=== PATIENT | male | born 1940 | race Caucasian/White ===

== ENCOUNTER → 2018-01-18 | Outpatient (CLI) | payer MEDICARE ==
--- NOTE | 2018-01-18 15:36 | US ---
EXAMINATION TYPE: US thyroid st tissue head/neck DATE OF EXAM: 01/18/2018 COMPARISON: NONE CLINICAL HISTORY: R59.0 ENLARGED LYMPH NODES. Patient stated physician noted right upper neck nodes: order was for enlarged lymph nodes, but thyroid US also completed due to incidental thyroid nodules s een during neck survey for lymph nodes GLAND SIZE: Right Lobe: 4.2 x 1.4 x 1.4 cm Overall Parenchyma: homogenous Left Lobe: 55x 2.8 x 1.7 cm Overall Parenchyma: heterogeneous Isthmus Thickness: 1.1 cm NODULES RIGHT: # of nodules measured on right: 2 1. 0.8 X 0.7 x 0.6 cm hypoechoic mixed nodule at the lower pole with well-defined margins. This no dule is wider than tall and shows no intranodular vascularity. 2. 0.8 X 1.1 x 0.6 cm isoechoic solid nodule at the lower pole with well-defined margins. This nodu le is wider than tall and shows no intranodular vascularity. LEFT: # of nodules measured on left: 3 1. 0.8 X 0.5 x 0.4 cm hyperechoic solid nodule at the upper pole with irregular margins; with prima rily calcified nodule. This nodule is wider than tall and shows no intranodular vascularity. 2. 1.3 X 1.3 x 1.1 cm hypoechoic mixed nodule at the lower pole with well-defined margins. This nod ule is wider than tall and shows intranodular vascularity. 3. 2.5 X 2.4 x 1.5 cm hyperechoic mixed nodule at the lower pole with poorly defined margins. This nodule is wider than tall and shows intranodular vascularity. ISTHMUS: # of nodules measured in the isthmus: 1 1. 0.98cm X 0.84 x 0.84 cm hypoechoic mixed nodule at the lower right pole with irregular margins. This nodule is wide as is tall and shows no intranodular vascularity. Bilateral neck scanned: couple of lymph nodes seen inferior to submandibular gland with right upper n misha larger node = 0.8 x 0.7 x 0.8cm and left upper neck node seen = 1.7 x 0.7 x 0.3cm. IMPRESSION: 1. Bilateral thyroid nodules. A larger nodules within the inferior left thyroid lobe near the supracl avicular region.
== END | disposition home or self-care (01) ==
LOC: RADUSWWP 14:25
PROVIDERS: ATTEND Family Medicine
DX: E04.2 Nontoxic multinodular goiter (principal)
CPT/HCPCS: 76536

== ENCOUNTER → 2018-02-08 | Outpatient (CLI) | payer MEDICARE ==
[2018-02-08 09:23] VITALS: BP 122/63; PULSE 58; RESP 12; TEMP 98; BMI 23.0
--- NOTE | 2018-02-08 10:07 | P.GSHP ---
History of Present Illness H&P Date: 02/08/18 Chief Complaint: swelling in bilateral breast The patient is a 77-year-old white male who presents with a complaint of bilateral breast swelling. He states that the breast are painful with palpation. The patient states that he was treated with hormone shots for prostate cancer approximately 2 years ago and this corresponds to the time when he noted increased size of the breast. The patient had bilateral mammograms performed on 9717. The findings were consistent with symmetric retroareolar flame shaped densities compatible with gynecomastia. He had no groups of suspicious calcifications and no focal suspicious masses or architectural distortion noted. The patient has no history of any trauma to the breast. He has no history of any infection in the breast. He has no history of any nipple discharge or skin changes. The patient was treated with radiation and hormone therapy. He did not have any surgery for the prostate cancer. The hormone therapy was leuprolide acetate injections every 6 months, he had three treatments. His last treatment was a year ago. The patient states that the firmness in his breast is eating worse despite the fact he has not had any of the hormone treatments for over a year. His last PSA was 0.09. Family History: no family history of cancer Surgical History: 1. back surgery for herniated disc 2. pacemaker Medical history: 1. Multiple sclerosis 2. Atrial fibrillation 3. Prostate cancer treated medically 4. History of myocardial infarction Social History: smoke: stopped 1991, smoked 1PPD/30 years alcohol: beer, 2-3/week drug: none - Constitutional Comment: BMI: 23.1 Constitutional: Denies chills, Denies fever - EENT Eyes: denies blurred vision, denies pain Ears: deny: decreased hearing Ears, nose, mouth and throat: Denies headache, Denies sore throat - Breasts Breasts: bilateral: as per HPI - Cardiovascular Comment: [place], pacemaker, atrial fib Cardiovascular: Reports high blood pressure, Reports irregular heart beat - Respiratory Respiratory: Denies cough, Denies 7 - Gastrointestinal Comment: last colonoscopy 3 years ago Gastrointestinal: Reports constipation, Denies abdominal pain, Denies diarrhea, Denies nausea, Denies vomiting - Genitourinary (Male) Comment: prostate cancer Genitourinary: Denies dysuria, Denies hematuria - Musculoskeletal Comment: back surgery Multiple Sclerosis - Integumentary Integumentary: Denies pruritus, Denies rash - Neurological Comment: multiple sclerosis - Psychiatric Psychiatric: Denies anxiety, Denies depression - Endocrine Endocrine: Denies fatigue, Denies weight change - Hematologic/Lymphatic Comment: warfarren - Allergic/Immunologic Comment: none Past Medical History Past Medical History: Atrial Fibrillation, Hyperlipidemia Additional Past Medical History / Comment(s): MS History of Any Multi-Drug Resistant Organisms: None Reported Past Surgical History: Heart Catheterization, Pacemaker Additional Past Surgical History / Comment(s): PACEMAKER Past Anesthesia/Blood Transfusion Reactions: No Reported Reaction Type of Cardiac Device: Permanent Pacemaker Device Placement Date:: 05/02/11 Past Psychological History: No Psychological Hx Reported Smoking Status: Former smoker Past Alcohol Use History: Occasional Past Drug Use History: None Reported Medications and Allergies Home Medications Medication Instructions Recorded Confirmed Type Aspirin 81 mg PO DAILY 09/02/13 02/08/18 History Baclofen [Lioresal] 10 mg PO TID 09/02/13 02/08/18 History Digoxin [Lanoxin] 125 mcg PO DAILY 09/02/13 02/08/18 History Isosorbide Mononitrate [Imdur] 60 mg PO DAILY 09/02/13 02/08/18 History Metoprolol Succinate [Toprol XL] 50 mg PO BID 09/02/13 02/08/18 History Ramipril [Altace] 10 mg PO DAILY 09/02/13 02/08/18 History Simvastatin [Zocor] 40 mg PO AC-SUPPER 09/02/13 02/08/18 History Warfarin [Coumadin] 2.5 mg PO DAILY 09/02/13 02/08/18 History Gabapentin [Neurontin] 600 mg PO HS 04/14/14 02/08/18 History Allergies Allergy/AdvReac Type Severity Reaction Status Date / Time No Known Allergies Allergy Verified 09/02/13 10:51 Surgical - Exam Vital Signs Temp Pulse Resp BP 98 F 58 L 12 122/63 02/08/18 09:18 02/08/18 09:18 02/08/18 09:18 02/08/18 09:18 BMI 23.1 - General thin moderate distress - Eyes normal ocular movement - ENT normal pinna - Neck no masses, trachea midline - Respiratory normal respiratory effort, clear to auscultation - Cardiovascular Rhythm: regular Heart Sounds: normal: S1, S2 - Abdomen Abdomen: soft Hernia: inguinal - Genitourinary no testicular masses testicles present, testicles non-tender - Integumentary no rash, no abnormal pigmentation - Neurologic week lower extremities - Musculoskeletal gait affected uses a cane - Psychiatric oriented to time, oriented to person, oriented to place, speech is normal, memory intact Breast examination: Right breast: Multi-positional exam firmness under the nipple area over area believed to be related to gynecomastia; the area of fullness is 3 x 3 cm Right axilla: No adenopathy of concern Left breast: Firmness under the nipple areolar area believed to be related to gynecomastia no other dominant masses or nodules of concern in either breast, area of fullness is 6 x 6 cm Left axilla: No adenopathy of concern Results Radiographic reports reviewed Assessment and Plan Assessment: Impression: 1. Bilateral gynecomastia 2. History of prostate cancer patient with Lupron 3. Normal testicular exam 4. Atrial fibrillation 5. Multiple sclerosis 6. History of back surgery for ruptured disc Plan: 1. Close surveillance of gynecomastia will follow up in 3 month's time to determine if this is increasing in size 2. Medical management of medical conditions At had a discussion with the patient and his regarding surgical intervention versus watchful waiting. At this time I have reassured them that I did not believe that this is a malignancy. I think it is very reasonable to follow this conservatively and see its natural course. CC: Dr. Jeison Reyes
== END | disposition home or self-care (01) ==
LOC: WWCWWP 09:12
PROVIDERS: ATTEND Surgery
DX: Z53.9 Procedure and treatment not carried out, unspecified reason (principal)

== ENCOUNTER 2018-03-29 09:24 | Day surgery (SDC) | payer MEDICARE ==
[~2018-03-29 09:24] MED LIST: ALPRAZolam 0.25 MG TAB PO ONE
[2018-03-29 10:07] LABS: INR 1.2 (<1.2); Prothrombin Time 12.2 sec (9.0-12.0)
[2018-03-29 10:09] VITALS: RESP 16; TEMP 97.8
--- NOTE | 2018-03-29 11:46 | US ---
ULTRASOUND GUIDED FNA THYROID BIOPSY: CLINICAL HISTORY: Request for 2 left-sided thyroid nodules for FNA FINDINGS: The procedure was explained to the patient. The risks, complications, benefits and alternatives were discussed and any questions were answered. Informed consent was obtained. Patient was placed supin e on the ultrasound table and prepped and draped in the usual sterile fashion. Utilizing a 25 gauge needle, five passes were made into the 2 requested left thyroid nodules. Patient was stable throughout the procedure. Pathology is pending. All elements of maximal barrier technique were utilized. IMPRESSION: 1. Successful ultrasound guided FNA thyroid biopsy.
[2018-03-29 13:47] VITALS: BP 142/70; PULSE 58
== END 2018-03-29 11:00 | disposition home or self-care (01) ==
LOC: RADPROMAIN 09:24
PROVIDERS: ATTEND Surgery Plastic and Reconstructive Surgery
DX: E04.1 Nontoxic single thyroid nodule (principal)
CPT/HCPCS: 10022; 36415; 76942; 85610; 88173; 88305

== ENCOUNTER → 2018-08-08 | Outpatient (CLI) | payer MEDICARE ==
[2018-08-08 10:15] VITALS: BP 114/71; PULSE 81; RESP 18; TEMP 97.2; BMI 23.0
--- NOTE | 2018-08-08 10:44 | P.PN ---
Subjective Progress Note Date: 08/08/18 Principal diagnosis: bilateral gynecomastia There is a 78-year-old white male who presented initially with a complaint of bilateral breast swelling. His breasts were noted to be painful with palpation. Patient states his breast have become more swollen since his visit in January. They are painful greatest with palpation. The patient had been treated with hormone shots for prostate cancer approximately 2-1/2 years ago and this corresponded to the time when he noted increase in size of his breast. The patient had bilateral mammograms performed in December 2017. The findings were consistent with gynecomastia. The patient has no history of any trauma to his breast. He has no history of any infections breast. No history of any nipple discharge or skin changes. The patient was treated for his prostate cancer with radiation and hormone therapy. He did not have any surgery for the prostate cancer, he was treated with leuprolide acetate injections every 6 months and he had 3 of these treatments. His last treatment was approximately year and a half ago. He is uncertain as to whether the pain is any worse although the breast are larger. The left is now larger than the right side. The patient's medications include Neurontin baclofen Isorbid cerivastatin Altase metipranolol digoxin Coumadin aspirin and Ocrevus, for primary progressive MS. Family History: none of cancer Surgical history: 1. Back surgery for herniated disc 2. Pacemaker Medical history: 1. Primary progressive multiple sclerosis 2. Atrial fibrillation 3. Prostate cancer treated medically 4. History of myocardial infarction Social history: Smoke: Stopped in 1991 had smoked 1 pack per day for 30 years Alcohol:. 2-3 per week Drugs: Negative Review of systems HEENT: Negative Lungs: Negative Cardiac: Atrial fibrillation, history of myocardial infarction GI: Intermittent constipation last colonoscopy approximately 4 years ago : Negative Musculoskeletal: Primary progressive multiple sclerosis arthritis Psychiatric: negative neurologic: weak right side hematologic: Coumadin for atrial fibrillation Allergies: none Objective - Vital Signs Vital signs: Vital Signs Temp 97.2 F L 08/08/18 10:09 Pulse 81 08/08/18 10:09 Resp 18 08/08/18 10:09 BP 114/71 08/08/18 10:09 Pulse Ox 94 L 08/08/18 10:09 Intake & Output 08/07/18 08/08/18 08/08/18 18:59 06:59 18:59 Weight 77.111 kg - Exam BMI 23.1 - Constitutional General appearance: Present: average body habitus - EENT Eyes: Present: EOMI ENT: Present: hearing grossly normal - Neck Neck: Present: normal ROM - Respiratory Respiratory: bilateral: CTA - Cardiovascular Rhythm: regular Heart sounds: normal: S1, S2 - Gastrointestinal General gastrointestinal: Present: soft - Musculoskeletal Musculoskeletal: Present: right sided weakness - Psychiatric Psychiatric: Present: A&O x's 3, appropriate affect, intact judgment & insight - Additional findings Additional findings: Breast examination: Right breast: Multiple positional exam fibrocystic changes, mild fullness under the nipple areolar complex consistent with gynecomastia Right axilla: No adenopathy of concern Left breast: Slightly larger than right breast, multi-positional exam fibrocystic changes, mild fullness under the nipple area complex consistent with gynecomastia like changes beneath the nipple areolar complex Left axilla: No adenopathy of concern Assessment and Plan Assessment: Impression: 1. Bilateral gynecomastia left side slightly larger than the right side 2. Progressive primary multiple sclerosis 3. Right-sided weakness 4. History of prostate cancer treated with anti-hormone therapy and radiation 5. Atrial fibrillation 6. Back surgery for ruptured disc Plan: 1. Close surveillance of gynecomastia follow up in 6 month's time to watch this area 2. Medical management of medical conditions We have discussed repeating an ultrasound and this will be done at his next visit at this time the patient and his understand the options surgical intervention but wanted to wait. If the area increases in size such that they're concerned they will see me before otherwise I'll see him in 6 months time at this time there is no indication that there is any malignancy. Testicular exam was performed at his last appointment, at this appointment he states that his testicles have not changed in size and there are no lumps or nodules. Cc: Dr. Jeison Reyes
== END ==
LOC: WWCWWP 09:26
PROVIDERS: ATTEND Surgery
DX: Z53.9 Procedure and treatment not carried out, unspecified reason (principal)

== ENCOUNTER → 2018-08-14 | Outpatient (CLI) | payer MEDICARE ==
[~2018-08-14] MED LIST changes: -ALPRAZolam 0.25 MG TAB PO ONE; +SODIUM CHLORIDE 0.9% 500 ML 500 ML in EMPTY BAG 1 BAG IV PRN; +methylPREDNISolone SOD SUCC 1,000 MG in SODIUM CHLORIDE 0.9% 250 ML IVPB ONE
[2018-08-14 14:00] VITALS: BP 128/69; PULSE 75; RESP 16; TEMP 97.6
== END ==
LOC: PROCWHC3 13:17
PROVIDERS: ATTEND Psychiatry & Neurology Neurology
DX: G35 Multiple sclerosis (principal)
CPT/HCPCS: 96365; J2930

== ENCOUNTER 2018-10-31 10:29 | Emergency (ER) | payer MEDICARE ==
[2018-10-31 10:54] VITALS: BP 153/79; PULSE 65; RESP 18; TEMP 98
--- NOTE | 2018-10-31 11:13 | ED ---
Head Injury HPI - General Chief complaint: Head Injury Stated complaint: Fall-Head Lac Time Seen by Provider: 10/31/18 10:56 Source: patient, family Mode of arrival: wheelchair Limitations: no limitations - History of Present Illness Initial comments: Patient is a 78-year-old male who presents emergency Department with complaints of a fall 2 hours ago. Patient has past medical history of MS and is on Coumadin for A. fib. Patient states he was doing his daily stretches when he lost his balance and fell backwards hitting the back of his head on an end table. Patient denies LOC, headache, nausea, vomiting, changes in his vision. was also home at that time and states he did not lose consciousness. Patient denies being dizzy at this time. Patient's wound on his head is bleeding very minimally. No other complaints at this time. - Related Data Home Medications Medication Instructions Recorded Confirmed Aspirin 81 mg PO DAILY 09/02/13 09/13/18 Baclofen [Lioresal] 10 mg PO TID 09/02/13 09/13/18 Digoxin [Lanoxin] 125 mcg PO DAILY 09/02/13 09/13/18 Isosorbide Mononitrate [Imdur] 60 mg PO DAILY 09/02/13 09/13/18 Ramipril [Altace] 10 mg PO DAILY 09/02/13 09/13/18 Simvastatin [Zocor] 40 mg PO AC-SUPPER 09/02/13 09/13/18 Warfarin [Coumadin] 2.5 mg PO TH 09/02/13 09/13/18 Gabapentin [Neurontin] 600 mg PO HS 04/14/14 09/13/18 Metoprolol Tartrate [Lopressor] 50 mg PO BID 03/06/18 09/13/18 Warfarin [Coumadin] 1.25 mg PO SUTUWETHSA 03/06/18 09/13/18 Allergies/Adverse reactions: Allergies Allergy/AdvReac Type Severity Reaction Status Date / Time No Known Allergies Allergy Verified 10/31/18 10:48 Review of Systems ROS Statement: Those systems with pertinent positive or pertinent negative responses have been documented in the HPI. ROS Other: All systems not noted in ROS Statement are negative. Past Medical History Past Medical History: Atrial Fibrillation, Hypertension, Myocardial Infarction ([place]), Prostate Disorder, Thyroid Disorder Additional Past Medical History / Comment(s): MS, hx. prostate cancer 2014-had radiation Last Myocardial Infarction Date:: unk History of Any Multi-Drug Resistant Organisms: None Reported Past Surgical History: Back Surgery, Heart Catheterization, Pacemaker Additional Past Surgical History / Comment(s): PACEMAKER Past Anesthesia/Blood Transfusion Reactions: No Reported Reaction Type of Cardiac Device: Permanent Pacemaker Device Placement Date:: 05/02/11 Past Psychological History: No Psychological Hx Reported Smoking Status: Former smoker Past Alcohol Use History: Occasional Past Drug Use History: None Reported - Past Family History Mother Family Medical History: No Reported History General Exam - General Exam Comments Initial Comments: GENERAL: Well-appearing, well-nourished and in no acute distress. HEAD: Atraumatic, normocephalic. Patient has laceration on the right posterior lateral aspect about 4.5 cm in length. Very minimal bleeding at this time. EYES: Pupils equal round and reactive to light, extraocular movements intact, sclera anicteric, conjunctiva are normal. ENT: TMs normal, nares patent, oropharynx clear without exudates. Moist mucous membranes. NECK: Normal range of motion, supple without lymphadenopathy or JVD. LUNGS: Breath sounds clear to auscultation bilaterally and equal. No wheezes rales or rhonchi. HEART: Regular rate and rhythm without murmurs, rubs or gallops. ABDOMEN: Soft, nontender, normoactive bowel sounds. No guarding, no rebound. No masses appreciated. : Deferred EXTREMITIES: Normal range of motion, no pitting or edema. No clubbing or cyanosis. NEUROLOGICAL: Cranial nerves II through XII grossly intact. Normal speech. PSYCH: Normal mood, normal affect. SKIN: Warm, Dry, normal turgor, no rashes Limitations: no limitations Course Vital Signs 10/31/18 10/31/18 10:48 14:04 Temperature 98.0 F 98.0 F Pulse Rate 65 65 Respiratory 18 18 Rate Blood Pressure 153/79 153/79 O2 Sat by Pulse 98 98 Oximetry Procedures - Laceration Laceration #1 Consent Obtained: verbal consent Indication: laceration Site: scalp (Right posterior lateral scalp) Size (cm): 4 (4.5cm) Description: linear Depth: simple, single layer Anesthetic Used: lidocaine 1% Anesthesia Technique: local infiltration Amount (mls): 1 Pre-repair: irrigated extensively Type of Sutures: nylon Size of Sutures: 4-0 Number of Sutures: 2 Technique: simple, interrupted Complications: bleeding (After ekaterina were applied there was bleeding coming from a small capillary near the wound. 2 sutures were placed to stop the bleeding. bleeding is controlled at time of d/c) Patient Tolerated Procedure: well Additional Comments: 2 ekaterina were used to close the deep part of the wound. Medical Decision Making - Medical Decision Making Patient is a 78-year-old male with complaints of a fall and laceration on the back of his head. Patient has past medical history of MS and is on Coumadin for A. fib. Patient lost his balance today doing his morning stretches and fell backwards hitting his right posterior aspect of his head on a corner of a and table. On exam patient has a 4.5 cm laceration to the posterior lateral aspect of the scalp. CT of the brain shows no acute intracranial process. 2 ekaterina were used to close the deep part of the laceration. Patient did have a small capillary that was bleeding and not controlled with pressure or a silver nitrate stick. 2 sutures were used to close around the capillary. Bleeding was controlled time of discharge. Patient will have ekaterina and sutures removed in 7-10 days. Return parameters were discussed with the patient and his and they verbalize understanding. Patient will be discharged home. Case is discussed with Dr. Michelle. Disposition Clinical Impression: Contusion of scalp, Fall, Laceration of scalp Disposition: HOME SELF-CARE Condition: Stable Instructions (If sedation given, give patient instructions): Staple Care (ED), Fall Prevention (ED) Additional Instructions: Please return to the Emergency Department if symptoms worsen or any other concerns. Ekaterina need to be removed in 7-10 days. Is patient prescribed a controlled substance at d/c from ED?: No Referrals: Jeison Reyes MD [Primary Care Provider] - 1-2 days
--- NOTE | 2018-10-31 11:41 | CT ---
EXAMINATION TYPE: CT brain wo con DATE OF EXAM: 10/31/2018 COMPARISON:04/14/2014 INDICATION: Fall on Coumadin DLP: 1146.4 mGycm, Automated exposure control for dose reduction was used. CONTRAST: None CT of the brain is performed utilizing 3 mm thick sections through the posterior fossa and 3 mm thick sections through the remaining calvarium. Study is performed within 24 hours of arrival to the hosp [facility]. No abnormal hyperdensity is present to suggest an acute intracranial hemorrhage. There may be a soft tissue injury over the right parietal vertex. Bandaging appears to be present. No mass lesion is evident. No acute infarcts are evident. Ventricles and sulci are only prominent for the patient age. There is an air-fluid level within the left maxillary sinus. Mucosal thickening or air-fluid levels w ithin the right maxillary sinus. Correlate for acute maxillary sinusitis. IMPRESSIONS: 1. No acute intracranial process. 2. Clinical correlation recommended for acute bilateral maxillary sinusitis.
[2018-10-31] MEDS ORDERED: SILVER NITRATE APPLICATOR 1 EACH STICK..EA. TOPICAL STA (12:43)
[2018-10-31] MEDS ORDERED: LIDOCAINE 1% INJ 10MG/ML (20 ML MDV) SQ ONE (13:17)
== END 2018-10-31 14:05 | disposition home or self-care (01) ==
LOC: EC 10:29
DX: S01.01XA Laceration without foreign body of scalp, initial encounter (principal); I48.91 Unspecified atrial fibrillation; I10 Essential (primary) hypertension; I25.2 Old myocardial infarction; Z85.46 Personal history of malignant neoplasm of prostate; Z95.818 Presence of other cardiac implants and grafts; Z95.0 Presence of cardiac pacemaker; Z87.891 Personal history of nicotine dependence; Z79.82 Long term (current) use of aspirin; Z79.01 Long term (current) use of anticoagulants; Z79.899 Other long term (current) drug therapy; W19.XXXA Unspecified fall, initial encounter; Y93.B9 Activity, other involving muscle strengthening exercises; Y92.009 Unspecified place in unspecified non-institutional (private) residence as the place of occurrence of the external cause
CPT/HCPCS: 70450; 99283; 12002; J2001

== ENCOUNTER 2018-11-29 11:05 | Day surgery (SDC) | payer MEDICARE ==
[2018-11-26 10:36] VITALS: BMI 23.0
[~2018-11-29 11:05] MED LIST changes: +DEXAMETHASONE SOD PHOSPHATE 10 MG/ML 1 ML VIAL IV ONE; +HEPARIN SODIUM,PORCINE 5,000 UNIT/ML 1 ML VIAL SQ ONE; +HYDROmorphone 0.5 MG/0.5 ML SYRINGE IVP PRN; +LACTATED RINGERS 1,000 ML IV SCH; +MIDAZOLAM 2 MG/2 ML VIAL IV PRN; +ONDANSETRON 4 MG/2 ML VIAL IVP ONE; -SODIUM CHLORIDE 0.9% 500 ML 500 ML in EMPTY BAG 1 BAG IV PRN; -methylPREDNISolone SOD SUCC 1,000 MG in SODIUM CHLORIDE 0.9% 250 ML IVPB ONE
--- NOTE | 2018-11-29 11:14 | P.GSHP ---
History of Present Illness H&P Date: 11/29/18 CHIEF COMPLAINT: Inguinal hernia, right. HISTORY OF PRESENT ILLNESS: The patient is a 78-year-old male who presents with a history of swelling and pain along the right groin. He has noted increased swelling including pain of the area. Now he presents for repair of his inguinal hernia. PAST MEDICAL HISTORY: Please see list. PAST SURGICAL HISTORY: Please see list. MEDICATIONS: Please see list. ALLERGIES: Please see list. SOCIAL HISTORY: No illicit drug use FAMILY HISTORY: No reports of Crohn disease or ulcerative colitis. REVIEW OF ORGAN SYSTEMS: CONSTITUTIONAL: No reports of fevers or chills. No reports of weight loss despite prior attempts. GI: Denies any blood in stools or constipation. PHYSICAL EXAM: VITAL SIGNS: Stable GENERAL: Well-developed pleasant in no acute distress. HEENT: No scleral icterus. Extraocular movements grossly intact. Moist buccal mucosa. NECK: Supple without lymphadenopathy. CHEST: Unlabored respirations. Equal bilateral excursions. CARDIOVASCULAR: Regular rate and rhythm. Distal 2+ pulses. ABDOMEN: Soft, nondistended. No peritoneal signs. Moderate tenderness right lower quadrant MUSCULOSKELETAL: No clubbing, cyanosis, or edema. ASSESSMENT: 1. Inguinal hernia, right initial and symptomatic. PLAN: 1. Recommend proceeding robotic inguinal repair with mesh with possible bilateral approach. 2. Benefits and risks of surgical intervention was discussed including possibility of open technique. 3. DVT prophylaxis. 4. Antibiotic prophylaxis. Past Medical History Past Medical History: Atrial Fibrillation, Cancer, Hyperlipidemia, Hypertension, Myocardial Infarction ([place]), Osteoarthritis ([place]), Prostate Disorder, Thyroid Disorder Additional Past Medical History / Comment(s): MS, hx. prostate cancer 2014-had radiation Last Myocardial Infarction Date:: unk DATE History of Any Multi-Drug Resistant Organisms: None Reported Past Surgical History: Back Surgery, Heart Catheterization, Pacemaker Additional Past Surgical History / Comment(s): PACEMAKER, Past Anesthesia/Blood Transfusion Reactions: No Reported Reaction Type of Cardiac Device: Permanent Pacemaker Device Placement Date:: 05/02/11 Smoking Status: Former smoker - Past Family History Mother Family Medical History: No Reported History Medications and Allergies Home Medications Medication Instructions Recorded Confirmed Type Aspirin 81 mg PO DAILY 09/02/13 11/26/18 History Baclofen [Lioresal] 10 mg PO TID 09/02/13 11/26/18 History Digoxin [Lanoxin] 125 mcg PO HS 09/02/13 11/26/18 History Isosorbide Mononitrate [Imdur] 60 mg PO DAILY 09/02/13 11/26/18 History Ramipril [Altace] 10 mg PO HS 09/02/13 11/26/18 History Simvastatin [Zocor] 40 mg PO AC-SUPPER 09/02/13 11/26/18 History Warfarin [Coumadin] 2.5 mg PO MOWEFRSA 09/02/13 11/26/18 History Gabapentin [Neurontin] 600 mg PO HS 04/14/14 11/26/18 History Metoprolol Tartrate [Lopressor] 50 mg PO BID 03/06/18 11/26/18 History Warfarin [Coumadin] 1.25 mg PO SUTUTH 03/06/18 11/26/18 History Gabapentin [Neurontin] 300 mg PO 0700,1500 11/26/18 11/26/18 History Allergies Allergy/AdvReac Type Severity Reaction Status Date / Time No Known Allergies Allergy Verified 11/26/18 09:57
[2018-11-29] MEDS ORDERED: LIDOCAINE 1% 20 ML VIAL (10MG/ML) FOR IV START INTRADERMA ONE (12:13)
[2018-11-29 12:25] LABS: Basophils % (A) 1 %; Eosinophils # (A) 0.4 k/uL (0-0.7); Eosinophils % (A) 6 %; HCT 44.5 % (39.0-53.0); HGB 14.6 gm/dL (13.0-17.5); Lymphocytes # (A) 0.8 k/uL (1.0-4.8); Lymphocytes % (A) 13 %; MCH 30.5 pg (25.0-35.0); MCHC 32.8 g/dL (31.0-37.0); MCV 92.9 fL (80.0-100.0); Mean Platelet Volume 7.3; Monocytes # (A) 0.7 k/uL (0-1.0); Monocytes % (A) 11 %; Neutrophils # (A) 4.2 k/uL (1.3-7.7); Neutrophils % (A) 68 %; Platelet Count 148 k/uL (150-450); RBC 4.79 m/uL (4.30-5.90); RDW 13.2 % (11.5-15.5); WBC 6.2 k/uL (3.8-10.6)
[2018-11-29 12:35] LABS: INR 1.3 (<1.2); Prothrombin Time 13.2 sec (9.0-12.0)
[2018-11-29 12:37] LABS: Albumin 4.3 g/dL (3.5-5.0); Calcium 9.4 mg/dL (8.4-10.2); Potassium 4.6 mmol/L (3.5-5.1); Total Protein 6.7 g/dL (6.3-8.2)
[2018-11-29] MEDS ORDERED: MIDAZOLAM PF (FBP) 2 MG/2 ML VIAL IV ONE (12:38)
--- NOTE | 2018-11-29 13:17 | P.ANPRN ---
Procedure Note - Anesthesia - Nerve Block Performed Bilateral Transversus Abdominis Single Time Out Performed: Yes Date of Procedure: 11/29/18 Procedure Start Time: 12:37 Procedure Stop Time: 12:48 Location of Patient Procedure: PreOp Indication: Acute Post-Operative Pain, Requested by physician Sedation Type: Sedate with meaningful contact maintained Preparation: Sterile Prep, Sterile Dressing Position: Supine Catheter: None Needle Types: Pajunk Needle Gauge: 20 Technique: Ultrasound Injectate: Other (see comment) (ropivacaine 0.25% 25 ml per side) Blood Aspirated: No Pain Paresthesia on Injection Noted: No Resistance on Injection: Normal Events: Uneventful and Well Tolerated
[2018-11-29] MEDS ORDERED: NEOSTIGMINE 1 MG/ML 10 ML VIAL ONE ×2 (13:18)
[2018-11-29] MEDS ORDERED: PROPOFOL 10 MG/ML 20 ML VIAL IV ONE ×2 (13:18)
[2018-11-29] MEDS ORDERED: GLYCOPYRROLATE 0.2 MG/ML 2 ML VIAL ONE ×2 (13:18)
[2018-11-29] MEDS ORDERED: PHENYLEPHRINE-0.9% NACL SYG 1 MG/10 ML SYRINGE ONE ×2 (13:18)
[2018-11-29] MEDS ORDERED: fentaNYL (PF) 50 MCG/ML 2 ML AMP ONE ×2 (13:18)
[2018-11-29] MEDS ORDERED: ROPIVACAINE 5 MG/ML 30 ML VIAL ONE (13:18)
[2018-11-29] MEDS ORDERED: LIDOCAINE 1% INJ 10MG/ML (20 ML MDV) ONE ×2 (13:18)
[2018-11-29] MEDS ORDERED: ROCURONIUM BROMIDE 10 MG/ML 10 ML VIAL IV ONE ×2 (13:18)
[2018-11-29] MEDS ORDERED: BUPIVACAIN-EPI 0.25%-1:200,000 30 ML VIAL SQ ONE (14:11)
--- NOTE | 2018-11-29 14:52 | P.OP ---
Date of Procedure: 11/29/18 Description of Procedure: SURGEON: SUNI MCKNIGHT MD PREOPERATIVE DIAGNOSES: 1. Right inguinal hernia. 2. Congestive heart failure 3. Ischemic cardiomyopathy 4. Atrial fibrillation 5. Hypertensive cardiomyopathy 6. Chronic atrial fibrillation 7. Hyperlipidemia 8. History of pacemaker placement 9. Prostatic disorder 10. History of obstructive uropathy 11. Multiple sclerosis POSTOPERATIVE DIAGNOSES: 1. Right inguinal hernia. 2. Congestive heart failure 3. Ischemic cardiomyopathy 4. Atrial fibrillation 5. Hypertensive cardiomyopathy 6. Chronic atrial fibrillation 7. Hyperlipidemia 8. History of pacemaker placement 9. Prostatic disorder 10. History of obstructive uropathy 11. Multiple sclerosis OPERATION: 1. Robotic-assisted da Marli Xi laparoscopic right inguinal hernia repair with mesh, 11.[address] ANESTHESIA: General with local anesthetic ESTIMATED BLOOD LOSS: 5 mL. SPECIMENS REMOVED: None COMPLICATIONS: None. OPERATIVE FINDINGS: 1. Weak posterior floor of the right groin involving the obturator, direct, indirect canal 2. Left groin unremarkable INDICATIONS: The patient is a 78-year-old gentleman who presents with history of right groin pain. Now presents for definitive surgical intervention. Laparoscopic versus open and robotic approaches were discussed. Benefits and risks including bleeding, infection, injury to the vas deferens as well as sterility and chronic groin pain were reviewed. Placement of mesh was also described. Informed consent was obtained. DESCRIPTION: In the preoperative area, the patient was marked with indelible marker along the inguinal hernia. The patient was brought to the operating room and initially laid in supine position. The abdomen had been prepped and draped in standard sterile fashion. Ioban draping was also placed. Prior to incision, a timeout protocol was confirmed with surgical team regarding patient's name including procedures to be performed and location along the right groin. Initial positioning for the robotic assisted ports were selected whereby 20 cm superior to the target anatomy, 0 degree 5 mm laparoscopic trocar entry was performed at the left upper quadrant. The abdomen was insufflated to 15 mmHg which he had tolerated well. Diagnostic laparoscopy demonstrated a indirect inguinal hernia along the right groin. Next, along the epigastrium, 8 mm robot trocar was placed. An 8-mm robotic trocar was placed under direct visualization at the right upper quadrant. An 8 mm port was placed at the left upper quadrant. All trocars were positioned between 8 to 10-cm apart from each other. The 8x8 [employer] Man[employer] XI robot was primed, draped, prepared for docking along the left side of the patient. I then went to the [employer] Xi console. The physician office assistant was at bedside for exchange of the robot arms and equipment. No hernia was identified along the left groin. A very weak floor along the right groin was confirmed with a direct, indirect and obturator hernia type mild defects. As he was very thin with primarily a weak floor, mesh reinforcement was placed. As an onlay, an 11.[address] mesh by [employer] was initially cut in half and entered into the abdominal cavity via the 8 mm trocar. The mesh was tacked to the pelvis using 2-0 VLOC 9-inch length sutures. The robot was undocked from the patient's bedside. I then rescrubbed into the case. Insufflation was released from the abdominal cavity and all instruments were r emoved from the abdominal cavity. The rest of incisions were reapproximated using 4-0 Monocryl in a running subcuticular fashion. Local anesthetic was placed along the incision including for a right groin block. Incisions were cleansed using dilute hydrogen peroxide. Liquid glue was applied to the skin. At the end of the procedure, the needle, sponge and instrument counts had been verified correct by the surgical resident. The patient had tolerated the procedure well and was taken to the postanesthesia care unit in stable condition. Plan - Discharge Summary Discharge Rx Participant: No New Discharge Prescriptions: No Action Ramipril [Altace] 10 mg PO HS Isosorbide Mononitrate [Imdur] 60 mg PO DAILY Baclofen [Lioresal] 10 mg PO TID Warfarin [Coumadin] 2.5 mg PO MOWEFRSA Aspirin 81 mg PO DAILY Digoxin [Lanoxin] 125 mcg PO HS Simvastatin [Zocor] 40 mg PO AC-SUPPER Gabapentin [Neurontin] 600 mg PO HS Warfarin [Coumadin] 1.25 mg PO SUTUTH Metoprolol Tartrate [Lopressor] 50 mg PO BID Gabapentin [Neurontin] 300 mg PO 0700,1500 Discharge Medication List Aspirin 81 mg PO DAILY 09/02/13 [History] Baclofen [Lioresal] 10 mg PO TID 09/02/13 [History] Digoxin [Lanoxin] 125 mcg PO HS 09/02/13 [History] Isosorbide Mononitrate [Imdur] 60 mg PO DAILY 09/02/13 [History] Ramipril [Altace] 10 mg PO HS 09/02/13 [History] Simvastatin [Zocor] 40 mg PO AC-SUPPER 09/02/13 [History] Warfarin [Coumadin] 2.5 mg PO MOWEFRSA 09/02/13 [History] Gabapentin [Neurontin] 600 mg PO HS 04/14/14 [History] Metoprolol Tartrate [Lopressor] 50 mg PO BID 03/06/18 [History] Warfarin [Coumadin] 1.25 mg PO SUTUTH 03/06/18 [History] Gabapentin [Neurontin] 300 mg PO 0700,1500 11/26/18 [History] Follow up Appointment(s)/Referral(s): Suni Mcknight MD [STAFF PHYSICIAN] - 12/03/18 Patient Instructions/Handouts: Inguinal Hernia (DC), Inguinal Hernia Repair (DC) Activity/Diet/Wound Care/Special Instructions: No lifting over 10 pounds in 10 days, December 09. May shower. No bath tub soaks until December 09. Please take Tylenol or ibuprofen or Aleve for pain. START COUMADIN Nov Discharge Disposition: HOME SELF-CARE
[2018-11-29] MEDS ORDERED: TAMSULOSIN 0.4 MG CAP.ER.24H PO STA (14:53)
[2018-11-29 14:57] VITALS: TEMP 96.9
[2018-11-29] MEDS ORDERED: hydrALAZINE HCL 20 MG/ML 1 ML VIAL IVP ONE (15:25)
[2018-11-29 16:00] VITALS: RESP 18
[2018-11-29] MEDS ORDERED: IBUPROFEN 200 MG TAB PO ONE (16:41)
[2018-11-29 16:57] VITALS: BP 133/69; PULSE 65
== END 2018-11-29 17:42 | disposition home or self-care (01) ==
LOC: OR 11:05
PROVIDERS: ATTEND Surgery Plastic and Reconstructive Surgery
DX: K40.90 Unilateral inguinal hernia, without obstruction or gangrene, not specified as recurrent (principal); E07.9 Disorder of thyroid, unspecified; E78.5 Hyperlipidemia, unspecified; G35 Multiple sclerosis; I11.0 Hypertensive heart disease with heart failure; I25.2 Old myocardial infarction; I25.5 Ischemic cardiomyopathy; I48.2 Chronic atrial fibrillation; I50.9 Heart failure, unspecified; M19.90 Unspecified osteoarthritis, unspecified site; N13.9 Obstructive and reflux uropathy, unspecified; Z79.01 Long term (current) use of anticoagulants; Z79.82 Long term (current) use of aspirin; Z85.46 Personal history of malignant neoplasm of prostate; Z92.3 Personal history of irradiation; Z87.891 Personal history of nicotine dependence; Z95.0 Presence of cardiac pacemaker; Z79.899 Other long term (current) drug therapy
CPT/HCPCS: 64486; 80053; 85025; 85610; 49650; C1781; J0360; J1644; J1100; J2710; J0690; J2405; J2001; J3010; J2795; J2370; J2704; J2250

== ENCOUNTER 2019-01-14 06:04 | Day surgery (SDC) | payer MEDICARE ==
[2019-01-09 16:01] VITALS: BMI 23.0
[2019-01-14] MEDS ORDERED: ceFAZolin 1,000 MG in SODIUM CHLORIDE 0.9% IRRIGATIO 250 ML IRRIGATION ONE (06:13)
[2019-01-14] MEDS: SODIUM CHLORIDE 0.9% 1,000 ML IV SCH ×3 (06:47→23:37)
[2019-01-14 06:50] LABS: INR 1.9 (<1.2); Prothrombin Time 18.8 sec (9.0-12.0)
[2019-01-14] MEDS ORDERED: PROPOFOL 10 MG/ML 20 ML VIAL IV ONE (07:15)
[2019-01-14] MEDS ORDERED: MIDAZOLAM 2 MG/2 ML VIAL ONE (07:15)
[2019-01-14] MEDS ORDERED: fentaNYL (PF) 50 MCG/ML 2 ML AMP ONE (07:15)
[2019-01-14] MEDS ORDERED: LIDOCAINE 1% INJ 10MG/ML (20 ML MDV) ONE (07:40)
[2019-01-14] MEDS ORDERED: LIDOCAINE 1% INJ 10MG/ML (20 ML MDV) SQ ONE (08:10)
[2019-01-14] MEDS ORDERED: ACETAMINOPHEN TAB 325 MG TAB PO PRN (08:49)
[2019-01-14] MEDS ORDERED: HYDROcodone/APAP 5-325MG 1 EACH TAB PO PRN (08:49)
--- NOTE | 2019-01-14 10:18 | PCN ---
PROCEDURE NOTE Semaj Peralta is a 78-year-old male patient who has a dual-chamber pacemaker implanted for underlying severe bradycardia. His device is at [facility] and he was brought in for a pacemaker generator change. Patient was brought to the EP lab in a fasting state. Written informed consent was obtained prior to procedure. The left shoulder area was prepped and draped as per protocol. 1% lidocaine was used for local anesthesia. A 4 cm incision was made directly over the generator and carried down to the level of the generator. The generator was explanted, partial capsulectomy was performed. The new generator was implanted, leads were interrogated. Wound was closed in 3 layers and dressed per protocol. The new generator implanted was a [employer] model number W3DR01 serial #[id number]. The right atrial lead was a model #5086 MR145, 45 cm in length and serial number [id number], pacing impedance 456 ohms. The RV lead was a model #5086 MRI, 58 cm length and serial #[id number], pacing impedance 399 ohms, R-waves 3 mV, pacing threshold 1 V at 0.4 milliseconds. The patient tolerated the procedure well without any acute complications. PLAN: Resume all home medications and IV antibiotics perioperatively. MMODL / IJN: [id number] /
[2019-01-14] MEDS ORDERED: ACETAMINOPHEN IV (For NPO) 1,000 MG in EMPTY BAG 1 BAG IVPB ONE (13:00)
[2019-01-14 15:58] VITALS: RESP 18
[2019-01-14] MEDS: GABAPENTIN 300 MG CAP PO SCH ×2 (16:24→21:02)
[2019-01-14] MEDS: BACLOFEN 10 MG TAB PO SCH ×2 (16:24→21:03)
[2019-01-14] MEDS: ATORVASTATIN 20 MG TAB PO SCH (17:28)
[2019-01-14] MEDS ORDERED: DIGOXIN 125 MCG TAB PO SCH (21:00)
[2019-01-14] MEDS ORDERED: GABAPENTIN 300 MG CAP PO SCH (21:00)
[2019-01-14] MEDS ORDERED: LISINOPRIL 20 MG TAB PO SCH (21:00)
[2019-01-14] MEDS: METOPROLOL TARTRATE 50 MG TAB PO SCH (21:02)
[2019-01-15] MEDS: SODIUM CHLORIDE 0.9% 1,000 ML IV SCH (03:18)
[2019-01-15 05:42] VITALS: PULSE 64
[2019-01-15] MEDS: GABAPENTIN 300 MG CAP PO SCH ×2 (06:42→09:53)
--- NOTE | 2019-01-15 08:20 | P.DS ---
Providers Attending physician: Jean Interiano Primary care physician: Jeison Reyes [facility] Course: 0365 Plan - Discharge Summary Discharge Rx Participant: No New Discharge Prescriptions: Continue Ramipril [Altace] 10 mg PO HS Isosorbide Mononitrate [Imdur] 60 mg PO DAILY Baclofen [Lioresal] 10 mg PO TID Warfarin [Coumadin] 2.5 mg PO SUWEFRSA Aspirin 81 mg PO DAILY Digoxin [Lanoxin] 125 mcg PO HS Simvastatin [Zocor] 40 mg PO AC-SUPPER Gabapentin [Neurontin] 600 mg PO HS Warfarin [Coumadin] 1.25 mg PO MOTUTH Metoprolol Tartrate [Lopressor] 50 mg PO BID Gabapentin [Neurontin] 300 mg PO 0700,1500 Discharge Medication List Aspirin 81 mg PO DAILY 09/02/13 [History] Baclofen [Lioresal] 10 mg PO TID 09/02/13 [History] Digoxin [Lanoxin] 125 mcg PO HS 09/02/13 [History] Isosorbide Mononitrate [Imdur] 60 mg PO DAILY 09/02/13 [History] Ramipril [Altace] 10 mg PO HS 09/02/13 [History] Simvastatin [Zocor] 40 mg PO AC-SUPPER 09/02/13 [History] Warfarin [Coumadin] 2.5 mg PO SUWEFRSA 09/02/13 [History] Gabapentin [Neurontin] 600 mg PO HS 04/14/14 [History] Metoprolol Tartrate [Lopressor] 50 mg PO BID 03/06/18 [History] Warfarin [Coumadin] 1.25 mg PO MOTUTH 03/06/18 [History] Gabapentin [Neurontin] 300 mg PO 0700,1500 11/26/18 [History] Follow up Appointment(s)/Referral(s): [facility] [Provider Group] - 01/23/19 9:30 am (Device Check only -Follow up with Dr. Nation to be discussed at this time) Eduar Nation MD [STAFF PHYSICIAN] - 1 Week (Appointment time to be given at device check appointment) Activity/Diet/Wound Care/Special Instructions: PATIENT EDUCATION MATERIAL Instructions following a heart rhythm device generator implant. 1. Keep dressing DRY for ONE week. You may cover the area with Saran or Cling Wrap, prior to a shower. 2. The dressing will be removed after one week in the Device Clinic @ [facility]. Absorbable sutures were used to close the wound. 3. Avoid raising the [left] arm above the shoulder level. [1 week restriction] 4. Avoid arm movements, like backscratching, rubbing the head, or pulling on a cord. (1 weeks restriction) 5. Gentle range of motion movements of the shoulder, closest to the incision should be performed to avoid a frozen shoulder. (Pendulum exercises of the shoulder) 6. The opposite arm may be used freely. 7. Avoid driving for 7 days. 8. Avoid activities such as golfing, swimming, weed whacking, lifting more than 10 pounds weight, bowling, gymnastics and weight training/lifting. (2 weeks restriction) 9. Activities such as wood chopping with an axe, pull-ups in the gymnasium, power lifting, arc-welding, being close to home induction cooktops will always be a problem. In case of any problems, please call [facility], [place], @ [phone], Attention: Device Clinic Restart Coumadin at home Follow up in the device clinic in 5 days No changes in medications Discharge Disposition: HOME SELF-CARE
--- NOTE | 2019-01-15 08:21 | P.DS ---
Providers Attending physician: Jean Interiano Primary care physician: Jeison Reyes [facility] Course: Patient is doing well post pacemaker generator change yesterday. He is sitting comfortably in bed. He has been ambulating with a walker in his room to the bathroom No chest discomfort no dizziness lightheadedness no palpitations. No discomfort over the pacemaker site. Minimal bruising no hematoma On examination afebrile 97.8F pulse rate in the 60s blood pressure 126/72 mmHg Breath sounds are clear no rhonchi no crackles Heart sounds S1 and S2 are normal no murmurs or gallops. Abdomen is soft nontender Extremities warm no edema Impression Underlying severe bradycardia History of atrial fibrillation, paroxysmal Status post dual-chamber pacemaker Pacemaker at [facility], status post pacemaker generator change yesterday Plan Discharge home after completion of IV antibiotics and follow-up in the device clinic in 5 days and follow-up with Dr. Nation as previously scheduled Plan - Discharge Summary Discharge Rx Participant: No New Discharge Prescriptions: Continue Ramipril [Altace] 10 mg PO HS Isosorbide Mononitrate [Imdur] 60 mg PO DAILY Baclofen [Lioresal] 10 mg PO TID Warfarin [Coumadin] 2.5 mg PO SUWEFRSA Aspirin 81 mg PO DAILY Digoxin [Lanoxin] 125 mcg PO HS Simvastatin [Zocor] 40 mg PO AC-SUPPER Gabapentin [Neurontin] 600 mg PO HS Warfarin [Coumadin] 1.25 mg PO MOTUTH Metoprolol Tartrate [Lopressor] 50 mg PO BID Gabapentin [Neurontin] 300 mg PO 0700,1500 Discharge Medication List Aspirin 81 mg PO DAILY 09/02/13 [History] Baclofen [Lioresal] 10 mg PO TID 09/02/13 [History] Digoxin [Lanoxin] 125 mcg PO HS 09/02/13 [History] Isosorbide Mononitrate [Imdur] 60 mg PO DAILY 09/02/13 [History] Ramipril [Altace] 10 mg PO HS 09/02/13 [History] Simvastatin [Zocor] 40 mg PO AC-SUPPER 09/02/13 [History] Warfarin [Coumadin] 2.5 mg PO SUWEFRSA 09/02/13 [History] Gabapentin [Neurontin] 600 mg PO HS 04/14/14 [History] Metoprolol Tartrate [Lopressor] 50 mg PO BID 03/06/18 [History] Warfarin [Coumadin] 1.25 mg PO MOTUTH 03/06/18 [History] Gabapentin [Neurontin] 300 mg PO 0700,1500 11/26/18 [History] Follow up Appointment(s)/Referral(s): [facility] [Provider Group] - 01/23/19 9:30 am (Device Check only -Follow up with Dr. Nation to be discussed at this time) Eduar Nation MD [STAFF PHYSICIAN] - 1 Week (Appointment time to be given at device check appointment) Activity/Diet/Wound Care/Special Instructions: PATIENT EDUCATION MATERIAL Instructions following a heart rhythm device generator implant. 1. Keep dressing DRY for ONE week. You may cover the area with Saran or Cling Wrap, prior to a shower. 2. The dressing will be removed after one week in the Device Clinic @ [facility]. Absorbable sutures were used to close the wound. 3. Avoid raising the [left] arm above the shoulder level. [1 week restriction] 4. Avoid arm movements, like backscratching, rubbing the head, or pulling on a cord. (1 weeks restriction) 5. Gentle range of motion movements of the shoulder, closest to the incision should be performed to avoid a frozen shoulder. (Pendulum exercises of the shoulder) 6. The opposite arm may be used freely. 7. Avoid driving for 7 days. 8. Avoid activities such as golfing, swimming, weed whacking, lifting more than 10 pounds weight, bowling, gymnastics and weight training/lifting. (2 weeks restriction) 9. Activities such as wood chopping with an axe, pull-ups in the gymnasium, power lifting, arc-welding, being close to home induction cooktops will always be a problem. In case of any problems, please call [facility], [place], @ [phone], Attention: Device Clinic Restart Coumadin at home Follow up in the device clinic in 5 days No changes in medications Discharge Disposition: HOME SELF-CARE
[2019-01-15] MEDS: METOPROLOL TARTRATE 50 MG TAB PO SCH (08:30)
[2019-01-15] MEDS: BACLOFEN 10 MG TAB PO SCH ×2 (08:30→09:53)
[2019-01-15 08:32] VITALS: BP 129/72; TEMP 97.3
[2019-01-15] MEDS ORDERED: ISOSORBIDE MONONITRATE ER 60 MG TAB.ER.24H PO SCH (09:00)
[2019-01-15] MEDS ORDERED: ASPIRIN 81 MG PO SCH (09:00)
[2019-01-15] MEDS: ATORVASTATIN 20 MG TAB PO SCH (09:53)
== END 2019-01-15 10:38 | disposition home or self-care (01) ==
LOC: CATHEP 06:04 → 3SCARD 08:40 → CATHEP 01-15 10:38
PROVIDERS: ATTEND Internal Medicine Clinical Cardiac Electrophysiology
DX: Z45.018 Encounter for adjustment and management of other part of cardiac pacemaker (principal); G35 Multiple sclerosis; E78.5 Hyperlipidemia, unspecified; I48.2 Chronic atrial fibrillation; I25.10 Atherosclerotic heart disease of native coronary artery without angina pectoris; I25.5 Ischemic cardiomyopathy; I25.2 Old myocardial infarction; I49.5 Sick sinus syndrome; E78.00 Pure hypercholesterolemia, unspecified; I11.0 Hypertensive heart disease with heart failure; I50.9 Heart failure, unspecified; E07.9 Disorder of thyroid, unspecified; I45.10 Unspecified right bundle-branch block; Z87.891 Personal history of nicotine dependence; Z85.46 Personal history of malignant neoplasm of prostate; Z86.79 Personal history of other diseases of the circulatory system; Z79.01 Long term (current) use of anticoagulants; Z79.899 Other long term (current) drug therapy; Z79.82 Long term (current) use of aspirin
CPT/HCPCS: 33228; 85610; C1785; J2250; J0690 ×2; J2001; J3010; J0131; J2704

== ENCOUNTER → 2019-02-10 | Outpatient (CLI) | payer MEDICARE ==
--- NOTE | 2019-02-10 11:39 | USB ---
Reason for exam: clinical finding. Indicated problem(s): lump or thickening in both breasts. Physical Findings: Nurse did not find any significant physical abnormalities on exam. US Breast BILAT Right complete breast ultrasound includes all four quadrants, the retroareolar region and axilla. Finding demonstrates no cystic or solid lesion seen. Left complete breast ultrasound includes all four quadrants, the retroareolar region and axilla. Finding demonstrates no cystic or solid lesion seen. No axillary adenopathy. There is some subareolar heterogeneity. Mammogram can assess for gynecomastia. These results were verbally communicated with the patient and result sheet given to the patient on 02/10/19. ASSESSMENT: Incomplete: need additional imaging evaluation, BI-RAD 0 RECOMMENDATION: Special view mammogram of both breasts. (patient refused mammography)
== END | disposition home or self-care (01) ==
LOC: RADUSWWP 10:22
PROVIDERS: ATTEND Surgery
DX: N63.10 Unspecified lump in the right breast, unspecified quadrant (principal); N63.20 Unspecified lump in the left breast, unspecified quadrant

== ENCOUNTER → 2019-02-11 | Outpatient (CLI) | payer MEDICARE ==
--- NOTE | 2019-02-12 04:38 | CT ---
EXAMINATION TYPE: CT pelvis wo con DATE OF EXAM: 02/11/2019 COMPARISON: 04/09/2015 HISTORY: 78-year-old male Diverticulitis TECHNIQUE: Contiguous axial scanning of the pelvis without IV contrast. Oral contrast was administere d. Coronal and sagittal reconstructions performed. CT DLP: 366 mGycm Automated exposure control for dose reduction was used. FINDINGS: Marked distention of the urinary bladder up to 14.2 cm. Correlation can be made to ensure that this r epresents voluntary retention. The prostate gland itself measures 3.9 cm wide. Moderate atherosclerotic calcifications infrarenal abdominal aorta and iliac arteries. 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 Possible enlarging, partially visualized lateral mid pole left renal lesion measuring at least 2.2 cm . Enlarging cyst is suspected. Ultrasound could attempt further characterization. Bilateral extra kanwal al pelves. Within the visualized lower abdomen and pelvis, no dilated small bowel or free fluid. Moderate scatte red stool. Sigmoid diverticulosis. No pericolonic inflammatory change seen within the visualized lowe r abdomen or pelvis. A few stable borderline sized left-sided mesenteric lymph nodes measuring up to 9 mm, axial image 11, and 1 cm, axial image 18. Bones: Mild degenerative changes of the hips. Degenerative disc disease and facet arthropathy lower l umbar spine. IMPRESSION: 1. ONLY THE LOWER ABDOMEN AND PELVIS IS IMAGED. THERE IS MODERATE STOOL WITHIN THE VISUALIZED COLON A ND SIGMOID DIVERTICULOSIS. NO ACUTE DIVERTICULITIS IS IDENTIFIED. 2. SCATTERED BORDERLINE TO MILDLY ENLARGED LEFT-SIDED MESENTERIC LYMPH NODES MEASURING UP TO 1 CM REM AIN UNCHANGED FROM 2015 SUGGESTING A BENIGN ETIOLOGY. 3. SUGGESTION OF AN ENLARGING LESION WITHIN THE MIDPOLE OF THE LEFT KIDNEY MEASURING AT LEAST 2.2 CM . AN ENLARGING CYST IS SUSPECTED AND CAN BE CONFIRMED WITH RENAL ULTRASOUND. 4. STABLE 2.3 CM AAA. 5. MARKED URINARY BLADDER DISTENTION. PLEASE CORRELATE TO ENSURE THAT THIS REPRESENTS VOLUNTARY RETEN TION.
== END | disposition home or self-care (01) ==
LOC: RADCTMAIN 12:47
PROVIDERS: ATTEND Surgery Plastic and Reconstructive Surgery
DX: K57.30 Diverticulosis of large intestine without perforation or abscess without bleeding (principal); I71.4 Abdominal aortic aneurysm, without rupture; N32.89 Other specified disorders of bladder
CPT/HCPCS: 72192; Q9967

== ENCOUNTER → 2019-03-07 | Outpatient (CLI) | payer MEDICARE ==
--- NOTE | 2019-03-07 15:03 | CT ---
EXAMINATION TYPE: CT abdomen w con DATE OF EXAM: 03/07/2019 COMPARISON: 04/09/2015 HISTORY: Abdominal pain x6 weeks, Left renal mass CT DLP: 443.0 mGycm Automated exposure control for dose reduction was used. TECHNIQUE: Helical acquisition of images was performed from the lung bases through the top of iliac crest to include entire abdomen. CONTRAST: Performed with Oral Contrast and with IV Contrast, patient injected with 100 ML mL of Isovue 300. FINDINGS: LUNG BASES: Heart is markedly enlarged and there are cardiac leads. Lung bases are clear. Coronary ar chidi calcification noted. LIVER/GB: No significant abnormality is appreciated. PANCREAS: No significant abnormality is seen. SPLEEN: Splenic granuloma noted. ADRENALS: No significant abnormality is seen. KIDNEYS: No nephrolithiasis. No hydronephrosis is present. There is a cortical renal cysts on the superior pole left kidney measuring 1.7 cm. Left kidney appear s small with thin cortex in relation to the right with some cortical loss. There is interval increase in size of a mid pole lateral renal cyst measuring 1.2 cm and 3 Hounsfield units. Lobulation along the lateral margin the right kidney is again noted but appears stable. Right-sided p arapelvic renal cyst has increased in size and measures 14 Hounsfield units compatible with cyst and 2 cm. BOWEL: Loops of bowel within the abdomen and pelvis are normal. There are loops of bowel which are i ncompletely distended or lack oral contrast limiting their evaluation. LYMPH NODES: No significant abnormality is seen. OSSEOUS STRUCTURES: Hypertrophic and degenerative change of the spine.. OTHER: There is a cystic mass in the left upper quadrant adjacent to the stomach. 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 Measures approximately 10 Hounsfie ld units and 3.9 cm. Retrospectively also noted on the CT scan of 2012 CT chest.There is mild aneurys mal dilation of the infrarenal abdominal aorta measuring 3.2 cm with extension into the left iliac ar chidi measuring 1.4 cm. 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 Small residual accessory left renal artery not excluded. IMPRESSION: 1. There is bilateral renal masses which measure low 15 Hounsfield units compatible with cysts. No mathew spicious appearing mass. Correlate for medical renal disease involving an atrophic left kidney with r enal cortical loss. 2. Retrospectively there is a stable cystic mass in the left upper quadrant adjacent to the gastric f undus. This is noted dating back to 2011 and also measures below 15 Hounsfield units. 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 3. There is mild aneurysmal dilation of the infrarenal abdominal aorta measuring 3.2 cm with extensio n into the left iliac artery measuring 1.4 cm. 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 Small residual accessory left renal arter y not excluded.
== END ==
LOC: RADCTMAIN 13:01
PROVIDERS: ATTEND Urology
DX: N28.89 Other specified disorders of kidney and ureter (principal); I71.4 Abdominal aortic aneurysm, without rupture; R19.02 Left upper quadrant abdominal swelling, mass and lump
CPT/HCPCS: 82565; 84520; 74160; 36415; Q9967

== ENCOUNTER → 2019-09-02 | Outpatient (CLI) | payer MEDICARE | END | disposition home or self-care (01) | LOC: LABWHC1 11:56 | PROVIDERS: ATTEND Surgery Plastic and Reconstructive Surgery | DX: Z11.59 Encounter for screening for other viral diseases (principal) | CPT/HCPCS: 87635 ==

== ENCOUNTER 2019-09-04 07:28 | Day surgery (SDC) | payer MEDICARE ==
[2019-09-03 11:00] VITALS: BMI 23.7
--- NOTE | 2019-09-03 21:18 | P.GSHP ---
History of Present Illness H&P Date: 09/04/19 CHIEF COMPLAINT: History of intra-abdominal adhesions HISTORY OF PRESENT ILLNESS: The patient is a 79-year-old male who presents with history of intra-abdominal adhesions from multiple prior surgeries including increasing abdominal pain. She now presents for diagnostic laparoscopy including lysis of adhesions. PAST MEDICAL HISTORY: Please see list. PAST SURGICAL HISTORY: Please see list. MEDICATIONS: Please see list. ALLERGIES: Please see list. SOCIAL HISTORY: No illicit drug use FAMILY HISTORY: No reports of Crohn disease or ulcerative colitis. REVIEW OF ORGAN SYSTEMS: CONSTITUTIONAL: No reports of fevers or chills. PHYSICAL EXAM: VITAL SIGNS: Stable GENERAL: Well-developed pleasant and in no acute distress. HEENT: No scleral icterus. Extraocular movements grossly intact. Moist buccal mucosa. NECK: Supple without lymphadenopathy. CHEST: Unlabored respirations. Equal bilateral excursions. CARDIOVASCULAR: Regular rate and rhythm. Distal 2+ pulses. ABDOMEN: Soft, right lower quadrant tenderness. No peritonitis. MUSCULOSKELETAL: No clubbing, cyanosis, or edema. ASSESSMENT: 1. Right lower quadrant abdominal pain. 2. History of previous abdominal surgery. PLAN: 1. He does have a mesh along the right groin, which may actually exacerbate his symptoms, including peritoneal adhesions. I have recommended robotic lysis of adhesions as he reports his pain has been long standing for the past 4-6 months. 2. The patient is at elevated risk secondary to history of musculoskeletal degenerative disorder as well as cardiac disease, and genitourinary disease. 3. DVT prophylaxis. 4. Antibiotic prophylaxis. Past Medical History Past Medical History: Atrial Fibrillation, Coronary Artery Disease (CAD), Cancer, CVA/TIA, Hypertension, Myocardial Infarction ([place]), Osteoarthritis (OA), Prostate Disorder, Thyroid Disorder Additional Past Medical History / Comment(s): MS - states weakness right side, Hx of TIA, prostate cancer 2015 with radiation tx., Pacemaker, back pain. Last Myocardial Infarction Date:: unk DATE History of Any Multi-Drug Resistant Organisms: None Reported Past Surgical History: Back Surgery, Heart Catheterization, Hernia Repair, Pacemaker Additional Past Surgical History / Comment(s): PACEMAKER, Generator change- 01/14/2019 Past Anesthesia/Blood Transfusion Reactions: No Reported Reaction Type of Cardiac Device: Permanent Pacemaker Device Placement Date:: 05/02/11 Past Psychological History: No Psychological Hx Reported Smoking Status: Former smoker Past Alcohol Use History: Occasional Additional Past Alcohol Use History / Comment(s): STARTED SMOKING AT AGE 20 quit smoking 1992, smoked 1ppd Past Drug Use History: None Reported - Past Family History Mother Family Medical History: No Reported History Sister(s) Family Medical History: Cancer Additional Family Medical History / Comment(s): skin cancer Medications and Allergies Home Medications Medication Instructions Recorded Confirmed Type Aspirin 81 mg PO DAILY 09/02/13 09/03/19 History Baclofen [Lioresal] 10 mg PO TID 09/02/13 09/03/19 History Digoxin [Lanoxin] 125 mcg PO HS 09/02/13 09/03/19 History Isosorbide Mononitrate [Imdur] 60 mg PO HS 09/02/13 09/03/19 History Ramipril [Altace] 10 mg PO DAILY@1800 09/02/13 09/03/19 History Simvastatin [Zocor] 40 mg PO HS 09/02/13 09/03/19 History Warfarin [Coumadin] 2.5 mg PO SUTH 09/02/13 09/03/19 History Gabapentin [Neurontin] 1,200 mg PO HS 04/14/14 09/03/19 History Metoprolol Tartrate [Lopressor] 50 mg PO BID 03/06/18 09/03/19 History Warfarin [Coumadin] 1.25 mg PO MOTUWEFRSA 03/06/18 09/03/19 History Gabapentin [Neurontin] 300 mg PO 0700,1200 11/26/18 09/03/19 History Magnesium 250 mg PO BID 09/03/19 09/03/19 History Tamsulosin [Flomax] 0.4 mg PO HS 09/03/19 09/03/19 History Allergies Allergy/AdvReac Type Severity Reaction Status Date / Time No Known Allergies Allergy Verified 09/03/19 10:16
[2019-09-04] MEDS ORDERED: LACTATED RINGERS 1,000 ML IV SCH (08:04)
[2019-09-04] MEDS ORDERED: HYDROmorphone 0.5 MG/0.5 ML SYRINGE IVP PRN (08:04)
[2019-09-04] MEDS ORDERED: ACETAMINOPHEN TAB 500 MG TAB PO STA (08:04)
[2019-09-04] MEDS ORDERED: HEPARIN SODIUM,PORCINE 5,000 UNIT/ML 1 ML VIAL SQ STA (08:04)
[2019-09-04] MEDS ORDERED: LIDOCAINE 1% (10MG/ML) FOR IV START INTRADERMA PRN (08:04)
[2019-09-04] MEDS ORDERED: fentaNYL (PF) 50 MCG/ML 2 ML AMP IV PRN (08:04)
[2019-09-04] MEDS ORDERED: TAMSULOSIN 0.4 MG CAP.ER.24H PO STA (08:04)
[2019-09-04 08:30] LABS: Basophils % (A) 0 %; Eosinophils # (A) 0.3 k/uL (0-0.7); Eosinophils % (A) 6 %; HCT 42.3 % (39.0-53.0); HGB 13.5 gm/dL (13.0-17.5); Lymphocytes # (A) 0.6 k/uL (1.0-4.8); Lymphocytes % (A) 13 %; MCHC 31.9 g/dL (31.0-37.0); MCV 93.8 fL (80.0-100.0); Mean Platelet Volume 8.1; Monocytes # (A) 0.5 k/uL (0-1.0); Monocytes % (A) 10 %; Neutrophils # (A) 3.1 k/uL (1.3-7.7); Neutrophils % (A) 68 %; Platelet Count 122 k/uL (150-450); RBC 4.51 m/uL (4.30-5.90); RDW 13.2 % (11.5-15.5); WBC 4.6 k/uL (3.8-10.6)
[2019-09-04] MEDS ORDERED: DEXAMETHASONE SOD PHOS (MDV) 100 MG/10 ML VIAL IVP ONE (08:31)
[2019-09-04] MEDS ORDERED: ONDANSETRON 4 MG/2 ML VIAL IVP ONE (08:31)
[2019-09-04 08:41] LABS: African American GFR (CKD) >90 (>60 ml/min/1.73 sqM); Anion Gap 6 mmol/L; Blood Urea Nitrogen 20 mg/dL (9-20); Calcium 8.9 mg/dL (8.4-10.2); Carbon Dioxide 28 mmol/L (22-30); Chloride 107 mmol/L (98-107); Glucose 103 mg/dL (74-99); Non-African American GFR(CKD) 81 (>60 ml/min/1.73 sqM); Potassium 4.3 mmol/L (3.5-5.1); Sodium 141 mmol/L (137-145)
[2019-09-04 08:59] LABS: INR 1.3 (<1.2); Prothrombin Time 12.8 sec (9.0-12.0)
[2019-09-04 09:28] LABS: Digoxin 0.7 ng/mL
[2019-09-04] MEDS ORDERED: BUPIVACAIN-EPI 0.25%-1:200,000 30 ML VIAL SQ ONE ×2 (09:42→10:58)
[2019-09-04] MEDS ORDERED: LIDOCAINE 1% INJ 10MG/ML (20 ML MDV) ONE (10:29)
[2019-09-04] MEDS ORDERED: PROPOFOL 10 MG/ML 20 ML VIAL IV ONE (10:29)
[2019-09-04] MEDS ORDERED: ROCURONIUM BROMIDE 10 MG/ML 5 ML VIAL IV ONE (10:29)
[2019-09-04] MEDS ORDERED: MIDAZOLAM 2 MG/2 ML VIAL ONE (10:29)
[2019-09-04] MEDS ORDERED: GLYCOPYRROLATE 0.2 MG/ML 2 ML VIAL ONE (10:29)
[2019-09-04] MEDS ORDERED: NEOSTIGMINE 1 MG/ML 10 ML VIAL ONE (10:29)
[2019-09-04] MEDS ORDERED: fentaNYL (PF) 50 MCG/ML 2 ML AMP ONE (10:29)
[2019-09-04] MEDS ORDERED: SUCCINYLCHOLINE CHLORIDE 100 MG/5 ML SYR IV ONE (10:29)
[2019-09-04] MEDS ORDERED: LACTATED RINGERS 1,000 ML IV ONE (11:15)
--- NOTE | 2019-09-04 11:26 | P.OP ---
Date of Procedure: 09/04/19 Description of Procedure: SURGEON: SUNI MCKNIGHT MD PREOPERATIVE DIAGNOSES: 1. Right lower quadrant abdominal pain 2. Previous history of right inguinal hernia 3. Multiple sclerosis 4. Obstructive uropathy 5. Ischemic cardiomyopathy 6. Atrial fibrillation 7. Chronic Coumadin use 8. Pacemaker in situ 9. History of myocardial infarction 10. History of transient ischemic attack 11. Chronic back pain 12. History of radiation prostate 13. History of prostate cancer POSTOPERATIVE DIAGNOSES: 1. Right lower quadrant abdominal pain 2. Previous history of right inguinal hernia 3. Multiple sclerosis 4. Obstructive uropathy 5. Ischemic cardiomyopathy 6. Atrial fibrillation 7. Chronic Coumadin use 8. Pacemaker in situ 9. History of myocardial infarction 10. History of transient ischemic attack 11. Chronic back pain 12. History of radiation prostate 13. History of prostate cancer 14. Chronic bladder distention OPERATION: 1. Diagnostic laparoscopy ESTIMATED BLOOD LOSS: 1 mL. SPECIMENS REMOVED: None. COMPLICATIONS: None. OPERATIVE FINDINGS: 1. No recurrent inguinal hernia identified 2. No peritoneal adhesions identified 3. Chronically distended bladder INDICATIONS: The patient is a 79-year-old male who presents with progressive abdominal pain lower abdomen particularly of the right abdomen. Multiple diagnostic studies were performed including a CT of the abdomen pelvis. He has previous history of right inguinal hernia repair with mesh placement. For concern of adhesions, diagnostic laparoscopy, lysis of adhesions was described. Surgical intervention with diagnostic laparoscopy, lysis of adhesions were described. Informed consent was obtained. Robotic assisted laparoscopic approach was described. Benefits and risks of the procedure including but not limited to bleeding, infection, injury to the biliary tree was described. Informed consent was obtained. DESCRIPTION OF PROCEDURE: Patient was brought to the operating room, placed in supine position. After general induction, the abdomen had been prepped and draped in standard sterile fashion. The robotic da Marli XI system was primed. After a timeout protocol was performed, the patient had been prepped and draped in standard sterile fashion. A 5 mm 0 degrees laparoscopic trocar entry was performed along the left upper quadrant. The abdomen was insufflated 15 mmHg pressure which he tolerated well. Careful inspection along the right lower abdomen confirmed an intact mesh placement including no recurrent right inguinal hernia. No evidence of peritoneal adhesions were identified. Small bowel was unremarkable without pathology. Chronically distended bladder was identified. The rest of the abdominal wall was unremarkable. Endoscopic images were obtained. No additional surgical pathology was identified. The procedure was discontinued. All pneumoperitoneum and instruments were evacuated from the abdominal cavity. The incisions were reapproximated using 4-0 Monocryl in an interrupted subcuticular fashion. Please note along the trocar sites, local anesthetic was placed as a field block prior to insertion of all instruments. Exofin was applied to the skin. At the end of the procedure needle, sponge, and instrument count had been verified correct by the surgical garment inspector. The patient was transferred to postanesthesia care unit in stable condition. Plan - Discharge Summary Discharge Rx Participant: Yes New Discharge Prescriptions: New Acetaminophen Tab [Tylenol Tab] 500 mg PO Q6H PRN #30 tablet PRN Reason: Pain Continue Ramipril [Altace] 10 mg PO DAILY@1800 Isosorbide Mononitrate [Imdur] 60 mg PO HS Baclofen [Lioresal] 10 mg PO TID Warfarin [Coumadin] 2.5 mg PO SUTH Aspirin 81 mg PO DAILY Digoxin [Lanoxin] 125 mcg PO HS Simvastatin [Zocor] 40 mg PO HS Gabapentin [Neurontin] 1,200 mg PO HS Warfarin [Coumadin] 1.25 mg PO MOTUWEFRSA Metoprolol Tartrate [Lopressor] 50 mg PO BID Gabapentin [Neurontin] 300 mg PO 0700,1200 Tamsulosin [Flomax] 0.4 mg PO HS Magnesium 250 mg PO BID Discharge Medication List Aspirin 81 mg PO DAILY 09/02/13 [History] Baclofen [Lioresal] 10 mg PO TID 09/02/13 [History] Digoxin [Lanoxin] 125 mcg PO HS 09/02/13 [History] Isosorbide Mononitrate [Imdur] 60 mg PO HS 09/02/13 [History] Ramipril [Altace] 10 mg PO DAILY@1800 09/02/13 [History] Simvastatin [Zocor] 40 mg PO HS 09/02/13 [History] Warfarin [Coumadin] 2.5 mg PO SUTH 09/02/13 [History] Gabapentin [Neurontin] 1,200 mg PO HS 04/14/14 [History] Metoprolol Tartrate [Lopressor] 50 mg PO BID 03/06/18 [History] Warfarin [Coumadin] 1.25 mg PO MOTUWEFRSA 03/06/18 [History] Gabapentin [Neurontin] 300 mg PO 0700,1200 11/26/18 [History] Magnesium 250 mg PO BID 09/03/19 [History] Tamsulosin [Flomax] 0.4 mg PO HS 09/03/19 [History] Acetaminophen Tab [Tylenol Tab] 500 mg PO Q6H PRN #30 tablet 09/04/19 [Rx] Follow up Appointment(s)/Referral(s): Suni Mcknight MD [STAFF PHYSICIAN] - 09/09/19 Patient Instructions/Handouts: Exploratory Laparoscopy (DC) Activity/Diet/Wound Care/Special Instructions: Diet as tolerated. START COUMADIN TOMORROW, 09/05/19 Discharge Disposition: HOME SELF-CARE
[2019-09-04 11:39] VITALS: TEMP 97
[2019-09-04 12:02] VITALS: RESP 16
[2019-09-04 12:39] VITALS: BP 108/65; PULSE 60
--- NOTE | 2019-09-04 13:41 | P.PN ---
Progress Note - Text Progress Note Date: 09/04/19 Patient has pre-existing history of obstructive uropathy. Intraoperative findings and clinical symptoms most likely consistent with neurogenic bladder secondary to multiple sclerosis since his abdominal pain. Post void residual of over 500 mL identified. Straight cath advised prior to discharge. Family notified that he will likely need follow-up with neurologist including urologist for neurogenic bladder and may need self catheterizations.
== END 2019-09-04 14:30 | disposition home or self-care (01) ==
LOC: OR 07:28
PROVIDERS: ATTEND Surgery Plastic and Reconstructive Surgery
DX: R10.31 Right lower quadrant pain (principal); N32.89 Other specified disorders of bladder; I25.10 Atherosclerotic heart disease of native coronary artery without angina pectoris; I25.2 Old myocardial infarction; I48.91 Unspecified atrial fibrillation; I25.5 Ischemic cardiomyopathy; G89.29 Other chronic pain; G35 Multiple sclerosis; N13.9 Obstructive and reflux uropathy, unspecified; M19.90 Unspecified osteoarthritis, unspecified site; E07.9 Disorder of thyroid, unspecified; Z85.46 Personal history of malignant neoplasm of prostate; Z92.3 Personal history of irradiation; Z86.73 Personal history of transient ischemic attack (TIA), and cerebral infarction without residual deficits; Z95.0 Presence of cardiac pacemaker; Z79.01 Long term (current) use of anticoagulants; Z79.82 Long term (current) use of aspirin; Z79.899 Other long term (current) drug therapy
CPT/HCPCS: 93005; 80048; 80162; 85025; 85610; 49320; J2250; J1644; J2710; J0690; J2405; J2001; J3010; J1100; J0330; J2704

== ENCOUNTER 2020-04-06 12:35 | Inpatient (IN) | payer MEDICARE ==
[2020-04-06] MEDS ORDERED: SODIUM CHLORIDE 0.9% 500 ML 500 ML IV STA (13:04)
[2020-04-06] MEDS ORDERED: SODIUM CHLORIDE 0.9% 1,000 ML IV STA (13:04)
--- NOTE | 2020-04-06 13:16 | ED ---
General Adult HPI - General Chief complaint: Weakness Stated complaint: weakness Time Seen by Provider: 04/06/20 12:49 Source: patient Mode of arrival: ambulatory Limitations: no limitations - History of Present Illness Initial comments: This 79-year-old male presents complaining of generalized weakness. He states that the onset occurred approximately 8 days ago. He has chronic right-sided weakness due to his multiple sclerosis but this is throughout his entire body. He states that it took him 45 minutes to get off the toilet yesterday. It is be en progressively worsening. He denies any shortness of breath but does present with a pulse oximeter reading of 92%. He denies any chest pain. He states that he will break out in sweats at times and have chills but denies any actual fevers. There is no loss of taste or loss of smell. He complains of some abdominal bloating but he has had this intermittently for quite some time and is said to previous computed tomography scan workups in the last year. He denies any nausea, vomiting, diarrhea, or constipation. In addition, he states that he fell approximately one week ago and had his left superior head. He is currently on Coumadin. He did not lose any consciousness. He denies any other injuries, neck pain, or back pain. He denies being exposed to anyone with the covid infection. No other complaints or modifying factors. - Related Data Home Medications Medication Instructions Recorded Confirmed Aspirin 81 mg PO DAILY@0700 09/02/13 04/06/20 Baclofen [Lioresal] 10 mg PO TID@0700,1500,229909/02/13 04/06/20 Digoxin [Lanoxin] 125 mcg PO HS@229909/02/13 04/06/20 Isosorbide Mononitrate [Imdur] 60 mg PO HS@229909/02/13 04/06/20 Ramipril [Altace] 10 mg PO DAILY@182909/02/13 04/06/20 Simvastatin [Zocor] 40 mg PO HS@182909/02/13 04/06/20 Warfarin [Coumadin] 2.5 mg PO SUTH@182909/02/13 04/06/20 Metoprolol Tartrate [Lopressor] 75 mg PO BID@0700,0 03/06/18 04/06/20 Warfarin [Coumadin] 1.25 mg PO MOTUWEFRSA@1830 03/06/18 04/06/20 Gabapentin [Neurontin] 300 mg PO QID 11/26/18 04/06/20 Tamsulosin [Flomax] 0.4 mg PO BID@0700,1830 09/03/19 04/06/20 Previous Rx's Medication Instructions Recorded Acetaminophen Tab [Tylenol Tab] 500 mg PO Q6H PRN #30 tablet 09/04/19 Allergies Allergy/AdvReac Type Severity Reaction Status Date / Time No Known Allergies Allergy Verified 04/06/20 12:45 Review of Systems ROS Statement: Those systems with pertinent positive or pertinent negative responses have been documented in the HPI. ROS Other: All systems not noted in ROS Statement are negative. Past Medical History Past Medical History: Cancer, Myocardial Infarction ([place]), Osteoarthritis ([place]), Prostate Disorder, Thyroid Disorder Additional Past Medical History / Comment(s): MS, hx. prostate cancer 2014-had radiation. Generator change-01/14/2019 Last Myocardial Infarction Date:: unk DATE History of Any Multi-Drug Resistant Organisms: None Reported Past Surgical History: Back Surgery, Heart Catheterization, Hernia Repair, Pacemaker Additional Past Surgical History / Comment(s): PACEMAKER, Generator change-01/14/2019 Past Anesthesia/Blood Transfusion Reactions: No Reported Reaction Type of Cardiac Device: Permanent Pacemaker Device Placement Date:: 05/02/11 Past Psychological History: No Psychological Hx Reported Smoking Status: Never smoker Past Alcohol Use History: Occasional Past Drug Use History: None Reported - Past Family History Mother Family Medical History: No Reported History Sister(s) Family Medical History: Cancer General Exam - General Exam Comments Initial Comments: Constitutional: Alert and oriented, no apparent distress Vitals: Reviewed, please see nursing notes HEENT: No gross trauma identified, trachea midline, no respiratory distress Neck: No tenderness, good range of motion Heart: Regular rate and rhythm without murmur Lungs: Clear to auscultation bilaterally, no wheezing rhonchi or rales Abdomen: No tenderness or peritoneal signs noted, there is some slight distention of the abdomen. Back: No tenderness Neurologic: There is very slight weakness noted to the right upper and right lower extremity which apparently is chronic in nature. Integumentary: No rash or change in pigmentation Psychiatric: Alert and oriented, appropriate mood and affect Limitations: no limitations Course Vital Signs 04/06/20 04/06/20 04/06/20 12:39 14:07 14:53 Temperature 98.6 F Pulse Rate 75 64 71 Respiratory 20 18 16 Rate Blood Pressure 82/53 102/59 112/67 O2 Sat by Pulse 93 L 97 98 Oximetry Medical Decision Making - Medical Decision Making The patient was seen and examined. All diagnostics were reviewed. An EKG was done which shows atrial fibrillation at a rate of 78. Occasional PVC is noted. Pacer waves are identified at times. There is T-wave inversion in the inferior and lateral leads. There is no ST elevation. The QRS duration is 108, QTc interval is 433. An IV is started patient is hydrated. The patient was complaining of some abdominal distention so a acute abdominal series was done and this does not show any acute significant findings. The chest x-ray shows evidence of a possible left lower lobe infiltrate. The patient had a computed tomography scan of the brain due to his fall 1 week ago and being on Coumadin and this does not show any acute process. The laboratory does show slight elevation of the lactic acid as well as elevation of the troponin and BNP. The possibility of a non-ST elevation DE is possible. It is felt as though he benefit from admission to the hospital. He will be covered with some antibiotics to the x-ray findings. The patient denies any chest pain on repeat questioning. He normally sees Dr. Nation from cardiology. Case will be discussed with Dr. Reyes in the near future. - Lab Data Result diagrams: 04/06/20 13:12 04/06/20 13:12 Lab Results 04/06/20 04/06/20 04/06/20 Range/Units 13:12 13:12 13:12 WBC 10.2 (3.8-10.6) k/uL RBC 4.43 (4.30-5.90) m/uL Hgb 13.6 (13.0-17.5) gm/dL Hct 40.8 (39.0-53.0) % MCV 92.2 (80.0-100.0) fL MCH 30.7 (25.0-35.0) pg MCHC 33.3 (31.0-37.0) g/dL RDW 12.5 (11.5-15.5) % Plt Count 143 L (150-450) k/uL MPV 7.8 Neutrophils % 80 % Lymphocytes % 8 % Monocytes % 10 % Eosinophils % 1 % Basophils % 0 % Neutrophils # 8.2 H (1.3-7.7) k/uL Lymphocytes # 0.8 L (1.0-4.8) k/uL Monocytes # 1.0 (0-1.0) k/uL Eosinophils # 0.1 (0-0.7) k/uL Basophils # 0.0 (0-0.2) k/uL PT 20.4 H (9.0-12.0) sec INR 2.1 H (<1.2) APTT 31.5 H (22.0-30.0) sec Sodium 139 (137-145) mmol/L Potassium 4.4 (3.5-5.1) mmol/L Chloride 105 (98-107) mmol/L Carbon Dioxide 27 (22-30) mmol/L Anion Gap 7 mmol/L BUN 28 H (9-20) mg/dL Creatinine 1.42 H (0.66-1.25) mg/dL Est GFR (CKD-EPI)AfAm 55 (>60 ml/min/1.73 sqM) Est GFR (CKD-EPI)NonAf 48 (>60 ml/min/1.73 sqM) Glucose 149 H (74-99) mg/dL Lactic Ac Sepsis Rflx Plasma Lactic Acid Justino (0.7-2.0) mmol/L Calcium 8.7 (8.4-10.2) mg/dL Phosphorus 3.1 (2.5-4.5) mg/dL Magnesium 2.1 (1.6-2.3) mg/dL Total Bilirubin 1.2 (0.2-1.3) mg/dL AST 22 (17-59) U/L ALT 15 (4-49) U/L Alkaline Phosphatase 49 (38-126) U/L Troponin I (0.000-0.034) ng/mL NT-Pro-B Natriuret Pep pg/mL Total Protein 6.2 L (6.3-8.2) g/dL Albumin 3.7 (3.5-5.0) g/dL TSH 1.410 (0.465-4.680) mIU/L Coronavirus (PCR) (Not Detectd) 04/06/20 04/06/20 04/06/20 Range/Units 13:12 13:12 13:12 WBC (3.8-10.6) k/uL RBC (4.30-5.90) m/uL Hgb (13.0-17.5) gm/dL Hct (39.0-53.0) % MCV (80.0-100.0) fL MCH (25.0-35.0) pg MCHC (31.0-37.0) g/dL RDW (11.5-15.5) % Plt Count (150-450) k/uL MPV Neutrophils % % Lymphocytes % % Monocytes % % Eosinophils % % Basophils % % Neutrophils # (1.3-7.7) k/uL Lymphocytes # (1.0-4.8) k/uL Monocytes # (0-1.0) k/uL Eosinophils # (0-0.7) k/uL Basophils # (0-0.2) k/uL PT (9.0-12.0) sec INR (<1.2) APTT (22.0-30.0) sec Sodium (137-145) mmol/L Potassium (3.5-5.1) mmol/L Chloride (98-107) mmol/L Carbon Dioxide (22-30) mmol/L Anion Gap mmol/L BUN (9-20) mg/dL Creatinine (0.66-1.25) mg/dL Est GFR (CKD-EPI)AfAm (>60 ml/min/1.73 sqM) Est GFR (CKD-EPI)NonAf (>60 ml/min/1.73 sqM) Glucose (74-99) mg/dL Lactic Ac Sepsis Rflx Plasma Lactic Acid Justino 2.2 H* (0.7-2.0) mmol/L Calcium (8.4-10.2) mg/dL Phosphorus (2.5-4.5) mg/dL Magnesium (1.6-2.3) mg/dL Total Bilirubin (0.2-1.3) mg/dL AST (17-59) U/L ALT (4-49) U/L Alkaline Phosphatase (38-126) U/L Troponin I 0.061 H* (0.000-0.034) ng/mL NT-Pro-B Natriuret Pep 6230 pg/mL Total Protein (6.3-8.2) g/dL Albumin (3.5-5.0) g/dL TSH (0.465-4.680) mIU/L Coronavirus (PCR) (Not Detectd) 04/06/20 04/06/20 Range/Units 13:12 14:17 WBC (3.8-10.6) k/uL RBC (4.30-5.90) m/uL Hgb (13.0-17.5) gm/dL Hct (39.0-53.0) % MCV (80.0-100.0) fL MCH (25.0-35.0) pg MCHC (31.0-37.0) g/dL RDW (11.5-15.5) % Plt Count (150-450) k/uL MPV Neutrophils % % Lymphocytes % % Monocytes % % Eosinophils % % Basophils % % Neutrophils # (1.3-7.7) k/uL Lymphocytes # (1.0-4.8) k/uL Monocytes # (0-1.0) k/uL Eosinophils # (0-0.7) k/uL Basophils # (0-0.2) k/uL PT (9.0-12.0) sec INR (<1.2) APTT (22.0-30.0) sec Sodium (137-145) mmol/L Potassium (3.5-5.1) mmol/L Chloride (98-107) mmol/L Carbon Dioxide (22-30) mmol/L Anion Gap mmol/L BUN (9-20) mg/dL Creatinine (0.66-1.25) mg/dL Est GFR (CKD-EPI)AfAm (>60 ml/min/1.73 sqM) Est GFR (CKD-EPI)NonAf (>60 ml/min/1.73 sqM) Glucose (74-99) mg/dL Lactic Ac Sepsis Rflx Y Plasma Lactic Acid Justino (0.7-2.0) mmol/L Calcium (8.4-10.2) mg/dL Phosphorus (2.5-4.5) mg/dL Magnesium (1.6-2.3) mg/dL Total Bilirubin (0.2-1.3) mg/dL AST (17-59) U/L ALT (4-49) U/L Alkaline Phosphatase (38-126) U/L Troponin I (0.000-0.034) ng/mL NT-Pro-B Natriuret Pep pg/mL Total Protein (6.3-8.2) g/dL Albumin (3.5-5.0) g/dL TSH (0.465-4.680) mIU/L Coronavirus (PCR) Not Detected (Not Detectd) Disposition Clinical Impression: Multiple sclerosis, Weakness, Head injury, Hypoxia, Acute kidney injury, Non-ST elevation myocardial infarction (NSTEMI), Cardiomegaly, Pneumonia Disposition: ADMITTED IP TO THIS HOSP Condition: Good Referrals: Jeison Reyes MD [Primary Care Provider] - 1-2 days Time of Disposition: 16:28 Decision Date: 04/06/20 Decision Time: 16:29
[2020-04-06 13:49] LABS: Basophils % (A) 0 %; Eosinophils # (A) 0.1 k/uL (0-0.7); Eosinophils % (A) 1 %; HCT 40.8 % (39.0-53.0); HGB 13.6 gm/dL (13.0-17.5); Lymphocytes # (A) 0.8 k/uL (1.0-4.8); Lymphocytes % (A) 8 %; MCH 30.7 pg (25.0-35.0); MCHC 33.3 g/dL (31.0-37.0); MCV 92.2 fL (80.0-100.0); Mean Platelet Volume 7.8; Monocytes % (A) 10 %; Neutrophils # (A) 8.2 k/uL (1.3-7.7); Neutrophils % (A) 80 %; Platelet Count 143 k/uL (150-450); RBC 4.43 m/uL (4.30-5.90); RDW 12.5 % (11.5-15.5); WBC 10.2 k/uL (3.8-10.6)
[2020-04-06 13:57] LABS: INR 2.1 (<1.2); Partial Thromboplastin Time 31.5 sec (22.0-30.0); Prothrombin Time 20.4 sec (9.0-12.0)
--- NOTE | 2020-04-06 14:05 | XR ---
EXAMINATION TYPE: XR abdomen 2V DATE OF EXAM: 04/06/2020 COMPARISON: NONE HISTORY: Weakness TECHNIQUE: One view abdominal series FINDINGS: Scoliosis with hypertrophic and degenerative changes spine. Basilar consolidation. Vascular calcifica tions are noted. Arthropathy of the hips. IMPRESSION: 1. Nonspecific abdomen 2. Left basilar atelectasis or infiltrate.
--- NOTE | 2020-04-06 14:06 | XR ---
EXAMINATION TYPE: XR chest 2V DATE OF EXAM: 04/06/2020 COMPARISON: NONE TECHNIQUE: PA and lateral views submitted. HISTORY: Weakness FINDINGS: The lungs are clear and there is no pneumothorax, pleural effusion, or focal pneumonia. Hyperinflat ion. Cardiac device noted. Heart is enlarged. Hypertrophic and degenerative change of the spine. No o vert failure. IMPRESSION: 1. Cardiomegaly correlate for COPD..
[2020-04-06 14:08] LABS: Albumin 3.7 g/dL (3.5-5.0); Calcium 8.7 mg/dL (8.4-10.2); Magnesium 2.1 mg/dL (1.6-2.3); Phosphorus 3.1 mg/dL (2.5-4.5); Potassium 4.4 mmol/L (3.5-5.1); Total Bilirubin 1.2 mg/dL (0.2-1.3); Total Protein 6.2 g/dL (6.3-8.2)
--- NOTE | 2020-04-06 16:01 | CT ---
EXAMINATION TYPE: CT brain wo con DATE OF EXAM: 04/06/2020 HISTORY: weakness, MS CT DLP: 1060.4 mGycm. Automated Exposure Control for Dose Reduction was Utilized. TECHNIQUE: CT scan of the head is performed without contrast. COMPARISON: CT brain October 31, 2018. FINDINGS: There is no acute intracranial hemorrhage or midline shift identified. There is diffuse v entricular and sulcal prominence consistent with diffuse age-related cerebral atrophy. There is low- attenuation in the periventricular white matter consistent with chronic small vessel ischemic change. Vascular calcification distal internal carotid arteries bilaterally is redemonstrated. Moderate muco laura thickening visualized portion of the small caliber right maxillary sinus otherwise the globes are intact and the visualized sinuses are clear. IMPRESSION: No acute intracranial hemorrhage or midline shift. There is moderate diffuse age-relate d cerebral atrophy and mild chronic small vessel ischemic change redemonstrated. No significant becerra ge from most recent CT.
[2020-04-06] MEDS ORDERED: FUROSEMIDE 10 MG/ML 4 ML VIAL IV STA (16:30)
[2020-04-06] MEDS ORDERED: AZITHROMYCIN 500 MG in SODIUM CHLORIDE 0.9% 250 ML IVPB STA (16:30)
[2020-04-06] MEDS ORDERED: ACETAMINOPHEN TAB 500 MG TAB PO PRN (17:12)
[2020-04-06] MEDS ORDERED: ATORVASTATIN 20 MG TAB PO SCH (18:30)
[2020-04-06] MEDS ORDERED: GABAPENTIN 300 MG CAP PO SCH (18:30)
[2020-04-06] MEDS: NITROGLYCERIN OINT 1 INCH/GM PACKET TOPICAL SCH (18:31)
[2020-04-06] MEDS: lisinopriL 20 MG TAB PO SCH (18:35)
[2020-04-06] MEDS: TAMSULOSIN 0.4 MG CAP.ER.24H PO SCH (18:36)
[2020-04-06] MEDS: METOPROLOL TARTRATE 50 MG TAB PO SCH (18:37)
[2020-04-06] MEDS: WARFARIN 1.25 MG TAB PO SCH (18:44)
[2020-04-06 18:59] LABS: Appearance,Urine Cloudy (Clear); Bacteria,Urine Few /hpf; Bilirubin,Urine Negative (Negative); Blood,Urine Moderate (Negative); Color,Urine Light Yellow; Glucose,Urine (UA) Negative (Negative); Ketones,Urine Negative (Negative); Leukocyte Esterase,Urine Large (Negative); Mucus,Urine Rare /hpf; Nitrite,Urine Negative (Negative); PH, Urine 5.5 (5.0-8.0); Protein,Urine 1+ (Negative); RBC,Urine 116 /hpf (0-5); Specific Gravity,Urine 1.009 (1.001-1.035); Squamous Epithelial Cell,Urine 1 /hpf (0-4); Urobilinogen,Urine <2.0 mg/dL (<2.0); WBC,Urine >182 /hpf (0-5)
[2020-04-06] MEDS: GABAPENTIN 300 MG CAP PO SCH (21:26)
[2020-04-06] MEDS: DIGOXIN 125 MCG TAB PO SCH (21:26)
[2020-04-06] MEDS: BACLOFEN 10 MG TAB PO SCH (21:26)
[2020-04-06] MEDS: FUROSEMIDE 10 MG/ML 2 ML VIAL IV SCH (21:26)
[2020-04-07] MEDS: NITROGLYCERIN OINT 1 INCH/GM PACKET TOPICAL SCH ×2 (02:37→06:12)
[2020-04-07] MEDS: BACLOFEN 10 MG TAB PO SCH ×3 (06:13→22:24)
[2020-04-07] MEDS: TAMSULOSIN 0.4 MG CAP.ER.24H PO SCH ×2 (06:13→17:27)
[2020-04-07] MEDS: METOPROLOL TARTRATE 50 MG TAB PO SCH ×2 (06:13→17:26)
[2020-04-07] MEDS: GABAPENTIN 300 MG CAP PO SCH ×3 (06:13→22:24)
[2020-04-07 08:16] LABS: Basophils % (A) 0 %; Eosinophils # (A) 0.2 k/uL (0-0.7); Eosinophils % (A) 2 %; HCT 41.5 % (39.0-53.0); HGB 13.4 gm/dL (13.0-17.5); Lymphocytes # (A) 0.6 k/uL (1.0-4.8); Lymphocytes % (A) 7 %; MCH 29.3 pg (25.0-35.0); MCHC 32.3 g/dL (31.0-37.0); MCV 90.8 fL (80.0-100.0); Mean Platelet Volume 7.9; Monocytes # (A) 0.9 k/uL (0-1.0); Monocytes % (A) 10 %; Neutrophils # (A) 7.1 k/uL (1.3-7.7); Neutrophils % (A) 79 %; Platelet Count 158 k/uL (150-450); RBC 4.57 m/uL (4.30-5.90); RDW 12.7 % (11.5-15.5); WBC 8.9 k/uL (3.8-10.6)
[2020-04-07 08:28] LABS: INR 2.1 (<1.2)
[2020-04-07 08:29] LABS: Albumin 3.7 g/dL (3.5-5.0); Calcium 8.6 mg/dL (8.4-10.2); Total Bilirubin 1.1 mg/dL (0.2-1.3); Total Protein 6.3 g/dL (6.3-8.2)
[2020-04-07] MEDS: FUROSEMIDE 10 MG/ML 2 ML VIAL IV SCH (08:54)
[2020-04-07] MEDS: ASPIRIN 81 MG PO SCH (08:56)
[2020-04-07] MEDS ORDERED: ASPIRIN 325 MG TAB PO SCH (09:00)
--- NOTE | 2020-04-07 09:44 | P.HPIM ---
History of Present Illness H&P Date: 04/07/20 Chief Complaint: Generalized weakness 79-year-old male admitted to the selective care unit for complaint of generalized weakness. He states that the onset occurred approximately 7 days ago. He has chronic right-sided weakness due to his multiple sclerosis but this is throughout his entire body. Over the last week patient states progressive weakness, patient states normally uses cane for ambulation with progression of weakness using walker. He states over the last week had episodes of chills and sweatiness. Patient denies chest discomfort, shortness of breath nausea, vomiting, diarrhea, or constipation. he states that he fell approximately one week ago, describes the event as unbalance before falling. Review of Systems Constitutional: Reports fatigue Ears, nose, mouth and throat: Reports vertigo Cardiovascular: Reports syncope Musculoskeletal: Reports gait dysfunction, Reports limitation of motion Neurological: Reports balance difficulties, Reports motor disturbance, Reports weakness Past Medical History Past Medical History: Atrial Fibrillation, Cancer, CVA/TIA, Hyperlipidemia, Hypertension, Osteoarthritis (OA), Prostate Disorder, Thyroid Disorder Additional Past Medical History / Comment(s): MS, hx. prostate cancer 2014-had radiation. Generator change-01/14/2019 PACEMAKER ONLY, NO DEFIBRILLATOR Last Myocardial Infarction Date:: unk DATE History of Any Multi-Drug Resistant Organisms: None Reported Past Surgical History: Back Surgery, Heart Catheterization, Hernia Repair, Pacemaker Additional Past Surgical History / Comment(s): PACEMAKER, Generator change- 01/14/2019 Past Anesthesia/Blood Transfusion Reactions: No Reported Reaction Type of Cardiac Device: Permanent Pacemaker Device Placement Date:: 05/02/11 Past Psychological History: No Psychological Hx Reported Smoking Status: Never smoker Past Alcohol Use History: Occasional Additional Past Alcohol Use History / Comment(s): STARTED SMOKING AT AGE 20 quit smoking 1992, smoked 1ppd Past Drug Use History: None Reported - Past Family History Mother Family Medical History: No Reported History Sister(s) Family Medical History: Cancer Medications and Allergies Home Medications and Allergies Comment(s): Medications and ALLERGIES reviewed Home Medications Medication Instructions Recorded Confirmed Type Aspirin 81 mg PO DAILY@0700 09/02/13 04/06/20 History Baclofen [Lioresal] 10 mg PO TID@0700,1500,2300 09/02/13 04/06/20 History Digoxin [Lanoxin] 125 mcg PO HS@2300 09/02/13 04/06/20 History Isosorbide Mononitrate [Imdur] 60 mg PO HS@2300 09/02/13 04/06/20 History Ramipril [Altace] 10 mg PO DAILY@182909/02/13 04/06/20 History Simvastatin [Zocor] 40 mg PO HS@18309/02/13 04/06/20 History Warfarin [Coumadin] 2.5 mg PO SUTH@182909/02/13 04/06/20 History Metoprolol Tartrate [Lopressor] 75 mg PO BID@0700,1830 03/06/18 04/06/20 History Warfarin [Coumadin] 1.25 mg PO MOTUWEFRSA@182903/06/18 04/06/20 History Gabapentin [Neurontin] 300 mg PO QID 11/26/18 04/06/20 History Tamsulosin [Flomax] 0.4 mg PO BID@0700,182909/03/19 04/06/20 History Acetaminophen Tab [Tylenol Tab] 500 mg PO Q6H PRN #30 tablet 09/04/19 04/06/20 Rx Allergies Allergy/AdvReac Type Severity Reaction Status Date / Time No Known Allergies Allergy Verified 04/06/20 12:45 Physical Exam Vitals: Vital Signs Temp Pulse Pulse Resp BP BP Pulse Ox 04/07/20 08:00 75 18 128/74 95 04/07/20 03:31 98.9 F 81 17 143/77 99 04/07/20 02:00 81 17 04/06/20 23:23 97.9 F 70 19 135/74 97 04/06/20 19:41 98.3 F 72 18 116/65 95 04/06/20 18:02 97.9 F 84 18 139/74 98 04/06/20 17:14 98.3 F 04/06/20 17:02 82 18 123/78 96 04/06/20 16:00 71 20 128/70 98 04/06/20 14:53 71 16 112/67 98 04/06/20 14:07 64 18 102/59 97 04/06/20 12:39 98.6 F 75 20 82/53 93 L Intake and Output 04/06/20 04/07/20 04/07/20 22:59 06:59 14:59 Intake Total 975 375 Output Total 600 1600 Balance 375 -1225 Intake: Intake, IV Titration 850 375 Amount Azithromycin 500 mg In 250 Sodium Chloride 0.9% 250 ml @ 250 mls/hr IVPB ONCE STA Rx#:[id number] Sodium Chloride 0.9% 1, 375 000 ml @ 75 mls/hr IV . [id number] STA Rx#:[id number] Sodium Chloride 0.9% 500 500 ml 500 ml @ 999 mls/hr IV .Q31M STA Rx#:[id number] cefTRIAXone 1 gm In 100 Sodium Chloride 0.9% 50 ml @ 100 mls/hr IVPB ONCE STA Rx#:[id number] Oral 125 Output: Urine 600 1600 Other: Voiding Method Bedside Commode Bedside Commode # Voids 2 Weight 77.111 kg 78.4 kg - Constitutional General appearance: mild distress - EENT Eyes: EOMI, PERRLA Ears: bilateral: normal - Neck Carotids: bilateral: upstroke normal Thyroid: bilateral: normal size - Respiratory Respiratory: bilateral: CTA (Anterior lung talamantes), diminished (History lung talamantes) - Cardiovascular Atrial fibrillation Heart rate: 74 Rhythm: irregularly irregular Heart sounds: normal: S1, S2 radial pulse Peripheral Pulses: bilateral: Normal dorsalis pedis Peripheral Pulses: bilateral: Normal - Gastrointestinal General gastrointestinal: normal bowel sounds - Integumentary Integumentary: decreased turgor, pale - Neurologic Neurologic: CNII-XII intact - Musculoskeletal Musculoskeletal: right sided weakness - Psychiatric Psychiatric: A&O x's 3, appropriate affect, intact judgment & insight Results CBC & Chem 7: 04/07/20 06:56 04/07/20 06:56 Labs: Abnormal Lab Results - Last 24 Hours (Table) 04/06/20 04/06/20 04/06/20 Range/Units 13:04 13:12 13:12 Plt Count 143 L (150-450) k/uL Neutrophils # 8.2 H (1.3-7.7) k/uL Lymphocytes # 0.8 L (1.0-4.8) k/uL PT 20.4 H (9.0-12.0) sec INR 2.1 H (<1.2) APTT 31.5 H (22.0-30.0) sec Carbon Dioxide (22-30) mmol/L BUN (9-20) mg/dL Creatinine (0.66-1.25) mg/dL Glucose (74-99) mg/dL Plasma Lactic Acid Justino (0.7-2.0) mmol/L Troponin I (0.000-0.034) ng/mL Total Protein (6.3-8.2) g/dL HDL Cholesterol (40-60) mg/dL Urine Protein 1+ H (Negative) Urine Blood Moderate H (Negative) Ur Leukocyte Esterase Large H (Negative) Urine RBC 116 H (0-5) /hpf Urine WBC >182 H (0-5) /hpf Urine Bacteria Few H (None) /hpf Urine Mucus Rare H (None) /hpf 04/06/20 04/06/20 04/06/20 Range/Units 13:12 13:12 13:12 Plt Count (150-450) k/uL Neutrophils # (1.3-7.7) k/uL Lymphocytes # (1.0-4.8) k/uL PT (9.0-12.0) sec INR (<1.2) APTT (22.0-30.0) sec Carbon Dioxide (22-30) mmol/L BUN 28 H (9-20) mg/dL Creatinine 1.42 H (0.66-1.25) mg/dL Glucose 149 H (74-99) mg/dL Plasma Lactic Acid Justino 2.2 H* (0.7-2.0) mmol/L Troponin I 0.061 H* (0.000-0.034) ng/mL Total Protein 6.2 L (6.3-8.2) g/dL HDL Cholesterol (40-60) mg/dL Urine Protein (Negative) Urine Blood (Negative) Ur Leukocyte Esterase (Negative) Urine RBC (0-5) /hpf Urine WBC (0-5) /hpf Urine Bacteria (None) /hpf Urine Mucus (None) /hpf 04/06/20 04/06/20 04/07/20 Range/Units 16:41 19:39 06:56 Plt Count (150-450) k/uL Neutrophils # (1.3-7.7) k/uL Lymphocytes # 0.6 L (1.0-4.8) k/uL PT (9.0-12.0) sec INR (<1.2) APTT (22.0-30.0) sec Carbon Dioxide (22-30) mmol/L BUN (9-20) mg/dL Creatinine (0.66-1.25) mg/dL Glucose (74-99) mg/dL Plasma Lactic Acid Justino (0.7-2.0) mmol/L Troponin I 0.043 H* 0.043 H* (0.000-0.034) ng/mL Total Protein (6.3-8.2) g/dL HDL Cholesterol (40-60) mg/dL Urine Protein (Negative) Urine Blood (Negative) Ur Leukocyte Esterase (Negative) Urine RBC (0-5) /hpf Urine WBC (0-5) /hpf Urine Bacteria (None) /hpf Urine Mucus (None) /hpf 04/07/20 04/07/20 Range/Units 06:56 06:56 Plt Count (150-450) k/uL Neutrophils # (1.3-7.7) k/uL Lymphocytes # (1.0-4.8) k/uL PT 20.0 H (9.0-12.0) sec INR 2.1 H (<1.2) APTT (22.0-30.0) sec Carbon Dioxide 34 H (22-30) mmol/L BUN 28 H (9-20) mg/dL Creatinine 1.41 H (0.66-1.25) mg/dL Glucose 109 H (74-99) mg/dL Plasma Lactic Acid Justino (0.7-2.0) mmol/L Troponin I (0.000-0.034) ng/mL Total Protein (6.3-8.2) g/dL HDL Cholesterol 31 L (40-60) mg/dL Urine Protein (Negative) Urine Blood (Negative) Ur Leukocyte Esterase (Negative) Urine RBC (0-5) /hpf Urine WBC (0-5) /hpf Urine Bacteria (None) /hpf Urine Mucus (None) /hpf Microbiology - Last 24 Hours (Table) 04/06/20 13:04 Urine Culture - Preliminary Urine,Clean Catch Chest x-ray: report reviewed Abdominal x-ray: report reviewed CT Scan - head: report reviewed Thrombosis Risk Factor Assmnt - Choose All That Apply Any of the Below Risk Factors Present?: Yes Each Risk Factor Represents 3 Points: Age 75 years or older Thrombosis Risk Factor Assessment Total Risk Factor Score: 3 Thrombosis Risk Factor Assessment Level: Moderate Risk Assessment and Plan Assessment: Non-STEMI Pneumonia Acute kidney injury Mild hypoxia Weakness Multiple sclerosis History of myocardial infarction Osteoarthritis Hypothyroidism Hyperlipidemia Atrial fibrillation Plan: Non-STEMIconsultation with cardiology for recommendations and treatment plan Near syncopal episode-consultation with cardiology for recommendations and treatment plan Pneumoniacontinue Zithromax and Rocephin Acute kidney injury consultation with nephrology Generalized weaknessconsultation with PT OT Multiple sclerosis Time with Patient: Greater than 30
--- NOTE | 2020-04-07 10:00 | ECHOF ---
Referral Reason:weakness, hypoxia MEASUREMENTS -------- HEIGHT: 182.9 cm WEIGHT: 78.0 kg BP: RVIDd: 3.7 cm (< 3.3) IVSd: 1.3 cm (0.6 - 1.1) LVIDd: 4.7 cm (3.9 - 5.3) LVPWd: 1.4 cm (0.6 - 1.1) IVSs: 1.8 cm LVIDs: 4.2 cm LVPWs: 1.3 cm LAESV Index (A-L): 63.61 ml/m Ao Diam: 3.7 cm (2.0 - 3.7) AV Cusp: 1.3 cm (1.5 - 2.6) LA Diam: 5.3 cm (2.7 - 3.8) MV EXCURSION: 17.961 mm (> 18.000) MV EF SLOPE: 39 mm/s (70 - 150) EPSS: 0.3 cm AV maxP.42 mmHg AV meanP.69 mmHg RAP: 5.00 mmHg RVSP: 39.29 mmHg FINDINGS -------- Paced rhythm. This was a technically good study. The left ventricular size is normal. There is mild concentric left ventricular hypertrophy. Overa ll left ventricular systolic function is moderately impaired with, an EF between 35 - 40 %. Basal i nferior LV wall motion is hypokinetic. Basal septal hypokinesis The right ventricle is normal in size. LA is severely dilated >40 ml/m2 The right atrial size is normal. There is mild aortic stenosis present. Mild mitral annular calcification present. Mild mitral regurgitation is present. Mild tricuspid regurgitation present. There is mild pulmonary hypertension. Trace/mild (physiologic) pulmonic regurgitation. The aortic root size is normal. There is no pericardial effusion. CONCLUSIONS -------- 1. The left ventricular size is normal. 2. Overall left ventricular systolic function is moderately impaired with, an EF between 35 - 40 %. 3. Basal inferior LV wall motion is hypokinetic. 4. Basal septal hypokinesis 5. The right ventricle is normal in size. 6. LA is severely dilated >40 ml/m2 7. The right atrial size is normal. 8. There is mild aortic stenosis present. 9. Mild mitral annular calcification present. 10. Mild mitral regurgitation is present. 11. Mild tricuspid regurgitation present. 12. There is mild pulmonary hypertension. 13. Trace/mild (physiologic) pulmonic regurgitation. 14. The aortic root size is normal. 15. There is no pericardial effusion. PLASMA SPECIALIST: Hannah Donovan RDCS
[2020-04-07 10:33] LABS: Digoxin 0.6 ng/mL
--- NOTE | 2020-04-07 15:03 | P.CRDCN ---
History of Present Illness Consult date: 04/07/20 History of present illness: CHIEF COMPLAINT: Abnormal troponins HISTORY OF PRESENT ILLNESS: This is a 79-year old male with a past medical history significant for multiple sclerosis, chronic atrial fibrillation, permanent pacemaker insertion, hypertension, hyperlipidemia, and coronary artery disease. Patient follows in the office with Dr. Nation. We have been asked to see the patient in consultation for abnormal troponins. Patient presented to the hospital with a chief complaint of weakness for the past week. He also reports falling last week. The patient was placed on antibiotics for possible pneumonia urinary tract infection. The patient denies any chest pain. He denies shortness of breath. Patient underwent a Lexiscan in August 2019 which was negative for reversible ischemia. Patient had a cardiac catheterization in 2013 which revealed a known RCA occlusion and medical management was recommended. DIAGNOSTICS: EKG reveals atrial fibrillation with controlled ventricular rate. Patient has inferior and lateral T-wave inversions which are similar in appearance to his EKG in 2013. Chest xray cardiomegaly. COPD. Laboratory data: WBC 8.9. Hemoglobin 13.4. Platelet count 158. INR 2.1. Sodium 140. Potassium 4.0. B UN 28. Creatinine 1.41. Lactic acid 2.2. Repeat 1.5. Troponin 0.061. 0.043. 0.043. Current home cardiac medications include Zocor 40 mg daily, digoxin 125mcg da rayne, Coumadin, metoprolol 75 mg twice a day, Imdur 60 mg daily, and aspirin 81 mg daily REVIEW OF SYSTEMS: At the time of my exam: CONSTITUTIONAL: Denies fever or chills. HEENT: Denies blurred vision, vision changes, or eye pain. Denies hemoptysis CARDIOVASCULAR: Denies chest pain, orthopnea, PND or palpitations RESPIRATORY: No shortness of breath. GASTROINTESTINAL: Denies abdominal pain. Denies nausea or vomiting. HEMATOLOGIC: Denies bleeding disorders. GENITOURINARY: Denies any blood in urine. SKIN: Denies pruitis. Denies rash. PHYSICAL EXAM: VITAL SIGNS: Reviewed. GENERAL: Well-developed in no acute distress. HEENT: Head is normocephalic. Pupils are equal, round. Sclerae anicteric. Mucous membranes of the mouth are moist. Neck supple. No JVD or thyromegaly. LUNGS: Respirations even and unlabored. Lungs essentially clear to auscultation bilaterally. HEART: Irregular rate and rhythm. S1 and S2 heard. ABDOMEN: Soft. Nondistended. Nontender. EXTREMITIES: Normal range of motion. No clubbing or cyanosis. Peripheral pulses intact. No lower extremity edema NEUROLOGIC: Awake and alert. Oriented x 3. ASSESSMENT: Weakness x 8 days Possible pneumonia Abnormal UA, possible urinary tract infection Elevated lactic acid Chronic persistent atrial fibrillation History of permanent pacemaker insertion Coronary artery disease with known RCA occlusion Abnormal troponins, suspect secondary to infectious process Multiple sclerosis Hypertension Hyperlipidemia PLAN: Resume home cardiac medications Continue Coumadin for anticoagulation Increase metoprolol to 100 mg twice a day Increase Lipitor to 40 mg daily Obtain 2-D echo to assess cardiac structure and function Further recommendations pending patient's course Nurse practitioner note has been reviewed by physician. Signing provider agrees with the documented findings, assessment, and plan of care. Past Medical History Past Medical History: Atrial Fibrillation, Cancer, CVA/TIA, Hyperlipidemia, Hypertension, Osteoarthritis (OA), Prostate Disorder, Thyroid Disorder Additional Past Medical History / Comment(s): MS, hx. prostate cancer 2015-had r adiation. Generator change-01/14/2019 PACEMAKER ONLY, NO DEFIBRILLATOR Last Myocardial Infarction Date:: unk DATE History of Any Multi-Drug Resistant Organisms: None Reported Past Surgical History: Back Surgery, Heart Catheterization, Hernia Repair, Pacemaker Additional Past Surgical History / Comment(s): PACEMAKER, Generator change- 01/14/2019 Past Anesthesia/Blood Transfusion Reactions: No Reported Reaction Type of Cardiac Device: Permanent Pacemaker Device Placement Date:: 05/02/11 Past Psychological History: No Psychological Hx Reported Smoking Status: Never smoker Past Alcohol Use History: Occasional Additional Past Alcohol Use History / Comment(s): STARTED SMOKING AT AGE 20 quit smoking 1992, smoked 1ppd Past Drug Use History: None Reported - Past Family History Mother Family Medical History: No Reported History Sister(s) Family Medical History: Cancer Medications and Allergies Home Medications Medication Instructions Recorded Confirmed Type Aspirin 81 mg PO DAILY@0700 09/02/13 04/06/20 History Baclofen [Lioresal] 10 mg PO TID@0700,1500,2300 09/02/13 04/06/20 History Digoxin [Lanoxin] 125 mcg PO HS@2300 09/02/13 04/06/20 History Isosorbide Mononitrate [Imdur] 60 mg PO HS@23009/02/13 04/06/20 History Ramipril [Altace] 10 mg PO DAILY@182909/02/13 04/06/20 History Simvastatin [Zocor] 40 mg PO HS@182909/02/13 04/06/20 History Warfarin [Coumadin] 2.5 mg PO SUTH@182909/02/13 04/06/20 History Metoprolol Tartrate [Lopressor] 75 mg PO BID@0700,182903/06/18 04/06/20 History Warfarin [Coumadin] 1.25 mg PO MOTUWEFRSA@182903/06/18 04/06/20 History Gabapentin [Neurontin] 300 mg PO QID 11/26/18 04/06/20 History Tamsulosin [Flomax] 0.4 mg PO BID@0700,182909/03/19 04/06/20 History Acetaminophen Tab [Tylenol Tab] 500 mg PO Q6H PRN #30 tablet 09/04/19 04/06/20 Rx Allergies Allergy/AdvReac Type Severity Reaction Status Date / Time No Known Allergies Allergy Verified 04/06/20 12:45 Physical Exam Vitals: Vital Signs Temp Pulse Pulse Resp BP BP Pulse Ox 04/07/20 11:58 96.4 F L 66 18 96/53 94 L 04/07/20 08:00 75 18 128/74 95 04/07/20 03:31 98.9 F 81 17 143/77 99 04/07/20 02:00 81 17 04/06/20 23:23 97.9 F 70 19 135/74 97 04/06/20 19:41 98.3 F 72 18 116/65 95 04/06/20 18:02 97.9 F 84 18 139/74 98 04/06/20 17:14 98.3 F 04/06/20 17:02 82 18 123/78 96 04/06/20 16:00 71 20 128/70 98 04/06/20 14:53 71 16 112/67 98 04/06/20 14:07 64 18 102/59 97 Intake and Output 04/06/20 04/07/20 04/07/20 22:59 06:59 14:59 Intake Total 975 375 598 Output Total 600 1600 900 Balance 375 -1225 -302 Intake: Intake, IV Titration 850 375 Amount Azithromycin 500 mg In 250 Sodium Chloride 0.9% 250 ml @ 250 mls/hr IVPB ONCE STA Rx#:[id number] Sodium Chloride 0.9% 1, 375 000 ml @ 75 mls/hr IV . [id number] STA Rx#:[id number] Sodium Chloride 0.9% 500 500 ml 500 ml @ 999 mls/hr IV .Q31M STA Rx#:[id number] cefTRIAXone 1 gm In 100 Sodium Chloride 0.9% 50 ml @ 100 mls/hr IVPB ONCE STA Rx#:[id number] Oral 125 598 Output: Urine 600 1600 900 Other: Voiding Method Bedside Commode Bedside Commode Bedside Commode # Voids 2 Weight 77.111 kg 78.4 kg Results 04/07/20 06:56 04/07/20 06:56 Cardiac Enzymes 04/06/20 04/06/20 04/06/20 Range/Units 13:12 13:12 16:41 AST 22 (17-59) U/L Troponin I 0.061 H* 0.043 H* (0.000-0.034) ng/mL 04/06/20 04/07/20 Range/Units 19:39 06:56 AST 24 (17-59) U/L Troponin I 0.043 H* (0.000-0.034) ng/mL Coagulation 04/06/20 04/07/20 Range/Units 13:12 06:56 PT 20.4 H 20.0 H (9.0-12.0) sec APTT 31.5 H (22.0-30.0) sec Lipids 04/07/20 Range/Units 06:56 Triglycerides 65 (<150) mg/dL Cholesterol 114 (<200) mg/dL HDL Cholesterol 31 L (40-60) mg/dL CBC 04/06/20 04/07/20 Range/Units 13:12 06:56 WBC 10.2 8.9 (3.8-10.6) k/uL RBC 4.43 4.57 (4.30-5.90) m/uL Hgb 13.6 13.4 (13.0-17.5) gm/dL Hct 40.8 41.5 (39.0-53.0) % Plt Count 143 L 158 (150-450) k/uL Comprehensive Metabolic Panel 04/06/20 04/07/20 Range/Units 13:12 06:56 Sodium 139 140 (137-145) mmol/L Potassium 4.4 4.0 (3.5-5.1) mmol/L Chloride 105 100 (98-107) mmol/L Carbon Dioxide 27 34 H (22-30) mmol/L BUN 28 H 28 H (9-20) mg/dL Creatinine 1.42 H 1.41 H (0.66-1.25) mg/dL Glucose 149 H 109 H (74-99) mg/dL Calcium 8.7 8.6 (8.4-10.2) mg/dL AST 22 24 (17-59) U/L ALT 15 15 (4-49) U/L Alkaline Phosphatase 49 50 (38-126) U/L Total Protein 6.2 L 6.3 (6.3-8.2) g/dL Albumin 3.7 3.7 (3.5-5.0) g/dL Current Medications Generic Name Dose Route Start Last Admin Trade Name Freq PRN Reason Stop Dose Admin Acetaminophen 500 mg 04/06/20 17:12 Acetaminophen Tab 500 Mg Tab PO Q6H PRN Pain Aspirin 81 mg 04/07/20 09:00 04/07/20 08:56 Aspirin 81 Mg PO 81 mg DAILY [facility] Administration Atorvastatin Calcium 40 mg 04/07/20 18:30 Atorvastatin 40 Mg Tab PO HS@1830 [facility] Baclofen 10 mg 04/06/20 23:00 04/07/20 06:13 Baclofen 10 Mg Tab PO 10 mg TID@0700,1500,2300 [facility] Administration Digoxin 125 mcg 04/06/20 23:00 04/06/20 21:26 Digoxin 125 Mcg Tab PO 125 mcg HS@2300 [facility] Administration Gabapentin 300 mg 04/07/20 07:00 04/07/20 06:13 Gabapentin 300 Mg Cap PO 300 mg 0700,1500 [facility] Administration Gabapentin 600 mg 04/06/20 23:00 04/06/20 21:26 Gabapentin 300 Mg Cap PO 600 mg DAILY@2300 [facility] Administration Ceftriaxone Sodium 1 gm/ 50 mls @ 100 mls/hr 04/07/20 09:00 04/07/20 09:56 Sodium Chloride IVPB 100 mls/hr DAILY [facility] Administration Azithromycin 500 mg/ Sodium 250 mls @ 250 mls/hr 04/07/20 16:00 Chloride IVPB DAILY@1600 [facility] Lisinopril 40 mg 04/06/20 18:30 04/06/20 18:35 Lisinopril 20 Mg Tab PO Not Given DAILY@1830 [facility] Metoprolol Tartrate 100 mg 04/07/20 18:30 Metoprolol Tartrate 50 Mg Tab PO BID@0700,1830 [facility] Miscellaneous Information 0 each 04/06/20 18:03 Warfarin Per Pharmacy MISCELLANE DIRECTED PRN PER PHARMACY PROTOCOL Tamsulosin HCl 0.4 mg 04/06/20 18:30 04/07/20 06:13 Tamsulosin 0.4 Mg Cap.Er.24h PO 0.4 mg BID@0700,1830 [facility] Administration Warfarin Sodium 1.25 mg 04/06/20 18:30 04/06/20 18:44 Warfarin 1.25 Mg Tab PO 1.25 mg MOTUWEFRSA@1830 [facility] Administration Protocol Warfarin Sodium 2.5 mg 04/08/20 18:30 Warfarin 2.5 Mg Tab PO SUTH@1830 [facility] Protocol Intake and Output 04/06/20 04/07/20 04/07/20 22:59 06:59 14:59 Intake Total 975 375 598 Output Total 600 1600 900 Balance 132 -1233 -081 Intake: Intake, IV Titration 850 375 Amount Azithromycin 500 mg In 250 Sodium Chloride 0.9% 250 ml @ 250 mls/hr IVPB ONCE STA Rx#:[id number] Sodium Chloride 0.9% 1, 375 000 ml @ 75 mls/hr IV . [id number] STA Rx#:[id number] Sodium Chloride 0.9% 500 500 ml 500 ml @ 999 mls/hr IV .Q31M STA Rx#:[id number] cefTRIAXone 1 gm In 100 Sodium Chloride 0.9% 50 ml @ 100 mls/hr IVPB ONCE STA Rx#:[id number] Oral 125 598 Output: Urine 600 1600 900 Other: Voiding Method Bedside Commode Bedside Commode Bedside Commode # Voids 2 Weight 77.111 kg 78.4 kg 04/07/20 06:56 04/07/20 06:56
[2020-04-07] MEDS ORDERED: AZITHROMYCIN 500 MG in SODIUM CHLORIDE 0.9% 250 ML IVPB SCH (16:00)
[2020-04-07] MEDS: WARFARIN 1.25 MG TAB PO SCH (17:25)
[2020-04-07] MEDS: lisinopriL 20 MG TAB PO SCH (17:26)
[2020-04-07] MEDS ORDERED: ATORVASTATIN 40 MG TAB PO SCH (18:30)
[2020-04-07] MEDS: DIGOXIN 125 MCG TAB PO SCH (22:24)
[2020-04-07] MEDS ORDERED: ISOSORBIDE MONONITRATE ER 60 MG TAB.ER.24H PO SCH (23:00)
[2020-04-08 05:52] LABS: Basophils % (A) 0 %; Eosinophils # (A) 0.2 k/uL (0-0.7); Eosinophils % (A) 2 %; HCT 42.3 % (39.0-53.0); HGB 13.8 gm/dL (13.0-17.5); Lymphocytes % (A) 11 %; MCH 30.4 pg (25.0-35.0); MCHC 32.7 g/dL (31.0-37.0); Mean Platelet Volume 7.2; Monocytes % (A) 11 %; Neutrophils # (A) 6.5 k/uL (1.3-7.7); Neutrophils % (A) 74 %; Platelet Count 177 k/uL (150-450); RBC 4.55 m/uL (4.30-5.90); RDW 12.4 % (11.5-15.5); WBC 8.8 k/uL (3.8-10.6)
[2020-04-08 06:01] LABS: Albumin 3.8 g/dL (3.5-5.0); Calcium 8.9 mg/dL (8.4-10.2); Magnesium 2.1 mg/dL (1.6-2.3); Potassium 4.6 mmol/L (3.5-5.1); Total Protein 6.5 g/dL (6.3-8.2)
[2020-04-08 06:02] LABS: INR 2.3 (<1.2); Prothrombin Time 22.5 sec (9.0-12.0)
[2020-04-08] MEDS: METOPROLOL TARTRATE 50 MG TAB PO SCH (06:38)
[2020-04-08] MEDS: BACLOFEN 10 MG TAB PO SCH ×2 (06:39→16:19)
[2020-04-08] MEDS: GABAPENTIN 300 MG CAP PO SCH (06:39)
[2020-04-08] MEDS: TAMSULOSIN 0.4 MG CAP.ER.24H PO SCH (06:39)
[2020-04-08] MEDS: ASPIRIN 81 MG PO SCH (08:43)
[2020-04-08 08:50] VITALS: RESP 16
--- NOTE | 2020-04-08 09:19 | P.PN ---
Subjective Progress Note Date: 04/08/20 Principal diagnosis: Non-STEMI Pneumonia Acute kidney injury Mild hypoxia Weakness Multiple sclerosis History of myocardial infarction Osteoarthritis Hypothyroidism Hyperlipidemia Atrial fibrillation 79-year-old male evaluated this a.m., patient resting comfortably in bed patient denies chest pain, shortness of breath, fever, and chills. Patient continued complaint of worsening right-sided weakness. Patient evaluated by cardiology with serial troponins and echocardiogram. Consultation with neurologyfor multiple sclerosispossible exacerbation Objective - Vital Signs Vital signs: Vital Signs Temp 97.6 F 04/08/20 08:50 Pulse 68 04/08/20 08:50 Resp 16 04/08/20 08:50 BP 91/54 04/08/20 08:50 Pulse Ox 95 04/08/20 08:50 Intake & Output 04/07/20 04/08/20 04/08/20 18:59 06:59 18:59 Intake Total 843 222 Output Total 2250 400 Balance -1407 -400 222 Weight 78.3 kg Intake: Oral 843 222 Output: Urine 2250 400 Other: Voiding Method Bedside Commode Bedside Commode - Constitutional General appearance: Present: mild distress - EENT Eyes: Present: EOMI, PERRLA Ears: bilateral: normal - Neck Neck: Present: normal ROM Carotids: bilateral: upstroke normal Thyroid: bilateral: normal size - Respiratory Respiratory: bilateral: diminished (Posterior basis) - Cardiovascular Details: Atrial fibrillation Heart rate: 68 Rhythm: irregularly irregular Heart sounds: normal: S1, S2 - Peripheral pulses radial pulse Peripheral Pulses: bilateral: Normal dorsalis pedis Peripheral Pulses: bilateral: Normal - Gastrointestinal General gastrointestinal: Present: normal bowel sounds - Integumentary Integumentary: Present: normal - Neurologic Neurologic: Present: CNII-XII intact - Musculoskeletal Musculoskeletal: Present: right sided weakness - Psychiatric Psychiatric: Present: A&O x's 3, appropriate affect, intact judgment & insight - Allied health notes Allied health notes reviewed: nursing - Labs CBC & Chem 7: 04/08/20 05:30 04/08/20 05:30 Labs: Abnormal Lab Results - Last 24 Hours (Table) 04/08/20 04/08/20 Range/Units 05:30 05:30 PT 22.5 H (9.0-12.0) sec INR 2.3 H (<1.2) Carbon Dioxide 35 H (22-30) mmol/L BUN 34 H (9-20) mg/dL Creatinine 1.47 H (0.66-1.25) mg/dL Glucose 117 H (74-99) mg/dL Microbiology - Last 24 Hours (Table) 04/06/20 13:12 Blood Culture - Preliminary Blood No Growth after 24 hours - Imaging and Cardiology Chest x-ray: report reviewed Echocardiogram reviewed Assessment and Plan Assessment: Non-STEMI Pneumonia Acute kidney injury Mild hypoxia Weakness Multiple sclerosis History of myocardial infarction Osteoarthritis Hypothyroidism Hyperlipidemia Atrial fibrillation Plan: Non-STEMIconsultation with cardiology for recommendations and treatment plan Near syncopal episode-consultation with cardiology for recommendations and treatment plan Pneumoniacontinue Zithromax and Rocephin Acute kidney injury consultation with nephrology Generalized weaknessconsultation with PT OT Multiple sclerosis-consultation with neurology for possible exacerbation of MS Time with Patient: Greater than 30
--- NOTE | 2020-04-08 09:33 | XR ---
EXAMINATION TYPE: XR chest 2V DATE OF EXAM: 04/08/2020 COMPARISON: 04/06/2020 TECHNIQUE: PA and lateral views submitted. HISTORY: Cough FINDINGS: The lungs are clear and there is no pneumothorax, pleural effusion, or focal pneumonia. Heart is en larged and there is hyperinflation compatible COPD. Atherosclerotic change aorta. Cardiac device note d. Hypertrophic change of the spine. IMPRESSION: 1. No acute process. 2 cardiomegaly and findings compatible with COPD
[2020-04-08] MEDS ORDERED: CLOPIDOGREL 75 MG TAB PO SCH (12:15)
--- NOTE | 2020-04-08 12:51 | P.CNNES ---
History of Present Illness Consult date: 04/08/20 Requesting physician: Primitivo Leroy Reason for Consult: MS exacerbation History of Present Illness: Patient is a 79-year-old male came to the hospital on 04/06/2020 at 12:30 PM for generalized weakness. The symptoms started last Sunday on 03/30/2020. He has chronic right-sided weakness due to his multiple sclerosis but this weakness was more generalized. Denies any new focal symptoms. He states it took him 45 m inutes to get off the toilet the day before admission. He was also having difficulty getting off the recliner. He had no energy. Denies any focal symptoms. Patient states that all the symptoms came very sad and on 03/30/2020. CT head showed no acute internal hemorrhage or midline shift. There is moderate diffuse age-related cerebral atrophy and mild chronic small vessel ischemic change redemonstrated. No changes from most recent CT. Chest x-ray showed cardiomegaly, correlate for COPD. 2-D echo showed normal left-ventricular size, left-ventricular systolic function is moderately impaired with EF is 35-40%. Basal inferior left-ventricular wall motion is hypokinetic. Basal septal hyp okinesis. Left atrium is severely dilated. The right atrial size is normal. Mild aortic stenosis. EKG shows atrial fibrillation with occasional been triggered paced complexes, left axis deviation, incomplete right bundle branch block. Patient's blood tests shows normal CBC, PTT is 20.0, INR 2.1, electrolytes are normal, BUN 28, creatinine 1.41, which is gone up to 34/1.47. Troponin is borderline elevated 0.43, total cholesterol 114, LDL 70, HDL 31 and triglycerides 65. Corea virus testing negative. TSH normal 1.41. Previous blood tests shows negative Sjogren's antibodies, Andrews antibody, CORAL in 2013. Urine cultures are negative. UA did show Patient is currently on warfarin, aspirin 81 mg and simvastatin 40 mg. Patient also on baclofen 10 mg 3 times a day. Patient has history of multiple sclerosis diagnosed 20 years ago. He follows up with Dr. Peters. Patient states that he has previously tried Avonex, Copaxone, most recently he has tried Ocrevus, and has received 2 infusions so far, the last one was in June 2018. He believes infusions made him further worse before he stopped taking it. At present he is not on any disease modifying agent, only baclofen and Neurontin. Denies any family history of MS. Patient at present lives with his . Patient has chronic weakness of the right leg, which he believes is from MS. He still walks about 30-40 minutes, 5-6 times a week. Usually uses a brace in the right leg with an AFO, and a cane to help him walk. Patient also has a pacemaker, atrial fibrillation for which he is on anticoagulation. Patient has history of lumbar surgery in the past as well. Patient smoked 1 pack per day for 30 years, quit 30 years ago. He drinks beer or wine occasionally. Review of Systems Positive for abdominal bloating, intermittent sweating. Denies shortness of breath or chest pain. Denies loss of taste or loss of smell. Denies nausea vomiting diarrhea or constipation. No loss of consciousness. Patient has mild back pain but no radicular symptoms. Patient has chronic right leg weakness. The patient complains of generalized fatigue and weakness. Past Medical History Past Medical History: Atrial Fibrillation, Cancer, CVA/TIA, Hyperlipidemia, H ypertension, Osteoarthritis (OA), Prostate Disorder, Thyroid Disorder Additional Past Medical History / Comment(s): MS, hx. prostate cancer 2014-had radiation. Generator change-01/14/2019 PACEMAKER ONLY, NO DEFIBRILLATOR Last Myocardial Infarction Date:: unk DATE History of Any Multi-Drug Resistant Organisms: None Reported Past Surgical History: Back Surgery, Heart Catheterization, Hernia Repair, Pacemaker Additional Past Surgical History / Comment(s): PACEMAKER, Generator change- 01/14/2019 Past Anesthesia/Blood Transfusion Reactions: No Reported Reaction Type of Cardiac Device: Permanent Pacemaker Device Placement Date:: 05/02/11 Past Psychological History: No Psychological Hx Reported Smoking Status: Never smoker Past Alcohol Use History: Occasional Additional Past Alcohol Use History / Comment(s): STARTED SMOKING AT AGE 20 quit smoking 1992, smoked 1ppd Past Drug Use History: None Reported - Past Family History Mother Family Medical History: No Reported History Sister(s) Family Medical History: Cancer Medications and Allergies Home Medications Medication Instructions Recorded Confirmed Type Aspirin 81 mg PO DAILY@0700 09/02/13 04/06/20 History Baclofen [Lioresal] 10 mg PO TID@0700,1500,2300 09/02/13 04/06/20 History Digoxin [Lanoxin] 125 mcg PO HS@229909/02/13 04/06/20 History Isosorbide Mononitrate [Imdur] 60 mg PO HS@229909/02/13 04/06/20 History Ramipril [Altace] 10 mg PO DAILY@182909/02/13 04/06/20 History Simvastatin [Zocor] 40 mg PO HS@182909/02/13 04/06/20 History Warfarin [Coumadin] 2.5 mg PO SUTH@182909/02/13 04/06/20 History Metoprolol Tartrate [Lopressor] 75 mg PO BID@0700,182903/06/18 04/06/20 History Warfarin [Coumadin] 1.25 mg PO MOTUWEFRSA@182903/06/18 04/06/20 History Gabapentin [Neurontin] 300 mg PO QID 11/26/18 04/06/20 History Tamsulosin [Flomax] 0.4 mg PO BID@0700,182909/03/19 04/06/20 History Acetaminophen Tab [Tylenol Tab] 500 mg PO Q6H PRN #30 tablet 09/04/19 04/06/20 Rx Allergies Allergy/AdvReac Type Severity Reaction Status Date / Time No Known Allergies Allergy Verified 04/06/20 12:45 Physical Examination - Vital Signs Vital Signs: Vital Signs Temp Pulse Resp BP Pulse Ox 04/08/20 08:50 97.6 F 68 16 91/54 95 04/08/20 07:26 98 04/08/20 04:00 98.4 F 83 18 102/47 93 L 04/08/20 02:00 83 18 04/08/20 00:00 97.9 F 79 17 123/79 96 04/07/20 19:49 98.2 F 69 18 131/67 96 04/07/20 16:31 96 04/07/20 16:00 98.3 F 70 18 138/82 96 04/07/20 11:58 96.4 F L 66 18 96/53 94 L Intake and Output 04/07/20 04/08/20 04/08/20 22:59 06:59 14:59 Intake Total 120 222 Output Total 1550 200 Balance -1430 -200 222 Intake: Oral 120 222 Output: Urine 1550 200 Other: Voiding Method Bedside Commode Bedside Commode Weight 78.3 kg On examination patient is an elderly male, in no acute distress. Patient is alert and awake oriented to time place and person. Speech and language functions are normal. Attention and concentration fund of knowledge is adequate. Detail testing deferred. On cranial examination pupils are round and reacting, visual talamantes are full to confrontation, extraocular muscles are intact with mild nystagmus. Face is symmetric, tongue protrudes to the midline. Palatal elevation and sensation normal, hearing and shoulder shrug normal. Facial sensation normal. On muscle strength testing there is no pronator drift and the strength is normal in both arms distally and proximally. In the lower limbs, his left leg is completely normal. In the right lower extremity hip flexion is 3+, abduction is 5, abduction 3+ to 4, knee extension 5, he has a foot drop. Plantar flexion also appears weak about 4+5-. Reflexes are 2 in the upper limbs, 2+ at the right knee, 3 at the left knee, ankles are absent bilaterally. Plantar is flat on the right, upgoing on the left. Sensory touch is equal with no neglect. He has some ataxia for [id number] testing bilaterally. Some clumsiness for rapid supination and pronation. Gait was deferred. On general examination there is no obvious bruit, S1 and S2 audible, abdomen soft nontender, chest is clear. Results - Laboratory Findings CBC and BMP: 04/08/20 05:30 04/08/20 05:30 Abnormal Lab Findings: Abnormal Labs 04/06/20 04/06/20 04/06/20 13:04 13:12 13:12 Plt Count 143 L Neutrophils # 8.2 H Lymphocytes # 0.8 L PT 20.4 H INR 2.1 H APTT 31.5 H Carbon Dioxide BUN Creatinine Glucose Plasma Lactic Acid Justino Troponin I Total Protein HDL Cholesterol Urine Protein 1+ H Urine Blood Moderate H Ur Leukocyte Esterase Large H Urine RBC 116 H Urine WBC >182 H Urine Bacteria Few H Urine Mucus Rare H 04/06/20 04/06/20 04/06/20 13:12 13:12 13:12 Plt Count Neutrophils # Lymphocytes # PT INR APTT Carbon Dioxide BUN 28 H Creatinine 1.42 H Glucose 149 H Plasma Lactic Acid Ujstino 2.2 H* Troponin I 0.061 H* Total Protein 6.2 L HDL Cholesterol Urine Protein Urine Blood Ur Leukocyte Esterase Urine RBC Urine WBC Urine Bacteria Urine Mucus 04/06/20 04/06/20 04/07/20 16:41 19:39 06:56 Plt Count Neutrophils # Lymphocytes # 0.6 L PT INR APTT Carbon Dioxide BUN Creatinine Glucose Plasma Lactic Acid Justino Troponin I 0.043 H* 0.043 H* Total Protein HDL Cholesterol Urine Protein Urine Blood Ur Leukocyte Esterase Urine RBC Urine WBC Urine Bacteria Urine Mucus 04/07/20 04/07/20 04/08/20 06:56 06:56 05:30 Plt Count Neutrophils # Lymphocytes # PT 20.0 H INR 2.1 H APTT Carbon Dioxide 34 H 35 H BUN 28 H 34 H Creatinine 1.41 H 1.47 H Glucose 109 H 117 H Plasma Lactic Acid Justino Troponin I Total Protein HDL Cholesterol 31 L Urine Protein Urine Blood Ur Leukocyte Esterase Urine RBC Urine WBC Urine Bacteria Urine Mucus 04/08/20 05:30 Plt Count Neutrophils # Lymphocytes # PT 22.5 H INR 2.3 H APTT Carbon Dioxide BUN Creatinine Glucose Plasma Lactic Acid Justino Troponin I Total Protein HDL Cholesterol Urine Protein Urine Blood Ur Leukocyte Esterase Urine RBC Urine WBC Urine Bacteria Urine Mucus Assessment and Plan Assessment: * Generalized weakness, likely related to pneumonia, possible UTI and dehydration. * Patient's weakness came on all of a sudden, had mild pneumonia, and mild UTI, but still feels very weak, not steady on his feet. MS exacerbation is a possibility. * Multiple sclerosis. * Atrial fibrillation, on long-term anticoagulation. * Elevated cardiac enzymes, cardiology on board. * Pacemaker * Hypertension * Chronic renal insufficiency * Chronic right leg weakness, possible MS related versus lumbar spine related * History of back surgery. Plan: * Patient has history of multiple sclerosis but currently is in remission. He does have chronic right leg weakness perhaps from MS versus lumbar spine related. Patient denies any worsening of baseline weakness of right leg, or any focal weakness elsewhere. Patient's generalized weakness is possibly related to underlying infectious process, pneumonia, possible UTI, elevated ca rdiac enzymes, worsening renal functions, worsening ejection fraction on echo, and perhaps medication side effect. I do not see any evidence of MS exacerbation. Would avoid corticosteroids, as with multiple other medical issues including ongoing infectious process, may pose more risk than benefit. Patient states that steroids never helped him in the past with MS exacerbations. * Patient's cardiac enzymes is also elevated, for which cardiology is on board. * Neurologically no other workup indicated. * We will check B12, folate. * Due to his renal insufficiency, Neurontin may be supratherapeutic, therefore we'll decrease dose of Neurontin to 300 mg 3 times a day. We will check a Neurontin level. * PT OT, consider rehab consult.
--- NOTE | 2020-04-08 14:28 | P.PN ---
Subjective Progress Note Date: 04/08/20 CHIEF COMPLAINT: Abnormal troponins HISTORY OF PRESENT ILLNESS: Patient examined this morning at the bedside. He denies chest pain or pressure. Denies shortness of breath. Echocardiogram completed revealed ejection fraction 35-40%, mild mitral regurgitation, and mild tricuspid regurgitation. Blood pressure 91/54. Patient asymptomatic. He denies any dizziness or lightheadedness. PHYSICAL EXAM: VITAL SIGNS: Reviewed. GENERAL: Well-developed in no acute distress. HEENT: Head is normocephalic. Pupils are equal, round. Sclerae anicteric. Mucous membranes of the mouth are moist. Neck supple. No JVD or thyromegaly. LUNGS: Respirations even and unlabored. Lungs essentially clear to auscultation bilaterally. HEART: Irregular rate and rhythm. S1 and S2 heard. ABDOMEN: Soft. Nondistended. Nontender. EXTREMITIES: Normal range of motion. No clubbing or cyanosis. Peripheral pulses intact. No lower extremity edema NEUROLOGIC: Awake and alert. Oriented x 3. ASSESSMENT: Weakness x 8 days Possible pneumonia Abnormal UA, possible urinary tract infection Elevated lactic acid Chronic persistent atrial fibrillation History of permanent pacemaker insertion Coronary artery disease with known RCA occlusion Abnormal troponins, suspect secondary to infectious process Multiple sclerosis Hypertension Hyperlipidemia PLAN: Continue Coumadin for anticoagulation Continue additional current cardiac medications Patient is stable from a cardiac perspective Further recommendations pending patient's course Nurse practitioner note has been reviewed by physician. Signing provider agrees with the documented findings, assessment, and plan of care. Objective - Vital Signs Vital signs: Vital Signs Temp 97.6 F 04/08/20 08:50 Pulse 80 04/08/20 10:50 Resp 16 04/08/20 10:50 BP 85/52 04/08/20 10:50 Pulse Ox 95 04/08/20 10:50 Intake & Output 04/07/20 04/08/20 04/08/20 18:59 06:59 18:59 Intake Total 843 222 Output Total 2250 400 200 Balance -1407 -400 22 Weight 78.3 kg Intake: Oral 843 222 Output: Urine 2250 400 200 Other: Voiding Method Bedside Commode Bedside Commode Bedside Commode - Labs CBC & Chem 7: 04/08/20 05:30 04/08/20 05:30 Labs: Abnormal Lab Results - Last 24 Hours (Table) 04/08/20 04/08/20 Range/Units 05:30 05:30 PT 22.5 H (9.0-12.0) sec INR 2.3 H (<1.2) Carbon Dioxide 35 H (22-30) mmol/L BUN 34 H (9-20) mg/dL Creatinine 1.47 H (0.66-1.25) mg/dL Glucose 117 H (74-99) mg/dL Microbiology - Last 24 Hours (Table) 04/06/20 13:12 Blood Culture - Preliminary Blood No Growth after 24 hours
[2020-04-08] MEDS ORDERED: GABAPENTIN 300 MG CAP PO SCH (16:00)
[2020-04-08 17:10] VITALS: BP 131/74; PULSE 75; TEMP 98.6
[2020-04-08] MEDS ORDERED: WARFARIN 2.5 MG TAB PO SCH (18:30)
[2020-04-08 22:42] LABS: Folate, Serum 11.2 ng/mL
--- NOTE | 2020-04-09 08:10 | P.DS ---
Providers Date of admission: 04/06/20 16:38 Expected date of discharge: 04/08/20 Attending physician: Jeison Reyes Consults: 04/06/20 16:31 Consult Physician Urgent Consulting Provider: Eduar Nation Consult Reason/Comments: possible NSTEMI Do you want consulting provider notified?: Yes 04/08/20 08:16 Consult Physician Urgent Consulting Provider: Carlos Raya Consult Reason/Comments: MS EXACERBATION Do you want consulting provider notified?: Yes Primary care physician: Jeison Reyes Hospital Course: 79-year-old male was admitted on 04/06/2020 for generalized weakness, and episodes of chills and diaphoresis. Patient stated 7 days prior to progressive of weaknessnear syncopal episode, patient states felt unbalance before falling. Patient found to have elevated troponinsechocardiogram performed with ejection fraction of 35-40%. Cardiology was consulted for elevated troponins and mild heart failurerecommendations increase metoprolol 100 mg twice a day-from cardiology standpoint. Community-acquired pneumonia was treated with Zithromax and Rocephin. Acute kidney injury was resolved with mild hydration. Consulted neurology regarding possible multiple sclerosis exacerbationruled out. Recommendations from neurology to decrease Neurontin to 300 mg 3 times a day. Patient to follow-up with our services 1-2 days patient to follow-up with neurologist within 1-2 days. Patient tolerated treatment plan Assessment: Non-STEMI Community-acquired pneumonia Acute kidney injury Mild hypoxia Weakness Multiple sclerosis History of myocardial infarction Osteoarthritis Hypothyroidism Hyperlipidemia Atrial fibrillation Health Concerns: Difficulty with ambulation due to multiple sclerosis Pertinent Studies: Serial chest x-rays Echocardiogram CT of the head X-ray of abdomen Procedures: None noted Patient Condition at Discharge: Good Plan - Discharge Summary Discharge Rx Participant: Yes New Discharge Prescriptions: New Metoprolol Tartrate [Lopressor] 100 mg PO BID@0700,1830 #30 tab Gabapentin [Neurontin] 300 mg PO TID #90 cap Cefdinir [Omnicef] 300 mg PO Q12HR 5 Days #10 capsule Azithromycin [Zithromax Tri-Maik (3 tabs)] 500 mg PO DAILY 3 Days #3 tab Continue Ramipril [Altace] 10 mg PO DAILY@1830 Isosorbide Mononitrate [Imdur] 60 mg PO HS@2300 Baclofen [Lioresal] 10 mg PO TID@0700,1500,2300 Warfarin [Coumadin] 2.5 mg PO SUTH@1830 Aspirin 81 mg PO DAILY@0700 Digoxin [Lanoxin] 125 mcg PO HS@2300 Simvastatin [Zocor] 40 mg PO HS@1830 Warfarin [Coumadin] 1.25 mg PO MOTUWEFRSA@1830 Tamsulosin [Flomax] 0.4 mg PO BID@0700,1830 Acetaminophen Tab [Tylenol] 500 mg PO Q6H PRN #30 tablet PRN Reason: Pain Discontinued Metoprolol Tartrate [Lopressor] 75 mg PO BID@0700,183 Gabapentin [Neurontin] 300 mg PO QID Discharge Medication List Aspirin 81 mg PO DAILY@0709/02/13 [History] Baclofen [Lioresal] 10 mg PO TID@0700,1500,2300 09/02/13 [History] Digoxin [Lanoxin] 125 mcg PO HS@23009/02/13 [History] Isosorbide Mononitrate [Imdur] 60 mg PO HS@23009/02/13 [History] Ramipril [Altace] 10 mg PO DAILY@182909/02/13 [History] Simvastatin [Zocor] 40 mg PO HS@182909/02/13 [History] Warfarin [Coumadin] 2.5 mg PO SUTH@182909/02/13 [History] Warfarin [Coumadin] 1.25 mg PO MOTUWEFRSA@1830 03/06/18 [History] Tamsulosin [Flomax] 0.4 mg PO BID@0700,18309/03/19 [History] Acetaminophen Tab [Tylenol] 500 mg PO Q6H PRN #30 tablet 09/04/19 [Rx] Azithromycin [Zithromax Tri-Maik (3 tabs)] 500 mg PO DAILY 3 Days #3 tab 04/08/20 [Rx] Cefdinir [Omnicef] 300 mg PO Q12HR 5 Days #10 capsule 04/08/20 [Rx] Gabapentin [Neurontin] 300 mg PO TID #90 cap 04/08/20 [Rx] Metoprolol Tartrate [Lopressor] 100 mg PO BID@0700,183 #30 tab 04/08/20 [Rx] Follow up Appointment(s)/Referral(s): Jieson Reyes MD [Primary Care Provider] - 1-2 days [facility], [NON-STAFF] - Patient Instructions/Handouts: Urinary Tract Infection in Men (DC), Community Acquired Pneumonia (DC), Weakness (DC) Discharge Disposition: HOME SELF-CARE
[2020-04-09] MEDS ORDERED: ASPIRIN 81 MG PO SCH (09:00)
== END 2020-04-08 18:31 | disposition home or self-care (01) | DRG 280 ==
LOC: EC 12:35 → 3SCARD 16:38
PROVIDERS: ADMIT Family Medicine; ATTEND Family Medicine
DX: I21.4 Non-ST elevation (NSTEMI) myocardial infarction (principal); J18.9 Pneumonia, unspecified organism; I48.20 Chronic atrial fibrillation, unspecified; J44.0 Chronic obstructive pulmonary disease with (acute) lower respiratory infection; N17.9 Acute kidney failure, unspecified; N39.0 Urinary tract infection, site not specified; E87.2 Acidosis; I13.10 Hypertensive heart and chronic kidney disease without heart failure, with stage 1 through stage 4 chronic kidney disease, or unspecified chronic kidney disease; E03.9 Hypothyroidism, unspecified; E78.5 Hyperlipidemia, unspecified; G35 Multiple sclerosis; I25.10 Atherosclerotic heart disease of native coronary artery without angina pectoris; I25.2 Old myocardial infarction; I45.10 Unspecified right bundle-branch block; Z79.01 Long term (current) use of anticoagulants; M19.90 Unspecified osteoarthritis, unspecified site; N18.9 Chronic kidney disease, unspecified; R09.02 Hypoxemia; S09.90XA Unspecified injury of head, initial encounter; Z20.828 Contact with and (suspected) exposure to other viral communicable diseases; Z91.81 History of falling; Z79.82 Long term (current) use of aspirin; Z79.899 Other long term (current) drug therapy; Z85.46 Personal history of malignant neoplasm of prostate; Z86.73 Personal history of transient ischemic attack (TIA), and cerebral infarction without residual deficits; Z87.891 Personal history of nicotine dependence; Z95.0 Presence of cardiac pacemaker; F10.20 Alcohol dependence, uncomplicated; Z92.3 Personal history of irradiation; Z80.9 Family history of malignant neoplasm, unspecified
CPT/HCPCS: 36415; 70450; 71046; 74019; 80053; 80061; 80162; 80171; 81001; 82607; 82746; 83605; 83735; 83880; 84100; 84145; 84443; 84484; 85025; 85610; 85730; 87040; 87086; 87635; 93005; 93306; 94760; 96361; 96374; 99285

== ENCOUNTER 2020-04-20 22:22 | Emergency (ER) | payer MEDICARE ==
[2020-04-20] MEDS ORDERED: SODIUM CHLORIDE 0.9% 1,000 ML IV STA ×2 (22:31→23:41)
[2020-04-20 22:58] LABS: Basophils # (A) 0.1 k/uL (0-0.2); Basophils % (A) 1 %; Eosinophils # (A) 0.1 k/uL (0-0.7); Eosinophils % (A) 1 %; HCT 42.5 % (39.0-53.0); HGB 13.9 gm/dL (13.0-17.5); Lymphocytes # (A) 0.4 k/uL (1.0-4.8); Lymphocytes % (A) 3 %; MCH 29.8 pg (25.0-35.0); MCHC 32.8 g/dL (31.0-37.0); MCV 90.7 fL (80.0-100.0); Mean Platelet Volume 7.2; Monocytes # (A) 0.6 k/uL (0-1.0); Monocytes % (A) 5 %; Neutrophils # (A) 10.7 k/uL (1.3-7.7); Neutrophils % (A) 90 %; Platelet Count 179 k/uL (150-450); RBC 4.68 m/uL (4.30-5.90); RDW 12.5 % (11.5-15.5)
--- NOTE | 2020-04-20 23:01 | XR ---
EXAM: XR Chest, 2 Views CLINICAL HISTORY: Weakness. TECHNIQUE: Frontal and lateral views of the chest. COMPARISON: 04/08/2020. FINDINGS: Lungs: Scarring versus atelectasis at the left lung base. Pleural space: Unremarkable. No pneumothorax. Heart: Cardiomegaly is again noted, unchanged. Mediastinum: Unremarkable. Bones/joints: Osteopenia. Vasculature: Atherosclerotic disease of the aortic knob. Tubes, lines and devices: Pacemaker overlies the left mid chest. IMPRESSION: 1. Cardiomegaly not significant change. 2. Minimal scarring versus subsegmental atelectasis at the left lung base. 3. Osteopenia.
--- NOTE | 2020-04-20 23:02 | ED ---
Weakness HPI - General Chief complaint: Weakness Stated complaint: Weakness Time Seen by Provider: 04/20/20 22:29 Source: patient, EMS, RN notes reviewed, old records reviewed Mode of arrival: EMS Limitations: no limitations - History of Present Illness Initial comments: This is a 79-year-old male DF for evaluation. Patient Dese for evaluation of weakness weakness began after dinner he got up "around his house and status wasn't feeling as well as he has lately but denies any headache chest pain no shortness of breath abdominal pain no fevers no recent nausea vomiting or diarrhea, patient is otherwise without significant complaint MD Complaint: generalized weakness -: hour(s) Location: generalized Severity: moderate Severity scale (1-10): 4 Consistency: constant Improves with: none Worsens with: none Context: recent illness Associated Symptoms: denies other symptoms - Related Data Home Medications Medication Instructions Recorded Confirmed Aspirin 81 mg PO DAILY@0700 09/02/13 04/20/20 Baclofen [Lioresal] 10 mg PO TID@0700,1500,2300 09/02/13 04/20/20 Digoxin [Lanoxin] 125 mcg PO HS@229909/02/13 04/20/20 Isosorbide Mononitrate [Imdur] 60 mg PO HS@229909/02/13 04/20/20 Ramipril [Altace] 10 mg PO DAILY@182909/02/13 04/20/20 Simvastatin [Zocor] 40 mg PO HS@182909/02/13 04/20/20 Warfarin [Coumadin] 2.5 mg PO SUTH@182909/02/13 04/20/20 Warfarin [Coumadin] 1.25 mg PO MOTUWEFRSA@1830 03/06/18 04/20/20 Tamsulosin [Flomax] 0.4 mg PO BID@0700,1830 09/03/19 04/20/20 Gabapentin [Neurontin] 300 mg PO TID@0700,1500,2300 04/20/20 04/20/20 Metoprolol Tartrate [Lopressor] 50 mg PO BID@0700,1830 04/20/20 04/20/20 Allergies Allergy/AdvReac Type Severity Reaction Status Date / Time No Known Allergies Allergy Verified 04/20/20 23:27 Review of Systems ROS Statement: Those systems with pertinent positive or pertinent negative responses have been documented in the HPI. ROS Other: All systems not noted in ROS Statement are negative. Past Medical History Past Medical History: Atrial Fibrillation, Cancer, CVA/TIA, Hyperlipidemia, Hypertension, Osteoarthritis (OA), Prostate Disorder, Thyroid Disorder Additional Past Medical History / Comment(s): [place] ASKEW. prostate cancer 2015-had radiation. Generator change-01/14/2019 PACEMAKER ONLY, NO DEFIBRILLATOR Last Myocardial Infarction Date:: unk DATE History of Any Multi-Drug Resistant Organisms: None Reported Past Surgical History: Back Surgery, Heart Catheterization, Hernia Repair, Pacemaker Additional Past Surgical History / Comment(s): PACEMAKER, Generator change- 01/14/2019 Past Anesthesia/Blood Transfusion Reactions: No Reported Reaction Type of Cardiac Device: Permanent Pacemaker Device Placement Date:: 05/02/11 Past Psychological History: No Psychological Hx Reported Smoking Status: Never smoker Past Alcohol Use History: Occasional Past Drug Use History: None Reported - Past Family History Mother Family Medical History: No Reported History Sister(s) Family Medical History: Cancer General Exam Limitations: no limitations General appearance: alert, in no apparent distress Head exam: Present: atraumatic, normocephalic, normal inspection Eye exam: Present: normal appearance, PERRL, EOMI. Absent: scleral icterus, conjunctival injection, periorbital swelling ENT exam: Present: normal exam, mucous membranes moist Neck exam: Present: normal inspection. Absent: tenderness, meningismus, lymphadenopathy Respiratory exam: Present: normal lung sounds bilaterally. Absent: respiratory distress, wheezes, rales, rhonchi, stridor Cardiovascular Exam: Present: regular rate, normal rhythm, normal heart sounds. Absent: systolic murmur, diastolic murmur, rubs, gallop, clicks GI/Abdominal exam: Present: soft, normal bowel sounds. Absent: distended, tenderness, guarding, rebound, rigid Extremities exam: Present: normal inspection, full ROM, normal capillary refill. Absent: tenderness, pedal edema, joint swelling, calf tenderness Back exam: Present: normal inspection Neurological exam: Present: alert, oriented X3, CN II-XII intact Psychiatric exam: Present: normal affect, normal mood Skin exam: Present: warm, dry, intact, normal color. Absent: rash Course Vital Signs 04/20/20 04/20/20 04/21/20 22:23 22:37 00:07 Temperature 99.5 F Pulse Rate 87 81 76 Respiratory 18 18 19 Rate Blood Pressure 175/102 171/91 157/89 O2 Sat by Pulse 96 96 94 L Oximetry - Reevaluation(s) Reevaluation #1: 04/21/20 00:41 Records reviewed including inpatient hospitalization Reevaluation #2: 04/21/20 00:41 Patient feels relatively well admits to being and patient wanting to go home Reevaluation #3: 04/21/20 00:42 Patient was able to ambulate with good strength Patient is informed of results and questions are answered EKG Findings - EKG Comments: EKG Findings:: EKG shows sinus rhythm A. fib rate of 79 QRS 78 QTc 424 Medical Decision Making - Medical Decision Making 79 male DF for evaluation weakness. No acute cause found. Patient can be discharged home - Lab Data Result diagrams: 04/20/20 22:45 04/20/20 22:45 Lab Results 04/20/20 04/20/20 04/20/20 Range/Units 22:45 22:45 22:45 WBC 12.0 H (3.8-10.6) k/uL RBC 4.68 (4.30-5.90) m/uL Hgb 13.9 (13.0-17.5) gm/dL Hct 42.5 (39.0-53.0) % MCV 90.7 (80.0-100.0) fL MCH 29.8 (25.0-35.0) pg MCHC 32.8 (31.0-37.0) g/dL RDW 12.5 (11.5-15.5) % Plt Count 179 (150-450) k/uL MPV 7.2 Neutrophils % 90 % Lymphocytes % 3 % Monocytes % 5 % Eosinophils % 1 % Basophils % 1 % Neutrophils # 10.7 H (1.3-7.7) k/uL Lymphocytes # 0.4 L (1.0-4.8) k/uL Monocytes # 0.6 (0-1.0) k/uL Eosinophils # 0.1 (0-0.7) k/uL Basophils # 0.1 (0-0.2) k/uL PT 24.4 H (9.0-12.0) sec INR 2.5 H (<1.2) APTT 23.8 (22.0-30.0) sec Sodium (137-145) mmol/L Potassium (3.5-5.1) mmol/L Chloride (98-107) mmol/L Carbon Dioxide (22-30) mmol/L Anion Gap mmol/L BUN (9-20) mg/dL Creatinine (0.66-1.25) mg/dL Est GFR (CKD-EPI)AfAm (>60 ml/min/1.73 sqM) Est GFR (CKD-EPI)NonAf (>60 ml/min/1.73 sqM) Glucose (74-99) mg/dL Plasma Lactic Acid Justino (0.7-2.0) mmol/L Calcium (8.4-10.2) mg/dL Phosphorus (2.5-4.5) mg/dL Magnesium (1.6-2.3) mg/dL Total Bilirubin (0.2-1.3) mg/dL AST (17-59) U/L ALT (4-49) U/L Alkaline Phosphatase (38-126) U/L Lactate Dehydrogenase (313-618) U/L Creatine Kinase (55-170) U/L Troponin I (0.000-0.034) ng/mL C-Reactive Protein (<10.0) mg/L NT-Pro-B Natriuret Pep pg/mL Total Protein (6.3-8.2) g/dL Albumin (3.5-5.0) g/dL TSH (0.465-4.680) mIU/L Urine Color Light Yellow Urine Appearance Cloudy (Clear) Urine pH 6.5 (5.0-8.0) Ur Specific [place] 1.012 (1.001-1.035) Urine Protein 1+ H (Negative) Urine Glucose (UA) Negative (Negative) Urine Ketones Negative (Negative) Urine Blood Small H (Negative) Urine Nitrite Negative (Negative) Urine Bilirubin Negative (Negative) Urine Urobilinogen 2.0 (<2.0) mg/dL Ur Leukocyte Esterase Large H (Negative) Urine RBC 31 H (0-5) /hpf Urine WBC 67 H (0-5) /hpf Ur Squamous Epith Cells <1 (0-4) /hpf Urine Bacteria Occasional H (None) /hpf Urine Mucus Rare H (None) /hpf 04/20/20 04/20/20 04/20/20 Range/Units 22:45 22:45 22:45 WBC (3.8-10.6) k/uL RBC (4.30-5.90) m/uL Hgb (13.0-17.5) gm/dL Hct (39.0-53.0) % MCV (80.0-100.0) fL MCH (25.0-35.0) pg MCHC (31.0-37.0) g/dL RDW (11.5-15.5) % Plt Count (150-450) k/uL MPV Neutrophils % % Lymphocytes % % Monocytes % % Eosinophils % % Basophils % % Neutrophils # (1.3-7.7) k/uL Lymphocytes # (1.0-4.8) k/uL Monocytes # (0-1.0) k/uL Eosinophils # (0-0.7) k/uL Basophils # (0-0.2) k/uL PT (9.0-12.0) sec INR (<1.2) APTT (22.0-30.0) sec Sodium 140 (137-145) mmol/L Potassium 4.7 (3.5-5.1) mmol/L Chloride 106 (98-107) mmol/L Carbon Dioxide 29 (22-30) mmol/L Anion Gap 5 mmol/L BUN 29 H (9-20) mg/dL Creatinine 1.38 H (0.66-1.25) mg/dL Est GFR (CKD-EPI)AfAm 57 (>60 ml/min/1.73 sqM) Est GFR (CKD-EPI)NonAf 49 (>60 ml/min/1.73 sqM) Glucose 171 H (74-99) mg/dL Plasma Lactic Acid Justino 1.9 (0.7-2.0) mmol/L Calcium 9.0 (8.4-10.2) mg/dL Phosphorus 2.0 L (2.5-4.5) mg/dL Magnesium 1.9 (1.6-2.3) mg/dL Total Bilirubin 0.5 (0.2-1.3) mg/dL AST 24 (17-59) U/L ALT 19 (4-49) U/L Alkaline Phosphatase 70 (38-126) U/L Lactate Dehydrogenase 497 (313-618) U/L Creatine Kinase 71 (55-170) U/L Troponin I 0.031 (0.000-0.034) ng/mL C-Reactive Protein 7.4 (<10.0) mg/L NT-Pro-B Natriuret Pep pg/mL Total Protein 6.6 (6.3-8.2) g/dL Albumin 4.0 (3.5-5.0) g/dL TSH 1.080 (0.465-4.680) mIU/L Urine Color Urine Appearance (Clear) Urine pH (5.0-8.0) Ur Specific [place] (1.001-1.035) Urine Protein (Negative) Urine Glucose (UA) (Negative) Urine Ketones (Negative) Urine Blood (Negative) Urine Nitrite (Negative) Urine Bilirubin (Negative) Urine Urobilinogen (<2.0) mg/dL Ur Leukocyte Esterase (Negative) Urine RBC (0-5) /hpf Urine WBC (0-5) /hpf Ur Squamous Epith Cells (0-4) /hpf Urine Bacteria (None) /hpf Urine Mucus (None) /hpf 04/20/20 Range/Units 22:45 WBC (3.8-10.6) k/uL RBC (4.30-5.90) m/uL Hgb (13.0-17.5) gm/dL Hct (39.0-53.0) % MCV (80.0-100.0) fL MCH (25.0-35.0) pg MCHC (31.0-37.0) g/dL RDW (11.5-15.5) % Plt Count (150-450) k/uL MPV Neutrophils % % Lymphocytes % % Monocytes % % Eosinophils % % Basophils % % Neutrophils # (1.3-7.7) k/uL Lymphocytes # (1.0-4.8) k/uL Monocytes # (0-1.0) k/uL Eosinophils # (0-0.7) k/uL Basophils # (0-0.2) k/uL PT (9.0-12.0) sec INR (<1.2) APTT (22.0-30.0) sec Sodium (137-145) mmol/L Potassium (3.5-5.1) mmol/L Chloride (98-107) mmol/L Carbon Dioxide (22-30) mmol/L Anion Gap mmol/L BUN (9-20) mg/dL Creatinine (0.66-1.25) mg/dL Est GFR (CKD-EPI)AfAm (>60 ml/min/1.73 sqM) Est GFR (CKD-EPI)NonAf (>60 ml/min/1.73 sqM) Glucose (74-99) mg/dL Plasma Lactic Acid Justino (0.7-2.0) mmol/L Calcium (8.4-10.2) mg/dL Phosphorus (2.5-4.5) mg/dL Magnesium (1.6-2.3) mg/dL Total Bilirubin (0.2-1.3) mg/dL AST (17-59) U/L ALT (4-49) U/L Alkaline Phosphatase (38-126) U/L Lactate Dehydrogenase (313-618) U/L Creatine Kinase (55-170) U/L Troponin I (0.000-0.034) ng/mL C-Reactive Protein (<10.0) mg/L NT-Pro-B Natriuret Pep 2120 pg/mL Total Protein (6.3-8.2) g/dL Albumin (3.5-5.0) g/dL TSH (0.465-4.680) mIU/L Urine Color Urine Appearance (Clear) Urine pH (5.0-8.0) Ur Specific [place] (1.001-1.035) Urine Protein (Negative) Urine Glucose (UA) (Negative) Urine Ketones (Negative) Urine Blood (Negative) Urine Nitrite (Negative) Urine Bilirubin (Negative) Urine Urobilinogen (<2.0) mg/dL Ur Leukocyte Esterase (Negative) Urine RBC (0-5) /hpf Urine WBC (0-5) /hpf Ur Squamous Epith Cells (0-4) /hpf Urine Bacteria (None) /hpf Urine Mucus (None) /hpf - Radiology Data Radiology results: report reviewed (Chest x-rays negative for acute disease), image reviewed Disposition Clinical Impression: Multiple sclerosis, Weakness Disposition: HOME SELF-CARE Condition: Good Instructions (If sedation given, give patient instructions): Weakness (ED) Is patient prescribed a controlled substance at d/c from ED?: No Referrals: Jeison Reyes MD [Primary Care Provider] - 1-2 days
[2020-04-20 23:12] LABS: C Reactive Protein 7.4 mg/L (<10.0); Magnesium 1.9 mg/dL (1.6-2.3); Potassium 4.7 mmol/L (3.5-5.1); Total Bilirubin 0.5 mg/dL (0.2-1.3); Total Protein 6.6 g/dL (6.3-8.2)
[2020-04-20 23:14] LABS: INR 2.5 (<1.2); Partial Thromboplastin Time 23.8 sec (22.0-30.0); Prothrombin Time 24.4 sec (9.0-12.0)
[2020-04-20 23:21] LABS: Appearance,Urine Cloudy (Clear); Bacteria,Urine Occasional /hpf; Bilirubin,Urine Negative (Negative); Blood,Urine Small (Negative); Color,Urine Light Yellow; Glucose,Urine (UA) Negative (Negative); Ketones,Urine Negative (Negative); Leukocyte Esterase,Urine Large (Negative); Mucus,Urine Rare /hpf; Nitrite,Urine Negative (Negative); PH, Urine 6.5 (5.0-8.0); Protein,Urine 1+ (Negative); RBC,Urine 31 /hpf (0-5); Specific Gravity,Urine 1.012 (1.001-1.035); Squamous Epithelial Cell,Urine <1 /hpf (0-4); WBC,Urine 67 /hpf (0-5)
[2020-04-20] MEDS ORDERED: SODIUM CHLORIDE 0.9% 500 ML 500 ML IV STA (23:41)
[2020-04-20] MEDS ORDERED: POTAS-SOD-PHOS 278-164-250 MG 1 EACH PACKET PO SCH (23:45)
[2020-04-21 01:18] VITALS: BP 163/92; PULSE 83; RESP 18; TEMP 98.3
== END 2020-04-21 00:55 | disposition home or self-care (01) ==
LOC: EC 22:22
DX: G35 Multiple sclerosis (principal); I48.91 Unspecified atrial fibrillation; E78.5 Hyperlipidemia, unspecified; I10 Essential (primary) hypertension; M19.90 Unspecified osteoarthritis, unspecified site; E07.9 Disorder of thyroid, unspecified; I25.2 Old myocardial infarction; Z79.82 Long term (current) use of aspirin; Z79.01 Long term (current) use of anticoagulants; Z79.899 Other long term (current) drug therapy; Z86.73 Personal history of transient ischemic attack (TIA), and cerebral infarction without residual deficits; Z95.0 Presence of cardiac pacemaker; Z85.46 Personal history of malignant neoplasm of prostate; Z95.5 Presence of coronary angioplasty implant and graft
CPT/HCPCS: 36415; 93005; 83880; 80053; 82550; 83605; 83615; 83735; 84100; 84443; 84484; 85025; 85610; 85730; 86140; 81001; 87086; 71046; 99285; 96365; 96361; J0696

== ENCOUNTER 2020-04-21 04:36 | Inpatient (IN) | payer MEDICARE ==
[2020-04-21] MEDS ORDERED: SODIUM CHLORIDE 0.9% 1,000 ML IV STA ×2 (04:40)
[2020-04-21] MEDS ORDERED: ACETAMINOPHEN TAB 500 MG TAB PO STA (04:40)
[2020-04-21] MEDS ORDERED: SODIUM CHLORIDE 0.9% 500 ML 500 ML IV STA (04:40)
[2020-04-21] MEDS ORDERED: cefTRIAXone IN SWFI 1,000 MG/10 ML SYRINGE IVP STA (04:40)
[2020-04-21] MEDS ORDERED: IBUPROFEN 600 MG TAB PO STA (04:41)
--- NOTE | 2020-04-21 04:42 | ED ---
Fever HPI - General Stated Complaint: Weakness Time Seen by Provider: 04/21/20 04:40 Source: RN notes reviewed, old records reviewed Limitations: no limitations - History of Present Illness Initial Comments: This is a 79-year-old male DF for evaluation patient Dese for evaluation regards to weakness persistent weakness here in the ER earlier today for same. Patient also knows that involves some shaking and chills and fever. Patient denying any chest pain no abdominal pain no nausea vomiting or diarrhea. His does not feel well MD Complaint: fever, malaise, weakness -: days(s) Temperature Source: subjective Context: sick contacts, multiple patients with similar symptoms Associated Symptoms: chills, myalgias Treatments Prior to Arrival: none - Related Data Home Medications Medication Instructions Recorded Confirmed Aspirin 81 mg PO DAILY@0700 09/02/13 04/20/20 Baclofen [Lioresal] 10 mg PO TID@0700,1500,2300 09/02/13 04/20/20 Digoxin [Lanoxin] 125 mcg PO HS@229909/02/13 04/20/20 Isosorbide Mononitrate [Imdur] 60 mg PO HS@2300 09/02/13 04/20/20 Ramipril [Altace] 10 mg PO DAILY@182909/02/13 04/20/20 Simvastatin [Zocor] 40 mg PO HS@182909/02/13 04/20/20 Warfarin [Coumadin] 2.5 mg PO SUTH@18309/02/13 04/20/20 Warfarin [Coumadin] 1.25 mg PO MOTUWEFRSA@1830 03/06/18 04/20/20 Tamsulosin [Flomax] 0.4 mg PO BID@0700,1830 09/03/19 04/20/20 Gabapentin [Neurontin] 300 mg PO TID@0700,1500,2300 04/20/20 04/20/20 Metoprolol Tartrate [Lopressor] 50 mg PO BID@0700,1830 04/20/20 04/20/20 Allergies Allergy/AdvReac Type Severity Reaction Status Date / Time No Known Allergies Allergy Verified 04/20/20 23:27 Review of Systems ROS Statement: Those systems with pertinent positive or pertinent negative responses have been documented in the HPI. ROS Other: All systems not noted in ROS Statement are negative. Past Medical History Past Medical History: Atrial Fibrillation, Cancer, CVA/TIA, Hyperlipidemia, Hypertension, Osteoarthritis (OA), Prostate Disorder, Thyroid Disorder Additional Past Medical History / Comment(s): [place], hx. prostate cancer 2014-had radiation. Generator change-01/14/2019 PACEMAKER ONLY, NO DEFIBRILLATOR Last Myocardial Infarction Date:: unk DATE History of Any Multi-Drug Resistant Organisms: None Reported Past Surgical History: Back Surgery, Heart Catheterization, Hernia Repair, Pacemaker Additional Past Surgical History / Comment(s): PACEMAKER, Generator change- 01/14/2019 Past Anesthesia/Blood Transfusion Reactions: No Reported Reaction Type of Cardiac Device: Permanent Pacemaker Device Placement Date:: 05/02/11 Past Psychological History: No Psychological Hx Reported Smoking Status: Never smoker Past Alcohol Use History: Occasional Past Drug Use History: None Reported - Past Family History Mother Family Medical History: No Reported History Sister(s) Family Medical History: Cancer General Exam General appearance: alert, in no apparent distress Head exam: Present: atraumatic, normocephalic, normal inspection Eye exam: Present: normal appearance, PERRL, EOMI. Absent: scleral icterus, conjunctival injection, periorbital swelling ENT exam: Present: normal exam, mucous membranes moist Neck exam: Present: normal inspection. Absent: tenderness, meningismus, lymphadenopathy Respiratory exam: Present: normal lung sounds bilaterally. Absent: respiratory distress, wheezes, rales, rhonchi, stridor Cardiovascular Exam: Present: regular rate, normal rhythm, normal heart sounds. Absent: systolic murmur, diastolic murmur, rubs, gallop, clicks GI/Abdominal exam: Present: soft, normal bowel sounds. Absent: distended, tenderness, guarding, rebound, rigid Extremities exam: Present: normal inspection, full ROM, normal capillary refill. Absent: tenderness, pedal edema, joint swelling, calf tenderness Back exam: Present: normal inspection Neurological exam: Present: alert, oriented X3, CN II-XII intact Psychiatric exam: Present: normal affect, normal mood Skin exam: Present: warm, dry, intact, normal color. Absent: rash Course Vital Signs 04/21/20 04:38 Temperature 102.8 F H Pulse Rate 87 Respiratory 19 Rate Blood Pressure 148/81 O2 Sat by Pulse 91 L Oximetry - Reevaluation(s) Reevaluation #1: 04/21/20 06:13 Medical records reviewed Reevaluation #2: 04/21/20 06:13 Patient has fever of unknown origin possible UTI versus bacteremia Reevaluation #3: 04/21/20 06:13 Spoke with family and patient regarding findings - Consultations Consultation #1: Spoke with Dr. Reyes PNA for evaluation, patient will be admitted Medical Decision Making - Medical Decision Making 79 male DF for evaluation of fever of unknown origin possible UTI versus bacteremia, patient will be admitted - Lab Data Result diagrams: 04/21/20 05:04 04/21/20 05:04 Lab Results 04/21/20 04/21/20 04/21/20 Range/Units 05:04 05:04 05:04 WBC 15.1 H (3.8-10.6) k/uL RBC 4.56 (4.30-5.90) m/uL Hgb 13.3 (13.0-17.5) gm/dL Hct 42.0 (39.0-53.0) % MCV 92.0 (80.0-100.0) fL MCH 29.0 (25.0-35.0) pg MCHC 31.6 (31.0-37.0) g/dL RDW 12.9 (11.5-15.5) % Plt Count 173 (150-450) k/uL MPV 7.5 Neutrophils % 91 % Lymphocytes % 2 % Monocytes % 6 % Eosinophils % 1 % Basophils % 0 % Neutrophils # 13.8 H (1.3-7.7) k/uL Lymphocytes # 0.3 L (1.0-4.8) k/uL Monocytes # 0.8 (0-1.0) k/uL Eosinophils # 0.2 (0-0.7) k/uL Basophils # 0.0 (0-0.2) k/uL PT 26.5 H (9.0-12.0) sec INR 2.7 H (<1.2) APTT 30.4 H (22.0-30.0) sec D-Dimer 0.88 H (<0.60) mg/L FEU Sodium 139 (137-145) mmol/L Potassium 4.1 (3.5-5.1) mmol/L Chloride 107 (98-107) mmol/L Carbon Dioxide 24 (22-30) mmol/L Anion Gap 8 mmol/L BUN 26 H (9-20) mg/dL Creatinine 1.16 (0.66-1.25) mg/dL Est GFR (CKD-EPI)AfAm 70 (>60 ml/min/1.73 sqM) Est GFR (CKD-EPI)NonAf 61 (>60 ml/min/1.73 sqM) Glucose 169 H (74-99) mg/dL Plasma Lactic Acid Justino (0.7-2.0) mmol/L Calcium 8.8 (8.4-10.2) mg/dL Magnesium 1.7 (1.6-2.3) mg/dL Total Bilirubin 0.8 (0.2-1.3) mg/dL AST 23 (17-59) U/L ALT 18 (4-49) U/L Alkaline Phosphatase 60 (38-126) U/L Lactate Dehydrogenase 624 H (313-618) U/L C-Reactive Protein 20.5 H (<10.0) mg/L Total Protein 6.3 (6.3-8.2) g/dL Albumin 3.7 (3.5-5.0) g/dL Lipase 79 (23-300) U/L Coronavirus (PCR) (Not Detectd) 04/21/20 04/21/20 Range/Units 05:04 05:11 WBC (3.8-10.6) k/uL RBC (4.30-5.90) m/uL Hgb (13.0-17.5) gm/dL Hct (39.0-53.0) % MCV (80.0-100.0) fL MCH (25.0-35.0) pg MCHC (31.0-37.0) g/dL RDW (11.5-15.5) % Plt Count (150-450) k/uL MPV Neutrophils % % Lymphocytes % % Monocytes % % Eosinophils % % Basophils % % Neutrophils # (1.3-7.7) k/uL Lymphocytes # (1.0-4.8) k/uL Monocytes # (0-1.0) k/uL Eosinophils # (0-0.7) k/uL Basophils # (0-0.2) k/uL PT (9.0-12.0) sec INR (<1.2) APTT (22.0-30.0) sec D-Dimer (<0.60) mg/L FEU Sodium (137-145) mmol/L Potassium (3.5-5.1) mmol/L Chloride (98-107) mmol/L Carbon Dioxide (22-30) mmol/L Anion Gap mmol/L BUN (9-20) mg/dL Creatinine (0.66-1.25) mg/dL Est GFR (CKD-EPI)AfAm (>60 ml/min/1.73 sqM) Est GFR (CKD-EPI)NonAf (>60 ml/min/1.73 sqM) Glucose (74-99) mg/dL Plasma Lactic Acid Justino 1.6 (0.7-2.0) mmol/L Calcium (8.4-10.2) mg/dL Magnesium (1.6-2.3) mg/dL Total Bilirubin (0.2-1.3) mg/dL AST (17-59) U/L ALT (4-49) U/L Alkaline Phosphatase (38-126) U/L Lactate Dehydrogenase (313-618) U/L C-Reactive Protein (<10.0) mg/L Total Protein (6.3-8.2) g/dL Albumin (3.5-5.0) g/dL Lipase (23-300) U/L Coronavirus (PCR) Not Detected (Not Detectd) - EKG Data -: EKG Interpreted by Me (EKG shows history fibrillation 89 QRS 100 QTc 435) Disposition Clinical Impression: Acute kidney injury, Weakness, Multiple sclerosis, Fever Disposition: ADMITTED IP TO THIS HOSP Condition: Fair Is patient prescribed a controlled substance at d/c from ED?: No Referrals: Jieson Reyes MD [Primary Care Provider] - 1-2 days
[2020-04-21 05:16] LABS: Basophils % (A) 0 %; Eosinophils # (A) 0.2 k/uL (0-0.7); Eosinophils % (A) 1 %; HGB 13.3 gm/dL (13.0-17.5); Lymphocytes # (A) 0.3 k/uL (1.0-4.8); Lymphocytes % (A) 2 %; MCHC 31.6 g/dL (31.0-37.0); Mean Platelet Volume 7.5; Monocytes # (A) 0.8 k/uL (0-1.0); Monocytes % (A) 6 %; Neutrophils # (A) 13.8 k/uL (1.3-7.7); Neutrophils % (A) 91 %; Platelet Count 173 k/uL (150-450); RBC 4.56 m/uL (4.30-5.90); RDW 12.9 % (11.5-15.5); WBC 15.1 k/uL (3.8-10.6)
[2020-04-21 05:28] LABS: Albumin 3.7 g/dL (3.5-5.0); C Reactive Protein 20.5 mg/L (<10.0); Calcium 8.8 mg/dL (8.4-10.2); Magnesium 1.7 mg/dL (1.6-2.3); Potassium 4.1 mmol/L (3.5-5.1); Total Bilirubin 0.8 mg/dL (0.2-1.3); Total Protein 6.3 g/dL (6.3-8.2)
[2020-04-21 05:30] LABS: INR 2.7 (<1.2); Partial Thromboplastin Time 30.4 sec (22.0-30.0); Prothrombin Time 26.5 sec (9.0-12.0)
[2020-04-21 05:31] LABS: D-Dimer 0.88 mg/L FEU (<0.60)
[2020-04-21] MEDS ORDERED: MORPHINE SULFATE 4 MG/ML SYRINGE IV PRN (06:10)
[2020-04-21] MEDS ORDERED: NALOXONE 0.4 MG/ML 1 ML VIAL IV PRN (06:10)
[2020-04-21] MEDS: IOPAMIDOL CONTRAST (ORAL USE) VIAL PO PRN ×2 (11:46→12:51)
--- NOTE | 2020-04-21 12:15 | XR ---
EXAMINATION TYPE: XR chest 1V portable DATE OF EXAM: 04/21/2020 Comparison: 04/20/2020 Clinical History: 79-year-old male cough, pneumonia Findings: Leftward patient rotation ultrasound normal cardiomediastinal contours. Left anterior chest wall pace maker generator with right atrial and right ventricular leads. Heart mildly enlarged. Hyperinflation. Mild interstitial prominence is unchanged. Some strandy atelectasis at the left base is similar. Impression: COPD and cardiomegaly. No definite acute change.
--- NOTE | 2020-04-21 14:54 | CT ---
CT CHEST FOR PULMONARY EMBOLISM. EXAMINATION TYPE: CT angio chest DATE OF EXAM: 04/21/2020 INDICATION: Shortness of breath, fever and weakness CT DLP: 245.50 mGycm, Automated exposure control for dose reduction was used. CONTRAST: Patient injected with 100 mL of Isovue 370. COMPARISON: 01/31/2012 TECHNIQUE: CT of the chest is performed on a spiral scan at 2 mm thick sections. Study is performed with intravenous contrast timed for evaluation for pulmonary embolism. This will limit additional po rtions of the evaluation. 3-D MIP images reconstructed by the technologist are reviewed on the compu ter in the coronal and sagittal planes. FINDINGS: No persistent filling defects are evident to suggest an acute pulmonary embolism. No mediastinal or hilar adenopathy enlarged by CT criteria is evident. The ascending aorta diameter at the level of the main pulmonary artery is 3.6 cm. The main pulmonary artery diameter at the bifur cation is 3.1 cm. Minimal right apical thickening is present. Lungs are otherwise clear. Limited CT section through the upper abdomen are unremarkable. IMPRESSIONS: 1. No acute pulmonary embolism.
--- NOTE | 2020-04-21 15:08 | CT ---
EXAMINATION TYPE: CT abdomen pelvis w con DATE OF EXAM: 04/21/2020 COMPARISON: INDICATION: Fever and weakness DLP: 1305.90 mGycm, Automated exposure control for dose reduction was used. CONTRAST: 100 mL of Isovue 370. Study performed with Oral Contrast TECHNIQUE: Axial images were obtained from above the diaphragm to the pubic rami in the axial plane a t 5 mm thick sections. Reconstructed images are reviewed on the computer in the coronal plane. FINDINGS: Limited CT sections are obtained the lung bases. The lung bases are clear. Lung bases are limited. CT ABDOMEN: Lateral to the stomach is a cystlike area. Mesenteric cyst could be considered. This viridiana ures 3.4 cm. Liver: Upper portion of liver is excluded from the [id number]. Spleen: Normal Pancreas: Normal Adrenal glands: The adrenal glands are normal. Gallbladder: Normal Kidneys: No masses are evident. There is a moderate left hydronephrosis. Left hydroureter extends to the urinary bladder. No obstructing ureteral stones are evident. There is a cortical renal cyst on th e left kidney measuring 2.0 cm. Delayed images were obtained through the kidneys, which remain unrem arkable. Aorta: Vascular calcification is within the aorta. There is fusiform prominence of the mid abdominal aorta measuring 3.4 cm AP dimension. This terminates above the bifurcation. The left common iliac ar chidi is somewhat prominent with a transverse dimension of 1.9 cm. Inferior vena cava: Normal. CT PELVIS: Loops of bowel within the abdomen and pelvis are normal. Fecal debris is within the distal colon. There are loops of bowel which are incompletely distended or lack oral contrast limiting their evalua tion. Appendix: Appears to be the appendix is adjacent to the distal ileum and contains contrast. No inflam matory changes or dilated tubular structures are evident. Urinary bladder: Distended. Genitourinary structures: Osseous structures: No suspicious Lytic or sclerotic lesions are evident. Degenerative changes are wi thin the lumbar spine. IMPRESSIONS: 1. Fusiform prominence of the mid abdominal aorta measuring 3.4 cm. There is some prominence of the right common iliac artery. 2. 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 Present previously. 3. Moderate left hydronephrosis with hydroureter. No obstructing etiology identified.
[2020-04-21] MEDS: lisinopriL 20 MG TAB PO SCH (15:35)
[2020-04-21] MEDS: GABAPENTIN 300 MG CAP PO SCH ×2 (15:35→22:26)
[2020-04-21] MEDS: METOPROLOL TARTRATE 50 MG TAB PO SCH (15:35)
[2020-04-21] MEDS: ATORVASTATIN 20 MG TAB PO SCH (15:35)
[2020-04-21] MEDS: BACLOFEN 10 MG TAB PO SCH ×2 (15:35→22:26)
[2020-04-21] MEDS: ISOSORBIDE MONONITRATE ER 60 MG TAB.ER.24H PO SCH (15:36)
[2020-04-21] MEDS: TAMSULOSIN 0.4 MG CAP.ER.24H PO SCH (15:36)
[2020-04-21] MEDS ORDERED: ALPRAZolam 0.25 MG TAB PO PRN (16:17)
[2020-04-21] MEDS ORDERED: HYDROcodone/APAP 5-325MG 1 EACH TAB PO PRN (16:17)
[2020-04-21] MEDS ORDERED: ACETAMINOPHEN TAB 500 MG TAB PO PRN (16:17)
--- NOTE | 2020-04-21 17:23 | HP ---
HISTORY AND PHYSICAL CHIEF COMPLAINTS: Weakness and abdominal fullness. HISTORY OF PRESENT ILLNESS: This 79-year-old gentleman with a past medical history of multiple medical problems, including atrial fibrillation, CVA, TIA, hypertension, hyperlipidemia, history of DJD, history of prostate disorder, history of multiple sclerosis, history of cardiac catheterization, being followed by Dr. Jeison Reyes in the outpatient setting, was recently admitted with pneumonia as well as [id number]-elevation myocardial infarction. Currently the patient is complaining of extreme weakness; unable to even get out of bed. The patient apparently had two ER visits yesterday, and then today because of increasing weakness the patient came back and got admitted for further evaluation and treatment. The patient was evaluated. Initial labs showed some elevated D-dimer, but the CT angio does not show any evidence of pulmonary embolism. CRP and LDH are also elevated. White count is 15.1. 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 No obstructing etiology was identified. Mild fever was noted. There is no headache, loss of consciousness, seizure. No history of any contact with [employer]on[employer]-Evo[employer]ron[employer], either. PAST MEDICAL HISTORY: History of atrial fibrillation, history of CVA, TIA, hypertension, hyperlipidemia, history of DJD, history of prostate disorder, history of multiple sclerosis, history of cardiac catheterization, pacemaker. HOME MEDICATIONS: Coumadin, Flomax, Zocor, Altace, Lopressor, Imdur, Neurontin, Lanoxin, Lioresal, aspirin. ALLERGIES: NONE. FAMILY HISTORY: No history of heart disease or strokes in the family. SOCIAL HISTORY: Previous history of smoking. Occasional alcohol intake. REVIEW OF SYSTEMS: ENT: Diminished hearing. Diminished vision. CARDIOVASCULAR SYSTEM: As mentioned earlier. RESPIRATORY SYSTEM: As mentioned earlier. GI: As mentioned earlier. : No dysuria or retention. Otherwise as mentioned earlier. ALLERGY/IMMUNOLOGY: No asthma, hayfever. MUSCULOSKELETAL: As mentioned earlier. HEMATOLOGY/ONCOLOGY: As mentioned earlier. ENDOCRINE: No history of diabetes, hypothyroidism. CONSTITUTIONAL: As mentioned earlier. DERMATOLOGY: Negative. RHEUMATOLOGY: As mentioned earlier. PSYCHIATRY: As mentioned earlier. NEUROLOGY: As mentioned earlier. PHYSICAL EXAMINATION: Patient is alert and oriented x3. Pulse 68, blood pressure 95/63, respiration 18, temperature 97.6, pulse ox 98% on room air. HEENT: Conjunctivae normal. Oral mucosa moist. NECK: No jugular venous distention. No carotid bruit. No lymph node enlargement. CARDIOVASCULAR SYSTEM: S1, S2 muffled. No S3. No S4. RESPIRATORY SYSTEM: Breath sounds diminished at the bases. No rhonchi. No crackles. ABDOMEN: Soft, non-tender. No mass palpable. LEGS: No edema. No swelling. NERVOUS SYSTEM: Higher functions as mentioned earlier. Moves all 4 limbs. Mild diffuse weakness. No focal motor or sensory deficit. LYMPHATICS: No lymph node palpable in neck, axillae or groin. SKIN: No ulcer, rash, bleeding. JOINTS: No active deforming arthropathy. LABS: WBC 15.1. INR is 2.7. BUN is 26 and glucose 169. LDH is 624. CRP is 20.5. ASSESSMENT: 1. Diffuse weakness for evaluation. Rule out urinary tract infection. 2. Increased white count. 3. Elevated D-dimer without any evidence of pulmonary embolism. 4. Rule out COVID-19. 5. Elevated LDH and CRP. 6. Fusiform prominence of the mid abdominal aorta, about 3.4 cm. 7. Moderate left hydronephrosis with hydroureter with no obstructing etiology. 8. History of atrial fibrillation, chronic. 9. History of cerebrovascular accident, transient ischemic attack. 10.Coumadin monitoring. 11.Hyperlipidemia. 12.Hypertension. 13.History of degenerative joint disease. 14.History of prostate disorder. 15.History of hypothyroidism. 16.Multiple sclerosis. 17.History of prostate cancer with radiation. 18.History of pacemaker. 19.History of back surgery. 20.History of cardiac catheterization. 21.FULL CODE. RECOMMENDATIONS AND DISCUSSION: In this 79-year-old gentleman who presented with multiple complex medical issues, at this time I recommend continuing the current medications, continue symptomatic treatment. Otherwise I recommend UA with micro. I would also recommend to continue with empiric antibiotics. Resume the home medications. Orthostatic vitals. Other than that, PT/OT evaluation. COVID-19 has been requested as a sendout. Guarded prognosis because of multiple complex medical issues. Further recommendations to follow. Will initiate Coumadin per pharmacy protocol also. Prognosis guarded because of multiple complex medical issues. Discussed with the patient, who understands and agrees. A copy of this dictation is being forwarded to Dr. Reyes, who is the primary physician. MMODL / IJN: [id number] /
[2020-04-21] MEDS ORDERED: WARFARIN 1.25 MG TAB PO ONE (18:00)
[2020-04-21] MEDS: DIGOXIN 125 MCG TAB PO SCH (22:26)
[2020-04-22 07:12] LABS: Basophils % (A) 0 %; Eosinophils % (A) 0 %; HCT 35.5 % (39.0-53.0); HGB 11.8 gm/dL (13.0-17.5); Lymphocytes # (A) 0.6 k/uL (1.0-4.8); Lymphocytes % (A) 5 %; MCH 30.4 pg (25.0-35.0); MCHC 33.1 g/dL (31.0-37.0); MCV 91.9 fL (80.0-100.0); Mean Platelet Volume 7.8; Monocytes # (A) 0.9 k/uL (0-1.0); Monocytes % (A) 9 %; Neutrophils # (A) 9.4 k/uL (1.3-7.7); Neutrophils % (A) 85 %; Platelet Count 126 k/uL (150-450); RBC 3.86 m/uL (4.30-5.90); RDW 12.8 % (11.5-15.5)
[2020-04-22] MEDS: PANTOPRAZOLE 40 MG TABLET PO SCH (08:16)
[2020-04-22] MEDS: BACLOFEN 10 MG TAB PO SCH ×3 (08:16→23:00)
[2020-04-22] MEDS: ASPIRIN 81 MG PO SCH (08:16)
[2020-04-22] MEDS: GABAPENTIN 300 MG CAP PO SCH ×3 (08:17→23:00)
[2020-04-22] MEDS: TAMSULOSIN 0.4 MG CAP.ER.24H PO SCH ×2 (08:17→17:37)
[2020-04-22 08:23] LABS: INR 2.6 (<1.2); Prothrombin Time 25.3 sec (9.0-12.0)
[2020-04-22] MEDS: METOPROLOL TARTRATE 50 MG TAB PO SCH ×2 (08:25→17:38)
[2020-04-22 16:41] LABS: Amorphous Sediment,Urine Rare /hpf; Appearance,Urine Clear (Clear); Bacteria,Urine Rare /hpf; Bilirubin,Urine Negative (Negative); Blood,Urine Trace (Negative); Color,Urine Yellow; Glucose,Urine (UA) Negative (Negative); Ketones,Urine Negative (Negative); Leukocyte Esterase,Urine Moderate (Negative); Mucus,Urine Rare /hpf; Nitrite,Urine Negative (Negative); PH, Urine 5.5 (5.0-8.0); Protein,Urine Trace (Negative); RBC,Urine 9 /hpf (0-5); Specific Gravity,Urine 1.026 (1.001-1.035); Urobilinogen,Urine <2.0 mg/dL (<2.0); WBC,Urine 56 /hpf (0-5)
[2020-04-22 17:34] LABS: African American GFR (CKD) 67.2 (60.0-200.0); Albumin 3.5 g/dL (3.80-4.90); Albumin/Globulin Ratio 2.06 (1.60-3.17); Anion Gap 7.5 mmol/L (4.00-12.00); BUN/Creat Ratio 18.33 Ratio (12.00-20.00); Calcium 8.2 mg/dL (8.7-10.3); Carbon Dioxide 25.5 mmol/L (21.6-31.8); Globulin 1.7 g/dL (1.6-3.3); Magnesium 1.8 mg/dL (1.5-2.4); Phosphorus 2.4 mg/dL (2.4-5.1); Total Bilirubin 0.5 mg/dL (0.2-1.2); Total Protein 5.2 g/dL (6.2-8.2)
[2020-04-22] MEDS: lisinopriL 20 MG TAB PO SCH (17:37)
[2020-04-22] MEDS: ATORVASTATIN 20 MG TAB PO SCH (17:37)
[2020-04-22] MEDS ORDERED: WARFARIN 2 MG TAB PO ONE (18:00)
--- NOTE | 2020-04-22 18:20 | PN ---
PROGRESS NOTE I am covering for Dr. Reyes. DATE OF SERVICE: 04/22/2020 This 79-year-old gentleman admitted with significant weakness and abdominal fullness is being closely monitored at this time. The patient had features of UTI. COVID-19 is negative twice. WBC is 11, slightly improved after the antibiotics. No chest pain. No palpitation. PHYSICAL EXAMINATION: Alert and oriented x3. Pulse is 70, blood pressure 149/69, respiration 20, temperature 97.2, pulse ox 96% on 2 L. HEENT: Conjunctivae normal. NECK: No jugular venous distention. CARDIOVASCULAR SYSTEM: S1, S2 muffled. RESPIRATORY SYSTEM: Breath sounds diminished at the bases. A few scattered rhonchi. ABDOMEN: Soft. NERVOUS SYSTEM: Mild diffuse weakness. LABS: WBC 11, hemoglobin 11.8. INR is 2.6. COVID-19 negative. ASSESSMENT: 1. Diffuse weakness, possible acute urinary tract infection, with possible sepsis, present on admission. 2. Increased white count. 3. Elevated D-dimer without any evidence of pulmonary embolism. 4. COVID-19 ruled out. 5. Elevated LDH and CRP. 6. Fusiform prominence of the mid abdominal aorta about 3.[address] scan. 7. Moderate left hydronephrosis with hydroureter with no obstructing etiology, present on admission. 8. History of atrial fibrillation, chronic. 9. History of cerebrovascular accident, transient ischemic attack. 10.Coumadin monitoring. 11.Hyperlipidemia. 12.Hypertension. 13.History of degenerative joint disease. 14.History of prostate disorder. 15.History of hypothyroidism. 16.Multiple sclerosis history. 17.History of prostate cancer with radiation. 18.History of pacemaker. 19.History of back surgery. 20.History of cardiac catheterization. 21.FULL CODE. RECOMMENDATIONS AND DISCUSSION: I recommend to continue current medications, continue with the monitoring, symptomatic treatment. I would also recommend urology evaluation for the hydronephrosis which was observed. Otherwise, continue the empiric antibiotics. Continue the rest of the medications. PT/OT evaluation. Consider possible ECF rehab. Coumadin per Pharmacy. Monitor PT, INR closely. Guarded prognosis. Further recommendations to follow. MMODL / IJN: [id number] /
[2020-04-22] MEDS: ISOSORBIDE MONONITRATE ER 60 MG TAB.ER.24H PO SCH (23:00)
[2020-04-22] MEDS: DIGOXIN 125 MCG TAB PO SCH (23:00)
[2020-04-23 05:48] LABS: Basophils % (A) 0 %; Eosinophils # (A) 0.1 k/uL (0-0.7); Eosinophils % (A) 2 %; HCT 38.6 % (39.0-53.0); HGB 12.2 gm/dL (13.0-17.5); Lymphocytes # (A) 0.7 k/uL (1.0-4.8); Lymphocytes % (A) 8 %; MCH 28.8 pg (25.0-35.0); MCHC 31.7 g/dL (31.0-37.0); Mean Platelet Volume 7.6; Monocytes # (A) 0.9 k/uL (0-1.0); Monocytes % (A) 10 %; Neutrophils # (A) 7.4 k/uL (1.3-7.7); Neutrophils % (A) 79 %; Platelet Count 139 k/uL (150-450); RBC 4.24 m/uL (4.30-5.90); RDW 13.1 % (11.5-15.5); WBC 9.4 k/uL (3.8-10.6)
[2020-04-23 05:57] LABS: INR 2.2 (<1.2)
[2020-04-23] MEDS: BACLOFEN 10 MG TAB PO SCH ×3 (08:52→21:38)
[2020-04-23] MEDS: TAMSULOSIN 0.4 MG CAP.ER.24H PO SCH ×2 (08:52→17:13)
[2020-04-23] MEDS: ASPIRIN 81 MG PO SCH (08:52)
[2020-04-23] MEDS: METOPROLOL TARTRATE 50 MG TAB PO SCH ×2 (08:52→17:16)
[2020-04-23] MEDS: GABAPENTIN 300 MG CAP PO SCH ×3 (08:52→21:38)
[2020-04-23] MEDS: PANTOPRAZOLE 40 MG TABLET PO SCH (08:52)
[2020-04-23 09:44] LABS: Anion Gap 7.8 mmol/L (4.00-12.00); BUN/Creat Ratio 15.38 Ratio (12.00-20.00); Calcium 8.4 mg/dL (8.7-10.3); Carbon Dioxide 27.2 mmol/L (21.6-31.8); Non-African American GFR(CKD) 52.6 (60.0-200.0); Potassium 4.1 mmol/L (3.5-5.5)
[2020-04-23] MEDS: ATORVASTATIN 20 MG TAB PO SCH (17:16)
[2020-04-23] MEDS: lisinopriL 20 MG TAB PO SCH (17:16)
--- NOTE | 2020-04-23 17:23 | P.GSCN ---
History of Present Illness Consult date: 04/23/20 Reason for Consult: Left hydronephrosis, prostate cancer Requesting physician: Rip Martinez History of present illness: The patient is a 79-year-old white male well known to our practice, having been followed by Dr. Bryant for many years. He was diagnosed with [place] 8 prostate cancer in late 2014, and was treated with external beam radiation therapy in 2 years of androgen deprivation therapy. His most recent PSA level was 0.91 in August 2019. He is known to empty his bladder incompletely and takes tamsulosin for this reason. He was last seen in the office in February 2020, at which time bladder scan showed a bladder volume of 453 mL approximately one hour after voiding. He is now admitted with fever and weakness. UA suggests a possible UTI. CT scan shows bladder distention and moderate left hydroureteronephrosis Review of Systems - Constitutional Reports chills, Reports fever, Reports weakness - Gastrointestinal Denies nausea, Denies vomiting - Genitourinary Denies dysuria, Denies flank pain, Denies hematuria Past Medical History Past Medical History: Atrial Fibrillation, Cancer, CVA/TIA, Hyperlipidemia, Hypertension, Osteoarthritis (OA), Prostate Disorder, Thyroid Disorder Additional Past Medical History / Comment(s): MS, hx. prostate cancer 2014-had radiation. Generator change-01/14/2019 PACEMAKER ONLY, NO DEFIBRILLATOR Last Myocardial Infarction Date:: unk DATE History of Any Multi-Drug Resistant Organisms: None Reported Past Surgical History: Back Surgery, Heart Catheterization, Hernia Repair, Pacemaker Additional Past Surgical History / Comment(s): PACEMAKER, Generator change- 01/14/2019 Past Anesthesia/Blood Transfusion Reactions: No Reported Reaction Type of Cardiac Device: Permanent Pacemaker Device Placement Date:: 05/02/11 Past Psychological History: No Psychological Hx Reported Smoking Status: Never smoker Past Alcohol Use History: Occasional Additional Past Alcohol Use History / Comment(s): STARTED SMOKING AT AGE 20 quit smoking 1992, smoked 1ppd Past Drug Use History: None Reported - Past Family History Mother Family Medical History: No Reported History Sister(s) Family Medical History: Cancer Medications and Allergies Home Medications Medication Instructions Recorded Confirmed Type Aspirin 81 mg PO DAILY@0700 09/02/13 04/21/20 History Baclofen [Lioresal] 10 mg PO TID@0700,1500,2300 09/02/13 04/21/20 History Digoxin [Lanoxin] 125 mcg PO HS@229909/02/13 04/21/20 History Isosorbide Mononitrate [Imdur] 60 mg PO HS@229909/02/13 04/21/20 History Ramipril [Altace] 10 mg PO DAILY@182909/02/13 04/21/20 History Simvastatin [Zocor] 40 mg PO HS@182909/02/13 04/21/20 History Warfarin [Coumadin] 2.5 mg PO SUTH@182909/02/13 04/21/20 History Warfarin [Coumadin] 1.25 mg PO MOTUWEFRSA@182903/06/18 04/21/20 History Tamsulosin [Flomax] 0.4 mg PO BID@0700,182909/03/19 04/21/20 History Gabapentin [Neurontin] 300 mg PO TID@0700,1500,229904/20/20 04/21/20 History Metoprolol Tartrate [Lopressor] 50 mg PO BID@0700,182904/20/20 04/21/20 History Allergies Allergy/AdvReac Type Severity Reaction Status Date / Time No Known Allergies Allergy Verified 04/21/20 06:53 Surgical - Exam Vital Signs Temp Pulse Resp BP Pulse Ox 102.8 F H 87 19 148/81 91 L 04/21/20 04:38 04/21/20 04:38 04/21/20 04:38 04/21/20 04:38 04/21/20 04:38 - General well developed, well nourished, no distress - Respiratory normal respiratory effort - Abdomen Abdomen: soft, non tender, no guarding, no rigid, no rebound - Genitourinary normal penis with no external lesions, testicles non-tender - Psychiatric oriented to time, oriented to person, oriented to place, speech is normal, memory intact Results - Labs 04/23/20 05:33 04/23/20 05:33 Abnormal Lab Results - Last 24 Hours (Table) 04/22/20 04/22/20 04/23/20 Range/Units 06:25 13:30 05:33 RBC (4.30-5.90) m/uL Hgb (13.0-17.5) gm/dL Hct (39.0-53.0) % Plt Count (150-450) k/uL Lymphocytes # (1.0-4.8) k/uL PT 21.0 H (9.0-12.0) sec INR 2.2 H (<1.2) Est GFR (CKD-EPI)NonAf 58.0 L (60.0-200.0) Glucose 121 H (70-110) mg/dL Calcium 8.2 L (8.7-10.3) mg/dL Total Protein 5.2 L (6.2-8.2) g/dL Albumin 3.50 L (3.80-4.90) g/dL Urine Protein Trace H (Negative) Urine Blood Trace H (Negative) Ur Leukocyte Esterase Moderate H (Negative) Urine RBC 9 H (0-5) /hpf Urine WBC 56 H (0-5) /hpf Amorphous Sediment Rare H (None) /hpf Urine Bacteria Rare H (None) /hpf Urine Mucus Rare H (None) /hpf 04/23/20 04/23/20 Range/Units 05:33 05:33 RBC 4.24 L (4.30-5.90) m/uL Hgb 12.2 L (13.0-17.5) gm/dL Hct 38.6 L (39.0-53.0) % Plt Count 139 L (150-450) k/uL Lymphocytes # 0.7 L (1.0-4.8) k/uL PT (9.0-12.0) sec INR (<1.2) Est GFR (CKD-EPI)NonAf 52.6 L (60.0-200.0) Glucose 115 H (70-110) mg/dL Calcium 8.4 L (8.7-10.3) mg/dL Total Protein (6.2-8.2) g/dL Albumin (3.80-4.90) g/dL Urine Protein (Negative) Urine Blood (Negative) Ur Leukocyte Esterase (Negative) Urine RBC (0-5) /hpf Urine WBC (0-5) /hpf Amorphous Sediment (None) /hpf Urine Bacteria (None) /hpf Urine Mucus (None) /hpf Microbiology - Last 24 Hours (Table) 04/21/20 05:04 Blood Culture - Preliminary Blood No Growth after 48 hours Diabetes panel 04/22/20 04/23/20 Range/Units 06:25 05:33 Sodium 142 140 (135-145) mmol/L Potassium 4.0 4.1 (3.5-5.5) mmol/L Chloride 109 105 (96-109) mmol/L Carbon Dioxide 25.5 27.2 (21.6-31.8) mmol/L BUN 22.0 20.0 (9.0-27.0) mg/dL Creatinine 1.2 1.3 (0.6-1.5) mg/dL Glucose 121 H 115 H (70-110) mg/dL Calcium 8.2 L 8.4 L (8.7-10.3) mg/dL AST 20 (14-35) U/L ALT 13 (10-49) U/L Alkaline Phosphatase 50 (41-126) U/L Total Protein 5.2 L (6.2-8.2) g/dL Albumin 3.50 L (3.80-4.90) g/dL Calcium panel 04/22/20 04/23/20 Range/Units 06:25 05:33 Calcium 8.2 L 8.4 L (8.7-10.3) mg/dL Phosphorus 2.4 (2.4-5.1) mg/dL Albumin 3.50 L (3.80-4.90) g/dL Pituitary panel 04/22/20 04/23/20 Range/Units 06:25 05:33 Sodium 142 140 (135-145) mmol/L Potassium 4.0 4.1 (3.5-5.5) mmol/L Chloride 109 105 (96-109) mmol/L Carbon Dioxide 25.5 27.2 (21.6-31.8) mmol/L BUN 22.0 20.0 (9.0-27.0) mg/dL Creatinine 1.2 1.3 (0.6-1.5) mg/dL Glucose 121 H 115 H (70-110) mg/dL Calcium 8.2 L 8.4 L (8.7-10.3) mg/dL Adrenal panel 04/22/20 04/23/20 Range/Units 06:25 05:33 Sodium 142 140 (135-145) mmol/L Potassium 4.0 4.1 (3.5-5.5) mmol/L Chloride 109 105 (96-109) mmol/L Carbon Dioxide 25.5 27.2 (21.6-31.8) mmol/L BUN 22.0 20.0 (9.0-27.0) mg/dL Creatinine 1.2 1.3 (0.6-1.5) mg/dL Glucose 121 H 115 H (70-110) mg/dL Calcium 8.2 L 8.4 L (8.7-10.3) mg/dL Total Bilirubin 0.5 (0.2-1.2) mg/dL AST 20 (14-35) U/L ALT 13 (10-49) U/L Alkaline Phosphatase 50 (41-126) U/L Total Protein 5.2 L (6.2-8.2) g/dL Albumin 3.50 L (3.80-4.90) g/dL - Imaging CT scan - abdomen: report reviewed, image reviewed Assessment and Plan (1) Malignant neoplasm of prostate Current Visit: Yes Status: Acute Code(s): C61 - MALIGNANT NEOPLASM OF PROSTATE SNOMED Code(s): 375261329 (2) Unspecified hydronephrosis Current Visit: Yes Status: Acute Code(s): N13.30 - UNSPECIFIED HYDRONEPHROSIS SNOMED Code(s): 65527053 (3) Incomplete bladder emptying Current Visit: Yes Status: Acute Code(s): R33.9 - RETENTION OF URINE, UNSPECIFIED SNOMED Code(s): 555525267 Plan: The patient's PSA level is stable and acceptably low, so I do not suspect recurrent prostate cancer. He is receiving Rocephin, pending the final urine culture result. I agree with Mendenhall catheter placement, as bladder distention made be the cause of the left hydronephrosis, which has increased since the CT scan in January 2019. Arrangements will be made for Mr. Peralta to undergo a renal ultrasound in 1-2 weeks to confirm resolution of the hydronephrosis. If it fails to resolve, he may be advised to undergo cystoscopy with left retrograde pyelogram. Time with Patient: Greater than 30
[2020-04-23] MEDS ORDERED: WARFARIN 2 MG TAB PO ONE (18:00)
--- NOTE | 2020-04-23 18:00 | PN ---
PROGRESS NOTE I am covering for Dr. Reyes. DATE OF SERVICE: 04/23/2020. This 79 -year-old gentleman admitted with significant weakness and abdominal fullness possibly had UTI with sepsis. The patient also had history of urinary retention. Patient has taken Flomax 0.4 twice daily, Mendenhall catheter has been inserted. No chest pain. No palpitations. No shortness of breath. PHYSICAL EXAMINATION: Alert and oriented x3. Pulse 66. Blood pressure 159/88, respiration 16, temperature 98.3, pulse ox 94% on room air. HEENT: Conjunctivae normal. NECK: No JVD. CARDIOVASCULAR: S1, S2 muffled. RESPIRATORY SYSTEM: Breath sounds diminished at the bases. ABDOMEN: Soft, nontender. Nervous system: Mild diffuse weakness. LAB STUDIES: WBC 9.2, hemoglobin 12.2, INR 2.2, and calcium is 8.4. UA noted. Cultures are pending. Covid 19 is negative. ASSESSMENT: 1. Acute urinary tract infection with sepsis present on admission with diffuse weakness. 2. Increased WBC. 3. Possible urinary obstruction. 4. Elevated D-dimer with no evidence of pulmonary embolism, possibly secondary to sepsis. 5. COVID-19 ruled out. 6. Elevated LDH and CRP. 7. Fusiform prominence of the mid abdominal aortic aneurysm about 3.[address] scan. 8. Moderate left hydronephrosis with hydroureter with no obstructive etiology, present on admission. 9. History of atrial fibrillation, chronic. 10.History of cerebrovascular accident, transient ischemic attack. 11.Coumadin monitoring. 12.Hyperlipidemia. 13.Hypertension. 14.History of degenerative joint disease. 15.History of prostate disorder. 16.History of hypothyroidism. 17.Multiple sclerosis history. 18.History of prostate cancer with radiation. 19.History of pacemaker. 20.History of back surgery. 21.History of cardiac catheterization. 22.FULL CODE. RECOMMENDATIONS AND DISCUSSION: Recommend to continue current medications, management and symptomatic treatment. Continue the antibiotics. The patient is still weak, somewhat. Continue with PT/OT evaluation, possible ECF rehab and plan to follow up with Dr. Reyes on Sunday. Guarded prognosis. Further recommendations to follow. MMODL / IJN: [id number] /
[2020-04-23] MEDS: DIGOXIN 125 MCG TAB PO SCH (21:38)
[2020-04-23] MEDS: ISOSORBIDE MONONITRATE ER 60 MG TAB.ER.24H PO SCH (21:38)
[2020-04-24 04:02] LABS: Basophils % (A) 0 %; Eosinophils # (A) 0.2 k/uL (0-0.7); Eosinophils % (A) 3 %; HCT 37.2 % (39.0-53.0); HGB 12.3 gm/dL (13.0-17.5); Lymphocytes # (A) 0.7 k/uL (1.0-4.8); Lymphocytes % (A) 10 %; MCH 29.7 pg (25.0-35.0); MCV 90.1 fL (80.0-100.0); Mean Platelet Volume 7.6; Monocytes # (A) 0.7 k/uL (0-1.0); Monocytes % (A) 10 %; Neutrophils # (A) 5.6 k/uL (1.3-7.7); Neutrophils % (A) 75 %; Platelet Count 123 k/uL (150-450); RBC 4.13 m/uL (4.30-5.90); RDW 12.6 % (11.5-15.5); WBC 7.5 k/uL (3.8-10.6)
[2020-04-24 06:44] LABS: Prothrombin Time 23.5 sec (9.0-12.0)
[2020-04-24 06:45] LABS: INR 2.4 (<1.2)
[2020-04-24] MEDS: METOPROLOL TARTRATE 50 MG TAB PO SCH ×2 (07:23→17:24)
[2020-04-24] MEDS: ASPIRIN 81 MG PO SCH (07:23)
[2020-04-24] MEDS: PANTOPRAZOLE 40 MG TABLET PO SCH (07:23)
[2020-04-24] MEDS: GABAPENTIN 300 MG CAP PO SCH ×3 (07:23→22:17)
[2020-04-24] MEDS: BACLOFEN 10 MG TAB PO SCH ×3 (07:23→22:17)
[2020-04-24] MEDS: TAMSULOSIN 0.4 MG CAP.ER.24H PO SCH ×2 (07:23→17:24)
[2020-04-24 09:32] LABS: African American GFR (CKD) 67.2 (60.0-200.0); Calcium 8.3 mg/dL (8.7-10.3); Potassium 4.2 mmol/L (3.5-5.5)
--- NOTE | 2020-04-24 16:49 | PN ---
PROGRESS NOTE DATE OF SERVICE: 04/24/2020. I am covering for Dr. Reyes. This 79-year-old gentleman who was admitted with multiple medical issues, including weakness also possible UTI, sepsis, urine culture showed Staph hemolyticus. No chest pain. No palpitations. No fever. ECF rehab is being planned. PHYSICAL EXAMINATION: On exam, alert and oriented x3. Pulse 60. Blood pressure 106/57, respiration 20, temperature 97.9, pulse ox 94% on room air. HEENT: Conjunctivae normal. NECK: No JVD. RESPIRATORY SYSTEM: Breath sounds diminished at the bases. No rhonchi. No crackles. ABDOMEN: Soft, nontender. No mass palpable. LEGS: No edema. No swelling. Nervous System: No focal deficits. LABS: WBC 7.2, hemoglobin 12.3, INR is 2.4. ASSESSMENT: 1. Acute urinary tract infection with sepsis present on admission with staph hemolyticus. 2. Diffuse weakness. 3. Increased WBC present on admission. 4. Possible urinary obstruction on indwelling Mendenhall catheter. 5. Elevated D-dimer with no evidence of pulmonary embolism, possibly secondary to sepsis. 6. COVID-19 ruled out. 7. Elevated LDH and CRP. 8. Fusiform prominence of the mid part of the abdominal aortic aneurysm 3.[address] scan. 9. Moderate left hydronephrosis with hydroureter with no obstructive etiology present on admission. 10.History of atrial fibrillation, chronic. 11.History of cerebrovascular accident, transient ischemic attack. 12.Coumadin monitoring. 13.Hyperlipidemia. 14.Hypertension. 15.History of degenerative joint disease. 16.History of prostate disorder. 17.History of hypothyroidism. 18.Multiple sclerosis. 19.History of prostate cancer, radiation. 20.History of pacemaker. 21.History of back surgery. 22.History of cardiac catheterization. 23.FULL CODE. RECOMMENDATIONS AND DISCUSSION: I recommend to continue current management. Continue with antibiotics. Otherwise, urology has seen the patient and recommends continue antibiotics. Otherwise Mendenhall catheter and renal ultrasound in 1-2 weeks and continued followup in the outpatient setting, including a cystoscopy and left retrograde pyelogram. Otherwise, we will monitor closely. PT/OT evaluation and possible ECF rehab. Further recommendations to follow. MMODL / IJN: [id number] /
[2020-04-24 16:58] LABS: Appearance,Urine Clear (Clear); Bacteria,Urine Few /hpf; Bilirubin,Urine Negative (Negative); Blood,Urine Large (Negative); Color,Urine Yellow; Glucose,Urine (UA) Negative (Negative); Ketones,Urine Negative (Negative); Leukocyte Esterase,Urine Large (Negative); Mucus,Urine Rare /hpf; Nitrite,Urine Negative (Negative); Protein,Urine Trace (Negative); RBC,Urine >182 /hpf (0-5); Specific Gravity,Urine 1.015 (1.001-1.035); Urobilinogen,Urine <2.0 mg/dL (<2.0); WBC,Urine 52 /hpf (0-5)
[2020-04-24] MEDS: lisinopriL 20 MG TAB PO SCH (17:24)
[2020-04-24] MEDS ORDERED: WARFARIN 1.25 MG TAB PO ONE (18:00)
[2020-04-24] MEDS: ISOSORBIDE MONONITRATE ER 60 MG TAB.ER.24H PO SCH (22:17)
--- NOTE | 2020-04-24 23:41 | CONS ---
CONSULTATION DATE OF SERVICE: 04/24/2020 REASON FOR CONSULTATION: Complicated urinary tract infection. HISTORY OF PRESENT ILLNESS: The patient is a 79-year-old male with a past medical history significant for prostate cancer diagnosed in 2014. The patient is status post radiation and antigen deprivation therapy. The patient presented to [facility] on April 21, 2020 for evaluation of generalized weakness and some fever and chills. The patient symptoms had been going on for a few days before presentation to hospital. The patient complaining of urinary frequency and has been urinating a small amount of urine with each attempt of urination. The patient was diagnosed with urine outflow obstruction with bladder infection, status post Mendenhall catheter placement. Patient on presentation to the hospital did have a fever of 102.8 degrees Fahrenheit. The patient did have white count of 11,000. He did have a positive UA. The patient was admitted to the hospital. He was started on Rocephin. Urine has been finalized Streptococcus haemolyticus multidrug resistant with vancomycin . Infectious Disease was consulted for further management of antibiotic therapy. The patient did have a CT angiogram of the chest, which was negative for PE. CT chest abdominal wall suggestive of left-sided hydronephrosis. Urology has seen the patient and planning for an outpatient ultrasound and need for cystoscopy and left ureterogram if the hydronephrosis persist. REVIEW OF SYSTEMS: Positive points have been mentioned in HPI. Rest of systems are negative. PAST MEDICAL HISTORY: His past medical history significant for atrial fibrillation, prostate cancer, CVA, TIA, hypertension, hyperlipidemia, hypothyroidism. PAST SURGICAL HISTORY: Back surgery, PTCA with stent, hernia repair, pacemaker placement. SOCIAL HISTORY: No history of smoking. Occasionally drinks. No drug use. FAMILY HISTORY: No pertinent findings noticed. ALLERGIES: No known drug allergies. MEDICATIONS: Include the patient is currently on Tylenol, [place], Xanax, aspirin, baclofen, digoxin, Neurontin, Imdur, Zestril, Lopressor, morphine sulfate, Narcan, Protonix, Flomax and Rocephin. PHYSICAL EXAMINATION: Blood pressure 155/75 with a pulse of 72, temperature 98.1 degrees. He is 97% on room air. General description is an elderly male lying in bed in no distress. No tachypnea or accessory muscle of respiration use. HEENT: Shows pallor. No scleral icterus. Oral mucous membranes dry. No pharyngeal erythema or thrush. Neck: Trachea central. No thyromegaly. Lungs unlabored breathing. Clear to auscultation anteriorly. No wheeze or crackles. Heart S1, S2. Regular rate and rhythm. ABDOMEN: Soft, no tenderness. No rigidity. Extremities: No edema of the feet. SKIN examination: No rash or mass palpable. NEUROLOGICAL: The patient is awake, alert, oriented times three. Mood and affect normal. LAB: White count 7.5, BUN of 18, creatinine 01.2. DIAGNOSTIC IMPRESSION AND PLAN: Patient admitted to hospital with sepsis in this patient who did have a fever, elevated white count source is likely complicated UTI. This patient did have a history of prostate cancer with evidence of left hydronephrosis on the CT with urine showing negative Staph epi with vancomycin DEBRA of 2. PLAN: 1. We will repeat his urine culture. 2. Discontinue Rocephin. 3. Start the patient daptomycin 4 mg/kg daily. 4. We will follow on clinical condition and repeat culture to further adjust medication if needed. Thank you for this consultation. Will follow this patient along with you. MMODL / IJN: [id number] /
[2020-04-25] MEDS: TAMSULOSIN 0.4 MG CAP.ER.24H PO SCH ×2 (08:46→17:36)
[2020-04-25] MEDS: PANTOPRAZOLE 40 MG TABLET PO SCH (08:46)
[2020-04-25] MEDS: GABAPENTIN 300 MG CAP PO SCH ×3 (08:47→22:15)
[2020-04-25] MEDS: BACLOFEN 10 MG TAB PO SCH ×3 (08:47→22:15)
[2020-04-25] MEDS: METOPROLOL TARTRATE 50 MG TAB PO SCH ×2 (08:47→17:36)
[2020-04-25] MEDS: ASPIRIN 81 MG PO SCH (08:48)
--- NOTE | 2020-04-25 09:20 | P.PN ---
Progress Note - Text Progress Note Date: 04/25/20 The Mendenhall catheter continues to drain clear yellow urine. The patient denies flank pain. He is afebrile. Urine culture has shown staph haemolyticus, for which he is currently receiving daptomycin. Given the potentially complicated nature of the UTI, a renal ultrasound will be obtained tomorrow to confirm improvement/resolution of the left hydronephrosis with Mendenhall catheter drainage.
[2020-04-25 10:07] LABS: INR 2.34 (0.90-1.11); Prothrombin Time 23.7 sec (9.9-11.9)
--- NOTE | 2020-04-25 13:08 | US ---
EXAMINATION TYPE: US kidneys/renal and bladder DATE OF EXAM: 04/25/2020 COMPARISON: CT CLINICAL HISTORY: Hydronephrosis. fever, weakness EXAM MEASUREMENTS: Right Kidney: 12.3 x 6.0 x 5.4 cm Left Kidney: 10.6 x 6.4 x 4.3 cm Post Void Residual Volume: not assessed on inpatient and with indwelling bladder catheter Right Kidney: lobular cortex mid lateral pole, couple of renal cysts seen with larger cyst = 2.2 x 2. 3 x 2.0cm; hyperechoic, parallel vascular vessel adams are seen Left Kidney: multiple renal cysts noted throughout with largest at mid pole = 2.8 x 1.9 x 2.3cm Bladder: Indwelling bladder catheter is noted within distended bladder A few scattered simple-appearing thin-walled cysts throughout both kidneys redemonstrated. Increased Cortical thinning left kidney redemonstrated. No hydronephrosis seen bilaterally. Mendenhall catheter with in bladder which is not collapsed. IMPRESSION: No hydronephrosis evident bilaterally.
--- NOTE | 2020-04-25 14:59 | PN ---
PROGRESS NOTE DATE OF SERVICE: 04/25/2020 I am covering for Dr. Reyes. HISTORY OF PRESENT ILLNESS: This is a 79-year-old gentleman who was admitted with acute UTI and sepsis. He had multiple organisms including staph hemolyticus. The patient also had abdominal and bladder ultrasound that showed no hydronephrosis at this time. The patient is currently on daptomycin. Patient closely monitored. Patient also complained of generalized weakness. PAST MEDICAL HISTORY: Reviewed. REVIEW OF SYSTEMS: No obtained. PHYSICAL EXAMINATION: GENERAL: Patient is alert and oriented times three. VITAL SIGNS: Pulse 61, blood pressure 101/60, respirations 18, temperature 97.8, pulse ox 96% on room air. HEENT: Conjunctivae normal. NECK: No jugular venous distention. No carotid bruits. No lymph node enlargement. RESPIRATORY: Breath sounds diminished at the bases. No rhonchi, no crackles. HEART: S1 and S2, muffled. ABDOMEN: Soft, no tenderness. No masses palpable. EXTREMITIES: No edema, no swelling. NERVOUS: Diffusely weak. LAB: WBC 7.2, hemoglobin 12.3, INR 2.34. UA noted. ASSESSMENT: 1. Acute urinary tract infection with sepsis present on admission with staph hemolyticus on daptomycin IV. 2. Diffuse weakness. 3. Increased WBC present on admission. 4. Possible urinary obstruction on indwelling Mendenhall catheter. 5. Elevated D-dimer with no evidence of pulmonary embolism, possibly secondary to sepsis. 6. COVID-19 ruled out. 7. Elevated LDH and CRP. 8. Fusiform prominence of the midportion of the abdominal aortic aneurysm 3.[address] scan. 9. Moderate left hydronephrosis with hydroureter with no obstruction etiology present in the CT scan. 10.History of atrial fibrillation, chronic. 11.History of cerebrovascular accident, transient ischemic attack. 12.Coumadin monitoring. 13.Hyperlipidemia. 14.Hypertension. 15.History of degenerative joint disease. 16.History of prostate disorder and prostate cancer radiation. 17.History of hypothyroidism. 18.Multiple sclerosis history. 19.History of pacemaker. 20.History of back surgery. 21.History of cardiac catheterization. 22.FULL CODE. RECOMMENDATIONS AND DISCUSSION: Recommend to continue current management and symptomatic treatment. Continue with IV daptomycin. PT OT evaluation, possible ECF rehab. Closely follow with Infectious Disease and Urology outpatient. Further urology workup as an outpatient. Further recommendations to follow. MMODL / IJN: [id number] /
[2020-04-25] MEDS: lisinopriL 20 MG TAB PO SCH (17:36)
[2020-04-25] MEDS ORDERED: WARFARIN 2 MG TAB PO ONE (18:00)
--- NOTE | 2020-04-25 21:40 | PN ---
PROGRESS NOTE DATE OF SERVICE: 04/25/2020 REASON FOR FOLLOWUP: Complicated UTI. INTERVAL HISTORY: Patient is currently afebrile. The patient is feeling better. Breathing comfortably. The patient denies having any chest pain. No shortness of breath or cough. No abdominal pain. No diarrhea. PHYSICAL EXAMINATION: Blood pressure 143/79 with a pulse of 68, temperature 98.6. He is 96% on room air. General description: The patient is an elderly male lying in bed in no distress. Respiratory system: Unlabored breathing. Clear to auscultation anteriorly. Heart S1, S2. Regular rate and rhythm. Abdomen soft, no tenderness. LAB: Repeat UA was positive. Creatinine is 2. The INR is 2.34. Blood culture negative. DIAGNOSTIC IMPRESSION AND PLAN: Patient with complicated urinary tract infection. Urine culture did shows Staph epi, which is multidrug resistant. Currently covered with daptomycin. We will continue while waiting for the repeat culture to finalize to determine discharge antibiotics. Continue supportive care. MMODL / IJN: [id number] /
[2020-04-25] MEDS: ISOSORBIDE MONONITRATE ER 60 MG TAB.ER.24H PO SCH (22:15)
[2020-04-25] MEDS: DIGOXIN 125 MCG TAB PO SCH (22:22)
--- NOTE | 2020-04-26 07:27 | P.PN ---
Subjective Progress Note Date: 04/26/20 Is in the hospital for a urinary tract infection with sepsis and chronic urine retention. The patient has an indwelling catheter. His CBC is ambulatory and the final culture results are interpreted then he can be discharged home. He should go home with the Mendenhall and follow-up in our office. He will probably need a cystometrogram and cystoscopy to determine the status of his urine retention supposed to clarify how we'll handle this problem in the long run. Objective - Vital Signs Vital signs: Vital Signs Temp 97.8 F 04/26/20 04:19 Pulse 75 04/26/20 04:19 Resp 20 04/26/20 04:19 BP 155/73 04/26/20 04:19 Pulse Ox 96 04/26/20 04:19 Intake & Output 04/25/20 04/26/20 04/26/20 18:59 06:59 18:59 Intake Total 1080 Output Total 450 2200 Balance -450 -1120 Intake: Intake, IV Titration 600 Amount DAPTOmycin 300 mg In 600 Sodium Chloride 0.9% 50 ml @ 100 mls/hr IVPB Q24H ON LICENSE OF [facility] Rx#:[id number] Oral 480 Output: Urine 450 2200 Other: Voiding Method Indwelling Catheter Indwelling Catheter # Voids 1 - Labs CBC & Chem 7: 04/24/20 03:48 04/24/20 03:48 Labs: Abnormal Lab Results - Last 24 Hours (Table) 04/25/20 Range/Units 04:07 PT 23.7 H (9.9-11.9) sec INR 2.34 H (0.90-1.11) Microbiology - Last 24 Hours (Table) 04/21/20 05:04 Blood Culture - Preliminary Blood No Growth after 120 hours 04/24/20 16:30 Urine Culture - Final Urine,Voided
[2020-04-26] MEDS: BACLOFEN 10 MG TAB PO SCH ×3 (09:07→22:41)
[2020-04-26] MEDS: METOPROLOL TARTRATE 50 MG TAB PO SCH ×2 (09:07→17:32)
[2020-04-26] MEDS: GABAPENTIN 300 MG CAP PO SCH ×3 (09:07→22:41)
[2020-04-26] MEDS: ASPIRIN 81 MG PO SCH (09:07)
[2020-04-26] MEDS: PANTOPRAZOLE 40 MG TABLET PO SCH (09:07)
[2020-04-26] MEDS: TAMSULOSIN 0.4 MG CAP.ER.24H PO SCH ×2 (09:07→17:32)
[2020-04-26 09:36] LABS: INR 2.09 (0.90-1.11); Prothrombin Time 21.4 sec (9.9-11.9)
--- NOTE | 2020-04-26 16:18 | PN ---
PROGRESS NOTE DATE OF SERVICE: 04/26/2020 REASON FOR FOLLOWUP: Complicated UTI. INTERVAL HISTORY: The patient is currently afebrile. Patient is breathing comfortably. Patient denies having any chest pain or shortness of breath or cough. No nausea, no vomiting. No abdominal pain or diarrhea. PHYSICAL EXAMINATION: Blood pressure 133/81 with pulse of 60, temperature 98.2. He is 98% on room air. General description is an elderly male lying in bed in no distress. RESPIRATORY SYSTEM: Unlabored breathing, clear to auscultation anteriorly. HEART: S1, S2. Regular rate and rhythm. ABDOMEN: Soft, no tenderness. LABS: INR is 2.09. Repeat urine so far negative. DIAGNOSTIC IMPRESSION AND PLAN: Patient with a complicated urinary tract infection in this patient did have evidence of positive culture with Staphylococcus haemolyticus with resistant pattern, cannot use the Bactrim. He is currently on daptomycin that can be transitioned to Zyvox mg daily for another week and close outpatient followup. MMODL / IJN: [id number] /
[2020-04-26] MEDS: lisinopriL 20 MG TAB PO SCH (17:32)
--- NOTE | 2020-04-26 17:46 | PN ---
PROGRESS NOTE DATE OF SERVICE: 04/26/2020 I am covering for Dr. Reyes. This 79-year-old gentleman who was admitted with acute UTI with sepsis also had staph hemolyticus on urine culture. The patient is on daptomycin. The patient is followed by Dr. Jeison Reyes in the outpatient setting. No chest pain. No palpitations. No fever. Complains of extreme weakness. PHYSICAL EXAMINATION: Alert and oriented times three. Pulse 60. Blood pressure 133/81, respirations 16, temperature 98.2, pulse ox 98% on room air. HEENT is conjunctivae normal. NECK: No JVD. CARDIOVASCULAR: S1, S2 muffled. RESPIRATORY: Breath sounds diminished in the bases. A few scattered rhonchi and crackles. ABDOMEN: Soft, nontender. Legs are no edema. No swelling. NERVOUS SYSTEM: No focal deficits. LABORATORY DATA: Hemoglobin is 12.3. INR is 2.9. Urine culture Staph hemolyticus. ASSESSMENT: 1. Acute urinary tract infection with Staph hemolyticus, present on admission with sepsis on daptomycin IV. 2. Diffuse weakness. 3. Increased WBC present on admission. 4. Urinary obstruction on indwelling Mendenhall catheter. 5. Elevated D-dimer with no evidence of pulmonary embolism, possibly secondary to sepsis. 6. Covid 19 ruled out. 7. Elevated LDH and CRP. 8. Fusiform prominence of the mid point of the abdominal aortic aneurysm 3.[address] scan. 9. Moderate left hydronephrosis and hydroureter with no obstruction etiology present on CT scan. 10.History of atrial fibrillation, chronic. 11.History of cerebrovascular accident, transient ischemic attack. 12.Coumadin monitoring. 13.Hyperlipidemia. 14.Hypertension. 15.History of degenerative joint disease. 16.History of prostate disorder and prostate cancer with radiation. 17.History of hypothyroidism. 18.Multiple sclerosis history. 19.History of pacemaker. 20.History of back surgery. 21.History of cardiac catheterization. 22.FULL CODE. RECOMMENDATIONS AND DISCUSSION: Recommend to continue current medications, continue to monitor. Symptomatic treatment. Otherwise, at this time, I recommend continue with empiric antibiotics and PT/OT evaluation, possible ECF rehab. Dr. Reyes will follow. MMODL / IJN: [id number] /
[2020-04-26] MEDS ORDERED: WARFARIN 2.5 MG TAB PO ONE (18:00)
[2020-04-26] MEDS: ISOSORBIDE MONONITRATE ER 60 MG TAB.ER.24H PO SCH (22:41)
[2020-04-26] MEDS: DIGOXIN 125 MCG TAB PO SCH (22:42)
[2020-04-27 05:59] LABS: Basophils % (A) 0 %; Eosinophils # (A) 0.3 k/uL (0-0.7); Eosinophils % (A) 3 %; HCT 40.6 % (39.0-53.0); HGB 13.3 gm/dL (13.0-17.5); Lymphocytes % (A) 11 %; MCHC 32.8 g/dL (31.0-37.0); MCV 91.5 fL (80.0-100.0); Mean Platelet Volume 7.7; Monocytes # (A) 0.9 k/uL (0-1.0); Monocytes % (A) 10 %; Neutrophils # (A) 6.7 k/uL (1.3-7.7); Neutrophils % (A) 74 %; Platelet Count 164 k/uL (150-450); RBC 4.44 m/uL (4.30-5.90); RDW 12.7 % (11.5-15.5)
[2020-04-27 06:09] LABS: ALT 24 U/L (4-49); AST 27 U/L (17-59); African American GFR (CKD) 71 (>60 ml/min/1.73 sqM); Albumin 3.3 g/dL (3.5-5.0); Albumin/Globulin Ratio 1.3; Alkaline Phosphatase 56 U/L (38-126); Anion Gap 3 mmol/L; Blood Urea Nitrogen 20 mg/dL (9-20); Carbon Dioxide 32 mmol/L (22-30); Chloride 104 mmol/L (98-107); Globulin 2.6 g/dL; Glucose 104 mg/dL (74-99); Magnesium 1.9 mg/dL (1.6-2.3); Non-African American GFR(CKD) 61 (>60 ml/min/1.73 sqM); Potassium 4.2 mmol/L (3.5-5.1); Sodium 139 mmol/L (137-145); Total Bilirubin 0.9 mg/dL (0.2-1.3); Total Protein 5.9 g/dL (6.3-8.2)
[2020-04-27] MEDS: TAMSULOSIN 0.4 MG CAP.ER.24H PO SCH (08:03)
[2020-04-27] MEDS: ASPIRIN 81 MG PO SCH (08:03)
[2020-04-27] MEDS: PANTOPRAZOLE 40 MG TABLET PO SCH (08:03)
[2020-04-27] MEDS: GABAPENTIN 300 MG CAP PO SCH ×2 (08:04→15:15)
[2020-04-27] MEDS: BACLOFEN 10 MG TAB PO SCH ×2 (08:04→15:15)
[2020-04-27] MEDS: METOPROLOL TARTRATE 50 MG TAB PO SCH (08:04)
[2020-04-27 09:21] LABS: INR 2.41 (0.90-1.11); Prothrombin Time 24.4 sec (9.9-11.9)
[2020-04-27 11:06] VITALS: BMI 23.0
[2020-04-27 14:55] VITALS: BP 117/67; PULSE 63; RESP 16; TEMP 98
--- NOTE | 2020-04-27 15:06 | P.DS ---
Providers Date of admission: 04/21/20 06:10 Expected date of discharge: 04/27/20 Attending physician: Jeison Reyes Consults: 04/22/20 16:42 Consult Physician Routine Consulting Provider: Marcelo Lacey Consult Reason/Comments: hydronephrosis, h/o prostate ca Do you want consulting provider notified?: Yes 04/24/20 15:09 Consult Physician Routine Consulting Provider: Kacie Whitmore Consult Reason/Comments: uti Do you want consulting provider notified?: Yes Primary care physician: Jeison Reyes Hospital Course: This pleasant 79 year old male had a recent discharge from the hospital for non- ST segment elevation myocardial infarction and pneumonia prior to presenting to the hospital with extreme weakness and fever, he was admitted for work up. He had an elevated D-Dimer, CT angio did not show pulmonary embolism, CT of abdomen/pelvis indicated left hydronephrosis with hydroureter without etiology of obstruction. Urology consulted, easton catheter placed for urinary retention, ID consult for resistant urinary tract infection, he was started on Daptomycin IV and will transition to oral antibiotics, PT consulted and he will transfer to [facility] Assessment: Diffuse weakness Elevated white count Elevated D-Dimer without evidence of pulmonary embolism Elevated LDH and CRP Multiple Sclerosis Fusiform prominence of mid abdominal aorta approximately 3.4cm Moderate hydronephrosis with hydroureter with no obstructing etiology Urinary retention with easton catheter placement History of CVA History of transient ischemic attack History of chronic atrial fibrillation with anticoagulent therapy Coumadin monitoring Hyperlipidemia Hypertension History degenerative joint disease History of prostate cancer with radiation History of hypothyroidism History of pacemaker History of back surgery History of cardiac catheterization FULL CODE Health Concerns: Diffuse weakness Urinary retention with easton catheter Multiple complex medical issues Pertinent Studies: CT chest CT abdomen/pelvis: 1) fusiform of mid abdominal aorta 3.4cm, prominence of right common iliac artery; 2) 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; 3) Moderate left hydronephrosis with hydroureter no obstructing etiology identified US kidneys/renal and bladder Patient Condition at Discharge: Fair Plan - Discharge Summary New Discharge Prescriptions: New Linezolid [Zyvox] 600 mg PO Q12H 7 Days tab Continue Ramipril [Altace] 10 mg PO DAILY@1830 Isosorbide Mononitrate [Imdur] 60 mg PO HS@2300 Baclofen [Lioresal] 10 mg PO TID@0700,1500,2300 Warfarin [Coumadin] 2.5 mg PO SUTH@1830 Aspirin 81 mg PO DAILY@0700 Digoxin [Lanoxin] 125 mcg PO HS@2300 Simvastatin [Zocor] 40 mg PO HS@1830 Warfarin [Coumadin] 1.25 mg PO MOTUWEFRSA@1830 Tamsulosin [Flomax] 0.4 mg PO BID@0700,1830 Metoprolol Tartrate [Lopressor] 50 mg PO BID@0700,183 Gabapentin [Neurontin] 300 mg PO TID@0700,1500,2300 Discharge Medication List Aspirin 81 mg PO DAILY@0700 09/02/13 [History] Baclofen [Lioresal] 10 mg PO TID@0700,1500,2300 09/02/13 [History] Digoxin [Lanoxin] 125 mcg PO HS@23009/02/13 [History] Isosorbide Mononitrate [Imdur] 60 mg PO HS@23009/02/13 [History] Ramipril [Altace] 10 mg PO DAILY@182909/02/13 [History] Simvastatin [Zocor] 40 mg PO HS@18309/02/13 [History] Warfarin [Coumadin] 2.5 mg PO SUTH@18309/02/13 [History] Warfarin [Coumadin] 1.25 mg PO MOTUWEFRSA@1830 03/06/18 [History] Tamsulosin [Flomax] 0.4 mg PO BID@0700,1830 09/03/19 [History] Gabapentin [Neurontin] 300 mg PO TID@0700,1500,2300 04/20/20 [History] Metoprolol Tartrate [Lopressor] 50 mg PO BID@0700,1830 04/20/20 [History] Linezolid [Zyvox] 600 mg PO Q12H 7 Days tab 04/27/20 [Rx] Follow up Appointment(s)/Referral(s): Jeison Reyes MD [Primary Care Provider] - 1-2 days Michael Bryant MD [STAFF PHYSICIAN] - 2 Weeks (for urinary retention, follow-up as outpatient.) Discharge Disposition: TRANSFER TO SNF/ECF
--- NOTE | 2020-04-27 15:29 | PN ---
PROGRESS NOTE DATE OF SERVICE: 04/27/2020 REASON FOR FOLLOWUP: Staphylococcus haemolyticus drug resistant UTI. INTERVAL HISTORY: The patient is currently afebrile. The patient is breathing comfortably. Patient denies having any chest pain or cough. No nausea, no vomiting. No abdominal pain, distention. No diarrhea. PHYSICAL EXAMINATION: Blood pressure is 152/98 with a pulse of 76, temperature 98.3. He is 95% on room air. General description is an elderly male lying in bed in no distress. RESPIRATORY SYSTEM: Unlabored breathing, clear to auscultation anteriorly. HEART: S1, S2. Regular rate and rhythm. ABDOMEN: Soft, no tenderness. LABS: Hemoglobin 13.3, white count 9.0. BUN of 20, creatinine 1.15. DIAGNOSTIC IMPRESSION AND PLAN: Patient with a complicated urinary tract infection. Initial culture did have Staphylococcus haemolyticus which was drug-resistant. The patient is currently on daptomycin, transition to Zyvox 600 mg p.o. twice a day for a week and a close outpatient followup. MMODL / IJN: [id number] /
[2020-04-27] MEDS ORDERED: WARFARIN 1.25 MG TAB PO ONE (18:00)
--- NOTE | 2020-05-07 13:04 | CDI ---
Documentation Clarification Form Date 05/07/2020 From: Paz Mendez RN, CCDS Admit Date: 04/21/2020 Patient Name: Semaj Peralta (M 79 Yrs) Visit Number: [id number] Discharge Date: 04/27/2020 Dr. Odell Reyes Past medical history list the patient last myocardial infarction date: unknown date. In the H/P and subsequent progress notes has recently admitted with pneumonia and [id number]-elevation myocardial infarction. To accurately capture the severity of the condition please provide the date of NSTEMI and specify any ongoing treatment. History/Risk Factors: Atrial Fibrillation, Coronary artery disease, Hypertension, Hyperlipidemia , CVA, Prostate CA Clinical Indicators: 79-year-old male present to ED on 04/21 wiith complaint of weakness. Recent discharge for the hospital for non-ST segment elevation myocardioa infarction is documented with date as unknown. 04/21 Lab findings: WBC 15.1, Lactic acid 1.6 04/21 EKG: Atrial fibrillation rate 89 04/21 Vital Signs:149/81 87 19 102.891 % Treatment: Asprin 81 mg po daily Metoprolol 50 mg bid Coumadin 2/5 mg every Sunday, 1.25 mg TueWedFri Lipitor 20 mg po daily In your professional opinion, can you please clarify in the past medical history, NSTEM and provide date: History of NSTEMI with in the last 28 days ruled in ( please provide date) History of NSTEMI with in the last 28 days is ruled out Other, please specify Unable to determine (Last Revision: July 2017) MTDD
--- NOTE | 2020-05-12 09:55 | P.PN ---
Progress Note - Text Progress Note Date: 05/12/20 physician clarificationPhysician clarification complete History of NSTEMI with in the last 28 days ruled in- elevated troponins on 04/06/2020 visit near syncopal episode seven prior to admission. echocardiogram- ejection fraction 35-40 %
== END 2020-04-27 17:20 | DRG 871 ==
LOC: EC 04:36 → 6NMEDSUR 06:10
PROVIDERS: ADMIT Family Medicine; ATTEND Family Medicine
DX: A41.1 Sepsis due to other specified staphylococcus (principal); I21.4 Non-ST elevation (NSTEMI) myocardial infarction; N17.9 Acute kidney failure, unspecified; I48.20 Chronic atrial fibrillation, unspecified; N13.6 Pyonephrosis; I10 Essential (primary) hypertension; E78.5 Hyperlipidemia, unspecified; E03.9 Hypothyroidism, unspecified; Z20.822 Contact with and (suspected) exposure to COVID-19; M19.90 Unspecified osteoarthritis, unspecified site; G35 Multiple sclerosis; I71.4 Abdominal aortic aneurysm, without rupture; N32.89 Other specified disorders of bladder; I25.2 Old myocardial infarction; Z79.82 Long term (current) use of aspirin; Z79.01 Long term (current) use of anticoagulants; Z79.899 Other long term (current) drug therapy; Z86.73 Personal history of transient ischemic attack (TIA), and cerebral infarction without residual deficits; Z95.0 Presence of cardiac pacemaker; Z98.890 Other specified postprocedural states; Z85.46 Personal history of malignant neoplasm of prostate; Z80.9 Family history of malignant neoplasm, unspecified; Z87.891 Personal history of nicotine dependence; Z92.3 Personal history of irradiation; Z95.5 Presence of coronary angioplasty implant and graft
CPT/HCPCS: 36415; 71045; 71046; 71275; 74177; 76770; 80048; 80053; 81001; 82550; 83605; 83615; 83690; 83735; 83880; 84100; 84145; 84443; 84484; 85025; 85379; 85610; 85730; 86140; 87040; 87077; 87086; 87186; 87502; 87635; 93005; 96361; 96365; 96374; 99285

== ENCOUNTER 2020-06-26 22:12 | Inpatient (IN) | payer MEDICARE ==
[2020-06-26] MEDS ORDERED: SODIUM CHLORIDE 0.9% 1,000 ML IV STA ×2 (23:13)
[2020-06-26] MEDS ORDERED: IBUPROFEN 800 MG TAB PO STA (23:13)
[2020-06-26] MEDS ORDERED: ACETAMINOPHEN TAB 500 MG TAB PO STA (23:13)
[2020-06-26] MEDS ORDERED: SODIUM CHLORIDE 0.9% 500 ML 500 ML IV STA (23:13)
--- NOTE | 2020-06-26 23:23 | ED ---
Weakness HPI - General Chief complaint: Weakness Stated complaint: Leg Weakness Time Seen by Provider: 06/26/20 22:17 Source: patient, EMS, RN notes reviewed, old records reviewed Mode of arrival: EMS Limitations: no limitations, language barrier - History of Present Illness Initial comments: This is a 80-year-old male to the ER for evaluation patient Dese for evaluation regards to inability to ambulate. Patient has MS she does self cath, patient severely weak tonight with pain with urination. Also feels shaky with fever. Patient states this is similar event happen before with prior urinary tract infection. Otherwise no complaints MD Complaint: generalized weakness, lack of energy, difficulty walking -: days(s) Location: generalized, LLE, RLE Severity: moderate, severe Severity scale (1-10): 6 Consistency: constant Improves with: none Worsens with: none Context: recent illness, history of similar Associated Symptoms: denies other symptoms - Related Data Home Medications Medication Instructions Recorded Confirmed Aspirin 81 mg PO DAILY@0700 09/02/13 04/21/20 Baclofen [Lioresal] 10 mg PO TID@0700,1500,229909/02/13 04/21/20 Digoxin [Lanoxin] 125 mcg PO HS@229909/02/13 04/21/20 Isosorbide Mononitrate [Imdur] 60 mg PO HS@229909/02/13 04/21/20 Ramipril [Altace] 10 mg PO DAILY@182909/02/13 04/21/20 Simvastatin [Zocor] 40 mg PO HS@182909/02/13 04/21/20 Warfarin [Coumadin] 2.5 mg PO SUTH@182909/02/13 04/21/20 Warfarin [Coumadin] 1.25 mg PO MOTUWEFRSA@182903/06/18 04/21/20 Tamsulosin [Flomax] 0.4 mg PO BID@0700,182909/03/19 04/21/20 Gabapentin [Neurontin] 300 mg PO TID@0700,1500,2300 04/20/20 04/21/20 Metoprolol Tartrate [Lopressor] 50 mg PO BID@0700,1830 04/20/20 04/21/20 Previous Rx's Medication Instructions Recorded Linezolid [Zyvox] 600 mg PO Q12H 7 Days tab 04/27/20 Allergies Allergy/AdvReac Type Severity Reaction Status Date / Time No Known Allergies Allergy Verified 04/21/20 06:53 Review of Systems ROS Statement: Those systems with pertinent positive or pertinent negative responses have been documented in the HPI. ROS Other: All systems not noted in ROS Statement are negative. Past Medical History Past Medical History: Atrial Fibrillation, Cancer, CVA/TIA, Hyperlipidemia, Hypertension, Osteoarthritis (OA), Prostate Disorder, Thyroid Disorder Additional Past Medical History / Comment(s): MS, hx. prostate cancer 2015-had radiation. Generator change-01/14/2019 PACEMAKER ONLY, NO DEFIBRILLATOR Last Myocardial Infarction Date:: unk DATE History of Any Multi-Drug Resistant Organisms: None Reported Past Surgical History: Back Surgery, Heart Catheterization, Hernia Repair, Pacemaker Additional Past Surgical History / Comment(s): PACEMAKER, Generator change- 01/14/2019 Past Anesthesia/Blood Transfusion Reactions: No Reported Reaction Type of Cardiac Device: Permanent Pacemaker Device Placement Date:: 05/02/11 Past Psychological History: No Psychological Hx Reported Smoking Status: Never smoker Past Alcohol Use History: Occasional Past Drug Use History: None Reported - Past Family History Mother Family Medical History: No Reported History Sister(s) Family Medical History: Cancer General Exam Limitations: no limitations, language barrier General appearance: alert, in no apparent distress, anxious Head exam: Present: atraumatic, normocephalic, normal inspection Eye exam: Present: normal appearance, PERRL, EOMI. Absent: scleral icterus, conjunctival injection, periorbital swelling ENT exam: Present: normal exam, mucous membranes moist Neck exam: Present: normal inspection. Absent: tenderness, meningismus, lymphadenopathy Respiratory exam: Present: normal lung sounds bilaterally. Absent: respiratory distress, wheezes, rales, rhonchi, stridor Cardiovascular Exam: Present: regular rate, normal rhythm, normal heart sounds. Absent: systolic murmur, diastolic murmur, rubs, gallop, clicks GI/Abdominal exam: Present: soft, normal bowel sounds. Absent: distended, tenderness, guarding, rebound, rigid Extremities exam: Present: normal inspection, full ROM, normal capillary refill. Absent: tenderness, pedal edema, joint swelling, calf tenderness Back exam: Present: normal inspection Neurological exam: Present: alert, oriented X3, CN II-XII intact Psychiatric exam: Present: normal affect, normal mood Skin exam: Present: warm, dry, intact, normal color. Absent: rash Course Vital Signs 06/26/20 06/26/20 06/26/20 22:20 22:29 23:30 Temperature 101.3 F H Pulse Rate 90 69 Respiratory 16 16 16 Rate Blood Pressure 150/88 148/73 O2 Sat by Pulse 96 97 Oximetry 06/27/20 00:05 Temperature 101 F H Pulse Rate Respiratory Rate Blood Pressure O2 Sat by Pulse Oximetry - Reevaluation(s) Reevaluation #1: Medical record is reviewed Patient is still unable to ambulate without fevers improved and symptoms are improving with hydration Patient has no acute pain Patient informed results questions are answered EKG Findings - EKG Comments: EKG Findings:: EKG is paced rhythm of 73 QRS 106 QTc 427 Medical Decision Making - Medical Decision Making 72 male DF for evaluation of fever with recurrent urinary tract infection, patient will be admitted for treatment of UTI fever control hydration and PTOT - Lab Data Result diagrams: 06/26/20 23:20 06/26/20 23:20 Lab Results 06/26/20 06/26/20 06/26/20 Range/Units 23:20 23:20 23:20 WBC 8.1 (3.8-10.6) k/uL RBC 4.61 (4.30-5.90) m/uL Hgb 13.7 (13.0-17.5) gm/dL Hct 41.7 (39.0-53.0) % MCV 90.3 (80.0-100.0) fL MCH 29.8 (25.0-35.0) pg MCHC 33.0 (31.0-37.0) g/dL RDW 13.9 (11.5-15.5) % Plt Count 153 (150-450) k/uL MPV 7.5 Neutrophils % 80 % Lymphocytes % 7 % Monocytes % 9 % Eosinophils % 3 % Basophils % 0 % Neutrophils # 6.5 (1.3-7.7) k/uL Lymphocytes # 0.5 L (1.0-4.8) k/uL Monocytes # 0.8 (0-1.0) k/uL Eosinophils # 0.2 (0-0.7) k/uL Basophils # 0.0 (0-0.2) k/uL PT 30.7 H (9.0-12.0) sec INR 3.2 H (<1.2) APTT 36.7 H (22.0-30.0) sec Sodium (137-145) mmol/L Potassium (3.5-5.1) mmol/L Chloride (98-107) mmol/L Carbon Dioxide (22-30) mmol/L Anion Gap mmol/L BUN (9-20) mg/dL Creatinine (0.66-1.25) mg/dL Est GFR (CKD-EPI)AfAm (>60 ml/min/1.73 sqM) Est GFR (CKD-EPI)NonAf (>60 ml/min/1.73 sqM) Glucose (74-99) mg/dL Plasma Lactic Acid Justino (0.7-2.0) mmol/L Calcium (8.4-10.2) mg/dL Phosphorus (2.5-4.5) mg/dL Magnesium (1.6-2.3) mg/dL Total Bilirubin (0.2-1.3) mg/dL AST (17-59) U/L ALT (4-49) U/L Alkaline Phosphatase (38-126) U/L Creatine Kinase (55-170) U/L Troponin I (0.000-0.034) ng/mL NT-Pro-B Natriuret Pep pg/mL Total Protein (6.3-8.2) g/dL Albumin (3.5-5.0) g/dL TSH (0.465-4.680) mIU/L Urine Color Yellow Urine Appearance Turbid (Clear) Urine pH 6.5 (5.0-8.0) Ur Specific [place] 1.015 (1.001-1.035) Urine Protein 2+ H (Negative) Urine Glucose (UA) Negative (Negative) Urine Ketones Negative (Negative) Urine Blood Moderate H (Negative) Urine Nitrite Negative (Negative) Urine Bilirubin Negative (Negative) Urine Urobilinogen <2.0 (<2.0) mg/dL Ur Leukocyte Esterase Large H (Negative) Urine RBC 50 H (0-5) /hpf Urine WBC >182 H (0-5) /hpf Urine WBC Clumps Many H (None) /hpf Ur Squamous Epith Cells 2 (0-4) /hpf Urine Bacteria Many H (None) /hpf Urine Yeast (Budding) Many H (None) /hpf 06/26/20 06/26/20 06/26/20 Range/Units 23:20 23:20 23:20 WBC (3.8-10.6) k/uL RBC (4.30-5.90) m/uL Hgb (13.0-17.5) gm/dL Hct (39.0-53.0) % MCV (80.0-100.0) fL MCH (25.0-35.0) pg MCHC (31.0-37.0) g/dL RDW (11.5-15.5) % Plt Count (150-450) k/uL MPV Neutrophils % % Lymphocytes % % Monocytes % % Eosinophils % % Basophils % % Neutrophils # (1.3-7.7) k/uL Lymphocytes # (1.0-4.8) k/uL Monocytes # (0-1.0) k/uL Eosinophils # (0-0.7) k/uL Basophils # (0-0.2) k/uL PT (9.0-12.0) sec INR (<1.2) APTT (22.0-30.0) sec Sodium 138 (137-145) mmol/L Potassium 4.9 (3.5-5.1) mmol/L Chloride 104 (98-107) mmol/L Carbon Dioxide 28 (22-30) mmol/L Anion Gap 6 mmol/L BUN 29 H (9-20) mg/dL Creatinine 1.34 H (0.66-1.25) mg/dL Est GFR (CKD-EPI)AfAm 59 (>60 ml/min/1.73 sqM) Est GFR (CKD-EPI)NonAf 51 (>60 ml/min/1.73 sqM) Glucose 137 H (74-99) mg/dL Plasma Lactic Acid Justino 1.5 (0.7-2.0) mmol/L Calcium 8.9 (8.4-10.2) mg/dL Phosphorus 2.4 L (2.5-4.5) mg/dL Magnesium 2.0 (1.6-2.3) mg/dL Total Bilirubin 0.6 (0.2-1.3) mg/dL AST 22 (17-59) U/L ALT 14 (4-49) U/L Alkaline Phosphatase 59 (38-126) U/L Creatine Kinase 67 (55-170) U/L Troponin I 0.018 (0.000-0.034) ng/mL NT-Pro-B Natriuret Pep pg/mL Total Protein 6.9 (6.3-8.2) g/dL Albumin 4.2 (3.5-5.0) g/dL TSH 1.320 (0.465-4.680) mIU/L Urine Color Urine Appearance (Clear) Urine pH (5.0-8.0) Ur Specific [place] (1.001-1.035) Urine Protein (Negative) Urine Glucose (UA) (Negative) Urine Ketones (Negative) Urine Blood (Negative) Urine Nitrite (Negative) Urine Bilirubin (Negative) Urine Urobilinogen (<2.0) mg/dL Ur Leukocyte Esterase (Negative) Urine RBC (0-5) /hpf Urine WBC (0-5) /hpf Urine WBC Clumps (None) /hpf Ur Squamous Epith Cells (0-4) /hpf Urine Bacteria (None) /hpf Urine Yeast (Budding) (None) /hpf 06/26/20 Range/Units 23:20 WBC (3.8-10.6) k/uL RBC (4.30-5.90) m/uL Hgb (13.0-17.5) gm/dL Hct (39.0-53.0) % MCV (80.0-100.0) fL MCH (25.0-35.0) pg MCHC (31.0-37.0) g/dL RDW (11.5-15.5) % Plt Count (150-450) k/uL MPV Neutrophils % % Lymphocytes % % Monocytes % % Eosinophils % % Basophils % % Neutrophils # (1.3-7.7) k/uL Lymphocytes # (1.0-4.8) k/uL Monocytes # (0-1.0) k/uL Eosinophils # (0-0.7) k/uL Basophils # (0-0.2) k/uL PT (9.0-12.0) sec INR (<1.2) APTT (22.0-30.0) sec Sodium (137-145) mmol/L Potassium (3.5-5.1) mmol/L Chloride (98-107) mmol/L Carbon Dioxide (22-30) mmol/L Anion Gap mmol/L BUN (9-20) mg/dL Creatinine (0.66-1.25) mg/dL Est GFR (CKD-EPI)AfAm (>60 ml/min/1.73 sqM) Est GFR (CKD-EPI)NonAf (>60 ml/min/1.73 sqM) Glucose (74-99) mg/dL Plasma Lactic Acid Justino (0.7-2.0) mmol/L Calcium (8.4-10.2) mg/dL Phosphorus (2.5-4.5) mg/dL Magnesium (1.6-2.3) mg/dL Total Bilirubin (0.2-1.3) mg/dL AST (17-59) U/L ALT (4-49) U/L Alkaline Phosphatase (38-126) U/L Creatine Kinase (55-170) U/L Troponin I (0.000-0.034) ng/mL NT-Pro-B Natriuret Pep 1680 pg/mL Total Protein (6.3-8.2) g/dL Albumin (3.5-5.0) g/dL TSH (0.465-4.680) mIU/L Urine Color Urine Appearance (Clear) Urine pH (5.0-8.0) Ur Specific [place] (1.001-1.035) Urine Protein (Negative) Urine Glucose (UA) (Negative) Urine Ketones (Negative) Urine Blood (Negative) Urine Nitrite (Negative) Urine Bilirubin (Negative) Urine Urobilinogen (<2.0) mg/dL Ur Leukocyte Esterase (Negative) Urine RBC (0-5) /hpf Urine WBC (0-5) /hpf Urine WBC Clumps (None) /hpf Ur Squamous Epith Cells (0-4) /hpf Urine Bacteria (None) /hpf Urine Yeast (Budding) (None) /hpf Disposition Clinical Impression: Fever, Acute kidney injury, Weakness, Multiple sclerosis, UTI (urinary tract infection) Disposition: ADMITTED IP TO THIS [facility] Condition: Fair Is patient prescribed a controlled substance at d/c from ED?: No
[2020-06-26 23:32] LABS: Basophils % (A) 0 %; Eosinophils # (A) 0.2 k/uL (0-0.7); Eosinophils % (A) 3 %; HCT 41.7 % (39.0-53.0); HGB 13.7 gm/dL (13.0-17.5); Lymphocytes # (A) 0.5 k/uL (1.0-4.8); Lymphocytes % (A) 7 %; MCH 29.8 pg (25.0-35.0); MCV 90.3 fL (80.0-100.0); Mean Platelet Volume 7.5; Monocytes # (A) 0.8 k/uL (0-1.0); Monocytes % (A) 9 %; Neutrophils # (A) 6.5 k/uL (1.3-7.7); Neutrophils % (A) 80 %; Platelet Count 153 k/uL (150-450); RBC 4.61 m/uL (4.30-5.90); RDW 13.9 % (11.5-15.5); WBC 8.1 k/uL (3.8-10.6)
[2020-06-26 23:42] LABS: Appearance,Urine Turbid (Clear); Bacteria,Urine Many /hpf; Bilirubin,Urine Negative (Negative); Blood,Urine Moderate (Negative); Budding Yeast,Urine Many /hpf; Color,Urine Yellow; Glucose,Urine (UA) Negative (Negative); Ketones,Urine Negative (Negative); Leukocyte Esterase,Urine Large (Negative); Nitrite,Urine Negative (Negative); PH, Urine 6.5 (5.0-8.0); Protein,Urine 2+ (Negative); RBC,Urine 50 /hpf (0-5); Specific Gravity,Urine 1.015 (1.001-1.035); Squamous Epithelial Cell,Urine 2 /hpf (0-4); Urobilinogen,Urine <2.0 mg/dL (<2.0)
[2020-06-26 23:43] LABS: Albumin 4.2 g/dL (3.5-5.0); Calcium 8.9 mg/dL (8.4-10.2); Phosphorus 2.4 mg/dL (2.5-4.5); Potassium 4.9 mmol/L (3.5-5.1); Total Bilirubin 0.6 mg/dL (0.2-1.3); Total Protein 6.9 g/dL (6.3-8.2)
[2020-06-26 23:45] LABS: WBC,Urine >182 /hpf (0-5)
[2020-06-26 23:54] LABS: INR 3.2 (<1.2); Partial Thromboplastin Time 36.7 sec (22.0-30.0); Prothrombin Time 30.7 sec (9.0-12.0)
[2020-06-27] MEDS ORDERED: ENOXAPARIN 40 MG/0.4 ML SYRINGE SQ SCH (09:00)
[2020-06-27] MEDS: GABAPENTIN 300 MG CAP PO SCH ×2 (15:45→22:45)
[2020-06-27] MEDS: BACLOFEN 10 MG TAB PO SCH ×2 (15:45→22:45)
--- NOTE | 2020-06-27 17:39 | XR ---
EXAMINATION TYPE: XR chest 1V portable DATE OF EXAM: 06/27/2020 COMPARISON: 04/21/2020 HISTORY: CHF TECHNIQUE: Single frontal view of the chest is obtained. FINDINGS: There is no focal air space opacity, pleural effusion, or pneumothorax seen. The cardiac silhouette size is within normal limits. The osseous structures are intact. There is a 2-lead cardi ac pacemaker. IMPRESSION: No acute cardiopulmonary disease.
[2020-06-27] MEDS: ATORVASTATIN 20 MG TAB PO SCH (17:41)
[2020-06-27] MEDS: TAMSULOSIN 0.4 MG CAP.ER.24H PO SCH (17:41)
[2020-06-27] MEDS: lisinopriL 20 MG TAB PO SCH (17:41)
[2020-06-27] MEDS: METOPROLOL TARTRATE 50 MG TAB PO SCH (17:41)
--- NOTE | 2020-06-27 20:00 | HP ---
HISTORY AND PHYSICAL DATE OF SERVICE: 06/27/2020 CHIEF COMPLAINTS: Weakness and UTI. HISTORY OF PRESENT ILLNESS: This 80-year-old gentleman with a past medical history of multiple medical problems including atrial fibrillation, CVA, TIA, hypertension, hyperlipidemia, history of DJD, history of multiple sclerosis, history of prostate cancer with radiation being followed by Dr. Jeison Reyes in the outpatient setting, was not feeling well over the past couple days. Patient extremely weak. Patient unable to ambulate. The patient had urology problems, seen by Dr. Padilla previously. The patient is on straight cath just before bed, but the patient is not sure whether she has been able to empty the bladder completely and the patient also had a fever and shaking chills and the patient came to [facility] and was admitted to the hospital for further evaluation and treatment. INR was only 3.2. Creatinine is 1.34. The baseline creatinine was 1.5. BUN is 29. There is no history of any headache, loss of consciousness, seizures at this time. PAST MEDICAL HISTORY: History of atrial fibrillation, history of CVA, TIA, hypertension, hyperlipidemia, history of DJD, history of multiple sclerosis, history of prostate cancer. MEDICATIONS: Home medications are: Coumadin, Flomax, Zocor, Altace, Lopressor, Imdur, Neurontin, Lanoxin, aspirin. Doses reviewed. ALLERGIES: None. FAMILY HISTORY: No history of heart disease or strokes in the family. SOCIAL HISTORY: No history of smoking. Occasional alcohol intake. REVIEW OF SYSTEMS: ENT: No diminished vision. No diminished hearing. CARDIOVASCULAR: No angina. RESPIRATION: No cough. GI as mentioned earlier. mentioned earlier. NERVOUS SYSTEM: As mentioned earlier. ALLERGY/IMMUNOLOGY: No asthma or hayfever. MUSCULOSKELETAL as mentioned earlier. HEMATOLOGY/ONCOLOGY: No history of anemia. ENDOCRINE: No history of diabetes or hypothyroidism. CONSTITUTIONAL: As mentioned earlier. DERMATOLOGY: Negative. RHEUMATOLOGY negative. PSYCHIATRY as mentioned earlier. PHYSICAL EXAMINATION: Alert and oriented times three. Pulse is 71. Blood pressure 130/60. Respiration 18, temperature 98.4, T-max 101 degrees, pulse ox 94% on room air. HEENT: Conjunctivae normal. Oral mucosa moist. NECK is no jugular venous distention. No carotid bruit. No lymph node enlargement. CARDIOVASCULAR system: S1, S2 muffled. RESPIRATORY: Breath sounds diminished in the bases. A few scattered rhonchi and crackles. ABDOMEN: Soft. Mild diffuse tenderness in the lower part of the abdomen. Possibly lower abdominal wall hernia also present. LEGS: No edema. No swelling. NERVOUS SYSTEM: Higher functions as mentioned earlier. Moves all 4 limbs. Mild diffuse weakness. LYMPHATICS: No lymph nodes palpable in the neck, axillae or groin. SKIN: No ulcer, no rashes and no bleeding. JOINTS: No active deforming arthropathy. LABS: WBC 8.8, hemoglobin 13.7, INR 3.2, creatinine is 1.34. UA noted. ASSESSMENT: 1. Acute urinary tract infection with sepsis on presentation. 2. Generalized weakness secondary to sepsis, rule out . 3. Acute renal failure with acute tubular necrosis, prerenal acute renal failure. 4. Multiple sclerosis. 5. Gait dysfunction. 6. History of cerebrovascular accident, transient ischemic attack. 7. History of atrial fibrillation. 8. Hypertension. 9. Hyperlipidemia. 10.History of degenerative joint disease. 11.History of prostate cancer. 12.History of hypothyroidism. 13.History of self catheterization at night only. 14.History of pacemaker. 15.History of back surgery, degenerative joint disease. RECOMMENDATIONS AND DISCUSSION: In this 80-year-old gentleman who presented with multiple complex medical issues, we will monitor the patient closely, continue the current medications, management and symptomatic treatment. I would recommend continue with Rocephin. Continue the rest of medications. Hold Coumadin for now. The patient has mild Coumadin coagulopathy at this time. Otherwise, I would also recommend ultrasound of the kidneys, ureter and bladder and continued evaluation. Otherwise, the patient is on Flomax. Urology evaluation also recommended. Further recommendations to follow. A copy of dictation being forwarded to Dr. Jeison Reyes who is the primary physician. We will obtain urine culture and blood cultures also. Discussed with the patient and family who understands and agrees. MMODL / IJN: [id number] / MADELINE
[2020-06-27] MEDS: SODIUM CHLORIDE 0.9% 1,000 ML IV SCH (22:00)
[2020-06-27] MEDS: ISOSORBIDE MONONITRATE ER 60 MG TAB.ER.24H PO SCH (22:45)
[2020-06-27] MEDS: DIGOXIN 125 MCG TAB PO SCH (22:45)
[2020-06-28] MEDS: BACLOFEN 10 MG TAB PO SCH ×3 (06:43→21:45)
[2020-06-28] MEDS: TAMSULOSIN 0.4 MG CAP.ER.24H PO SCH ×2 (06:43→16:27)
[2020-06-28] MEDS: ASPIRIN 81 MG PO SCH (06:43)
[2020-06-28] MEDS: GABAPENTIN 300 MG CAP PO SCH ×3 (06:43→21:45)
[2020-06-28] MEDS: METOPROLOL TARTRATE 50 MG TAB PO SCH ×2 (06:43→16:27)
[2020-06-28 09:06] LABS: Basophils # (A) 0.01 X 10*3/uL (0.00-0.10); Basophils % (A) 0.1 %; Eosinophils % (A) 2.6 %; HCT 34.9 % (39.6-50.0); HGB 11.2 g/dL (13.0-17.0); MCH 29.2 pg (27.0-32.0); MCHC 32.1 g/dL (32.0-37.0); MCV 90.9 fL (80.0-97.0); Mean Platelet Volume 10.7 fL (9.5-12.2); Monocytes # (A) 1.24 X 10*3/uL (0.20-1.00); Monocytes % (A) 15.9 %; Neutrophils # (A) 5.62 X 10*3/uL (1.80-7.70); Neutrophils % (A) 71.9 %; Platelet Count 160 X 10*3/uL (140-440); RBC 3.84 X 10*6/uL (4.40-5.60); RDW 13.9 % (11.5-14.5); WBC 7.81 X 10*3/uL (4.50-10.00)
[2020-06-28 09:28] LABS: African American GFR (CKD) 83.2 (60.0-200.0); Anion Gap 4.7 mmol/L (4.00-12.00); Calcium 8.3 mg/dL (8.7-10.3); Carbon Dioxide 28.3 mmol/L (21.6-31.8); Non-African American GFR(CKD) 71.8 (60.0-200.0); Potassium 4.2 mmol/L (3.5-5.5)
[2020-06-28 10:18] LABS: INR 2.77 (0.90-1.11); Prothrombin Time 28.2 sec (9.9-11.9)
[2020-06-28] MEDS: SODIUM CHLORIDE 0.9% 1,000 ML IV SCH (10:36)
--- NOTE | 2020-06-28 14:53 | US ---
EXAMINATION TYPE: US kidneys/renal and bladder DATE OF EXAM: 06/27/2020 COMPARISON: 04/25/2020 CLINICAL HISTORY: hydronephrosis. No pain per patient. Urine retention per patient. EXAM MEASUREMENTS: Right Kidney: 13.2 x 5.6 x 5.9 cm Left Kidney: 10.9 x 5.0 x 3.6 cm Right Kidney: Cystic lesions seen with largest in inferior kidney = 1.9 x 2.0 x 2.0 cm. Prominent ve ssels seen. Left Kidney: Cystic lesions seen with largest in superior kidney = 2.7 x 1.8 x 1.9 cm. Appears small er in size compared to contralateral kidney. Bladder: Distended. Debris visualized. Possible focal posterior wall thickening = 8.8 mm Bilateral Jets not seen Normal Post Void Residual: IMPRESSION: 1. No evidence of hydronephrosis or nephrolithiasis. 2. Bilateral hypoechoic nodules most suggestive of renal simple cysts. #3 there appears to be debris or wall thickening involving the base of the bladder. This could be post infectious although mucosal lesion or malignancy not excluded correlation with cystoscopy suggested as clinically warranted.
[2020-06-28] MEDS: lisinopriL 20 MG TAB PO SCH (16:27)
--- NOTE | 2020-06-28 16:30 | PN ---
PROGRESS NOTE DATE OF SERVICE: 06/28/2020 I am covering for Dr. Reyes. INTERVAL HISTORY: This 80-year-old gentleman was admitted with apparent UTI and sepsis also complains of weakness. Patient also had renal failure. The patient also has history of multiple sclerosis. The patient was given IV fluids. INR is 2.77. Cultures are pending at this time. COVID-19 is negative. PAST MEDICAL HISTORY: Reviewed. REVIEW OF SYSTEMS: CARDIOVASCULAR: No angina or palpitations. RESPIRATORY: As mentioned earlier. GI: No nausea or vomiting. : As mentioned earlier. NERVOUS SYSTEM: Diffusely weak. CURRENT MEDICATIONS: Reviewed include Tylenol, aspirin, Lipitor, Lioresal, Rocephin, Lanoxin, Neurontin, Imdur, Zestril, Lopressor, Flomax. Doses reviewed. PHYSICAL EXAMINATION: GENERAL: Patient is alert and oriented times three. VITAL SIGNS: Pulse 69, blood pressure 130/69, respirations 18, temperature 97.4, pulse ox 97% on room air HEENT: Conjunctivae normal. Oral mucosa moist. NECK: No jugular venous distention. No carotid bruits. No lymph node enlargement. RESPIRATORY: Breath sounds diminished at the bases. No rhonchi, no crackles. HEART: S1 and S2, muffled. ABDOMEN: Soft, no tenderness. No masses palpable. EXTREMITIES: No edema, no swelling. NERVOUS: No focal deficits. LABS: WBC 7.8, hemoglobin 11.2. INR is 2.77. UA noted ASSESSMENT: 1. Acute urinary tract infection with sepsis on presentation. 2. Generalized weakness secondary to sepsis. 3. Acute renal failure with acute tubular necrosis, prerenal acute renal failure. 4. Multiple sclerosis. 5. Gait dysfunction. 6. History of cerebrovascular accident, transient ischemic attack. 7. History of atrial fibrillation. 8. Hypertension. 9. Hyperlipidemia. 10.History of degenerative joint disease. 11.History of prostate cancer. 12.Hypothyroidism. 13.History of self catheterization at night only. 14.History of pacemaker. 15.History of back surgery. 16.Urinary retention. RECOMMENDATIONS AND DISCUSSION: This 80-year-old gentleman who presented with multiple complex medical issues, at this time continue the current medical management and continue symptomatic treatment. Await cultures. Urine is growing gram-negative bacilli. I would recommend empiric antibiotics and I would also recommend urology evaluation because of the history of urinary retention previously. The patient has also seen Urology before and Dr. Reyes will follow tomorrow. Discussed with the patient who understands and agrees. MMODL / IJN: [id number] /
[2020-06-28] MEDS: ATORVASTATIN 20 MG TAB PO SCH (16:32)
[2020-06-28] MEDS: DIGOXIN 125 MCG TAB PO SCH (21:45)
[2020-06-28] MEDS: ISOSORBIDE MONONITRATE ER 60 MG TAB.ER.24H PO SCH (21:45)
[2020-06-28] MEDS: ACETAMINOPHEN TAB 325 MG TAB PO PRN (23:47)
[2020-06-29] MEDS: SODIUM CHLORIDE 0.9% 1,000 ML IV SCH ×3 (01:16→11:23)
[2020-06-29] MEDS: ASPIRIN 81 MG PO SCH (08:03)
[2020-06-29] MEDS: BACLOFEN 10 MG TAB PO SCH ×3 (08:03→22:12)
[2020-06-29] MEDS: TAMSULOSIN 0.4 MG CAP.ER.24H PO SCH ×2 (08:04→17:51)
[2020-06-29] MEDS: GABAPENTIN 300 MG CAP PO SCH ×3 (08:04→22:12)
[2020-06-29] MEDS: METOPROLOL TARTRATE 50 MG TAB PO SCH ×2 (08:04→17:51)
--- NOTE | 2020-06-29 09:59 | P.PN ---
Subjective Progress Note Date: 06/29/20 Principal diagnosis: Urinary tract infection associated with urinary retention acute kidney injury prerenal dehydration 80-year-old male, was evaluated this a.m., patient resting comfortably aside of bed. Patient was admitted for urinary tract infection with associated acute kidney injury. Patient noted to have mild dehydration upon admission. After bladder scan catheter was placed due to urinary retention. Consultation with urology for recommendations continued episodes of urinary retention. Patient denies fever, chills, shortness of breath, chest pain, palpitations, nausea, and diarrhea. Patient endorses superpubic pain and generalized weakness. Objective - Vital Signs Vital signs: Vital Signs Temp 97.6 F 06/29/20 04:31 Pulse 75 06/29/20 04:31 Resp 18 06/29/20 04:31 BP 137/66 06/29/20 04:31 Pulse Ox 97 06/29/20 08:37 Intake & Output 06/28/20 06/29/20 06/29/20 18:59 06:59 18:59 Intake Total 600 500 Output Total 800 2250 Balance -200 -1750 Intake: Intake, IV Titration 600 Amount Sodium Chloride 0.9% 1, 600 000 ml @ 75 mls/hr IV . [id number] [facility] Rx#:[id number] Oral 500 Output: Urine 800 2250 Uretheral (Mendenhall) 1250 Other: Voiding Method Indwelling Catheter Indwelling Catheter # Bowel Movements 3 - Constitutional General appearance: Present: cooperative - EENT Eyes: Present: EOMI, PERRLA ENT: Present: normal oropharynx Ears: bilateral: normal - Neck Neck: Present: normal ROM Carotids: bilateral: upstroke normal Thyroid: bilateral: normal size - Respiratory Respiratory: bilateral: CTA (Anterior posterior lung talamantes) - Cardiovascular Details: Atrial fibrillation Heart rate: 74 Rhythm: irregularly irregular Heart sounds: normal: S1, S2 - Peripheral edema foot Peripheral Edema: left: 2+ - Peripheral pulses radial pulse Peripheral Pulses: bilateral: Normal dorsalis pedis Peripheral Pulses: right: Normal, left: Diminished - Gastrointestinal General gastrointestinal: Present: normal bowel sounds, tenderness (Suprapubic) Localized gastrointestinal: tender: suprabubic - Genitourinary Genitourinary Comment(s): Foely catheter - Integumentary Integumentary: Present: decreased turgor - Neurologic Neurologic: Present: CNII-XII intact - Musculoskeletal Musculoskeletal Comment(s): foot drop Musculoskeletal: Present: generalized weakness - Psychiatric Psychiatric: Present: A&O x's 3, appropriate affect, intact judgment & insight - Allied health notes Allied health notes reviewed: nursing - Labs CBC & Chem 7: 06/28/20 06:21 06/28/20 06:21 Labs: Abnormal Lab Results - Last 24 Hours (Table) 06/28/20 Range/Units 06:21 PT 28.2 H (9.9-11.9) sec INR 2.77 H (0.90-1.11) Microbiology - Last 24 Hours (Table) 06/26/20 23:20 Blood Culture - Preliminary Blood No Growth after 48 hours 06/26/20 23:20 Urine Culture - Preliminary Urine,Catheterized Gram Neg Bacilli Assessment and Plan Assessment: Acute urinary tract infection generalized weakness acute kidney injury urinary retention multiple sclerosis history of CVA/TIA atrial fibrillation hypertension hyperlipidemia degenerative disc disease history of prostate cancer hypothyroidism history pacemaker full code Plan: Acute urinary tract infection continue broad-spectrum antibiotics awaiting cultures urinary retention Mendenhall catheter in place awaiting recommendations and treatment plan from urology generalized weakness continue IV hydration, with physical therapy continue to monitor diagnostic testing and labs continue to monitor vital signs continue medical management Time with Patient: Greater than 30
[2020-06-29 10:21] LABS: Basophils # (A) 0.02 X 10*3/uL (0.00-0.10); Basophils % (A) 0.3 %; Eosinophils # (A) 0.32 X 10*3/uL (0.04-0.35); Eosinophils % (A) 4.7 %; HCT 36.2 % (39.6-50.0); HGB 11.4 g/dL (13.0-17.0); Lymphocytes # (A) 0.86 X 10*3/uL (0.90-5.00); Lymphocytes % (A) 12.5 %; MCH 29.2 pg (27.0-32.0); MCHC 31.5 g/dL (32.0-37.0); MCV 92.8 fL (80.0-97.0); Mean Platelet Volume 10.5 fL (9.5-12.2); Monocytes # (A) 1.08 X 10*3/uL (0.20-1.00); Monocytes % (A) 15.7 %; Neutrophils # (A) 4.55 X 10*3/uL (1.80-7.70); Neutrophils % (A) 66.4 %; Platelet Count 171 X 10*3/uL (140-440); RDW 14.2 % (11.5-14.5); WBC 6.86 X 10*3/uL (4.50-10.00)
[2020-06-29 10:53] LABS: African American GFR (CKD) 66.7 (60.0-200.0); BUN/Creat Ratio 15.83 Ratio (12.00-20.00); Calcium 8.7 mg/dL (8.7-10.3); Non-African American GFR(CKD) 57.6 (60.0-200.0); Potassium 4.3 mmol/L (3.5-5.5)
[2020-06-29 11:50] LABS: INR 1.91 (0.90-1.11)
--- NOTE | 2020-06-29 16:21 | P.GSCN ---
History of Present Illness Consult date: 06/29/20 History of present illness: 80-year-old gentleman admitted with a urinary tract infection with sepsis, urine retention. Patient is known to and recently for prostate cancer, urine retention and what sounds like a hypotonic neurogenic bladder. The patient came in because weaken and found to have a urine infection as well as urine retention. The patient was on clean intermittent catheterization instituted by Dr. calix twice daily. Dr. calix first saw the patient in March upon [facility]. According to the patient he probably has had incomplete bladder emptying in urine retention for an extended period of time. Etiology of this is uncertain. The patient does have prostate cancer treated with radiation therapy 4 years ago. His last PSA was apparently nondetectable in the late fall. The patient has never had a TURP. Review of Systems All systems: negative - Constitutional Denies fever, Denies weight loss - EENT Eyes: denies blurred vision Ears, nose, mouth and throat: Denies dysphagia - Cardiovascular Denies chest pain, Denies shortness of breath - Respiratory Denies cough, Denies 7 - Gastrointestinal Reports as per HPI - Genitourinary Denies dysuria, Denies hematuria - Integumentary Denies rash, Denies unusual bruising - Neurological Denies headaches, Denies syncope - Hematologic/Lymphatic Denies easy bleeding, Denies easy bruising Past Medical History Past Medical History: Atrial Fibrillation, Cancer, CVA/TIA, Hyperlipidemia, Hypertension, Osteoarthritis (OA), Prostate Disorder, Thyroid Disorder Additional Past Medical History / Comment(s): MS, hx. prostate cancer 2014-had radiation. Generator change-01/14/2019 PACEMAKER ONLY, NO DEFIBRILLATOR Last Myocardial Infarction Date:: unk DATE History of Any Multi-Drug Resistant Organisms: None Reported Past Surgical History: Back Surgery, Heart Catheterization, Hernia Repair, Pacemaker Additional Past Surgical History / Comment(s): PACEMAKER, Generator change- 01/14/2019 Past Anesthesia/Blood Transfusion Reactions: No Reported Reaction Type of Cardiac Device: Permanent Pacemaker Device Placement Date:: 05/02/11 Past Psychological History: No Psychological Hx Reported Smoking Status: Former smoker Past Alcohol Use History: Occasional Additional Past Alcohol Use History / Comment(s): STARTED SMOKING AT AGE 20 quit smoking 1992, smoked 1ppd Past Drug Use History: None Reported - Past Family History Mother Family Medical History: No Reported History Sister(s) Family Medical History: Cancer Additional Family Medical History / Comment(s): melanoma Medications and Allergies Home Medications Medication Instructions Recorded Confirmed Type Aspirin 81 mg PO DAILY@0700 09/02/13 06/27/20 History Baclofen [Lioresal] 10 mg PO TID@0700,1500,2300 09/02/13 06/27/20 History Digoxin [Lanoxin] 125 mcg PO HS@229909/02/13 06/27/20 History Isosorbide Mononitrate [Imdur] 60 mg PO HS@23009/02/13 06/27/20 History Ramipril [Altace] 10 mg PO DAILY@182909/02/13 06/27/20 History Simvastatin [Zocor] 40 mg PO HS@182909/02/13 06/27/20 History Warfarin [Coumadin] 2.5 mg PO SUTUTH@182909/02/13 06/27/20 History Warfarin [Coumadin] 1.25 mg PO MOWEFRSA@1830 03/06/18 06/27/20 History Tamsulosin [Flomax] 0.4 mg PO BID@0700,1830 09/03/19 06/27/20 History Gabapentin [Neurontin] 300 mg PO TID@0700,1500,2300 04/20/20 06/27/20 History Metoprolol Tartrate [Lopressor] 50 mg PO BID@0700,1830 04/20/20 06/27/20 History Allergies Allergy/AdvReac Type Severity Reaction Status Date / Time No Known Allergies Allergy Verified 06/27/20 09:04 Surgical - Exam Vital Signs Temp Pulse Resp BP Pulse Ox 101.3 F H 90 16 150/88 96 06/26/20 22:20 06/26/20 22:20 06/26/20 22:20 06/26/20 22:20 06/26/20 22:20 - General well developed, well nourished, no distress - Eyes PERRL - ENT no hearing loss - Neck trachea midline - Respiratory normal expansion, normal respiratory effort - Cardiovascular Rhythm: regular - Abdomen Abdomen: soft, non tender - Integumentary no rash, no growths - Neurologic normal sensation - Musculoskeletal normal posture - Psychiatric oriented to time, oriented to person, oriented to place, speech is normal, memory intact Results - Labs 06/29/20 06:09 06/29/20 06:09 Abnormal Lab Results - Last 24 Hours (Table) 06/29/20 06/29/20 06/29/20 Range/Units 06:09 06:09 06:09 RBC 3.90 L (4.40-5.60) X 10*6/uL Hgb 11.4 L (13.0-17.0) g/dL Hct 36.2 L (39.6-50.0) % MCHC 31.5 L (32.0-37.0) g/dL Lymphocytes # 0.86 L (0.90-5.00) X 10*3/uL Monocytes # 1.08 H (0.20-1.00) X 10*3/uL PT 20.0 H (9.9-11.9) sec INR 1.91 H (0.90-1.11) Est GFR (CKD-EPI)NonAf 57.6 L (60.0-200.0) Microbiology - Last 24 Hours (Table) 06/26/20 23:20 Blood Culture - Preliminary Blood No Growth after 48 hours 06/26/20 23:20 Urine Culture - Preliminary Urine,Catheterized Gram Neg Bacilli Diabetes panel 06/29/20 Range/Units 06:09 Sodium 144 (135-145) mmol/L Potassium 4.3 (3.5-5.5) mmol/L Chloride 109 (96-109) mmol/L Carbon Dioxide 29.0 (21.6-31.8) mmol/L BUN 19.0 (9.0-27.0) mg/dL Creatinine 1.2 (0.6-1.5) mg/dL Glucose 96 (70-110) mg/dL Calcium 8.7 (8.7-10.3) mg/dL Calcium panel 06/29/20 Range/Units 06:09 Calcium 8.7 (8.7-10.3) mg/dL Pituitary panel 06/29/20 Range/Units 06:09 Sodium 144 (135-145) mmol/L Potassium 4.3 (3.5-5.5) mmol/L Chloride 109 (96-109) mmol/L Carbon Dioxide 29.0 (21.6-31.8) mmol/L BUN 19.0 (9.0-27.0) mg/dL Creatinine 1.2 (0.6-1.5) mg/dL Glucose 96 (70-110) mg/dL Calcium 8.7 (8.7-10.3) mg/dL Adrenal panel 06/29/20 Range/Units 06:09 Sodium 144 (135-145) mmol/L Potassium 4.3 (3.5-5.5) mmol/L Chloride 109 (96-109) mmol/L Carbon Dioxide 29.0 (21.6-31.8) mmol/L BUN 19.0 (9.0-27.0) mg/dL Creatinine 1.2 (0.6-1.5) mg/dL Glucose 96 (70-110) mg/dL Calcium 8.7 (8.7-10.3) mg/dL - Imaging US - kidney/bladder: report reviewed, image reviewed Assessment and Plan Assessment: Impression: Urinary tract infection with sepsis. Chronic urinary retention. Prostatic cancer status post treatment with external beam radiation therapy. Multiple medical illnesses Recommendations. I will review the patient's chart and discussed with Dr. ehsan recinos future urologic care management. At present however I leave indwelling catheter and continue with antibiotics. I'll follow the patient with you.
[2020-06-29] MEDS: lisinopriL 20 MG TAB PO SCH (17:51)
[2020-06-29] MEDS: ATORVASTATIN 20 MG TAB PO SCH (17:53)
[2020-06-29] MEDS: ISOSORBIDE MONONITRATE ER 60 MG TAB.ER.24H PO SCH (22:12)
[2020-06-29] MEDS: ACETAMINOPHEN TAB 325 MG TAB PO PRN (22:12)
[2020-06-29] MEDS: DIGOXIN 125 MCG TAB PO SCH (22:12)
[2020-06-30] MEDS: METOPROLOL TARTRATE 50 MG TAB PO SCH ×2 (08:25→17:58)
[2020-06-30] MEDS: GABAPENTIN 300 MG CAP PO SCH ×3 (08:25→21:55)
[2020-06-30] MEDS: ASPIRIN 81 MG PO SCH (08:26)
[2020-06-30] MEDS: SODIUM CHLORIDE 0.9% 1,000 ML IV SCH (08:26)
[2020-06-30] MEDS: TAMSULOSIN 0.4 MG CAP.ER.24H PO SCH ×2 (08:26→17:58)
[2020-06-30] MEDS: BACLOFEN 10 MG TAB PO SCH ×3 (08:26→21:55)
[2020-06-30 10:19] LABS: Basophils # (A) 0.02 X 10*3/uL (0.00-0.10); Basophils % (A) 0.3 %; Eosinophils # (A) 0.36 X 10*3/uL (0.04-0.35); Eosinophils % (A) 5.3 %; HCT 35.1 % (39.6-50.0); Lymphocytes % (A) 11.9 %; MCH 28.8 pg (27.0-32.0); MCHC 31.3 g/dL (32.0-37.0); MCV 91.9 fL (80.0-97.0); Mean Platelet Volume 10.5 fL (9.5-12.2); Monocytes # (A) 0.96 X 10*3/uL (0.20-1.00); Monocytes % (A) 14.3 %; Neutrophils # (A) 4.56 X 10*3/uL (1.80-7.70); Neutrophils % (A) 67.8 %; Platelet Count 178 X 10*3/uL (140-440); RBC 3.82 X 10*6/uL (4.40-5.60); RDW 13.9 % (11.5-14.5); WBC 6.73 X 10*3/uL (4.50-10.00)
[2020-06-30 11:05] LABS: African American GFR (CKD) 60.6 (60.0-200.0); Anion Gap 8.3 mmol/L (4.00-12.00); BUN/Creat Ratio 15.38 Ratio (12.00-20.00); Calcium 8.4 mg/dL (8.7-10.3); Carbon Dioxide 26.7 mmol/L (21.6-31.8); Non-African American GFR(CKD) 52.3 (60.0-200.0); Potassium 4.2 mmol/L (3.5-5.5)
[2020-06-30 12:17] LABS: INR 1.56 (0.90-1.11); Prothrombin Time 16.5 sec (9.9-11.9)
--- NOTE | 2020-06-30 17:22 | CDI ---
Documentation Clarification Form Date: 06/30/2020 04:45:03 PM From: Paz Mendez RN, CCDS Admit Date: 06/28/2020 03:53:00 PM Patient Name: Semaj Peralta Visit Number: [id number] Discharge Date: ATTENTION: The Clinical Documentation Specialists (CDI) and [facility] Coding Staff appreciate your assistance in clarifying documentation. Please respond to the clarification below the line at the bottom and electronically sign. The CDI & [facility] Coding staff will review the response and follow-up if needed. Please note: Queries are made part of the Legal Health Record. If you have any questions, please contact the author of this message via ITS. Dr. Jeison Reyes ED assessment and surgical consult on 06/29 document patient intermittent catheterization twice daily. He is admitted with urinary tract infection with sepsis per H/P on 06/26/20. History/Risk Factors: Atrial Fibrillation, Prostate cancer, recurrent urinary tract infections, Multiple sclerosis, hypotonic neurogenic bladder Clinical Indicators: 80-year-old male present to ED on 06/26 with leg weakness. He has MS and does self-cath. He reports pain with urination. 06/26 Vital signs 150/88 90 18 101.3 06/26 Labs: WBC 8.1 BUN 29, CR 1.34; Lactic acid 1.5; UA: Ur Leukocyte Esterase Large 06/26 Urine culure: Klebsiella oxytoca 06/26 Blood culture: No Growth after 72 hours Treatment: 37 Mendenhall Catheter insertion for urinary retention Monitor I/O .9NS IV @75 MLS/HR Rocephin 1 GM IVPB Q 8 HRS Please document the condition that these clinical indicators signify, whether Present on Admission, and cause if known: UTI with Sepsis secondary to self-intermittent catheterization POA PRESENT ON ADMISSION (Last Revision: January 2017) Urinary tract infection present on admission possibly due to intermittent self MTDD
[2020-06-30] MEDS: lisinopriL 20 MG TAB PO SCH (17:58)
[2020-06-30] MEDS: ATORVASTATIN 20 MG TAB PO SCH (17:58)
[2020-06-30] MEDS ORDERED: WARFARIN 2.5 MG TAB PO ONE (19:30)
--- NOTE | 2020-06-30 20:29 | P.PN ---
Subjective Progress Note Date: 06/30/20 (629) Principal diagnosis: Urinary tract infection associated with urinary retention acute kidney injury prerenal dehydration 80-year-old male, was evaluated this a.m., patient resting comfortably aside of bed. Patient was admitted for urinary tract infection with associated acute kidney injury. Patient noted to have mild dehydration upon admission.Patient denies fever, chills, shortness of breath, chest pain, palpitations, nausea, and diarrhea. Patient endorses superpubic pain and generalized weakness.Continue to wait for urology's recommendation and treatment plan for urinary tract infection with urinary retention Objective - Vital Signs Vital signs: Vital Signs Temp 97.4 F L 06/30/20 12:05 Pulse 68 06/30/20 12:05 Resp 20 06/30/20 12:05 BP 126/69 06/30/20 12:05 Pulse Ox 97 06/30/20 12:05 Intake & Output 06/30/20 06/30/20 07/01/20 06:59 18:59 06:59 Intake Total 1400 Output Total 1300 1500 Balance 100 -1500 Intake: Intake, IV Titration 900 Amount Sodium Chloride 0.9% 1, 900 000 ml @ 75 mls/hr IV . [id number] CLEMENT[facility] Rx#:[id number] Oral 500 Output: Urine 1300 1500 Uretheral (Mendenhall) 1300 Other: Voiding Method Indwelling Catheter Indwelling Catheter - EENT Eyes: Present: EOMI, PERRLA ENT: Present: normal oropharynx Ears: bilateral: normal - Neck Carotids: bilateral: upstroke normal Thyroid: bilateral: normal size - Respiratory Respiratory: bilateral: CTA (Anterior and posterior lung talamantes) - Cardiovascular Details: Demand pacer with underlying atrial fibrillation Heart rate: 74 Rhythm: regularly irregular Heart sounds: normal: S1, S2 - Peripheral edema foot Peripheral Edema: bilateral: 2+ - Peripheral pulses radial pulse Peripheral Pulses: bilateral: Normal femoral Peripheral Pulses: right: Normal, left: Diminished - Gastrointestinal General gastrointestinal: Present: normal bowel sounds, tenderness Localized gastrointestinal: tender: suprabubic - Integumentary Integumentary: Present: normal turgor - Neurologic Neurologic: Present: CNII-XII intact - Musculoskeletal Musculoskeletal: Present: left sided weakness - Psychiatric Psychiatric: Present: A&O x's 3, appropriate affect, intact judgment & insight - Allied health notes Allied health notes reviewed: nursing - Labs CBC & Chem 7: 06/30/20 05:27 06/30/20 05:27 Labs: Abnormal Lab Results - Last 24 Hours (Table) 06/30/20 06/30/20 06/30/20 Range/Units 05:27 05:27 05:27 RBC 3.82 L (4.40-5.60) X 10*6/uL Hgb 11.0 L (13.0-17.0) g/dL Hct 35.1 L (39.6-50.0) % MCHC 31.3 L (32.0-37.0) g/dL Lymphocytes # 0.80 L (0.90-5.00) X 10*3/uL Eosinophils # 0.36 H (0.04-0.35) X 10*3/uL PT 16.5 H (9.9-11.9) sec INR 1.56 H (0.90-1.11) Est GFR (CKD-EPI)NonAf 52.3 L (60.0-200.0) Calcium 8.4 L (8.7-10.3) mg/dL Microbiology - Last 24 Hours (Table) 06/26/20 23:20 Urine Culture - Final Urine,Catheterized Klebsiella oxytoca 06/26/20 23:20 Blood Culture - Preliminary Blood No Growth after 72 hours Assessment and Plan Assessment: Acute urinary tract infection generalized weakness acute kidney injury urinary retention multiple sclerosis history of CVA/TIA atrial fibrillation hypertension hyperlipidemia degenerative disc disease history of prostate cancer hypothyroidism history pacemaker full code Plan: Acute urinary tract infection continue broad-spectrum antibiotics awaiting cultures urinary retention Mendenhall catheter in place awaiting recommendations and treatment plan from urology generalized weakness continue IV hydration, with physical therapy continue to monitor diagnostic testing and labs continue to monitor vital signs continue medical management Time with Patient: Greater than 30
[2020-06-30 21:51] VITALS: RESP 16
[2020-06-30] MEDS: ACETAMINOPHEN TAB 325 MG TAB PO PRN (21:53)
[2020-06-30] MEDS: DIGOXIN 125 MCG TAB PO SCH (21:55)
[2020-06-30] MEDS: ISOSORBIDE MONONITRATE ER 60 MG TAB.ER.24H PO SCH (21:55)
--- NOTE | 2020-06-30 21:58 | XR ---
EXAMINATION TYPE: XR chest 1V DATE OF EXAM: 06/30/2020 COMPARISON: Correlation made with chest x-ray from 04/21/2020 HISTORY: Shortness of breath TECHNIQUE: Single frontal view of the chest is obtained. FINDINGS: There is no focal air space opacity, pleural effusion, or pneumothorax seen. The cardiac silhouette size is within normal limits. The osseous structures are intact. Left lung volumes is seen before. Left chest wall cardiac pacing device is noted. Pacing wires are in tact. IMPRESSION: No acute process.
--- NOTE | 2020-07-01 04:10 | P.GSCN ---
History of Present Illness Consult date: 06/30/20 History of present illness: CHIEF COMPLAINT: Right groin pain HISTORY OF PRESENT ILLNESS: The patient is a 80 year old male with personal history of multiple sclerosis who complains of right groin discomfort exacerbated with urinary retention. The patient has pre-existing history of lysis of adhesions including prior right inguinal hernia repair. He is admitted secondary to severe urinary retention including urinary tract infection. He does self catheterizations at least once daily. He has been self catheterizing himself for over 2 months. He has pre-existing history of multiple sclerosis that is progressive with generalized weakness resulting in neurogenic bladder and urinary retention. As a result of severe urinary retention, easton catheter has been placed. He does report generalized suprapubic discomfort related to history retention which is improving with his Easton catheter. PAST MEDICAL HISTORY: See list and reviewed PAST SURGICAL HISTORY: See list and reviewed MEDICATIONS: See list and reviewed ALLERGIES: See list and reviewed SOCIAL HISTORY: See list and reviewed FAMILY HISTORY: See list and reviewed REVIEW OF ORGAN SYSTEMS: CONSTITUTIONAL: No fevers or chills. No recent weight loss. EYES: Denies any trouble with vision. No glasses. HEENT: No difficulties with hearing. No nosebleeds. No difficulty swallowing. RESPIRATORY: Denies pneumonia. Denies any troubles with breathing or dyspnea on exertion. CARDIOVASCULAR: Has atrial fibrillation. Has congestive heart failure. Has hyperlipidemia. Has hypertensive heart disease. Has pacemaker. GASTROINTESTINAL: Denies fatty food intolerance. Denies change in bowel habits and gas bloat. GENITOURINARY: Denies any blood in urine. Has increased urinary frequency. Pa prostate cancer. NEUROLOGICAL: Has numbness. No seizure disorders or headaches. Has multiple sc lerosis. MUSCULOSKELETAL: Has back pain, stiffness or joint arthritis. SKIN: No current skin cancer. No rash. PSYCHIATRIC: Denies current depression or suicidal thoughts. ENDOCRINE: Denies current thyroid disorders. Denies any blood sugar glucose intolerance. HEME/LYMPHATIC: Denies any lumps and bumps around the neck. No recent deep venous thrombosis. On blood thinners. ALLERGY/IMMUNOLOGY: No immunoglobulin therapy. No immune deficiencies. BREAST: Denies current breast lumps, pain or nipple discharge. PHYSICAL EXAM: VITALS: Reviewed CONSTITUTIONAL: Well developed and in no acute distress. EYES: Conjuctivae without sclera icterus. Extraocular movements grossly intact. HEAD, EARS, NOSE, THROAT: Moist buccal mucosa. Head is atraumatic, normocephalic. Hears conversational speech. No nasal drainage. NECK: Supple. No JV distention. No thyroidomegaly. RESPIRATORY: Non-labored respirations and equal bilateral excursions. No gross wheezes. CARDIOVASCULAR: Irregular rate and irregular rhythm. Palpable 2+ radial pulses. ABDOMEN: Soft. Non-tender. Nondistended. LYMPH: No neck lymphadenopathy MUSCULOSKELETAL: Nail and fingers with good capillary refill. SKIN: Warm and well perfused with good skin turgor. NEUROLOGIC: Cranial nerves II through XII grossly intact. No focal or lateralizing signs. PSYCH: Appropriate affect. Alert and oriented to person, place and time. Di splays appropriate insight. CLINCAL LABS: Reviewed. Hgb 11.0 and low for anemia. WBC 6.1 and normal. INR is 1.56. MICROBIOLOGY: Urine culture consistent with Klebsiella species. IMAGING: I personally reviewed his CT of the abdomen pelvis from March 2020 without any findings of bilateral inguinal hernias. CT scan was consistent with moderately distended urinary bladder. This is my independent interpretation. RADIOLOGY: Abdominal ultrasound from June 2020 demonstrates bilateral renal c ysts less than 3 cm in size. Presence of sedimentation within the bladder identified. No finding of umbilical hernia. ASSESSMENT: 1. Urinary retention 2. Multiple sclerosis 3. Urinary tract infection 4. Neurogenic bladder 5. Atrial fibrillation 6. Chronic anticoagulation PLAN: 1. Findings of CT reviewed with patient including no recurrence of inguinal hernia. Abdominal pain and groin pain consistent with severe urinary retention and neurogenic bladder. 2. Management of urinary tract infection including severe urinary retention described. Thank you for this kind consultation. Past Medical History Past Medical History: Atrial Fibrillation, Cancer, CVA/TIA, Hyperlipidemia, Hypertension, Osteoarthritis (OA), Prostate Disorder, Thyroid Disorder Additional Past Medical History / Comment(s): MS, hx. prostate cancer 2015-had radiation. Generator change-01/14/2019 PACEMAKER ONLY, NO DEFIBRILLATOR Last Myocardial Infarction Date:: unk DATE History of Any Multi-Drug Resistant Organisms: None Reported Past Surgical History: Back Surgery, Heart Catheterization, Hernia Repair, Pacemaker Additional Past Surgical History / Comment(s): PACEMAKER, Generator change- 01/14/2019 Past Anesthesia/Blood Transfusion Reactions: No Reported Reaction Type of Cardiac Device: Permanent Pacemaker Device Placement Date:: 05/02/11 Past Psychological History: No Psychological Hx Reported Smoking Status: Former smoker Past Alcohol Use History: Occasional Additional Past Alcohol Use History / Comment(s): STARTED SMOKING AT AGE 20 quit smoking 1992, smoked 1ppd Past Drug Use History: None Reported - Past Family History Mother Family Medical History: No Reported History Sister(s) Family Medical History: Cancer Additional Family Medical History / Comment(s): melanoma Medications and Allergies Home Medications Medication Instructions Recorded Confirmed Type Aspirin 81 mg PO DAILY@0700 09/02/13 06/27/20 History Baclofen [Lioresal] 10 mg PO TID@0700,1500,2300 09/02/13 06/27/20 History Digoxin [Lanoxin] 125 mcg PO HS@2300 09/02/13 06/27/20 History Isosorbide Mononitrate [Imdur] 60 mg PO HS@2300 09/02/13 06/27/20 History Ramipril [Altace] 10 mg PO DAILY@1830 09/02/13 06/27/20 History Simvastatin [Zocor] 40 mg PO HS@1830 09/02/13 06/27/20 History Warfarin [Coumadin] 2.5 mg PO SUTUTH@1830 09/02/13 06/27/20 History Warfarin [Coumadin] 1.25 mg PO MOWEFRSA@1830 03/06/18 06/27/20 History Tamsulosin [Flomax] 0.4 mg PO BID@0700,1830 09/03/19 06/27/20 History Gabapentin [Neurontin] 300 mg PO TID@0700,1500,2300 04/20/20 06/27/20 History Metoprolol Tartrate [Lopressor] 50 mg PO BID@0700,1830 04/20/20 06/27/20 History Cefdinir [Omnicef] 300 mg PO Q12HR 7 Days #14 capsule 07/01/20 Rx Allergies Allergy/AdvReac Type Severity Reaction Status Date / Time No Known Allergies Allergy Verified 06/27/20 09:04 Surgical - Exam Vital Signs Temp Pulse Resp BP Pulse Ox 101.3 F H 90 16 150/88 96 06/26/20 22:20 06/26/20 22:20 06/26/20 22:20 06/26/20 22:20 06/26/20 22:20 Results - Labs 07/01/20 05:48 07/01/20 05:48 Abnormal Lab Results - Last 24 Hours (Table) 06/30/20 06/30/20 06/30/20 Range/Units 05:27 05:27 05:27 RBC 3.82 L (4.40-5.60) X 10*6/uL Hgb 11.0 L (13.0-17.0) g/dL Hct 35.1 L (39.6-50.0) % MCHC 31.3 L (32.0-37.0) g/dL Lymphocytes # 0.80 L (0.90-5.00) X 10*3/uL Eosinophils # 0.36 H (0.04-0.35) X 10*3/uL PT 16.5 H (9.9-11.9) sec INR 1.56 H (0.90-1.11) Est GFR (CKD-EPI)NonAf 52.3 L (60.0-200.0) Calcium 8.4 L (8.7-10.3) mg/dL Microbiology - Last 24 Hours (Table) 06/26/20 23:20 Blood Culture - Preliminary Blood No Growth after 96 hours 06/26/20 23:20 Urine Culture - Final Urine,Catheterized Klebsiella oxytoca Diabetes panel 06/30/20 Range/Units 05:27 Sodium 143 (135-145) mmol/L Potassium 4.2 (3.5-5.5) mmol/L Chloride 108 (96-109) mmol/L Carbon Dioxide 26.7 (21.6-31.8) mmol/L BUN 20.0 (9.0-27.0) mg/dL Creatinine 1.3 (0.6-1.5) mg/dL Glucose 97 (70-110) mg/dL Calcium 8.4 L (8.7-10.3) mg/dL Calcium panel 06/30/20 Range/Units 05:27 Calcium 8.4 L (8.7-10.3) mg/dL Pituitary panel 06/30/20 Range/Units 05:27 Sodium 143 (135-145) mmol/L Potassium 4.2 (3.5-5.5) mmol/L Chloride 108 (96-109) mmol/L Carbon Dioxide 26.7 (21.6-31.8) mmol/L BUN 20.0 (9.0-27.0) mg/dL Creatinine 1.3 (0.6-1.5) mg/dL Glucose 97 (70-110) mg/dL Calcium 8.4 L (8.7-10.3) mg/dL Adrenal panel 06/30/20 Range/Units 05:27 Sodium 143 (135-145) mmol/L Potassium 4.2 (3.5-5.5) mmol/L Chloride 108 (96-109) mmol/L Carbon Dioxide 26.7 (21.6-31.8) mmol/L BUN 20.0 (9.0-27.0) mg/dL Creatinine 1.3 (0.6-1.5) mg/dL Glucose 97 (70-110) mg/dL Calcium 8.4 L (8.7-10.3) mg/dL Assessment and Plan (1) Right groin pain Status: Acute Code(s): R10.31 - RIGHT LOWER QUADRANT PAIN SNOMED Code(s): 47445226267402935 (2) Retention, urine Status: Acute Code(s): R33.9 - RETENTION OF URINE, UNSPECIFIED SNOMED Code(s): 892374180 (3) Incomplete bladder emptying Status: Acute Code(s): R33.9 - RETENTION OF URINE, UNSPECIFIED SNOMED Code(s): 135734123 (4) Multiple sclerosis Status: Acute Code(s): G35 - MULTIPLE SCLEROSIS SNOMED Code(s): 62109558 (5) UTI (urinary tract infection) Status: Acute Code(s): N39.0 - URINARY TRACT INFECTION, SITE NOT SPECIFIED SNOMED Code(s): 65448385 (6) Atrial fibrillation Status: Acute Code(s): I48.91 - UNSPECIFIED ATRIAL FIBRILLATION SNOMED Code(s): 39150160 (7) Anticoagulant long-term use Status: Acute Code(s): Z79.01 - TECHNICAL SALES SUPPORT MANAGER (CURRENT) USE OF ANTICOAGULANTS SNOMED Code(s): 707286996
[2020-07-01 04:32] VITALS: BP 123/61; PULSE 74; TEMP 97.5
[2020-07-01] MEDS: SODIUM CHLORIDE 0.9% 1,000 ML IV SCH (05:59)
[2020-07-01 06:12] LABS: Basophils % (A) 0 %; Eosinophils # (A) 0.3 k/uL (0-0.7); Eosinophils % (A) 5 %; HCT 34.2 % (39.0-53.0); HGB 11.7 gm/dL (13.0-17.5); Lymphocytes # (A) 0.7 k/uL (1.0-4.8); Lymphocytes % (A) 12 %; MCH 30.3 pg (25.0-35.0); MCHC 34.1 g/dL (31.0-37.0); MCV 88.7 fL (80.0-100.0); Mean Platelet Volume 7.2; Monocytes # (A) 0.6 k/uL (0-1.0); Monocytes % (A) 10 %; Neutrophils # (A) 4.4 k/uL (1.3-7.7); Neutrophils % (A) 72 %; Platelet Count 188 k/uL (150-450); RBC 3.86 m/uL (4.30-5.90); RDW 13.8 % (11.5-15.5); WBC 6.1 k/uL (3.8-10.6)
[2020-07-01 06:25] LABS: ALT 14 U/L (4-49); AST 20 U/L (17-59); African American GFR (CKD) 73 (>60 ml/min/1.73 sqM); Albumin 3.1 g/dL (3.5-5.0); Albumin/Globulin Ratio 1.2; Alkaline Phosphatase 52 U/L (38-126); Anion Gap 6 mmol/L; Blood Urea Nitrogen 19 mg/dL (9-20); Calcium 8.5 mg/dL (8.4-10.2); Carbon Dioxide 28 mmol/L (22-30); Chloride 107 mmol/L (98-107); Globulin 2.5 g/dL; Glucose 99 mg/dL (74-99); Magnesium 1.8 mg/dL (1.6-2.3); Non-African American GFR(CKD) 63 (>60 ml/min/1.73 sqM); Potassium 4.1 mmol/L (3.5-5.1); Sodium 141 mmol/L (137-145); Total Bilirubin 0.4 mg/dL (0.2-1.3); Total Protein 5.6 g/dL (6.3-8.2)
--- NOTE | 2020-07-01 08:08 | P.PN ---
Progress Note - Text Progress Note Date: 07/01/20 (Physician clarification) Physician clarification UTI with sepsis secondary to self intermittent catheterization POA
[2020-07-01] MEDS: ASPIRIN 81 MG PO SCH (08:12)
[2020-07-01] MEDS: BACLOFEN 10 MG TAB PO SCH (08:12)
[2020-07-01] MEDS: METOPROLOL TARTRATE 50 MG TAB PO SCH (08:12)
[2020-07-01] MEDS: GABAPENTIN 300 MG CAP PO SCH (08:12)
[2020-07-01] MEDS: TAMSULOSIN 0.4 MG CAP.ER.24H PO SCH (08:12)
--- NOTE | 2020-07-01 08:12 | P.PN ---
Subjective Progress Note Date: 07/01/20 Principal diagnosis: Urinary tract infection associated with urinary retention acute kidney injury prerenal dehydration 80-year-old male, was evaluated this a.m., patient resting comfortably aside of bed. Patient was admitted for urinary tract infection with associated acute kidney injury. Patient noted to have mild dehydration upon admission.Patient denies fever, chills, shortness of breath, chest pain, palpitations, nausea, and diarrhea. Patient endorses superpubic pain and generalized weakness.Continue to wait for urology's recommendation and treatment plan with urinary retention Objective - Vital Signs Vital signs: Vital Signs Temp 97.5 F L 07/01/20 04:28 Pulse 74 07/01/20 04:28 Resp 16 07/01/20 04:28 BP 123/61 07/01/20 04:28 Pulse Ox 94 L 06/30/20 20:10 Intake & Output 06/30/20 07/01/20 07/01/20 18:59 06:59 18:59 Output Total 1500 Balance -1500 Output: Urine 1500 Other: Voiding Method Indwelling Catheter Indwelling Catheter - Constitutional General appearance: Present: cooperative - EENT Eyes: Present: EOMI, PERRLA Ears: bilateral: normal - Neck Neck: Present: normal ROM Carotids: bilateral: upstroke normal Thyroid: bilateral: normal size - Respiratory Respiratory: bilateral: CTA (Anterior and posterior) - Cardiovascular Details: Paced rhythm Heart rate: 64 Rhythm: regular Heart sounds: normal: S1, S2 - Peripheral edema ankle Peripheral Edema: right: None, left: 1+ - Peripheral pulses radial pulse Peripheral Pulses: bilateral: Normal - Gastrointestinal General gastrointestinal: Present: normal bowel sounds Localized gastrointestinal: tender: suprabubic - Integumentary Integumentary: Present: normal turgor - Neurologic Neurologic: Present: CNII-XII intact - Musculoskeletal Musculoskeletal: Present: left sided weakness - Psychiatric Psychiatric: Present: A&O x's 3, appropriate affect, intact judgment & insight - Labs CBC & Chem 7: 07/01/20 05:48 07/01/20 05:48 Labs: Abnormal Lab Results - Last 24 Hours (Table) 06/30/20 06/30/20 06/30/20 Range/Units 05:27 05:27 05:27 RBC 3.82 L (4.40-5.60) X 10*6/uL Hgb 11.0 L (13.0-17.0) g/dL Hct 35.1 L (39.6-50.0) % MCHC 31.3 L (32.0-37.0) g/dL Lymphocytes # 0.80 L (0.90-5.00) X 10*3/uL Eosinophils # 0.36 H (0.04-0.35) X 10*3/uL PT 16.5 H (9.9-11.9) sec INR 1.56 H (0.90-1.11) Est GFR (CKD-EPI)NonAf 52.3 L (60.0-200.0) Calcium 8.4 L (8.7-10.3) mg/dL Total Protein (6.3-8.2) g/dL Albumin (3.5-5.0) g/dL 07/01/20 07/01/20 Range/Units 05:48 05:48 RBC 3.86 L (4.40-5.60) X 10*6/uL Hgb 11.7 L (13.0-17.0) g/dL Hct 34.2 L (39.6-50.0) % MCHC (32.0-37.0) g/dL Lymphocytes # 0.7 L (0.90-5.00) X 10*3/uL Eosinophils # (0.04-0.35) X 10*3/uL PT (9.9-11.9) sec INR (0.90-1.11) Est GFR (CKD-EPI)NonAf (60.0-200.0) Calcium (8.7-10.3) mg/dL Total Protein 5.6 L (6.3-8.2) g/dL Albumin 3.1 L (3.5-5.0) g/dL Microbiology - Last 24 Hours (Table) 06/26/20 23:20 Blood Culture - Preliminary Blood No Growth after 96 hours 06/26/20 23:20 Urine Culture - Final Urine,Catheterized Klebsiella oxytoca Assessment and Plan Assessment: Acute urinary tract infection generalized weakness acute kidney injury urinary retention multiple sclerosis history of CVA/TIA atrial fibrillation hypertension hyperlipidemia degenerative disc disease history of prostate cancer hypothyroidism history pacemaker full code Plan: Acute urinary tract infection continue broad-spectrum antibiotics. urinary retention Mendenhall catheter in place awaiting recommendations and treatment plan from urology generalized weakness continue IV hydration, with physical therapy continue to monitor diagnostic testing and labs continue to monitor vital signs continue medical management Hopeful discharge within 24 hours Time with Patient: Greater than 30
--- NOTE | 2020-07-01 09:31 | CDI ---
Documentation Clarification Form Date: 07/01/2020 09:11:28 AM From: Paz Mendez RN,CCDS Admit Date: 06/28/2020 03:53:00 PM Patient Name: Semaj Peralta Visit Number: [id number] Discharge Date: ATTENTION: The Clinical Documentation Specialists (CDI) and [facility] Coding Staff appreciate your assistance in clarifying documentation. Please respond to the clarification below the line at the bottom and electronically sign. The CDI & [facility] Coding staff will review the response and follow-up if needed. Please note: Queries are made part of the Legal Health Record. If you have any questions, please contact the author of this message via ITS. Dr. Jeison Reyes Atrial Fibrillation is documented in the past medical history and in subsequent progress notes. Please render your opinion on type of atrial fibrillation if known History/Risk Factors: Atrial Fibrillation, Multiple sclerosis, Hypertension, Permanent pacemaker Clinical Indicators: 80-year-old male present to ED on 06/26 with complaints of left weakness. 06/26 Vital signs: 150/88 90 16 101.3. 06/28 EKG/telemetry: Atrial fibrillation vent rate 81 bpm 04/07/20 ECHO: Paced rhythm: Overall left ventricular systolic function is moderately impaired with, an EF between 35-40 % Treatment: Coumadin 2,5 ng po (06/30 Pharmacy dosing) Monitor PT, INR APTT daily In your professional opinion, can you please clarify the type of Atrial Fibrillation, if known? Chronic/Permanent (Last Revision: July 2017) paroxysmal atrial fibrillation MTDD
[2020-07-01 09:38] LABS: INR 1.5 (<1.2); Prothrombin Time 15.2 sec (9.0-12.0)
--- NOTE | 2020-07-01 10:02 | P.PN ---
Progress Note - Text Progress Note Date: 07/01/20 Physician clarification paroxysmal atrial fibrillation
[2020-07-01] MEDS ORDERED: WARFARIN 2.5 MG TAB PO ONE (18:00)
--- NOTE | 2020-07-01 18:33 | P.DS ---
Providers Date of admission: 06/28/20 15:53 Expected date of discharge: 07/01/20 Attending physician: Jeison Reyes Consults: 06/27/20 17:43 Consult Physician Routine Consulting Provider: Jonas Padilla Consult Reason/Comments: patient of record/ UTI Do you want consulting provider notified?: Yes 06/30/20 12:53 Consult Physician Urgent Consulting Provider: Suni Mcknight Consult Reason/Comments: hernia- with discomfort Do you want consulting provider notified?: Yes Primary care physician: Jeison Reyes Hospital Course: 72-year-old male was admitted to the hospital, for acute urinary tract infection present admission, dehydration, acute kidney injury prerenal and urinary retention. Patient had extensive diagnostic workup in the emergency department revealing urinary tract infection treated with ceftriaxone. Dehydration and acute kidney injury was treated with gentle hydration of normal saline. Patient found to have urinary retention easton catheter was placed, neurology was consulted for expert opinion patient follow-up with urology regarding urinary retention. Patient tolerated hospital stay well with treatment plan. Patient discharge with guarded prognosis due to comorbidities. Patient will follow-up with primary care physician in one to two days and follow-up with urology for six extensive diagnostic testing due to urinary retention and abnormal abdominal/bladder ultrasound. Assessment: Urinary tract infection present on admission possibly due to intermittent self catheterization urinary retention generalized weakness acute kidney injury secondary to dehydration multiple sclerosis history of CVA/TIA paroxysmal atrial fibrillation hypertension hyperlipidemia degenerative disc disease history of prostate cancer hypothyroidism history of pacemaker full code Health Concerns: Multiple sclerosis with right-sided weakness indwelling catheter with possibility of recurrent infections Pertinent Studies: Serial chest x-rays no acute changes renal/kidney abdominal ultrasound see dictation follow-up with urology Procedures: None performed Patient Condition at Discharge: Fair Plan - Discharge Summary Discharge Rx Participant: No New Discharge Prescriptions: New Cefdinir [Omnicef] 300 mg PO Q12HR 7 Days #14 capsule Continue Ramipril [Altace] 10 mg PO DAILY@1830 Isosorbide Mononitrate [Imdur] 60 mg PO HS@2300 Baclofen [Lioresal] 10 mg PO TID@0700,1500,2300 Warfarin [Coumadin] 2.5 mg PO SUTUTH@1830 Aspirin 81 mg PO DAILY@0700 Digoxin [Lanoxin] 125 mcg PO HS@2300 Simvastatin [Zocor] 40 mg PO HS@1830 Warfarin [Coumadin] 1.25 mg PO MOWEFRSA@1830 Tamsulosin [Flomax] 0.4 mg PO BID@0700,1830 Metoprolol Tartrate [Lopressor] 50 mg PO BID@0700,183 Gabapentin [Neurontin] 300 mg PO TID@0700,1500,2300 Discharge Medication List Aspirin 81 mg PO DAILY@0700 09/02/13 [History] Baclofen [Lioresal] 10 mg PO TID@0700,1500,2300 09/02/13 [History] Digoxin [Lanoxin] 125 mcg PO HS@229909/02/13 [History] Isosorbide Mononitrate [Imdur] 60 mg PO HS@229909/02/13 [History] Ramipril [Altace] 10 mg PO DAILY@182909/02/13 [History] Simvastatin [Zocor] 40 mg PO HS@182909/02/13 [History] Warfarin [Coumadin] 2.5 mg PO SUTUTH@182909/02/13 [History] Warfarin [Coumadin] 1.25 mg PO MOWEFRSA@1830 03/06/18 [History] Tamsulosin [Flomax] 0.4 mg PO BID@0700,1830 09/03/19 [History] Gabapentin [Neurontin] 300 mg PO TID@0700,1500,2300 04/20/20 [History] Metoprolol Tartrate [Lopressor] 50 mg PO BID@0700,1830 04/20/20 [History] Cefdinir [Omnicef] 300 mg PO Q12HR 7 Days #14 capsule 07/01/20 [Rx] Follow up Appointment(s)/Referral(s): Jeison Reyes MD [Primary Care Provider] - 07/05/20 10:30 am Patient Instructions/Handouts: Cefdinir (By mouth), Urinary Tract Infection in Men (DC) Discharge Disposition: HOME SELF-CARE
== END 2020-07-01 12:33 | disposition home or self-care (01) | DRG 698 ==
LOC: EC 22:12 → 5NMEDONC 06-27 → OBSVTOIN 06-28 15:53
PROVIDERS: ADMIT Family Medicine; ATTEND Family Medicine
DX: T83.518A Infection and inflammatory reaction due to other urinary catheter, initial encounter (principal); A41.50 Gram-negative sepsis, unspecified; N17.0 Acute kidney failure with tubular necrosis; N39.0 Urinary tract infection, site not specified; C61 Malignant neoplasm of prostate; E03.9 Hypothyroidism, unspecified; E78.5 Hyperlipidemia, unspecified; E86.0 Dehydration; G35 Multiple sclerosis; I25.2 Old myocardial infarction; I48.0 Paroxysmal atrial fibrillation; Z86.73 Personal history of transient ischemic attack (TIA), and cerebral infarction without residual deficits; M19.90 Unspecified osteoarthritis, unspecified site; N31.9 Neuromuscular dysfunction of bladder, unspecified; I10 Essential (primary) hypertension; Z20.822 Contact with and (suspected) exposure to COVID-19; R33.9 Retention of urine, unspecified; Z79.01 Long term (current) use of anticoagulants; Z79.82 Long term (current) use of aspirin; Z79.899 Other long term (current) drug therapy; Z80.8 Family history of malignant neoplasm of other organs or systems; Z87.440 Personal history of urinary (tract) infections; Z87.891 Personal history of nicotine dependence; Z92.3 Personal history of irradiation; Z95.0 Presence of cardiac pacemaker
CPT/HCPCS: 36415; 71045; 76770; 80048; 80053; 81001; 82550; 83605; 83735; 83880; 84100; 84443; 84484; 85025; 85610; 85730; 87040; 87077; 87086; 87186; 87635; 93005; 94760; 96360; 96361; 96365; 96366; 96372; 99285

== ENCOUNTER 2020-08-21 09:56 | Emergency (ER) | payer MEDICARE ==
[2020-08-21 09:59] VITALS: TEMP 97.6
--- NOTE | 2020-08-21 10:21 | ED ---
Male Urogenital HPI - General Chief complaint: Urogenital Stated complaint: Blood in urine Time Seen by Provider: 08/21/20 10:06 Source: patient, RN notes reviewed Mode of arrival: ambulatory Limitations: no limitations - History of Present Illness Initial comments: Patient is a 80-year-old male that presents to emergency department complaining of hematuria for the last 4 days. He notes that he does have a history of prostate cancer and has undergone radiation. He denies any invasive procedures such as a TURP. He notes that he has been straight cathing himself at home for urinary retention for the past month. He notes over the last 10 days she's been straight cathing 3 times a day. He notes that he's had moderate amounts of blood in his urine with some black clots over the last 4 days. He denied any dysuria or discomfort with straight cathing or urination. Patient does report that he is taking blood thinners. He was in no apparent distress or pain while sitting up in bed during the exam interview. He did know he follow-up with his urologist yesterday and they told her to drink lots of fluids to help flush out his bladder. He denied any chest pain shortness of breath headache nausea vomiting diarrhea constipation fever fatigue chills history of kidney stones. - Related Data Home Medications Medication Instructions Recorded Confirmed Aspirin 81 mg PO DAILY@0700 09/02/13 08/21/20 Baclofen [Lioresal] 10 mg PO TID@0700,1500,229909/02/13 08/21/20 Digoxin [Lanoxin] 125 mcg PO HS@229909/02/13 08/21/20 Isosorbide Mononitrate [Imdur] 60 mg PO HS@229909/02/13 08/21/20 Ramipril [Altace] 10 mg PO DAILY@182909/02/13 08/21/20 Simvastatin [Zocor] 40 mg PO HS@182909/02/13 08/21/20 Warfarin [Coumadin] 2.5 mg PO SUTH@182909/02/13 08/21/20 Warfarin [Coumadin] 1.25 mg PO MOTUWEFRSA@182903/06/18 08/21/20 Tamsulosin [Flomax] 0.4 mg PO BID@0700,182909/03/1921 Gabapentin [Neurontin] 300 mg PO TID@0700,1500,2300 04/20/20 08/21/20 Metoprolol Tartrate [Lopressor] 75 mg PO BID@0700,1830 04/20/20 08/21/20 Allergies Allergy/AdvReac Type Severity Reaction Status Date / Time No Known Allergies Allergy Verified 08/21/20 12:17 Review of Systems ROS Statement: Those systems with pertinent positive or pertinent negative responses have been documented in the HPI. ROS Other: All systems not noted in ROS Statement are negative. Past Medical History Past Medical History: Atrial Fibrillation, Cancer, CVA/TIA, Hyperlipidemia, H ypertension, Osteoarthritis (OA), Prostate Disorder, Thyroid Disorder Additional Past Medical History / Comment(s): MS, hx. prostate cancer 2014-had radiation. Generator change-01/14/2019 PACEMAKER ONLY, NO DEFIBRILLATOR Last Myocardial Infarction Date:: unk DATE History of Any Multi-Drug Resistant Organisms: None Reported Past Surgical History: Back Surgery, Heart Catheterization, Hernia Repair, Pacemaker Additional Past Surgical History / Comment(s): PACEMAKER, Generator change- 01/14/2019 Past Anesthesia/Blood Transfusion Reactions: No Reported Reaction Type of Cardiac Device: Permanent Pacemaker Device Placement Date:: 05/02/11 Past Psychological History: No Psychological Hx Reported Smoking Status: Former smoker Past Alcohol Use History: Occasional Past Drug Use History: None Reported - Past Family History Mother Family Medical History: No Reported History Sister(s) Family Medical History: Cancer Additional Family Medical History / Comment(s): melanoma General Exam Limitations: no limitations General appearance: alert, in no apparent distress Head exam: Present: atraumatic, normocephalic, normal inspection Eye exam: Present: normal appearance, PERRL, EOMI. Absent: scleral icterus, conjunctival injection, periorbital swelling Neck exam: Present: normal inspection. Absent: tenderness, meningismus, lymphadenopathy Respiratory exam: Present: normal lung sounds bilaterally. Absent: respiratory distress, wheezes, rales, rhonchi, stridor Cardiovascular Exam: Present: regular rate, normal rhythm, normal heart sounds. Absent: systolic murmur, diastolic murmur, rubs, gallop, clicks GI/Abdominal exam: Present: soft, normal bowel sounds. Absent: distended, tenderness, guarding, rebound, rigid Extremities exam: Present: normal inspection, full ROM, normal capillary refill, other (Knee brace on right knee in place). Absent: tenderness, pedal edema, joint swelling, calf tenderness Neurological exam: Present: alert, oriented X3, CN II-XII intact Psychiatric exam: Present: normal affect, normal mood Skin exam: Present: warm, dry, intact, normal color. Absent: rash Course Vital Signs 08/21/20 09:57 Temperature 97.6 F Pulse Rate 75 Respiratory 16 Rate Blood Pressure 122/61 O2 Sat by Pulse 97 Oximetry Medical Decision Making - Medical Decision Making 80-year-old male complaining of hematuria 4 days. CBC, BMP, PT/INR, PTT, urinalysis, CT of the abdomen and pelvis without contrast ordered. Labs: BU 129, creatinine 1.44, rest of labs unremarkable. Urinalysis shows high amounts of red blood cells white blood cells white blood cell clumps Case discussed with Dr. Segal, patient can discharge home with follow-up to urology. - Lab Data Result diagrams: 08/21/20 10:26 08/21/20 10:26 Lab Results 08/21/20 08/21/20 08/21/20 Range/Units 10:26 10:26 10:26 WBC 5.9 (3.8-10.6) k/uL RBC 4.30 (4.30-5.90) m/uL Hgb 13.1 (13.0-17.5) gm/dL Hct 38.3 L (39.0-53.0) % MCV 89.0 (80.0-100.0) fL MCH 30.5 (25.0-35.0) pg MCHC 34.2 (31.0-37.0) g/dL RDW 13.6 (11.5-15.5) % Plt Count 139 L (150-450) k/uL MPV 7.4 Neutrophils % 67 % Lymphocytes % 10 % Monocytes % 15 % Eosinophils % 5 % Basophils % 1 % Neutrophils # 3.9 (1.3-7.7) k/uL Lymphocytes # 0.6 L (1.0-4.8) k/uL Monocytes # 0.9 (0-1.0) k/uL Eosinophils # 0.3 (0-0.7) k/uL Basophils # 0.1 (0-0.2) k/uL PT (9.0-12.0) sec INR (<1.2) APTT (22.0-30.0) sec Sodium 137 (137-145) mmol/L Potassium 4.8 (3.5-5.1) mmol/L Chloride 103 (98-107) mmol/L Carbon Dioxide 28 (22-30) mmol/L Anion Gap 6 mmol/L BUN 29 H (9-20) mg/dL Creatinine 1.44 H (0.66-1.25) mg/dL Est GFR (CKD-EPI)AfAm 53 (>60 ml/min/1.73 sqM) Est GFR (CKD-EPI)NonAf 46 (>60 ml/min/1.73 sqM) Glucose 100 H (74-99) mg/dL Calcium 8.9 (8.4-10.2) mg/dL Urine Color Red Urine Appearance Bloody (Clear) Urine RBC >182 H (0-5) /hpf Urine WBC >182 H (0-5) /hpf Urine WBC Clumps Many H (None) /hpf 08/21/20 Range/Units 10:26 WBC (3.8-10.6) k/uL RBC (4.30-5.90) m/uL Hgb (13.0-17.5) gm/dL Hct (39.0-53.0) % MCV (80.0-100.0) fL MCH (25.0-35.0) pg MCHC (31.0-37.0) g/dL RDW (11.5-15.5) % Plt Count (150-450) k/uL MPV Neutrophils % % Lymphocytes % % Monocytes % % Eosinophils % % Basophils % % Neutrophils # (1.3-7.7) k/uL Lymphocytes # (1.0-4.8) k/uL Monocytes # (0-1.0) k/uL Eosinophils # (0-0.7) k/uL Basophils # (0-0.2) k/uL PT 22.8 H (9.0-12.0) sec INR 2.3 H (<1.2) APTT 31.8 H (22.0-30.0) sec Sodium (137-145) mmol/L Potassium (3.5-5.1) mmol/L Chloride (98-107) mmol/L Carbon Dioxide (22-30) mmol/L Anion Gap mmol/L BUN (9-20) mg/dL Creatinine (0.66-1.25) mg/dL Est GFR (CKD-EPI)AfAm (>60 ml/min/1.73 sqM) Est GFR (CKD-EPI)NonAf (>60 ml/min/1.73 sqM) Glucose (74-99) mg/dL Calcium (8.4-10.2) mg/dL Urine Color Urine Appearance (Clear) Urine RBC (0-5) /hpf Urine WBC (0-5) /hpf Urine WBC Clumps (None) /hpf - Radiology Data Radiology results: report reviewed, image reviewed CT of the abdomen and pelvis: Stable small fusiform infrarenal abdominal aortic aneurysm with calcification. Abnormality of the urinary bladder and the findings are suspicious for neoplasm. Repeat CT of the abdomen and pelvis with IV contrast may be useful for further evaluation. Disposition Clinical Impression: Malignant neoplasm of prostate, Retention, urine, Acute kidney injury Disposition: HOME SELF-CARE Condition: Stable Instructions (If sedation given, give patient instructions): Hematuria (ED) Additional Instructions: Please return to the Emergency Department if symptoms worsen or any other concerns. Follow-up with urologist as scheduled. Continue take at home medications as prescribed area Follow-up with primary care in 3-5 days. Is patient prescribed a controlled substance at d/c from ED?: No Referrals: Jeison Reyes MD [Primary Care Provider] - 1-2 days Time of Disposition: 13:00
[2020-08-21 10:55] LABS: Basophils # (A) 0.1 k/uL (0-0.2); Basophils % (A) 1 %; Eosinophils # (A) 0.3 k/uL (0-0.7); Eosinophils % (A) 5 %; HCT 38.3 % (39.0-53.0); HGB 13.1 gm/dL (13.0-17.5); Lymphocytes # (A) 0.6 k/uL (1.0-4.8); Lymphocytes % (A) 10 %; MCH 30.5 pg (25.0-35.0); MCHC 34.2 g/dL (31.0-37.0); Mean Platelet Volume 7.4; Monocytes # (A) 0.9 k/uL (0-1.0); Monocytes % (A) 15 %; Neutrophils # (A) 3.9 k/uL (1.3-7.7); Neutrophils % (A) 67 %; Platelet Count 139 k/uL (150-450); RDW 13.6 % (11.5-15.5); WBC 5.9 k/uL (3.8-10.6)
[2020-08-21 11:13] LABS: INR 2.3 (<1.2); Partial Thromboplastin Time 31.8 sec (22.0-30.0); Prothrombin Time 22.8 sec (9.0-12.0)
[2020-08-21 11:19] LABS: Calcium 8.9 mg/dL (8.4-10.2)
[2020-08-21 11:20] LABS: RBC,Urine >182 /hpf (0-5); WBC,Urine >182 /hpf (0-5)
[2020-08-21 11:22] LABS: Appearance,Urine Bloody (Clear)
[2020-08-21 11:23] LABS: Color,Urine Red
[2020-08-21 11:38] LABS: Potassium 4.8 mmol/L (3.5-5.1)
--- NOTE | 2020-08-21 12:49 | CT ---
EXAMINATION TYPE: CT abdomen pelvis wo con DATE OF EXAM: 08/21/2020 COMPARISON: 04/21/2020 HISTORY: hematuria CT DLP: 557.6 mGycm Automated exposure control for dose reduction was used. TECHNIQUE: Helical acquisition of images was performed from the lung bases through the pelvis. FINDINGS: The lung bases are clear. There is moderate to marked cardiomegaly. There is a cyst in the left upper quadrant which is seen previously and most likely represents a simp le mesenteric cyst. Has a benign appearance and is stable. The liver, pancreas and spleen are grossly normal without organomegaly. No large adrenal masses are s een. There are no renal or ureteral calcifications. There is no definite hydronephrosis. There are simple cysts of the kidneys bilaterally which were seen previously and are stable. There is mild 3.1 cm infrarenal aortic aneurysm is not increased in size compared to the prior study. The bowel loops are normal in caliber and there is no evidence of obstruction. There is no free intra peritoneal air or fluid. There is no pelvic adenopathy or free fluid. The wall of the urinary bladder is diffusely thickened a nd appears somewhat nodular and masslike along the posterior wall. The findings are suspicious for ne oplasm within the urinary bladder. Repeat CT with IV contrast may be useful for further evaluation. T his was not identified on the prior study however 04/21/2020. IMPRESSION: 1. Stable small fusiform infrarenal abdominal aortic aneurysm with calcification. 2. Abnormality of the urinary bladder and the findings are suspicious for neoplasm. Repeat CT of the abdomen and pelvis with IV contrast may be useful for further evaluation.
[2020-08-21 13:23] VITALS: BP 132/73; PULSE 69; RESP 18
== END 2020-08-21 13:21 | disposition home or self-care (01) ==
LOC: EC 09:56
DX: C61 Malignant neoplasm of prostate (principal); N17.9 Acute kidney failure, unspecified; R33.9 Retention of urine, unspecified; E78.5 Hyperlipidemia, unspecified; I10 Essential (primary) hypertension; I25.2 Old myocardial infarction; I48.91 Unspecified atrial fibrillation; M19.90 Unspecified osteoarthritis, unspecified site; E07.9 Disorder of thyroid, unspecified; Z95.5 Presence of coronary angioplasty implant and graft; Z79.01 Long term (current) use of anticoagulants; Z85.46 Personal history of malignant neoplasm of prostate; Z86.73 Personal history of transient ischemic attack (TIA), and cerebral infarction without residual deficits; Z87.891 Personal history of nicotine dependence; Z92.3 Personal history of irradiation; Z95.0 Presence of cardiac pacemaker
CPT/HCPCS: 36415; 74176; 80048; 81001; 85025; 85610; 85730; 99284

== ENCOUNTER 2020-08-21 19:46 | Observation (INO) | payer MEDICARE ==
--- NOTE | 2020-08-21 20:04 | ED ---
Male Urogenital HPI - General Chief complaint: Urogenital Stated complaint: Bladder problems Time Seen by Provider: 08/21/20 19:56 Source: patient, family, RN notes reviewed, old records reviewed Mode of arrival: wheelchair Limitations: no limitations - History of Present Illness Initial comments: This is a 72-year-old male DF for evaluation patient is on Coumadin. Patient is in the ER today for persistent bleeding difficulty urinating. Patient does straight cath. Patient is on Coumadin again. Patient was in the ER earlier today for blood in the ER. Presents today for repeat current urination issues Complaint: dysuria (Hematuria) -: days(s) Location: penis Radiation: none Severity: mild Quality: aching Consistency: intermittent Improves with: none Worsens with: urination indwelling catheter (Patient does straight cath) Reports: urinary retention, blood in urine - Related Data Home Medications Medication Instructions Recorded Confirmed Aspirin 81 mg PO DAILY@0700 09/02/13 08/21/20 Baclofen [Lioresal] 10 mg PO TID@0700,1500,2300 09/02/13 08/21/20 Digoxin [Lanoxin] 125 mcg PO HS@229909/02/13 08/21/20 Isosorbide Mononitrate [Imdur] 60 mg PO HS@229909/02/13 08/21/20 Ramipril [Altace] 10 mg PO DAILY@182909/02/13 08/21/20 Simvastatin [Zocor] 40 mg PO HS@182909/02/13 08/21/20 Warfarin [Coumadin] 2.5 mg PO SUTH@182909/02/13 08/21/20 Warfarin [Coumadin] 1.25 mg PO MOTUWEFRSA@18303/06/18 08/21/20 Tamsulosin [Flomax] 0.4 mg PO BID@0700,1830 09/03/19 08/21/20 Gabapentin [Neurontin] 300 mg PO TID@0700,1500,2300 04/20/20 08/21/20 Metoprolol Tartrate [Lopressor] 75 mg PO BID@0700,1830 04/20/20 08/21/20 Allergies Allergy/AdvReac Type Severity Reaction Status Date / Time No Known Allergies Allergy Verified 08/21/20 20:00 Review of Systems ROS Statement: Those systems with pertinent positive or pertinent negative responses have been documented in the HPI. ROS Other: All systems not noted in ROS Statement are negative. Past Medical History Past Medical History: Atrial Fibrillation, Cancer, CVA/TIA, Hyperlipidemia, Hypertension, Osteoarthritis (OA), Prostate Disorder, Thyroid Disorder Additional Past Medical History / Comment(s): MS, hx. prostate cancer 2015-had radiation. Generator change-01/14/2019 PACEMAKER ONLY, NO DEFIBRILLATOR Last Myocardial Infarction Date:: unk DATE History of Any Multi-Drug Resistant Organisms: None Reported Past Surgical History: Back Surgery, Heart Catheterization, Hernia Repair, Pacemaker Additional Past Surgical History / Comment(s): PACEMAKER, Generator change- 01/14/2019 Past Anesthesia/Blood Transfusion Reactions: No Reported Reaction Type of Cardiac Device: Permanent Pacemaker Device Placement Date:: 05/02/11 Past Psychological History: No Psychological Hx Reported Smoking Status: Former smoker Past Alcohol Use History: Occasional Past Drug Use History: None Reported - Past Family History Mother Family Medical History: No Reported History Sister(s) Family Medical History: Cancer Additional Family Medical History / Comment(s): melanoma General Exam Limitations: no limitations General appearance: alert, in no apparent distress Head exam: Present: atraumatic, normocephalic, normal inspection Eye exam: Present: normal appearance, PERRL, EOMI. Absent: scleral icterus, conjunctival injection, periorbital swelling ENT exam: Present: normal exam, mucous membranes moist Neck exam: Present: normal inspection. Absent: tenderness, meningismus, lymphadenopathy Respiratory exam: Present: normal lung sounds bilaterally. Absent: respiratory distress, wheezes, rales, rhonchi, stridor Cardiovascular Exam: Present: regular rate, normal rhythm, normal heart sounds. Absent: systolic murmur, diastolic murmur, rubs, gallop, clicks GI/Abdominal exam: Present: soft, normal bowel sounds. Absent: distended, tenderness, guarding, rebound, rigid Extremities exam: Present: normal inspection, full ROM, normal capillary refill. Absent: tenderness, pedal edema, joint swelling, calf tenderness Back exam: Present: normal inspection Neurological exam: Present: alert, oriented X3, CN II-XII intact Psychiatric exam: Present: normal affect, normal mood Skin exam: Present: warm, dry, intact, normal color. Absent: rash Course Vital Signs 08/21/20 19:50 Temperature 99.3 F Pulse Rate 100 Respiratory 20 Rate Blood Pressure 145/84 O2 Sat by Pulse 93 L Oximetry - Reevaluation(s) Reevaluation #1: 08/21/20 20:04 Medical records reviewed Reevaluation #2: 08/21/20 20:41 Patient has significant urinary retention here in the ER greater than a liter o ut Bloody urine no clots Reevaluation #3: 08/21/20 20:41 Patient informed results and questions are answered Medical Decision Making - Medical Decision Making 80 male to the ER for evaluation significant hematuria with urinary retention on Coumadin. Patient given Mendenhall catheter here in the ER, will not reverse patien t's INR currently, patient will see urology - Lab Data Result diagrams: 08/21/20 20:20 Disposition Clinical Impression: Incomplete bladder emptying, UTI (urinary tract infection), Retention, urine, Failure of outpatient treatment Disposition: ADMITTED IP TO THIS HOSP Condition: Fair Is patient prescribed a controlled substance at d/c from ED?: No
[2020-08-21] MEDS ORDERED: NALOXONE 0.4 MG/ML 1 ML VIAL IV PRN (20:09)
[2020-08-21] MEDS ORDERED: MORPHINE SULFATE 4 MG/ML SYRINGE IV PRN (20:09)
[2020-08-21] MEDS ORDERED: SODIUM CHLORIDE 0.9% 1,000 ML IV STA (20:11)
[2020-08-21] MEDS: ACETAMINOPHEN TAB 325 MG TAB PO PRN (20:29)
[2020-08-21] MEDS: SODIUM CHLORIDE 0.9% 1,000 ML IV SCH (20:29)
[2020-08-21 20:31] LABS: Basophils % (A) 0 %; Eosinophils # (A) 0.1 k/uL (0-0.7); Eosinophils % (A) 2 %; HCT 38.5 % (39.0-53.0); Lymphocytes # (A) 0.4 k/uL (1.0-4.8); Lymphocytes % (A) 6 %; MCHC 33.8 g/dL (31.0-37.0); MCV 88.6 fL (80.0-100.0); Mean Platelet Volume 7.8; Monocytes # (A) 0.7 k/uL (0-1.0); Monocytes % (A) 10 %; Neutrophils # (A) 5.8 k/uL (1.3-7.7); Neutrophils % (A) 80 %; Platelet Count 139 k/uL (150-450); RBC 4.35 m/uL (4.30-5.90); RDW 13.6 % (11.5-15.5); WBC 7.2 k/uL (3.8-10.6)
[2020-08-21 20:54] LABS: INR 2.4 (<1.2); Partial Thromboplastin Time 32.2 sec (22.0-30.0); Prothrombin Time 23.7 sec (9.0-12.0)
[2020-08-21 21:18] LABS: Albumin 3.9 g/dL (3.5-5.0); Calcium 8.9 mg/dL (8.4-10.2); Magnesium 1.9 mg/dL (1.6-2.3); Phosphorus 2.5 mg/dL (2.5-4.5); Potassium 4.8 mmol/L (3.5-5.1); Total Bilirubin 0.6 mg/dL (0.2-1.3); Total Protein 6.4 g/dL (6.3-8.2)
[2020-08-21] MEDS: GABAPENTIN 300 MG CAP PO SCH (23:08)
[2020-08-21] MEDS: ISOSORBIDE MONONITRATE ER 60 MG TAB.ER.24H PO SCH (23:09)
[2020-08-21] MEDS: BACLOFEN 10 MG TAB PO SCH (23:09)
[2020-08-21] MEDS: DIGOXIN 125 MCG TAB PO SCH (23:10)
[2020-08-22] MEDS: SODIUM CHLORIDE 0.9% 1,000 ML IV SCH ×2 (05:46→15:37)
[2020-08-22] MEDS: TAMSULOSIN 0.4 MG CAP.ER.24H PO SCH ×2 (08:48→18:05)
[2020-08-22] MEDS: BACLOFEN 10 MG TAB PO SCH ×3 (08:48→23:27)
[2020-08-22] MEDS: GABAPENTIN 300 MG CAP PO SCH ×3 (08:48→23:27)
[2020-08-22] MEDS: METOPROLOL TARTRATE 25 MG TAB PO SCH ×2 (08:48→18:05)
[2020-08-22 09:36] LABS: HCT 35.5 % (39.6-50.0); MCH 28.4 pg (27.0-32.0); MCV 91.7 fL (80.0-97.0); Mean Platelet Volume 10.5 fL (9.5-12.2); Platelet Count 125 X 10*3/uL (140-440); RBC 3.87 X 10*6/uL (4.40-5.60); RDW 13.6 % (11.5-14.5); WBC 9.15 X 10*3/uL (4.50-10.00)
[2020-08-22 09:47] LABS: African American GFR (CKD) 60.6 (60.0-200.0); Anion Gap 6.5 mmol/L (4.00-12.00); BUN/Creat Ratio 19.23 Ratio (12.00-20.00); Calcium 7.9 mg/dL (8.7-10.3); Carbon Dioxide 27.5 mmol/L (21.6-31.8); Non-African American GFR(CKD) 52.3 (60.0-200.0); Potassium 4.5 mmol/L (3.5-5.5)
[2020-08-22 10:09] LABS: Basophils # (A) 0.03 X 10*3/uL (0.00-0.10); Basophils % (A) 0.3 %; Eosinophils # (A) 0.11 X 10*3/uL (0.04-0.35); Eosinophils % (A) 1.2 %; Lymphocytes # (A) 0.86 X 10*3/uL (0.90-5.00); Lymphocytes % (A) 9.4 %; Monocytes # (A) 1.77 X 10*3/uL (0.20-1.00); Monocytes % (A) 19.3 %; Neutrophils # (A) 6.36 X 10*3/uL (1.80-7.70); Neutrophils % (A) 69.6 %
--- NOTE | 2020-08-22 13:11 | P.GSCN ---
History of Present Illness Consult date: 08/22/20 Reason for Consult: Gross Hematuria/Urinary Retention History of present illness: Mr Peralta is a 80 yo male with hx of urinary retention currently been managed by [facility], he follow us up as an outpatient with Dr Padilla. He indicated he noticed gr oss hematuria yesterday and presented to the ED for that. He is also complaining of weakness and indicated he had a possible subjective fever at home, but was afebrile on presentation to the ED. He underwent a CT which showed irregularity in the bladder concerning for bladder mass vs blood clot. A easton catheter was placed in the ED with return of 1.5 L of urine. He denies any flank pain or dysuria at this time, no previous hx of gross hematuria. His urine this am is clear, he denies any weakness at this time. In the ED his UA was concerning for UTI, but no culture was sent. He is currently on Ceftrixone. Review of Systems - Constitutional Reports fever, Reports weakness, Denies chills - Respiratory Denies cough, Denies 7 - Gastrointestinal Reports as per HPI - Genitourinary Reports hematuria, Denies dysuria, Denies flank pain - Neurological Denies headaches, Denies syncope Past Medical History Past Medical History: Atrial Fibrillation, Cancer, CVA/TIA, Hyperlipidemia, Hypertension, Osteoarthritis (OA), Prostate Disorder, Thyroid Disorder Additional Past Medical History / Comment(s): MS, hx. prostate cancer 2014-had radiation. Generator change-01/14/2019 PACEMAKER ONLY, NO DEFIBRILLATOR Last Myocardial Infarction Date:: unk DATE History of Any Multi-Drug Resistant Organisms: None Reported Past Surgical History: Back Surgery, Heart Catheterization, Hernia Repair, Pacemaker Additional Past Surgical History / Comment(s): PACEMAKER, Generator change- Past Anesthesia/Blood Transfusion Reactions: No Reported Reaction Type of Cardiac Device: Permanent Pacemaker Device Placement Date:: 05/02/11 Past Psychological History: No Psychological Hx Reported Smoking Status: Former smoker Past Alcohol Use History: Occasional Past Drug Use History: None Reported - Past Family History Mother Family Medical History: No Reported History Sister(s) Family Medical History: Cancer Additional Family Medical History / Comment(s): melanoma Medications and Allergies Home Medications Medication Instructions Recorded Confirmed Type Aspirin 81 mg PO DAILY@0700 09/02/13 08/21/20 History Baclofen [Lioresal] 10 mg PO TID@0700,1500,2300 09/02/13 08/21/20 History Digoxin [Lanoxin] 125 mcg PO HS@23009/02/13 08/21/20 History Isosorbide Mononitrate [Imdur] 60 mg PO HS@2300 09/02/13 08/21/20 History Ramipril [Altace] 10 mg PO DAILY@182909/02/13 08/21/20 History Simvastatin [Zocor] 40 mg PO HS@182909/02/13 08/21/20 History Warfarin [Coumadin] 2.5 mg PO SUTH@182909/02/13 08/21/20 History Warfarin [Coumadin] 1.25 mg PO MOTUWEFRSA@182903/06/18 08/21/20 History Tamsulosin [Flomax] 0.4 mg PO BID@0700,1830 09/03/19 08/21/20 History Gabapentin [Neurontin] 300 mg PO TID@0700,1500,2300 04/20/20 08/21/20 History Metoprolol Tartrate [Lopressor] 75 mg PO BID@0700,1830 04/20/20 08/21/20 History Allergies Allergy/AdvReac Type Severity Reaction Status Date / Time No Known Allergies Allergy Verified 08/21/20 20:00 Surgical - Exam Vital Signs Temp Pulse Resp BP Pulse Ox 99.3 F 100 20 145/84 93 L 08/21/20 19:50 08/21/20 19:50 08/21/20 19:50 08/21/20 19:50 08/21/20 19:50 - General well developed, well nourished, no distress, no pain - Eyes PERRL, normal ocular movement - ENT normal nares, normal mucosa - Respiratory normal expansion, normal respiratory effort - Abdomen Abdomen: soft, non tender - Genitourinary easton clear yellow urine normal penis with no external lesions - Psychiatric oriented to time, oriented to person, oriented to place Results - Labs 08/22/20 05:03 08/22/20 05:03 Abnormal Lab Results - Last 24 Hours (Table) 08/21/20 08/21/20 08/21/20 Range/Units 20:20 20:20 20:20 Hct 38.5 L (39.0-53.0) % Plt Count 139 L (150-450) k/uL Lymphocytes # 0.4 L (1.0-4.8) k/uL PT 23.7 H (9.0-12.0) sec INR 2.4 H (<1.2) APTT 32.2 H (22.0-30.0) sec BUN 32 H (9-20) mg/dL Creatinine 1.47 H (0.66-1.25) mg/dL Glucose 139 H (74-99) mg/dL Diabetes panel 08/21/20 Range/Units 20:20 Sodium 137 (137-145) mmol/L Potassium 4.8 (3.5-5.1) mmol/L Chloride 105 (98-107) mmol/L Carbon Dioxide 26 (22-30) mmol/L BUN 32 H (9-20) mg/dL Creatinine 1.47 H (0.66-1.25) mg/dL Glucose 139 H (74-99) mg/dL Calcium 8.9 (8.4-10.2) mg/dL AST 23 (17-59) U/L ALT 12 (4-49) U/L Alkaline Phosphatase 66 (38-126) U/L Total Protein 6.4 (6.3-8.2) g/dL Albumin 3.9 (3.5-5.0) g/dL Calcium panel 08/21/20 Range/Units 20:20 Calcium 8.9 (8.4-10.2) mg/dL Phosphorus 2.5 (2.5-4.5) mg/dL Albumin 3.9 (3.5-5.0) g/dL Pituitary panel 08/21/20 Range/Units 20:20 Sodium 137 (137-145) mmol/L Potassium 4.8 (3.5-5.1) mmol/L Chloride 105 (98-107) mmol/L Carbon Dioxide 26 (22-30) mmol/L BUN 32 H (9-20) mg/dL Creatinine 1.47 H (0.66-1.25) mg/dL Glucose 139 H (74-99) mg/dL Calcium 8.9 (8.4-10.2) mg/dL Adrenal panel 08/21/20 Range/Units 20:20 Sodium 137 (137-145) mmol/L Potassium 4.8 (3.5-5.1) mmol/L Chloride 105 (98-107) mmol/L Carbon Dioxide 26 (22-30) mmol/L BUN 32 H (9-20) mg/dL Creatinine 1.47 H (0.66-1.25) mg/dL Glucose 139 H (74-99) mg/dL Calcium 8.9 (8.4-10.2) mg/dL Total Bilirubin 0.6 (0.2-1.3) mg/dL AST 23 (17-59) U/L ALT 12 (4-49) U/L Alkaline Phosphatase 66 (38-126) U/L Total Protein 6.4 (6.3-8.2) g/dL Albumin 3.9 (3.5-5.0) g/dL - Imaging CT scan - abdomen: image reviewed (Image reviewed, CT concerning for bladder mass vs blod clot) Assessment and Plan Assessment: 80 yo male with hx of urinary retention, been managed by [facility]. presented to the E D with gross hematuria and weakness. UA was concerning for UTI. He is currently on ceftrixone, Weakness and gross hematuria resolved. He underwent a CT which is concerning for bladder mass. Plan: -Gross hematuria has resolved now, ok to continue his anticogulation -Will need outpatient cystoscopy to evaluate for the possible bladder mass. He follow us up with Dr Padilla. -Obtain a urine culture given his symptoms of fever and weakness on presentation. Continue Ceftrixone, Will need minimum of 7 days of abx based on culture susceptibility.
[2020-08-22] MEDS: ACETAMINOPHEN TAB 325 MG TAB PO PRN ×2 (14:15→23:27)
--- NOTE | 2020-08-22 14:50 | P.HPIM ---
History of Present Illness H&P Date: 08/22/20 Chief Complaint: Gross hematuria/urinary retention 80 yo male with history of atrial fibrillation, hypertension, hyperlipidemia, hypothyroidism and urinary retention, presented to ED after he noticed gross hematuria yesterday. He is also complaining of weakness and indicated he had a possible subjective fever at home, but was afebrile on presentation to the ED. He underwent a CT which showed irregularity in the bladder concerning for bladder mass vs blood clot. A easton catheter was placed in the ED with return of 1.5 L of urine. He denies any flank pain or dysuria at this time, no previous hx of gross hematuria. His urine this am is clear, he denies any weakness at this time. In the ED his UA was concerning for UTI, but no culture was sent. He is currently on Ceftrixone. Review of Systems REVIEW OF SYSTEMS: CONSTITUTIONAL: No fever, no malaise, no fatigue. HEENT: No recent visual problems or hearing problems. Denied any sore throat. CARDIOVASCULAR: No chest pain, orthopnea, PND, no palpitations, no syncope. PULMONARY: No shortness of breath, no cough, no hemoptysis. GASTROINTESTINAL: No diarrhea, no nausea, no vomiting, no abdominal pain. NEUROLOGICAL: No headaches, no weakness, no numbness. HEMATOLOGICAL: Denies any bleeding or petechiae. GENITOURINARY: Hematuria and urinary retention. MUSCULOSKELETAL/RHEUMATOLOGICAL: Denies any joint pain, swelling, or any muscle pain. ENDOCRINE: Denies any polyuria or polydipsia. The rest of the 14-point review of systems is negative. Past Medical History Past Medical History: Atrial Fibrillation, Cancer, CVA/TIA, Hyperlipidemia, Hypertension, Osteoarthritis (OA), Prostate Disorder, Thyroid Disorder Additional Past Medical History / Comment(s): MS, hx. prostate cancer 2015-had radiation. Generator change-01/14/2019 PACEMAKER ONLY, NO DEFIBRILLATOR Last Myocardial Infarction Date:: unk DATE History of Any Multi-Drug Resistant Organisms: None Reported Past Surgical History: Back Surgery, Heart Catheterization, Hernia Repair, Pacemaker Additional Past Surgical History / Comment(s): PACEMAKER, Generator change- 01/14/2019 Past Anesthesia/Blood Transfusion Reactions: No Reported Reaction Type of Cardiac Device: Permanent Pacemaker Device Placement Date:: 05/02/11 Past Psychological History: No Psychological Hx Reported Smoking Status: Former smoker Past Alcohol Use History: Occasional Past Drug Use History: None Reported - Past Family History Mother Family Medical History: No Reported History Sister(s) Family Medical History: Cancer Additional Family Medical History / Comment(s): melanoma Medications and Allergies Home Medications Medication Instructions Recorded Confirmed Type Aspirin 81 mg PO DAILY@0700 09/02/13 08/21/20 History Baclofen [Lioresal] 10 mg PO TID@0700,1500,2300 09/02/13 08/21/20 History Digoxin [Lanoxin] 125 mcg PO HS@2300 09/02/13 08/21/20 History Isosorbide Mononitrate [Imdur] 60 mg PO HS@2300 09/02/13 08/21/20 History Ramipril [Altace] 10 mg PO DAILY@18309/02/13 08/21/20 History Simvastatin [Zocor] 40 mg PO HS@182909/02/13 08/21/20 History Warfarin [Coumadin] 2.5 mg PO SUTH@182909/02/13 08/21/20 History Warfarin [Coumadin] 1.25 mg PO MOTUWEFRSA@1830 03/06/18 08/21/20 History Tamsulosin [Flomax] 0.4 mg PO BID@0700,1830 09/03/19 08/21/20 History Gabapentin [Neurontin] 300 mg PO TID@0700,1500,2300 04/20/20 08/21/20 History Metoprolol Tartrate [Lopressor] 75 mg PO BID@0700,1830 04/20/20 08/21/20 History Allergies Allergy/AdvReac Type Severity Reaction Status Date / Time No Known Allergies Allergy Verified 08/21/20 20:00 Physical Exam Vitals: Vital Signs Temp Pulse Pulse Resp BP BP Pulse Ox 08/22/20 07:00 98.4 F 85 20 119/68 96 08/22/20 02:00 98.2 F 70 17 131/66 91 L 08/21/20 21:53 98.7 F 79 17 163/86 96 08/21/20 21:21 78 16 133/88 97 08/21/20 19:50 99.3 F 100 20 145/84 93 L Intake and Output 08/21/20 08/22/20 08/22/20 22:59 06:59 14:59 Intake Total 240 Output Total 850 300 Balance -850 -300 240 Intake: Oral 240 Output: Urine 850 300 Other: Voiding Method Indwelling Catheter Weight 77.111 kg PHYSICAL EXAMINATION: GENERAL: The patient is alert and oriented x3, not in any acute distress. Well developed, well nourished. HEENT: Pupils are round and equally reacting to light. EOMI. No scleral icterus. No conjunctival pallor. Normocephalic, atraumatic. No pharyngeal erythema. No thyromegaly. CARDIOVASCULAR: S1 and S2 present. No murmurs, rubs, or gallops. PULMONARY: Chest is clear to auscultation, no wheezing or crackles. ABDOMEN: Soft, nontender, nondistended, normoactive bowel sounds. No palpable o rganomegaly. MUSCULOSKELETAL: No joint swelling or deformity. EXTREMITIES: No cyanosis, clubbing, or pedal edema. NEUROLOGICAL: Gross neurological examination did not reveal any focal deficits. SKIN: No rashes. Results CBC & Chem 7: 08/22/20 05:03 08/22/20 05:03 Labs: Abnormal Lab Results - Last 24 Hours (Table) 08/21/20 08/21/20 08/21/20 Range/Units 20:20 20:20 20:20 RBC (4.40-5.60) X 10*6/uL Hgb (13.0-17.0) g/dL Hct 38.5 L (39.0-53.0) % MCHC (32.0-37.0) g/dL Plt Count 139 L (150-450) k/uL Plt Count Comment Lymphocytes # 0.4 L (1.0-4.8) k/uL Monocytes # (0.20-1.00) X 10*3/uL PT 23.7 H (9.0-12.0) sec INR 2.4 H (<1.2) APTT 32.2 H (22.0-30.0) sec BUN 32 H (9-20) mg/dL Creatinine 1.47 H (0.66-1.25) mg/dL Est GFR (CKD-EPI)NonAf (60.0-200.0) Glucose 139 H (74-99) mg/dL Calcium (8.7-10.3) mg/dL 08/22/20 08/22/20 Range/Units 05:03 05:03 RBC 3.87 L (4.40-5.60) X 10*6/uL Hgb 11.0 L (13.0-17.0) g/dL Hct 35.5 L (39.0-53.0) % MCHC 31.0 L (32.0-37.0) g/dL Plt Count 125 L (150-450) k/uL Plt Count Comment DECREASED A Lymphocytes # 0.86 L (1.0-4.8) k/uL Monocytes # 1.77 H (0.20-1.00) X 10*3/uL PT (9.0-12.0) sec INR (<1.2) APTT (22.0-30.0) sec BUN (9-20) mg/dL Creatinine (0.66-1.25) mg/dL Est GFR (CKD-EPI)NonAf 52.3 L (60.0-200.0) Glucose 118 H (74-99) mg/dL Calcium 7.9 L (8.7-10.3) mg/dL Thrombosis Risk Factor Assmnt - Choose All That Apply Any of the Below Risk Factors Present?: No Other Risk Factors: No Other congenital or acquired thrombophilia - If yes, enter type in comment: No Thrombosis Risk Factor Assessment Level: Very Low Risk Assessment and Plan Assessment: 1. Hematuria/UTI; - patient is started on Rocephin 1 g IV daily; urine and blood cultures are obtained; Coumadin is placed on hold; urology is consulted; hematuria has resolved and patient has been cleared to continue with anticoagulation therapy; patient will need cystoscopy as an outpatient to evaluate for possibility of a bladder mass - Patient will continue with IV Rocephin with further tailoring of therapy once urine culture is available 2. Hypertension; continue with home dose of 10 mg daily and metoprolol 75 mg twice a day, Imdur 60 mg daily 3. Hyperlipidemia; continue with home statin therapy Zocor 40 mg daily at bedtime 4. Atrial fibrillation; patient is rate controlled on digoxin 125 MCG daily along with metoprolol 75 mg twice a day; patient is anticoagulated with Coumadin which is placed on hold due to hematuria; urology evaluated patient and cleared to continue Coumadin therapy 5. History of CVA/TIA; continue with home statin therapy; aspirin placed on hold due to hematuria DVT prophylaxis; SCDs only due to hematuria CODE STATUS; full code
[2020-08-22 15:33] LABS: INR 2.6 (<1.2); Prothrombin Time 24.8 sec (9.0-12.0)
[2020-08-22] MEDS ORDERED: lisinopriL 20 MG TAB PO SCH (18:30)
[2020-08-22] MEDS ORDERED: ATORVASTATIN 20 MG TAB PO SCH (18:30)
[2020-08-22] MEDS ORDERED: WARFARIN 2 MG TAB PO ONE (19:00)
[2020-08-22] MEDS: ISOSORBIDE MONONITRATE ER 60 MG TAB.ER.24H PO SCH (23:27)
[2020-08-22] MEDS: DIGOXIN 125 MCG TAB PO SCH (23:28)
[2020-08-23 03:20] VITALS: RESP 16
[2020-08-23] MEDS: SODIUM CHLORIDE 0.9% 1,000 ML IV SCH (05:15)
[2020-08-23 06:40] LABS: Basophils % (A) 0 %; Eosinophils # (A) 0.2 k/uL (0-0.7); Eosinophils % (A) 2 %; HCT 35.4 % (39.0-53.0); HGB 11.8 gm/dL (13.0-17.5); Lymphocytes # (A) 0.6 k/uL (1.0-4.8); Lymphocytes % (A) 8 %; MCH 29.8 pg (25.0-35.0); MCHC 33.4 g/dL (31.0-37.0); MCV 89.3 fL (80.0-100.0); Mean Platelet Volume 7.3; Monocytes # (A) 0.7 k/uL (0-1.0); Monocytes % (A) 10 %; Neutrophils # (A) 5.8 k/uL (1.3-7.7); Neutrophils % (A) 78 %; Platelet Count 118 k/uL (150-450); RBC 3.96 m/uL (4.30-5.90); RDW 13.6 % (11.5-15.5); WBC 7.4 k/uL (3.8-10.6)
[2020-08-23 06:50] LABS: INR 2.2 (<1.2); Prothrombin Time 21.7 sec (9.0-12.0)
[2020-08-23 06:56] LABS: African American GFR (CKD) 72 (>60 ml/min/1.73 sqM); Anion Gap 6 mmol/L; Blood Urea Nitrogen 18 mg/dL (9-20); Calcium 8.5 mg/dL (8.4-10.2); Carbon Dioxide 26 mmol/L (22-30); Chloride 107 mmol/L (98-107); Glucose 119 mg/dL (74-99); Non-African American GFR(CKD) 62 (>60 ml/min/1.73 sqM); Potassium 4.4 mmol/L (3.5-5.1); Sodium 139 mmol/L (137-145)
[2020-08-23] MEDS ORDERED: ASPIRIN 81 MG PO SCH (07:00)
[2020-08-23] MEDS: GABAPENTIN 300 MG CAP PO SCH (08:55)
[2020-08-23] MEDS: BACLOFEN 10 MG TAB PO SCH (08:55)
[2020-08-23] MEDS: METOPROLOL TARTRATE 25 MG TAB PO SCH (08:56)
[2020-08-23] MEDS: TAMSULOSIN 0.4 MG CAP.ER.24H PO SCH (08:56)
[2020-08-23 09:23] VITALS: BP 143/76; PULSE 68; TEMP 98
--- NOTE | 2020-08-23 16:44 | P.DS ---
Providers Date of admission: 08/21/20 20:09 Expected date of discharge: 08/23/20 Attending physician: Rip Martinez Consults: 08/21/20 20:09 Consult Physician Routine Consulting Provider: Marcelo Lacey Consult Reason/Comments: uti Do you want consulting provider notified?: Yes Primary care physician: Jeison Reyes Hospital Course: Final diagnosis 1. Hematuria/UTI 2. Hypertension 3. Hyperlipidemia 4. Atrial fibrillation 5. History of CVA/TIA 6. DVT prophylaxis 7. full code Discharge disposition Patient is being discharged in a stable condition with guarded prognosis to home. Patient will follow-up with Dr. Reyes in the outpatient setting upon discharge. Patient is also instructed to follow-up with urology Dr. Padilla as scheduled. Patient will continue with oral antibiotics in the form of Ceftin 500 mg twice daily for the next 1 week. Patient to continue with indwelling Easton catheter until urology follow-up. Total time taken is greater than 35 minutes. Hospital course Chief Complaint: Gross hematuria/urinary retention 80 yo male with history of atrial fibrillation, hypertension, hyperlipidemia, hypothyroidism and urinary retention, presented to ED after he noticed gross hematuria yesterday. He is also complaining of weakness and indicated he had a possible subjective fever at home, but was afebrile on presentation to the ED. He underwent a CT which showed irregularity in the bladder concerning for bladder mass vs blood clot. A easton catheter was placed in the ED with return of 1.5 L of urine. He denies any flank pain or dysuria at this time, no previous hx of gross hematuria. His urine this am is clear, he denies any weakness at this time. In the ED his UA was concerning for UTI, but no culture was sent. He is currently on Ceftrixone. 08/23/2020 Patient is seen and evaluated in follow-up currently no acute overnight issues. Hematuria has resolved and patient has been resumed on anticoagulant. Patient's hemoglobin is stable at 11.8 with no further bleeding noted. Coumadin is resumed and INR today is 2.2 and will continue with current regimen with close outpatient monitoring. Patient instructed to follow-up with urology for cystoscopy in the near future and an appointment was made. Patient to continue with indwelling Easton catheter until urology follow-up per urology recommendations. Currently no reports of chest pain, shortness of breath, or palpitations. Patient is afebrile. No reports of nausea or vomiting and patient is tolerating diet. Patient will be discharged home today. Guarded prognosis. On exam vital signs are stable. Cardio S1, S2 are muffled. Respiratory system shows diminished breath sounds at the bases with no wheezing or rhonchi noted. Abdomen is soft and nontender. Nervous system shows no focal deficits. Please refer to medication reconciliation sheet for a list of medications. Patient Condition at Discharge: Fair Plan - Discharge Summary Discharge Rx Participant: No New Discharge Prescriptions: New Cefuroxime Axetil [Ceftin] 500 mg PO BID 7 Days #14 tab Acetaminophen Tab [Tylenol] 650 mg PO Q6HR PRN tab PRN Reason: Mild Pain Or Fever > 100.5 Continue Ramipril [Altace] 10 mg PO DAILY@1830 Isosorbide Mononitrate [Imdur] 60 mg PO HS@2300 Baclofen [Lioresal] 10 mg PO TID@0700,1500,2300 Warfarin [Coumadin] 2.5 mg PO SUTH@1830 Aspirin 81 mg PO DAILY@0700 Digoxin [Lanoxin] 125 mcg PO HS@2300 Simvastatin [Zocor] 40 mg PO HS@1830 Warfarin [Coumadin] 1.25 mg PO MOTUWEFRSA@1830 Tamsulosin [Flomax] 0.4 mg PO BID@0700,1830 Metoprolol Tartrate [Lopressor] 75 mg PO BID@0700,1830 Gabapentin [Neurontin] 300 mg PO TID@0700,1500,2300 Discharge Medication List Aspirin 81 mg PO DAILY@0700 09/02/13 [History] Baclofen [Lioresal] 10 mg PO TID@0700,1500,2300 09/02/13 [History] Digoxin [Lanoxin] 125 mcg PO HS@2300 09/02/13 [History] Isosorbide Mononitrate [Imdur] 60 mg PO HS@2300 09/02/13 [History] Ramipril [Altace] 10 mg PO DAILY@1830 09/02/13 [History] Simvastatin [Zocor] 40 mg PO HS@1830 09/02/13 [History] Warfarin [Coumadin] 2.5 mg PO SUTH@1830 05/13/14 [History] Warfarin [Coumadin] 1.25 mg PO MOTUWEFRSA@1830 03/06/18 [History] Tamsulosin [Flomax] 0.4 mg PO BID@0700,1830 09/03/19 [History] Gabapentin [Neurontin] 300 mg PO TID@0700,1500,2300 04/20/20 [History] Metoprolol Tartrate [Lopressor] 75 mg PO BID@0700,1830 04/20/20 [History] Acetaminophen Tab [Tylenol] 650 mg PO Q6HR PRN tab 08/23/20 [Rx] Cefuroxime Axetil [Ceftin] 500 mg PO BID 7 Days #14 tab 08/23/20 [Rx] Follow up Appointment(s)/Referral(s): Jeison Reyes MD [Primary Care Provider] - 1-2 days Jonas Padilla MD [STAFF PHYSICIAN] - 09/03/20 10:00 am (cystoscopy ) Patient Instructions/Handouts: Urinary Retention in Men (GEN) Activity/Diet/Wound Care/Special Instructions: Activity Limited until follow-up Follow-up with primary care provider upon discharge Continue with antibiotics until finished Continue with indwelling Easton catheter until urology follow-up Contact urology prior to appointment to discuss if anticoagulant needs to be held prior to appointment Continue to monitor PT/INR for Coumadin therapy Discharge Disposition: HOME SELF-CARE
[2020-08-23] MEDS ORDERED: WARFARIN 2 MG TAB PO ONE (18:00)
== END 2020-08-23 13:33 | disposition home or self-care (01) ==
LOC: EC 19:46 → 6NMEDSUR 20:09
PROVIDERS: ADMIT Hospitalist; ATTEND Hospitalist
DX: N39.0 Urinary tract infection, site not specified (principal); R31.0 Gross hematuria; I48.91 Unspecified atrial fibrillation; I10 Essential (primary) hypertension; E78.5 Hyperlipidemia, unspecified; E03.9 Hypothyroidism, unspecified; G35 Multiple sclerosis; M19.90 Unspecified osteoarthritis, unspecified site; R33.9 Retention of urine, unspecified; Z20.822 Contact with and (suspected) exposure to COVID-19; Z79.01 Long term (current) use of anticoagulants; Z79.82 Long term (current) use of aspirin; Z79.899 Other long term (current) drug therapy; Z86.73 Personal history of transient ischemic attack (TIA), and cerebral infarction without residual deficits; Z85.46 Personal history of malignant neoplasm of prostate; Z95.0 Presence of cardiac pacemaker; Z92.3 Personal history of irradiation; Z87.891 Personal history of nicotine dependence; Z98.890 Other specified postprocedural states; Z80.8 Family history of malignant neoplasm of other organs or systems
CPT/HCPCS: 99284; 96361; 96366 ×2; 96365; 51702; 36415; 80053; 80048 ×3; 83735; 84100; 85025 ×3; 85610 ×3; 85730; 81001; 87086; 87636; 74176; G0378 ×3; J0696 ×2

== ENCOUNTER 2021-06-11 21:13 | Inpatient (IN) | payer MEDICARE ==
[2021-06-11] MEDS ORDERED: ACETAMINOPHEN TAB 500 MG TAB PO STA (21:36)
[2021-06-11] MEDS ORDERED: SODIUM CHLORIDE 0.9% 1,000 ML IV STA (21:37)
--- NOTE | 2021-06-11 22:28 | ED ---
Weakness HPI - General Chief complaint: Weakness Stated complaint: Weakness Source: patient, EMS Mode of arrival: EMS - History of Present Illness Initial comments: 81-year-old male past medical history of A. fib, CVA, hypertension, hyperlipidemia, MS present to the emergency department with weakness. He normally ambulates with a walker. States that he is very unsteady on his feet today and had difficulty getting up from a chair. Symptoms became worse over the course of the night. He has a history of right leg weakness but states that his generalized weakness is new. No recorded fevers at home. Reports he frequently gets urinary tract infections as he straight caths twice a day. He denies cough or chest pain. No abdominal pain. No contacts with similar symptoms. Denies any falls. Appetite has been poor this evening. No other alleviating, precipitating or modifying factors - Related Data Home Medications Medication Instructions Recorded Confirmed Aspirin 81 mg PO DAILY@0700 09/02/13 06/11/21 Baclofen [Lioresal] 10 mg PO TID@0700,1500,2300 09/02/13 06/11/21 Digoxin [Lanoxin] 125 mcg PO HS@2300 09/02/13 06/11/21 Isosorbide Mononitrate [Imdur] 60 mg PO HS@2300 09/02/13 06/11/21 Ramipril [Altace] 10 mg PO DAILY@182909/02/13 06/11/21 Simvastatin [Zocor] 40 mg PO HS@1830 09/02/13 06/11/21 Warfarin [Coumadin] 2.5 mg PO DIRECTED 09/02/13 06/11/21 Warfarin [Coumadin] 1.25 mg PO DIRECTED 03/06/18 06/11/21 Tamsulosin [Flomax] 0.4 mg PO BID@0700,1830 09/03/19 06/11/21 Gabapentin [Neurontin] 300 mg PO TID@0700,1500,2300 04/20/20 06/11/21 Metoprolol Tartrate [Lopressor] 75 mg PO BID@0700,1830 04/20/20 06/11/21 Allergies Allergy/AdvReac Type Severity Reaction Status Date / Time No Known Allergies Allergy Verified 06/11/21 23:24 Review of Systems ROS Statement: Those systems with pertinent positive or pertinent negative responses have been documented in the HPI. ROS Other: All systems not noted in ROS Statement are negative. Past Medical History Past Medical History: Atrial Fibrillation, Cancer, CVA/TIA, Hyperlipidemia, Hypertension, Osteoarthritis (OA), Prostate Disorder, Thyroid Disorder Additional Past Medical History / Comment(s): MS, hx. prostate cancer 2014-had radiation. Generator change-01/14/2019 PACEMAKER ONLY, NO DEFIBRILLATOR Last Myocardial Infarction Date:: unk DATE History of Any Multi-Drug Resistant Organisms: None Reported Past Surgical History: Back Surgery, Heart Catheterization, Hernia Repair, Pacemaker Additional Past Surgical History / Comment(s): PACEMAKER, Generator change- 01/14/2019 Past Anesthesia/Blood Transfusion Reactions: No Reported Reaction Type of Cardiac Device: Permanent Pacemaker Device Placement Date:: 05/02/11 Past Psychological History: No Psychological Hx Reported Smoking Status: Former smoker Past Alcohol Use History: Occasional Past Drug Use History: None Reported - Past Family History Mother Family Medical History: No Reported History Sister(s) Family Medical History: Cancer Additional Family Medical History / Comment(s): melanoma Course Vital Signs 06/11/21 06/11/21 06/12/21 21:17 23:02 00:00 Temperature 99.1 F Pulse Rate 63 80 83 Respiratory 18 18 18 Rate Blood Pressure 166/80 184/97 137/78 O2 Sat by Pulse 96 94 L 93 L Oximetry EKG Findings - EKG Comments: EKG Findings:: EKG demonstrates a paced rhythm with a rate of 71. QRS 114. QTC of 357. Inverted T waves with ST depression 2, 3. V4 through V6. No ST segment elevation. Pacemaker captures appropriately Medical Decision Making - Medical Decision Making Upon arrival patient was placed into room 3. A thorough history and physical e xam was performed. IV access is established laboratory studies are conducted. Patient is assist with straight cath. Laboratory studies are reviewed and demonstrated an INR of 2.6. Potassium mildly high at 5.3. Creatinine up to 1.58 from patient's baseline of 1.1. Troponin 0.038. Urinalysis demonstrates 182 red blood cells, greater than 182 white blood cells, moderate white blood cell clumps and many bacteria. Digoxin 0.86. Covid not detected. Renal ultrasound is performed as patient does complain of flank pain which demonstrates no hydronephrosis. Patient is given a dose of Rocephin and started on normal saline at 130s cc per hour. Tylenol provided. Did recommend admission for antibiotics and fluids for which the patient did agree to. Patient admitted to [facility]. He remained in stable condition awaiting a bed. - Lab Data Result diagrams: 06/11/21 22:04 06/11/21 22:04 Lab Results 06/11/21 06/11/21 06/11/21 Range/Units 22:04 22:04 22:04 WBC 9.5 (3.8-10.6) k/uL RBC 4.85 (4.30-5.90) m/uL Hgb 14.2 (13.0-17.5) gm/dL Hct 43.8 (39.0-53.0) % MCV 90.2 (80.0-100.0) fL MCH 29.3 (25.0-35.0) pg MCHC 32.5 (31.0-37.0) g/dL RDW 13.0 (11.5-15.5) % Plt Count 177 (150-450) k/uL MPV 8.1 Neutrophils % 82 % Lymphocytes % 5 % Monocytes % 9 % Eosinophils % 2 % Basophils % 1 % Neutrophils # 7.8 H (1.3-7.7) k/uL Lymphocytes # 0.5 L (1.0-4.8) k/uL Monocytes # 0.9 (0-1.0) k/uL Eosinophils # 0.2 (0-0.7) k/uL Basophils # 0.1 (0-0.2) k/uL PT 25.8 H (9.0-12.0) sec INR 2.6 H (<1.2) APTT 32.6 H (22.0-30.0) sec Sodium (137-145) mmol/L Potassium (3.5-5.1) mmol/L Chloride (98-107) mmol/L Carbon Dioxide (22-30) mmol/L Anion Gap mmol/L BUN (9-20) mg/dL Creatinine (0.66-1.25) mg/dL Est GFR (CKD-EPI)AfAm (>60 ml/min/1.73 sqM) Est GFR (CKD-EPI)NonAf (>60 ml/min/1.73 sqM) Glucose (74-99) mg/dL Plasma Lactic Acid Justino (0.7-2.0) mmol/L Calcium (8.4-10.2) mg/dL Magnesium (1.6-2.3) mg/dL Total Bilirubin (0.2-1.3) mg/dL AST (17-59) U/L ALT (4-49) U/L Alkaline Phosphatase (38-126) U/L Troponin I (0.000-0.034) ng/mL Total Protein (6.3-8.2) g/dL Albumin (3.5-5.0) g/dL Urine Color Yellow Urine Appearance Turbid (Clear) Urine pH 7.0 (5.0-8.0) Ur Specific [place] 1.015 (1.001-1.035) Urine Protein 2+ H (Negative) Urine Glucose (UA) Negative (Negative) Urine Ketones Negative (Negative) Urine Blood Moderate H (Negative) Urine Nitrite Negative (Negative) Urine Bilirubin Negative (Negative) Urine Urobilinogen <2.0 (<2.0) mg/dL Ur Leukocyte Esterase Large H (Negative) Urine RBC 182 H (0-5) /hpf Urine WBC >182 H (0-5) /hpf Urine WBC Clumps Moderate H (None) /hpf Urine Bacteria Many H (None) /hpf Digoxin ng/mL Coronavirus (PCR) (Not Detectd) 06/11/21 06/11/21 06/11/21 Range/Units 22:04 22:04 22:04 WBC (3.8-10.6) k/uL RBC (4.30-5.90) m/uL Hgb (13.0-17.5) gm/dL Hct (39.0-53.0) % MCV (80.0-100.0) fL MCH (25.0-35.0) pg MCHC (31.0-37.0) g/dL RDW (11.5-15.5) % Plt Count (150-450) k/uL MPV Neutrophils % % Lymphocytes % % Monocytes % % Eosinophils % % Basophils % % Neutrophils # (1.3-7.7) k/uL Lymphocytes # (1.0-4.8) k/uL Monocytes # (0-1.0) k/uL Eosinophils # (0-0.7) k/uL Basophils # (0-0.2) k/uL PT (9.0-12.0) sec INR (<1.2) APTT (22.0-30.0) sec Sodium 138 (137-145) mmol/L Potassium 5.3 H (3.5-5.1) mmol/L Chloride 102 (98-107) mmol/L Carbon Dioxide 26 (22-30) mmol/L Anion Gap 10 mmol/L BUN 34 H (9-20) mg/dL Creatinine 1.58 H (0.66-1.25) mg/dL Est GFR (CKD-EPI)AfAm 48 (>60 ml/min/1.73 sqM) Est GFR (CKD-EPI)NonAf 41 (>60 ml/min/1.73 sqM) Glucose 119 H (74-99) mg/dL Plasma Lactic Acid Justino 1.5 (0.7-2.0) mmol/L Calcium 9.2 (8.4-10.2) mg/dL Magnesium 2.2 (1.6-2.3) mg/dL Total Bilirubin 0.8 (0.2-1.3) mg/dL AST 21 (17-59) U/L ALT 12 (4-49) U/L Alkaline Phosphatase 67 (38-126) U/L Troponin I 0.038 H* (0.000-0.034) ng/mL Total Protein 7.4 (6.3-8.2) g/dL Albumin 4.5 (3.5-5.0) g/dL Urine Color Urine Appearance (Clear) Urine pH (5.0-8.0) Ur Specific [place] (1.001-1.035) Urine Protein (Negative) Urine Glucose (UA) (Negative) Urine Ketones (Negative) Urine Blood (Negative) Urine Nitrite (Negative) Urine Bilirubin (Negative) Urine Urobilinogen (<2.0) mg/dL Ur Leukocyte Esterase (Negative) Urine RBC (0-5) /hpf Urine WBC (0-5) /hpf Urine WBC Clumps (None) /hpf Urine Bacteria (None) /hpf Digoxin ng/mL Coronavirus (PCR) (Not Detectd) 06/11/21 06/11/21 Range/Units 22:04 23:00 WBC (3.8-10.6) k/uL RBC (4.30-5.90) m/uL Hgb (13.0-17.5) gm/dL Hct (39.0-53.0) % MCV (80.0-100.0) fL MCH (25.0-35.0) pg MCHC (31.0-37.0) g/dL RDW (11.5-15.5) % Plt Count (150-450) k/uL MPV Neutrophils % % Lymphocytes % % Monocytes % % Eosinophils % % Basophils % % Neutrophils # (1.3-7.7) k/uL Lymphocytes # (1.0-4.8) k/uL Monocytes # (0-1.0) k/uL Eosinophils # (0-0.7) k/uL Basophils # (0-0.2) k/uL PT (9.0-12.0) sec INR (<1.2) APTT (22.0-30.0) sec Sodium (137-145) mmol/L Potassium (3.5-5.1) mmol/L Chloride (98-107) mmol/L Carbon Dioxide (22-30) mmol/L Anion Gap mmol/L BUN (9-20) mg/dL Creatinine (0.66-1.25) mg/dL Est GFR (CKD-EPI)AfAm (>60 ml/min/1.73 sqM) Est GFR (CKD-EPI)NonAf (>60 ml/min/1.73 sqM) Glucose (74-99) mg/dL Plasma Lactic Acid Justino (0.7-2.0) mmol/L Calcium (8.4-10.2) mg/dL Magnesium (1.6-2.3) mg/dL Total Bilirubin (0.2-1.3) mg/dL AST (17-59) U/L ALT (4-49) U/L Alkaline Phosphatase (38-126) U/L Troponin I (0.000-0.034) ng/mL Total Protein (6.3-8.2) g/dL Albumin (3.5-5.0) g/dL Urine Color Urine Appearance (Clear) Urine pH (5.0-8.0) Ur Specific [place] (1.001-1.035) Urine Protein (Negative) Urine Glucose (UA) (Negative) Urine Ketones (Negative) Urine Blood (Negative) Urine Nitrite (Negative) Urine Bilirubin (Negative) Urine Urobilinogen (<2.0) mg/dL Ur Leukocyte Esterase (Negative) Urine RBC (0-5) /hpf Urine WBC (0-5) /hpf Urine WBC Clumps (None) /hpf Urine Bacteria (None) /hpf Digoxin 0.8 ng/mL Coronavirus (PCR) Not Detected (Not Detectd) Disposition Clinical Impression: Atrial fibrillation, UTI (urinary tract infection), Acute kidney injury, Self- catheterizes urinary bladder Disposition: ADMITTED IP TO THIS HOSP Condition: Stable Is patient prescribed a controlled substance at d/c from ED?: No Decision to Admit Reason: Admit from EC Decision Date: 06/12/21 Decision Time: 00:08
[2021-06-11 23:02] LABS: Basophils # (A) 0.1 k/uL (0-0.2); Basophils % (A) 1 %; Eosinophils # (A) 0.2 k/uL (0-0.7); Eosinophils % (A) 2 %; HCT 43.8 % (39.0-53.0); HGB 14.2 gm/dL (13.0-17.5); Lymphocytes # (A) 0.5 k/uL (1.0-4.8); Lymphocytes % (A) 5 %; MCH 29.3 pg (25.0-35.0); MCHC 32.5 g/dL (31.0-37.0); MCV 90.2 fL (80.0-100.0); Mean Platelet Volume 8.1; Monocytes # (A) 0.9 k/uL (0-1.0); Monocytes % (A) 9 %; Neutrophils # (A) 7.8 k/uL (1.3-7.7); Neutrophils % (A) 82 %; Platelet Count 177 k/uL (150-450); RBC 4.85 m/uL (4.30-5.90); WBC 9.5 k/uL (3.8-10.6)
[2021-06-11 23:06] LABS: Appearance,Urine Turbid (Clear); Bacteria,Urine Many /hpf; Bilirubin,Urine Negative (Negative); Blood,Urine Moderate (Negative); Color,Urine Yellow; Glucose,Urine (UA) Negative (Negative); Ketones,Urine Negative (Negative); Leukocyte Esterase,Urine Large (Negative); Nitrite,Urine Negative (Negative); Protein,Urine 2+ (Negative); RBC,Urine 182 /hpf (0-5); Specific Gravity,Urine 1.015 (1.001-1.035); Urobilinogen,Urine <2.0 mg/dL (<2.0); WBC,Urine >182 /hpf (0-5)
[2021-06-11 23:11] LABS: INR 2.6 (<1.2); Partial Thromboplastin Time 32.6 sec (22.0-30.0); Prothrombin Time 25.8 sec (9.0-12.0)
[2021-06-11 23:15] LABS: Albumin 4.5 g/dL (3.5-5.0); Calcium 9.2 mg/dL (8.4-10.2); Magnesium 2.2 mg/dL (1.6-2.3); Potassium 5.3 mmol/L (3.5-5.1); Total Bilirubin 0.8 mg/dL (0.2-1.3); Total Protein 7.4 g/dL (6.3-8.2)
[2021-06-12] MEDS ORDERED: cefTRIAXone IN SWFI 1,000 MG/10 ML SYRINGE IVP STA (00:01)
[2021-06-12] MEDS ORDERED: NALOXONE 0.4 MG/ML 1 ML VIAL IV PRN (00:08)
[2021-06-12] MEDS ORDERED: ACETAMINOPHEN TAB 325 MG TAB PO PRN (00:08)
--- NOTE | 2021-06-12 02:06 | US ---
EXAMINATION TYPE: US renals and bladder DATE OF EXAM: 06/12/2021 COMPARISON: CLINICAL HISTORY: flank pain, possible pyelo. Pain. hx of cysts. EXAM MEASUREMENTS: Right Kidney: 12.4 x 5.1 x 5.9 cm Left Kidney: 9.5 x 4.8 x 4.9 cm Estimated Right Kidney: Lower pole cystic lesion in renal sinus= 2.0 x 2.0 x 1.9 cm Left Kidney: Limited due to bowel gas, inferior pole obscured by bowel gas. Multiple cystic lesion, largest mid cortical= 2.1 x 2.2 x 2.3 cm. Bladder: distended. Posterior echoes, debris vs lesion = 3.2 x 5.6 cm Bilateral Jets not seen IMPRESSION: There are bilateral renal cortical cysts. No hydronephrosis. There is fluid level in the urinary blad braxton that could relate to some debris and blood clot.
[2021-06-12] MEDS: TAMSULOSIN 0.4 MG CAP.ER.24H PO SCH ×2 (06:29→18:30)
[2021-06-12] MEDS: ASPIRIN 81 MG PO SCH (06:30)
[2021-06-12] MEDS: BACLOFEN 10 MG TAB PO SCH ×3 (06:30→22:02)
[2021-06-12] MEDS: METOPROLOL TARTRATE 25 MG TAB PO SCH ×2 (06:30→18:30)
[2021-06-12] MEDS: GABAPENTIN 300 MG CAP PO SCH ×3 (06:30→22:02)
[2021-06-12 06:49] LABS: INR 2.6 (<1.2); Prothrombin Time 25.5 sec (9.0-12.0)
--- NOTE | 2021-06-12 08:23 | P.HPIM ---
History of Present Illness This is a pleasant 81 years old male with past medical history of Atrial Fibrillation on warfarin, CVA/TIA, Hyperlipidemia, Hypertension, Osteoarthritis hypothyroidism, history of prostate cancer in 2015 status post radiotherapy, st atus post pacemaker. Also he has history of right leg weakness for 20 years secondary to MS/multiple sclerosis. On baclofen and Neurontin as he states. Last 3-4 weeks ago he saw Dr. calix his urologist who did a cystoscopy which was unremarkable as per patient Presents because of weakness and difficulty getting out of chair. However patient states that his weakness is generalized and nonspecific or worsening strokelike symptoms. Symmetrical on both sides. He denies any chest pain or dyspnea or coughing. No diarrhea or vomiting or abdominal pain. No dysuria or urgency or increased frequency, no change in appetite he was eating and drinking well the last few days. He denies smoking, alcohol or illicit drugs Vitals are stable, blood pressure was on the low side this morning 89/52 Labs show an unremarkable CBC, INR is therapeutic at 2.6 Creatinine is elevated to 1.5, baseline 1.1 Troponin is elevated 0.03, 0.07 and 0.07 Urine analysis is suspicious for infection Digoxin level is 0.8 while coronavirus not detected. Renal ultrasound, bilateral renal cortical cyst. No hydronephrosis. There is some fluid level in the urinary bladder that related to some debris and blood clots Review of Systems CONSTITUTIONAL: No fever, no malaise HEENT: No recent visual problems or hearing problems. Denied any sore throat. CARDIOVASCULAR: No orthopnea, PND, no palpitations, no syncope. PULMONARY: No shortness of breath, no cough, no hemoptysis. GASTROINTESTINAL: No diarrhea, no nausea, no vomiting, no abdominal pain. Normoactive bowel sounds. NEUROLOGICAL: No headaches, no weakness, no numbness. HEMATOLOGICAL: Denies any bleeding or petechiae. GENITOURINARY: Denies any burning micturition, frequency, or urgency. MUSCULOSKELETAL/RHEUMATOLOGICAL: Denies any joint pain, swelling, or any muscle pain. ENDOCRINE: Denies any polyuria or polydipsia. Past Medical History Past Medical History: Atrial Fibrillation, Cancer, CVA/TIA, Hyperlipidemia, Hypertension, Osteoarthritis (OA), Prostate Disorder, Thyroid Disorder Additional Past Medical History / Comment(s): MS, hx. prostate cancer 2015-had radiation. Generator change-01/14/2019 PACEMAKER ONLY, NO DEFIBRILLATOR Last Myocardial Infarction Date:: unk DATE History of Any Multi-Drug Resistant Organisms: None Reported Past Surgical History: Back Surgery, Heart Catheterization, Hernia Repair, Pacemaker Additional Past Surgical History / Comment(s): PACEMAKER, Generator change- 01/14/2019 Past Anesthesia/Blood Transfusion Reactions: No Reported Reaction Type of Cardiac Device: Permanent Pacemaker Device Placement Date:: 05/02/11 Past Psychological History: No Psychological Hx Reported Smoking Status: Former smoker Past Alcohol Use History: Occasional Past Drug Use History: None Reported - Past Family History Mother Family Medical History: No Reported History Sister(s) Family Medical History: Cancer Additional Family Medical History / Comment(s): melanoma Medications and Allergies Home Medications Medication Instructions Recorded Confirmed Type Aspirin 81 mg PO DAILY@0700 09/02/13 06/11/21 History Baclofen [Lioresal] 10 mg PO TID@0700,1500,2300 09/02/13 06/11/21 History Digoxin [Lanoxin] 125 mcg PO HS@0 09/02/13 06/11/21 History Isosorbide Mononitrate [Imdur] 60 mg PO HS@2300 09/02/13 06/11/21 History Ramipril [Altace] 10 mg PO DAILY@18309/02/13 06/11/21 History Simvastatin [Zocor] 40 mg PO HS@1830 09/02/13 06/11/21 History Warfarin [Coumadin] 2.5 mg PO DIRECTED 09/02/13 06/11/21 History Warfarin [Coumadin] 1.25 mg PO DIRECTED 03/06/18 06/11/21 History Tamsulosin [Flomax] 0.4 mg PO BID@0700,1830 09/03/19 06/11/21 History Gabapentin [Neurontin] 300 mg PO TID@0700,1500,2300 04/20/20 06/11/21 History Metoprolol Tartrate [Lopressor] 75 mg PO BID@0700,1830 04/20/20 06/11/21 History Allergies Allergy/AdvReac Type Severity Reaction Status Date / Time No Known Allergies Allergy Verified 06/11/21 23:24 Physical Exam Vitals: Vital Signs Temp Pulse Resp BP Pulse Ox 06/12/21 06:11 64 18 89/52 95 06/12/21 03:47 80 18 109/54 94 L 06/12/21 00:00 83 18 137/78 93 L 06/11/21 23:02 80 18 184/97 94 L 06/11/21 21:17 99.1 F 63 18 166/80 96 Intake and Output 06/11/21 06/12/21 06/12/21 22:59 06:59 14:59 Other: Weight 78.018 kg GENERAL: The patient is alert and oriented x3, not in any acute distress. Well developed, well nourished. HEENT: Pupils are round and equally reacting to light. EOMI. No scleral icterus. No conjunctival pallor. Normocephalic, atraumatic. No pharyngeal erythema. No thyromegaly. CARDIOVASCULAR: S1 and S2 present. No murmurs, rubs, or gallops. PULMONARY: Chest is clear to auscultation, no wheezing or crackles. ABDOMEN: Soft, nontender, nondistended, normoactive bowel sounds. No palpable organomegaly. MUSCULOSKELETAL: No joint swelling or deformity. EXTREMITIES: No cyanosis, clubbing, or pedal edema. NEUROLOGICAL: Gross neurological examination did not reveal any focal deficits. SKIN: No rashes. No petechiae Results CBC & Chem 7: 06/11/21 22:04 06/11/21 22:04 Labs: Abnormal Lab Results - Last 24 Hours (Table) 06/11/21 06/11/21 06/11/21 Range/Units 22:04 22:04 22:04 Neutrophils # 7.8 H (1.3-7.7) k/uL Lymphocytes # 0.5 L (1.0-4.8) k/uL PT 25.8 H (9.0-12.0) sec INR 2.6 H (<1.2) APTT 32.6 H (22.0-30.0) sec Potassium (3.5-5.1) mmol/L BUN (9-20) mg/dL Creatinine (0.66-1.25) mg/dL Glucose (74-99) mg/dL Troponin I (0.000-0.034) ng/mL Urine Protein 2+ H (Negative) Urine Blood Moderate H (Negative) Ur Leukocyte Esterase Large H (Negative) Urine RBC 182 H (0-5) /hpf Urine WBC >182 H (0-5) /hpf Urine WBC Clumps Moderate H (None) /hpf Urine Bacteria Many H (None) /hpf 06/11/21 06/11/21 06/12/21 Range/Units 22:04 22:04 02:42 Neutrophils # (1.3-7.7) k/uL Lymphocytes # (1.0-4.8) k/uL PT (9.0-12.0) sec INR (<1.2) APTT (22.0-30.0) sec Potassium 5.3 H (3.5-5.1) mmol/L BUN 34 H (9-20) mg/dL Creatinine 1.58 H (0.66-1.25) mg/dL Glucose 119 H (74-99) mg/dL Troponin I 0.038 H* 0.074 H* (0.000-0.034) ng/mL Urine Protein (Negative) Urine Blood (Negative) Ur Leukocyte Esterase (Negative) Urine RBC (0-5) /hpf Urine WBC (0-5) /hpf Urine WBC Clumps (None) /hpf Urine Bacteria (None) /hpf 06/12/21 06/12/21 Range/Units 06:23 06:23 Neutrophils # (1.3-7.7) k/uL Lymphocytes # (1.0-4.8) k/uL PT 25.5 H (9.0-12.0) sec INR 2.6 H (<1.2) APTT (22.0-30.0) sec Potassium (3.5-5.1) mmol/L BUN (9-20) mg/dL Creatinine (0.66-1.25) mg/dL Glucose (74-99) mg/dL Troponin I 0.074 H* (0.000-0.034) ng/mL Urine Protein (Negative) Urine Blood (Negative) Ur Leukocyte Esterase (Negative) Urine RBC (0-5) /hpf Urine WBC (0-5) /hpf Urine WBC Clumps (None) /hpf Urine Bacteria (None) /hpf Assessment and Plan Assessment: Acute urinary tract infection, could be related to her recent procedure of cystoscopy 3-4 weeks ago as per patient Acute kidney injury Elevated troponin Chronic atrial fibrillation on warfarin History of stroke Hyperlipidemia Hypertension History of osteoarthritis Hypothyroidism History of prostate cancer Permanent pacemaker Plan: this is a pleasant 81 years old male who presents with acute kidney injury, UTI and elevated troponin Cardiology consult Continue with IV fluid, and monitor creatinine Start the patient on ceftriaxone and follow-up urine culture Check bladder scan Labs and medication were reviewed.. Continue same treatment. Continue with symptomatic treatment. Resume home medication. Monitor lytes and vitals. DVT and GI prophylaxis. Further recommendations depends on the clinical course of the patient DVT prophylaxiOn warfarin GI Prophylaxis: Pepcid PT/OT: Pending Prognosis is guarded
[2021-06-12] MEDS: SODIUM CHLORIDE 0.9% 1,000 ML IV SCH ×2 (08:30→16:03)
[2021-06-12] MEDS: FAMOTIDINE 20 MG/2 ML VIAL IV SCH (08:31)
[2021-06-12] MEDS ORDERED: FAMOTIDINE 20 MG/2 ML VIAL IV SCH (09:00)
[2021-06-12] MEDS: ATORVASTATIN 20 MG TAB PO SCH (18:30)
[2021-06-12] MEDS: DIGOXIN 125 MCG TAB PO SCH (22:02)
[2021-06-12] MEDS: ISOSORBIDE MONONITRATE ER 60 MG TAB.ER.24H PO SCH (22:02)
[2021-06-13 08:29] LABS: Basophils % (A) 0 %; Eosinophils # (A) 0.2 k/uL (0-0.7); Eosinophils % (A) 3 %; HCT 42.5 % (39.0-53.0); HGB 13.6 gm/dL (13.0-17.5); Hypochromasia Slight; Lymphocytes # (A) 0.6 k/uL (1.0-4.8); Lymphocytes % (A) 8 %; MCH 29.5 pg (25.0-35.0); MCV 92.3 fL (80.0-100.0); Monocytes # (A) 0.9 k/uL (0-1.0); Monocytes % (A) 12 %; Neutrophils # (A) 5.7 k/uL (1.3-7.7); Neutrophils % (A) 75 %; Platelet Count 157 k/uL (150-450); WBC 7.6 k/uL (3.8-10.6)
[2021-06-13 08:35] LABS: INR 2.7 (<1.2); Prothrombin Time 26.8 sec (9.0-12.0)
[2021-06-13] MEDS: BACLOFEN 10 MG TAB PO SCH ×3 (08:36→22:04)
[2021-06-13] MEDS: GABAPENTIN 300 MG CAP PO SCH ×3 (08:36→22:04)
[2021-06-13] MEDS: ASPIRIN 81 MG PO SCH (08:36)
[2021-06-13] MEDS: FAMOTIDINE 20 MG/2 ML VIAL IV SCH (08:37)
[2021-06-13 08:51] LABS: Calcium 8.6 mg/dL (8.4-10.2); Potassium 4.4 mmol/L (3.5-5.1)
[2021-06-13] MEDS ORDERED: SODIUM CHLORIDE 0.9% 500 ML 500 ML IV ONE (10:44)
--- NOTE | 2021-06-13 10:48 | P.PN ---
Subjective This is a pleasant 81 years old male with past medical history of Atrial Fibrillation on warfarin, CVA/TIA, Hyperlipidemia, Hypertension, Osteoarthritis hypothyroidism, history of prostate cancer in 2015 status post radiotherapy, status post pacemaker. Also he has history of right leg weakness for 20 years secondary to MS/multiple sclerosis. On baclofen and Neurontin as he states. Last 3-4 weeks ago he saw Dr. calix his urologist who did a cystoscopy which was unremarkable as per patient Presents because of weakness and difficulty getting out of chair. However patient states that his weakness is generalized and nonspecific or worsening strokelike symptoms. Symmetrical on both sides. He denies any chest pain or dyspnea or coughing. No diarrhea or vomiting or abdominal pain. No dysuria or urgency or increased frequency, no change in appetite he was eating and drinking well the last few days. He denies smoking, alcohol or illicit drugs Vitals are stable, blood pressure was on the low side this morning 89/52 Labs show an unremarkable CBC, INR is therapeutic at 2.6 Creatinine is elevated to 1.5, baseline 1.1 Troponin is elevated 0.03, 0.07 and 0.07 Urine analysis is suspicious for infection Digoxin level is 0.8 while coronavirus not detected. Renal ultrasound, bilateral renal cortical cyst. No hydronephrosis. There is some fluid level in the urinary bladder that related to some debris and blood clots 06/13/2021 Patient generally doing well, his bed patient is at baseline, he still feels weakness but is improving, he has chronic right leg weakness. No overt respiratory symptoms or urinary symptoms. Consult Themselves at home and [place]enh[place] catheter was placed. He has evidence of UTI with culture growing enterococcus urine, patient is already on ceftriaxone which is susceptible to. Physical therapy evaluation is ordered as well Creatinine improved to 1.47, INR therapeutic 2.7, blood pressure is borderline. History on normal saline 75 mL/h, going to give him a bolus of 500 mL Lower his metoprolol 75 mg twice a day to 50 mg twice a day Objective - Vital Signs Vital signs: Vital Signs Temp 97.5 F L 06/13/21 08:00 Pulse 77 06/13/21 08:00 Resp 16 06/13/21 08:00 BP 99/56 06/13/21 08:00 Pulse Ox 95 06/13/21 08:00 Intake & Output 06/12/21 06/13/21 06/13/21 18:59 06:59 18:59 Intake Total 450 Output Total 1999 825 Balance -1999 450 Weight 78.018 kg Intake: Oral 450 Output: Urine 19995 Other: Voiding Method Indwelling Catheter - Exam -GENERAL: The patient is alert and oriented x3, not in any acute distress. Well developed, well nourished. Generally weak HEENT: Pupils are round and equally reacting to light. EOMI. No scleral icterus. No conjunctival pallor. Normocephalic, atraumatic. No pharyngeal erythema. No thyromegaly. CARDIOVASCULAR: S1 and S2 present. No murmurs, rubs, or gallops. PULMONARY: Chest is clear to auscultation, no wheezing or crackles. ABDOMEN: Soft, nontender, nondistended, normoactive bowel sounds. No palpable organomegaly. MUSCULOSKELETAL: No joint swelling or deformity. EXTREMITIES: No cyanosis, clubbing, or pedal edema. -NEUROLOGICAL: Gross neurological examination did not reveal any focal deficits. Chronic right leg weakness SKIN: No rashes. no petechiae. - Labs CBC & Chem 7: 06/13/21 07:22 06/13/21 07:22 Labs: Abnormal Lab Results - Last 24 Hours (Table) 06/13/21 06/13/21 06/13/21 Range/Units 07:22 07:22 07:22 Lymphocytes # 0.6 L (1.0-4.8) k/uL PT 26.8 H (9.0-12.0) sec INR 2.7 H (<1.2) BUN 24 H (9-20) mg/dL Creatinine 1.47 H (0.66-1.25) mg/dL Glucose 113 H (74-99) mg/dL Microbiology - Last 24 Hours (Table) 06/11/21 22:04 Urine Culture - Final Urine,Voided Aerococcus urinae Assessment and Plan Assessment: Acute urinary tract infection, could be related to her recent procedure of cystoscopy 3-4 weeks ago as per patient. Patient self catheterize. Urine culture is growing aerococcus urinary Acute kidney injury Elevated troponin Chronic atrial fibrillation on warfarin History of stroke Hyperlipidemia Hypertension History of osteoarthritis Hypothyroidism History of prostate cancer Permanent pacemaker Plan: this is a pleasant 81 years old male who presents with acute kidney injury, UTI and elevated troponin Cardiology consult, echocardiogram is pending Continue with IV fluid, and monitor creatinine Continue with ceftriaxone Labs and medication were reviewed.. Continue same treatment. Continue with symptomatic treatment. Resume home medication. Monitor lytes and vitals. DVT and GI prophylaxis. Further recommendations depends on the clinical course of the patient DVT prophylaxiOn warfarin GI Prophylaxis: Pepcid PT/OT: Pending Prognosis is guarded
--- NOTE | 2021-06-13 11:48 | P.CRDCN ---
History of Present Illness Consult date: 06/13/21 History of present illness: HISTORY OF PRESENT ILLNESS: This is a 81-year-old male with a past medical history significant for coronary artery disease with known RCA occlusion, hypertension, hyperlipidemia, permanent pacemaker, and chronic atrial fibrillation/flutter. Patient follows in the office with Dr. Nation. We have been asked to see the patient in consultation for abnormal troponins. Patient examined at the bedside. Patient presented to the hospital with a chief complaint of generalized weakness. Patient was found to have a urinary tract infection. Patient does report he had a recent cystoscopy with urology. Patient denies any chest pain or pressure. He denies any shortness of breath. Denies dizziness or lightheadedness. Vital signs are stable. * EKG reveals paced rhythm with underlying atrial fibrillation * Laboratory data: WBC 7.6. Hemoglobin 13.6. Platelet count 157. INR 2.7. Sodium 140. Potassium 4.4. BUN 24. Creatinine 1.47. Troponin 0.038. 0.074. 0.074. * Current home cardiac medications include warfarin 2.5 mg Sunday and 2.5 mg Sunday and Sunday, aspirin 81 mg daily, simvastatin 40 mg at night, metoprolol tartrate 75 mg twice a day, Imdur 60 mg at night, digoxin 125mcg at night, and ramipril 10 mg daily * Most recent echocardiogram obtained in March 2020 revealed ejection fraction 35-40%, basal inferior LV wall hypokinesis, basal septal hypokinesis, mild aortic stenosis, mild mitral regurgitation, mild tricuspid regurgitation, and mild pulmonary hypertension * Patient underwent Lexiscan stress test in August 2019 which was negative for stress-induced ischemia * Cardiac catheterization history: August 2013 revealing right dominant system, recannulized RCA with 70-80% lesion and sluggish flow, left system free of significant disease, filling pressures acceptable. REVIEW OF SYSTEMS: At the time of my exam: CONSTITUTIONAL: Denies fever or chills. HEENT: Denies blurred vision, vision changes, or eye pain. Denies hemoptysis CARDIOVASCULAR: Denies chest pain. Denies orthopnea. Denies PND. Denies palpitations RESPIRATORY: Denies shortness of breath. GASTROINTESTINAL: Denies abdominal pain. Denies nausea or vomiting. HEMATOLOGIC: Denies bleeding disorders. GENITOURINARY: Denies any blood in urine. SKIN: Denies pruitis. Denies rash. PHYSICAL EXAM: VITAL SIGNS: Reviewed. GENERAL: Well-developed in no acute distress. HEENT: Head is normocephalic. Pupils are equal, round. Sclerae anicteric. Mucous membranes of the mouth are moist. Neck supple. No JVD or thyromegaly LUNGS: Respirations even and unlabored. Lungs essentially clear to auscultation bilaterally. HEART: Regular rate and rhythm. S1 and S2 heard. Soft systolic murmur noted. ABDOMEN: Soft. Nondistended. Nontender. EXTREMITIES: Normal range of motion. No clubbing or cyanosis. Peripheral pulses intact. No lower extremity edema NEUROLOGIC: Awake and alert. Oriented x 3. ASSESSMENT: Urinary tract infection Abnormal troponins, secondary to above, no evidence of ACS Permanent atrial fibrillation, on Warfarin Coronary artery disease with known RCA occlusion History of permanent pacemaker insertion Ischemic cardiomyopathy, EF 35-40% Hypertension Hyperlipidemia Multiple sclerosis PLAN: An acute coronary event has been ruled out Obtain 2D echo to assess cardiac structure and function Resume home cardiac medications Further recommendations pending patient course Nurse practitioner note has been reviewed by physician. Signing provider agrees with the documented findings, assessment, and plan of care. Past Medical History Past Medical History: Atrial Fibrillation, Cancer, CVA/TIA, Hyperlipidemia, Hypertension, Osteoarthritis (OA), Prostate Disorder, Thyroid Disorder Additional Past Medical History / Comment(s): MS, hx. prostate cancer 2014-had radiation. Generator change-01/14/2019 PACEMAKER ONLY, NO DEFIBRILLATOR Last Myocardial Infarction Date:: unk DATE History of Any Multi-Drug Resistant Organisms: None Reported Past Surgical History: Back Surgery, Heart Catheterization, Hernia Repair, Pacemaker Additional Past Surgical History / Comment(s): PACEMAKER, Generator change- Past Anesthesia/Blood Transfusion Reactions: No Reported Reaction Type of Cardiac Device: Permanent Pacemaker Device Placement Date:: 05/02/11 Past Psychological History: No Psychological Hx Reported Smoking Status: Never smoker Past Alcohol Use History: Occasional Additional Past Alcohol Use History / Comment(s): STARTED SMOKING AT AGE 20 quit smoking 1992, smoked 1ppd Past Drug Use History: None Reported - Past Family History Mother Family Medical History: No Reported History Sister(s) Family Medical History: Cancer Additional Family Medical History / Comment(s): melanoma Medications and Allergies Home Medications Medication Instructions Recorded Confirmed Type Aspirin 81 mg PO DAILY@0700 09/02/13 06/11/21 History Baclofen [Lioresal] 10 mg PO TID@0700,1500,2300 09/02/13 06/11/21 History Digoxin [Lanoxin] 125 mcg PO HS@2300 09/02/13 06/11/21 History Isosorbide Mononitrate [Imdur] 60 mg PO HS@2300 09/02/13 06/11/21 History Ramipril [Altace] 10 mg PO DAILY@1830 09/02/13 06/11/21 History Simvastatin [Zocor] 40 mg PO HS@1830 09/02/13 06/11/21 History Warfarin [Coumadin] 2.5 mg PO WESA 09/02/13 06/12/21 History Warfarin [Coumadin] 1.25 mg PO SUMOTUTHFR 03/06/18 06/12/21 History Tamsulosin [Flomax] 0.4 mg PO BID@0700,1830 09/03/19 06/11/21 History Gabapentin [Neurontin] 300 mg PO TID@0700,1500,2300 04/20/20 06/11/21 History Metoprolol Tartrate [Lopressor] 75 mg PO BID@0700,1830 04/20/20 06/11/21 History Allergies Allergy/AdvReac Type Severity Reaction Status Date / Time No Known Allergies Allergy Verified 06/11/21 23:24 Physical Exam Vitals: Vital Signs Temp Pulse Pulse Resp BP BP Pulse Ox 06/13/21 08:00 97.5 F L 77 16 99/56 95 06/13/21 04:00 97.5 F L 67 16 130/64 94 L 06/13/21 00:00 60 18 121/65 97 06/12/21 19:09 98.5 F 80 16 120/68 98 06/12/21 16:00 98.0 F 66 16 147/74 96 06/12/21 13:19 97.7 F 72 18 116/82 96 Intake and Output 06/12/21 06/13/21 06/13/21 22:59 06:59 14:59 Intake Total 450 Output Total 500 825 Balance -500 -825 450 Intake: Oral 450 Output: Urine 500 825 Other: Voiding Method Indwelling Catheter Indwelling Catheter Indwelling Catheter Weight 78.018 kg Results 06/13/21 07:22 06/13/21 07:22 Coagulation 06/13/21 Range/Units 07:22 PT 26.8 H (9.0-12.0) sec CBC 06/13/21 Range/Units 07:22 WBC 7.6 (3.8-10.6) k/uL RBC 4.60 (4.30-5.90) m/uL Hgb 13.6 (13.0-17.5) gm/dL Hct 42.5 (39.0-53.0) % Plt Count 157 (150-450) k/uL Comprehensive Metabolic Panel 06/13/21 Range/Units 07:22 Sodium 140 (137-145) mmol/L Potassium 4.4 (3.5-5.1) mmol/L Chloride 107 (98-107) mmol/L Carbon Dioxide 28 (22-30) mmol/L BUN 24 H (9-20) mg/dL Creatinine 1.47 H (0.66-1.25) mg/dL Glucose 113 H (74-99) mg/dL Calcium 8.6 (8.4-10.2) mg/dL Current Medications Generic Name Dose Route Start Last Admin Trade Name Freq PRN Reason Stop Dose Admin Acetaminophen 650 mg 06/12/21 00:08 Acetaminophen Tab 325 Mg Tab PO Q6HR PRN Mild Pain or Fever > 100.5 Aspirin 81 mg 06/12/21 07:00 06/13/21 08:36 Aspirin 81 Mg PO 81 mg DAILY@0700 [facility] Administration Atorvastatin Calcium 20 mg 06/12/21 18:30 06/12/21 18:30 Atorvastatin 20 Mg Tab PO 20 mg HS@1830 [facility] Administration Baclofen 10 mg 06/12/21 07:00 06/13/21 08:36 Baclofen 10 Mg Tab PO 10 mg TID@0700,1500,2300 [facility] Administration Digoxin 125 mcg 06/12/21 23:00 06/12/21 22:02 Digoxin 125 Mcg Tab PO 125 mcg HS@2300 [facility] Administration Famotidine 20 mg 06/14/21 09:00 Famotidine 20 Mg Tab PO Q24HR [facility] Gabapentin 300 mg 06/12/21 07:00 06/13/21 08:36 Gabapentin 300 Mg Cap PO 300 mg TID@0700,1500,2300 [facility] Administration Ceftriaxone Sodium 1 gm/ 50 mls @ 100 mls/hr 06/12/21 09:00 06/13/21 08:36 Sodium Chloride IVPB 100 mls/hr Q24HR [facility] Administration Sodium Chloride 1,000 mls @ 75 mls/hr 06/12/21 08:00 06/12/21 16:03 Saline 0.9% IV 75 mls/hr .[id number] [facility] Administration Isosorbide Mononitrate 60 mg 06/12/21 23:00 06/12/21 22:02 Isosorbide Mononitrate Er 60 Mg Tab.Er.24h PO 60 mg HS@2300 [facility] Administration Metoprolol Tartrate 50 mg 06/13/21 18:30 Metoprolol Tartrate 50 Mg Tab PO BID@0700,1830 [facility] Miscellaneous Information 0 each 06/13/21 07:05 Warfarin Per Pharmacy MISCELLANE DIRECTED PRN PHARMACY DOSING WARFARIN Naloxone HCl 0.2 mg 06/12/21 00:08 Naloxone 0.4 Mg/Ml 1 Ml Vial IV Q2M PRN Opioid Reversal Tamsulosin HCl 0.4 mg 06/12/21 07:00 06/12/21 18:30 Tamsulosin 0.4 Mg Cap.Er.24h PO 0.4 mg BID@07,183 [facility] Administration Warfarin Sodium 2.5 mg 06/15/21 18:00 Warfarin 2.5 Mg Tab PO WeSa@1800 [facility] Protocol Warfarin Sodium 1.25 mg 06/13/21 18:00 Warfarin 1.25 Mg Tab PO SuMoTuThFr@1800 [facility] Protocol Intake and Output 06/12/21 06/13/21 06/13/21 22:59 06:59 14:59 Intake Total 450 Output Total 500 825 Balance -500 -825 450 Intake: Oral 450 Output: Urine 500 825 Other: Voiding Method Indwelling Catheter Indwelling Catheter Indwelling Catheter Weight 78.018 kg 06/13/21 07:22 06/13/21 07:22
[2021-06-13] MEDS: SODIUM CHLORIDE 0.9% 1,000 ML IV SCH ×2 (12:21→23:06)
--- NOTE | 2021-06-13 12:38 | ECHOF ---
Referral Reason:Lv function, abnormal troponins MEASUREMENTS -------- HEIGHT: 182.9 cm WEIGHT: 78.0 kg BP: 99/56 RVIDd: 3.6 cm (< 3.3) IVSd: 1.5 cm (0.6 - 1.1) LVIDd: 4.3 cm (3.9 - 5.3) LVPWd: 1.5 cm (0.6 - 1.1) IVSs: 2.2 cm LVIDs: 3.2 cm LVPWs: 1.7 cm LA Diam: 4.8 cm (2.7 - 3.8) LAESV Index (A-L): 47.56 ml/m Ao Diam: 3.9 cm (2.0 - 3.7) AV Cusp: 1.8 cm (1.5 - 2.6) MV EXCURSION: 17.007 mm (> 18.000) MV EF SLOPE: 77 mm/s (70 - 150) EPSS: 0.7 cm AV maxP.63 mmHg AV meanP.77 mmHg RAP: 5.00 mmHg RVSP: 32.66 mmHg FINDINGS -------- Pacerwire seen in RV and RA. This was a technically adequate study. The left ventricular size is normal. There is moderate concentric left ventricular hypertrophy. O verall left ventricular systolic function is mildly impaired with, an EF between 45 - 50 %. Basal i nferior LV wall motion is akinetic. Basal inferoseptal LV wall motion is akinetic. The right ventricle is normal in size. LA is severely dilated >40 ml/m2 The right atrial size is normal. Interatrial and interventricular septum intact. There is mild aortic valve sclerosis. There is mild aortic stenosis present. Peak/mean gradient a cross the Aortic Valve is 22.63mmHg / 12.77mmHg. Moderate mitral annular calcification present. Mild mitral regurgitation is present. The tricuspid valve appears structurally normal. Mild tricuspid regurgitation present. Right vent ricular systolic pressure is normal at < 35 mmHg. Moderate pulmonic regurgitation. The aortic root is mildy dilated. The inferior vena cava is mildly dilated. There is no pericardial effusion. CONCLUSIONS -------- 1. Pacerwire seen in RV and RA. 2. There is moderate concentric left ventricular hypertrophy. 3. Overall left ventricular systolic function is mildly impaired with, an EF between 45 - 50 %. 4. Basal inferior LV wall motion is akinetic. 5. Basal inferoseptal LV wall motion is akinetic. 6. LA is severely dilated >40 ml/m2 7. There is mild aortic valve sclerosis. 8. There is mild aortic stenosis present. 9. Peak/mean gradient across the Aortic Valve is 22.63mmHg / 12.77mmHg. 10. Moderate mitral annular calcification present. 11. Mild mitral regurgitation is present. 12. Mild tricuspid regurgitation present. 13. Moderate pulmonic regurgitation. 14. The aortic root is mildy dilated. 15. The inferior vena cava is mildly dilated. 16. There is no pericardial effusion. DIRECTOR [employer]Y: Malgorzata Dwyer RDCS
[2021-06-13] MEDS: TAMSULOSIN 0.4 MG CAP.ER.24H PO SCH ×2 (16:29→16:37)
[2021-06-13] MEDS: METOPROLOL TARTRATE 25 MG TAB PO SCH (16:30)
[2021-06-13] MEDS: METOPROLOL TARTRATE 50 MG TAB PO SCH (16:36)
[2021-06-13] MEDS: ATORVASTATIN 20 MG TAB PO SCH (16:40)
[2021-06-13] MEDS ORDERED: WARFARIN 1.25 MG TAB PO SCH (18:00)
[2021-06-13] MEDS: DIGOXIN 125 MCG TAB PO SCH (22:04)
[2021-06-13] MEDS: ISOSORBIDE MONONITRATE ER 60 MG TAB.ER.24H PO SCH (22:04)
[2021-06-14 03:58] VITALS: TEMP 97.5
[2021-06-14] MEDS: METOPROLOL TARTRATE 50 MG TAB PO SCH (07:00)
[2021-06-14] MEDS: TAMSULOSIN 0.4 MG CAP.ER.24H PO SCH (07:00)
[2021-06-14] MEDS: GABAPENTIN 300 MG CAP PO SCH (07:00)
[2021-06-14] MEDS: ASPIRIN 81 MG PO SCH (07:00)
[2021-06-14] MEDS: BACLOFEN 10 MG TAB PO SCH (07:00)
[2021-06-14 08:10] LABS: Basophils % (A) 1 %; Eosinophils # (A) 0.2 k/uL (0-0.7); Eosinophils % (A) 3 %; HCT 43.9 % (39.0-53.0); HGB 13.8 gm/dL (13.0-17.5); Hypochromasia Slight; Lymphocytes # (A) 0.8 k/uL (1.0-4.8); Lymphocytes % (A) 11 %; MCH 29.1 pg (25.0-35.0); MCHC 31.4 g/dL (31.0-37.0); MCV 92.7 fL (80.0-100.0); Monocytes # (A) 0.9 k/uL (0-1.0); Monocytes % (A) 11 %; Neutrophils # (A) 5.6 k/uL (1.3-7.7); Neutrophils % (A) 73 %; Platelet Count 179 k/uL (150-450); RBC 4.73 m/uL (4.30-5.90); RDW 13.1 % (11.5-15.5); WBC 7.8 k/uL (3.8-10.6)
[2021-06-14 08:16] LABS: Calcium 8.8 mg/dL (8.4-10.2); Potassium 4.4 mmol/L (3.5-5.1)
[2021-06-14 08:21] VITALS: RESP 16
[2021-06-14 08:32] LABS: INR 2.6 (<1.2); Prothrombin Time 25.8 sec (9.0-12.0)
[2021-06-14] MEDS ORDERED: FAMOTIDINE 20 MG TAB PO SCH (09:00)
--- NOTE | 2021-06-14 12:24 | P.DS ---
<Katie, - Last Filed: 06/14/21 11:54> Providers Expected date of discharge: 06/14/21 Consults: cardiology Hospital Course: Patient is a pleasant 81-year-old male that presents to the emergency room with weakness and unsteady gait. Patient has a pertinent medical history of A. fib on Coumadin, CVA, hypertension, hyperlipidemia, multiple sclerosis, and hypothyroidism. Patient was found to have elevated troponin at 0.038 increased to 0.074. Cardiology was consulted and ruled out acute coronary syndrome. After reviewing echocardiogram, cardiology cleared patient for discharge home with same home medications. A urine culture was performed as patient has history of frequent UTIs with self catheterization.Culture found aerococcus urinae. Patient has been covered with Rocephin, will be discharged home on Ceftin. Patient's BUN and creatinine were elevated on admission at 34 and 1.58. Kidney function has improved. Today BUN is 18 and creatinine is 1.3, we will follow in the office. Patient was seen and examined at bedside, reports feeling much better and ready to go home. States his strength has returned and was able to walk in the hallway with a walker. Patient denies chest pain, shortness of breath, abdominal pain, flank pain, fever, chills, headache. Patient is stable for discharge. Assessment: Acute urinary tract infection secondary to self catheterization Acute kidney injury, BUN and creatinine returning to normal Elevated troponin, cardiac causes ruled out Chronic A. fib with controlled ventricular rate, on Coumadin Hyperlipidemia Hypertension Hypothyroidism History of prostate cancer history of osteoarthritis Health Concerns: Multiple comorbidities Pertinent Studies: Renal ultrasound, found bilateral renal cortical cysts with no hydronephrosis Echocardiogram found moderate concentric left ventricular hypertrophy with a EF between 45-50% Urine culture positive for aerococcus urinae Patient Condition at Discharge: Stable Plan - Discharge Summary Discharge Rx Participant: No New Discharge Prescriptions: New Cefuroxime Axetil [Ceftin] 500 mg PO BID 7 Days #14 tab Continue Ramipril [Altace] 10 mg PO DAILY@1830 Isosorbide Mononitrate [Imdur] 60 mg PO HS@2300 Baclofen [Lioresal] 10 mg PO TID@0700,1500,2300 Warfarin [Coumadin] 2.5 mg PO WESA Aspirin 81 mg PO DAILY@0700 Digoxin [Lanoxin] 125 mcg PO HS@2300 Simvastatin [Zocor] 40 mg PO HS@1830 Warfarin [Coumadin] 1.25 mg PO SUMOTUTHFR Tamsulosin [Flomax] 0.4 mg PO BID@0700,1830 Metoprolol Tartrate [Lopressor] 75 mg PO BID@0700,1830 Gabapentin [Neurontin] 300 mg PO TID@0700,1500,2300 Discharge Medication List Aspirin 81 mg PO DAILY@0700 09/02/13 [History] Baclofen [Lioresal] 10 mg PO TID@0700,1500,2300 09/02/13 [History] Digoxin [Lanoxin] 125 mcg PO HS@23009/02/13 [History] Isosorbide Mononitrate [Imdur] 60 mg PO HS@23009/02/13 [History] Ramipril [Altace] 10 mg PO DAILY@182909/02/13 [History] Simvastatin [Zocor] 40 mg PO HS@18309/02/13 [History] Warfarin [Coumadin] 2.5 mg PO WESA 09/02/13 [History] Warfarin [Coumadin] 1.25 mg PO SUMOTUTHFR 03/06/18 [History] Tamsulosin [Flomax] 0.4 mg PO BID@0700,1830 09/03/19 [History] Gabapentin [Neurontin] 300 mg PO TID@0700,1500,2300 04/20/20 [History] Metoprolol Tartrate [Lopressor] 75 mg PO BID@0700,1830 04/20/20 [History] Cefuroxime Axetil [Ceftin] 500 mg PO BID 7 Days #14 tab 06/14/21 [Rx] Follow up Appointment(s)/Referral(s): Jeison Reyes MD [Primary Care Provider] - 06/17/21 4:00 pm Jonas Padilla MD [STAFF PHYSICIAN] - 06/28/21 1:00 pm [facility], [NON-STAFF] - Discharge Disposition: HOME SELF-CARE <Jeison Reyes - Last Filed: 06/16/21 19:32> Providers Date of admission: 06/13/21 10:58 Attending physician: Jeison Reyes Primary care physician: Jeison Reyes I have personally seen and examined the patient, reviewed the documentation and agree with the assessment and plan as written. Number of minutes spent on the visit: greater than 15.
[2021-06-14 12:38] VITALS: BP 154/67; PULSE 84
[2021-06-15] MEDS ORDERED: WARFARIN 2.5 MG TAB PO SCH (18:00)
== END 2021-06-14 14:26 | disposition home or self-care (01) | DRG 699 ==
LOC: EC 21:13 → 3SCARD 06-12 00:08 → OBSVTOIN 06-13 10:58
PROVIDERS: ADMIT Family Medicine; ATTEND Family Medicine
DX: T83.518A Infection and inflammatory reaction due to other urinary catheter, initial encounter (principal); N17.9 Acute kidney failure, unspecified; I48.20 Chronic atrial fibrillation, unspecified; N39.0 Urinary tract infection, site not specified; I48.92 Unspecified atrial flutter; R79.89 Other specified abnormal findings of blood chemistry; Z20.822 Contact with and (suspected) exposure to COVID-19; B95.2 Enterococcus as the cause of diseases classified elsewhere; E03.9 Hypothyroidism, unspecified; Z95.0 Presence of cardiac pacemaker; I08.3 Combined rheumatic disorders of mitral, aortic and tricuspid valves; E78.5 Hyperlipidemia, unspecified; R53.1 Weakness; I35.0 Nonrheumatic aortic (valve) stenosis; I27.20 Pulmonary hypertension, unspecified; G35 Multiple sclerosis; I10 Essential (primary) hypertension; I25.10 Atherosclerotic heart disease of native coronary artery without angina pectoris; I25.2 Old myocardial infarction; I25.5 Ischemic cardiomyopathy; N28.1 Cyst of kidney, acquired; N32.89 Other specified disorders of bladder; Z79.01 Long term (current) use of anticoagulants; Z79.82 Long term (current) use of aspirin; Z79.899 Other long term (current) drug therapy; Z80.8 Family history of malignant neoplasm of other organs or systems; Z85.46 Personal history of malignant neoplasm of prostate; Z86.73 Personal history of transient ischemic attack (TIA), and cerebral infarction without residual deficits; Z87.440 Personal history of urinary (tract) infections; Z87.891 Personal history of nicotine dependence
CPT/HCPCS: 36415; 76770; 80048; 80053; 80162; 81001; 83605; 83735; 84484; 85025; 85610; 85730; 87086; 87635; 93005; 93306; 96360; 99285

== ENCOUNTER 2021-09-29 18:47 | Inpatient (IN) | payer MEDICARE ==
[2021-09-29] MEDS ORDERED: ACETAMINOPHEN TAB 500 MG TAB PO STA (20:54)
[2021-09-29] MEDS ORDERED: SODIUM CHLORIDE 0.9% 1,000 ML IV STA ×2 (20:54→23:51)
--- NOTE | 2021-09-29 21:03 | ED ---
Weakness HPI - General Source: patient, family, RN notes reviewed Mode of arrival: wheelchair Limitations: no limitations - History of Present Illness MD Complaint: generalized weakness Onset/Timin -: days(s) <Elena Henriquez - Last Filed: 09/30/21 00:56> <Gildardo Segal - Last Filed: 09/30/21 01:02> - General Chief complaint: Fever Stated complaint: Weakness Time Seen by Provider: 09/29/21 20:51 - History of Present Illness Initial comments: This is a 81-year-old male presents emergency department for a fever and weakness. Patient states the symptoms have been present for almost a week at this point and he feels like he may have a UTI. When he's had UTIs in the past, he develops weakness. He had a 3 day hospital admission in May of this year for weakness and was diagnosed with UTI at that time as well. Patient does see Dr. Padilla, urology, as he has a known history of urinary retention and self catheterizes twice a day. Denies any dysuria or hematuria. His states that he is barely able to stand due to how week he feels. He does have a known history of multiple sclerosis which has also been causing progressive weakness, particularly in the lower extremities, over the last few years. He is noted to have a fever of 101.6F in triage. Patient states that he has not taken anything for his fever today. He has not been checking his temperature at home, but notes that he has had chills over the last couple of days. Denies any chest pain or shortness of breath. Denies any sore throat, cough, dyspnea, chest pain, palpitations, abdominal pain, nausea, vomiting, diarrhea, back pain, or headaches. (Elena Henriquez) - Related Data Home Medications Medication Instructions Recorded Confirmed Aspirin 81 mg PO DAILY@0700 09/02/13 09/29/21 Baclofen [Lioresal] 10 mg PO TID@0700,1500,2300 09/02/13 09/29/21 Digoxin [Lanoxin] 125 mcg PO HS@2300 09/02/13 09/29/21 Isosorbide Mononitrate [Imdur] 60 mg PO HS@2300 09/02/13 09/29/21 Ramipril [Altace] 10 mg PO DAILY@182909/02/13 09/29/21 Simvastatin [Zocor] 40 mg PO HS@182909/02/13 09/29/21 Warfarin [Coumadin] 2.5 mg PO SA@182909/02/13 09/29/21 Warfarin [Coumadin] 1.25 mg PO SUMOTUWETHFR@1830 03/06/18 09/29/21 Tamsulosin [Flomax] 0.4 mg PO BID@0700,1830 09/03/19 09/29/21 Gabapentin [Neurontin] 300 mg PO TID@0700,1500,2300 04/20/20 09/29/21 Metoprolol Tartrate [Lopressor] 75 mg PO BID@0700,1830 04/20/20 09/29/21 Allergies Allergy/AdvReac Type Severity Reaction Status Date / Time No Known Allergies Allergy Verified 09/29/21 22:09 Review of Systems ROS Other: All systems not noted in ROS Statement are negative. <Elena Henriquez - Last Filed: 09/30/21 00:56> ROS Other: All systems not noted in ROS Statement are negative. <Gildardo Segal - Last Filed: 09/30/21 01:02> ROS Statement: Those systems with pertinent positive or pertinent negative responses have been documented in the HPI. Past Medical History Past Medical History: Atrial Fibrillation, Cancer, CVA/TIA, Hyperlipidemia, Hypertension, Osteoarthritis (OA), Prostate Disorder, Thyroid Disorder Additional Past Medical History / Comment(s): MS, hx. prostate cancer 2014-had radiation. Generator change-01/14/2019 PACEMAKER ONLY, NO DEFIBRILLATOR Last Myocardial Infarction Date:: unk DATE History of Any Multi-Drug Resistant Organisms: None Reported Past Surgical History: Back Surgery, Heart Catheterization, Hernia Repair, Pacemaker Additional Past Surgical History / Comment(s): PACEMAKER, Generator change- 01/14/2019 Past Anesthesia/Blood Transfusion Reactions: No Reported Reaction Type of Cardiac Device: Permanent Pacemaker Device Placement Date:: 05/02/11 Past Psychological History: No Psychological Hx Reported Smoking Status: Former smoker Past Alcohol Use History: Occasional Past Drug Use History: None Reported - Past Family History Mother Family Medical History: No Reported History Sister(s) Family Medical History: Cancer Additional Family Medical History / Comment(s): melanoma <Elena Henriquez - Last Filed: 09/30/21 00:56> General Exam Limitations: no limitations General appearance: alert, in no apparent distress Head exam: Present: atraumatic, normocephalic, normal inspection Respiratory exam: Present: wheezes (Left upper lung field) Cardiovascular Exam: Present: regular rate, normal rhythm, normal heart sounds. Absent: systolic murmur, diastolic murmur, rubs, gallop, clicks Neurological exam: Present: alert, oriented X3, CN II-XII intact Psychiatric exam: Present: normal affect, normal mood Skin exam: Present: warm, dry, intact, normal color. Absent: rash <Elena Henriquez - Last Filed: 09/30/21 00:56> General appearance: alert, in no apparent distress Head exam: Present: atraumatic, normocephalic, normal inspection Eye exam: Present: normal appearance, PERRL, EOMI. Absent: scleral icterus, conjunctival injection, periorbital swelling ENT exam: Present: normal exam, mucous membranes moist Neck exam: Present: normal inspection. Absent: tenderness, meningismus, lymphadenopathy Respiratory exam: Present: normal lung sounds bilaterally. Absent: respiratory distress, wheezes, rales, rhonchi, stridor Cardiovascular Exam: Present: regular rate, normal rhythm, normal heart sounds. Absent: systolic murmur, diastolic murmur, rubs, gallop, clicks GI/Abdominal exam: Present: soft, normal bowel sounds. Absent: distended, tenderness, guarding, rebound, rigid Extremities exam: Present: normal inspection, full ROM, normal capillary refill. Absent: tenderness, pedal edema, joint swelling, calf tenderness Back exam: Present: normal inspection Neurological exam: Present: alert, oriented X3, CN II-XII intact Psychiatric exam: Present: normal affect, normal mood Skin exam: Present: warm, dry, intact, normal color. Absent: rash <Gildardo Segal - Last Filed: 09/30/21 01:02> Course Vital Signs 09/29/21 09/29/21 09/29/21 19:05 21:51 23:59 Temperature 101.6 F H 98.7 F Pulse Rate 64 74 61 Respiratory 16 18 18 Rate Blood Pressure 150/74 146/78 119/60 O2 Sat by Pulse 97 94 L 94 L Oximetry EKG Findings - EKG Comments: EKG Findings:: Electronic ventricular pacemaker. Uncertain the regular rhythm. Ventricular rate 68 bpm, no UT interval. QRS duration 128 ms, QTC 419 ms. <Elena Henriquez - Last Filed: 09/30/21 00:56> Medical Decision Making - Lab Data Result diagrams: 09/29/21 21:37 09/29/21 21:37 - Radiology Data Radiology results: report reviewed, image reviewed <Elena Henriquez - Last Filed: 09/30/21 00:56> - Lab Data Result diagrams: 09/29/21 21:37 09/29/21 21:37 <Gildardo Segal - Last Filed: 09/30/21 01:02> - Medical Decision Making This is a 81-year-old male who presents to the emergency department for weakness. Patient did have some left upper lobe wheezing and a chest x-ray was obtained. This revealed no acute changes. Lab work reveals an elevated white blood cell count of 12.5, an elevated creatinine, and an elevated troponin. Of note, patient had an elevated troponin when he was here in May 2021. Acute coronary syndrome was ruled out at that time. He is febrile at 101.6F. He was given 1 g of Tylenol. BNP is elevated, however this has not been checked in approximately 9 months, and has been higher in the past. Patient was given 2 L bolus of normal saline. Urinalysis appears very similar to the one in May 2021, at which time the culture returned positive for Aerococcus urinae. Patient was treated with Rocephin at that time. Will start the patient on 1g of Rocephin in the emergency department. Case will be signed out to attending ED physician Dr. Segal. (Elena Henriquez) [place] male this point will be admitted for significant urinary tract infection, patient will also have trending of troponin he did have fever here in the ER this is a febrile urinary tract infection with weakness dehydration elevated troponin rule out acute coronary syndrome (Gildardo Segal) - Lab Data Lab Results 09/29/21 09/29/21 09/29/21 Range/Units 19:13 19:13 21:37 WBC (3.8-10.6) k/uL RBC (4.30-5.90) m/uL Hgb (13.0-17.5) gm/dL Hct (39.0-53.0) % MCV (80.0-100.0) fL MCH (25.0-35.0) pg MCHC (31.0-37.0) g/dL RDW (11.5-15.5) % Plt Count (150-450) k/uL MPV Neutrophils % % Lymphocytes % % Monocytes % % Eosinophils % % Basophils % % Neutrophils # (1.3-7.7) k/uL Lymphocytes # (1.0-4.8) k/uL Monocytes # (0-1.0) k/uL Eosinophils # (0-0.7) k/uL Basophils # (0-0.2) k/uL Sodium (137-145) mmol/L Potassium (3.5-5.1) mmol/L Chloride (98-107) mmol/L Carbon Dioxide (22-30) mmol/L Anion Gap mmol/L BUN (9-20) mg/dL Creatinine (0.66-1.25) mg/dL Est GFR (CKD-EPI)AfAm (>60 ml/min/1.73 sqM) Est GFR (CKD-EPI)NonAf (>60 ml/min/1.73 sqM) Glucose (74-99) mg/dL Plasma Lactic Acid Justino (0.7-2.0) mmol/L Calcium (8.4-10.2) mg/dL Phosphorus (2.5-4.5) mg/dL Magnesium (1.6-2.3) mg/dL Total Bilirubin (0.2-1.3) mg/dL AST (17-59) U/L ALT (4-49) U/L Alkaline Phosphatase (38-126) U/L Troponin I (0.000-0.034) ng/mL NT-Pro-B Natriuret Pep pg/mL Total Protein (6.3-8.2) g/dL Albumin (3.5-5.0) g/dL TSH (0.465-4.680) mIU/L Urine Color Light Yellow Urine Appearance Cloudy (Clear) Urine pH 6.5 (5.0-8.0) Ur Specific [place] 1.013 (1.001-1.035) Urine Protein 1+ H (Negative) Urine Glucose (UA) Negative (Negative) Urine Ketones Negative (Negative) Urine Blood Large H (Negative) Urine Nitrite Negative (Negative) Urine Bilirubin Negative (Negative) Urine Urobilinogen <2.0 (<2.0) mg/dL Ur Leukocyte Esterase Large H (Negative) Urine RBC 133 H (0-5) /hpf Urine WBC >182 H (0-5) /hpf Urine WBC Clumps Rare H (None) /hpf Ur Squamous Epith Cells <1 (0-4) /hpf Urine Bacteria Rare H (None) /hpf Coronavirus (PCR) Not Detected (Not Detectd) Influenza Type A RNA Not Detected (Not Detectd) Influenza Type B (PCR) Not Detected (Not Detectd) 09/29/21 09/29/21 09/29/21 Range/Units 21:37 21:37 21:37 WBC 12.5 H (3.8-10.6) k/uL RBC 4.75 (4.30-5.90) m/uL Hgb 13.6 (13.0-17.5) gm/dL Hct 42.6 (39.0-53.0) % MCV 89.8 (80.0-100.0) fL MCH 28.6 (25.0-35.0) pg MCHC 31.8 (31.0-37.0) g/dL RDW 13.1 (11.5-15.5) % Plt Count 165 (150-450) k/uL MPV 8.0 Neutrophils % 85 % Lymphocytes % 4 % Monocytes % 9 % Eosinophils % 1 % Basophils % 0 % Neutrophils # 10.7 H (1.3-7.7) k/uL Lymphocytes # 0.4 L (1.0-4.8) k/uL Monocytes # 1.1 H (0-1.0) k/uL Eosinophils # 0.2 (0-0.7) k/uL Basophils # 0.1 (0-0.2) k/uL Sodium 139 (137-145) mmol/L Potassium 4.6 (3.5-5.1) mmol/L Chloride 105 (98-107) mmol/L Carbon Dioxide 26 (22-30) mmol/L Anion Gap 8 mmol/L BUN 34 H (9-20) mg/dL Creatinine 1.55 H (0.66-1.25) mg/dL Est GFR (CKD-EPI)AfAm 49 (>60 ml/min/1.73 sqM) Est GFR (CKD-EPI)NonAf 42 (>60 ml/min/1.73 sqM) Glucose 153 H (74-99) mg/dL Plasma Lactic Acid Justino 1.3 (0.7-2.0) mmol/L Calcium 8.8 (8.4-10.2) mg/dL Phosphorus 2.6 (2.5-4.5) mg/dL Magnesium 2.0 (1.6-2.3) mg/dL Total Bilirubin 0.6 (0.2-1.3) mg/dL AST 20 (17-59) U/L ALT 13 (4-49) U/L Alkaline Phosphatase 65 (38-126) U/L Troponin I (0.000-0.034) ng/mL NT-Pro-B Natriuret Pep pg/mL Total Protein 6.7 (6.3-8.2) g/dL Albumin 4.2 (3.5-5.0) g/dL TSH 1.450 (0.465-4.680) mIU/L Urine Color Urine Appearance (Clear) Urine pH (5.0-8.0) Ur Specific [place] (1.001-1.035) Urine Protein (Negative) Urine Glucose (UA) (Negative) Urine Ketones (Negative) Urine Blood (Negative) Urine Nitrite (Negative) Urine Bilirubin (Negative) Urine Urobilinogen (<2.0) mg/dL Ur Leukocyte Esterase (Negative) Urine RBC (0-5) /hpf Urine WBC (0-5) /hpf Urine WBC Clumps (None) /hpf Ur Squamous Epith Cells (0-4) /hpf Urine Bacteria (None) /hpf Coronavirus (PCR) (Not Detectd) Influenza Type A RNA (Not Detectd) Influenza Type B (PCR) (Not Detectd) 09/29/21 09/29/21 Range/Units 21:37 21:37 WBC (3.8-10.6) k/uL RBC (4.30-5.90) m/uL Hgb (13.0-17.5) gm/dL Hct (39.0-53.0) % MCV (80.0-100.0) fL MCH (25.0-35.0) pg MCHC (31.0-37.0) g/dL RDW (11.5-15.5) % Plt Count (150-450) k/uL MPV Neutrophils % % Lymphocytes % % Monocytes % % Eosinophils % % Basophils % % Neutrophils # (1.3-7.7) k/uL Lymphocytes # (1.0-4.8) k/uL Monocytes # (0-1.0) k/uL Eosinophils # (0-0.7) k/uL Basophils # (0-0.2) k/uL Sodium (137-145) mmol/L Potassium (3.5-5.1) mmol/L Chloride (98-107) mmol/L Carbon Dioxide (22-30) mmol/L Anion Gap mmol/L BUN (9-20) mg/dL Creatinine (0.66-1.25) mg/dL Est GFR (CKD-EPI)AfAm (>60 ml/min/1.73 sqM) Est GFR (CKD-EPI)NonAf (>60 ml/min/1.73 sqM) Glucose (74-99) mg/dL Plasma Lactic Acid Justino (0.7-2.0) mmol/L Calcium (8.4-10.2) mg/dL Phosphorus (2.5-4.5) mg/dL Magnesium (1.6-2.3) mg/dL Total Bilirubin (0.2-1.3) mg/dL AST (17-59) U/L ALT (4-49) U/L Alkaline Phosphatase (38-126) U/L Troponin I 0.058 H* (0.000-0.034) ng/mL NT-Pro-B Natriuret Pep 3470 pg/mL Total Protein (6.3-8.2) g/dL Albumin (3.5-5.0) g/dL TSH (0.465-4.680) mIU/L Urine Color Urine Appearance (Clear) Urine pH (5.0-8.0) Ur Specific [place] (1.001-1.035) Urine Protein (Negative) Urine Glucose (UA) (Negative) Urine Ketones (Negative) Urine Blood (Negative) Urine Nitrite (Negative) Urine Bilirubin (Negative) Urine Urobilinogen (<2.0) mg/dL Ur Leukocyte Esterase (Negative) Urine RBC (0-5) /hpf Urine WBC (0-5) /hpf Urine WBC Clumps (None) /hpf Ur Squamous Epith Cells (0-4) /hpf Urine Bacteria (None) /hpf Coronavirus (PCR) (Not Detectd) Influenza Type A RNA (Not Detectd) Influenza Type B (PCR) (Not Detectd) Disposition <Elena Henriquez - Last Filed: 09/30/21 00:56> Is patient prescribed a controlled substance at d/c from ED?: No <Gildardo Segal - Last Filed: 09/30/21 01:02> Clinical Impression: Urinary tract infection, Generalized weakness, Non-ST elevation myocardial infarction (NSTEMI), Atrial fibrillation, Fever, Weakness Disposition: ADMITTED IP TO THIS HOSP Condition: Fair Referrals: Jeison Reyes MD [Primary Care Provider] - 1-2 days
--- NOTE | 2021-09-29 21:57 | XR ---
EXAMINATION: XR chest 3V DATE AND TIME: 09/29/2021 9:27 PM CLINICAL INDICATION: PHH; Weakness, wheezing TECHNIQUE: 2 AP views and a lateral view COMPARISON: 06/30/2020 FINDINGS: Cardiac pacemaker and EKG leads. Moderately enlarged cardiac silhouette redemonstrated. The lungs appear to be clear and well expanded bilaterally. The pleural spaces are negative. The skeletal structures and soft tissues are negative for acute findings. IMPRESSION: NO ACUTE PROCESS.
[2021-09-29 22:04] LABS: Basophils # (A) 0.1 k/uL (0-0.2); Basophils % (A) 0 %; Eosinophils # (A) 0.2 k/uL (0-0.7); Eosinophils % (A) 1 %; HCT 42.6 % (39.0-53.0); HGB 13.6 gm/dL (13.0-17.5); Lymphocytes # (A) 0.4 k/uL (1.0-4.8); Lymphocytes % (A) 4 %; MCH 28.6 pg (25.0-35.0); MCHC 31.8 g/dL (31.0-37.0); MCV 89.8 fL (80.0-100.0); Monocytes # (A) 1.1 k/uL (0-1.0); Monocytes % (A) 9 %; Neutrophils # (A) 10.7 k/uL (1.3-7.7); Neutrophils % (A) 85 %; Platelet Count 165 k/uL (150-450); RBC 4.75 m/uL (4.30-5.90); RDW 13.1 % (11.5-15.5); WBC 12.5 k/uL (3.8-10.6)
[2021-09-29 22:20] LABS: ALT 13 U/L (4-49); AST 20 U/L (17-59); African American GFR (CKD) 49 (>60 ml/min/1.73 sqM); Albumin 4.2 g/dL (3.5-5.0); Alkaline Phosphatase 65 U/L (38-126); Anion Gap 8 mmol/L; Blood Urea Nitrogen 34 mg/dL (9-20); Calcium 8.8 mg/dL (8.4-10.2); Carbon Dioxide 26 mmol/L (22-30); Chloride 105 mmol/L (98-107); Glucose 153 mg/dL (74-99); Non-African American GFR(CKD) 42 (>60 ml/min/1.73 sqM); Phosphorus 2.6 mg/dL (2.5-4.5); Potassium 4.6 mmol/L (3.5-5.1); Sodium 139 mmol/L (137-145); Total Bilirubin 0.6 mg/dL (0.2-1.3); Total Protein 6.7 g/dL (6.3-8.2)
[2021-09-30 00:21] LABS: Appearance,Urine Cloudy (Clear); Bacteria,Urine Rare /hpf; Bilirubin,Urine Negative (Negative); Blood,Urine Large (Negative); Color,Urine Light Yellow; Glucose,Urine (UA) Negative (Negative); Ketones,Urine Negative (Negative); Leukocyte Esterase,Urine Large (Negative); Nitrite,Urine Negative (Negative); PH, Urine 6.5 (5.0-8.0); Protein,Urine 1+ (Negative); RBC,Urine 133 /hpf (0-5); Specific Gravity,Urine 1.013 (1.001-1.035); Squamous Epithelial Cell,Urine <1 /hpf (0-4); Urobilinogen,Urine <2.0 mg/dL (<2.0); WBC,Urine >182 /hpf (0-5)
[2021-09-30] MEDS ORDERED: NALOXONE 0.4 MG/ML 1 ML VIAL IV PRN (00:49)
[2021-09-30] MEDS ORDERED: MORPHINE SULFATE 4 MG/ML SYRINGE IV PRN (00:49)
[2021-09-30] MEDS ORDERED: ACETAMINOPHEN TAB 325 MG TAB PO PRN (00:49)
[2021-09-30] MEDS ORDERED: ONDANSETRON 4 MG/2 ML VIAL IVP PRN (00:49)
[2021-09-30] MEDS ORDERED: LORazepam 2 MG/ML INJ IV PRN (00:49)
[2021-09-30] MEDS: SODIUM CHLORIDE 0.9% 1,000 ML IV SCH ×4 (01:59→21:58)
--- NOTE | 2021-09-30 11:51 | P.CRDCN ---
History of Present Illness History of present illness: HISTORY OF PRESENT ILLNESS: This is a 81-year-old male with a past medical history significant for coronary artery disease with known RCA occlusion, hypertension, hyperlipidemia, permanent pacemaker, and permanent atrial fibrillation/flutter on Coumadin. Patient follows in the office with Dr. Nation. We have been asked to see the patient in consultation for abnormal troponins. Patient examined at the bedside. Patient presented to the hospital with a chief complaint of fever, chills, generalized weakness. Found to have a UTI and being treated with IV antibiotics. Troponins were drawn and mildly abnormal. He does not have any symptoms of chest pain, shortness of breath, lightheadedness, dizziness, palpitations, syncope or near syncope. DIAGNOSTICS * EKG reveals ventricular paced rhythm, underlying atrial fibrillation heart rate 68 * Laboratory data: Troponin 0.05, 0.27, 0.06, proBNP 3470, UA positive for UTI, WBC 12.5, hemoglobin 13.6, platelets 165, sodium 139, potassium 4.6, BUN 34, serum creatinine 1.5 * Current home cardiac medications include * Most recent echocardiogram 05/2021 Echo completed ejection fraction 45-50%, basal inferior and basal inferior septal LV wall akinesis, mild aortic stenosis, mild mitral regurgitation * Patient underwent Lexiscan stress test in August 2019 which was negative for stress-induced ischemia * Cardiac catheterization history: August 2013 revealing right dominant system, recannulized RCA with 70-80% lesion and sluggish flow, left system free of significant disease, filling pressures acceptable. REVIEW OF SYSTEMS: At the time of my exam: CONSTITUTIONAL: Denies fever or chills. HEENT: Denies blurred vision, vision changes, or eye pain. Denies hemoptysis CARDIOVASCULAR: Denies chest pain. Denies orthopnea. Denies PND. Denies palpitat ions RESPIRATORY: Denies shortness of breath. GASTROINTESTINAL: Denies abdominal pain. Denies nausea or vomiting. HEMATOLOGIC: Denies bleeding disorders. GENITOURINARY: Denies any blood in urine. SKIN: Denies pruitis. Denies rash. PHYSICAL EXAM: VITAL SIGNS: Reviewed. GENERAL: Well-developed in no acute distress. HEENT: Head is normocephalic. Pupils are equal, round. Sclerae anicteric. Mucous membranes of the mouth are moist. Neck supple. No JVD or thyromegaly LUNGS: Respirations even and unlabored. Lungs essentially clear to auscultation bilaterally. HEART: Regular rate and rhythm. S1 and S2 heard. Soft systolic murmur noted. ABDOMEN: Soft. Nondistended. Nontender. EXTREMITIES: Normal range of motion. No clubbing or cyanosis. Peripheral pulses intact. No lower extremity edema NEUROLOGIC: Awake and alert. Oriented x 3. ASSESSMENT: Urinary tract infection Fever, Chills Generalized weakness Leukocytosis Acute on chronic kidney disease Abnormal troponins, secondary to above, no evidence of ACS, patient denies any chest pain or shortness of breath, no ischemia noted on EKG. Permanent atrial fibrillation, on Warfarin Coronary artery disease with known RCA occlusion History of permanent pacemaker insertion Ischemic cardiomyopathy, EF 45-50% Hypertension Hyperlipidemia Multiple sclerosis PLAN: Continue home medications including aspirin, statin, digoxin, Imdur, lisinopril, metoprolol tartrate Rest of management pre primary No further recommendations from a cardiac standpoint We will sign off. Please reconsult if needed Follow up outpatient with Dr. Nation Nurse practitioner note has been reviewed by physician. Signing provider agrees with the documented findings, assessment, and plan of care. Past Medical History Past Medical History: Atrial Fibrillation, Cancer, CVA/TIA, Hyperlipidemia, Hypertension, Osteoarthritis (OA), Prostate Disorder, Thyroid Disorder Additional Past Medical History / Comment(s): MS, hx. prostate cancer 2014-had radiation. Generator change-01/14/2019 PACEMAKER ONLY, NO DEFIBRILLATOR Last Myocardial Infarction Date:: unk DATE History of Any Multi-Drug Resistant Organisms: None Reported Past Surgical History: Back Surgery, Heart Catheterization, Hernia Repair, Pacemaker Additional Past Surgical History / Comment(s): PACEMAKER, Generator change- 01/14/2019 Past Anesthesia/Blood Transfusion Reactions: No Reported Reaction Type of Cardiac Device: Permanent Pacemaker Device Placement Date:: 05/02/11 Past Psychological History: No Psychological Hx Reported Smoking Status: Never smoker Past Alcohol Use History: Occasional Additional Past Alcohol Use History / Comment(s): STARTED SMOKING AT AGE 20 quit smoking 1992, smoked 1ppd Past Drug Use History: None Reported - Past Family History Mother Family Medical History: No Reported History Sister(s) Family Medical History: Cancer Additional Family Medical History / Comment(s): melanoma Medications and Allergies Home Medications Medication Instructions Recorded Confirmed Type Aspirin 81 mg PO DAILY@0700 09/02/13 09/29/21 History Baclofen [Lioresal] 10 mg PO TID@0700,1500,2300 09/02/13 09/29/21 History Digoxin [Lanoxin] 125 mcg PO HS@229909/02/13 09/29/21 History Isosorbide Mononitrate [Imdur] 60 mg PO HS@229909/02/13 09/29/21 History Ramipril [Altace] 10 mg PO DAILY@182909/02/13 09/29/21 History Simvastatin [Zocor] 40 mg PO HS@182909/02/13 09/29/21 History Warfarin [Coumadin] 2.5 mg PO SA@182909/02/13 09/29/21 History Warfarin [Coumadin] 1.25 mg PO SUMOTUWETHFR@182903/06/18 09/29/21 History Tamsulosin [Flomax] 0.4 mg PO BID@0700,1830 09/03/19 09/29/21 History Gabapentin [Neurontin] 300 mg PO TID@0700,1500,2300 04/20/20 09/29/21 History Metoprolol Tartrate [Lopressor] 75 mg PO BID@0700,1830 04/20/20 09/29/21 History Allergies Allergy/AdvReac Type Severity Reaction Status Date / Time No Known Allergies Allergy Verified 09/29/21 22:09 Physical Exam Vitals: Vital Signs Temp Pulse Pulse Resp BP BP Pulse Ox 09/30/21 04:00 98.9 F 61 18 134/78 96 09/30/21 02:03 98.8 F 66 16 122/72 97 09/29/21 23:59 98.7 F 61 18 119/60 94 L 09/29/21 21:51 74 18 146/78 94 L 09/29/21 19:05 101.6 F H 64 16 150/74 97 Intake and Output 09/29/21 09/30/21 09/30/21 22:59 06:59 14:59 Intake Total 610 Output Total 1200 Balance -590 Intake: Intake, IV Titration 490 Amount Sodium Chloride 0.9% 1, 390 000 ml @ 130 mls/hr IV . Q7H42M [facility] Rx#:[id number] cefTRIAXone 1 gm In 100 Sodium Chloride 0.9% 50 ml @ 100 mls/hr IVPB ONCE STA Rx#:[id number] Oral 120 Output: Urine 1200 Uretheral ([place]) 1000 Other: Weight 81.647 kg 81.647 kg Results 09/29/21 21:37 09/29/21 21:37 Cardiac Enzymes 09/29/21 09/29/21 09/30/21 Range/Units 21:37 21:37 00:04 AST 20 (17-59) U/L Troponin I 0.058 H* 0.073 H* (0.000-0.034) ng/mL 09/30/21 Range/Units 04:32 AST (17-59) U/L Troponin I 0.060 H* (0.000-0.034) ng/mL CBC 09/29/21 Range/Units 21:37 WBC 12.5 H (3.8-10.6) k/uL RBC 4.75 (4.30-5.90) m/uL Hgb 13.6 (13.0-17.5) gm/dL Hct 42.6 (39.0-53.0) % Plt Count 165 (150-450) k/uL Comprehensive Metabolic Panel 09/29/21 Range/Units 21:37 Sodium 139 (137-145) mmol/L Potassium 4.6 (3.5-5.1) mmol/L Chloride 105 (98-107) mmol/L Carbon Dioxide 26 (22-30) mmol/L BUN 34 H (9-20) mg/dL Creatinine 1.55 H (0.66-1.25) mg/dL Glucose 153 H (74-99) mg/dL Calcium 8.8 (8.4-10.2) mg/dL AST 20 (17-59) U/L ALT 13 (4-49) U/L Alkaline Phosphatase 65 (38-126) U/L Total Protein 6.7 (6.3-8.2) g/dL Albumin 4.2 (3.5-5.0) g/dL Current Medications Generic Name Dose Route Start Last Admin Trade Name Freq PRN Reason Stop Dose Admin Acetaminophen 650 mg 09/30/21 00:49 Acetaminophen Tab 325 Mg Tab PO Q6HR PRN Mild Pain or Fever > 100.5 Sodium Chloride 1,000 mls @ 130 mls/hr 09/30/21 01:00 09/30/21 01:59 Saline 0.9% IV 130 mls/hr .Q7H42M [facility] Administration Lorazepam 0.5 mg 09/30/21 00:49 Lorazepam 2 Mg/Ml Inj IV Q6HR PRN Anxiety Morphine Sulfate 4 mg 09/30/21 00:49 Morphine Sulfate 4 Mg/Ml Syringe IV Q4HR PRN Severe Pain Naloxone HCl 0.2 mg 09/30/21 00:49 Naloxone 0.4 Mg/Ml 1 Ml Vial IV Q2M PRN Opioid Reversal Ondansetron HCl 4 mg 09/30/21 00:49 Ondansetron 4 Mg/2 Ml Vial IVP Q8HR PRN Nausea And Vomiting Intake and Output 09/29/21 09/30/21 09/30/21 22:59 06:59 14:59 Intake Total 610 Output Total 1200 Balance -590 Intake: Intake, IV Titration 490 Amount Sodium Chloride 0.9% 1, 390 000 ml @ 130 mls/hr IV . Q7H42M [facility] Rx#:[id number] cefTRIAXone 1 gm In 100 Sodium Chloride 0.9% 50 ml @ 100 mls/hr IVPB ONCE STA Rx#:[id number] Oral 120 Output: Urine 1200 Uretheral ([place]) 1000 Other: Weight 81.647 kg 81.647 kg 09/29/21 21:37 09/29/21 21:37
[2021-09-30] MEDS: BACLOFEN 10 MG TAB PO SCH ×2 (15:17→21:56)
[2021-09-30] MEDS: GABAPENTIN 300 MG CAP PO SCH ×2 (15:17→21:56)
[2021-09-30] MEDS ORDERED: MAGNESIUM HYDROXIDE 2,400 MG/10 ML CUP PO PRN (15:24)
--- NOTE | 2021-09-30 15:35 | P.HPIM ---
History of Present Illness H&P Date: 09/30/21 This is a pleasant 81-year-old male who presented to the emergency department with fevers, increasing weakness, inability to walk with possible features of sepsis secondary to UTI. Patient does have a past medical history of atrial fibrillation maintained on Coumadin along with prostate cancer, CVA, TIA, hyperlipidemia, hypertension, osteoarthritis, thyroid disorder, and pacemaker. Patient follows with Dr. Jeison Reyes in the outpatient setting. Patient has reportedly been feeling more weak over the last few days to weeks and found himself unable to get up and stand or walk and this is a major concern of his. Patient reports over the last one year he has been hospitalized more frequently and feels his overall health is declining. Patient does follow with Dr. Nation cardiology in the outpatient setting and is maintained on Coumadin for atrial fibrillation and will have pharmacy to dose and get an INR. Chest x-ray on admission shows no acute process an EKG shows electronic ventricular pacemaker with a ventricular rate of 68. Labs on admission show a white blood count of 12.5, hemoglobin is 13.6, platelets are 165, sodium 139, potassium 4.6, BUN 34, creatinine 1.55, lactic acid was 1.3, magnesium 2.0, troponin 0.058 and repeat was 0.060, urinalysis revealed large blood and large leukocyte esterase and urine culture was sent and pending at this time. COVID-19 along with influenza are both negative. Patient was given a dose of ceftriaxone in the ER and have consulted infectious disease and we'll continue with ceftriaxone and await for cultures. Appropriate home medications have been resumed and patient is maintained on Coumadin and will obtain an INR and have pharmacy to dose. Will have physical therapy evaluate the patient. Review Of Systems: Constitutional: Reports of fever, chills, no night sweats. No weight change. Reports significant weakness and inability to walk, reports fatigue or lethargy. No daytime sleepiness. EENT: No headache. No blurred vision or double vision, no loss of vision. No loss of Hearing, no ringing in the ears, no dizziness. No nasal drainage or congestion. No epistaxis. No sore throat. Lungs: No shortness of breath, cough, no sputum production. No wheezing. Cardiovascular: No chest pain, no lower extremity edema. No palpitations. No paroxysmal nocturnal dyspnea. No orthopnea. No lightheadedness or dizziness. No syncopal episodes. Abdominal: No abdominal pain. No nausea, vomiting. No diarrhea. Reports some mild constipation. No bloody or tarry stools.. No loss of appetite. Genitourinary: Reports dysuria, no reports of increased frequency, urgency. Reports he chronically straight cathed twice daily Musculoskeletal: Reports myalgias. No muscle weakness, reports gait dysfunction, no frequent falls. No back pain. No neck pain. Integumentary: No wounds, no lesions. No rash or pruritus. No unusual bruising. No change in hair or nails. Neurologic: No aphasia. No facial droop. No change in mentation. No head injury. No headache. No paralysis. No paresthesia. Psychiatric: No depression. No anxiety. No mood swings. Endocrine: No abnormal blood sugars. No weight change. No excessive sweating or thirst. No cold intolerance. PHYSICAL EXAMINATION: GENERAL: The patient is alert and oriented x4, Well developed, well nourished. Currently febrile HEENT: Pupils are round and equally reacting to light. EOMI. no scleral icterus. No conjunctival pallor. Normocephalic, atraumatic. No pharyngeal erythema. No thyromegaly. CARDIOVASCULAR: S1 and S2 muffled PULMONARY: diminished breath sounds bilaterally with no wheezing or rhonchi noted. ABDOMEN: soft. Nontender on exam. Minimally, normoactive bowel sounds. No palpable organomegaly. MUSCULOSKELETAL: No joint swelling or deformity. EXTREMITIES: No cyanosis, clubbing, or pedal edema. NEUROLOGICAL: Gross neurological examination did not reveal any focal deficits. Diffuse weakness SKIN: No rashes. Assessment: Acute urinary tract infection with sepsis, present on admission Fevers secondary to above Weakness and gait dysfunction possibly secondary to above Positive troponins, NSTEMI most likely secondary to sepsis, ruled out ACS per cardiology Acute on chronic kidney disease History of permanent atrial fibrillation/flutter with pacemaker, maintained on Coumadin Ischemic cardiomyopathy, most recent EF was 45-50% History of prostate cancer and straight caths twice daily in the outpatient setting History of hypertension History of multiple sclerosis Hyperlipidemia History of CVA/TIA GI prophylaxis DVT prophylaxis Full code Plan: Recommend to continue with current medications and management with cardiology an d infectious disease following. Patient did receive a dose of IV ceftriaxone in the ER and urine was positive and sent for culture. Indwelling Mendenhall catheter placed and will continue to monitor intake and output and await cultures. Patient maintained on IV normal saline at 130 mL per hour although will decrease and follow-up on repeat labs. Patient had elevated kidney functions on admission and will follow-up with repeat labs. Patient also with some weakness and inability to walk that he has been noticing over the last few days and will have physical therapy evaluate the patient. Patient normally straight caths twice daily although will continue with Mendenhall catheter for now. Patient is maintained on Coumadin and will obtain INR and have pharmacy dose. Cardiology evaluated the patient for elevated troponins were mild and ruled out ACS and recommend continue telemetry monitoring for now as patient has atrial fibrillation. Patient is currently a paced rhythm. Patient continues with fevers and recommend using Tylenol and monitoring as well. Patient having some feelings of constipation will add when necessary medications and this was discussed with the patient. Infectious disease was consulted and appreciate input and recommendations. Will follow-up with repeat labs in the a.m. Encouraged increase activity as tolerated. The impression and plan of care has been dictated by Vivian Childs, nurse practitioner as directed. Dr. Ck MD I have performed a history and examination and MDM of this patient, discussed the same with the dictator, and agree with the dictator's assessment and plan as written ,documented as a scribe. Based on total visit time, I have performed more than 50% of the visit. Any additional findings or plans will be noted. Past Medical History Past Medical History: Atrial Fibrillation, Cancer, CVA/TIA, Hyperlipidemia, Hypertension, Osteoarthritis (OA), Prostate Disorder, Thyroid Disorder Additional Past Medical History / Comment(s): MS, hx. prostate cancer 2014-had radiation. Generator change-01/14/2019 PACEMAKER ONLY, NO DEFIBRILLATOR Last Myocardial Infarction Date:: unk DATE History of Any Multi-Drug Resistant Organisms: None Reported Past Surgical History: Back Surgery, Heart Catheterization, Hernia Repair, Pacemaker Additional Past Surgical History / Comment(s): PACEMAKER, Generator change- 01/14/2019 Past Anesthesia/Blood Transfusion Reactions: No Reported Reaction Type of Cardiac Device: Permanent Pacemaker Device Placement Date:: 05/02/11 Past Psychological History: No Psychological Hx Reported Smoking Status: Never smoker Past Alcohol Use History: Occasional Additional Past Alcohol Use History / Comment(s): STARTED SMOKING AT AGE 20 quit smoking 1992, smoked 1ppd Past Drug Use History: None Reported - Past Family History Mother Family Medical History: No Reported History Sister(s) Family Medical History: Cancer Additional Family Medical History / Comment(s): melanoma Medications and Allergies Home Medications Medication Instructions Recorded Confirmed Type Aspirin 81 mg PO DAILY@0700 09/02/13 09/29/21 History Baclofen [Lioresal] 10 mg PO TID@0700,1500,2300 09/02/13 09/29/21 History Digoxin [Lanoxin] 125 mcg PO HS@2300 09/02/13 09/29/21 History Isosorbide Mononitrate [Imdur] 60 mg PO HS@2300 09/02/13 09/29/21 History Ramipril [Altace] 10 mg PO DAILY@1830 09/02/13 09/29/21 History Simvastatin [Zocor] 40 mg PO HS@1830 09/02/13 09/29/21 History Warfarin [Coumadin] 2.5 mg PO SA@1830 09/02/13 09/29/21 History Warfarin [Coumadin] 1.25 mg PO SUMOTUWETHFR@1830 03/06/18 09/29/21 History Tamsulosin [Flomax] 0.4 mg PO BID@0700,1830 09/03/19 09/29/21 History Gabapentin [Neurontin] 300 mg PO TID@0700,1500,2300 04/20/20 09/29/21 History Metoprolol Tartrate [Lopressor] 75 mg PO BID@0700,1830 04/20/20 09/29/21 History Allergies Allergy/AdvReac Type Severity Reaction Status Date / Time No Known Allergies Allergy Verified 09/29/21 22:09 Physical Exam Vitals: Vital Signs Temp Pulse Pulse Resp BP BP Pulse Ox 09/30/21 04:00 98.9 F 61 18 134/78 96 09/30/21 02:03 98.8 F 66 16 122/72 97 09/29/21 23:59 98.7 F 61 18 119/60 94 L 09/29/21 21:51 74 18 146/78 94 L 09/29/21 19:05 101.6 F H 64 16 150/74 97 Intake and Output 09/29/21 09/30/21 09/30/21 22:59 06:59 14:59 Intake Total 610 Output Total 1200 800 Balance -590 -800 Intake: Intake, IV Titration 490 Amount Sodium Chloride 0.9% 1, 390 000 ml @ 130 mls/hr IV . Q7H42M [facility] Rx#:[id number] cefTRIAXone 1 gm In 100 Sodium Chloride 0.9% 50 ml @ 100 mls/hr IVPB ONCE STA Rx#:[id number] Oral 120 Output: Urine 1200 800 Uretheral (Mendenhall) 1000 Other: Weight 81.647 kg 81.647 kg Results CBC & Chem 7: 09/29/21 21:37 09/29/21 21:37 Labs: Abnormal Lab Results - Last 24 Hours (Table) 09/29/21 09/29/21 09/29/21 Range/Units 21:37 21:37 21:37 WBC 12.5 H (3.8-10.6) k/uL Neutrophils # 10.7 H (1.3-7.7) k/uL Lymphocytes # 0.4 L (1.0-4.8) k/uL Monocytes # 1.1 H (0-1.0) k/uL BUN 34 H (9-20) mg/dL Creatinine 1.55 H (0.66-1.25) mg/dL Glucose 153 H (74-99) mg/dL Troponin I (0.000-0.034) ng/mL Urine Protein 1+ H (Negative) Urine Blood Large H (Negative) Ur Leukocyte Esterase Large H (Negative) Urine RBC 133 H (0-5) /hpf Urine WBC >182 H (0-5) /hpf Urine WBC Clumps Rare H (None) /hpf Urine Bacteria Rare H (None) /hpf 09/29/21 09/30/21 09/30/21 Range/Units 21:37 00:04 04:32 WBC (3.8-10.6) k/uL Neutrophils # (1.3-7.7) k/uL Lymphocytes # (1.0-4.8) k/uL Monocytes # (0-1.0) k/uL BUN (9-20) mg/dL Creatinine (0.66-1.25) mg/dL Glucose (74-99) mg/dL Troponin I 0.058 H* 0.073 H* 0.060 H* (0.000-0.034) ng/mL Urine Protein (Negative) Urine Blood (Negative) Ur Leukocyte Esterase (Negative) Urine RBC (0-5) /hpf Urine WBC (0-5) /hpf Urine WBC Clumps (None) /hpf Urine Bacteria (None) /hpf Microbiology - Last 24 Hours (Table) 09/29/21 21:37 Urine Culture - Preliminary Urine,Voided Thrombosis Risk Factor Assmnt - DVT/VTE Prophylaxis DVT/VTE Prophylaxis: Pharmacologic Prophylaxis ordered - Choose All That Apply Any of the Below Risk Factors Present?: No Other Risk Factors: No Other congenital or acquired thrombophilia - If yes, enter type in comment: No Thrombosis Risk Factor Assessment Level: Very Low Risk Assessment and Plan Time with Patient: Greater than 30
[2021-09-30 15:49] LABS: INR 2.5 (<1.2); Prothrombin Time 24.9 sec (9.0-12.0)
[2021-09-30] MEDS: SENNOSIDES-DOCUSATE SODIUM 1 EACH TAB PO SCH ×2 (17:10→21:56)
[2021-09-30] MEDS: METOPROLOL TARTRATE 25 MG TAB PO SCH (17:22)
[2021-09-30] MEDS: ATORVASTATIN 20 MG TAB PO SCH (17:22)
[2021-09-30] MEDS: lisinopriL 20 MG TAB PO SCH (17:22)
[2021-09-30] MEDS: TAMSULOSIN 0.4 MG CAP.ER.24H PO SCH (17:23)
[2021-09-30] MEDS ORDERED: WARFARIN 2.5 MG TAB PO ONE (18:00)
[2021-09-30] MEDS: ISOSORBIDE MONONITRATE ER 60 MG TAB.ER.24H PO SCH (21:55)
[2021-09-30] MEDS: DIGOXIN 125 MCG TAB PO SCH (21:56)
--- NOTE | 2021-09-30 22:45 | P.CONS ---
History of Present Illness - Reason for Consult Consult date: 09/30/21 UTI/sepsis Requesting physician: Vivian Childs - Chief Complaint Weakness 2 days - History of Present Illness Patient is a 81-year male with a past medical he significant for urinary outflow obstruction for the patient to self catheterize himself twice a day, patient presented to the ER for evaluation of increasing weakness inability to walk and having a fever, patient on presentation to the hospital did have a fever of 101.6 daily Fahrenheit patient was not hypoxic did have white count of 12.5 with a left shift BUN/creatinine was mildly elevated liver enzymes are normal cardiac enzymes elevated urine has been positive COVID and influenza PCR was negative patient did have a chest x-ray no acute process, patient be complaining of basically weakness no energy has been complaining of some cloudy urine but no significant burning no hematuria suprapubic or flank pain patient was given a dose of Rocephin and admitted to the hospital infectious disease was consulted for further management Review of Systems Positive point has been mentioned in the HPI rest of the systems are negative Past Medical History Past Medical History: Atrial Fibrillation, Cancer, CVA/TIA, Hyperlipidemia, H ypertension, Osteoarthritis (OA), Prostate Disorder, Thyroid Disorder Additional Past Medical History / Comment(s): MS, hx. prostate cancer 2014-had radiation. Generator change-01/14/2019 PACEMAKER ONLY, NO DEFIBRILLATOR Last Myocardial Infarction Date:: unk DATE History of Any Multi-Drug Resistant Organisms: None Reported Past Surgical History: Back Surgery, Heart Catheterization, Hernia Repair, Pacemaker Additional Past Surgical History / Comment(s): PACEMAKER, Generator change- 01/14/2019 Past Anesthesia/Blood Transfusion Reactions: No Reported Reaction Type of Cardiac Device: Permanent Pacemaker Device Placement Date:: 05/02/11 Past Psychological History: No Psychological Hx Reported Smoking Status: Never smoker Past Alcohol Use History: Occasional Additional Past Alcohol Use History / Comment(s): STARTED SMOKING AT AGE 20 quit smoking 1992, smoked 1ppd Past Drug Use History: None Reported - Past Family History Mother Family Medical History: No Reported History Sister(s) Family Medical History: Cancer Additional Family Medical History / Comment(s): melanoma Medications and Allergies Home Medications Medication Instructions Recorded Confirmed Type Aspirin 81 mg PO DAILY@0700 09/02/13 09/29/21 History Baclofen [Lioresal] 10 mg PO TID@0700,1500,2300 09/02/13 09/29/21 History Digoxin [Lanoxin] 125 mcg PO HS@229909/02/13 09/29/21 History Isosorbide Mononitrate [Imdur] 60 mg PO HS@23009/02/13 09/29/21 History Ramipril [Altace] 10 mg PO DAILY@182909/02/13 09/29/21 History Simvastatin [Zocor] 40 mg PO HS@182909/02/13 09/29/21 History Warfarin [Coumadin] 2.5 mg PO SA@182909/02/13 09/29/21 History Warfarin [Coumadin] 1.25 mg PO SUMOTUWETHFR@182903/06/18 09/29/21 History Tamsulosin [Flomax] 0.4 mg PO BID@0700,1830 09/03/19 09/29/21 History Gabapentin [Neurontin] 300 mg PO TID@0700,1500,2300 04/20/20 09/29/21 History Metoprolol Tartrate [Lopressor] 75 mg PO BID@0700,1830 04/20/20 09/29/21 History Allergies Allergy/AdvReac Type Severity Reaction Status Date / Time No Known Allergies Allergy Verified 09/29/21 22:09 Physical Exam Vitals: Vital Signs Temp Pulse Pulse Resp BP BP Pulse Ox 09/30/21 04:00 98.9 F 61 18 134/78 96 09/30/21 02:03 98.8 F 66 16 122/72 97 09/29/21 23:59 98.7 F 61 18 119/60 94 L 09/29/21 21:51 74 18 146/78 94 L 09/29/21 19:05 101.6 F H 64 16 150/74 97 Intake and Output 09/29/21 09/30/21 09/30/21 22:59 06:59 14:59 Intake Total 610 Output Total 1200 800 Balance -590 -800 Intake: Intake, IV Titration 490 Amount Sodium Chloride 0.9% 1, 390 000 ml @ 130 mls/hr IV . Q7H42M [facility] Rx#:[id number] cefTRIAXone 1 gm In 100 Sodium Chloride 0.9% 50 ml @ 100 mls/hr IVPB ONCE STA Rx#:[id number] Oral 120 Output: Urine 1200 800 Uretheral (Mendenhall) 1000 Other: Weight 81.647 kg 81.647 kg GENERAL DESCRIPTION: Elderly male lying in bed, no distress. No tachypnea or accessory muscle of respiration use. HEENT: Shows Pallor , no scleral icterus. Oral mucous membrane is dry. No pharyngeal erythema or thrush NECK: Trachea central, no thyromegaly. LUNGS: Unlabored breathing. Clear to auscultation anteriorly. No wheeze or crackle. HEART: S1, S2, regular rate and rhythm. No loud murmur ABDOMEN: Soft, no tenderness , guarding or rigidity, no organomegaly EXTREMITIES: No edema of feet. SKIN: No rash, no masses palpable. NEUROLOGICAL: The patient is awake, alert, oriented x3, mood and affect normal. Results CBC & Chem 7: 09/29/21 21:37 09/29/21 21:37 Labs: Abnormal Lab Results - Last 24 Hours (Table) 09/29/21 09/29/21 09/29/21 Range/Units 21:37 21:37 21:37 WBC 12.5 H (3.8-10.6) k/uL Neutrophils # 10.7 H (1.3-7.7) k/uL Lymphocytes # 0.4 L (1.0-4.8) k/uL Monocytes # 1.1 H (0-1.0) k/uL BUN 34 H (9-20) mg/dL Creatinine 1.55 H (0.66-1.25) mg/dL Glucose 153 H (74-99) mg/dL Troponin I (0.000-0.034) ng/mL Urine Protein 1+ H (Negative) Urine Blood Large H (Negative) Ur Leukocyte Esterase Large H (Negative) Urine RBC 133 H (0-5) /hpf Urine WBC >182 H (0-5) /hpf Urine WBC Clumps Rare H (None) /hpf Urine Bacteria Rare H (None) /hpf 09/29/21 09/30/21 09/30/21 Range/Units 21:37 00:04 04:32 WBC (3.8-10.6) k/uL Neutrophils # (1.3-7.7) k/uL Lymphocytes # (1.0-4.8) k/uL Monocytes # (0-1.0) k/uL BUN (9-20) mg/dL Creatinine (0.66-1.25) mg/dL Glucose (74-99) mg/dL Troponin I 0.058 H* 0.073 H* 0.060 H* (0.000-0.034) ng/mL Urine Protein (Negative) Urine Blood (Negative) Ur Leukocyte Esterase (Negative) Urine RBC (0-5) /hpf Urine WBC (0-5) /hpf Urine WBC Clumps (None) /hpf Urine Bacteria (None) /hpf Microbiology - Last 24 Hours (Table) 09/29/21 21:37 Urine Culture - Preliminary Urine,Voided Assessment and Plan (1) UTI (urinary tract infection) Current Visit: Yes Status: Acute Code(s): N39.0 - URINARY TRACT INFECTION, SITE NOT SPECIFIED SNOMED Code(s): 76365454 Plan: 1patient presented hospital with fever weakness in this patient who do have a risk factor of self-catheterization for urinary outflow obstruction did have a positive UA likely component of symptomatic urinary tract infection likely from enteric gram-negative pathogen. 2Rocephin 1 g daily while waiting for the culture to finalize. We will follow on clinical condition and cultures to further adjust medication if needed Thank you for this consultation will follow this patient along with you Time with Patient: Greater than 30
[2021-10-01] MEDS: BACLOFEN 10 MG TAB PO SCH ×3 (06:21→22:02)
[2021-10-01] MEDS: GABAPENTIN 300 MG CAP PO SCH ×3 (06:21→22:02)
[2021-10-01] MEDS: TAMSULOSIN 0.4 MG CAP.ER.24H PO SCH ×2 (06:22→18:23)
[2021-10-01] MEDS: METOPROLOL TARTRATE 25 MG TAB PO SCH ×2 (06:22→18:26)
[2021-10-01] MEDS: ASPIRIN 81 MG PO SCH (06:22)
--- NOTE | 2021-10-01 06:29 | P.GSCN ---
History of Present Illness Consult date: 09/30/21 History of present illness: The patient is 81. He is admitted with weakness. He has a known history of bladder issues. He does catheterization twice daily. He was along standing patient of DR Bryant who had placed him on cic.He now sees Dr Padilla. His urine looks infected. There is question of cardiac issues for this admission. Review of Systems All systems: negative - Constitutional Denies fever, Denies weight loss - EENT Eyes: denies blurred vision Ears, nose, mouth and throat: Denies dysphagia - Cardiovascular Denies chest pain, Denies shortness of breath - Respiratory Denies cough, Denies 7 - Gastrointestinal Reports as per HPI - Genitourinary Denies dysuria, Denies hematuria - Integumentary Denies rash, Denies unusual bruising - Neurological Denies headaches, Denies syncope - Hematologic/Lymphatic Denies easy bleeding, Denies easy bruising Past Medical History Past Medical History: Atrial Fibrillation, Cancer, CVA/TIA, Hyperlipidemia, Hypertension, Osteoarthritis (OA), Prostate Disorder, Thyroid Disorder Additional Past Medical History / Comment(s): MS, hx. prostate cancer 2014-had radiation. Generator change-01/14/2019 PACEMAKER ONLY, NO DEFIBRILLATOR Last Myocardial Infarction Date:: unk DATE History of Any Multi-Drug Resistant Organisms: None Reported Past Surgical History: Back Surgery, Heart Catheterization, Hernia Repair, Pacemaker Additional Past Surgical History / Comment(s): PACEMAKER, Generator change- 01/14/2019 Past Anesthesia/Blood Transfusion Reactions: No Reported Reaction Type of Cardiac Device: Permanent Pacemaker Device Placement Date:: 05/02/11 Past Psychological History: No Psychological Hx Reported Smoking Status: Never smoker Past Alcohol Use History: Occasional Additional Past Alcohol Use History / Comment(s): STARTED SMOKING AT AGE 20 quit smoking 1992, smoked 1ppd Past Drug Use History: None Reported - Past Family History Mother Family Medical History: No Reported History Sister(s) Family Medical History: Cancer Additional Family Medical History / Comment(s): melanoma Medications and Allergies Home Medications Medication Instructions Recorded Confirmed Type Aspirin 81 mg PO DAILY@0700 09/02/13 09/29/21 History Baclofen [Lioresal] 10 mg PO TID@0700,1500,2300 09/02/13 09/29/21 History Digoxin [Lanoxin] 125 mcg PO HS@2300 09/02/13/09/22 History Isosorbide Mononitrate [Imdur] 60 mg PO HS@229909/02/13 09/29/21 History Ramipril [Altace] 10 mg PO DAILY@182909/02/13 09/29/21 History Simvastatin [Zocor] 40 mg PO HS@182909/02/13 09/29/21 History Warfarin [Coumadin] 2.5 mg PO SA@182909/02/13 09/29/21 History Warfarin [Coumadin] 1.25 mg PO SUMOTUWETHFR@182903/06/18 09/29/21 History Tamsulosin [Flomax] 0.4 mg PO BID@0700,182909/03/19 09/29/21 History Gabapentin [Neurontin] 300 mg PO TID@0700,1500,229904/20/20 09/29/21 History Metoprolol Tartrate [Lopressor] 75 mg PO BID@0700,18304/20/20 09/29/21 History Allergies Allergy/AdvReac Type Severity Reaction Status Date / Time No Known Allergies Allergy Verified 09/29/21 22:09 Surgical - Exam Vital Signs Temp Pulse Resp BP Pulse Ox 101.6 F H 64 16 150/74 97 09/29/21 19:05 09/29/21 19:05 09/29/21 19:05 09/29/21 19:05 09/29/21 19:05 Results - Labs 09/29/21 21:37 09/29/21 21:37 Abnormal Lab Results - Last 24 Hours (Table) 09/29/21 09/29/21 09/29/21 Range/Units 21:37 21:37 21:37 WBC 12.5 H (3.8-10.6) k/uL Neutrophils # 10.7 H (1.3-7.7) k/uL Lymphocytes # 0.4 L (1.0-4.8) k/uL Monocytes # 1.1 H (0-1.0) k/uL BUN 34 H (9-20) mg/dL Creatinine 1.55 H (0.66-1.25) mg/dL Glucose 153 H (74-99) mg/dL Troponin I (0.000-0.034) ng/mL Urine Protein 1+ H (Negative) Urine Blood Large H (Negative) Ur Leukocyte Esterase Large H (Negative) Urine RBC 133 H (0-5) /hpf Urine WBC >182 H (0-5) /hpf Urine WBC Clumps Rare H (None) /hpf Urine Bacteria Rare H (None) /hpf 09/29/21 09/30/21 09/30/21 Range/Units 21:37 00:04 04:32 WBC (3.8-10.6) k/uL Neutrophils # (1.3-7.7) k/uL Lymphocytes # (1.0-4.8) k/uL Monocytes # (0-1.0) k/uL BUN (9-20) mg/dL Creatinine (0.66-1.25) mg/dL Glucose (74-99) mg/dL Troponin I 0.058 H* 0.073 H* 0.060 H* (0.000-0.034) ng/mL Urine Protein (Negative) Urine Blood (Negative) Ur Leukocyte Esterase (Negative) Urine RBC (0-5) /hpf Urine WBC (0-5) /hpf Urine WBC Clumps (None) /hpf Urine Bacteria (None) /hpf Diabetes panel 09/29/21 Range/Units 21:37 Sodium 139 (137-145) mmol/L Potassium 4.6 (3.5-5.1) mmol/L Chloride 105 (98-107) mmol/L Carbon Dioxide 26 (22-30) mmol/L BUN 34 H (9-20) mg/dL Creatinine 1.55 H (0.66-1.25) mg/dL Glucose 153 H (74-99) mg/dL Calcium 8.8 (8.4-10.2) mg/dL AST 20 (17-59) U/L ALT 13 (4-49) U/L Alkaline Phosphatase 65 (38-126) U/L Total Protein 6.7 (6.3-8.2) g/dL Albumin 4.2 (3.5-5.0) g/dL Thyroid panel 09/29/21 Range/Units 21:37 TSH 1.450 (0.465-4.680) mIU/L Calcium panel 09/29/21 Range/Units 21:37 Calcium 8.8 (8.4-10.2) mg/dL Phosphorus 2.6 (2.5-4.5) mg/dL Albumin 4.2 (3.5-5.0) g/dL Pituitary panel 09/29/21 Range/Units 21:37 Sodium 139 (137-145) mmol/L Potassium 4.6 (3.5-5.1) mmol/L Chloride 105 (98-107) mmol/L Carbon Dioxide 26 (22-30) mmol/L BUN 34 H (9-20) mg/dL Creatinine 1.55 H (0.66-1.25) mg/dL Glucose 153 H (74-99) mg/dL Calcium 8.8 (8.4-10.2) mg/dL TSH 1.450 (0.465-4.680) mIU/L Adrenal panel 09/29/21 Range/Units 21:37 Sodium 139 (137-145) mmol/L Potassium 4.6 (3.5-5.1) mmol/L Chloride 105 (98-107) mmol/L Carbon Dioxide 26 (22-30) mmol/L BUN 34 H (9-20) mg/dL Creatinine 1.55 H (0.66-1.25) mg/dL Glucose 153 H (74-99) mg/dL Calcium 8.8 (8.4-10.2) mg/dL Total Bilirubin 0.6 (0.2-1.3) mg/dL AST 20 (17-59) U/L ALT 13 (4-49) U/L Alkaline Phosphatase 65 (38-126) U/L Total Protein 6.7 (6.3-8.2) g/dL Albumin 4.2 (3.5-5.0) g/dL Assessment and Plan Assessment: Impression: uti. incomplete bladder emptying Plan: increse cic to qid. await urine cultures. We will follow
[2021-10-01] MEDS: SENNOSIDES-DOCUSATE SODIUM 1 EACH TAB PO SCH ×2 (09:07→22:02)
[2021-10-01] MEDS: SODIUM CHLORIDE 0.9% 1,000 ML IV SCH (10:41)
[2021-10-01 11:01] LABS: Basophils % (A) 0 %; Eosinophils # (A) 0.1 k/uL (0-0.7); Eosinophils % (A) 1 %; HCT 35.5 % (39.0-53.0); HGB 11.4 gm/dL (13.0-17.5); Lymphocytes # (A) 0.4 k/uL (1.0-4.8); Lymphocytes % (A) 4 %; MCH 28.5 pg (25.0-35.0); MCV 89.1 fL (80.0-100.0); Mean Platelet Volume 7.9; Monocytes # (A) 0.9 k/uL (0-1.0); Monocytes % (A) 9 %; Neutrophils # (A) 8.6 k/uL (1.3-7.7); Neutrophils % (A) 85 %; Platelet Count 141 k/uL (150-450); RBC 3.98 m/uL (4.30-5.90); RDW 13.6 % (11.5-15.5); WBC 10.2 k/uL (3.8-10.6)
[2021-10-01 11:09] LABS: Calcium 7.9 mg/dL (8.4-10.2); Magnesium 1.8 mg/dL (1.6-2.3); Phosphorus 2.4 mg/dL (2.5-4.5)
[2021-10-01 11:27] LABS: INR 2.5 (<1.2); Prothrombin Time 24.8 sec (9.0-12.0)
--- NOTE | 2021-10-01 13:38 | P.PN ---
Subjective Progress Note Date: 10/01/21 This is a pleasant 81-year-old male who presented to the emergency department with fevers, increasing weakness, inability to walk with possible features of sepsis secondary to UTI. Patient does have a past medical history of atrial fibrillation maintained on Coumadin along with prostate cancer, CVA, TIA, hyperlipidemia, hypertension, osteoarthritis, thyroid disorder, and pacemaker. Patient follows with Dr. Jeison Reyes in the outpatient setting. Patient has reportedly been feeling more weak over the last few days to weeks and found himself unable to get up and stand or walk and this is a major concern of his. Patient reports over the last one year he has been hospitalized more frequently and feels his overall health is declining. Patient does follow with Dr. Nation cardiology in the outpatient setting and is maintained on Coumadin for atrial fibrillation and will have pharmacy to dose and get an INR. Chest x-ray on admission shows no acute process an EKG shows electronic ventricular pacemaker with a ventricular rate of 68. Labs on admission show a white blood count of 12.5, hemoglobin is 13.6, platelets are 165, sodium 139, potassium 4.6, BUN 34, creatinine 1.55, lactic acid was 1.3, magnesium 2.0, troponin 0.058 and repeat was 0.060, urinalysis revealed large blood and large leukocyte esterase and urine culture was sent and pending at this time. COVID-19 along with influenza are both negative. Patient was given a dose of ceftriaxone in the ER and have consulted infectious disease and we'll continue with ceftriaxone and await for cultures. Appropriate home medications have been resumed and patient is maintained on Coumadin and will obtain an INR and have pharmacy to dose. Will have physical therapy evaluate the patient. 10/01/2021 Patient seen in evaluation, he is being treated for UTI sitting antimicrobial therapy with Rocephin, urine culture is growing enterococcus. Mendenhall catheter is in place, good urine output. He is currently afebrile and hemodynamically stable. White count is trending down. He is continued on home dose of Coumadin, being dosed by pharmacy, INR therapeutic 2.5 monitor PT 4/INR. Patient appears to be feeling a bit better today, he is asking to get up and walk around in the hallway. REVIEW OF SYSTEMS: CONSTITUTIONAL: No fever, no malaise, no fatigue. CARDIOVASCULAR: No chest pain, orthopnea, PND, no palpitations, no syncope. PULMONARY: No shortness of breath, no cough, no hemoptysis. GASTROINTESTINAL: No diarrhea, no nausea, no vomiting, no abdominal pain. GENITOURINARY: Denies any burning micturition, frequency, or urgency. Mendenhall catheter PHYSICAL EXAMINATION: GENERAL: The patient is alert and oriented x4, Well developed, well nourished. Currently febrile HEENT: Pupils are round and equally reacting to light. EOMI. no scleral icterus. No conjunctival pallor. Normocephalic, atraumatic. No pharyngeal erythema. No thyromegaly. CARDIOVASCULAR: S1 and S2 muffled PULMONARY: diminished breath sounds bilaterally with no wheezing or rhonchi noted. ABDOMEN: soft. Nontender on exam. Minimally, normoactive bowel sounds. No palpable organomegaly. MUSCULOSKELETAL: No joint swelling or deformity. EXTREMITIES: No cyanosis, clubbing, or pedal edema. NEUROLOGICAL: Gross neurological examination did not reveal any focal deficits. Diffuse weakness SKIN: No rashes. Assessment: Acute urinary tract infection with sepsis, present on admission Fevers secondary to above Weakness and gait dysfunction possibly elevated troponin due to sepsis and settings renal failure, no evidence of ACS Pacemaker, maintained on Coumadin Ischemic cardiomyopathy, most recent EF was 45-50% History of prostate cancer and straight caths twice daily in the outpatient setting History of hypertension History of multiple sclerosis Hyperlipidemia History of CVA/TIA GI prophylaxis DVT prophylaxis Full code Plan: Continues antimicrobial therapy with Rocephin follow up final urine culture which is growing enterococcus, ID is following. Fluids are hep-locked, creatinine is trending down continue to monitor renal function and electrolytes Continue on Coumadin dosed per pharmacy, INR therapeutic 2.5, monitor PT/INR. Mendenhall catheter in place, good urine output, straight catheterizes at home Seen by cardiology for elevated troponins, no evidence of ACS Stool softenrs/ bowel regimen PT/OT evaluations, activity as tolerated The impression and plan of care has been dictated by Jeison Santos nurse practitioner as directed. Dr. Ck MD I have performed a history and examination and MDM of this patient, discussed the same with the dictator, and agree with the dictator's assessment and plan as written ,documented as a scribe. Based on total visit time, I have performed more than 50% of the visit. Any additional findings or plans will be noted. Objective - Vital Signs Vital signs: Vital Signs Temp 97.4 F L 10/01/21 12:50 Pulse 64 10/01/21 12:50 Resp 16 10/01/21 12:50 BP 120/61 10/01/21 12:50 Pulse Ox 95 10/01/21 12:50 FiO2 Intake & Output 09/30/21 10/01/21 10/01/21 18:59 06:59 18:59 Intake Total 360 Output Total 800 1150 Balance -800 -1150 360 Intake: Oral 360 Output: Urine 800 1150 Other: Voiding Method Indwelling Catheter Indwelling Catheter Indwelling Catheter # Bowel Movements 1 - Labs CBC & Chem 7: 10/01/21 10:06 10/01/21 10:06 Labs: Abnormal Lab Results - Last 24 Hours (Table) 09/30/21 10/01/21 10/01/21 Range/Units 14:25 10:06 10:06 RBC 3.98 L (4.30-5.90) m/uL Hgb 11.4 L (13.0-17.5) gm/dL Hct 35.5 L (39.0-53.0) % Plt Count 141 L (150-450) k/uL Neutrophils # 8.6 H (1.3-7.7) k/uL Lymphocytes # 0.4 L (1.0-4.8) k/uL PT 24.9 H (9.0-12.0) sec INR 2.5 H (<1.2) BUN 22 H (9-20) mg/dL Creatinine 1.37 H (0.66-1.25) mg/dL Glucose 164 H (74-99) mg/dL Calcium 7.9 L (8.4-10.2) mg/dL Phosphorus 2.4 L (2.5-4.5) mg/dL 10/01/21 Range/Units 10:06 RBC (4.30-5.90) m/uL Hgb (13.0-17.5) gm/dL Hct (39.0-53.0) % Plt Count (150-450) k/uL Neutrophils # (1.3-7.7) k/uL Lymphocytes # (1.0-4.8) k/uL PT 24.8 H (9.0-12.0) sec INR 2.5 H (<1.2) BUN (9-20) mg/dL Creatinine (0.66-1.25) mg/dL Glucose (74-99) mg/dL Calcium (8.4-10.2) mg/dL Phosphorus (2.5-4.5) mg/dL Microbiology - Last 24 Hours (Table) 09/29/21 21:37 Urine Culture - Preliminary Urine,Voided Group D Enterococcus
[2021-10-01] MEDS ORDERED: WARFARIN 1.25 MG TAB PO SCH (18:00)
[2021-10-01] MEDS: ATORVASTATIN 20 MG TAB PO SCH (18:23)
[2021-10-01] MEDS: WARFARIN 2.5 MG TAB PO SCH (18:23)
[2021-10-01] MEDS: lisinopriL 20 MG TAB PO SCH (18:23)
--- NOTE | 2021-10-01 20:31 | P.PN ---
Subjective Progress Note Date: 10/01/21 Principal diagnosis: Urinary tract infection Patient is a 81-year-old male with a past medical history significant for urinary outflow obstruction needing self-catheterization presented to the hospital with weakness and has been diagnosed with a urinary tract infection. On today's evaluation that is 10/01/2021, the patient denies having any fever or chills, the patient denies having any chest pain shortness of breath or cough no nausea no vomiting no abdominal pain or diarrhea, still complaining of weakness Objective - Vital Signs Vital signs: Vital Signs Temp 98.2 F 10/01/21 09:00 Pulse 66 10/01/21 09:05 Resp 16 10/01/21 09:05 BP 101/54 10/01/21 09:00 Pulse Ox 94 L 10/01/21 09:00 FiO2 Intake & Output 09/30/21 10/01/21 10/01/21 18:59 06:59 18:59 Intake Total 360 Output Total 800 1150 Balance -800 -1150 360 Intake: Oral 360 Output: Urine 800 1150 Other: Voiding Method Indwelling Catheter Indwelling Catheter Indwelling Catheter # Bowel Movements 1 - Exam GENERAL DESCRIPTION: An elderly male lying in bed in no distress RESPIRATORY SYSTEM: Unlabored breathing , decreased breath sounds at bases HEART: S1 S2 regular rate and rhythm , ABDOMEN: Soft , no tenderness EXTREMITIES: No edema feet - Labs CBC & Chem 7: 10/01/21 10:06 10/01/21 10:06 Labs: Abnormal Lab Results - Last 24 Hours (Table) 09/30/21 10/01/21 10/01/21 Range/Units 14:25 10:06 10:06 RBC 3.98 L (4.30-5.90) m/uL Hgb 11.4 L (13.0-17.5) gm/dL Hct 35.5 L (39.0-53.0) % Plt Count 141 L (150-450) k/uL Neutrophils # 8.6 H (1.3-7.7) k/uL Lymphocytes # 0.4 L (1.0-4.8) k/uL PT 24.9 H (9.0-12.0) sec INR 2.5 H (<1.2) BUN 22 H (9-20) mg/dL Creatinine 1.37 H (0.66-1.25) mg/dL Glucose 164 H (74-99) mg/dL Calcium 7.9 L (8.4-10.2) mg/dL Phosphorus 2.4 L (2.5-4.5) mg/dL 10/01/21 Range/Units 10:06 RBC (4.30-5.90) m/uL Hgb (13.0-17.5) gm/dL Hct (39.0-53.0) % Plt Count (150-450) k/uL Neutrophils # (1.3-7.7) k/uL Lymphocytes # (1.0-4.8) k/uL PT 24.8 H (9.0-12.0) sec INR 2.5 H (<1.2) BUN (9-20) mg/dL Creatinine (0.66-1.25) mg/dL Glucose (74-99) mg/dL Calcium (8.4-10.2) mg/dL Phosphorus (2.5-4.5) mg/dL Microbiology - Last 24 Hours (Table) 09/29/21 21:37 Urine Culture - Preliminary Urine,Voided Assessment and Plan (1) UTI (urinary tract infection) Current Visit: Yes Status: Acute Code(s): N39.0 - URINARY TRACT INFECTION, SITE NOT SPECIFIED SNOMED Code(s): 28423816 Plan: 1patient presented hospital with fever weakness in this patient who do have a risk factor of self-catheterization for urinary outflow obstruction did have a positive UA likely component of symptomatic urinary tract infection likely from enteric gram-negative pathogen. 2urinary showing group D enterococcus. We'll discontinue Rocephin and start the patient on Unasyn while waiting for the cultures to finalize Time with Patient: Less than 30
[2021-10-01] MEDS: ISOSORBIDE MONONITRATE ER 60 MG TAB.ER.24H PO SCH (22:02)
[2021-10-01] MEDS: DIGOXIN 125 MCG TAB PO SCH (22:02)
[2021-10-01] MEDS: AMPICILLIN-SULBACTAM 3 GM in SODIUM CHLORIDE 0.9% 100 ML IVPB SCH (23:36)
[2021-10-02] MEDS: TAMSULOSIN 0.4 MG CAP.ER.24H PO SCH ×2 (06:26→17:09)
[2021-10-02] MEDS: GABAPENTIN 300 MG CAP PO SCH ×3 (06:26→22:50)
[2021-10-02] MEDS: METOPROLOL TARTRATE 25 MG TAB PO SCH ×2 (06:26→17:09)
[2021-10-02] MEDS: ASPIRIN 81 MG PO SCH (06:26)
[2021-10-02] MEDS: BACLOFEN 10 MG TAB PO SCH ×3 (06:27→22:50)
[2021-10-02 08:26] LABS: INR 2.3 (<1.2); Prothrombin Time 22.8 sec (9.0-12.0)
[2021-10-02 08:31] LABS: Calcium 8.2 mg/dL (8.4-10.2); Potassium 4.3 mmol/L (3.5-5.1)
[2021-10-02] MEDS: SENNOSIDES-DOCUSATE SODIUM 1 EACH TAB PO SCH ×2 (09:48→19:59)
[2021-10-02] MEDS: AMPICILLIN-SULBACTAM 3 GM in SODIUM CHLORIDE 0.9% 100 ML IVPB SCH ×3 (09:48→22:51)
--- NOTE | 2021-10-02 10:09 | P.PN ---
Subjective Progress Note Date: 10/01/21 This is a pleasant 81-year-old male who presented to the emergency department with fevers, increasing weakness, inability to walk with possible features of sepsis secondary to UTI. Patient does have a past medical history of atrial fibrillation maintained on Coumadin along with prostate cancer, CVA, TIA, hyperlipidemia, hypertension, osteoarthritis, thyroid disorder, and pacemaker. Patient follows with Dr. Jeison Reyes in the outpatient setting. Patient has reportedly been feeling more weak over the last few days to weeks and found himself unable to get up and stand or walk and this is a major concern of his. Patient reports over the last one year he has been hospitalized more frequently and feels his overall health is declining. Patient does follow with Dr. Nation cardiology in the outpatient setting and is maintained on Coumadin for atrial fibrillation and will have pharmacy to dose and get an INR. Chest x-ray on admission shows no acute process an EKG shows electronic ventricular pacemaker with a ventricular rate of 68. Labs on admission show a white blood count of 12 .5, hemoglobin is 13.6, platelets are 165, sodium 139, potassium 4.6, BUN 34, creatinine 1.55, lactic acid was 1.3, magnesium 2.0, troponin 0.058 and repeat was 0.060, urinalysis revealed large blood and large leukocyte esterase and urine culture was sent and pending at this time. COVID-19 along with influenza are both negative. Patient was given a dose of ceftriaxone in the ER and have consulted infectious disease and we'll continue with ceftriaxone and await for cultures. Appropriate home medications have been resumed and patient is maintained on Coumadin and will obtain an INR and have pharmacy to dose. Will have physical therapy evaluate the patient. 10/01/2021 Patient seen in evaluation, he is being treated for UTI sitting antimicrobial therapy with Rocephin, urine culture is growing enterococcus. Mendenhall catheter is in place, good urine output. He is currently afebrile and hemodynamically stable. White count is trending down. He is continued on home dose of Coumadin, being dosed by pharmacy, INR therapeutic 2.5 monitor PT 4/INR. Patient appears to be feeling a bit better today, he is asking to get up and walk around in the hallway. 10/02/2021 Patient's urine cultures are positive for enterococcus patient was switched to Unasyn Finalization of cultures are pending physical therapy and occupational therapy evaluation pending. Patient most probably will be discharged tomorrow. REVIEW OF SYSTEMS: CONSTITUTIONAL: No fever, no malaise, no fatigue. CARDIOVASCULAR: No chest pain, orthopnea, PND, no palpitations, no syncope. PULMONARY: No shortness of breath, no cough, no hemoptysis. GASTROINTESTINAL: No diarrhea, no nausea, no vomiting, no abdominal pain. GENITOURINARY: Denies any burning micturition, frequency, or urgency. Mendenhall catheter PHYSICAL EXAMINATION: GENERAL: The patient is alert and oriented x4, Well developed, well nourished. Currently febrile HEENT: Pupils are round and equally reacting to light. EOMI. no scleral icterus. No conjunctival pallor. Normocephalic, atraumatic. No pharyngeal erythema. No thyromegaly. CARDIOVASCULAR: S1 and S2 muffled PULMONARY: diminished breath sounds bilaterally with no wheezing or rhonchi noted. ABDOMEN: soft. Nontender on exam. Minimally, normoactive bowel sounds. No palpable organomegaly. MUSCULOSKELETAL: No joint swelling or deformity. EXTREMITIES: No cyanosis, clubbing, or pedal edema. NEUROLOGICAL: Gross neurological examination did not reveal any focal deficits. Diffuse weakness SKIN: No rashes. 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 Subcutaneous heparin DVT prophylaxis Full code Objective - Vital Signs Vital signs: Vital Signs Temp 97.8 F 10/02/21 03:32 Pulse 52 L 10/02/21 03:32 Resp 12 10/02/21 03:32 BP 146/74 10/02/21 03:32 Pulse Ox 94 L 10/02/21 03:32 FiO2 Intake & Output 10/01/21 10/02/21 10/02/21 18:59 06:59 18:59 Intake Total 600 118 Output Total 550 1650 Balance 50 -1650 118 Intake: Oral 600 118 Output: Urine 550 1650 Other: Voiding Method Indwelling Catheter Indwelling Catheter - Labs CBC & Chem 7: 10/01/21 10:06 10/02/21 07:57 Labs: Abnormal Lab Results - Last 24 Hours (Table) 10/01/21 10/01/21 10/01/21 Range/Units 10:06 10:06 10:06 RBC 3.98 L (4.30-5.90) m/uL Hgb 11.4 L (13.0-17.5) gm/dL Hct 35.5 L (39.0-53.0) % Plt Count 141 L (150-450) k/uL Neutrophils # 8.6 H (1.3-7.7) k/uL Lymphocytes # 0.4 L (1.0-4.8) k/uL PT 24.8 H (9.0-12.0) sec INR 2.5 H (<1.2) BUN 22 H (9-20) mg/dL Creatinine 1.37 H (0.66-1.25) mg/dL Glucose 164 H (74-99) mg/dL Calcium 7.9 L (8.4-10.2) mg/dL Phosphorus 2.4 L (2.5-4.5) mg/dL 10/02/21 10/02/21 Range/Units 07:57 07:57 RBC (4.30-5.90) m/uL Hgb (13.0-17.5) gm/dL Hct (39.0-53.0) % Plt Count (150-450) k/uL Neutrophils # (1.3-7.7) k/uL Lymphocytes # (1.0-4.8) k/uL PT 22.8 H (9.0-12.0) sec INR 2.3 H (<1.2) BUN 21 H (9-20) mg/dL Creatinine 1.42 H (0.66-1.25) mg/dL Glucose 101 H (74-99) mg/dL Calcium 8.2 L (8.4-10.2) mg/dL Phosphorus (2.5-4.5) mg/dL Microbiology - Last 24 Hours (Table) 09/29/21 21:37 Urine Culture - Preliminary Urine,Voided Group D Enterococcus
--- NOTE | 2021-10-02 12:32 | P.PN ---
Subjective Progress Note Date: 10/02/21 The patient has had a urinary tract infection with sepsis. He is growing enterococcus. He's been instructed to increase his catheterization to 4 times a day. He should follow-up with as an outpatient. b Objective - Vital Signs Vital signs: Vital Signs Temp 98.3 F 10/02/21 09:30 Pulse 58 L 10/02/21 09:30 Resp 18 10/02/21 09:30 BP 108/45 10/02/21 09:30 Pulse Ox 94 L 10/02/21 09:30 FiO2 Intake & Output 10/01/21 10/02/21 10/02/21 18:59 06:59 18:59 Intake Total 600 118 Output Total 550 1650 Balance 50 -1650 118 Intake: Oral 600 118 Output: Urine 550 1650 Other: Voiding Method Indwelling Catheter Indwelling Catheter Indwelling Catheter - Labs CBC & Chem 7: 10/01/21 10:06 10/02/21 07:57 Labs: Abnormal Lab Results - Last 24 Hours (Table) 10/02/21 10/02/21 Range/Units 07:57 07:57 PT 22.8 H (9.0-12.0) sec INR 2.3 H (<1.2) BUN 21 H (9-20) mg/dL Creatinine 1.42 H (0.66-1.25) mg/dL Glucose 101 H (74-99) mg/dL Calcium 8.2 L (8.4-10.2) mg/dL Microbiology - Last 24 Hours (Table) 09/29/21 21:37 Urine Culture - Preliminary Urine,Voided Group D Enterococcus
[2021-10-02] MEDS: lisinopriL 20 MG TAB PO SCH (17:09)
[2021-10-02] MEDS: ATORVASTATIN 20 MG TAB PO SCH (17:10)
[2021-10-02] MEDS: WARFARIN 2.5 MG TAB PO SCH (17:10)
[2021-10-02] MEDS: DIGOXIN 125 MCG TAB PO SCH (22:50)
[2021-10-02] MEDS: ISOSORBIDE MONONITRATE ER 60 MG TAB.ER.24H PO SCH (22:50)
[2021-10-03] MEDS: GABAPENTIN 300 MG CAP PO SCH ×2 (06:27→16:15)
[2021-10-03] MEDS: ASPIRIN 81 MG PO SCH (06:27)
[2021-10-03] MEDS: TAMSULOSIN 0.4 MG CAP.ER.24H PO SCH (06:27)
[2021-10-03] MEDS: METOPROLOL TARTRATE 25 MG TAB PO SCH (06:27)
[2021-10-03] MEDS: BACLOFEN 10 MG TAB PO SCH ×2 (06:27→16:15)
[2021-10-03 08:00] LABS: INR 2.4 (<1.2)
[2021-10-03] MEDS: SENNOSIDES-DOCUSATE SODIUM 1 EACH TAB PO SCH (09:25)
[2021-10-03] MEDS: AMPICILLIN-SULBACTAM 3 GM in SODIUM CHLORIDE 0.9% 100 ML IVPB SCH (09:25)
--- NOTE | 2021-10-03 09:25 | CDI ---
Documentation Clarification Form Date: 10/03/2021 09:09:25 AM From: Elke Tapia CCS, CCDS Admit Date: 09/30/2021 12:49:00 AM Patient Name: Semaj Peralta Visit Number: [id number] Discharge Date: ATTENTION: The Clinical Documentation Specialists (CDI) and [facility] Coding Staff appreciate your assistance in clarifying documentation. Please respond to the clarification below the line at the bottom and electronically sign. The CDI & [facility] Coding staff will review the response and follow-up if needed. Please note: Queries are made part of the Legal Health Record. If you have any questions, please contact the author of this message via ITS. Dr. Adriane Stover: Per the 10/02 Attending Progress Note: UTI with Sepsis, POA, Enterococcus in the urine cultures on Unasyn. Chronic urinary retention secondary to Multiple Sclerosis for which the patient self catheterizes at home. Per the 10/02 Urology Progress Note: Patient has a UTI with Sepsis. Growing Enterococcus. Instructed to increase his catheterization to 4 times a day. Additional clarification regarding the etiology of the UTI is requested. History/Risk Factors per the 09/30 H/P: Prostate Cancer, CVA/TIA, Hyperlipidemia, Hypertension, Osteoarthritis, Thyroid Disorder and has a Pacemaker, on Coumadin for Atrial Fibrillation, Ischemic Cardiomyopathy, Multiple Sclerosis. Clinical Indicators: Presented to the ED on 09/29 with weakness and fever. History of previous UTIs with similar symptoms. Known history of Urinary Retention and self caths twice a day and history of Multiple Sclerosis with progressive weakness in lower extremities. Admit with UTI, Generalized weakness, STEMI, Atrial fibrillation, Fever and Weakness. 09/29 Urinalysis: Cloudy, 1+ Protein, Large Blood, Large Esterase, RBC 133, WBC >182. 09/29 Urine culture: Enterococcus faecalis Treatment 09/30: Telemetry, IV Na Chl 1,000 mls @ 999 mls/hr q1H x2, IV Morphine 4 mg q4H, IV Rocephin 50 mls @ 100 mls/hr x1, IV Na Chl 1,000 mls @ 75 mls/hr q13H. 10/02: Antibiotics changed to IV Ampicillin 100 mls @ 100 mls/hr q8H. Please clarify the etiology of the UTI, if known: [ x ] UTI related to Self Catheterization [ ] UTI not related to Self Catheterization [ ] Other condition, please specify [ ] Unable to determine (Template Last Revised: June 2020) MTDD
[2021-10-03 09:28] VITALS: BP 106/60; PULSE 64; RESP 18; TEMP 98.2
[2021-10-03] MEDS ORDERED: WARFARIN 1.25 MG TAB PO SCH (18:00)
--- NOTE | 2021-10-04 09:08 | P.DS ---
Providers Date of admission: 09/30/21 00:49 Expected date of discharge: 10/03/21 Attending physician: Rip Martinez Consults: 09/30/21 00:49 Consult Physician Routine Consulting Provider: Maureen Mac Consult Reason/Comments: elevTrop Do you want consulting provider notified?: Yes 09/30/21 09:51 Consult Physician Urgent Consulting Provider: Kacie Whitmore Consult Reason/Comments: UTI/sepsis Do you want consulting provider notified?: Yes Primary care physician: Jeison Reyes Hospital Course: Final diagnosis urinary tract infection with sepsis, present on admission secondary to self catheterizations, enterococcus faecalis in the urine cultures elevated troponin due to sepsis and settings renal failure, no evidence of ACS Pacemaker, maintained on Coumadin therapeutic on Coumadin Ischemic cardiomyopathy, most recent EF was 45-50% History of prostate cancer and straight caths twice daily in the outpatient setting History of hypertension Chronic kidney disease the stage II to 3 etiology of chronic kidney disease is not known 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 Patient will follow-up with Dr. Reyes in the outpatient setting upon discharge. Patient is to continue with oral Augmentin twice daily. Total time taken is greater than 35 minutes. Hospital Course This is a 81-year-old male who was recently admitted weakness and possible sepsis with features of UTI and was being closely monitored. Patient being followed by infectious disease and urine culture finalized showing enterococcus and will continue on oral Augmentin twice daily for the next 10 days to complete the course. Patient does straight cath in the outpatient setting and has been doing twice daily and was evaluated by urology recommending 4 times daily and a prescription was provided for increase in supplies and patient also encouraged to follow-up with primary care provider and urology outpatient. Patient will have home care as patient was seen and evaluated by physical therapy doing well and does have a walker in the home. Currently no reports of chest pain, shortness of breath, or palpitations. Patient is afebrile. No reports of nausea or vomiting and patient is tolerating diet. Patient will be discharged home today. Physical exam: Gen: This is a 81-year-old male awake, alert and oriented 3, well-developed, well-nourished. HEENT: Head is atraumatic, normocephalic. Pupils equal, round. Sclerae is anicteric. NECK: Supple. No JVD. No lymphadenopathy. No thyromegaly. LUNGS: Clear to auscultation. No wheezes or rhonchi. No intercostal retractions. HEART: Regular rate and rhythm. No murmur. ABDOMEN: Soft. Bowel sounds are present. No masses. No tenderness. EXTREMITIES: No pedal edema. No calf tenderness. NEUROLOGICAL: Patient is awake, alert and oriented x3. Cranial nerves 2 through 12 are grossly intact. Please refer to medication reconciliation sheet for a list of medications. The impression and plan of care has been dictated by Vivian Childs, Nurse Practitioner as directed. Dr. Ck MD I have performed a history and examination and MDM of this patient, discussed the same with the dictator, and agree with the dictator's assessment and plan as written ,documented as a scribe. Based on total visit time, I have performed more than 50% of the visit. Patient Condition at Discharge: Fair Plan - Discharge Summary Discharge Rx Participant: No New Discharge Prescriptions: New Sennosides-Docusate Sodium [Senokot-S] 1 each PO BID 30 Days #60 tab Acetaminophen Tab [Tylenol] 650 mg PO Q6HR PRN tab PRN Reason: Mild Pain Or Fever > 100.5 Amoxic-Pot Clav 875-125Mg [Augmentin 875-125] 1 tab PO Q12HR 10 Days #20 tab Continue Ramipril [Altace] 10 mg PO DAILY@1830 Isosorbide Mononitrate [Imdur] 60 mg PO HS@2300 Baclofen [Lioresal] 10 mg PO TID@0700,1500,2300 Warfarin [Coumadin] 2.5 mg PO SA@1830 Aspirin 81 mg PO DAILY@0700 Digoxin [Lanoxin] 125 mcg PO HS@2300 Simvastatin [Zocor] 40 mg PO HS@1830 Warfarin [Coumadin] 1.25 mg PO SUMOTUWETHFR@1830 Tamsulosin [Flomax] 0.4 mg PO BID@0700,1830 Metoprolol Tartrate [Lopressor] 75 mg PO BID@0700,1830 Gabapentin [Neurontin] 300 mg PO TID@0700,1500,2300 Discharge Medication List Aspirin 81 mg PO DAILY@0709/02/13 [History] Baclofen [Lioresal] 10 mg PO TID@0700,1500,2300 09/02/13 [History] Digoxin [Lanoxin] 125 mcg PO HS@229909/02/13 [History] Isosorbide Mononitrate [Imdur] 60 mg PO HS@229909/02/13 [History] Ramipril [Altace] 10 mg PO DAILY@182909/02/13 [History] Simvastatin [Zocor] 40 mg PO HS@182909/02/13 [History] Warfarin [Coumadin] 2.5 mg PO SA@182909/02/13 [History] Warfarin [Coumadin] 1.25 mg PO SUMOTUWETHFR@182903/06/18 [History] Tamsulosin [Flomax] 0.4 mg PO BID@0700,182909/03/19 [History] Gabapentin [Neurontin] 300 mg PO TID@0700,1500,2300 04/20/20 [History] Metoprolol Tartrate [Lopressor] 75 mg PO BID@0700,182904/20/20 [History] Acetaminophen Tab [Tylenol] 650 mg PO Q6HR PRN tab 10/03/21 [Rx] Amoxic-Pot Clav 875-125Mg [Augmentin 875-125] 1 tab PO Q12HR 10 Days #20 tab 10/03/21 [Rx] Sennosides-Docusate Sodium [Senokot-S] 1 each PO BID 30 Days #60 tab 10/03/21 [Rx] Follow up Appointment(s)/Referral(s): Jeison Reyes MD [Primary Care Provider] - 1-2 days Eduar Nation MD [STAFF PHYSICIAN] - 1 Week Jonas Padilla MD [STAFF PHYSICIAN] - 2 Weeks [facility], [NON-STAFF] - Patient Instructions/Handouts: Urinary Tract Infection in Men (DC) Activity/Diet/Wound Care/Special Instructions: Activity Limited until follow-up Follow-up with primary care provider on discharge Follow-up urology outpatient Continue antibiotics until finished Urology recommend straight cathing 4 times daily Discharge Disposition: HOME WITH HOME HEALTH SERVICES
== END 2021-10-03 16:38 | disposition home health service (06) | DRG 698 ==
LOC: EC 18:47 → 3SCARD 09-30 00:49
PROVIDERS: ADMIT Hospitalist; ATTEND Hospitalist
DX: T83.518A Infection and inflammatory reaction due to other urinary catheter, initial encounter (principal); A41.81 Sepsis due to Enterococcus; N39.0 Urinary tract infection, site not specified; I48.21 Permanent atrial fibrillation; E07.9 Disorder of thyroid, unspecified; E86.0 Dehydration; G35 Multiple sclerosis; Z20.822 Contact with and (suspected) exposure to COVID-19; Z28.310 Unvaccinated for COVID-19; I12.9 Hypertensive chronic kidney disease with stage 1 through stage 4 chronic kidney disease, or unspecified chronic kidney disease; N18.2 Chronic kidney disease, stage 2 (mild); I25.5 Ischemic cardiomyopathy; N42.9 Disorder of prostate, unspecified; K59.00 Constipation, unspecified; N13.9 Obstructive and reflux uropathy, unspecified; R33.8 Other retention of urine; I25.10 Atherosclerotic heart disease of native coronary artery without angina pectoris; E78.5 Hyperlipidemia, unspecified; R77.8 Other specified abnormalities of plasma proteins; I25.2 Old myocardial infarction; M19.90 Unspecified osteoarthritis, unspecified site; Z79.82 Long term (current) use of aspirin; Z79.01 Long term (current) use of anticoagulants; Z79.899 Other long term (current) drug therapy; Z87.440 Personal history of urinary (tract) infections; Z87.891 Personal history of nicotine dependence; Z86.73 Personal history of transient ischemic attack (TIA), and cerebral infarction without residual deficits; Z85.46 Personal history of malignant neoplasm of prostate; Z92.3 Personal history of irradiation; Z95.0 Presence of cardiac pacemaker; Z87.19 Personal history of other diseases of the digestive system; Z87.39 Personal history of other diseases of the musculoskeletal system and connective tissue; Z86.79 Personal history of other diseases of the circulatory system; Z98.890 Other specified postprocedural states; Z80.8 Family history of malignant neoplasm of other organs or systems
CPT/HCPCS: 36415; 71046; 80048; 80053; 81001; 83605; 83735; 83880; 84100; 84153; 84443; 84484; 85025; 85610; 87077; 87086; 87186; 87502; 87635; 93005; 96361; 96374; 99285

== ENCOUNTER 2022-01-13 22:51 | Inpatient (IN) | payer MEDICARE ==
[2022-01-14 00:17] LABS: Basophils % (A) 0 %; Eosinophils # (A) 0.2 k/uL (0-0.7); Eosinophils % (A) 2 %; HCT 42.6 % (39.0-53.0); HGB 13.5 gm/dL (13.0-17.5); Lymphocytes # (A) 0.6 k/uL (1.0-4.8); Lymphocytes % (A) 5 %; MCH 28.8 pg (25.0-35.0); MCHC 31.8 g/dL (31.0-37.0); MCV 90.6 fL (80.0-100.0); Mean Platelet Volume 8.5; Monocytes # (A) 1.2 k/uL (0-1.0); Monocytes % (A) 11 %; Neutrophils % (A) 81 %; Platelet Count 137 k/uL (150-450); RDW 13.6 % (11.5-15.5); WBC 11.2 k/uL (3.8-10.6)
[2022-01-14 00:25] LABS: Partial Thromboplastin Time 31.1 sec (22.0-30.0); Prothrombin Time 20.1 sec (9.0-12.0)
--- NOTE | 2022-01-14 00:25 | XR ---
EXAMINATION TYPE: XR chest 2V DATE OF EXAM: 01/14/2022 COMPARISON: 09/29/2021 HISTORY: Weakness TECHNIQUE: 3 view FINDINGS: Heart is enlarged. No heart failure seen. No pleural effusion. There is left axillary pacem hortencia. There are no hilar masses. IMPRESSION: Cardiomegaly. No active cardiopulmonary disease. No change.
[2022-01-14 00:30] LABS: Albumin 4.4 g/dL (3.5-5.0); Calcium 8.3 mg/dL (8.4-10.2); Magnesium 1.9 mg/dL (1.6-2.3); Potassium 4.6 mmol/L (3.5-5.1); Total Bilirubin 0.7 mg/dL (0.2-1.3); Total Protein 6.6 g/dL (6.3-8.2)
[2022-01-14 00:56] LABS: Appearance,Urine Cloudy (Clear); Bilirubin,Urine Negative (Negative); Blood,Urine Small (Negative); Color,Urine Light Yellow; Glucose,Urine (UA) Negative (Negative); Ketones,Urine Negative (Negative); Leukocyte Esterase,Urine Large (Negative); Mucus,Urine Rare /hpf; Nitrite,Urine Positive (Negative); PH, Urine 7.5 (5.0-8.0); Protein,Urine 1+ (Negative); RBC,Urine 18 /hpf (0-5); Specific Gravity,Urine 1.013 (1.001-1.035); Squamous Epithelial Cell,Urine 1 /hpf (0-4); Urobilinogen,Urine <2.0 mg/dL (<2.0); WBC,Urine >182 /hpf (0-5)
[2022-01-14] MEDS ORDERED: ACETAMINOPHEN TAB 325 MG TAB PO PRN (01:45)
[2022-01-14] MEDS ORDERED: MAG HYDROX/AL HYDROX/SIMETH 30 ML CUP PO PRN (01:45)
[2022-01-14] MEDS ORDERED: NALOXONE 0.4 MG/ML 1 ML VIAL IV PRN (01:45)
--- NOTE | 2022-01-14 01:52 | ED ---
Weakness HPI - General Chief complaint: Weakness Stated complaint: Weakness, UTI Time Seen by Provider: 01/13/22 23:19 Source: patient Mode of arrival: ambulatory Limitations: no limitations - History of Present Illness Initial comments: Patient is 81-year-old man who presents with complaint that he feels as if he is having a recurrence of urinary tract infection. The patient states that over approximately the past 2 days he has had worsening of generalized weakness and fatigue. Tonight he was not even able to get out of his chair to get up and go to bed. Patient states the last time he felt like this she was found to have urinary tract infection. Patient has not noted fevers but states she has felt cold at times. No congestion or cough. No chest pain or dyspnea. No vomiting or diarrhea. Patient states she has had some low abdominal discomfort but not calling christina pain. MD Complaint: generalized weakness, lack of energy, difficulty walking Onset/Timin -: days(s) Location: other Severity: mild Quality: dull Consistency: constant Improves with: none Worsens with: none Associated Symptoms: loss of appetite - Related Data Home Medications Medication Instructions Recorded Confirmed Aspirin 81 mg PO DAILY@69909/02/13 01/14/22 Baclofen [Lioresal] 10 mg PO TID@0700,1500,229909/02/13 01/14/22 Digoxin [Lanoxin] 125 mcg PO HS@229909/02/13 01/14/22 Isosorbide Mononitrate [Imdur] 60 mg PO HS@229909/02/13 01/14/22 Simvastatin [Zocor] 40 mg PO HS@182909/02/13 01/14/22 Warfarin [Coumadin] 2.5 mg PO SA@182909/02/13 01/14/22 ramipriL [Altace] 10 mg PO DAILY@182909/02/13 01/14/22 Warfarin [Coumadin] 1.25 mg PO SUMOTUWETHFR@182903/06/18 01/14/22 Tamsulosin [Flomax] 0.4 mg PO BID@0700,18309/03/19 01/14/22 Gabapentin [Neurontin] 300 mg PO TID@0700,1500,2300 04/20/20 01/14/22 Metoprolol Tartrate [Lopressor] 75 mg PO BID@0700,1830 04/20/20 01/14/22 Methenamine Hippurate 1 gm PO BID@0700,1830 01/14/22 01/14/22 Allergies Allergy/AdvReac Type Severity Reaction Status Date / Time No Known Allergies Allergy Verified 01/14/22 11:20 Review of Systems ROS Statement: Those systems with pertinent positive or pertinent negative responses have been documented in the HPI. ROS Other: All systems not noted in ROS Statement are negative. Constitutional: Reports: chills. Denies: fever Respiratory: Denies: cough, dyspnea Cardiovascular: Denies: chest pain, palpitations Gastrointestinal: Reports: as per HPI, abdominal pain. Denies: nausea, vomiting, diarrhea, constipation Genitourinary: Denies: dysuria, frequency, hematuria, testicular pain, testicular mass Musculoskeletal: Denies: back pain Skin: Denies: rash Neurological: Denies: headache, weakness, numbness Past Medical History Past Medical History: Atrial Fibrillation, Cancer, CVA/TIA, Hyperlipidemia, Hypertension, Osteoarthritis (OA), Prostate Disorder, Thyroid Disorder Additional Past Medical History / Comment(s): MS, hx. prostate cancer 2014-had radiation. Generator change-01/14/2019 PACEMAKER ONLY, NO DEFIBRILLATOR Last Myocardial Infarction Date:: unk DATE History of Any Multi-Drug Resistant Organisms: None Reported Past Surgical History: Back Surgery, Heart Catheterization, Hernia Repair, Pacemaker Additional Past Surgical History / Comment(s): PACEMAKER, Generator change- 01/14/2019 Past Anesthesia/Blood Transfusion Reactions: No Reported Reaction Type of Cardiac Device: Permanent Pacemaker Device Placement Date:: 05/02/11 Past Psychological History: No Psychological Hx Reported Smoking Status: Never smoker Past Alcohol Use History: Occasional Past Drug Use History: None Reported - Past Family History Mother Family Medical History: No Reported History Sister(s) Family Medical History: Cancer Additional Family Medical History / Comment(s): melanoma General Exam Limitations: no limitations General appearance: alert, in no apparent distress Head exam: Present: atraumatic, normocephalic Eye exam: Present: normal appearance. Absent: scleral icterus, conjunctival injection Neck exam: Present: normal inspection Respiratory exam: Present: normal lung sounds bilaterally. Absent: respiratory distress, wheezes, rales, rhonchi, stridor Cardiovascular Exam: Present: regular rate, normal rhythm, systolic murmur. Absent: diastolic murmur, rubs, gallop GI/Abdominal exam: Present: soft. Absent: distended, tenderness, guarding, rebound, rigid, mass Extremities exam: Present: normal inspection, normal capillary refill. Absent: pedal edema, calf tenderness Back exam: Present: normal inspection. Absent: CVA tenderness (R), CVA tenderness (L) Neurological exam: Present: alert, oriented X3. Absent: motor sensory deficit Skin exam: Present: warm, dry, intact, normal color. Absent: rash Course Vital Signs 01/13/22 01/14/22 23:06 02:18 Temperature 100.7 F H 98.6 F Pulse Rate 71 63 Respiratory 18 18 Rate Blood Pressure 149/72 97/60 O2 Sat by Pulse 94 L 96 Oximetry Medical Decision Making - Lab Data Result diagrams: 01/16/22 05:53 01/16/22 05:53 Lab Results 01/13/22 01/13/22 01/13/22 Range/Units 23:52 23:52 23:52 WBC 11.2 H (3.8-10.6) k/uL RBC 4.70 (4.30-5.90) m/uL Hgb 13.5 (13.0-17.5) gm/dL Hct 42.6 (39.0-53.0) % MCV 90.6 (80.0-100.0) fL MCH 28.8 (25.0-35.0) pg MCHC 31.8 (31.0-37.0) g/dL RDW 13.6 (11.5-15.5) % Plt Count 137 L (150-450) k/uL MPV 8.5 Immature Gran % (Auto) % Absolute Nucleated RBC (0.00-0.00) X 10*3/uL Neutrophils % 81 % Lymphocytes % 5 % Monocytes % 11 % Eosinophils % 2 % Basophils % 0 % Immature Gran # (0.00-0.04) X 10*3/uL Neutrophils # 9.0 H (1.3-7.7) k/uL Lymphocytes # 0.6 L (1.0-4.8) k/uL Monocytes # 1.2 H (0-1.0) k/uL Eosinophils # 0.2 (0-0.7) k/uL Basophils # 0.0 (0-0.2) k/uL NRBC/100 WBC Diff (0.0-0.0) /100 WBCS PT 20.1 H (9.0-12.0) sec INR 2.0 H (<1.2) APTT 31.1 H (22.0-30.0) sec Sodium 137 (137-145) mmol/L Potassium 4.6 (3.5-5.1) mmol/L Chloride 100 (98-107) mmol/L Carbon Dioxide 23 (22-30) mmol/L Anion Gap 14 mmol/L BUN 31 H (9-20) mg/dL Creatinine 1.61 H (0.66-1.25) mg/dL Est GFR (CKD-EPI)AfAm 47 (>60 ml/min/1.73 sqM) Est GFR (CKD-EPI)NonAf 40 (>60 ml/min/1.73 sqM) BUN/Creatinine Ratio (12.00-20.00) Ratio Glucose 124 H (74-99) mg/dL Plasma Lactic Acid Justino (0.7-2.0) mmol/L Calcium 8.3 L (8.4-10.2) mg/dL Magnesium 1.9 (1.6-2.3) mg/dL Total Bilirubin 0.7 (0.2-1.3) mg/dL AST 22 (17-59) U/L ALT 13 (4-49) U/L Alkaline Phosphatase 61 (38-126) U/L Troponin I (0.000-0.034) ng/mL Total Protein 6.6 (6.3-8.2) g/dL Albumin 4.4 (3.5-5.0) g/dL Globulin (1.6-3.3) g/dL Albumin/Globulin Ratio (1.60-3.17) g/dL Urine Color Urine Appearance (Clear) Urine pH (5.0-8.0) Ur Specific [place] (1.001-1.035) Urine Protein (Negative) Urine Glucose (UA) (Negative) Urine Ketones (Negative) Urine Blood (Negative) Urine Nitrite (Negative) Urine Bilirubin (Negative) Urine Urobilinogen (<2.0) mg/dL Ur Leukocyte Esterase (Negative) Urine RBC (0-5) /hpf Urine WBC (0-5) /hpf Urine WBC Clumps (None) /hpf Ur Squamous Epith Cells (0-4) /hpf Urine Mucus (None) /hpf Coronavirus (PCR) (Not Detectd) 01/13/22 01/13/22 01/14/22 Range/Units 23:52 23:52 00:17 WBC (3.8-10.6) k/uL RBC (4.30-5.90) m/uL Hgb (13.0-17.5) gm/dL Hct (39.0-53.0) % MCV (80.0-100.0) fL MCH (25.0-35.0) pg MCHC (31.0-37.0) g/dL RDW (11.5-15.5) % Plt Count (150-450) k/uL MPV Immature Gran % (Auto) % Absolute Nucleated RBC (0.00-0.00) X 10*3/uL Neutrophils % % Lymphocytes % % Monocytes % % Eosinophils % % Basophils % % Immature Gran # (0.00-0.04) X 10*3/uL Neutrophils # (1.3-7.7) k/uL Lymphocytes # (1.0-4.8) k/uL Monocytes # (0-1.0) k/uL Eosinophils # (0-0.7) k/uL Basophils # (0-0.2) k/uL NRBC/100 WBC Diff (0.0-0.0) /100 WBCS PT (9.0-12.0) sec INR (<1.2) APTT (22.0-30.0) sec Sodium (137-145) mmol/L Potassium (3.5-5.1) mmol/L Chloride (98-107) mmol/L Carbon Dioxide (22-30) mmol/L Anion Gap mmol/L BUN (9-20) mg/dL Creatinine (0.66-1.25) mg/dL Est GFR (CKD-EPI)AfAm (>60 ml/min/1.73 sqM) Est GFR (CKD-EPI)NonAf (>60 ml/min/1.73 sqM) BUN/Creatinine Ratio (12.00-20.00) Ratio Glucose (74-99) mg/dL Plasma Lactic Acid Justino 1.2 (0.7-2.0) mmol/L Calcium (8.4-10.2) mg/dL Magnesium (1.6-2.3) mg/dL Total Bilirubin (0.2-1.3) mg/dL AST (17-59) U/L ALT (4-49) U/L Alkaline Phosphatase (38-126) U/L Troponin I 0.023 (0.000-0.034) ng/mL Total Protein (6.3-8.2) g/dL Albumin (3.5-5.0) g/dL Globulin (1.6-3.3) g/dL Albumin/Globulin Ratio (1.60-3.17) g/dL Urine Color Light Yellow Urine Appearance Cloudy (Clear) Urine pH 7.5 (5.0-8.0) Ur Specific [place] 1.013 (1.001-1.035) Urine Protein 1+ H (Negative) Urine Glucose (UA) Negative (Negative) Urine Ketones Negative (Negative) Urine Blood Small H (Negative) Urine Nitrite Positive (Negative) Urine Bilirubin Negative (Negative) Urine Urobilinogen <2.0 (<2.0) mg/dL Ur Leukocyte Esterase Large H (Negative) Urine RBC 18 H (0-5) /hpf Urine WBC >182 H (0-5) /hpf Urine WBC Clumps Moderate H (None) /hpf Ur Squamous Epith Cells 1 (0-4) /hpf Urine Mucus Rare H (None) /hpf Coronavirus (PCR) (Not Detectd) 01/14/22 01/14/22 01/15/22 Range/Units 00:17 12:28 05:27 WBC (3.8-10.6) k/uL RBC (4.30-5.90) m/uL Hgb (13.0-17.5) gm/dL Hct (39.0-53.0) % MCV (80.0-100.0) fL MCH (25.0-35.0) pg MCHC (31.0-37.0) g/dL RDW (11.5-15.5) % Plt Count (150-450) k/uL MPV Immature Gran % (Auto) % Absolute Nucleated RBC (0.00-0.00) X 10*3/uL Neutrophils % % Lymphocytes % % Monocytes % % Eosinophils % % Basophils % % Immature Gran # (0.00-0.04) X 10*3/uL Neutrophils # (1.3-7.7) k/uL Lymphocytes # (1.0-4.8) k/uL Monocytes # (0-1.0) k/uL Eosinophils # (0-0.7) k/uL Basophils # (0-0.2) k/uL NRBC/100 WBC Diff (0.0-0.0) /100 WBCS PT 21.8 H 22.1 H (9.0-12.0) sec INR 2.2 H 2.2 H (<1.2) APTT (22.0-30.0) sec Sodium (137-145) mmol/L Potassium (3.5-5.1) mmol/L Chloride (98-107) mmol/L Carbon Dioxide (22-30) mmol/L Anion Gap mmol/L BUN (9-20) mg/dL Creatinine (0.66-1.25) mg/dL Est GFR (CKD-EPI)AfAm (>60 ml/min/1.73 sqM) Est GFR (CKD-EPI)NonAf (>60 ml/min/1.73 sqM) BUN/Creatinine Ratio (12.00-20.00) Ratio Glucose (74-99) mg/dL Plasma Lactic Acid Justino (0.7-2.0) mmol/L Calcium (8.4-10.2) mg/dL Magnesium (1.6-2.3) mg/dL Total Bilirubin (0.2-1.3) mg/dL AST (17-59) U/L ALT (4-49) U/L Alkaline Phosphatase (38-126) U/L Troponin I (0.000-0.034) ng/mL Total Protein (6.3-8.2) g/dL Albumin (3.5-5.0) g/dL Globulin (1.6-3.3) g/dL Albumin/Globulin Ratio (1.60-3.17) g/dL Urine Color Urine Appearance (Clear) Urine pH (5.0-8.0) Ur Specific [place] (1.001-1.035) Urine Protein (Negative) Urine Glucose (UA) (Negative) Urine Ketones (Negative) Urine Blood (Negative) Urine Nitrite (Negative) Urine Bilirubin (Negative) Urine Urobilinogen (<2.0) mg/dL Ur Leukocyte Esterase (Negative) Urine RBC (0-5) /hpf Urine WBC (0-5) /hpf Urine WBC Clumps (None) /hpf Ur Squamous Epith Cells (0-4) /hpf Urine Mucus (None) /hpf Coronavirus (PCR) Not Detected (Not Detectd) 01/15/22 01/15/22 01/16/22 Range/Units 05:27 05:27 05:53 WBC 7.53 (3.8-10.6) k/uL RBC 4.16 L (4.30-5.90) m/uL Hgb 12.1 L (13.0-17.5) gm/dL Hct 37.4 L (39.0-53.0) % MCV 89.9 (80.0-100.0) fL MCH 29.1 (25.0-35.0) pg MCHC 32.4 (31.0-37.0) g/dL RDW 13.6 (11.5-15.5) % Plt Count 132 L (150-450) k/uL MPV 10.7 Immature Gran % (Auto) 0.5 % Absolute Nucleated RBC 0 (0.00-0.00) X 10*3/uL Neutrophils % 67.7 % Lymphocytes % 8.0 % Monocytes % 19.4 % Eosinophils % 4.0 % Basophils % 0.4 % Immature Gran # 0.04 (0.00-0.04) X 10*3/uL Neutrophils # 5.10 (1.3-7.7) k/uL Lymphocytes # 0.60 L (1.0-4.8) k/uL Monocytes # 1.46 H (0-1.0) k/uL Eosinophils # 0.30 (0-0.7) k/uL Basophils # 0.03 (0-0.2) k/uL NRBC/100 WBC Diff 0 (0.0-0.0) /100 WBCS PT 23.3 H (9.0-12.0) sec INR 2.3 H (<1.2) APTT (22.0-30.0) sec Sodium 143 (137-145) mmol/L Potassium 4.9 (3.5-5.1) mmol/L Chloride 108 (98-107) mmol/L Carbon Dioxide 26.1 (22-30) mmol/L Anion Gap 8.70 L mmol/L BUN 21.1 (9-20) mg/dL Creatinine 1.6 H (0.66-1.25) mg/dL Est GFR (CKD-EPI)AfAm 48.6 L (>60 ml/min/1.73 sqM) Est GFR (CKD-EPI)NonAf 42.0 L (>60 ml/min/1.73 sqM) BUN/Creatinine Ratio 13.61 (12.00-20.00) Ratio Glucose 111 H (74-99) mg/dL Plasma Lactic Acid Justino (0.7-2.0) mmol/L Calcium 8.7 (8.4-10.2) mg/dL Magnesium (1.6-2.3) mg/dL Total Bilirubin 0.70 (0.2-1.3) mg/dL AST 14 (17-59) U/L ALT 9 L (4-49) U/L Alkaline Phosphatase 59 (38-126) U/L Troponin I (0.000-0.034) ng/mL Total Protein 5.6 L (6.3-8.2) g/dL Albumin 3.8 (3.5-5.0) g/dL Globulin 1.8 (1.6-3.3) g/dL Albumin/Globulin Ratio 2.13 (1.60-3.17) g/dL Urine Color Urine Appearance (Clear) Urine pH (5.0-8.0) Ur Specific [place] (1.001-1.035) Urine Protein (Negative) Urine Glucose (UA) (Negative) Urine Ketones (Negative) Urine Blood (Negative) Urine Nitrite (Negative) Urine Bilirubin (Negative) Urine Urobilinogen (<2.0) mg/dL Ur Leukocyte Esterase (Negative) Urine RBC (0-5) /hpf Urine WBC (0-5) /hpf Urine WBC Clumps (None) /hpf Ur Squamous Epith Cells (0-4) /hpf Urine Mucus (None) /hpf Coronavirus (PCR) (Not Detectd) 01/16/22 01/16/22 Range/Units 05:53 05:53 WBC 7.25 (3.8-10.6) k/uL RBC 4.16 L (4.30-5.90) m/uL Hgb 11.9 L (13.0-17.5) gm/dL Hct 37.8 L (39.0-53.0) % MCV 90.9 (80.0-100.0) fL MCH 28.6 (25.0-35.0) pg MCHC 31.5 L (31.0-37.0) g/dL RDW 13.5 (11.5-15.5) % Plt Count 134 L (150-450) k/uL MPV 10.8 Immature Gran % (Auto) 0.6 % Absolute Nucleated RBC 0 (0.00-0.00) X 10*3/uL Neutrophils % 66.6 % Lymphocytes % 10.2 % Monocytes % 16.8 % Eosinophils % 5.2 % Basophils % 0.6 % Immature Gran # 0.04 (0.00-0.04) X 10*3/uL Neutrophils # 4.83 (1.3-7.7) k/uL Lymphocytes # 0.74 L (1.0-4.8) k/uL Monocytes # 1.22 H (0-1.0) k/uL Eosinophils # 0.38 H (0-0.7) k/uL Basophils # 0.04 (0-0.2) k/uL NRBC/100 WBC Diff 0 (0.0-0.0) /100 WBCS PT (9.0-12.0) sec INR (<1.2) APTT (22.0-30.0) sec Sodium 144 (137-145) mmol/L Potassium 4.7 (3.5-5.1) mmol/L Chloride 109 (98-107) mmol/L Carbon Dioxide 28.2 H (22-30) mmol/L Anion Gap 6.80 L mmol/L BUN 19.8 (9-20) mg/dL Creatinine 1.6 H (0.66-1.25) mg/dL Est GFR (CKD-EPI)AfAm 46.8 L (>60 ml/min/1.73 sqM) Est GFR (CKD-EPI)NonAf 40.4 L (>60 ml/min/1.73 sqM) BUN/Creatinine Ratio 12.38 (12.00-20.00) Ratio Glucose 104 (74-99) mg/dL Plasma Lactic Acid Justino (0.7-2.0) mmol/L Calcium 8.7 (8.4-10.2) mg/dL Magnesium (1.6-2.3) mg/dL Total Bilirubin (0.2-1.3) mg/dL AST (17-59) U/L ALT (4-49) U/L Alkaline Phosphatase (38-126) U/L Troponin I (0.000-0.034) ng/mL Total Protein (6.3-8.2) g/dL Albumin (3.5-5.0) g/dL Globulin (1.6-3.3) g/dL Albumin/Globulin Ratio (1.60-3.17) g/dL Urine Color Urine Appearance (Clear) Urine pH (5.0-8.0) Ur Specific [place] (1.001-1.035) Urine Protein (Negative) Urine Glucose (UA) (Negative) Urine Ketones (Negative) Urine Blood (Negative) Urine Nitrite (Negative) Urine Bilirubin (Negative) Urine Urobilinogen (<2.0) mg/dL Ur Leukocyte Esterase (Negative) Urine RBC (0-5) /hpf Urine WBC (0-5) /hpf Urine WBC Clumps (None) /hpf Ur Squamous Epith Cells (0-4) /hpf Urine Mucus (None) /hpf Coronavirus (PCR) (Not Detectd) Disposition Clinical Impression: UTI (urinary tract infection), Weakness Disposition: ADMITTED IP TO THIS HOSP Condition: Fair Is patient prescribed a controlled substance at d/c from ED?: No
[2022-01-14] MEDS: SODIUM CHLORIDE 0.9% 1,000 ML IV SCH ×3 (03:09→21:32)
[2022-01-14] MEDS ORDERED: FAMOTIDINE 20 MG TAB PO SCH (09:00)
[2022-01-14] MEDS: FAMOTIDINE 20 MG TAB PO SCH (09:55)
[2022-01-14] MEDS: ASPIRIN 81 MG PO SCH (09:55)
[2022-01-14] MEDS: TAMSULOSIN 0.4 MG CAP.ER.24H PO SCH ×2 (09:55→21:32)
[2022-01-14] MEDS: METOPROLOL TARTRATE 25 MG TAB PO SCH ×2 (09:55→21:31)
[2022-01-14] MEDS: GABAPENTIN 300 MG CAP PO SCH ×3 (09:55→21:32)
[2022-01-14] MEDS: IOPAMIDOL CONTRAST (ORAL USE) VIAL PO PRN ×2 (11:30→12:27)
[2022-01-14 12:45] LABS: INR 2.2 (<1.2); Prothrombin Time 21.8 sec (9.0-12.0)
--- NOTE | 2022-01-14 13:37 | HP ---
HISTORY AND PHYSICAL CHIEF COMPLAINTS: Lower abdominal discomfort and also has weakness. HISTORY OF PRESENT ILLNESS: This 81-year-old gentleman with a past medical history of multiple complex medical issues, atrial fibrillation, hypertension, hyperlipidemia, being followed by Dr. Jeison Reyes. The patient complains of weakness, tiredness and lower abdominal discomfort also. Patient came to [facility] and possibility of UTI was suspected. The possibility of diverticulitis and urolithiasis also being considered. There is no history of fever, rigors, or chills at this time. PAST MEDICAL HISTORY: Reviewed, include atrial fibrillation, hypertension, hyperlipidemia, multiple medical issues. HOME MEDICATIONS: Again reviewed Coumadin. The rest of the medication doses are reviewed. ALLERGIES: None. FAMILY HISTORY: Melanoma. SOCIAL HISTORY: No history of smoke. Occasional alcohol intake. REVIEW OF SYSTEMS: A 14-point review is negative as mentioned earlier. PHYSICAL EXAMINATION: VITAL SIGNS: Pulse 68, blood pressure 124/60, and respirations 14. HEENT: Conjunctivae normal. NECK: No jugular venous distention. CARDIOVASCULAR: S1, S2 muffled. RESPIRATIONS: scattered rhonchi. ABDOMEN: Soft, mild diffuse discomfort in the lower part of the abdomen, distention present, possibly abdominal wall hernia also present. and normal. Bowel sounds present. LEGS: No edema, no swelling. NERVOUS SYSTEM: No focal deficits. LABS: WBC 11.2, rest of the labs are noted. ASSESSMENT: 1. Lower abdominal pain, possibly acute urinary tract infection. 2. Rule out acute diverticulitis. 3. Rule out acute ureterolithiasis. 4. Back pain. 5. Atrial fibrillation. 6. Multiple medical issues. RECOMMENDATIONS: This 81-year-old gentleman presented with multiple complex medical issues as listed above and a at this time we will initiate empiric antibiotics. Obtain the cultures, blood, and urine. I would also recommend a CT scan of the abdomen and pelvis to rule out the possibility of any acute diverticulitis or urolithiasis. Other than that, we will continue to monitor, cut down the IV fluids. See orders for details. Home medication, will continue DVT prophylaxis. Prognosis extremely guarded because of multiple complex medical issues. Discussed with the patient, he understands. Further recommendations to follow. MMODL / IJN: [id number] / [facility]
--- NOTE | 2022-01-14 13:46 | CT ---
EXAMINATION TYPE: CT abdomen pelvis wo con DATE OF EXAM: 01/14/2022 COMPARISON: 08/21/2020 HISTORY: Abdominal pain CT DLP: 842 mGycm Examination of the solid and hollow viscera is limited given the lack of contrast. FINDINGS: LUNG BASES: No evidence for nodule. No evidence for infiltrate. Evidence of cardiomegaly. LIVER/GB: The gallbladder is unremarkable. No space-occupying hepatic lesion. PANCREAS: No pancreatic mass identified. No inflammatory process seen. SPLEEN: No evidence for splenomegaly. No intrasplenic lesions seen. ADRENALS: No adrenal nodules identified. No evidence for thickening. KIDNEYS: No evidence for renal mass. No nephrolithiasis. Renal parenchymal thinning bilaterally. Ther e is a mild hydronephrosis seen bilaterally with distended urinary bladder. Correlate for bladder out let obstruction. Parapelvic renal cysts noted. BOWEL: Stable 3.7 cm cystic structure directly adjacent to the gastric cardia and a reflect a diverti culum or perigastric cyst. Appendix has a normal appearance. No evidence of bowel obstruction. No inf lammatory process. Lymph nodes: No evidence for adenopathy greater than 1 cm. Abdominal aorta: Atheromatous changes seen. Stable infrarenal abdominal aortic aneurysm measuring 3.3 cm AP dimension. Genital organs: No significant abnormality. Other: No significant abnormality. IMPRESSION: 1. Distended urinary bladder as well as bilateral hydronephrosis. Correlate for bladder outlet obstru ction. No obstructing calculus seen. 2. Renal parenchymal thinning left greater than right associated parapelvic cysts and cortical cysts. 3. 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 4 moderate fecal stasis.
[2022-01-14] MEDS: BACLOFEN 10 MG TAB PO SCH ×2 (16:14→21:32)
[2022-01-14] MEDS: WARFARIN 1.25 MG TAB PO SCH (17:56)
[2022-01-14] MEDS ORDERED: WARFARIN 2.5 MG TAB PO SCH (18:30)
[2022-01-14] MEDS: ATORVASTATIN 20 MG TAB PO SCH (21:32)
[2022-01-14] MEDS: ISOSORBIDE MONONITRATE ER 60 MG TAB.ER.24H PO SCH (21:32)
[2022-01-14] MEDS: DIGOXIN 125 MCG TAB PO SCH (21:32)
[2022-01-14] MEDS: lisinopriL 20 MG TAB PO SCH (21:32)
[2022-01-15 06:01] LABS: INR 2.2 (<1.2); Prothrombin Time 22.1 sec (9.0-12.0)
[2022-01-15] MEDS: GABAPENTIN 300 MG CAP PO SCH ×3 (07:43→19:46)
[2022-01-15] MEDS: FAMOTIDINE 20 MG TAB PO SCH (07:43)
[2022-01-15] MEDS: TAMSULOSIN 0.4 MG CAP.ER.24H PO SCH ×2 (07:43→19:46)
[2022-01-15] MEDS: ASPIRIN 81 MG PO SCH (07:43)
[2022-01-15] MEDS: BACLOFEN 10 MG TAB PO SCH ×3 (07:43→19:46)
[2022-01-15] MEDS: METOPROLOL TARTRATE 25 MG TAB PO SCH ×2 (07:43→19:45)
[2022-01-15 10:17] LABS: Basophils # (A) 0.03 X 10*3/uL (0.00-0.10); Basophils % (A) 0.4 %; HCT 37.4 % (39.6-50.0); HGB 12.1 g/dL (13.0-17.0); Immature Grans, Automated 0.5 %; MCH 29.1 pg (27.0-32.0); MCHC 32.4 g/dL (32.0-37.0); MCV 89.9 fL (80.0-97.0); Mean Platelet Volume 10.7 fL (9.5-12.2); Monocytes # (A) 1.46 X 10*3/uL (0.20-1.00); Monocytes % (A) 19.4 %; NRBC Per 100 WBC 0 /100 WBCS (0.0-0.0); Neutrophils % (A) 67.7 %; Platelet Count 132 X 10*3/uL (140-440); RBC 4.16 X 10*6/uL (4.40-5.60); RDW 13.6 % (11.5-14.5); WBC 7.53 X 10*3/uL (4.50-10.00)
[2022-01-15 10:50] LABS: African American GFR (CKD) 48.6 (60.0-200.0); Albumin 3.8 g/dL (3.8-4.9); Albumin/Globulin Ratio 2.13 (1.60-3.17); Anion Gap 8.7 mmol/L (10.00-18.00); BUN/Creat Ratio 13.61 Ratio (12.00-20.00); Blood Urea Nitrogen 21.1 mg/dL (9.0-27.0); Calcium 8.7 mg/dL (8.7-10.3); Carbon Dioxide 26.1 mmol/L (20.0-27.5); Globulin 1.8 g/dL (1.6-3.3); Potassium 4.9 mmol/L (3.5-5.5); Total Bilirubin 0.7 mg/dL (0.30-1.20); Total Protein 5.6 g/dL (6.2-8.2)
[2022-01-15] MEDS: SODIUM CHLORIDE 0.9% 1,000 ML IV SCH (14:25)
--- NOTE | 2022-01-15 15:06 | PN ---
PROGRESS NOTE This is a 81-year-old gentleman admitted with lower abdominal discomfort, and also had a bladder distention and possibly mild hydronephrosis. Also the patient had some prostate issues previously and was doing self catheterization with Coude catheter previously. PHYSICAL EXAMINATION: VITAL SIGNS: Pulse is 66, blood pressure 154/82, respirations 16. HEENT: Conjunctivae normal. NECK: No jugular venous distention. CARDIOVASCULAR: S1, S2 muffled. RESPIRATIONS: Breath sounds diminished at the bases. No rhonchi. ABDOMEN: Soft, slight distention, abdominal wall weakness also present. LABS: Reviewed include creatinine 1.6. Other labs are noted. UA noted. Cultures are negative so far. ASSESSMENT: 1. Lower abdominal pain, possible acute urinary tract infection. 2. Possible bladder distention as well as mild hydronephrosis. 3. Back pain. 4. Atrial fibrillation. 5. Multiple medical issues. RECOMMENDATIONS: Continue current medications and symptomatic treatment. Continue antibiotics. Recommend repeat labs in the morning and possible urology evaluation. Guarded prognosis. Follow the cultures. Further recommendations to follow. MMODL / IJN: [id number] /
[2022-01-15] MEDS: WARFARIN 1.25 MG TAB PO SCH (17:16)
[2022-01-15] MEDS: lisinopriL 20 MG TAB PO SCH (19:45)
[2022-01-15] MEDS: ATORVASTATIN 20 MG TAB PO SCH (19:45)
[2022-01-15] MEDS: ISOSORBIDE MONONITRATE ER 60 MG TAB.ER.24H PO SCH (19:45)
[2022-01-15] MEDS: DIGOXIN 125 MCG TAB PO SCH (19:45)
[2022-01-16] MEDS: SODIUM CHLORIDE 0.9% 1,000 ML IV SCH ×2 (03:08→17:27)
--- NOTE | 2022-01-16 06:21 | P.GSCN ---
History of Present Illness Consult date: 01/15/22 Reason for Consult: Hydronephrosis Requesting physician: Rip Martinez History of present illness: The patient is a 81-year-old white male well known to our practice. He was diagnosed with Maverick 8 prostate cancer in late 2014, and was treated with external beam radiation therapy and 2 years of androgen deprivation therapy. His most recent PSA level was 0.1 in September 2021. He is known to empty his bladder incompletely and performs intermittent self-catheterization TID for this reason. He also voids, and states that catheterization volumes are 200-500 mL. He has experienced progressive lower extremity weakness since late October, and is now admitted with generalized weakness. Urinalysis is suggestive of infection. CT scan shows bladder distention and mild bilateral hydronephrosis. He reports low back and suprapubic pain, the significance of which is unclear. Review of Systems - Constitutional Reports chills, Reports fatigue, Reports weakness, Denies fever - Genitourinary Denies dysuria, Denies hematuria Past Medical History Past Medical History: Atrial Fibrillation, Cancer, CVA/TIA, Hyperlipidemia, Hypertension, Osteoarthritis (OA), Prostate Disorder, Thyroid Disorder Additional Past Medical History / Comment(s): MS, hx. prostate cancer 2014-had radiation. Generator change-01/14/2019 PACEMAKER ONLY, NO DEFIBRILLATOR Last Myocardial Infarction Date:: unk DATE History of Any Multi-Drug Resistant Organisms: None Reported Past Surgical History: Back Surgery, Heart Catheterization, Hernia Repair, Pacemaker Additional Past Surgical History / Comment(s): PACEMAKER, Generator change- 01/14/2019 Past Anesthesia/Blood Transfusion Reactions: No Reported Reaction Type of Cardiac Device: Permanent Pacemaker Device Placement Date:: 05/02/11 Past Psychological History: No Psychological Hx Reported Smoking Status: Never smoker Past Alcohol Use History: Occasional Additional Past Alcohol Use History / Comment(s): STARTED SMOKING AT AGE 20 quit smoking 1992, smoked 1ppd Past Drug Use History: None Reported - Past Family History Mother Family Medical History: No Reported History Sister(s) Family Medical History: Cancer Additional Family Medical History / Comment(s): melanoma Medications and Allergies Home Medications Medication Instructions Recorded Confirmed Type Aspirin 81 mg PO DAILY@0700 09/02/13 01/14/22 History Baclofen [Lioresal] 10 mg PO TID@0700,1500,2300 09/02/13 01/14/22 History Digoxin [Lanoxin] 125 mcg PO HS@229909/02/13 01/14/22 History Isosorbide Mononitrate [Imdur] 60 mg PO HS@229909/02/13 01/14/22 History Simvastatin [Zocor] 40 mg PO HS@182909/02/13 01/14/22 History Warfarin [Coumadin] 2.5 mg PO SA@182909/02/13 01/14/22 History ramipriL [Altace] 10 mg PO DAILY@182909/02/13 01/14/22 History Warfarin [Coumadin] 1.25 mg PO SUMOTUWETHFR@182903/06/18 01/14/22 History Tamsulosin [Flomax] 0.4 mg PO BID@0700,182909/03/19 01/14/22 History Gabapentin [Neurontin] 300 mg PO TID@0700,1500,229904/20/20 01/14/22 History Metoprolol Tartrate [Lopressor] 75 mg PO BID@0700,182904/20/20 01/14/22 History Methenamine Hippurate 1 gm PO BID@0700,182901/14/22 01/14/22 History Allergies Allergy/AdvReac Type Severity Reaction Status Date / Time No Known Allergies Allergy Verified 01/14/22 11:20 Surgical - Exam Vital Signs Temp Pulse Resp BP Pulse Ox 100.7 F H 71 18 149/72 94 L 01/13/22 23:06 01/13/22 23:06 01/13/22 23:06 01/13/22 23:06 01/13/22 23:06 - General well developed, well nourished, no distress - Respiratory normal respiratory effort - Abdomen Abdomen: soft, non tender, no guarding, no rigid, no rebound - Genitourinary normal penis with no external lesions, testicles non-tender - Psychiatric oriented to time, oriented to person, oriented to place, speech is normal, memory intact Results - Labs 01/15/22 05:27 01/15/22 05:27 Abnormal Lab Results - Last 24 Hours (Table) 01/15/22 01/15/22 01/15/22 Range/Units 05:27 05:27 05:27 RBC 4.16 L (4.40-5.60) X 10*6/uL Hgb 12.1 L (13.0-17.0) g/dL Hct 37.4 L (39.6-50.0) % Plt Count 132 L (140-440) X 10*3/uL Lymphocytes # 0.60 L (0.90-5.00) X 10*3/uL Monocytes # 1.46 H (0.20-1.00) X 10*3/uL PT 22.1 H (9.0-12.0) sec INR 2.2 H (<1.2) Anion Gap 8.70 L (10.00-18.00) mmol/L Creatinine 1.6 H (0.6-1.5) mg/dL Est GFR (CKD-EPI)AfAm 48.6 L (60.0-200.0) Est GFR (CKD-EPI)NonAf 42.0 L (60.0-200.0) Glucose 111 H (70-110) mg/dL ALT 9 L (10-49) U/L Total Protein 5.6 L (6.2-8.2) g/dL Microbiology - Last 24 Hours (Table) 01/14/22 12:56 Urine Culture - Final Urine,Voided 01/14/22 00:17 Urine Culture - Final Urine,Voided Diabetes panel 01/15/22 Range/Units 05:27 Sodium 143 (135-145) mmol/L Potassium 4.9 (3.5-5.5) mmol/L Chloride 108 (96-109) mmol/L Carbon Dioxide 26.1 (20.0-27.5) mmol/L BUN 21.1 (9.0-27.0) mg/dL Creatinine 1.6 H (0.6-1.5) mg/dL Glucose 111 H (70-110) mg/dL Calcium 8.7 (8.7-10.3) mg/dL AST 14 (14-35) U/L ALT 9 L (10-49) U/L Alkaline Phosphatase 59 (41-126) U/L Total Protein 5.6 L (6.2-8.2) g/dL Albumin 3.8 (3.8-4.9) g/dL Calcium panel 01/15/22 Range/Units 05:27 Calcium 8.7 (8.7-10.3) mg/dL Albumin 3.8 (3.8-4.9) g/dL Pituitary panel 01/15/22 Range/Units 05:27 Sodium 143 (135-145) mmol/L Potassium 4.9 (3.5-5.5) mmol/L Chloride 108 (96-109) mmol/L Carbon Dioxide 26.1 (20.0-27.5) mmol/L BUN 21.1 (9.0-27.0) mg/dL Creatinine 1.6 H (0.6-1.5) mg/dL Glucose 111 H (70-110) mg/dL Calcium 8.7 (8.7-10.3) mg/dL Adrenal panel 01/15/22 Range/Units 05:27 Sodium 143 (135-145) mmol/L Potassium 4.9 (3.5-5.5) mmol/L Chloride 108 (96-109) mmol/L Carbon Dioxide 26.1 (20.0-27.5) mmol/L BUN 21.1 (9.0-27.0) mg/dL Creatinine 1.6 H (0.6-1.5) mg/dL Glucose 111 H (70-110) mg/dL Calcium 8.7 (8.7-10.3) mg/dL Total Bilirubin 0.70 (0.30-1.20) mg/dL AST 14 (14-35) U/L ALT 9 L (10-49) U/L Alkaline Phosphatase 59 (41-126) U/L Total Protein 5.6 L (6.2-8.2) g/dL Albumin 3.8 (3.8-4.9) g/dL - Imaging CT scan - abdomen: report reviewed, image reviewed Assessment and Plan (1) Unspecified hydronephrosis Current Visit: No Status: Acute Code(s): N13.30 - UNSPECIFIED HYDRONEPHROSIS SNOMED Code(s): 89399720 (2) Retention, urine Current Visit: No Status: Acute Code(s): R33.9 - RETENTION OF URINE, UNSPECIFIED SNOMED Code(s): 010001658 Plan: Mr. Peralta has chronic hydronephrosis due to incomplete bladder emptying. The hydronephrosis is currently mild in severity. His creatinine level has risen slightly, and it may be advisable for him to catheterize 4 times daily. The fact that urinalysis is consistent with a UTI is not surprising, given that he self catheterizes. It is unclear whether or not bacteriuria is contributing to his symptomatology, as his weakness may simply be an exacerbation of his MS. 2 urine specimens were sent for culture, one showing mixed genital mulugeta and the other no growth. I would suggest that he be treated empirically with broad- spectrum antibiotics and continue to self catheterize himself. Time with Patient: Greater than 30
[2022-01-16 06:35] LABS: INR 2.3 (<1.2); Prothrombin Time 23.3 sec (9.0-12.0)
[2022-01-16] MEDS: METOPROLOL TARTRATE 25 MG TAB PO SCH ×2 (08:00→20:28)
[2022-01-16] MEDS: ASPIRIN 81 MG PO SCH (08:00)
[2022-01-16] MEDS: GABAPENTIN 300 MG CAP PO SCH ×3 (08:00→20:28)
[2022-01-16] MEDS: TAMSULOSIN 0.4 MG CAP.ER.24H PO SCH ×2 (08:00→20:28)
[2022-01-16] MEDS: BACLOFEN 10 MG TAB PO SCH ×3 (08:00→20:28)
[2022-01-16] MEDS: FAMOTIDINE 20 MG TAB PO SCH (08:00)
--- NOTE | 2022-01-16 08:20 | P.PN ---
Subjective Progress Note Date: 01/16/22 The patient was seen by yesterday for incomplete urinary emptying and hydronephrosis. The hydronephrosis is mild. The patient is well-known to our office. He has had previous radiation therapy and was under the care of for this prostate cancer. The patient also has incomplete bladder emptying and does intermittent catheterization 3 times a day. He has a urine infection. Otherwise nothing has changed. He should follow-up in our office after treatment of the infection. Reassessment for possible TURP to liberate him of the catheter would be discussed. Objective - Vital Signs Vital signs: Vital Signs Temp 97.4 F L 01/16/22 07:00 Pulse 61 01/16/22 07:00 Resp 18 01/16/22 07:00 BP 143/82 01/16/22 07:00 Pulse Ox 98 01/16/22 07:00 FiO2 Intake & Output 01/15/22 01/16/22 01/16/22 18:59 06:59 18:59 Intake Total 354 Output Total 1475 600 Balance -1121 -600 Intake: Oral 354 Output: Urine 1475 600 Other: Voiding Method Self-Catheterization Self-Catheterization # Voids 1 # Bowel Movements 1 - Labs CBC & Chem 7: 01/15/22 05:27 01/15/22 05:27 Labs: Abnormal Lab Results - Last 24 Hours (Table) 01/15/22 01/15/22 01/16/22 Range/Units 05:27 05:27 05:53 RBC 4.16 L (4.40-5.60) X 10*6/uL Hgb 12.1 L (13.0-17.0) g/dL Hct 37.4 L (39.6-50.0) % Plt Count 132 L (140-440) X 10*3/uL Lymphocytes # 0.60 L (0.90-5.00) X 10*3/uL Monocytes # 1.46 H (0.20-1.00) X 10*3/uL PT 23.3 H (9.0-12.0) sec INR 2.3 H (<1.2) Anion Gap 8.70 L (10.00-18.00) mmol/L Creatinine 1.6 H (0.6-1.5) mg/dL Est GFR (CKD-EPI)AfAm 48.6 L (60.0-200.0) Est GFR (CKD-EPI)NonAf 42.0 L (60.0-200.0) Glucose 111 H (70-110) mg/dL ALT 9 L (10-49) U/L Total Protein 5.6 L (6.2-8.2) g/dL Microbiology - Last 24 Hours (Table) 01/14/22 12:56 Urine Culture - Final Urine,Voided 01/14/22 00:17 Urine Culture - Final Urine,Voided
[2022-01-16 08:41] LABS: Basophils # (A) 0.04 X 10*3/uL (0.00-0.10); Basophils % (A) 0.6 %; Eosinophils # (A) 0.38 X 10*3/uL (0.04-0.35); Eosinophils % (A) 5.2 %; HCT 37.8 % (39.6-50.0); HGB 11.9 g/dL (13.0-17.0); Immature Grans, Automated 0.6 %; Lymphocytes # (A) 0.74 X 10*3/uL (0.90-5.00); Lymphocytes % (A) 10.2 %; MCH 28.6 pg (27.0-32.0); MCHC 31.5 g/dL (32.0-37.0); MCV 90.9 fL (80.0-97.0); Mean Platelet Volume 10.8 fL (9.5-12.2); Monocytes # (A) 1.22 X 10*3/uL (0.20-1.00); Monocytes % (A) 16.8 %; NRBC Per 100 WBC 0 /100 WBCS (0.0-0.0); Neutrophils # (A) 4.83 X 10*3/uL (1.80-7.70); Neutrophils % (A) 66.6 %; Platelet Count 134 X 10*3/uL (140-440); RBC 4.16 X 10*6/uL (4.40-5.60); RDW 13.5 % (11.5-14.5); WBC 7.25 X 10*3/uL (4.50-10.00)
[2022-01-16 08:55] LABS: African American GFR (CKD) 46.8 (60.0-200.0); Anion Gap 6.8 mmol/L (10.00-18.00); BUN/Creat Ratio 12.38 Ratio (12.00-20.00); Blood Urea Nitrogen 19.8 mg/dL (9.0-27.0); Calcium 8.7 mg/dL (8.7-10.3); Carbon Dioxide 28.2 mmol/L (20.0-27.5); Non-African American GFR(CKD) 40.4 (60.0-200.0); Potassium 4.7 mmol/L (3.5-5.5)
[2022-01-16] MEDS: WARFARIN 1.25 MG TAB PO SCH (17:59)
[2022-01-16] MEDS: lisinopriL 20 MG TAB PO SCH (20:28)
[2022-01-16] MEDS: DIGOXIN 125 MCG TAB PO SCH (20:28)
[2022-01-16] MEDS: ISOSORBIDE MONONITRATE ER 60 MG TAB.ER.24H PO SCH (20:28)
[2022-01-16] MEDS: ATORVASTATIN 20 MG TAB PO SCH (20:28)
[2022-01-17 04:56] VITALS: PULSE 64
[2022-01-17 06:48] LABS: INR 2.4 (<1.2)
[2022-01-17 07:09] VITALS: BP 153/79; RESP 17; TEMP 97.5
[2022-01-17] MEDS: BACLOFEN 10 MG TAB PO SCH (08:44)
[2022-01-17] MEDS: SODIUM CHLORIDE 0.9% 1,000 ML IV SCH (08:44)
[2022-01-17] MEDS: ASPIRIN 81 MG PO SCH (08:44)
[2022-01-17] MEDS: FAMOTIDINE 20 MG TAB PO SCH (08:45)
[2022-01-17] MEDS: GABAPENTIN 300 MG CAP PO SCH (08:45)
[2022-01-17] MEDS: TAMSULOSIN 0.4 MG CAP.ER.24H PO SCH (08:45)
[2022-01-17] MEDS: METOPROLOL TARTRATE 25 MG TAB PO SCH (08:45)
[2022-01-17 09:31] LABS: Basophils # (A) 0.03 X 10*3/uL (0.00-0.10); Basophils % (A) 0.4 %; Eosinophils # (A) 0.38 X 10*3/uL (0.04-0.35); Eosinophils % (A) 5.6 %; HCT 37.8 % (39.6-50.0); HGB 11.8 g/dL (13.0-17.0); Immature Grans, Automated 0.4 %; Lymphocytes # (A) 0.74 X 10*3/uL (0.90-5.00); Lymphocytes % (A) 10.8 %; MCH 28.4 pg (27.0-32.0); MCHC 31.2 g/dL (32.0-37.0); MCV 90.9 fL (80.0-97.0); Mean Platelet Volume 10.7 fL (9.5-12.2); Monocytes # (A) 1.18 X 10*3/uL (0.20-1.00); Monocytes % (A) 17.3 %; NRBC Per 100 WBC 0 /100 WBCS (0.0-0.0); Neutrophils # (A) 4.48 X 10*3/uL (1.80-7.70); Neutrophils % (A) 65.5 %; Platelet Count 142 X 10*3/uL (140-440); RBC 4.16 X 10*6/uL (4.40-5.60); RDW 13.7 % (11.5-14.5); WBC 6.84 X 10*3/uL (4.50-10.00)
[2022-01-17 10:01] LABS: African American GFR (CKD) 50.6 (60.0-200.0); BUN/Creat Ratio 11.33 Ratio (12.00-20.00); Non-African American GFR(CKD) 43.7 (60.0-200.0); Potassium 4.9 mmol/L (3.5-5.5)
--- NOTE | 2022-01-17 12:30 | PN ---
PROGRESS NOTE SUBJECTIVE: This is a 81-year-old gentleman with lower abdominal pain with possible acute UTI, also had a possible delayed bladder emptying. The patient is being followed by Urology bladder outlet obstruction. No chest pain. No palpitations. No fever. The cultures are negative so far. PHYSICAL EXAMINATION: VITAL SIGNS: Pulse is 61, blood pressure ntd respirations 18. CHEST: Clear to auscultation. CARDIOVASCULAR: S1, S2. ABDOMEN: Soft. NERVOUS SYSTEM: No focal deficits. LABS: Reviewed. ASSESSMENT: 1. Lower abdominal pain, possible acute urinary tract infection. 2. Possible bladder distention as well as mild hydronephrosis. 3. Back pain. 4. Atrial fibrillation. RECOMMENDATIONS: Recommend to continue current management. Follow the cultures. Otherwise, empiric antibiotics. Continue IV fluids. Repeat labs for tomorrow. Prognosis guarded. Further recommendations to follow. AUGUSTUSL / TONJAN: [id number] / MTDD
--- NOTE | 2022-01-18 09:22 | DS ---
DISCHARGE SUMMARY FINAL DIAGNOSES: 1. Lower abdominal pain, possible acute urinary tract infection. 2. Possible bladder distention as well as mild hydronephrosis. 3. Back pain. 4. Atrial fibrillation. DISCHARGE DISPOSITION: The patient will be discharged in stable condition. Prognosis guarded. HISTORY OF PRESENT ILLNESS: This is a 81-year-old gentleman admitted with lower abdominal discomfort with possible UTI. Continue with antibiotics. Cultures are negative. PHYSICAL EXAMINATION: VITAL SIGNS: Stable. CARDIOVASCULAR: S1, S2. ABDOMEN: Soft. NERVOUS SYSTEM: No focal deficits. DISCHARGE INSTRUCTIONS: Continue the current medications, Ceftin 500 mg p.o. b.i.d. for 3 days and follow up with urology. Follow up with primary physician, Dr. Reyes. SALVADOR / MONTRELL: [id number] /
== END 2022-01-17 12:12 | disposition home or self-care (01) | DRG 690 ==
LOC: EC 22:51 → 6NMEDSUR 01-14 01:45 → OBSVTOIN 01-16 13:21
PROVIDERS: ADMIT Internal Medicine; ATTEND Internal Medicine
DX: N13.6 Pyonephrosis (principal); R53.1 Weakness; E78.5 Hyperlipidemia, unspecified; I10 Essential (primary) hypertension; I25.2 Old myocardial infarction; I48.91 Unspecified atrial fibrillation; Z20.822 Contact with and (suspected) exposure to COVID-19; M19.90 Unspecified osteoarthritis, unspecified site; G35 Multiple sclerosis; N32.0 Bladder-neck obstruction; N32.89 Other specified disorders of bladder; Z79.01 Long term (current) use of anticoagulants; Z79.82 Long term (current) use of aspirin; Z79.899 Other long term (current) drug therapy; Z85.46 Personal history of malignant neoplasm of prostate; Z86.73 Personal history of transient ischemic attack (TIA), and cerebral infarction without residual deficits; Z95.0 Presence of cardiac pacemaker; Z87.19 Personal history of other diseases of the digestive system; Z87.440 Personal history of urinary (tract) infections; Z92.3 Personal history of irradiation
CPT/HCPCS: 36415; 71046; 74176; 80048; 80053; 81001; 83605; 83735; 84484; 85025; 85610; 85730; 87086; 87635; 93005; 99285

== ENCOUNTER 2022-02-23 22:58 | Inpatient (IN) | payer MEDICARE ==
[2022-02-23] MEDS ORDERED: SODIUM CHLORIDE 0.9% 1,000 ML IV STA (23:14)
--- NOTE | 2022-02-23 23:29 | ED ---
General Adult HPI - General Chief complaint: Weakness Stated complaint: increased weakness Time Seen by Provider: 02/23/22 22:59 Source: patient, RN notes reviewed, old records reviewed Mode of arrival: EMS Limitations: no limitations - History of Present Illness Initial comments: 81-year-old male with generalized weakness history of UTI. She states that this happens to him several times a year. He's had increased weakness throughout the day today. No fever. No vomiting. No abdominal pain. He does not have dysuria or hematuria but states that his symptoms are consistent with previous urinary tract infection. No chest pain. No cough. No URI symptoms. - Related Data Home Medications Medication Instructions Recorded Confirmed Aspirin 81 mg PO DAILY@0700 09/02/13 01/14/22 Baclofen [Lioresal] 10 mg PO TID@0700,1500,2300 09/02/13 01/14/22 Digoxin [Lanoxin] 125 mcg PO HS@229909/02/13 01/14/22 Isosorbide Mononitrate [Imdur] 60 mg PO HS@229909/02/13 01/14/22 Simvastatin [Zocor] 40 mg PO HS@182909/02/13 01/14/22 Warfarin [Coumadin] 2.5 mg PO SA@182909/02/13 01/14/22 ramipriL [Altace] 10 mg PO DAILY@182909/02/13 01/14/22 Warfarin [Coumadin] 1.25 mg PO SUMOTUWETHFR@18303/06/18 01/14/22 Tamsulosin [Flomax] 0.4 mg PO BID@0700,182909/03/19 01/14/22 Gabapentin [Neurontin] 300 mg PO TID@0700,1500,2300 04/20/20 01/14/22 Metoprolol Tartrate [Lopressor] 75 mg PO BID@0700,182904/20/20 01/14/22 Methenamine Hippurate 1 gm PO BID@0700,182901/14/22 01/14/22 Previous Rx's Medication Instructions Recorded cefUROXime axetiL [Ceftin] 500 mg PO BID 3 Days #6 tab 01/17/22 Allergies Allergy/AdvReac Type Severity Reaction Status Date / Time No Known Allergies Allergy Verified 02/23/22 23:08 Review of Systems ROS Statement: Those systems with pertinent positive or pertinent negative responses have been documented in the HPI. ROS Other: All systems not noted in ROS Statement are negative. Past Medical History Past Medical History: Atrial Fibrillation, Cancer, CVA/TIA, Hyperlipidemia, Hypertension, Osteoarthritis (OA), Prostate Disorder, Thyroid Disorder Additional Past Medical History / Comment(s): MS, hx. prostate cancer 2015-had radiation. Generator change-01/14/2019 PACEMAKER ONLY, NO DEFIBRILLATOR Last Myocardial Infarction Date:: unk DATE History of Any Multi-Drug Resistant Organisms: None Reported Past Surgical History: Back Surgery, Heart Catheterization, Hernia Repair, Pacemaker Additional Past Surgical History / Comment(s): PACEMAKER, Generator change- 01/14/2019 Past Anesthesia/Blood Transfusion Reactions: No Reported Reaction Type of Cardiac Device: Permanent Pacemaker Device Placement Date:: 05/02/11 Past Psychological History: No Psychological Hx Reported Smoking Status: Never smoker Past Alcohol Use History: Occasional Past Drug Use History: None Reported - Past Family History Mother Family Medical History: No Reported History Sister(s) Family Medical History: Cancer Additional Family Medical History / Comment(s): melanoma General Exam Limitations: no limitations General appearance: alert, in no apparent distress Head exam: Present: atraumatic, normocephalic Eye exam: Present: normal appearance, PERRL ENT exam: Present: normal exam Neck exam: Present: normal inspection. Absent: tenderness, meningismus Respiratory exam: Present: normal lung sounds bilaterally. Absent: respiratory distress Cardiovascular Exam: Present: regular rate, irregular rhythm GI/Abdominal exam: Present: soft. Absent: distended, tenderness Extremities exam: Present: normal inspection, normal capillary refill Neurological exam: Present: alert, oriented X3, CN II-XII intact. Absent: motor sensory deficit Psychiatric exam: Present: normal affect, normal mood Skin exam: Present: warm, dry, intact Course Vital Signs 02/23/22 23:03 Temperature 100.9 F H Pulse Rate 69 Respiratory 20 Rate Blood Pressure 143/106 O2 Sat by Pulse 96 Oximetry EKG Findings - EKG Comments: EKG Findings:: Paced rhythm rate of 64, wide QRS, QTC 372, there is some intrinsic beats. - EKG Results: EKG: interpreted by [facility] Medical Decision Making - Medical Decision Making 81-year-old male presenting for evaluation weakness, fever, history of UTI. Patient is febrile the emergency department, vital signs are stable otherwise. His given IV fluids. Workup is initiated including CBC, CMP, urinalysis. Viral testing is negative. Patient does have UTI he has no other complaints no abdominal pain. No cough. Started on antibiotics in the emergency department awaiting culture. He will be admitted for IV hydration and weakness. - Lab Data Result diagrams: 02/23/22 23:17 02/23/22 23:17 Lab Results 02/23/22 02/23/22 02/23/22 Range/Units 23:17 23:17 23:17 WBC 5.1 (3.8-10.6) k/uL RBC 4.78 (4.30-5.90) m/uL Hgb 13.9 (13.0-17.5) gm/dL Hct 42.3 (39.0-53.0) % MCV 88.6 (80.0-100.0) fL MCH 29.0 (25.0-35.0) pg MCHC 32.7 (31.0-37.0) g/dL RDW 13.3 (11.5-15.5) % Plt Count 103 L (150-450) k/uL MPV 8.5 Neutrophils % 75 % Lymphocytes % 6 % Monocytes % 14 % Eosinophils % 1 % Basophils % 1 % Neutrophils # 3.9 (1.3-7.7) k/uL Lymphocytes # 0.3 L (1.0-4.8) k/uL Monocytes # 0.7 (0-1.0) k/uL Eosinophils # 0.1 (0-0.7) k/uL Basophils # 0.0 (0-0.2) k/uL PT 19.2 H (9.0-12.0) sec INR 1.9 H (<1.2) APTT 29.8 (22.0-30.0) sec Sodium 136 L (137-145) mmol/L Potassium 4.6 (3.5-5.1) mmol/L Chloride 101 (98-107) mmol/L Carbon Dioxide 24 (22-30) mmol/L Anion Gap 11 mmol/L BUN 30 H (9-20) mg/dL Creatinine 1.99 H (0.66-1.25) mg/dL Est GFR (CKD-EPI)AfAm 36 (>60 ml/min/1.73 sqM) Est GFR (CKD-EPI)NonAf 31 (>60 ml/min/1.73 sqM) Glucose 121 H (74-99) mg/dL Plasma Lactic Acid Justino (0.7-2.0) mmol/L Calcium 8.8 (8.4-10.2) mg/dL Magnesium 1.9 (1.6-2.3) mg/dL Total Bilirubin 0.5 (0.2-1.3) mg/dL AST 30 (17-59) U/L ALT 20 (4-49) U/L Alkaline Phosphatase 63 (38-126) U/L Total Protein 6.5 (6.3-8.2) g/dL Albumin 4.4 (3.5-5.0) g/dL Urine Color Urine Appearance (Clear) Urine pH (5.0-8.0) Ur Specific [place] (1.001-1.035) Urine Protein (Negative) Urine Glucose (UA) (Negative) Urine Ketones (Negative) Urine Blood (Negative) Urine Nitrite (Negative) Urine Bilirubin (Negative) Urine Urobilinogen (<2.0) mg/dL Ur Leukocyte Esterase (Negative) Urine RBC (0-5) /hpf Urine WBC (0-5) /hpf Coronavirus (PCR) (Not Detectd) Influenza Type A RNA (Not Detectd) Influenza Type B (PCR) (Not Detectd) 02/23/22 02/23/22 02/24/22 Range/Units 23:17 23:52 00:56 WBC (3.8-10.6) k/uL RBC (4.30-5.90) m/uL Hgb (13.0-17.5) gm/dL Hct (39.0-53.0) % MCV (80.0-100.0) fL MCH (25.0-35.0) pg MCHC (31.0-37.0) g/dL RDW (11.5-15.5) % Plt Count (150-450) k/uL MPV Neutrophils % % Lymphocytes % % Monocytes % % Eosinophils % % Basophils % % Neutrophils # (1.3-7.7) k/uL Lymphocytes # (1.0-4.8) k/uL Monocytes # (0-1.0) k/uL Eosinophils # (0-0.7) k/uL Basophils # (0-0.2) k/uL PT (9.0-12.0) sec INR (<1.2) APTT (22.0-30.0) sec Sodium (137-145) mmol/L Potassium (3.5-5.1) mmol/L Chloride (98-107) mmol/L Carbon Dioxide (22-30) mmol/L Anion Gap mmol/L BUN (9-20) mg/dL Creatinine (0.66-1.25) mg/dL Est GFR (CKD-EPI)AfAm (>60 ml/min/1.73 sqM) Est GFR (CKD-EPI)NonAf (>60 ml/min/1.73 sqM) Glucose (74-99) mg/dL Plasma Lactic Acid Justino 1.1 (0.7-2.0) mmol/L Calcium (8.4-10.2) mg/dL Magnesium (1.6-2.3) mg/dL Total Bilirubin (0.2-1.3) mg/dL AST (17-59) U/L ALT (4-49) U/L Alkaline Phosphatase (38-126) U/L Total Protein (6.3-8.2) g/dL Albumin (3.5-5.0) g/dL Urine Color Yellow Urine Appearance Clear (Clear) Urine pH 7.0 (5.0-8.0) Ur Specific [place] 1.015 (1.001-1.035) Urine Protein Trace H (Negative) Urine Glucose (UA) Negative (Negative) Urine Ketones Negative (Negative) Urine Blood Small H (Negative) Urine Nitrite Negative (Negative) Urine Bilirubin Negative (Negative) Urine Urobilinogen <2.0 (<2.0) mg/dL Ur Leukocyte Esterase Small H (Negative) Urine RBC 8 H (0-5) /hpf Urine WBC 28 H (0-5) /hpf Coronavirus (PCR) (Not Detectd) Influenza Type A RNA Not Detected (Not Detectd) Influenza Type B (PCR) Not Detected (Not Detectd) 02/24/22 Range/Units 00:56 WBC (3.8-10.6) k/uL RBC (4.30-5.90) m/uL Hgb (13.0-17.5) gm/dL Hct (39.0-53.0) % MCV (80.0-100.0) fL MCH (25.0-35.0) pg MCHC (31.0-37.0) g/dL RDW (11.5-15.5) % Plt Count (150-450) k/uL MPV Neutrophils % % Lymphocytes % % Monocytes % % Eosinophils % % Basophils % % Neutrophils # (1.3-7.7) k/uL Lymphocytes # (1.0-4.8) k/uL Monocytes # (0-1.0) k/uL Eosinophils # (0-0.7) k/uL Basophils # (0-0.2) k/uL PT (9.0-12.0) sec INR (<1.2) APTT (22.0-30.0) sec Sodium (137-145) mmol/L Potassium (3.5-5.1) mmol/L Chloride (98-107) mmol/L Carbon Dioxide (22-30) mmol/L Anion Gap mmol/L BUN (9-20) mg/dL Creatinine (0.66-1.25) mg/dL Est GFR (CKD-EPI)AfAm (>60 ml/min/1.73 sqM) Est GFR (CKD-EPI)NonAf (>60 ml/min/1.73 sqM) Glucose (74-99) mg/dL Plasma Lactic Acid Justino (0.7-2.0) mmol/L Calcium (8.4-10.2) mg/dL Magnesium (1.6-2.3) mg/dL Total Bilirubin (0.2-1.3) mg/dL AST (17-59) U/L ALT (4-49) U/L Alkaline Phosphatase (38-126) U/L Total Protein (6.3-8.2) g/dL Albumin (3.5-5.0) g/dL Urine Color Urine Appearance (Clear) Urine pH (5.0-8.0) Ur Specific [place] (1.001-1.035) Urine Protein (Negative) Urine Glucose (UA) (Negative) Urine Ketones (Negative) Urine Blood (Negative) Urine Nitrite (Negative) Urine Bilirubin (Negative) Urine Urobilinogen (<2.0) mg/dL Ur Leukocyte Esterase (Negative) Urine RBC (0-5) /hpf Urine WBC (0-5) /hpf Coronavirus (PCR) Not Detected (Not Detectd) Influenza Type A RNA (Not Detectd) Influenza Type B (PCR) (Not Detectd) Disposition Clinical Impression: UTI (urinary tract infection), Generalized weakness Disposition: ADMITTED IP TO THIS HOSP Condition: Stable Is patient prescribed a controlled substance at d/c from ED?: No Referrals: Jeison Reyes MD [Primary Care Provider] - 1-2 days Time of Disposition: 01:27
[2022-02-23 23:47] LABS: Basophils % (A) 1 %; Eosinophils # (A) 0.1 k/uL (0-0.7); Eosinophils % (A) 1 %; HCT 42.3 % (39.0-53.0); HGB 13.9 gm/dL (13.0-17.5); Lymphocytes # (A) 0.3 k/uL (1.0-4.8); Lymphocytes % (A) 6 %; MCHC 32.7 g/dL (31.0-37.0); MCV 88.6 fL (80.0-100.0); Mean Platelet Volume 8.5; Monocytes # (A) 0.7 k/uL (0-1.0); Monocytes % (A) 14 %; Neutrophils # (A) 3.9 k/uL (1.3-7.7); Neutrophils % (A) 75 %; Platelet Count 103 k/uL (150-450); RBC 4.78 m/uL (4.30-5.90); RDW 13.3 % (11.5-15.5); WBC 5.1 k/uL (3.8-10.6)
[2022-02-23 23:57] LABS: INR 1.9 (<1.2); Partial Thromboplastin Time 29.8 sec (22.0-30.0); Prothrombin Time 19.2 sec (9.0-12.0)
[2022-02-24 00:01] LABS: Albumin 4.4 g/dL (3.5-5.0); Calcium 8.8 mg/dL (8.4-10.2); Magnesium 1.9 mg/dL (1.6-2.3); Potassium 4.6 mmol/L (3.5-5.1); Total Bilirubin 0.5 mg/dL (0.2-1.3); Total Protein 6.5 g/dL (6.3-8.2)
[2022-02-24 00:06] LABS: Appearance,Urine Clear (Clear); Bilirubin,Urine Negative (Negative); Blood,Urine Small (Negative); Color,Urine Yellow; Glucose,Urine (UA) Negative (Negative); Ketones,Urine Negative (Negative); Leukocyte Esterase,Urine Small (Negative); Nitrite,Urine Negative (Negative); Protein,Urine Trace (Negative); RBC,Urine 8 /hpf (0-5); Specific Gravity,Urine 1.015 (1.001-1.035); Urobilinogen,Urine <2.0 mg/dL (<2.0); WBC,Urine 28 /hpf (0-5)
[2022-02-24] MEDS ORDERED: cefTRIAXone IN SWFI 1,000 MG/10 ML SYRINGE IVP STA (00:26)
[2022-02-24] MEDS ORDERED: ACETAMINOPHEN TAB 500 MG TAB PO STA (00:27)
[2022-02-24] MEDS ORDERED: ACETAMINOPHEN TAB 325 MG TAB PO PRN (01:25)
[2022-02-24] MEDS ORDERED: NALOXONE 0.4 MG/ML 1 ML VIAL IV PRN (01:25)
[2022-02-24] MEDS: SODIUM CHLORIDE 0.9% 1,000 ML IV SCH ×2 (04:37→18:51)
--- NOTE | 2022-02-24 13:23 | P.HPIM ---
History of Present Illness H&P Date: 02/24/22 This is a 81-year-old male who recently presented to the emergency department with increased weakness, fevers, and concerns for urinary tract infection. Patient does follow with urology outpatient with chronic mild bilateral hydronephrosis along with straight catheterization as patient does not have complete bladder emptying. Patient reports his urine output and weakness had been progressively getting worse over the last few days and developed some fevers and came here for further evaluation. Patient follows with Dr. Reyes in the outpatient setting with a past medical history of atrial fibrillation, prostate cancer post radiation, CVA, hyperlipidemia, hypertension, osteoarthritis, hypothyroidism, multiple sclerosis. Patient reports he was recently just admitted back in December for urinary tract infection. Patient started on ceftriaxone and urinalysis was sent for culture. Patient with weakness will consult PT/OT therapy for evaluation. Patient was febrile and patient with mild acute kidney injury and urinalysis was evaluated with small leukocytes with concerns for other source of possible infection will consult ID. Influenza testing and Covid testing was negative. Labs on admission reveal no white blood count with a WBC of 5.1, hemoglobin is 13.9, platelets are 103, INR is 1.9, sodium is 136, potassium 4.6, BUN 30, creatinine 1.99, magnesium 1.9. Patient was admitted for urinary tract infection and weakness. Review Of Systems: Constitutional: Reports fever, no chills, no night sweats. No weight change. Reports increased weakness, fatigue . No daytime sleepiness. EENT: No headache. No blurred vision or double vision, no loss of vision. No loss of Hearing, no ringing in the ears, no dizziness. No nasal drainage or congestion. No epistaxis. No sore throat. Lungs: No shortness of breath, cough, no sputum production. No wheezing. Cardiovascular: No chest pain, no lower extremity edema. No palpitations. No paroxysmal nocturnal dyspnea. No orthopnea. No lightheadedness or dizziness. No syncopal episodes. Abdominal: No abdominal pain. No nausea, vomiting. No diarrhea. No constipation. No bloody or tarry stools.. No loss of appetite. Reports decreased appetite and not drinking much Genitourinary: Reports dysuria with decreased output, denies increased frequency, urgency. Reports chronic urinary retention and bladder emptying, reports he straight caths 4 times daily. Musculoskeletal: Reports myalgias. No muscle weakness, or gait dysfunction, no frequent falls. No back pain. No neck pain. Integumentary: No wounds, no lesions. No rash or pruritus. No unusual bruising. No change in hair or nails. Neurologic: No aphasia. No facial droop. No change in mentation. No head injury. No headache. No paralysis. No paresthesia. Psychiatric: No depression. No anxiety. No mood swings. Endocrine: No abnormal blood sugars. No weight change. No excessive sweating or thirst. No cold intolerance. PHYSICAL EXAMINATION: GENERAL: The patient is alert and oriented x4, then built, ill-appearing elderly male HEENT: Pupils are round and equally reacting to light. EOMI. no scleral icterus. No conjunctival pallor. Normocephalic, atraumatic. No pharyngeal erythema. No thyromegaly. CARDIOVASCULAR: S1 and S2 muffled PULMONARY: diminished breath sounds bilaterally with no wheezing or rhonchi noted. ABDOMEN: soft. Nontender on exam. non-distended, normoactive bowel sounds. No palpable organomegaly. MUSCULOSKELETAL: No joint swelling or deformity. EXTREMITIES: No cyanosis, clubbing, or pedal edema. NEUROLOGICAL: Gross neurological examination did not reveal any focal deficits. Diffuse weakness SKIN: No rashes. Assessment: Fevers with generalized weakness, possibly secondary to an acute urinary tract infection, present on admission although suspicion is low as urinalysis is not impressive for urinary tract infection Generalized weakness with gait dysfunction Acute kidney injury, possibly secondary to poor oral intake and dehydration History of atrial fibrillation maintained on Coumadin History of prostate cancer History of CVA/TIA Hyperlipidemia Hypertension Osteoarthritis Self caths 4 times daily History of chronic mild bilateral hydronephrosis follows with urology outpatient GI prophylaxis DVT prophylaxis Full code Plan: Recommend to continue with current medications and home medications have been resumed. patient maintained on gentle IV hydration and repeat labs are pending. Patient was recently hospitalized and admitted and discharged for urinary tract infection was evaluated by urology at that time as he is known to them with chronic mild bilateral hydronephrosis due to bladder not emptying completely. Patient reports he self caths 4 times daily and has been noticing a decreased output. Patient reports he has not been feeling well with increased weakness and gait dysfunction and has not been drinking very much either. Urinalysis reviewed although not impressive of urinary tract infection with mild leukocytes concern for possible other source of infection as patient did have fevers will obtain blood cultures and consult infectious disease. Appreciate input and recommendations.. Recommend to continue with gentle IV hydration, follow-up on labs, await PT/OT therapy evaluation and await ID consultation. The impression and plan of care has been dictated by Vivian Childs, nurse practitioner as directed. Dr. Ck CARBAJAL I have performed a history and examination and MDM of this patient, discussed the same with the dictator, and agree with the dictator's assessment and plan as written ,documented as a scribe. Based on total visit time, I have performed more than 50% of the visit. Any additional findings or plans will be noted. Past Medical History Past Medical History: Atrial Fibrillation, Cancer, CVA/TIA, Hyperlipidemia, Hypertension, Osteoarthritis (OA), Prostate Disorder, Thyroid Disorder Additional Past Medical History / Comment(s): MS, hx. prostate cancer 2014-had radiation. Generator change-01/14/2019 PACEMAKER ONLY, NO DEFIBRILLATOR Last Myocardial Infarction Date:: unk DATE History of Any Multi-Drug Resistant Organisms: None Reported Past Surgical History: Back Surgery, Heart Catheterization, Hernia Repair, Pacemaker Additional Past Surgical History / Comment(s): PACEMAKER, Generator change- 01/14/2019 Past Anesthesia/Blood Transfusion Reactions: No Reported Reaction Type of Cardiac Device: Permanent Pacemaker Device Placement Date:: 05/02/11 Past Psychological History: No Psychological Hx Reported Smoking Status: Never smoker Past Alcohol Use History: Occasional Past Drug Use History: None Reported - Past Family History Mother Family Medical History: No Reported History Sister(s) Family Medical History: Cancer Additional Family Medical History / Comment(s): melanoma Medications and Allergies Home Medications Medication Instructions Recorded Confirmed Type Aspirin 81 mg PO DAILY@0700 09/02/13 02/24/22 History Baclofen [Lioresal] 10 mg PO TID@0700,1500,2300 09/02/13 02/24/22 History Digoxin [Lanoxin] 125 mcg PO HS@229909/02/13 02/24/22 History Isosorbide Mononitrate [Imdur] 60 mg PO HS@2300 09/02/13 02/24/22 History Simvastatin [Zocor] 40 mg PO HS@182909/02/13 02/24/22 History Warfarin [Coumadin] 2.5 mg PO SA@182909/02/13 02/24/22 History ramipriL [Altace] 10 mg PO DAILY@182909/02/13 02/24/22 History Warfarin [Coumadin] 1.25 mg PO SUMOTUWETHFR@182903/06/18 02/24/22 History Tamsulosin [Flomax] 0.4 mg PO BID@0700,1830 09/03/19 02/24/22 History Gabapentin [Neurontin] 300 mg PO TID@0700,1500,2300 04/20/20 02/24/22 History Metoprolol Tartrate [Lopressor] 75 mg PO BID@0700,1830 04/20/20 02/24/22 History Methenamine Hippurate 1 gm PO BID@0700,18301/14/22 02/24/22 History cefUROXime axetiL [Ceftin] 500 mg PO BID 3 Days #6 tab 01/17/22 02/24/22 Rx Allergies Allergy/AdvReac Type Severity Reaction Status Date / Time No Known Allergies Allergy Verified 02/24/22 08:02 Physical Exam Vitals: Vital Signs Temp Pulse Resp BP Pulse Ox 02/24/22 06:50 97.1 F L 68 18 119/74 98 02/24/22 01:54 99.7 F H 64 18 114/64 98 02/23/22 23:03 100.9 F H 69 20 143/106 96 Intake and Output 02/23/22 02/24/22 02/24/22 22:59 06:59 14:59 Other: Weight 77.111 kg Results CBC & Chem 7: 02/23/22 23:17 02/23/22 23:17 Labs: Abnormal Lab Results - Last 24 Hours (Table) 02/23/22 02/23/22 02/23/22 Range/Units 23:17 23:17 23:17 Plt Count 103 L (150-450) k/uL Lymphocytes # 0.3 L (1.0-4.8) k/uL PT 19.2 H (9.0-12.0) sec INR 1.9 H (<1.2) Sodium 136 L (137-145) mmol/L BUN 30 H (9-20) mg/dL Creatinine 1.99 H (0.66-1.25) mg/dL Glucose 121 H (74-99) mg/dL Urine Protein (Negative) Urine Blood (Negative) Ur Leukocyte Esterase (Negative) Urine RBC (0-5) /hpf Urine WBC (0-5) /hpf 02/23/22 Range/Units 23:52 Plt Count (150-450) k/uL Lymphocytes # (1.0-4.8) k/uL PT (9.0-12.0) sec INR (<1.2) Sodium (137-145) mmol/L BUN (9-20) mg/dL Creatinine (0.66-1.25) mg/dL Glucose (74-99) mg/dL Urine Protein Trace H (Negative) Urine Blood Small H (Negative) Ur Leukocyte Esterase Small H (Negative) Urine RBC 8 H (0-5) /hpf Urine WBC 28 H (0-5) /hpf Thrombosis Risk Factor Assmnt - DVT/VTE Prophylaxis DVT/VTE Prophylaxis: Pharmacologic Prophylaxis ordered Assessment and Plan Time with Patient: Greater than 30
[2022-02-24 13:38] LABS: INR 1.7 (<1.2); Prothrombin Time 17.7 sec (9.0-12.0)
[2022-02-24 13:50] LABS: African American GFR (CKD) 44 (>60 ml/min/1.73 sqM); Anion Gap 11 mmol/L; Blood Urea Nitrogen 23 mg/dL (9-20); Calcium 8.6 mg/dL (8.4-10.2); Carbon Dioxide 25 mmol/L (22-30); Chloride 103 mmol/L (98-107); Glucose 118 mg/dL (74-99); Non-African American GFR(CKD) 38 (>60 ml/min/1.73 sqM); Potassium 4.8 mmol/L (3.5-5.1); Sodium 139 mmol/L (137-145)
--- NOTE | 2022-02-24 13:54 | XR ---
EXAMINATION TYPE: XR chest 1V portable DATE OF EXAM: 02/24/2022 COMPARISON: 01/15/2020 HISTORY: Fever and shortness of breath TECHNIQUE: Single frontal view of the chest is obtained. FINDINGS: The heart is enlarged intracardiac device. Chronic appearing thoracic osteopenia and a par tial eventration. Atherosclerotic changes AC joint arthropathy noted. IMPRESSION: COPD with mild cardiomegaly similar to prior exam correlate clinically
[2022-02-24] MEDS: BACLOFEN 10 MG TAB PO SCH ×2 (14:37→21:25)
[2022-02-24] MEDS: GABAPENTIN 300 MG CAP PO SCH ×2 (14:37→21:24)
[2022-02-24] MEDS ORDERED: WARFARIN 2 MG TAB PO ONE (18:00)
[2022-02-24] MEDS: METOPROLOL TARTRATE 50 MG TAB PO SCH (18:53)
[2022-02-24] MEDS: TAMSULOSIN 0.4 MG CAP.ER.24H PO SCH (18:53)
[2022-02-24] MEDS: ATORVASTATIN 20 MG TAB PO SCH (18:53)
[2022-02-24] MEDS: lisinopriL 20 MG TAB PO SCH (18:56)
[2022-02-24] MEDS: NON FORMULARY DRUG (Methenamine Hippurate [Methenamine Hippurate] 1 GM Tablet) PO SCH (18:59)
[2022-02-24] MEDS: ISOSORBIDE MONONITRATE ER 60 MG TAB.ER.24H PO SCH (21:25)
[2022-02-24] MEDS: DIGOXIN 125 MCG TAB PO SCH (22:35)
[2022-02-25] MEDS: ASPIRIN 81 MG PO SCH (10:01)
[2022-02-25] MEDS: SODIUM CHLORIDE 0.9% 1,000 ML IV SCH ×2 (10:01→18:35)
[2022-02-25] MEDS: BACLOFEN 10 MG TAB PO SCH ×3 (10:01→20:57)
[2022-02-25] MEDS: METOPROLOL TARTRATE 50 MG TAB PO SCH ×2 (10:02→17:54)
[2022-02-25] MEDS: NON FORMULARY DRUG (Methenamine Hippurate [Methenamine Hippurate] 1 GM Tablet) PO SCH ×2 (10:02→19:02)
[2022-02-25] MEDS: GABAPENTIN 300 MG CAP PO SCH ×3 (10:02→20:57)
[2022-02-25] MEDS: TAMSULOSIN 0.4 MG CAP.ER.24H PO SCH ×2 (10:02→17:54)
--- NOTE | 2022-02-25 13:00 | P.CONS ---
History of Present Illness - Reason for Consult Consult date: 02/24/22 - History of Present Illness Patient is a 81-year-old male with multiple comorbidities including atrial fibrillation hypertension hyperlipidemia history of prostate cancer treated with radiation therapy in 2014 presenting to the ER for evaluation of generalized weakness that has been getting worse for the last day or 2 before presentation to the hospital patient denies having any high-grade fever and did have some chills denies having any URI symptoms no chest pain or shortness of breath or cough no nausea vomiting no abdominal pain no diarrhea patient has not significant difficulty urination or any hematuria no suprapubic or flank pain patient on presentation to the hospital have fever 100.9 F patient was not hypoxic or need for supplemental oxygen patient did have normal white count BUN/creatinine has been mildly elevated liver enzymes are normal patient did have a positive UA COVID testing was negative influenza was negative patient did have a chest x-ray COPD with mild cardiomegaly no acute infiltrate patient was diagnosed with a urinary tract infection started on Rocephin has been [facility] infectious disease was consulted for further management of antibiotic therapy Past Medical History Past Medical History: Atrial Fibrillation, Cancer, CVA/TIA, Hyperlipidemia, Hypertension, Osteoarthritis (OA), Prostate Disorder, Thyroid Disorder Additional Past Medical History / Comment(s): MS, hx. prostate cancer 2014-had radiation. Generator change-01/14/2019 PACEMAKER ONLY, NO DEFIBRILLATOR Last Myocardial Infarction Date:: unk DATE History of Any Multi-Drug Resistant Organisms: None Reported Past Surgical History: Back Surgery, Heart Catheterization, Hernia Repair, Pacemaker Additional Past Surgical History / Comment(s): PACEMAKER, Generator change- 01/14/2019 Past Anesthesia/Blood Transfusion Reactions: No Reported Reaction Type of Cardiac Device: Permanent Pacemaker Device Placement Date:: 05/02/11 Past Psychological History: No Psychological Hx Reported Smoking Status: Never smoker Past Alcohol Use History: Occasional Past Drug Use History: None Reported - Past Family History Mother Family Medical History: No Reported History Sister(s) Family Medical History: Cancer Additional Family Medical History / Comment(s): melanoma Father Family Medical History: Myocardial Infarction ([place]) Medications and Allergies Home Medications Medication Instructions Recorded Confirmed Type Aspirin 81 mg PO DAILY@0700 09/02/13 02/24/22 History Baclofen [Lioresal] 10 mg PO TID@0700,1500,2300 09/02/13 02/24/22 History Digoxin [Lanoxin] 125 mcg PO HS@229909/02/13 02/24/22 History Isosorbide Mononitrate [Imdur] 60 mg PO HS@229909/02/13 02/24/22 History Simvastatin [Zocor] 40 mg PO HS@182909/02/13 02/24/22 History Warfarin [Coumadin] 2.5 mg PO SA@182909/02/13 02/24/22 History ramipriL [Altace] 10 mg PO DAILY@182909/02/13 02/24/22 History Warfarin [Coumadin] 1.25 mg PO SUMOTUWETHFR@182903/06/18 02/24/22 History Tamsulosin [Flomax] 0.4 mg PO BID@0700,182909/03/19 02/24/22 History Gabapentin [Neurontin] 300 mg PO TID@0700,1500,23004/20/20 02/24/22 History Metoprolol Tartrate [Lopressor] 75 mg PO BID@0700,182904/20/20 02/24/22 History Methenamine Hippurate 1 gm PO BID@0700,1830 01/14/22 02/24/22 History cefUROXime axetiL [Ceftin] 500 mg PO BID 3 Days #6 tab 01/17/22 02/24/22 Rx Allergies Allergy/AdvReac Type Severity Reaction Status Date / Time No Known Allergies Allergy Verified 02/24/22 08:02 Physical Exam Vitals: Vital Signs Temp Pulse Resp BP Pulse Ox 02/24/22 14:24 98.8 F 80 16 166/90 96 02/24/22 13:12 85 16 119/74 98 02/24/22 06:50 97.1 F L 68 18 119/74 98 02/24/22 01:54 99.7 F H 64 18 114/64 98 02/23/22 23:03 100.9 F H 69 20 143/106 96 Intake and Output 02/23/22 02/24/22 02/24/22 22:59 06:59 14:59 Other: Weight 77.111 kg Results CBC & Chem 7: 02/23/22 23:17 02/24/22 13:04 Labs: Abnormal Lab Results - Last 24 Hours (Table) 02/23/22 02/23/22 02/23/22 Range/Units 23:17 23:17 23:17 Plt Count 103 L (150-450) k/uL Lymphocytes # 0.3 L (1.0-4.8) k/uL PT 19.2 H (9.0-12.0) sec INR 1.9 H (<1.2) Sodium 136 L (137-145) mmol/L BUN 30 H (9-20) mg/dL Creatinine 1.99 H (0.66-1.25) mg/dL Glucose 121 H (74-99) mg/dL Urine Protein (Negative) Urine Blood (Negative) Ur Leukocyte Esterase (Negative) Urine RBC (0-5) /hpf Urine WBC (0-5) /hpf 02/23/22 02/24/22 02/24/22 Range/Units 23:52 13:04 13:04 Plt Count (150-450) k/uL Lymphocytes # (1.0-4.8) k/uL PT 17.7 H (9.0-12.0) sec INR 1.7 H (<1.2) Sodium (137-145) mmol/L BUN 23 H (9-20) mg/dL Creatinine 1.67 H (0.66-1.25) mg/dL Glucose 118 H (74-99) mg/dL Urine Protein Trace H (Negative) Urine Blood Small H (Negative) Ur Leukocyte Esterase Small H (Negative) Urine RBC 8 H (0-5) /hpf Urine WBC 28 H (0-5) /hpf Microbiology - Last 24 Hours (Table) 02/23/22 23:52 Urine Culture - Preliminary Urine,Voided Assessment and Plan Plan: 1patient presented to hospital generalized weakness patient did have a low- grade fever did have a positive urine in this patient who did have a history of prostate cancer treated with radiation therapy likely urinary source for his fever and possible UTI as currently no other obvious focus of infection chest x- ray was negative patient do not have any respiratory symptoms abdominal soft on clinical examination evidence of any cellulitis or joint swelling. 2Rocephin 1 g daily to continue while waiting for the culture to finalize. We will follow on clinical condition and cultures to further adjust medication if needed Thank you for this consultation will follow this patient along with you Time with Patient: Greater than 30
[2022-02-25] MEDS: PANTOPRAZOLE 40 MG TABLET PO SCH (14:11)
--- NOTE | 2022-02-25 14:23 | PN ---
PROGRESS NOTE DATE OF SERVICE: 02/25/2022 SUBJECTIVE: This 81-year-old gentleman, who was admitted with fever and weakness secondary to UTI is also being closely monitored at this time. No chest pain. No palpitations. No fever. Urine culture is showing coagulase-negative Staph. OBJECTIVE: VITAL SIGNS: Pulse is 78, blood pressure 175/70, respirations 18. CHEST: Clear to auscultation. CARDIOVASCULAR: S1, S2. ABDOMEN: Soft. NERVOUS SYSTEM: Nonfocal. Severely weak and emaciated. LABORATORY DATA: Creatinine 1.67. ASSESSMENT: 1. Generalized weakness. 2. Possible acute urinary tract infection. 3. Acute kidney injury. 4. Atrial fibrillation. 5. Hypertension. 6. Hyperlipidemia. 7. Gait dysfunction. 8. FULL CODE. RECOMMENDATIONS: In this 81-year-old gentleman, who presented with multiple complex medical issues, we will monitor the patient closely. Continue with the antibiotics. PT/OT evaluation, possible ECF rehab. DVT prophylaxis. See orders for further details. Further recommendations to follow. MMODL / IJN: [id number] /
[2022-02-25 15:45] LABS: INR 1.7 (<1.2); Prothrombin Time 17.2 sec (9.0-12.0)
[2022-02-25] MEDS: lisinopriL 20 MG TAB PO SCH (17:51)
[2022-02-25] MEDS: ATORVASTATIN 20 MG TAB PO SCH (17:54)
[2022-02-25 18:00] VITALS: BMI 23.0
[2022-02-25] MEDS ORDERED: WARFARIN 2.5 MG TAB PO ONE (18:00)
[2022-02-25] MEDS: ISOSORBIDE MONONITRATE ER 60 MG TAB.ER.24H PO SCH (20:57)
[2022-02-25] MEDS: DIGOXIN 125 MCG TAB PO SCH (20:57)
--- NOTE | 2022-02-25 23:57 | P.PN ---
Subjective Progress Note Date: 02/25/22 Principal diagnosis: Urinary tract infection Patient is a 81 year male with multiple comorbidities including posttreatment cancer treated with radiation therapy present hospitalization denies weakness patient is to have fever positive UA concerning for urinary tract infection. On today's evaluation that is 02/25/2022, the patient denies having any fever or chills, feeling slightly better breathing comfortably with chest pain or shortness of cough no nausea no vomiting no abdominal pain or diarrhea Objective - Vital Signs Vital signs: Vital Signs Temp 98.2 F 02/24/22 21:00 Pulse 78 02/24/22 21:00 Resp 16 02/24/22 21:00 BP 175/71 02/24/22 21:00 Pulse Ox 96 02/24/22 21:00 FiO2 21 02/24/22 19:45 Intake & Output 02/24/22 02/25/22 02/25/22 18:59 06:59 18:59 Other: Voiding Method Bedside Commode Self-Catheterization Urinal Self-Catheterization - Exam GENERAL DESCRIPTION: An elderly male lying in bed in no distress RESPIRATORY SYSTEM: Unlabored breathing , decreased breath sounds at bases HEART: S1 S2 regular rate and rhythm , ABDOMEN: Soft , no tenderness EXTREMITIES: No edema feet - Labs CBC & Chem 7: 02/23/22 23:17 02/24/22 13:04 Labs: Abnormal Lab Results - Last 24 Hours (Table) 02/24/22 02/24/22 Range/Units 13:04 13:04 PT 17.7 H (9.0-12.0) sec INR 1.7 H (<1.2) BUN 23 H (9-20) mg/dL Creatinine 1.67 H (0.66-1.25) mg/dL Glucose 118 H (74-99) mg/dL Microbiology - Last 24 Hours (Table) 02/23/22 23:52 Urine Culture - Preliminary Urine,Voided Coagulase Negative Staph Assessment and Plan (1) UTI (urinary tract infection) Current Visit: Yes Status: Acute Code(s): N39.0 - URINARY TRACT INFECTION, SITE NOT SPECIFIED SNOMED Code(s): 01103666 Plan: 1patient presented to hospital generalized weakness patient did have a low- grade fever did have a positive urine in this patient who did have a history of prostate cancer treated with radiation therapy likely urinary source for his f ever and possible UTI as currently no other obvious focus of infection chest x- ray was negative patient do not have any respiratory symptoms abdominal soft on clinical examination evidence of any cellulitis or joint swelling. 2patient to continue with Rocephin 1 g daily to continue while waiting for the culture to finalize, we will obtain ultrasound of the kidneys to make sure no evidence of any obstructive uropathy. Time with Patient: Less than 30
[2022-02-26 01:29] LABS: Appearance,Urine Clear (Clear); Bilirubin,Urine Negative (Negative); Blood,Urine Moderate (Negative); Color,Urine Yellow; Glucose,Urine (UA) Negative (Negative); Ketones,Urine Negative (Negative); Leukocyte Esterase,Urine Negative (Negative); Mucus,Urine Rare /hpf; Nitrite,Urine Negative (Negative); PH, Urine 6.5 (5.0-8.0); Protein,Urine 1+ (Negative); RBC,Urine 13 /hpf (0-5); Specific Gravity,Urine 1.016 (1.001-1.035); Squamous Epithelial Cell,Urine <1 /hpf (0-4); Urobilinogen,Urine <2.0 mg/dL (<2.0); WBC,Urine 1 /hpf (0-5)
[2022-02-26] MEDS: METOPROLOL TARTRATE 50 MG TAB PO SCH ×2 (06:32→17:52)
[2022-02-26] MEDS: SODIUM CHLORIDE 0.9% 1,000 ML IV SCH ×2 (06:33→22:31)
[2022-02-26] MEDS: PANTOPRAZOLE 40 MG TABLET PO SCH (06:33)
[2022-02-26] MEDS: BACLOFEN 10 MG TAB PO SCH ×3 (06:33→22:30)
[2022-02-26] MEDS: ASPIRIN 81 MG PO SCH (06:33)
[2022-02-26] MEDS: GABAPENTIN 300 MG CAP PO SCH ×3 (06:33→22:30)
[2022-02-26] MEDS: TAMSULOSIN 0.4 MG CAP.ER.24H PO SCH ×2 (06:33→17:52)
[2022-02-26] MEDS: NON FORMULARY DRUG (Methenamine Hippurate [Methenamine Hippurate] 1 GM Tablet) PO SCH ×2 (06:34→17:52)
[2022-02-26 06:50] LABS: ALT 25 U/L (4-49); AST 48 U/L (17-59); African American GFR (CKD) 46 (>60 ml/min/1.73 sqM); Albumin 3.6 g/dL (3.5-5.0); Albumin/Globulin Ratio 1.8; Alkaline Phosphatase 47 U/L (38-126); Anion Gap 10 mmol/L; Blood Urea Nitrogen 23 mg/dL (9-20); Carbon Dioxide 23 mmol/L (22-30); Chloride 100 mmol/L (98-107); Glucose 115 mg/dL (74-99); Non-African American GFR(CKD) 40 (>60 ml/min/1.73 sqM); Potassium 4.2 mmol/L (3.5-5.1); Sodium 133 mmol/L (137-145); Total Bilirubin 0.8 mg/dL (0.2-1.3); Total Protein 5.6 g/dL (6.3-8.2)
--- NOTE | 2022-02-26 09:03 | US ---
EXAMINATION TYPE: US kidneys/renal and bladder DATE OF EXAM: 02/26/2022 COMPARISON: CT, US CLINICAL HISTORY: uti and bacteremia. UTI and bacteremia. EXAM MEASUREMENTS: Right Kidney: 13.8 x 6.0 x 6.1 cm Left Kidney: 9.3 x 4.3 x 4.9 cm Right Kidney: Enlarged. -Anechoic area seen mid-lower: 2.5 x 2.5 x 2.6 cm. -Anechoic connecting area seen upper pole-possible dilated upper collecting system: 1.9 x 0.8 x 1.2 c m likely a peripelvic renal cysts. Left Kidney: Limited visibility. Multiple anechoic areas seen. Largest measures: 2.9 x 2.3 x 2.4 cm. Bladder: Not fully distended- limited evaluation for jets. Bilateral Jets seen: Possible left jet seen. IMPRESSION: 1. No evidence of obstructive uropathy. 2. Bilateral renal cysts.
[2022-02-26 10:16] LABS: Basophils # (A) 0.01 X 10*3/uL (0.00-0.10); Basophils % (A) 0.3 %; Eosinophils # (A) 0 X 10*3/uL (0.04-0.35); Eosinophils % (A) 0 %; HCT 40.1 % (39.6-50.0); HGB 13.1 g/dL (13.0-17.0); Immature Grans, Automated 1.7 %; Lymphocytes # (A) 0.34 X 10*3/uL (0.90-5.00); Lymphocytes % (A) 11.5 %; MCH 28.1 pg (27.0-32.0); MCHC 32.7 g/dL (32.0-37.0); MCV 86.1 fL (80.0-97.0); Mean Platelet Volume 11.1 fL (9.5-12.2); Monocytes # (A) 0.52 X 10*3/uL (0.20-1.00); Monocytes % (A) 17.6 %; NRBC Per 100 WBC 0 /100 WBCS (0.0-0.0); Neutrophils # (A) 2.03 X 10*3/uL (1.80-7.70); Neutrophils % (A) 68.9 %; Platelet Count 75 X 10*3/uL (140-440); RBC 4.66 X 10*6/uL (4.40-5.60); WBC 2.95 X 10*3/uL (4.50-10.00)
[2022-02-26 10:17] LABS: Immature Platelet Fraction 6.8 % (1.1-6.1)
[2022-02-26 11:15] LABS: INR 1.54 (0.90-1.11)
[2022-02-26] MEDS: LEVOFLOXACIN 500 MG TAB PO SCH (15:59)
[2022-02-26] MEDS: ATORVASTATIN 20 MG TAB PO SCH (17:52)
[2022-02-26] MEDS: lisinopriL 20 MG TAB PO SCH (17:52)
[2022-02-26] MEDS ORDERED: WARFARIN 2.5 MG TAB PO ONE (18:00)
[2022-02-26] MEDS: ISOSORBIDE MONONITRATE ER 60 MG TAB.ER.24H PO SCH (22:30)
[2022-02-26] MEDS: DIGOXIN 125 MCG TAB PO SCH (22:30)
--- NOTE | 2022-02-27 06:47 | PN ---
PROGRESS NOTE DATE OF SERVICE: 02/26/2022 SUBJECTIVE: This is a 81-year-old gentleman who was admitted with weakness secondary to UTIs, complain of extreme weakness. The patient is used to straight cath, but the patient is reporting even that is weak at this time. No chest pain, no palpitations. The urine culture showed Staph epidermidis. PHYSICAL EXAMINATION: VITAL SIGNS: The pulse is 65, blood pressure 149/73, and respirations 18. CHEST: Clear to auscultation. ABDOMEN: Soft. NERVOUS SYSTEM: Diffuse weakness present. LABS: INR 1.5, rest of the labs are reviewed, cultures reviewed. ASSESSMENT: 1. Generalized weakness. 2. Possible acute urinary tract infection present on admission. 3. Acute kidney injury. 4. Atrial fibrillation. 5. Hypertension. 6. Hyperlipidemia. 7. Gait dysfunction. 8. Full code. RECOMMENDATIONS: Recommended to continue current medications, symptomatic treatment. Otherwise, continue the antibiotics, PT OT evaluation and possible ECF rehab. Guarded prognosis. Further recommendations to follow. MMODL / IJN: [id number] /
[2022-02-27] MEDS: GABAPENTIN 300 MG CAP PO SCH ×3 (08:10→22:30)
[2022-02-27] MEDS: METOPROLOL TARTRATE 50 MG TAB PO SCH ×2 (08:10→17:34)
[2022-02-27] MEDS: LEVOFLOXACIN 500 MG TAB PO SCH (08:10)
[2022-02-27] MEDS: BACLOFEN 10 MG TAB PO SCH ×3 (08:10→22:30)
[2022-02-27] MEDS: PANTOPRAZOLE 40 MG TABLET PO SCH (08:11)
[2022-02-27] MEDS: NON FORMULARY DRUG (Methenamine Hippurate [Methenamine Hippurate] 1 GM Tablet) PO SCH ×2 (08:11→17:07)
[2022-02-27] MEDS: ASPIRIN 81 MG PO SCH (08:11)
[2022-02-27] MEDS: TAMSULOSIN 0.4 MG CAP.ER.24H PO SCH ×2 (08:11→17:35)
[2022-02-27 10:50] LABS: African American GFR (CKD) 44.8 (60.0-200.0); BUN/Creat Ratio 15.12 Ratio (12.00-20.00); Blood Urea Nitrogen 25.1 mg/dL (9.0-27.0); Calcium 8.3 mg/dL (8.7-10.3); Carbon Dioxide 23.9 mmol/L (20.0-27.5); Non-African American GFR(CKD) 38.6 (60.0-200.0); Potassium 3.9 mmol/L (3.5-5.5)
[2022-02-27 10:57] LABS: INR 1.67 (0.90-1.11); Prothrombin Time 17.9 sec (9.9-11.9)
[2022-02-27 11:21] LABS: Basophils # (A) 0.01 X 10*3/uL (0.00-0.10); Basophils % (A) 0.4 %; Eosinophils # (A) 0.01 X 10*3/uL (0.04-0.35); Eosinophils % (A) 0.4 %; HCT 37.5 % (39.6-50.0); HGB 12.6 g/dL (13.0-17.0); Immature Grans, Automated 1.2 %; Immature Platelet Fraction 9.5 % (1.1-6.1); Lymphocytes % (A) 16.6 %; MCHC 33.6 g/dL (32.0-37.0); MCV 86.4 fL (80.0-97.0); Mean Platelet Volume 12.6 fL (9.5-12.2); Monocytes # (A) 0.62 X 10*3/uL (0.20-1.00); Monocytes % (A) 25.7 %; NRBC Per 100 WBC 0 /100 WBCS (0.0-0.0); Neutrophils # (A) 1.34 X 10*3/uL (1.80-7.70); Neutrophils % (A) 55.7 %; Platelet Count 58 X 10*3/uL (140-440); RBC 4.34 X 10*6/uL (4.40-5.60); RDW 13.9 % (11.5-14.5); WBC 2.41 X 10*3/uL (4.50-10.00)
--- NOTE | 2022-02-27 13:58 | P.PN ---
Subjective Progress Note Date: 02/27/22 This is a 81-year-old male who recently presented to the emergency department with increased weakness, fevers, and concerns for urinary tract infection. Patient does follow with urology outpatient with chronic mild bilateral hydronephrosis along with straight catheterization as patient does not have c omplete bladder emptying. Patient reports his urine output and weakness had been progressively getting worse over the last few days and developed some fevers and came here for further evaluation. Patient follows with Dr. Reyes in the outpatient setting with a past medical history of atrial fibrillation, prostate cancer post radiation, CVA, hyperlipidemia, hypertension, osteoarthritis, hypothyroidism, multiple sclerosis. Patient reports he was recently just admitted back in December for urinary tract infection. Patient started on ceftriaxone and urinalysis was sent for culture. Patient with weakness will consult PT/OT therapy for evaluation. Patient was febrile and patient with mild acute kidney injury and urinalysis was evaluated with small leukocytes with concerns for other source of possible infection will consult ID. Influenza testing and Covid testing was negative. Labs on admission reveal no white blood count with a WBC of 5.1, hemoglobin is 13.9, platelets are 103, INR is 1.9, sodium is 136, potassium 4.6, BUN 30, creatinine 1.99, magnesium 1.9. Patient was admitted for urinary tract infection and weakness. 02/27/2022 Patient is seen and evaluated in follow-up this morning continues with significant weakness currently maintained on IV antibiotics with infectious disease following. Urine culture finalized showing staph epidermidis. Ultrasound showing no evidence of obstructive uropathy with bilateral renal cysts. Patient is afebrile denies chest pain or shortness of breath. Patient is working with physical therapy with significant weakness recommending ECF and patient is agreeable. Case management following and arranging for ECF once stabilized and discharged. Patient denies any nausea or vomiting and is tolerating diet. Encouraged oral intake especially protein. Patient remains afebrile and white blood count within normal limits and repeat urinalysis was negative. Review of systems: Constitutional: No reports of fatigue, fever, or chills Cardiovascular: No reports of chest pain or palpitations Respiratory: No reports of shortness of breath or cough GI: No reports of nausea, vomiting, or diarrhea : No reports of dysuria or retention Neurovascular: No reports of weakness or numbness All medications have been reviewed PHYSICAL EXAMINATION: GENERAL: The patient is alert and oriented x4, then built, ill-appearing elderly male HEENT: Pupils are round and equally reacting to light. EOMI. no scleral icterus. No conjunctival pallor. Normocephalic, atraumatic. No pharyngeal erythema. No thyromegaly. CARDIOVASCULAR: S1 and S2 muffled PULMONARY: diminished breath sounds bilaterally with no wheezing or rhonchi noted. ABDOMEN: soft. Nontender on exam. non-distended, normoactive bowel sounds. No palpable organomegaly. MUSCULOSKELETAL: No joint swelling or deformity. EXTREMITIES: No cyanosis, clubbing, or pedal edema. NEUROLOGICAL: Gross neurological examination did not reveal any focal deficits. Diffuse weakness SKIN: No rashes. Assessment: Acute urinary tract infection, present on admission Generalized weakness with gait dysfunction Acute kidney injury, possibly secondary to poor oral intake and dehydration History of atrial fibrillation maintained on Coumadin History of prostate cancer History of CVA/TIA Hyperlipidemia Hypertension Osteoarthritis Self caths 4 times daily History of chronic mild bilateral hydronephrosis follows with urology outpatient GI prophylaxis DVT prophylaxis Full code Plan: Recommend to continue with current medications and home medications have been resumed. Infectious disease following an urine culture finalized showing Staphylococcus epidermidis and repeat urinalysis was negative. Ultrasound was reviewed and does not display any hydronephrosis. Will need to discuss with infectious disease about discharge planning and possible antibiotics on discharge. Patient continues with significant weakness recommend physical therapy daily and case management is following working on ECF. Plan is for [facility] once stabilized and discharged. Will discuss with infectious disease about discharge antibiotics with possible discharge in 24 hours. Encouraged oral intake and increased activity as tolerated. Will repeat labs in the a.m. with possible discharge in 24-48 hours. Due to multiple complex medical issues, prognosis is guarded. The impression and plan of care has been dictated by Vivian Childs, nurse practitioner as directed. Dr. Juan MD I have performed a history and examination and MDM of this patient, discussed the same with the dictator, and agree with the dictator's assessment and plan as written ,documented as a scribe. Based on total visit time, I have performed more than 50% of the visit. Any additional findings or plans will be noted. Objective - Vital Signs Vital signs: Vital Signs Temp 98.7 F 02/27/22 04:32 Pulse 79 02/27/22 04:32 Resp 18 02/27/22 04:32 BP 130/63 02/27/22 04:32 Pulse Ox 94 L 02/27/22 04:32 FiO2 21 02/24/22 19:45 Intake & Output 02/26/22 02/27/22 02/27/22 18:59 06:59 18:59 Intake Total 50 300 Output Total 800 750 825 Balance -750 450 -825 Intake: Intake, IV Titration 50 Amount cefTRIAXone 1 gm In 50 Sodium Chloride 0.9% 50 ml @ 100 mls/hr IVPB Q24H REPLACED BY [facility] Rx#:[id number] Oral 300 Output: Urine 800 750 825 Other: Voiding Method Self-Catheterization Self-Catheterization Self-Catheterization # Bowel Movements 1 1 - Labs CBC & Chem 7: 02/27/22 06:55 02/27/22 06:55 Labs: Abnormal Lab Results - Last 24 Hours (Table) 02/26/22 02/27/22 02/27/22 Range/Units 06:06 06:55 06:55 PT 17.0 H 17.9 H (9.9-11.9) sec INR 1.54 H 1.67 H (0.90-1.11) Sodium 134 L (135-145) mmol/L Anion Gap 9.00 L (10.00-18.00) mmol/L Creatinine 1.7 H (0.6-1.5) mg/dL Est GFR (CKD-EPI)AfAm 44.8 L (60.0-200.0) Est GFR (CKD-EPI)NonAf 38.6 L (60.0-200.0) Glucose 115 H (70-110) mg/dL Calcium 8.3 L (8.7-10.3) mg/dL Microbiology - Last 24 Hours (Table) 02/24/22 15:56 Blood Culture - Preliminary Blood No Growth after 48 hours 02/23/22 23:52 Urine Culture - Final Urine,Voided Staphylococcus epidermidis
[2022-02-27] MEDS: SODIUM CHLORIDE 0.9% 1,000 ML IV SCH ×2 (17:05→22:30)
[2022-02-27] MEDS: lisinopriL 20 MG TAB PO SCH (17:35)
[2022-02-27] MEDS: ATORVASTATIN 20 MG TAB PO SCH (17:35)
[2022-02-27] MEDS ORDERED: WARFARIN 2.5 MG TAB PO ONE (18:00)
[2022-02-27] MEDS: ISOSORBIDE MONONITRATE ER 60 MG TAB.ER.24H PO SCH (22:30)
[2022-02-27] MEDS: DIGOXIN 125 MCG TAB PO SCH (22:30)
--- NOTE | 2022-02-27 23:22 | P.PN ---
Subjective Progress Note Date: 02/26/22 Principal diagnosis: Urinary tract infection Patient is a 81 year male with multiple comorbidities including posttreatment cancer treated with radiation therapy present hospitalization denies weakness patient is to have fever positive UA concerning for urinary tract infection. On today's evaluation that is 02/26/2022, the patient remains to be afebrile, the patient is feeling slightly better, the patient is breathing comfortably with chest pain or shortness of cough no nausea no vomiting no abdominal pain or diarrhea Objective - Vital Signs Vital signs: Vital Signs Temp 98.7 F 02/26/22 11:52 Pulse 75 02/26/22 11:52 Resp 18 02/26/22 11:52 BP 105/62 02/26/22 11:52 Pulse Ox 94 L 02/26/22 11:52 FiO2 21 02/24/22 19:45 Intake & Output 02/25/22 02/26/22 02/26/22 19:59 06:59 18:59 Output Total Balance Weight Output: Urine Post Void Residual Other: Voiding Method Self-Catheterization - Exam GENERAL DESCRIPTION: An elderly male lying in bed in no distress RESPIRATORY SYSTEM: Unlabored breathing , decreased breath sounds at bases HEART: S1 S2 regular rate and rhythm , ABDOMEN: Soft , no tenderness EXTREMITIES: No edema feet - Labs CBC & Chem 7: 02/27/22 06:55 02/27/22 06:55 Labs: Abnormal Lab Results - Last 24 Hours (Table) 02/26/22 02/26/22 02/26/22 Range/Units 01:00 EST 06:06 06:06 WBC 2.95 L (4.50-10.00) X 10*3/uL Plt Count 75 L (140-440) X 10*3/uL Immature Gran # 0.05 H (0.00-0.04) X 10*3/uL Lymphocytes # 0.34 L (0.90-5.00) X 10*3/uL Eosinophils # 0 L (0.04-0.35) X 10*3/uL Immature Plt Fraction 6.8 H (1.1-6.1) % PT 17.0 H (9.9-11.9) sec INR 1.54 H (0.90-1.11) Sodium (137-145) mmol/L BUN (9-20) mg/dL Creatinine (0.66-1.25) mg/dL Glucose (74-99) mg/dL Calcium (8.4-10.2) mg/dL C-Reactive Protein (<1.0) mg/dL Total Protein (6.3-8.2) g/dL Urine Protein 1+ H (Negative) Urine Blood Moderate H (Negative) Urine RBC 13 H (0-5) /hpf Urine Mucus Rare H (None) /hpf 02/26/22 Range/Units 06:06 WBC (4.50-10.00) X 10*3/uL Plt Count (140-440) X 10*3/uL Immature Gran # (0.00-0.04) X 10*3/uL Lymphocytes # (0.90-5.00) X 10*3/uL Eosinophils # (0.04-0.35) X 10*3/uL Immature Plt Fraction (1.1-6.1) % PT (9.9-11.9) sec INR (0.90-1.11) Sodium 133 L (137-145) mmol/L BUN 23 H (9-20) mg/dL Creatinine 1.62 H (0.66-1.25) mg/dL Glucose 115 H (74-99) mg/dL Calcium 8.0 L (8.4-10.2) mg/dL C-Reactive Protein 4.0 H (<1.0) mg/dL Total Protein 5.6 L (6.3-8.2) g/dL Urine Protein (Negative) Urine Blood (Negative) Urine RBC (0-5) /hpf Urine Mucus (None) /hpf Microbiology - Last 24 Hours (Table) 02/23/22 23:52 Urine Culture - Final Urine,Voided Staphylococcus epidermidis 02/24/22 15:56 Blood Culture - Preliminary Blood No Growth after 24 hours Assessment and Plan (1) UTI (urinary tract infection) Current Visit: Yes Status: Acute Code(s): N39.0 - URINARY TRACT INFECTION, SITE NOT SPECIFIED SNOMED Code(s): 21133271 Plan: 1patient presented to hospital generalized weakness patient did have a low- grade fever did have a positive urine in this patient who did have a history of prostate cancer treated with radiation therapy likely urinary source for his fever and possible UTI as currently no other obvious focus of infection chest x- ray was negative patient do not have any respiratory symptoms abdominal soft on clinical examination evidence of any cellulitis or joint swelling. 2patient currently is currently growing coag negative staph ultrasound was negative for any structural abnormality 3we will discontinue Rocephin and start the patient on Levaquin and repeat a UA Time with Patient: Less than 30
--- NOTE | 2022-02-27 23:24 | P.PN ---
Subjective Progress Note Date: 02/27/22 Principal diagnosis: Urinary tract infection Patient is a 81 year male with multiple comorbidities including posttreatment cancer treated with radiation therapy present hospitalization denies weakness patient is to have fever positive UA concerning for urinary tract infection. On today's evaluation that is 02/27/2022, the patient continues to be afebrile, the patient is breathing comfortably with chest pain or shortness of cough no nausea no vomiting no abdominal pain or diarrhea, no new symptoms Objective - Vital Signs Vital signs: Vital Signs Temp 98.9 F 02/27/22 12:21 Pulse 60 02/27/22 12:21 Resp 18 02/27/22 12:21 BP 91/58 02/27/22 12:21 Pulse Ox 96 02/27/22 12:21 FiO2 21 02/24/22 19:45 Intake & Output 02/26/22 02/27/22 02/27/22 18:59 06:59 18:59 Intake Total 50 300 Output Total 800 750 825 Balance -750 450 825 Intake: Intake, IV Titration 50 Amount cefTRIAXone 1 gm In 50 Sodium Chloride 0.9% 50 ml @ 100 mls/hr IVPB Q24H [facility] Rx#:[id number] Oral 300 Output: Urine 800 750 825 Other: Voiding Method Self-Catheterization Self-Catheterization Self-Catheterization # Bowel Movements 1 1 - Exam GENERAL DESCRIPTION: An elderly male lying in bed in no distress RESPIRATORY SYSTEM: Unlabored breathing , decreased breath sounds at bases HEART: S1 S2 regular rate and rhythm , ABDOMEN: Soft , no tenderness EXTREMITIES: No edema feet - Labs CBC & Chem 7: 02/27/22 06:55 02/27/22 06:55 Labs: Abnormal Lab Results - Last 24 Hours (Table) 02/27/22 02/27/22 02/27/22 Range/Units 06:55 06:55 06:55 WBC 2.41 L (4.50-10.00) X 10*3/uL RBC 4.34 L (4.40-5.60) X 10*6/uL Hgb 12.6 L (13.0-17.0) g/dL Hct 37.5 L (39.6-50.0) % Plt Count 58 L (140-440) X 10*3/uL MPV 12.6 H (9.5-12.2) fL Neutrophils # 1.34 L (1.80-7.70) X 10*3/uL Lymphocytes # 0.40 L (0.90-5.00) X 10*3/uL Eosinophils # 0.01 L (0.04-0.35) X 10*3/uL Immature Plt Fraction 9.5 H (1.1-6.1) % PT 17.9 H (9.9-11.9) sec INR 1.67 H (0.90-1.11) Sodium 134 L (135-145) mmol/L Anion Gap 9.00 L (10.00-18.00) mmol/L Creatinine 1.7 H (0.6-1.5) mg/dL Est GFR (CKD-EPI)AfAm 44.8 L (60.0-200.0) Est GFR (CKD-EPI)NonAf 38.6 L (60.0-200.0) Glucose 115 H (70-110) mg/dL Calcium 8.3 L (8.7-10.3) mg/dL Microbiology - Last 24 Hours (Table) 02/24/22 15:56 Blood Culture - Preliminary Blood No Growth after 48 hours Assessment and Plan (1) UTI (urinary tract infection) Current Visit: Yes Status: Acute Code(s): N39.0 - URINARY TRACT INFECTION, SITE NOT SPECIFIED SNOMED Code(s): 10458611 Plan: 1patient presented to hospital generalized weakness patient did have a low- grade fever did have a positive urine in this patient who did have a history of prostate cancer treated with radiation therapy likely urinary source for his fever and possible UTI as currently no other obvious focus of infection chest x- ray was negative patient do not have any respiratory symptoms abdominal soft on clinical examination evidence of any cellulitis or joint swelling. 2patient currently is currently growing coag negative staph ultrasound was negative for any structural abnormality 3 patient seemed to showing clinical improvement repeat urinalysis not significantly positive will consider been short course of oral Levaquin Time with Patient: Less than 30
[2022-02-28 06:03] LABS: Prothrombin Time 19.7 sec (9.0-12.0)
[2022-02-28 06:22] LABS: African American GFR (CKD) 45 (>60 ml/min/1.73 sqM); Anion Gap 3 mmol/L; Blood Urea Nitrogen 28 mg/dL (9-20); Calcium 8.2 mg/dL (8.4-10.2); Carbon Dioxide 29 mmol/L (22-30); Chloride 103 mmol/L (98-107); Glucose 116 mg/dL (74-99); Non-African American GFR(CKD) 39 (>60 ml/min/1.73 sqM); Potassium 4.1 mmol/L (3.5-5.1); Sodium 135 mmol/L (137-145)
[2022-02-28] MEDS: ASPIRIN 81 MG PO SCH (07:55)
[2022-02-28] MEDS: GABAPENTIN 300 MG CAP PO SCH (07:56)
[2022-02-28] MEDS: BACLOFEN 10 MG TAB PO SCH (07:56)
[2022-02-28] MEDS: METOPROLOL TARTRATE 50 MG TAB PO SCH (07:58)
[2022-02-28] MEDS: PANTOPRAZOLE 40 MG TABLET PO SCH (07:59)
[2022-02-28] MEDS: TAMSULOSIN 0.4 MG CAP.ER.24H PO SCH (07:59)
[2022-02-28] MEDS: NON FORMULARY DRUG (Methenamine Hippurate [Methenamine Hippurate] 1 GM Tablet) PO SCH (08:01)
[2022-02-28] MEDS ORDERED: LEVOFLOXACIN 250 MG TAB PO SCH (09:00)
[2022-02-28 12:00] VITALS: BP 117/63; PULSE 61; RESP 18; TEMP 98.4
[2022-02-28] MEDS: SODIUM CHLORIDE 0.9% 1,000 ML IV SCH (13:33)
--- NOTE | 2022-02-28 14:22 | P.DS ---
Providers Date of admission: 02/24/22 01:25 Expected date of discharge: 02/28/22 Attending physician: Rip Martinez Consults: 02/24/22 13:10 Consult Physician Urgent Consulting Provider: Kacie Whitmore Consult Reason/Comments: hx of rec uti, self caths, febrile, low suspicion for UTI Do you want consulting provider notified?: Yes Primary care physician: Jeison Reyes Hospital Course: Final diagnosis Acute urinary tract infection, present on admission Generalized weakness with gait dysfunction Acute kidney injury, possibly secondary to poor oral intake and dehydration History of atrial fibrillation maintained on Coumadin History of prostate cancer History of CVA/TIA Hyperlipidemia Hypertension Osteoarthritis Self caths 4 times daily History of chronic mild bilateral hydronephrosis follows with urology outpatient GI prophylaxis DVT prophylaxis Full code Discharge disposition Patient is being discharged in a stable condition with guarded prognosis to [facility]. Patient will follow-up with Dr. Reyes in the outpatient setting upon discharge. Patient is to continue with oral Levaquin 250 mg daily for the next 3 days to complete the course patient will need follow-up with urology and also his neurologist Dr. Peters in the outpatient setting. Total time taken is greater than 35 minutes. Hospital course This is a 81-year-old male who was recently admitted with significant weakness and urinary tract infection was being closely monitored. ID following patient was maintained on IV antibiotics and transitioned oral Levaquin and will continue to 150 mg daily for the next 3 days to complete the course. Patient will need close outpatient follow-up with urologist along with neurologist if he follows with Dr. Peters closely in the outpatient setting. Patient with significant weakness was seen and evaluated by physical therapy recommended subacute rehab and patient is agreeable. Patient has been cleared for discharge to [facility] and will be discharged today. Patient is also on Coumadin therapy for history of atrial fibrillation and current INR is 2.0 recommend eating to closely monitor PT/INR level and repeat labs also monitor kidney functions as they were elevated. Recommend repeat CBC, BMP, PT/INR in the next 1-2 days. Currently no reports of chest pain, shortness of breath, or palpitations. Patient is afebrile. No reports of nausea or vomiting and patient is tolerating diet. Patient will be going to [facility] today. Guarded prognosis. Physical exam: Gen: This is a 81-year-old male awake, alert and oriented 3, well-developed, well-nourished HEENT: Head is atraumatic, normocephalic. Pupils equal, round. Sclerae is anicteric. NECK: Supple. No JVD. No lymphadenopathy. No thyromegaly. LUNGS: Diminished breath sounds bilaterally with no wheezing or rhonchi. No intercostal retractions. HEART: S1, S2 are muffled ABDOMEN: Soft. Bowel sounds are present. No masses. No tenderness. EXTREMITIES: No pedal edema. No calf tenderness. NEUROLOGICAL: Patient is awake, alert and oriented x3. Cranial nerves 2 through 12 are grossly intact. Diffuse weakness Please refer to medication reconciliation sheet for a list of medications. The impression and plan of care has been dictated by Vivian Childs, Nurse Practitioner as directed. Dr. Juan MD I have performed a history and examination and MDM of this patient, discussed the same with the dictator, and agree with the dictator's assessment and plan as written ,documented as a scribe. Based on total visit time, I have performed more than 50% of the visit. Patient Condition at Discharge: Stable Plan - Discharge Summary Discharge Rx Participant: No New Discharge Prescriptions: New Levofloxacin [Levaquin] 250 mg PO Q24HR 3 Days #3 tab Pantoprazole [Protonix] 40 mg PO AC-BRKFST tab Acetaminophen Tab [Tylenol] 650 mg PO Q6HR PRN tab PRN Reason: Mild Pain Or Fever > 100.5 Continue ramipriL [Altace] 10 mg PO DAILY@1830 Isosorbide Mononitrate [Imdur] 60 mg PO HS@2300 Baclofen [Lioresal] 10 mg PO TID@0700,1500,2300 Warfarin [Coumadin] 2.5 mg PO SA@1830 Aspirin 81 mg PO DAILY@0700 Digoxin [Lanoxin] 125 mcg PO HS@2300 Simvastatin [Zocor] 40 mg PO HS@1830 Warfarin [Coumadin] 1.25 mg PO SUMOTUWETHFR@1830 Tamsulosin [Flomax] 0.4 mg PO BID@0700,1830 Metoprolol Tartrate [Lopressor] 75 mg PO BID@0700,1830 Methenamine Hippurate 1 gm PO BID@0700,1830 Gabapentin [Neurontin] 300 mg PO TID@0700,1500,2300 #6 cap Discontinued cefUROXime axetiL [Ceftin] 500 mg PO BID 3 Days #6 tab Discharge Medication List Aspirin 81 mg PO DAILY@0709/02/13 [History] Baclofen [Lioresal] 10 mg PO TID@0700,1500,2300 09/02/13 [History] Digoxin [Lanoxin] 125 mcg PO HS@229909/02/13 [History] Isosorbide Mononitrate [Imdur] 60 mg PO HS@229909/02/13 [History] Simvastatin [Zocor] 40 mg PO HS@182909/02/13 [History] Warfarin [Coumadin] 2.5 mg PO SA@182909/02/13 [History] ramipriL [Altace] 10 mg PO DAILY@182909/02/13 [History] Warfarin [Coumadin] 1.25 mg PO SUMOTUWETHFR@182903/06/18 [History] Tamsulosin [Flomax] 0.4 mg PO BID@0700,182909/03/19 [History] Metoprolol Tartrate [Lopressor] 75 mg PO BID@0700,182904/20/20 [History] Methenamine Hippurate 1 gm PO BID@0700,182901/14/22 [History] Acetaminophen Tab [Tylenol] 650 mg PO Q6HR PRN tab 02/28/22 [Rx] Gabapentin [Neurontin] 300 mg PO TID@0700,1500,2300 #6 cap 02/28/22 [Rx] Levofloxacin [Levaquin] 250 mg PO Q24HR 3 Days #3 tab 02/28/22 [Rx] Pantoprazole [Protonix] 40 mg PO AC-BRKFST tab 02/28/22 [Rx] Follow up Appointment(s)/Referral(s): Jeison Reyes MD [Primary Care Provider] - 1-2 days Jonas Padilla MD [STAFF PHYSICIAN] - 1 Week Daniel Peters DO [STAFF PHYSICIAN] - 1 Week Ambulatory/Diagnostic Orders: Complete Blood Count w/diff [LAB.AMB] Time Frame: 2 Days, Location: None Selected Activity/Diet/Wound Care/Special Instructions: Patient is going to [facility] on the [address] Activity as tolerated Continue regular diet Continue with follow-up labs of CBC, BMP, PT/INR in the next 1-2 days Continue Coumadin with pharmacy to dose Continue with oral supplements ensure 3 times a day with meals Patient follow-up with primary care provider outpatient Follow up with neurology outpatient in 1-2 weeks Follow-up neurology outpatient Patient 2 continue on oral Levaquin for the next 3 days and then may discontinue Patient to continue with self-catheterization 4 times daily Discharge Disposition: TRANSFER TO SNF/ECF
[2022-02-28] MEDS ORDERED: WARFARIN 2 MG TAB PO ONE (18:00)
== END 2022-02-28 16:04 | DRG 699 ==
LOC: EC 22:58 → 5NMEDONC 02-24 01:25
PROVIDERS: ADMIT Hospitalist; ATTEND Hospitalist
DX: T83.518A Infection and inflammatory reaction due to other urinary catheter, initial encounter (principal); N13.6 Pyonephrosis; N17.9 Acute kidney failure, unspecified; Y73.8 Miscellaneous gastroenterology and urology devices associated with adverse incidents, not elsewhere classified; Z20.822 Contact with and (suspected) exposure to COVID-19; G35 Multiple sclerosis; E03.9 Hypothyroidism, unspecified; E78.5 Hyperlipidemia, unspecified; I10 Essential (primary) hypertension; I25.2 Old myocardial infarction; I48.91 Unspecified atrial fibrillation; J44.9 Chronic obstructive pulmonary disease, unspecified; M19.90 Unspecified osteoarthritis, unspecified site; R26.9 Unspecified abnormalities of gait and mobility; Z79.01 Long term (current) use of anticoagulants; Z79.82 Long term (current) use of aspirin; Z79.899 Other long term (current) drug therapy; Z82.49 Family history of ischemic heart disease and other diseases of the circulatory system; Z80.8 Family history of malignant neoplasm of other organs or systems; Z85.46 Personal history of malignant neoplasm of prostate; Z86.73 Personal history of transient ischemic attack (TIA), and cerebral infarction without residual deficits; Z87.440 Personal history of urinary (tract) infections; Z92.3 Personal history of irradiation; Z71.3 Dietary counseling and surveillance
CPT/HCPCS: 36415; 71045; 76770; 80048; 80053; 81001; 83605; 83735; 85025; 85610; 85730; 86140; 87040; 87077; 87086; 87186; 87502; 87635; 93005; 94760; 96361; 96374; 99285

== ENCOUNTER → 2022-08-09 | Outpatient (CLI) | payer MEDICARE ==
--- NOTE | 2022-08-09 16:11 | US ---
EXAMINATION TYPE: US kidneys/renal and bladder DATE OF EXAM: 08/09/2022 COMPARISON: US 02/26/22 CLINICAL INDICATION: Female, 65 years old with history of N18.32 Chronic Kidney disease I95.1 orthos tatic h; Hydronephrosis. EXAM MEASUREMENTS: Right Kidney: 12.8 x 5.7 x 5.8 cm Left Kidney: 9.4 x 4.1 x 4.6 cm Right Kidney: Appears slightly enlarged. Anechoic area seen lower pole: 2.3 x 2.2 x 2.2 cm. *Renal pelvis appears dilated. Left Kidney: Anechoic area seen at mid: 3.1 x 2.4 x 2.6 cm. Smaller anechoic area seen adjacent. Anechoic area seen upper pole-appearance of possible mild dilated upper collecting system: 1.0 x 0. 9 x 1.8 cm. Bladder: Internal echoes seen within the bladder. Bilateral Jets seen: Left jet seen. IMPRESSION: 1. Mid to inferior pole right renal cyst. 2. Couple of mid left renal cysts. 3. Some debris within the urinary bladder. Correlate for cystitis.
== END | disposition home or self-care (01) ==
LOC: RADUSWWP 14:28
PROVIDERS: ATTEND Urology
DX: N28.1 Cyst of kidney, acquired (principal); N32.89 Other specified disorders of bladder; N13.30 Unspecified hydronephrosis
CPT/HCPCS: 76770

== ENCOUNTER 2023-08-24 20:12 | Observation (INO) | payer MEDICARE ==
--- NOTE | 2023-08-24 21:03 | ED ---
General Adult HPI - General Chief complaint: Weakness Stated complaint: General weakness, Fever Time Seen by Provider: 08/24/23 20:39 Source: patient, EMS Mode of arrival: EMS Limitations: no limitations - History of Present Illness Initial comments: 83-year-old male with past medical history significant for A-fib, hypertension, hyperlipidemia, history of prostate cancer who also straight caths 4 times a day presenting to the ED with generalized weakness and fever at home. Reports that he straight caths 4 times daily. Reports no recent cloudiness or blood in his urine. Reports today he has just been too tired to get out of bed. Denies URI symptoms. Denies chest pain or shortness of breath. Denies abdominal pain. Denies nausea vomiting diarrhea. No other complaints at this time. - Related Data Home Medications Medication Instructions Recorded Confirmed Aspirin 81 mg PO DAILY@0700 09/02/13 02/24/22 Baclofen [Lioresal] 10 mg PO TID@0700,1500,2300 09/02/13 02/24/22 Digoxin [Lanoxin] 125 mcg PO HS@229909/02/13 02/24/22 Isosorbide Mononitrate [Imdur] 60 mg PO HS@229909/02/13 02/24/22 Simvastatin [Zocor] 40 mg PO HS@182909/02/13 02/24/22 Warfarin [Coumadin] 2.5 mg PO SA@182909/02/13 02/24/22 ramipriL [Altace] 10 mg PO DAILY@182909/02/13 02/24/22 Warfarin [Coumadin] 1.25 mg PO SUMOTUWETHFR@182903/06/18 02/24/22 Tamsulosin [Flomax] 0.4 mg PO BID@0700,1830 09/03/19 02/24/22 Metoprolol Tartrate [Lopressor] 75 mg PO BID@0700,1830 04/20/20 02/24/22 Methenamine Hippurate 1 gm PO BID@0700,1830 01/14/22 02/24/22 Previous Rx's Medication Instructions Recorded Acetaminophen Tab [Tylenol] 650 mg PO Q6HR PRN tab 02/28/22 Gabapentin [Neurontin] 300 mg PO TID@0700,1500,2300 #6 cap 02/28/22 Levofloxacin [Levaquin] 250 mg PO Q24HR 3 Days #3 tab 02/28/22 Pantoprazole [Protonix] 40 mg PO AC-BRKFST tab 02/28/22 Allergies Allergy/AdvReac Type Severity Reaction Status Date / Time No Known Allergies Allergy Verified 08/24/23 20:23 Review of Systems ROS Statement: Those systems with pertinent positive or pertinent negative responses have been documented in the HPI. ROS Other: All systems not noted in ROS Statement are negative. Past Medical History Past Medical History: Atrial Fibrillation, Cancer, CVA/TIA, Hyperlipidemia, Hypertension, Osteoarthritis (OA), Prostate Disorder, Thyroid Disorder Additional Past Medical History / Comment(s): MS, hx. prostate cancer 2014-had radiation. Generator change-01/14/2019 PACEMAKER ONLY, NO DEFIBRILLATOR Last Myocardial Infarction Date:: unk DATE History of Any Multi-Drug Resistant Organisms: None Reported Past Surgical History: Back Surgery, Heart Catheterization, Hernia Repair, Pacemaker Additional Past Surgical History / Comment(s): PACEMAKER, Generator change- 01/14/2019 Past Anesthesia/Blood Transfusion Reactions: No Reported Reaction Type of Cardiac Device: Permanent Pacemaker Device Placement Date:: 05/02/11 Past Psychological History: No Psychological Hx Reported Smoking Status: Never smoker Past Alcohol Use History: Occasional Past Drug Use History: None Reported - Past Family History Mother Family Medical History: No Reported History Sister(s) Family Medical History: Cancer Additional Family Medical History / Comment(s): melanoma Father Family Medical History: Myocardial Infarction (PR) General Exam Limitations: no limitations General appearance: alert, in no apparent distress Eye exam: Present: normal appearance Neck exam: Present: normal inspection Respiratory exam: Present: normal lung sounds bilaterally Cardiovascular Exam: Present: regular rate GI/Abdominal exam: Present: soft, normal bowel sounds, other (No CVA tenderness to percussion bilaterally.). Absent: distended, tenderness, guarding, rebound, rigid Neurological exam: Present: alert, oriented X3 Skin exam: Present: warm, dry Course Vital Signs 08/24/23 08/24/23 08/25/23 20:13 22:00 00:00 Temperature 99.2 F 98.9 F Pulse Rate 57 L 88 61 Respiratory 18 18 18 Rate Blood Pressure 162/90 160/91 119/69 O2 Sat by Pulse 97 98 97 Oximetry Medical Decision Making - Medical Decision Making Was pt. sent in by a medical professional or institution (MAIKOL Durán, SPORTS DEVELOPMENT OFFICER, urgent care, hospital, or senior living...) When possible be specific @ -No Did you speak to anyone other than the patient for history (EMS, parent, family, police, friend...)? What history was obtained from this source @ -No Did you review nursing and triage notes (agree or disagree)? Why? @ -I reviewed and agree with nursing and triage notes Were old charts reviewed (outside hosp., previous admission, EMS record, old EKG, old radiological studies, urgent care reports/EKG's, senior living records)? Report findings @ -No old charts were reviewed Differential Diagnosis (chest pain, altered mental status, abdominal pain women, abdominal pain men, vaginal bleeding, weakness, fever, dyspnea, syncope, headache, dizziness, GI bleed, back pain, seizure, CVA, palpatations, mental health, musculoskeletal)? @ -Differential Weakness: Hypoglycemia, shock, sepsis, hyponatremia, anemia, infection, PR, ETOH, adverse medicine reaction, overdose, stroke, this is not meant to be an all-inclusive list. EKG interpreted by me (3pts min.). @ -EKG interpreted by me showing a paced rhythm at [address] or T wave changes. QRS 180, QT/QTc 350/357. Appears similar to prior. X-rays interpreted by me (1pt min.). @ -Chest x-ray interpreted by me which does show findings concerning for developing pneumonia CT interpreted by me (1pt min.). @ -None done U/S interpreted by me (1pt. min.). @ -None done What testing was considered but not performed or refused? (CT, X-rays, U/S, labs)? Why? @ -None What meds were considered but not given or refused? Why? @ -None Did you discuss the management of the patient with other professionals (professionals i.e. MAIKOL Durán, SPORTS DEVELOPMENT OFFICER, lab, RT, psych nurse, social work administrator, bill cutter, teacher, hospital chief financial officer, special education case manager)? Give summary @ -Case discussed with Jeison, who accepted admission under [facility] Was smoking cessation discussed for >3mins.? @ -No Was critical care preformed (if so, how long)? @ -No Were there social determinants of health that impacted care today? How? (Homelessness, low income, unemployed, alcoholism, drug addiction, transportation, low edu. Level, literacy, decrease access to med. care, half-way, rehab)? @ -No Was there de-escalation of care discussed even if they declined (Discuss DNR or withdrawal of care, Hospice)? DNR status @ -No What co-morbidities impacted this encounter? (DM, HTN, Smoking, COPD, CAD, Cancer, CVA, ARF, Chemo, Hep., AIDS, mental health diagnosis, sleep apnea, morbid obesity)? @ -Hypertension, hyperlipidemia, A-fib, history of prostate cancer Was patient admitted / discharged? Hospital course, mention meds given and route, prescriptions, significant lab abnormalities, going to OR and other pertinent info. @ -Admission 83-year-old male with medical history of hypertension, hyperlipidemia, history of prostate cancer, and straight caths 4 times a day presenting to the ED with complaints of generalized weakness and fever at home earlier. Laboratory studies reviewed. CBC shows an elevated white blood cell count of 11.2. Chemistry panel significant for elevations in BUN and creatinine at 31 and 1.75 respectively. Urinalysis does show evidence of infection with small leukocyte esterase, 20 white blood cells, rare bacteria, serology panel unremarkable. Chest x-ray did show airspace opacity dorsal right lung base concerning for dev eloping pneumonia. With generalized weakness, patient feels unable to perform his ADLs. Patient will be admitted with consult to PT/OT and treated with antibiotics for UTI/pneumonia. Undiagnosed new problem with uncertain prognosis? @ -No Drug Therapy requiring intensive monitoring for toxicity (Heparin, Nitro, Insulin, Cardizem)? @ -No Were any procedures done? @ -No Diagnosis/symptom? @ -Generalized weakness, urinary tract infection, pneumonia Acute, or Chronic, or Acute on Chronic? @ -Acute Uncomplicated (without systemic symptoms) or Complicated (systemic symptoms)? @ -Uncomplicated Side effects of treatment? @ -No Exacerbation, Progression, or Severe Exacerbation? @ -No Poses a threat to life or bodily function? How? (Chest pain, USA, PR, pneumonia, PE, COPD, DKA, ARF, appy, cholecystitis, CVA, Diverticulitis, Homicidal, Suicidal, threat to staff... and all critical care pts) @ -No - Lab Data Result diagrams: 08/24/23 21:09 08/24/23 21:09 Lab Results 08/24/23 08/24/23 08/24/23 Range/Units 21:09 21: 21: WBC 11.2 H (3.8-10.6) k/uL RBC 4.81 (4.30-5.90) m/uL Hgb 14.0 (13.0-17.5) gm/dL Hct 44.6 (39.0-53.0) % MCV 92.8 (80.0-100.0) fL MCH 29.2 (25.0-35.0) pg MCHC 31.5 (31.0-37.0) g/dL RDW 13.2 (11.5-15.5) % Plt Count 138 L (150-450) k/uL MPV 8.4 Neutrophils % 85 % Lymphocytes % 5 % Monocytes % 7 % Eosinophils % 2 % Basophils % 0 % Neutrophils # 9.5 H (1.3-7.7) k/uL Lymphocytes # 0.6 L (1.0-4.8) k/uL Monocytes # 0.8 (0-1.0) k/uL Eosinophils # 0.2 (0-0.7) k/uL Basophils # 0.0 (0-0.2) k/uL Sodium 139 (137-145) mmol/L Potassium 5.1 (3.5-5.1) mmol/L Chloride 106 (98-107) mmol/L Carbon Dioxide 24 (22-30) mmol/L Anion Gap 9 mmol/L BUN 31 H (9-20) mg/dL Creatinine 1.75 H (0.66-1.25) mg/dL Est GFR (CKD-EPI)AfAm 41 (>60 ml/min/1.73 sqM) Est GFR (CKD-EPI)NonAf 36 (>60 ml/min/1.73 sqM) Glucose 110 H (74-99) mg/dL Calcium 9.0 (8.4-10.2) mg/dL Total Bilirubin 0.7 (0.2-1.3) mg/dL AST 29 (17-59) U/L ALT 22 (4-49) U/L Alkaline Phosphatase 72 (38-126) U/L Total Protein 6.6 (6.3-8.2) g/dL Albumin 4.4 (3.5-5.0) g/dL Urine Color Urine Appearance (Clear) Urine pH (5.0-8.0) Ur Specific [place] (1.001-1.035) Urine Protein (Negative) Urine Glucose (UA) (Negative) Urine Ketones (Negative) Urine Blood (Negative) Urine Nitrite (Negative) Urine Bilirubin (Negative) Urine Urobilinogen (<2.0) mg/dL Ur Leukocyte Esterase (Negative) Urine RBC (0-5) /hpf Urine WBC (0-5) /hpf Urine Bacteria (None) /hpf Granular Casts (0) /lpf Urine Mucus (None) /hpf Influenza Type A (PCR) Not Detected (Not Detectd) Influenza Type B (PCR) Not Detected (Not Detectd) RSV (PCR) Not Detected (Not Detectd) SARS-CoV-2 (PCR) Not Detected (Not Detectd) 08/24/23 Range/Units 23:30 WBC (3.8-10.6) k/uL RBC (4.30-5.90) m/uL Hgb (13.0-17.5) gm/dL Hct (39.0-53.0) % MCV (80.0-100.0) fL MCH (25.0-35.0) pg MCHC (31.0-37.0) g/dL RDW (11.5-15.5) % Plt Count (150-450) k/uL MPV Neutrophils % % Lymphocytes % % Monocytes % % Eosinophils % % Basophils % % Neutrophils # (1.3-7.7) k/uL Lymphocytes # (1.0-4.8) k/uL Monocytes # (0-1.0) k/uL Eosinophils # (0-0.7) k/uL Basophils # (0-0.2) k/uL Sodium (137-145) mmol/L Potassium (3.5-5.1) mmol/L Chloride (98-107) mmol/L Carbon Dioxide (22-30) mmol/L Anion Gap mmol/L BUN (9-20) mg/dL Creatinine (0.66-1.25) mg/dL Est GFR (CKD-EPI)AfAm (>60 ml/min/1.73 sqM) Est GFR (CKD-EPI)NonAf (>60 ml/min/1.73 sqM) Glucose (74-99) mg/dL Calcium (8.4-10.2) mg/dL Total Bilirubin (0.2-1.3) mg/dL AST (17-59) U/L ALT (4-49) U/L Alkaline Phosphatase (38-126) U/L Total Protein (6.3-8.2) g/dL Albumin (3.5-5.0) g/dL Urine Color Yellow Urine Appearance Clear (Clear) Urine pH 6.5 (5.0-8.0) Ur Specific [place] 1.016 (1.001-1.035) Urine Protein Negative (Negative) Urine Glucose (UA) Negative (Negative) Urine Ketones Negative (Negative) Urine Blood Trace H (Negative) Urine Nitrite Negative (Negative) Urine Bilirubin Negative (Negative) Urine Urobilinogen <2.0 (<2.0) mg/dL Ur Leukocyte Esterase Small H (Negative) Urine RBC 7 H (0-5) /hpf Urine WBC 20 H (0-5) /hpf Urine Bacteria Rare H (None) /hpf Granular Casts 1 (0) /lpf Urine Mucus Rare H (None) /hpf Influenza Type A (PCR) (Not Detectd) Influenza Type B (PCR) (Not Detectd) RSV (PCR) (Not Detectd) SARS-CoV-2 (PCR) (Not Detectd) Disposition Referrals: Jeison Reyes MD [Primary Care Provider] - 1-2 days
[2023-08-24 21:32] LABS: Basophils % (A) 0 %; Eosinophils # (A) 0.2 k/uL (0-0.7); Eosinophils % (A) 2 %; HCT 44.6 % (39.0-53.0); Lymphocytes # (A) 0.6 k/uL (1.0-4.8); Lymphocytes % (A) 5 %; MCH 29.2 pg (25.0-35.0); MCHC 31.5 g/dL (31.0-37.0); MCV 92.8 fL (80.0-100.0); Mean Platelet Volume 8.4; Monocytes # (A) 0.8 k/uL (0-1.0); Monocytes % (A) 7 %; Neutrophils # (A) 9.5 k/uL (1.3-7.7); Neutrophils % (A) 85 %; Platelet Count 138 k/uL (150-450); RBC 4.81 m/uL (4.30-5.90); RDW 13.2 % (11.5-15.5); WBC 11.2 k/uL (3.8-10.6)
[2023-08-24 21:55] LABS: ALT 22 U/L (4-49); AST 29 U/L (17-59); African American GFR (CKD) 41 (>60 ml/min/1.73 sqM); Albumin 4.4 g/dL (3.5-5.0); Alkaline Phosphatase 72 U/L (38-126); Anion Gap 9 mmol/L; Blood Urea Nitrogen 31 mg/dL (9-20); Carbon Dioxide 24 mmol/L (22-30); Chloride 106 mmol/L (98-107); Glucose 110 mg/dL (74-99); Non-African American GFR(CKD) 36 (>60 ml/min/1.73 sqM); Potassium 5.1 mmol/L (3.5-5.1); Sodium 139 mmol/L (137-145); Total Bilirubin 0.7 mg/dL (0.2-1.3); Total Protein 6.6 g/dL (6.3-8.2)
[2023-08-24] MEDS: ACETAMINOPHEN TAB 500 MG TAB PO STA (22:00)
[2023-08-24] MEDS: SODIUM CHLORIDE 0.9% 500 ML 500 ML IV STA (22:01)
--- NOTE | 2023-08-24 23:29 | XR ---
EXAMINATION TYPE: XR chest 2V DATE OF EXAM: 08/24/2023 9:16 PM CLINICAL INDICATION:Male, 83 years old with history of generalized weakness, fever r/o pna; [facility] COMPARISON: 02/24/2022 TECHNIQUE: XR chest 2V. Frontal and lateral views of the chest.. FINDINGS: Left chest dual-lead pacemaker with lead tips over the RV and RA. Heart appears moderately enlarged. Partially calcified, moderately tortuous aorta. Suspect mild central vascular congestion. There are diffusely increased interstitial markings which l ikely represent chronic changes, but mild superimposed edema is possible. Patchy opacity in the right lung base suggestive of airspace disease. No visualized pneumothorax. Mild degenerative changes of the dorsal spine. Lungs appear hyperinflated with some AP widening of th e chest. Overall lung findings suggest background COPD. IMPRESSION: 1. Cardiomegaly with possible mild interstitial edema and small effusions. Correlate clinically for mild CHF. 2. Suspect background COPD. 3. Airspace opacity suggested towards the right lung base, concerning for pneumonia. Recommend follo w-up to resolution.
[2023-08-24 23:42] LABS: Appearance,Urine Clear (Clear); Bacteria,Urine Rare /hpf; Bilirubin,Urine Negative (Negative); Blood,Urine Trace (Negative); Color,Urine Yellow; Glucose,Urine (UA) Negative (Negative); Granular Casts,Urine 1 /lpf (0); Ketones,Urine Negative (Negative); Leukocyte Esterase,Urine Small (Negative); Mucus,Urine Rare /hpf; Nitrite,Urine Negative (Negative); PH, Urine 6.5 (5.0-8.0); Protein,Urine Negative (Negative); RBC,Urine 7 /hpf (0-5); Specific Gravity,Urine 1.016 (1.001-1.035); Urobilinogen,Urine <2.0 mg/dL (<2.0); WBC,Urine 20 /hpf (0-5)
[2023-08-25] MEDS ORDERED: PNEUMONIA PROTOCOL UTILIZED 1 EACH MISC PO PRN (00:48)
[2023-08-25] MEDS: SODIUM CHLORIDE 0.9% 1,000 ML IV SCH (02:49)
[2023-08-25] MEDS: AZITHROMYCIN 500 MG in SODIUM CHLORIDE 0.9% 250 ML IVPB STA (02:53)
[2023-08-25] MEDS ORDERED: ACETAMINOPHEN TAB 325 MG TAB PO PRN (09:26)
[2023-08-25] MEDS: CHOLECALCIFEROL 25 MCG (1000 IU) TABLET PO SCH (10:22)
[2023-08-25] MEDS: TAMSULOSIN 0.4 MG CAP.ER.24H PO SCH (10:23)
[2023-08-25 11:29] LABS: INR 2.3 (<1.2); Prothrombin Time 22.9 sec (10.0-12.5)
[2023-08-25 11:30] LABS: Digoxin 0.7 ng/mL
--- NOTE | 2023-08-25 12:14 | P.HPIM ---
History of Present Illness H&P Date: 08/25/23 This is a pleasant 83-year-old male with medical history significant for prostate cancer requiring intermittent straight catheterization 4 times a day, atrial fibrillation anticoagulated with warfarin on outpatient basis, permanent pacemaker, stroke, hypertension, hyperlipidemia, former smoker. Patient presents to the hospital secondary to increased weakness at home states that he was unable to get out of bed and ambulate he denies any chest pain denies shortness of breath no nausea vomiting or diarrhea he denies any dizziness or lightheadedness. He denies any dysuria urgency burning or frequency. He is not having any orthopnea. Does report having some cough at home but not bringing up any phlegm. Was brought into the hospital for further evaluation. A chest x-ray done shows cardiomegaly with mild possible interstitial edema and small effusions correlate clinically for mild CHF there is COPD noted, there is airspace opacity the right lung base concerning for pneumonia. Personal exam of the chest x-ray it appears more as an underlying pneumonia versus CHF however a proBNP is also procalcitonin level will be ordered. Patient had an indwelling catheter placed on admission secondary to his chronic retention and intermittent catheterizations. Patient had a white blood cell count 11.2, INR today is 2.3. On admission BUN 31, creatinine 1.75. Patient was admitted to the hospital under medicine and has been started empirically on IV ceftriaxone. REVIEW OF SYSTEMS: CONSTITUTIONAL: No fever, no malaise, no fatigue. HEENT: No recent visual problems or hearing problems. Denied any sore throat. CARDIOVASCULAR: No chest pain, orthopnea, PND, no palpitations, no syncope. PULMONARY: No shortness of breath, Reports cough. no hemoptysis. GASTROINTESTINAL: No diarrhea, no nausea, no vomiting, no abdominal pain. NEUROLOGICAL: No headaches, no weakness, no numbness. HEMATOLOGICAL: Denies any bleeding or petechiae. GENITOURINARY: Denies any burning micturition, frequency, or urgency. MUSCULOSKELETAL/RHEUMATOLOGICAL: Denies any joint pain, swelling, or any muscle pain. ENDOCRINE: Denies any polyuria or polydipsia. The rest of the 14-point review of systems is negative. PHYSICAL EXAMINATION: GENERAL: The patient is alert and oriented x3, not in any acute distress. Well developed, well nourished. HEENT: Pupils are round and equally reacting to light. EOMI. No scleral icterus. No conjunctival pallor. Normocephalic, atraumatic. No pharyngeal erythema. No thyromegaly. CARDIOVASCULAR: S1 and S2 present. No murmurs, rubs, or gallops. PULMONARY: Chest is clear to auscultation, no wheezing or crackles. ABDOMEN: Soft, nontender, nondistended, normoactive bowel sounds. No palpable organomegaly. MUSCULOSKELETAL: No joint swelling or deformity. EXTREMITIES: No cyanosis, clubbing, or pedal edema. NEUROLOGICAL: Gross neurological examination did not reveal any focal deficits. SKIN: No rashes. 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 Right lower lobe pneumonia community-acquired pending procalcitonin level patient will remain on IV ceftriaxone empirically Generalized weakness secondary to above patient will need to be evaluated by PT and OT prior to discharge home. History of COPD with no acute exacerbation History of prostate cancer s/p radiation and history of chronic hydronephrosis patient self caths; and has an indwelling catheter placed this admission. On discharge the [place] catheter will be removed. History of underlying atrial fibrillation status post permanent pacemaker implantation back in 2011. Patient is anticoagulant with warfarin on an outpatient basis INR today is 2.3. Warfarin has been continued. History of hyperlipidemia maintained on statin therapy which is been resumed Hypertension maintained on lisinopril and metoprolol which have been continued Permanent pacemaker Former smoker GI prophylaxis DVT prophylaxis Full Code Pending proBNP and procalcitonin level. Patient will also need to be evaluated by physical therapy prior to discharge home. If BNP is elevated patient will be started on IV lasix. Continue IV ceftriaxone. Repeat BMP monitor renal function. Home medications have been resumed. The impression and plan of care has been dictated by Estela Albrecht Nurse Practitioner as directed. Dr. Ck MD I have performed a history and physical examination and medical decision making of this patient, discussed the same with the dictator, and agree with the dictators assessment and plan as written, documented as a scribe. Based on total visit time, I have performed more than 50% of this visit. Past Medical History Past Medical History: Atrial Fibrillation, Cancer, CVA/TIA, Hyperlipidemia, Hypertension, Osteoarthritis (OA), Prostate Disorder, Thyroid Disorder Additional Past Medical History / Comment(s): MS, hx. prostate cancer 2015-had radiation. Generator change-01/14/2019 PACEMAKER ONLY, NO DEFIBRILLATOR Last Myocardial Infarction Date:: unk DATE History of Any Multi-Drug Resistant Organisms: None Reported Past Surgical History: Back Surgery, Heart Catheterization, Hernia Repair, Pacemaker Additional Past Surgical History / Comment(s): PACEMAKER, Generator change- 01/14/2019 Past Anesthesia/Blood Transfusion Reactions: No Reported Reaction Type of Cardiac Device: Permanent Pacemaker Device Placement Date:: 05/02/11 Past Psychological History: No Psychological Hx Reported Smoking Status: Never smoker Past Alcohol Use History: Occasional Additional Past Alcohol Use History / Comment(s): STARTED SMOKING AT AGE 20 quit smoking 1992, smoked 1ppd Past Drug Use History: None Reported - Past Family History Mother Family Medical History: No Reported History Sister(s) Family Medical History: Cancer Additional Family Medical History / Comment(s): melanoma Father Family Medical History: Myocardial Infarction (ND) Medications and Allergies Home Medications Medication Instructions Recorded Confirmed Type Aspirin 81 mg PO DAILY@0730 09/02/13 08/25/23 History Digoxin [Lanoxin] 125 mcg PO HS 09/02/13 08/25/23 History Isosorbide Mononitrate [Imdur] 60 mg PO 09/02/13 08/25/23 History Simvastatin [Zocor] 40 mg PO HS 09/02/13 08/25/23 History Warfarin [Coumadin] 2.5 mg PO MO@1800 09/02/13 08/25/23 History ramipriL [Altace] 10 mg PO DAILY@1800 09/02/13 08/25/23 History Warfarin [Coumadin] 1.25 mg PO SUTUWETHFRSA@1800 03/06/18 08/25/23 History Tamsulosin [Flomax] 0.4 mg PO BID-W/MEALS 09/03/19 08/25/23 History Metoprolol Tartrate [Lopressor] 75 mg PO BID@0730,1800 04/20/20 08/25/23 History Cholecalciferol (Vitamin D3) 50 mcg PO DAILY 08/25/23 08/25/23 History [Vitamin D3 (50 Mcg = 2000 Iu)] Cyanocobalamin (Vitamin B-12) 1,000 mcg PO DAILY 08/25/23 08/25/23 History [Vitamin B-12] Gabapentin 600 mg PO HS 08/25/23 08/25/23 History Trimethoprim [Trimpex] 100 mg PO DAILY@0730 08/25/23 08/25/23 History Vitamin B Complex 1 cap PO MOTH 08/25/23 08/25/23 History Allergies Allergy/AdvReac Type Severity Reaction Status Date / Time No Known Allergies Allergy Verified 08/25/23 09:07 Physical Exam Vitals: Vital Signs Temp Pulse Pulse Resp BP BP Pulse Ox 08/25/23 08:17 94 L 08/25/23 07:05 97.8 F 77 15 164/74 94 L 08/25/23 04:18 98.3 F 73 18 135/87 95 08/25/23 03:30 69 16 122/67 94 L 08/25/23 02:00 65 16 118/67 95 08/25/23 00:00 61 18 119/69 97 08/24/23 22:00 98.9 F 88 18 160/91 98 08/24/23 20:13 99.2 F 57 L 18 162/90 97 Intake and Output 08/24/23 08/25/23 08/25/23 22:59 06:59 14:59 Intake Total 40 Output Total 975 Balance -935 Intake: Intake, IV Titration 40 Amount Sodium Chloride 0.9% 1, 40 000 ml @ 20 mls/hr IV . Q24H [facility] Rx#:[id number] Output: Urine 975 Straight 300 Other: Voiding Method Indwelling Catheter Indwelling Catheter Weight 72.575 kg 72.575 kg Results CBC & Chem 7: 08/24/23 21:09 08/24/23 21:09 Labs: Abnormal Lab Results - Last 24 Hours (Table) 08/24/23 08/24/23 08/24/23 Range/Units 21:09 21:09 23:30 WBC 11.2 H (3.8-10.6) k/uL Plt Count 138 L (150-450) k/uL Neutrophils # 9.5 H (1.3-7.7) k/uL Lymphocytes # 0.6 L (1.0-4.8) k/uL PT (10.0-12.5) sec INR (<1.2) BUN 31 H (9-20) mg/dL Creatinine 1.75 H (0.66-1.25) mg/dL Glucose 110 H (74-99) mg/dL Urine Blood Trace H (Negative) Ur Leukocyte Esterase Small H (Negative) Urine RBC 7 H (0-5) /hpf Urine WBC 20 H (0-5) /hpf Urine Bacteria Rare H (None) /hpf Urine Mucus Rare H (None) /hpf 08/25/23 Range/Units 10:53 WBC (3.8-10.6) k/uL Plt Count (150-450) k/uL Neutrophils # (1.3-7.7) k/uL Lymphocytes # (1.0-4.8) k/uL PT 22.9 H (10.0-12.5) sec INR 2.3 H (<1.2) BUN (9-20) mg/dL Creatinine (0.66-1.25) mg/dL Glucose (74-99) mg/dL Urine Blood (Negative) Ur Leukocyte Esterase (Negative) Urine RBC (0-5) /hpf Urine WBC (0-5) /hpf Urine Bacteria (None) /hpf Urine Mucus (None) /hpf Thrombosis Risk Factor Assmnt - Choose All That Apply Any of the Below Risk Factors Present?: No Other Risk Factors: Yes Each Risk Factor Represents 3 Points: Age 75 years or older Other congenital or acquired thrombophilia - If yes, enter type in comment: No Thrombosis Risk Factor Assessment Total Risk Factor Score: 3 Thrombosis Risk Factor Assessment Level: Moderate Risk Assessment and Plan Time with Patient: Less than 30
[2023-08-25] MEDS: FUROSEMIDE 10 MG/ML 2 ML VIAL IV ONE (12:45)
[2023-08-25] MEDS: METOPROLOL TARTRATE 25 MG TAB PO SCH (17:20)
[2023-08-25] MEDS: lisinopriL 20 MG TAB PO SCH (17:20)
[2023-08-25] MEDS: WARFARIN 2.5 MG TAB PO ONE (17:21)
[2023-08-25] MEDS ORDERED: WARFARIN 1.25 MG TAB PO ONE (18:00)
[2023-08-25] MEDS: DIGOXIN 125 MCG TAB PO SCH (20:22)
[2023-08-25] MEDS: ATORVASTATIN 20 MG TAB PO SCH (20:22)
[2023-08-25] MEDS: GABAPENTIN 300 MG CAP PO SCH (20:22)
[2023-08-25] MEDS: ISOSORBIDE MONONITRATE ER 60 MG TAB.ER.24H PO SCH (20:22)
[2023-08-25] MEDS ORDERED: DIGOXIN 62.5 MCG TAB PO SCH (21:00)
[2023-08-26 06:57] LABS: INR 2.2 (<1.2); Prothrombin Time 21.8 sec (10.0-12.5)
[2023-08-26 07:42] VITALS: RESP 17
[2023-08-26] MEDS: ASPIRIN 81 MG PO SCH (08:32)
[2023-08-26] MEDS: CYANOCOBALAMIN 500 MCG TAB PO SCH (08:32)
[2023-08-26] MEDS: AZITHROMYCIN 500 MG TAB PO SCH (08:33)
[2023-08-26] MEDS: TRIMETHOPRIM 100 MG TAB PO SCH (08:33)
[2023-08-26 09:41] LABS: BUN/Creat Ratio 10.89 Ratio (12.00-20.00); Blood Urea Nitrogen 19.6 mg/dL (9.0-27.0); Glucose 107 mg/dL (70-110)
[2023-08-26 09:42] LABS: Calcium 9.1 mg/dL (8.7-10.3); Carbon Dioxide 25.6 mmol/L (21.6-31.8); Chloride 106 mmol/L (96-109); Potassium 4.2 mmol/L (3.5-5.5); Sodium 142 mmol/L (135-145)
[2023-08-26 11:44] VITALS: BP 110/68; PULSE 65; TEMP 97.9
[2023-08-26] MEDS ORDERED: lisinopriL 5 MG TAB PO SCH (18:00)
[2023-08-26] MEDS ORDERED: WARFARIN 2.5 MG TAB PO ONE (18:00)
[2023-08-26] MEDS ORDERED: lisinopriL 20 MG TAB PO SCH (18:00)
--- NOTE | 2023-08-26 19:32 | P.DS ---
Providers Date of admission: 08/25/23 01:08 Attending physician: Rip Martinez Primary care physician: Jeison Reyes Hospital Course: Final Diagnosis Acute exacerbation of chronic CHF systolic and diastolic dysfunction patient's known ejection fraction is 45%-50%, patient also has mild MR TR and moderate pulmonary regurgitation as well as mild aortic stenosis. Right lower lobe pneumonia community-acquired pending procalcitonin level normal and patient will not require antibiotics on discharge. Generalized weakness secondary to above patient will need to be evaluated by PT and OT prior to discharge home. History of COPD with no acute exacerbation History of prostate cancer s/p radiation and history of chronic hydronephrosis patient self caths; and has an indwelling catheter placed this admission. On discharge the [place] catheter will be removed. History of underlying atrial fibrillation status post permanent pacemaker implantation back in 2011. Patient is anticoagulant with warfarin on an outpatient basis INR today is 2.3. Warfarin has been continued. History of hyperlipidemia maintained on statin therapy which is been resumed Hypertension maintained on lisinopril and metoprolol which have been continued Permanent pacemaker Former smoker Discharge Disposition Patient is stable for discharge home. He would not require any antibiotics on discharge as mentioned. The indwelling catheter will be removed and patient will continue to self cath once he returns home. Recommending close follow-up with his car conditioner Dr. MIGDALIA Nation on discharge in 1 to 2 weeks. Patient also follow-up with his primary care provider Dr. Jeison Reyes on discharge in 1 to 2 days. Patient should also follow-up with his urologist. Hospital Course This is a pleasant 83-year-old male with medical history significant for prostate cancer requiring intermittent straight catheterization 4 times a day, atrial fibrillation anticoagulated with warfarin on outpatient basis, permanent pacemaker, stroke, hypertension, hyperlipidemia, former smoker. Patient present s to the hospital secondary to increased weakness at home states that he was unable to get out of bed and ambulate he denies any chest pain denies shortness of breath no nausea vomiting or diarrhea he denies any dizziness or lightheadedness. He denies any dysuria urgency burning or frequency. He is not having any orthopnea. Does report having some cough at home but not bringing up any phlegm. Was brought into the hospital for further evaluation. A chest x-ray done shows cardiomegaly with mild possible interstitial edema and small effusions correlate clinically for mild CHF there is COPD noted, there is airspace opacity the right lung base concerning for pneumonia. Personal exam of the chest x-ray it appears more as an underlying pneumonia versus CHF. Patient had an indwelling catheter placed on admission secondary to his chronic retention and intermittent catheterizations. Patient had a white blood cell count 11.2, INR today is 2.3. On admission BUN 31, creatinine 1.75. Patient was admitted to the hospital under medicine and has been started empirically on IV ceftriaxone. His proBNP level comes back elevated over 8000 and patient did receive IV Lasix with improvement in his shortness of breath. His procalcitonin level was normal and patient will not require antibiotics. This is likely a viral pneumonia contributing to his generalized weakness. Patient does state that his was sick last week with a cold. His urine culture was negative and indwelling catheter will be removed on discharge. Patient has been up ambulating without difficulty and states that he is comfortable discharging home. He is not reporting any chest discomfort no shortness of breath no nausea vomiting or diarrhea. He is alert x 3 with no focal neurological deficits. Patient will be discharged home. Patient is instructed to follow-up with his car conditioner in 1 to 2 weeks. Please see medication reconciliation for a list of current medications. Thank you for allowing us to participate in the care of this patient. The impression and plan of care has been dictated by Estela Albrecht, Nurse Practitioner as directed. Dr. Ck MD I have performed a history and physical examination and medical decision making of this patient, discussed the same with the dictator, and agree with the dictators assessment and plan as written, documented as a scribe. Based on total visit time, I have performed more than 50% of this visit. Patient Condition at Discharge: Stable Plan - Discharge Summary Discharge Rx Participant: No New Discharge Prescriptions: New ramipriL [Altace] 5 mg PO DAILY #30 cap Continue Isosorbide Mononitrate [Imdur] 60 mg PO HS Warfarin [Coumadin] 2.5 mg PO MO@1800 Aspirin 81 mg PO DAILY@0730 Digoxin [Lanoxin] 125 mcg PO HS Simvastatin [Zocor] 40 mg PO HS Warfarin [Coumadin] 1.25 mg PO SUTUWETHFRSA@1800 Tamsulosin [Flomax] 0.4 mg PO BID-W/MEALS Metoprolol Tartrate [Lopressor] 75 mg PO BID@0730,1800 Vitamin B Complex 1 cap PO MOTH Cyanocobalamin (Vitamin B-12) [Vitamin B-12] 1,000 mcg PO DAILY Gabapentin 600 mg PO HS Cholecalciferol (Vitamin D3) [Vitamin D3 (50 Mcg = 2000 Iu)] 50 mcg PO DAILY Discontinued ramipriL [Altace] 10 mg PO DAILY@1800 Trimethoprim [Trimpex] 100 mg PO DAILY@0730 Discharge Medication List Aspirin 81 mg PO DAILY@0730 09/02/13 [History] Digoxin [Lanoxin] 125 mcg PO HS 09/02/13 [History] Isosorbide Mononitrate [Imdur] 60 mg PO HS 09/02/13 [History] Simvastatin [Zocor] 40 mg PO HS 09/02/13 [History] Warfarin [Coumadin] 2.5 mg PO MO@1800 09/02/13 [History] Warfarin [Coumadin] 1.25 mg PO SUTUWETHFRSA@1800 03/06/18 [History] Tamsulosin [Flomax] 0.4 mg PO BID-W/MEALS 09/03/19 [History] Metoprolol Tartrate [Lopressor] 75 mg PO BID@0730,1800 04/20/20 [History] Cholecalciferol (Vitamin D3) [Vitamin D3 (50 Mcg = 2000 Iu)] 50 mcg PO DAILY 08/25/23 [History] Cyanocobalamin (Vitamin B-12) [Vitamin B-12] 1,000 mcg PO DAILY 08/25/23 [History] Gabapentin 600 mg PO HS 08/25/23 [History] Vitamin B Complex 1 cap PO MOTH 08/25/23 [History] ramipriL [Altace] 5 mg PO DAILY #30 cap 08/26/23 [Rx] Follow up Appointment(s)/Referral(s): Jeison Reyes MD [Primary Care Provider] - 1-2 days Eduar Nation MD [STAFF PHYSICIAN] - 1 Week Jonas Padilla MD [STAFF PHYSICIAN] - 1 Week Ambulatory/Diagnostic Orders: Basic Metabolic Panel [LAB.AMB] Time Frame: 3 Days, Location: None Selected Patient Instructions/Handouts: Ramipril (By mouth) Discharge Disposition: HOME SELF-CARE
[2023-08-27] MEDS ORDERED: NON FORMULARY DRUG (Vitamin B Complex [Vitamin B Complex] 1 EACH Capsule) PO SCH (09:25)
== END 2023-08-26 16:46 | disposition home or self-care (01) ==
LOC: EC 20:12 → 5NMEDONC 08-25 01:08
PROVIDERS: ADMIT Hospitalist; ATTEND Hospitalist
DX: I11.0 Hypertensive heart disease with heart failure (principal); I50.43 Acute on chronic combined systolic (congestive) and diastolic (congestive) heart failure; R53.1 Weakness; J44.9 Chronic obstructive pulmonary disease, unspecified; I48.91 Unspecified atrial fibrillation; E78.5 Hyperlipidemia, unspecified; Z85.46 Personal history of malignant neoplasm of prostate; Z86.73 Personal history of transient ischemic attack (TIA), and cerebral infarction without residual deficits; Z87.891 Personal history of nicotine dependence; Z95.0 Presence of cardiac pacemaker; Z92.3 Personal history of irradiation; Z79.82 Long term (current) use of aspirin; Z79.01 Long term (current) use of anticoagulants; Z79.899 Other long term (current) drug therapy
CPT/HCPCS: 96366; 96375; 96365; 96367; 99285; 36415; 94760; 83880; 80053; 80048; 87449; 80162; 85025; 85610 ×2; 81001; 87040; 87086; 84145; 87636; 71046; G0378 ×2; J1940; J0456; J0696 ×2

== ENCOUNTER 2023-09-20 22:59 | Emergency (ER) | payer MEDICARE ==
[2023-09-20 23:21] VITALS: RESP 16; TEMP 99.4
[2023-09-21] MEDS: SODIUM CHLORIDE 0.9% 500 ML 500 ML IV STA (02:03)
[2023-09-21 02:12] LABS: Basophils % (A) 0 %; Eosinophils # (A) 0.2 k/uL (0-0.7); Eosinophils % (A) 2 %; HCT 46.3 % (39.0-53.0); HGB 14.5 gm/dL (13.0-17.5); Lymphocytes # (A) 0.6 k/uL (1.0-4.8); Lymphocytes % (A) 5 %; MCH 28.7 pg (25.0-35.0); MCHC 31.2 g/dL (31.0-37.0); MCV 92.1 fL (80.0-100.0); Mean Platelet Volume 8.5; Monocytes % (A) 8 %; Neutrophils # (A) 10.1 k/uL (1.3-7.7); Neutrophils % (A) 85 %; Platelet Count 149 k/uL (150-450); RBC 5.03 m/uL (4.30-5.90); RDW 13.2 % (11.5-15.5)
[2023-09-21 02:28] LABS: Amorphous Sediment,Urine Occasional /hpf; Appearance,Urine Cloudy (Clear); Bacteria,Urine Moderate /hpf; Bilirubin,Urine Negative (Negative); Blood,Urine Small (Negative); Color,Urine Light Yellow; Glucose,Urine (UA) Trace (Negative); Hyaline Casts,Urine 4 /lpf (0-2); Ketones,Urine Negative (Negative); Leukocyte Esterase,Urine Large (Negative); Mucus,Urine Rare /hpf; Nitrite,Urine Negative (Negative); Protein,Urine 1+ (Negative); RBC,Urine 26 /hpf (0-5); Specific Gravity,Urine 1.013 (1.001-1.035); Squamous Epithelial Cell,Urine 3 /hpf (0-4); Urobilinogen,Urine <2.0 mg/dL (<2.0); WBC,Urine >182 /hpf (0-5)
--- NOTE | 2023-09-21 02:53 | ED ---
General Adult HPI - General Chief complaint: Urogenital Stated complaint: weakness chills Time Seen by Provider: 09/20/23 23:58 Source: patient Mode of arrival: wheelchair Limitations: no limitations - History of Present Illness Initial comments: This patient is an 83-year-old man who presents to have evaluation for suspected urinary tract infection. The patient states that he does perform intermittent straight cath, and is having similar symptoms to previous UTI. The patient states he has been having some low-grade temperatures. Patient also having some generalized weakness and fatigue. He has not noted definite hematuria. No abdominal or back pain. Onset/Timin -: hour(s) Severity scale (1-10): 0 Consistency: constant Improves with: none Worsens with: none Associated Symptoms: weakness Treatments Prior to Arrival: none - Related Data Home Medications Medication Instructions Recorded Confirmed Aspirin 81 mg PO DAILY@0730 09/02/13 08/25/23 Digoxin [Lanoxin] 125 mcg PO HS 09/02/13 08/25/23 Isosorbide Mononitrate [Imdur] 60 mg PO HS 09/02/13 08/25/23 Simvastatin [Zocor] 40 mg PO HS 09/02/13 08/25/23 Warfarin [Coumadin] 2.5 mg PO MO@1800 09/02/13 08/25/23 Warfarin [Coumadin] 1.25 mg PO SUTUWETHFRSA@1800 03/06/18 08/25/23 Tamsulosin [Flomax] 0.4 mg PO BID-W/MEALS 09/03/19 08/25/23 Metoprolol Tartrate [Lopressor] 75 mg PO BID@0730,1800 04/20/20 08/25/23 Cholecalciferol (Vitamin D3) 50 mcg PO DAILY 08/25/23 08/25/23 [Vitamin D3 (50 Mcg = 2000 Iu)] Cyanocobalamin (Vitamin B-12) 1,000 mcg PO DAILY 08/25/23 08/25/23 [Vitamin B-12] Gabapentin 600 mg PO HS 08/25/23 08/25/23 Vitamin B Complex 1 cap PO MOTH 08/25/23 08/25/23 Previous Rx's Medication Instructions Recorded ramipriL [Altace] 5 mg PO DAILY #30 cap 08/26/23 Ciprofloxacin HCl [Cipro] 500 mg PO Q12HR #28 tablet 09/21/23 Allergies Allergy/AdvReac Type Severity Reaction Status Date / Time No Known Allergies Allergy Verified 08/25/23 09:07 Review of Systems ROS Statement: Those systems with pertinent positive or pertinent negative responses have been documented in the HPI. ROS Other: All systems not noted in ROS Statement are negative. Constitutional: Reports: fever, weakness ENT: Denies: congestion Respiratory: Denies: cough, dyspnea Cardiovascular: Denies: chest pain, palpitations, edema Gastrointestinal: Denies: abdominal pain, nausea, vomiting, diarrhea Genitourinary: Reports: as per HPI. Denies: dysuria, hematuria Musculoskeletal: Denies: back pain Skin: Denies: rash Neurological: Denies: headache, weakness Past Medical History Past Medical History: Atrial Fibrillation, Cancer, CVA/TIA, Hyperlipidemia, Hypertension, Osteoarthritis (OA), Prostate Disorder, Thyroid Disorder Additional Past Medical History / Comment(s): MS, hx. prostate cancer 2014-had radiation. Generator change-01/14/2019 PACEMAKER ONLY, NO DEFIBRILLATOR Last Myocardial Infarction Date:: unk DATE History of Any Multi-Drug Resistant Organisms: None Reported Past Surgical History: Back Surgery, Heart Catheterization, Hernia Repair, Pacemaker Additional Past Surgical History / Comment(s): PACEMAKER, Generator change- 01/14/2019 Past Anesthesia/Blood Transfusion Reactions: No Reported Reaction Type of Cardiac Device: Permanent Pacemaker Device Placement Date:: 05/02/11 Past Psychological History: No Psychological Hx Reported Smoking Status: Never smoker Past Alcohol Use History: Occasional Past Drug Use History: None Reported - Past Family History Mother Family Medical History: No Reported History Sister(s) Family Medical History: Cancer Additional Family Medical History / Comment(s): melanoma Father Family Medical History: Myocardial Infarction (MT) General Exam Limitations: no limitations General appearance: alert, in no apparent distress Head exam: Present: atraumatic, normocephalic Eye exam: Present: normal appearance. Absent: scleral icterus, conjunctival injection ENT exam: Present: normal oropharynx Neck exam: Present: normal inspection Respiratory exam: Present: normal lung sounds bilaterally. Absent: respiratory distress, wheezes, rales, rhonchi, stridor, accessory muscle use Cardiovascular Exam: Present: regular rate, normal rhythm, normal heart sounds. Absent: systolic murmur, diastolic murmur, rubs, gallop GI/Abdominal exam: Present: soft. Absent: distended, tenderness, guarding, lois ound, rigid, mass Extremities exam: Present: normal inspection, normal capillary refill. Absent: pedal edema, calf tenderness Back exam: Present: normal inspection. Absent: CVA tenderness (R), CVA tenderness (L) Neurological exam: Present: alert Skin exam: Present: warm, dry, intact, normal color. Absent: rash Course Vital Signs 09/20/23 09/21/23 23:07 03:08 Temperature 99.4 F Pulse Rate 68 88 Respiratory 16 16 Rate Blood Pressure 160/75 161/83 O2 Sat by Pulse 97 95 Oximetry Medical Decision Making - Medical Decision Making Patient is an 83-year-old man presenting with some fevers and fatigue at home. Found to have urinary tract infection. Given patient's age and comorbidities, did offer admission but he is feeling he would like to try outpatient course of medication. He is started on antibiotics and will have close follow-up. Was pt. sent in by a medical professional or institution (, PA, TOE PULLER, urgent care, hospital, or long-term...) When possible be specific @ -[No] Did you speak to anyone other than the patient for history (EMS, parent, family, police, friend...)? What history was obtained from this source @ -[Family contributed history Did you review nursing and triage notes (agree or disagree)? Why? @ -[I reviewed and agree with nursing and triage notes] Were old charts reviewed (outside hosp., previous admission, EMS record, old EKG , old radiological studies, urgent care reports/EKG's, long-term records)? Report findings @ -[No old charts were reviewed] Differential Diagnosis (chest pain, altered mental status, abdominal pain women, abdominal pain men, vaginal bleeding, weakness, fever, dyspnea, syncope, headache, dizziness, GI bleed, back pain, seizure, CVA, palpatations, mental health, musculoskeletal)? @ -[Differential Weakness: Hypoglycemia, shock, sepsis, hyponatremia, anemia, infection, MT, ETOH, adverse medicine reaction, overdose, stroke, this is not meant to be an all-inclusive list. EKG interpreted by me (3pts min.). @ -[As above] X-rays interpreted by me (1pt min.). @ -[None done] CT interpreted by me (1pt min.). @ -[None done] U/S interpreted by me (1pt. min.). @ -[None done] What testing was considered but not performed or refused? (CT, X-rays, U/S, labs)? Why? @ -[None] What meds were considered but not given or refused? Why? @ -[None] Did you discuss the management of the patient with other professionals (professionals i.e. , PA, TOE PULLER, lab, RT, psych nurse, social services analyst, blower blast furnace, t eacher, agricultural extension officer, clinical case manager)? Give summary @ -[No] Was smoking cessation discussed for >3mins.? @ -[No] Was critical care preformed (if so, how long)? @ -[No] Were there social determinants of health that impacted care today? How? (Homelessness, low income, unemployed, alcoholism, drug addiction, transportation, low edu. Level, literacy, decrease access to med. care, halfway, rehab)? @ -[No] Was there de-escalation of care discussed even if they declined (Discuss DNR or withdrawal of care, Hospice)? DNR status @ -[No] What co-morbidities impacted this encounter? (DM, HTN, Smoking, COPD, CAD, Cancer, CVA, ARF, Chemo, Hep., AIDS, mental health diagnosis, sleep apnea, morbid obesity)? @ -[Hypertension, history of atrial fibrillation, history of prostate cancer Was patient admitted / discharged? Hospital course, mention meds given and route, prescriptions, significant lab abnormalities, going to OR and other pertinent info. @ -[As above Undiagnosed new problem with uncertain prognosis? @ -[No] Drug Therapy requiring intensive monitoring for toxicity (Heparin, Nitro, Insulin, Cardizem)? @ -[No] Were any procedures done? @ -[No] Diagnosis/symptom? @ -[Acute urinary tract infection Acute, or Chronic, or Acute on Chronic? @ -[Acute Uncomplicated (without systemic symptoms) or Complicated (systemic symptoms)? @ -[Complicated by generalized weakness Side effects of treatment? @ -[No] Exacerbation, Progression, or Severe Exacerbation? @ -[No] Poses a threat to life or bodily function? How? (Chest pain, USA, MT, pneumonia, PE, COPD, DKA, ARF, appy, cholecystitis, CVA, Diverticulitis, Homicidal, Suicidal, threat to staff... and all critical care pts) @ -[No] - Lab Data Result diagrams: 09/21/23 01:43 09/21/23 01:43 Lab Results 09/21/23 09/21/23 09/21/23 Range/Units 01:43 01:43 01:43 WBC 12.0 H (3.8-10.6) k/uL RBC 5.03 (4.30-5.90) m/uL Hgb 14.5 (13.0-17.5) gm/dL Hct 46.3 (39.0-53.0) % MCV 92.1 (80.0-100.0) fL MCH 28.7 (25.0-35.0) pg MCHC 31.2 (31.0-37.0) g/dL RDW 13.2 (11.5-15.5) % Plt Count 149 L (150-450) k/uL MPV 8.5 Neutrophils % 85 % Lymphocytes % 5 % Monocytes % 8 % Eosinophils % 2 % Basophils % 0 % Neutrophils # 10.1 H (1.3-7.7) k/uL Lymphocytes # 0.6 L (1.0-4.8) k/uL Monocytes # 1.0 (0-1.0) k/uL Eosinophils # 0.2 (0-0.7) k/uL Basophils # 0.0 (0-0.2) k/uL Sodium TOE PULLER Plasma Lactic Acid Justino 1.2 (0.7-2.0) mmol/L Urine Color Urine Appearance (Clear) Urine pH (5.0-8.0) Ur Specific Dodge (1.001-1.035) Urine Protein (Negative) Urine Glucose (UA) (Negative) Urine Ketones (Negative) Urine Blood (Negative) Urine Nitrite (Negative) Urine Bilirubin (Negative) Urine Urobilinogen (<2.0) mg/dL Ur Leukocyte Esterase (Negative) Urine RBC (0-5) /hpf Urine WBC (0-5) /hpf Urine WBC Clumps (None) /hpf Ur Squamous Epith Cells (0-4) /hpf Amorphous Sediment (None) /hpf Urine Bacteria (None) /hpf Hyaline Casts (0-2) /lpf Urine Mucus (None) /hpf 09/21/23 Range/Units 02:12 WBC (3.8-10.6) k/uL RBC (4.30-5.90) m/uL Hgb (13.0-17.5) gm/dL Hct (39.0-53.0) % MCV (80.0-100.0) fL MCH (25.0-35.0) pg MCHC (31.0-37.0) g/dL RDW (11.5-15.5) % Plt Count (150-450) k/uL MPV Neutrophils % % Lymphocytes % % Monocytes % % Eosinophils % % Basophils % % Neutrophils # (1.3-7.7) k/uL Lymphocytes # (1.0-4.8) k/uL Monocytes # (0-1.0) k/uL Eosinophils # (0-0.7) k/uL Basophils # (0-0.2) k/uL Sodium Plasma Lactic Acid Justino (0.7-2.0) mmol/L Urine Color Light Yellow Urine Appearance Cloudy (Clear) Urine pH 7.0 (5.0-8.0) Ur Specific [place] 1.013 (1.001-1.035) Urine Protein 1+ H (Negative) Urine Glucose (UA) Trace H (Negative) Urine Ketones Negative (Negative) Urine Blood Small H (Negative) Urine Nitrite Negative (Negative) Urine Bilirubin Negative (Negative) Urine Urobilinogen <2.0 (<2.0) mg/dL Ur Leukocyte Esterase Large H (Negative) Urine RBC 26 H (0-5) /hpf Urine WBC >182 H (0-5) /hpf Urine WBC Clumps Few H (None) /hpf Ur Squamous Epith Cells 3 (0-4) /hpf Amorphous Sediment Occasional H (None) /hpf Urine Bacteria Moderate H (None) /hpf Hyaline Casts 4 H (0-2) /lpf Urine Mucus Rare H (None) /hpf Disposition Clinical Impression: UTI (urinary tract infection) Disposition: HOME SELF-CARE Condition: Good Instructions (If sedation given, give patient instructions): Urinary Tract Infection in Men (ED) Prescriptions: Ciprofloxacin HCl [Cipro] 500 mg PO Q12HR #28 tablet Is patient prescribed a controlled substance at d/c from ED?: No Referrals: Jeison Reyes MD [Primary Care Provider] - 1-2 days
[2023-09-21] MEDS: LEVOFLOXACIN 750 MG TAB PO STA (03:14)
[2023-09-21 03:28] VITALS: BP 161/83; PULSE 88
== END 2023-09-21 03:08 | disposition home or self-care (01) ==
LOC: EC 22:59
DX: N39.0 Urinary tract infection, site not specified (principal)
CPT/HCPCS: 36415; 80053; 81001; 83605; 83735; 85025; 87040; 87086; 96360; 99283

== ENCOUNTER 2024-02-21 18:48 | Inpatient (IN) | payer MEDICARE ==
--- NOTE | 2024-02-21 19:24 | ED ---
General Adult HPI - General Chief complaint: Fall Stated complaint: weakness Time Seen by Provider: 02/21/24 18:50 Source: patient, EMS, RN notes reviewed, old records reviewed Limitations: no limitations - History of Present Illness Initial comments: This is an 83-year-old male who presents to the emergency department complaining of being weak. Patient states he has a longstanding history of urinary tract infection secondary to the fact that he self cath. Patient states today he all of a sudden got really weak and he was on the commode and was unable to stand up so he just sat himself to the ground easily. Patient states he was unable to get up initially called EMS. Patient denies any head trauma or any neck trauma patient denies any injury or any area of pain at this time. Patient states there is a little discomfort in his lower abdomen but is not significant pain. Patient has any back pain. Patient denies any dysuria hematuria. Patient has any fever chills. Patient [place] any cough sore throat. - Related Data Home Medications Medication Instructions Recorded Confirmed Aspirin 81 mg PO DAILY@0730 09/02/13 08/25/23 Digoxin [Lanoxin] 125 mcg PO HS 09/02/13 08/25/23 Isosorbide Mononitrate [Imdur] 60 mg PO HS 09/02/13 08/25/23 Simvastatin [Zocor] 40 mg PO HS 09/02/13 08/25/23 Warfarin [Coumadin] 2.5 mg PO MO@1800 09/02/13 08/25/23 Warfarin [Coumadin] 1.25 mg PO SUTUWETHFRSA@1800 03/06/18 08/25/23 Tamsulosin [Flomax] 0.4 mg PO BID-W/MEALS 09/03/19 08/25/23 Metoprolol Tartrate [Lopressor] 75 mg PO BID@0730,1800 04/20/20 08/25/23 Cholecalciferol (Vitamin D3) 50 mcg PO DAILY 08/25/23 08/25/23 [Vitamin D3 (50 Mcg = 2000 Iu)] Cyanocobalamin (Vitamin B-12) 1,000 mcg PO DAILY 08/25/23 08/25/23 [Vitamin B-12] Gabapentin 600 mg PO HS 08/25/23 08/25/23 Vitamin B Complex 1 cap PO MOTH 08/25/23 08/25/23 Previous Rx's Medication Instructions Recorded ramipriL [Altace] 5 mg PO DAILY #30 cap 08/26/23 Ciprofloxacin HCl [Cipro] 500 mg PO Q12HR #28 tablet 09/21/23 Allergies Allergy/AdvReac Type Severity Reaction Status Date / Time No Known Allergies Allergy Verified 02/21/24 18:55 Review of Systems ROS Statement: Those systems with pertinent positive or pertinent negative responses have been documented in the HPI. ROS Other: All systems not noted in ROS Statement are negative. Past Medical History Past Medical History: Atrial Fibrillation, Cancer, CVA/TIA, Hyperlipidemia, Hypertension, Osteoarthritis (OA), Prostate Disorder, Thyroid Disorder Additional Past Medical History / Comment(s): MS, hx. prostate cancer 2014-had radiation. Generator change-01/14/2019 PACEMAKER ONLY, NO DEFIBRILLATOR Last Myocardial Infarction Date:: unk DATE History of Any Multi-Drug Resistant Organisms: None Reported Past Surgical History: Back Surgery, Heart Catheterization, Hernia Repair, Pacemaker Additional Past Surgical History / Comment(s): PACEMAKER, Generator change- 01/14/2019 Past Anesthesia/Blood Transfusion Reactions: No Reported Reaction Type of Cardiac Device: Permanent Pacemaker Device Placement Date:: 05/02/11 Past Psychological History: No Psychological Hx Reported Smoking Status: Never smoker Past Alcohol Use History: Occasional Past Drug Use History: None Reported - Past Family History Mother Family Medical History: No Reported History Sister(s) Family Medical History: Cancer Additional Family Medical History / Comment(s): melanoma Father Family Medical History: Myocardial Infarction ([place]) General Exam - General Exam Comments Initial Comments: GENERAL: Patient is well-developed and well-nourished. Patient is nontoxic and well- hydrated and is in mild distress. ENT: Neck is soft and supple. No significant lymphadenopathy is noted. Oropharynx is clear. Moist mucous membranes. Neck has full range of motion without eliciting any pain. EYES: The sclera were anicteric and conjunctiva were pink and moist. Extraocular movements were intact and pupils were equal round and reactive to light. Eyelids were unremarkable. PULMONARY: Unlabored respirations. Good breath sounds bilaterally. No audible rales rhonchi or wheezing was noted. CARDIOVASCULAR: There is a regular rate and rhythm without any murmurs gallops or rubs. ABDOMEN: Mild suprapubic tenderness SKIN: Skin is clear with no lesions or rashes and otherwise unremarkable. NEUROLOGIC: Patient is alert and oriented x3. Cranial nerves II through XII are grossly intact. Motor and sensory are also intact. Normal speech, volume and content. Symmetrical smile. MUSCULOSKELETAL: Normal extremities with adequate strength and full range of motion. LYMPHATICS: No significant lymphadenopathy is noted PSYCHIATRIC: Normal psychiatric evaluation. Limitations: no limitations Course Vital Signs 02/21/24 02/21/24 18:50 20:00 Temperature 100.4 F H 100.3 F H Pulse Rate 68 69 Respiratory 18 18 Rate Blood Pressure 135/73 137/60 O2 Sat by Pulse 94 L 95 Oximetry Medical Decision Making - Medical Decision Making EKG is interpreted by myself but EKG shows an electronically paced rhythm at 66 bpm QRS is 174 QT interval is 428 QTc is 442. Was pt. sent in by a medical professional or institution (MAIKOL Durán, MAIL HANDLER EQUIPMENT OPERATOR, urgent care, hospital, or [facility]...) When possible be specific @ -No Did you speak to anyone other than the patient for history (EMS, parent, family, police, friend...)? What history was obtained from this source @ -No Did you review nursing and triage notes (agree or disagree)? Why? @ -I reviewed and agree with nursing and triage notes Were old charts reviewed (outside hosp., previous admission, EMS record, old EKG, old radiological studies, urgent care reports/EKG's, [facility] records)? Report findings @ -No old charts were reviewed Differential Diagnosis? @ -Differential Weakness: Hypoglycemia, shock, sepsis, hyponatremia, anemia, infection, NV, ETOH, adverse medicine reaction, overdose, stroke, this is not meant to be an all-inclusive list. EKG interpreted by me (3pts min.). @ -As above X-rays interpreted by me (1pt min.). @ -Chest x-ray shows no acute abnormality CT interpreted by me (1pt min.). @ -None done U/S interpreted by me (1pt. min.). @ -None done What testing was considered but not performed or refused? (CT, X-rays, U/S, labs)? Why? @ -None What meds were considered but not given or refused? Why? @ -None Did you discuss the management of the patient with other professionals (professionals i.e. MAIKOL Durán, MAIL HANDLER EQUIPMENT OPERATOR, lab, RT, psych nurse, manager social media, ground operations crew member, teacher, investigation officer, pillowcase folder)? Give summary @ -I spoke with [facility] hospitalist agreed to admit the patient admit the patient with admitting orders Was smoking cessation discussed for >3mins.? @ -No Was critical care preformed (if so, how long)? @ -No Were there social determinants of health that impacted care today? How? (Maryan elessness, low income, unemployed, alcoholism, drug addiction, transportation, low edu. Level, literacy, decrease access to med. care, retirement, rehab)? @ -No Was there de-escalation of care discussed even if they declined (Discuss DNR or withdrawal of care, Hospice)? DNR status @ -No What co-morbidities impacted this encounter? (DM, HTN, Smoking, COPD, CAD, Cancer, CVA, ARF, Chemo, Hep., AIDS, mental health diagnosis, sleep apnea, morbid obesity)? @ -None Was patient admitted / discharged? Hospital course, mention meds given and route, prescriptions, significant lab abnormalities, going to OR and other pertinent info. @ -Patient received antibiotics in the emergency department and some fluid ho wever he is continued to feel weak and did not feel comfortable going home and his is also in the hospital at this time. Undiagnosed new problem with uncertain prognosis? @ -No Drug Therapy requiring intensive monitoring for toxicity (Heparin, Nitro, Insulin, Cardizem)? @ -No Were any procedures done? @ -No Diagnosis/symptom? @ -Generalized weakness Acute, or Chronic, or Acute on Chronic? @ -Acute Uncomplicated (without systemic symptoms) or Complicated (systemic symptoms)? @ -Complicated Side effects of treatment? @ -No Exacerbation, Progression, or Severe Exacerbation? @ -No Poses a threat to life or bodily function? How? (Chest pain, USA, NV, pneumonia, PE, COPD, DKA, ARF, appy, cholecystitis, CVA, Diverticulitis, Homicidal, Suicidal, threat to staff... and all critical care pts) @ -No Diagnosis/symptom? @ -Urinary tract Acute, or Chronic, or Acute on Chronic? @ -Acute Uncomplicated (without systemic symptoms) or Complicated (systemic symptoms)? @ -Complicated Side effects of treatment? @ -None Exacerbation, Progression, or Severe Exacerbation] @ -No Poses a threat to life or bodily function? @ -No - Lab Data Result diagrams: 02/21/24 19:42 02/21/24 19:42 Lab Results 02/21/24 02/21/24 02/21/24 Range/Units 19:42 19:42 19:42 WBC 13.8 H (3.8-10.6) k/uL RBC 4.52 (4.30-5.90) m/uL Hgb 13.5 (13.0-17.5) gm/dL Hct 41.9 (39.0-53.0) % MCV 92.5 (80.0-100.0) fL MCH 29.9 (25.0-35.0) pg MCHC 32.3 (31.0-37.0) g/dL RDW 13.1 (11.5-15.5) % Plt Count 132 L (150-450) k/uL MPV 7.5 Neutrophils % 86 % Lymphocytes % 4 % Monocytes % 7 % Eosinophils % 2 % Basophils % 0 % Neutrophils # 11.9 H (1.3-7.7) k/uL Lymphocytes # 0.6 L (1.0-4.8) k/uL Monocytes # 0.9 (0-1.0) k/uL Eosinophils # 0.3 (0-0.7) k/uL Basophils # 0.0 (0-0.2) k/uL PT 29.6 H (10.0-12.5) sec INR 3.0 H (<1.2) APTT 35.2 H (22.0-30.0) sec Sodium 137 (137-145) mmol/L Potassium 4.6 (3.5-5.1) mmol/L Chloride 103 (98-107) mmol/L Carbon Dioxide 25 (22-30) mmol/L Anion Gap 9 mmol/L BUN 29 H (9-20) mg/dL Creatinine 1.87 H (0.66-1.25) mg/dL Est GFR (CKD-EPI)AfAm 38 (>60 ml/min/1.73 sqM) Est GFR (CKD-EPI)NonAf 33 (>60 ml/min/1.73 sqM) Glucose 119 H (74-99) mg/dL Plasma Lactic Acid Justino (0.7-2.0) mmol/L Calcium 9.1 (8.4-10.2) mg/dL Magnesium 2.0 (1.6-2.3) mg/dL Total Bilirubin 1.1 (0.2-1.3) mg/dL AST 32 (17-59) U/L ALT 18 (4-49) U/L Alkaline Phosphatase 62 (38-126) U/L Troponin I (0.000-0.034) ng/mL Total Protein 7.0 (6.3-8.2) g/dL Albumin 4.6 (3.5-5.0) g/dL Urine Color Urine Appearance (Clear) Urine pH (5.0-8.0) Ur Specific Superior (1.001-1.035) Urine Protein (Negative) Urine Glucose (UA) (Negative) Urine Ketones (Negative) Urine Blood (Negative) Urine Nitrite (Negative) Urine Bilirubin (Negative) Urine Urobilinogen (<2.0) mg/dL Ur Leukocyte Esterase (Negative) Urine RBC (0-5) /hpf Urine WBC (0-5) /hpf Ur Squamous Epith Cells (0-4) /hpf Urine Bacteria (None) /hpf Urine Mucus (None) /hpf Urine Yeast (Budding) (None) /hpf 02/21/24 02/21/24 02/21/24 Range/Units 19:42 19:42 20:37 WBC (3.8-10.6) k/uL RBC (4.30-5.90) m/uL Hgb (13.0-17.5) gm/dL Hct (39.0-53.0) % MCV (80.0-100.0) fL MCH (25.0-35.0) pg MCHC (31.0-37.0) g/dL RDW (11.5-15.5) % Plt Count (150-450) k/uL MPV Neutrophils % % Lymphocytes % % Monocytes % % Eosinophils % % Basophils % % Neutrophils # (1.3-7.7) k/uL Lymphocytes # (1.0-4.8) k/uL Monocytes # (0-1.0) k/uL Eosinophils # (0-0.7) k/uL Basophils # (0-0.2) k/uL PT (10.0-12.5) sec INR (<1.2) APTT (22.0-30.0) sec Sodium (137-145) mmol/L Potassium (3.5-5.1) mmol/L Chloride (98-107) mmol/L Carbon Dioxide (22-30) mmol/L Anion Gap mmol/L BUN (9-20) mg/dL Creatinine (0.66-1.25) mg/dL Est GFR (CKD-EPI)AfAm (>60 ml/min/1.73 sqM) Est GFR (CKD-EPI)NonAf (>60 ml/min/1.73 sqM) Glucose (74-99) mg/dL Plasma Lactic Acid Justino 1.1 (0.7-2.0) mmol/L Calcium (8.4-10.2) mg/dL Magnesium (1.6-2.3) mg/dL Total Bilirubin (0.2-1.3) mg/dL AST (17-59) U/L ALT (4-49) U/L Alkaline Phosphatase (38-126) U/L Troponin I 0.025 (0.000-0.034) ng/mL Total Protein (6.3-8.2) g/dL Albumin (3.5-5.0) g/dL Urine Color Light Yellow Urine Appearance Clear (Clear) Urine pH 6.5 (5.0-8.0) Ur Specific Superior 1.016 (1.001-1.035) Urine Protein Negative (Negative) Urine Glucose (UA) Negative (Negative) Urine Ketones Negative (Negative) Urine Blood Large H (Negative) Urine Nitrite Negative (Negative) Urine Bilirubin Negative (Negative) Urine Urobilinogen <2.0 (<2.0) mg/dL Ur Leukocyte Esterase Moderate H (Negative) Urine RBC 36 H (0-5) /hpf Urine WBC 33 H (0-5) /hpf Ur Squamous Epith Cells 1 (0-4) /hpf Urine Bacteria Rare H (None) /hpf Urine Mucus Rare H (None) /hpf Urine Yeast (Budding) Occasional H (None) /hpf Disposition Clinical Impression: UTI (urinary tract infection), Generalized weakness Disposition: ADMITTED IP TO THIS [facility] Referrals: Jeison Reyes MD [Primary Care Provider] - 1-2 days Time of Disposition: 21:33
[2024-02-21 19:54] LABS: Basophils % (A) 0 %; Eosinophils # (A) 0.3 k/uL (0-0.7); Eosinophils % (A) 2 %; HCT 41.9 % (39.0-53.0); HGB 13.5 gm/dL (13.0-17.5); Lymphocytes # (A) 0.6 k/uL (1.0-4.8); Lymphocytes % (A) 4 %; MCH 29.9 pg (25.0-35.0); MCHC 32.3 g/dL (31.0-37.0); MCV 92.5 fL (80.0-100.0); Mean Platelet Volume 7.5; Monocytes # (A) 0.9 k/uL (0-1.0); Monocytes % (A) 7 %; Neutrophils # (A) 11.9 k/uL (1.3-7.7); Neutrophils % (A) 86 %; Platelet Count 132 k/uL (150-450); RBC 4.52 m/uL (4.30-5.90); RDW 13.1 % (11.5-15.5); WBC 13.8 k/uL (3.8-10.6)
[2024-02-21 20:12] LABS: ALT 18 U/L (4-49); AST 32 U/L (17-59); African American GFR (CKD) 38 (>60 ml/min/1.73 sqM); Albumin 4.6 g/dL (3.5-5.0); Alkaline Phosphatase 62 U/L (38-126); Anion Gap 9 mmol/L; Blood Urea Nitrogen 29 mg/dL (9-20); Calcium 9.1 mg/dL (8.4-10.2); Carbon Dioxide 25 mmol/L (22-30); Chloride 103 mmol/L (98-107); Glucose 119 mg/dL (74-99); Non-African American GFR(CKD) 33 (>60 ml/min/1.73 sqM); Potassium 4.6 mmol/L (3.5-5.1); Sodium 137 mmol/L (137-145); Total Bilirubin 1.1 mg/dL (0.2-1.3)
[2024-02-21 20:14] LABS: Partial Thromboplastin Time 35.2 sec (22.0-30.0); Prothrombin Time 29.6 sec (10.0-12.5)
[2024-02-21] MEDS: ACETAMINOPHEN TAB 500 MG TAB PO STA (20:17)
--- NOTE | 2024-02-21 20:44 | XR ---
EXAMINATION TYPE: XR chest 2V DATE OF EXAM: 02/21/2024 COMPARISON: 08/24/2023 INDICATION: Pt comes in from home for a fall at home. Pt denies hitting his head, pt denies head, nec k, pr back pain. Pt denies any LOC. Pt is on blood thinners. Increased weekend sine this afternoon, pt was on floor for about two hours. TECHNIQUE: Frontal and lateral views of the chest are obtained. FINDINGS: The heart size is enlarged. Pacemaker overlies the left chest. The pulmonary vasculature is normal. The lungs are clear. There is hyperinflation and flattening of the diaphragms compatible with COPD. IMPRESSION: 1. No acute pulmonary process. 2. COPD [facility], Workstation: [facility], 02/21/2024 8:42 PM
--- NOTE | 2024-02-21 20:46 | XR ---
EXAMINATION TYPE: XR knee complete RT DATE OF EXAM: 02/21/2024 COMPARISON: None HISTORY: Pt comes in from home for a fall at home. Pt denies hitting his head, pt denies head, neck, pr back pain. Pt denies any LOC. Pt is on blood thinners. Increased weekend sine this afternoon, pt was on floor for about two hours. TECHNIQUE: 3 view right knee FINDINGS: No acute fracture or dislocation. There is a small joint effusion. Vascular calcification i s present. Mild lateral compartment joint space narrowing is present. Posterior superior patellar spu r is present. Follow up exams can be performed as clinically indicated. IMPRESSION: 1. Small joint effusion. 2. No acute osseous abnormality. Follow-up as clinically indicated [facility], Workstation: [facility], 02/21/2024 8:44 PM
[2024-02-21 21:06] LABS: Appearance,Urine Clear (Clear); Bacteria,Urine Rare /hpf; Bilirubin,Urine Negative (Negative); Blood,Urine Large (Negative); Budding Yeast,Urine Occasional /hpf; Color,Urine Light Yellow; Glucose,Urine (UA) Negative (Negative); Ketones,Urine Negative (Negative); Leukocyte Esterase,Urine Moderate (Negative); Mucus,Urine Rare /hpf; Nitrite,Urine Negative (Negative); PH, Urine 6.5 (5.0-8.0); Protein,Urine Negative (Negative); RBC,Urine 36 /hpf (0-5); Specific Gravity,Urine 1.016 (1.001-1.035); Squamous Epithelial Cell,Urine 1 /hpf (0-4); Urobilinogen,Urine <2.0 mg/dL (<2.0); WBC,Urine 33 /hpf (0-5)
[2024-02-21] MEDS: cefTRIAXone IN SWFI 1,000 MG/10 ML SYRINGE IVP STA (22:02)
[2024-02-21] MEDS ORDERED: NALOXONE 0.4 MG/ML 1 ML VIAL IV PRN (23:06)
[2024-02-21] MEDS ORDERED: ACETAMINOPHEN TAB 325 MG TAB PO PRN (23:06)
[2024-02-21] MEDS: SODIUM CHLORIDE 0.9% 1,000 ML IV SCH (23:37)
[2024-02-22 08:59] LABS: Prothrombin Time 29.6 sec (10.0-12.5)
[2024-02-22 09:03] LABS: Basophils % (A) 0 %; Eosinophils # (A) 0.2 k/uL (0-0.7); Eosinophils % (A) 2 %; HCT 42.7 % (39.0-53.0); HGB 13.5 gm/dL (13.0-17.5); Lymphocytes # (A) 0.8 k/uL (1.0-4.8); Lymphocytes % (A) 7 %; MCH 29.6 pg (25.0-35.0); MCHC 31.7 g/dL (31.0-37.0); MCV 93.4 fL (80.0-100.0); Mean Platelet Volume 7.5; Monocytes % (A) 9 %; Neutrophils # (A) 8.8 k/uL (1.3-7.7); Neutrophils % (A) 80 %; Platelet Count 143 k/uL (150-450); RBC 4.57 m/uL (4.30-5.90); RDW 13.1 % (11.5-15.5)
[2024-02-22] MEDS: CHOLECALCIFEROL 25 MCG (1000 IU) TABLET PO SCH (09:29)
[2024-02-22] MEDS: ASPIRIN 81 MG PO SCH (09:29)
[2024-02-22] MEDS: CYANOCOBALAMIN 500 MCG TAB PO SCH (09:30)
[2024-02-22] MEDS: TAMSULOSIN 0.4 MG CAP.ER.24H PO SCH (09:30)
[2024-02-22] MEDS: METOPROLOL TARTRATE 50 MG TAB PO SCH (09:30)
[2024-02-22] MEDS: lisinopriL 20 MG TAB PO SCH (09:31)
[2024-02-22] MEDS: FAMOTIDINE 20 MG TAB PO SCH (09:31)
[2024-02-22 10:52] LABS: ALT 17 U/L (4-49); AST 26 U/L (17-59); African American GFR (CKD) 43 (>60 ml/min/1.73 sqM); Albumin 4.1 g/dL (3.5-5.0); Albumin/Globulin Ratio 1.7; Alkaline Phosphatase 61 U/L (38-126); Anion Gap 6 mmol/L; Blood Urea Nitrogen 24 mg/dL (9-20); Calcium 9.1 mg/dL (8.4-10.2); Carbon Dioxide 27 mmol/L (22-30); Chloride 106 mmol/L (98-107); Globulin 2.4 g/dL; Glucose 118 mg/dL (74-99); Non-African American GFR(CKD) 37 (>60 ml/min/1.73 sqM); Potassium 4.3 mmol/L (3.5-5.1); Sodium 139 mmol/L (137-145); Total Bilirubin 1.5 mg/dL (0.2-1.3); Total Protein 6.5 g/dL (6.3-8.2)
--- NOTE | 2024-02-22 15:27 | P.HPIM ---
History of Present Illness H&P Date: 02/22/24 Patient is a 83-year-old male with a atrial fibrillation on warfarin, with permanent pacemaker, history of CVA/TIA, hyperlipidemia, hypertension, prostate cancer with radiation in 2014 currently in remission, thyroid disorder, osteoarthritis presenting with generalized weakness. Typically ambulates with walker. He states his weakness started yesterday in the afternoon, while walking to his comode to urinate. Shortly after, he was not able to stand up. He slid down to the ground easily, and called EMS. Denies shortness of breath, chest pain, chills aches, nausea, vomiting, diarrhea, back, neck pain, cough, sore throat. Admits to fever. Admits to history of multiple UTI due self-catheterization. States he feels weaker every time he has a UTI. Patient denies dysuria, hematuria. EKG independently interpreted displays Tronic ventricular pacemaker, vent rate 66 bpm, QTc 442 MS CXR independently interpreted displays no acute pulmonary process Knee x-ray shows small joint effusion, no acute osseous abnormality WBC 11.0, Hgb 6.5, platelet 143, INR 3.0, BUN 24, creatinine 1.70 T97.9 F, ND 81, RR 16, BP 122/72, O2 sat 97% on room air ED documentation reviewed. Review of systems: Pertinent positives and negatives as discussed in HPI, a complete review of systems was performed and all other systems are negative. Social history: Tobacco: Former 1 pack a day smoker for 32 years, quit 29 years ago Alcohol: Occasional Recreational drugs: Denies illicit drug use Occupation: Retired Physical examination: Vital signs reviewed General: non toxic, no distress, appears at stated age, normal weight Derm: no unusual rashes/lesions, warm Head: atraumatic, normocephalic, symmetric Eyes: EOMI, anicteric sclera, pupils equal round reactive to light ENT: Nose and ears atraumatic Mouth: no lip lesion, mucus membranes moist Cardiovascular: S1S2 reg, no murmur, positive dorsalis pedis pulse bilateral, no edema Lungs: CTA bilateral, no rhonchi, no rales, no accessory muscle use Abdominal: soft, nontender to palpation, no guarding Ext: muscle strength 2/5 weakness on right hip flexion/extension and ankle plantar flexion, 5/5 muscle strength in rest of extremities Neuro: CN II-XI grossly intact, no gross focal neuro deficits Psych: Alert, oriented to person, place, and time Assessment/Plan: Patient is a 83-year-old male with a atrial fibrillation on warfarin, with permanent pacemaker, history of CVA/TIA, hyperlipidemia, hypertension, prostate cancer with radiation in 2014 currently in remission, thyroid disorder, osteoarthritis presenting with generalized weakness. Active: #. Generalized weakness PT/OT consulted #. Complicated urinary tract infection #. Leukocytosis likely 2 in the setting of above WBC downtrending from 13.8 => 11.0 Neck denies any super pubic tenderness or abdominal flank pain Patient self catheterizes at home Rocephin 2 g IVPB daily Urine culture sent Intake output, bladder scan as needed On normal saline at 130 cc/hr Urinary catheter in place Urology consulted. Infectious disease consulted. #. TEO Admission creatinine 1.87 and downtrending => 1.70 Close to baseline Renal ultrasound ordered History of recurrent UTI and urinary retention Urology consulted Chronic: #. Atrial fibrillation, on warfarin with permanent pacemaker INR 3.0, maintain between Continue with metoprolol 75 mg p.o. twice daily Keep potassium > 4.0 and magnesium > 2.05 continue with digoxin 125 mcg p.o. at bedtime #. Hypertension #. History of CVA/TIA #. Hyperlipidemia Continue atorvastatin 20 mg p.o. at bedtime Aspirin 81 mg p.o. daily Continue with lisinopril 20 mg p.o. daily Continue with metoprolol 75 mg p.o. twice daily #. BPH Continue with Flomax 0.4 mg p.o. twice daily F: NS at 130 cc/hr E: Replete as needed N: Heart healthy diet A: PT/OT consulted DVT prophylaxis: Warfarin GI prophylaxis Pepcid 20 mg p.o. daily The patient is admitted with an anticipated greater than than 2 midnight stay for evaluation of generalized weakness and UTI. CODE STATUS: Full code Discussed with: Patient Anticipated discharge place: Subacute rehab Attestation I have seen and examined this patient with my resident , discussed the same with the resident/NANCY, and agree with the dictator's assessment and plan as written Dr. Oswald santos Past Medical History Past Medical History: Atrial Fibrillation, Cancer, CVA/TIA, Hyperlipidemia, Hypertension, Osteoarthritis (OA), Prostate Disorder, Thyroid Disorder Additional Past Medical History / Comment(s): MS, hx. prostate cancer 2015-had radiation. Generator change-01/14/2019 PACEMAKER ONLY, NO DEFIBRILLATOR Last Myocardial Infarction Date:: unk DATE History of Any Multi-Drug Resistant Organisms: None Reported Past Surgical History: Back Surgery, Heart Catheterization, Hernia Repair, Pac emaker Additional Past Surgical History / Comment(s): PACEMAKER, Generator change- 01/14/2019 Past Anesthesia/Blood Transfusion Reactions: No Reported Reaction Additional Past Anesthesia/Blood Transfusion Reaction / Comment(s): NA Type of Cardiac Device: Permanent Pacemaker Device Placement Date:: 05/02/11 Past Psychological History: No Psychological Hx Reported Smoking Status: Former smoker Past Alcohol Use History: Occasional Additional Past Alcohol Use History / Comment(s): STARTED SMOKING 1960 quit smoking 1992, smoked 1ppd Past Drug Use History: None Reported - Past Family History Mother Family Medical History: Dementia Sister(s) Family Medical History: Cancer Additional Family Medical History / Comment(s): melanoma Father Family Medical History: Myocardial Infarction ([place]) Medications and Allergies Home Medications Medication Instructions Recorded Confirmed Type Aspirin 81 mg PO DAILY@0730 09/02/13 02/22/24 History Digoxin [Lanoxin] 125 mcg PO HS 09/02/13 02/22/24 History Isosorbide Mononitrate [Imdur] 60 mg PO HS 09/02/13 02/22/24 History Simvastatin [Zocor] 40 mg PO HS 09/02/13 02/22/24 History Warfarin [Coumadin] 2.5 mg PO MO@1830 09/02/13 02/22/24 History Warfarin [Coumadin] 1.25 mg PO SUTUWETHFRSA@1830 03/06/18 02/22/24 History Metoprolol Tartrate [Lopressor] 75 mg PO BID@0730,1800 04/20/20 02/22/24 History Cholecalciferol (Vitamin D3) 50 mcg PO DAILY 08/25/23 02/22/24 History [Vitamin D3 (50 Mcg = 2000 Iu)] Cyanocobalamin (Vitamin B-12) 1,000 mcg PO DAILY 08/25/23 02/22/24 History [Vitamin B-12] Gabapentin 600 mg PO HS 08/25/23 02/22/24 History Vitamin B Complex 1 cap PO MOTH 08/25/23 02/22/24 History Baclofen 10 mg PO HS 02/22/24 02/22/24 History Trimethoprim [Trimpex] 100 mg PO DAILY 02/22/24 02/22/24 History ramipriL [Altace] 5 mg PO HS 02/22/24 02/22/24 History Allergies Allergy/AdvReac Type Severity Reaction Status Date / Time No Known Allergies Allergy Verified 02/22/24 07:37 Physical Exam Vitals: Vital Signs Temp Pulse Pulse Resp BP BP Pulse Ox 02/22/24 07:51 97.7 F 81 16 122/72 97 02/22/24 07:18 97.1 F L 70 16 137/68 97 02/22/24 05:02 82 19 119/59 95 02/22/24 02:31 79 15 146/91 95 02/22/24 01:00 61 13 120/58 96 02/22/24 00:30 63 16 100/43 95 02/21/24 21:30 98.6 F 77 18 129/67 97 02/21/24 20:00 100.3 F H 69 18 137/60 95 02/21/24 18:50 100.4 F H 68 18 135/73 94 L Intake and Output 02/21/24 02/22/24 02/22/24 22:59 06:59 14:59 Other: Weight 77.111 kg 77.111 kg Results CBC & Chem 7: 02/23/24 03:35 02/23/24 03:35 Labs: Abnormal Lab Results - Last 24 Hours (Table) 02/21/24 02/21/24 02/21/24 Range/Units 19:42 19:42 19:42 WBC 13.8 H (3.8-10.6) k/uL Plt Count 132 L (150-450) k/uL Neutrophils # 11.9 H (1.3-7.7) k/uL Lymphocytes # 0.6 L (1.0-4.8) k/uL PT 29.6 H (10.0-12.5) sec INR 3.0 H (<1.2) APTT 35.2 H (22.0-30.0) sec BUN 29 H (9-20) mg/dL Creatinine 1.87 H (0.66-1.25) mg/dL Glucose 119 H (74-99) mg/dL Urine Blood (Negative) Ur Leukocyte Esterase (Negative) Urine RBC (0-5) /hpf Urine WBC (0-5) /hpf Urine Bacteria (None) /hpf Urine Mucus (None) /hpf Urine Yeast (Budding) (None) /hpf 02/21/24 Range/Units 20:37 WBC (3.8-10.6) k/uL Plt Count (150-450) k/uL Neutrophils # (1.3-7.7) k/uL Lymphocytes # (1.0-4.8) k/uL PT (10.0-12.5) sec INR (<1.2) APTT (22.0-30.0) sec BUN (9-20) mg/dL Creatinine (0.66-1.25) mg/dL Glucose (74-99) mg/dL Urine Blood Large H (Negative) Ur Leukocyte Esterase Moderate H (Negative) Urine RBC 36 H (0-5) /hpf Urine WBC 33 H (0-5) /hpf Urine Bacteria Rare H (None) /hpf Urine Mucus Rare H (None) /hpf Urine Yeast (Budding) Occasional H (None) /hpf Thrombosis Risk Factor Assmnt - Choose All That Apply Each Risk Factor Represents 3 Points: Age 75 years or older Thrombosis Risk Factor Assessment Total Risk Factor Score: 3 Thrombosis Risk Factor Assessment Level: Moderate Risk
--- NOTE | 2024-02-22 17:07 | US ---
EXAMINATION TYPE: US kidneys/renal and bladder DATE OF EXAM: 02/22/2024 COMPARISON: 08/09/22 CLINICAL INDICATION: Male, 83 years old with history of Avelino; AVELINO TECHNIQUE: Grayscale and color Doppler imaging of the bilateral kidneys and urinary bladder: FINDINGS: EXAM MEASUREMENTS: Right Kidney: 13.4 x 5.6 x 5.6 cm Left Kidney: 9.3 x 3.1 x 4.3 cm Left kidney slightly limited due to bowel gas Right Kidney: cystic area seen inferior pole measuring 2.1 x 2.2 x 2.9cm Left Kidney: cystic area seen measuring 3.4 x 3.0 x 2.9cm Bladder: contracted due to easton Bilateral Jets seen: Not assessed There is no evidence for hydronephrosis at this point in time. No nephrolithiasis is seen. No corrie s are identified. IMPRESSION: 1. No evidence for obstructive uropathy. 2. East[place] catheter in place. 3. Bilateral renal cysts. [facility], , 02/22/2024 5:04 PM
--- NOTE | 2024-02-22 17:30 | P.GSCN ---
History of Present Illness Consult date: 02/22/24 Reason for Consult: Urinary retention History of present illness: This is an 83-year-old male with history of prostate cancer treated with radi ation therapy back in 2014. His last PSA last year in July was 0.1. He is a known patient of Dr. Padilla with history of urinary retention his bladder is being managed with CIC. He indicated he does use a 14 Stateless catheter, but more recently he has been having some difficulty inserting the catheter as he is meeting resistance at the level of the prostate. Attempt to place a Mendenhall catheter by the nursing staff was unsuccessful, thus urology was consulted for urinary retention, and cath placement. He indicated he did undergo a cystoscopy in the past which showed evidence of a possible stricture, he is unsure at which level, he was advised by Dr. Padilla he may eventually require a urethral dilation for that. Past Medical History Past Medical History: Atrial Fibrillation, Cancer, CVA/TIA, Hyperlipidemia, Hypertension, Osteoarthritis (OA), Prostate Disorder, Thyroid Disorder Additional Past Medical History / Comment(s): MS, hx. prostate cancer 2014-had radiation. Generator change-01/14/2019 PACEMAKER ONLY, NO DEFIBRILLATOR Last Myocardial Infarction Date:: unk DATE History of Any Multi-Drug Resistant Organisms: None Reported Past Surgical History: Back Surgery, Heart Catheterization, Hernia Repair, Pacemaker Additional Past Surgical History / Comment(s): PACEMAKER, Generator change- 01/14/2019 Past Anesthesia/Blood Transfusion Reactions: No Reported Reaction Additional Past Anesthesia/Blood Transfusion Reaction / Comm: NA Type of Cardiac Device: Permanent Pacemaker Device Placement Date:: 05/02/11 Past Psychological History: No Psychological Hx Reported Smoking Status: Former smoker Past Alcohol Use History: Occasional Additional Past Alcohol Use History / Comment(s): STARTED SMOKING 1960 quit smoking 1992, smoked 1ppd Past Drug Use History: None Reported - Past Family History Mother Family Medical History: Dementia Sister(s) Family Medical History: Cancer Additional Family Medical History / Comment(s): melanoma Father Family Medical History: Myocardial Infarction ([place]) Medications and Allergies Home Medications Medication Instructions Recorded Confirmed Type Aspirin 81 mg PO DAILY@0730 09/02/13 02/22/24 History Digoxin [Lanoxin] 125 mcg PO HS 09/02/13 02/22/24 History Isosorbide Mononitrate [Imdur] 60 mg PO HS 09/02/13 02/22/24 History Simvastatin [Zocor] 40 mg PO HS 09/02/13 02/22/24 History Warfarin [Coumadin] 2.5 mg PO MO@1830 09/02/13 02/22/24 History Warfarin [Coumadin] 1.25 mg PO SUTUWETHFRSA@1830 03/06/18 02/22/24 History Metoprolol Tartrate [Lopressor] 75 mg PO BID@0730,1800 04/20/20 02/22/24 History Cholecalciferol (Vitamin D3) 50 mcg PO DAILY 08/25/23 02/22/24 History [Vitamin D3 (50 Mcg = 2000 Iu)] Cyanocobalamin (Vitamin B-12) 1,000 mcg PO DAILY 08/25/23 02/22/24 History [Vitamin B-12] Gabapentin 600 mg PO HS 08/25/23 02/22/24 History Vitamin B Complex 1 cap PO MOTH 08/25/23 02/22/24 History Baclofen 10 mg PO HS 02/22/24 02/22/24 History Trimethoprim [Trimpex] 100 mg PO DAILY 02/22/24 02/22/24 History ramipriL [Altace] 5 mg PO HS 02/22/24 02/22/24 History Allergies Allergy/AdvReac Type Severity Reaction Status Date / Time No Known Allergies Allergy Verified 02/22/24 07:37 Surgical - Exam Vital Signs Temp Pulse Resp BP Pulse Ox 100.4 F H 68 18 135/73 94 L 02/21/24 18:50 02/21/24 18:50 02/21/24 18:50 02/21/24 18:50 02/21/24 18:50 - General no distress, no pain - Eyes normal ocular movement, no pale - ENT normal nares, normal mucosa - Respiratory normal expansion, normal respiratory effort - Abdomen Abdomen: soft, non tender, no distended - Genitourinary normal penis with no external lesions, testicles present, testicles non-tender - Psychiatric oriented to time, oriented to person, oriented to place Results - Labs 02/22/24 08:24 02/22/24 08:24 Abnormal Lab Results - Last 24 Hours (Table) 02/21/24 02/21/24 02/21/24 Range/Units 19:42 19:42 19:42 WBC 13.8 H (3.8-10.6) k/uL Plt Count 132 L (150-450) k/uL Neutrophils # 11.9 H (1.3-7.7) k/uL Lymphocytes # 0.6 L (1.0-4.8) k/uL PT 29.6 H (10.0-12.5) sec INR 3.0 H (<1.2) APTT 35.2 H (22.0-30.0) sec BUN 29 H (9-20) mg/dL Creatinine 1.87 H (0.66-1.25) mg/dL Glucose 119 H (74-99) mg/dL Total Bilirubin (0.2-1.3) mg/dL Urine Blood (Negative) Ur Leukocyte Esterase (Negative) Urine RBC (0-5) /hpf Urine WBC (0-5) /hpf Urine Bacteria (None) /hpf Urine Mucus (None) /hpf Urine Yeast (Budding) (None) /hpf 02/21/24 02/22/24 02/22/24 Range/Units 20:37 08:24 08:24 WBC 11.0 H (3.8-10.6) k/uL Plt Count 143 L (150-450) k/uL Neutrophils # 8.8 H (1.3-7.7) k/uL Lymphocytes # 0.8 L (1.0-4.8) k/uL PT 29.6 H (10.0-12.5) sec INR 3.0 H (<1.2) APTT (22.0-30.0) sec BUN (9-20) mg/dL Creatinine (0.66-1.25) mg/dL Glucose (74-99) mg/dL Total Bilirubin (0.2-1.3) mg/dL Urine Blood Large H (Negative) Ur Leukocyte Esterase Moderate H (Negative) Urine RBC 36 H (0-5) /hpf Urine WBC 33 H (0-5) /hpf Urine Bacteria Rare H (None) /hpf Urine Mucus Rare H (None) /hpf Urine Yeast (Budding) Occasional H (None) /hpf 02/22/24 Range/Units 08:24 WBC (3.8-10.6) k/uL Plt Count (150-450) k/uL Neutrophils # (1.3-7.7) k/uL Lymphocytes # (1.0-4.8) k/uL PT (10.0-12.5) sec INR (<1.2) APTT (22.0-30.0) sec BUN 24 H (9-20) mg/dL Creatinine 1.70 H (0.66-1.25) mg/dL Glucose 118 H (74-99) mg/dL Total Bilirubin 1.5 H (0.2-1.3) mg/dL Urine Blood (Negative) Ur Leukocyte Esterase (Negative) Urine RBC (0-5) /hpf Urine WBC (0-5) /hpf Urine Bacteria (None) /hpf Urine Mucus (None) /hpf Urine Yeast (Budding) (None) /hpf Diabetes panel 02/21/24 02/22/24 Range/Units 19:42 08:24 Sodium 137 139 (137-145) mmol/L Potassium 4.6 4.3 (3.5-5.1) mmol/L Chloride 103 106 (98-107) mmol/L Carbon Dioxide 25 27 (22-30) mmol/L BUN 29 H 24 H (9-20) mg/dL Creatinine 1.87 H 1.70 H (0.66-1.25) mg/dL Glucose 119 H 118 H (74-99) mg/dL Calcium 9.1 9.1 (8.4-10.2) mg/dL AST 32 26 (17-59) U/L ALT 18 17 (4-49) U/L Alkaline Phosphatase 62 61 (38-126) U/L Total Protein 7.0 6.5 (6.3-8.2) g/dL Albumin 4.6 4.1 (3.5-5.0) g/dL Calcium panel 02/21/24 02/22/24 Range/Units 19:42 08:24 Calcium 9.1 9.1 (8.4-10.2) mg/dL Albumin 4.6 4.1 (3.5-5.0) g/dL Pituitary panel 02/21/24 02/22/24 Range/Units 19:42 08:24 Sodium 137 139 (137-145) mmol/L Potassium 4.6 4.3 (3.5-5.1) mmol/L Chloride 103 106 (98-107) mmol/L Carbon Dioxide 25 27 (22-30) mmol/L BUN 29 H 24 H (9-20) mg/dL Creatinine 1.87 H 1.70 H (0.66-1.25) mg/dL Glucose 119 H 118 H (74-99) mg/dL Calcium 9.1 9.1 (8.4-10.2) mg/dL Adrenal panel 02/21/24 02/22/24 Range/Units 19:42 08:24 Sodium 137 139 (137-145) mmol/L Potassium 4.6 4.3 (3.5-5.1) mmol/L Chloride 103 106 (98-107) mmol/L Carbon Dioxide 25 27 (22-30) mmol/L BUN 29 H 24 H (9-20) mg/dL Creatinine 1.87 H 1.70 H (0.66-1.25) mg/dL Glucose 119 H 118 H (74-99) mg/dL Calcium 9.1 9.1 (8.4-10.2) mg/dL Total Bilirubin 1.1 1.5 H (0.2-1.3) mg/dL AST 32 26 (17-59) U/L ALT 18 17 (4-49) U/L Alkaline Phosphatase 62 61 (38-126) U/L Total Protein 7.0 6.5 (6.3-8.2) g/dL Albumin 4.6 4.1 (3.5-5.0) g/dL Assessment and Plan Assessment: 83-year-old male history of urinary retention being managed with a CIC, also history of prostate cancer in remission. He has been having more difficulty with catheterizing, and nursing staff was unsuccessful in placing a Mendenhall catheter. -I was able to place a 14 Stateless coud catheter, with return of clear urine. At this time recommend keeping the catheter for 1 week to allow for urethral healing given multiple attempts. At that point cath can be removed and he can reattempt CIC. I did advise him to follow back up with Dr. Eller he indicated he does have a follow-up this month to consider a repeat cystoscopy with possible dilation given the finding
--- NOTE | 2024-02-22 17:33 | P.PCN ---
Date of Procedure: 02/22/24 Preoperative Diagnosis: Urinary retention, urethral stricture Postoperative Diagnosis: Same Procedure(s) Performed: Difficult Mendenhall catheter placement Description of Procedure: Initially attempted to place a 16 Turkmen latex catheter, but resistance was met at the level of the prostate, at this point I switched to a 14 Turkmen coud catheter, I was able to advance the catheter with some difficulty across to the prostate and into the bladder with a return of clear urine. . Patient tolerated procedure well
[2024-02-22] MEDS ORDERED: WARFARIN 2.5 MG TAB PO SCH (18:00)
[2024-02-22] MEDS: WARFARIN 1.25 MG TAB PO SCH (18:19)
[2024-02-22] MEDS: DIGOXIN 125 MCG TAB PO SCH (20:19)
[2024-02-22] MEDS: GABAPENTIN 300 MG CAP PO SCH (20:19)
[2024-02-22] MEDS: ISOSORBIDE MONONITRATE ER 60 MG TAB.ER.24H PO SCH (20:20)
[2024-02-22] MEDS: ATORVASTATIN 20 MG TAB PO SCH (20:20)
[2024-02-23 04:28] LABS: INR 2.7 (<1.2); Prothrombin Time 26.6 sec (10.0-12.5)
[2024-02-23 09:10] LABS: Basophils # (A) 0.02 X 10*3/uL (0.00-0.10); Basophils % (A) 0.3 %; Eosinophils # (A) 0.27 X 10*3/uL (0.04-0.35); Eosinophils % (A) 3.5 %; HCT 37.5 % (39.6-50.0); HGB 12.3 g/dL (13.0-17.0); Lymphocytes # (A) 0.98 X 10*3/uL (0.90-5.00); Lymphocytes % (A) 12.6 %; MCH 30.5 pg (27.0-32.0); MCHC 32.8 g/dL (32.0-37.0); MCV 93.1 FL (80.0-97.0); Mean Platelet Volume 10.8 FL (9.5-12.2); Monocytes # (A) 1.15 X 10*3/uL (0.20-1.00); Monocytes % (A) 14.8 %; NRBC Per 100 WBC 0 X 10*3/uL (0.00-0.01); Neutrophils # (A) 5.32 X 10*3/uL (1.80-7.70); Neutrophils % (A) 68.3 %; Platelet Count 149 X 10*3/uL (140-440); RBC 4.03 X 10*6/uL (4.40-5.60); RDW 13.5 % (11.5-14.5); WBC 7.78 X 10*3/uL (4.50-10.00)
[2024-02-23 09:18] LABS: BUN/Creat Ratio 14.56 Ratio (12.00-20.00); Blood Urea Nitrogen 23.3 mg/dL (9.0-27.0); Calcium 8.6 mg/dL (8.7-10.3); Carbon Dioxide 23.8 mmol/L (21.6-31.8); Chloride 108 mmol/L (96-109); Glucose 103 mg/dL (70-110); Magnesium 1.9 mg/dL (1.5-2.4); Potassium 4.3 mmol/L (3.5-5.5); Sodium 141 mmol/L (135-145)
--- NOTE | 2024-02-23 09:55 | P.CONS ---
History of Present Illness - Reason for Consult Consult date: 02/22/24 Recurrent UTI Requesting physician: Jamie Rouse - Chief Complaint Weakness x 2 days - History of Present Illness Patient is a 83-year-old male with a past medical history significant for atrial fibrillation hypertension hyperlipidemia osteoarthritis CVA TIA history of prostate disorder with the urinary outflow obstruction requiring self-catheterization 4 times a day patient presenting to the hospital concerning for feeling weak and this patient symptom has been getting worse for a day or 2 before presentation to the hospital patient mention he was on the commode and was unable to stand up so he laid himself to the ground no history of any fall or trauma has been having some discomfort to the lower abdominal area did not mention urine becoming more cloudy or any burning patient on presentation to the hospital did have a low-grade fever 100.4 F patient was not tachycardic hypotensive or hypoxic and no need for supplemental oxygen he did have a white count of 13.8 with a left shift BUN/creatinine has been mildly elevated liver enzymes are normal urine has been positive patient was started on ceftriaxone infectious disease was consulted regarding her currently UTI Review of Systems Positive point and negatives has been mentioned in the HPI, complete review of systems was performed and all other systems are negative Past Medical History Past Medical History: Atrial Fibrillation, Cancer, CVA/TIA, Hyperlipidemia, Hypertension, Osteoarthritis (OA), Prostate Disorder, Thyroid Disorder Additional Past Medical History / Comment(s): MS, hx. prostate cancer 2014-had radiation. Generator change-01/14/2019 PACEMAKER ONLY, NO DEFIBRILLATOR Last Myocardial Infarction Date:: unk DATE History of Any Multi-Drug Resistant Organisms: None Reported Past Surgical History: Back Surgery, Heart Catheterization, Hernia Repair, Pacemaker Additional Past Surgical History / Comment(s): PACEMAKER, Generator change- 01/14/2019 Past Anesthesia/Blood Transfusion Reactions: No Reported Reaction Additional Past Anesthesia/Blood Transfusion Reaction / Comm: NA Type of Cardiac Device: Permanent Pacemaker Device Placement Date:: 05/02/11 Past Psychological History: No Psychological Hx Reported Smoking Status: Former smoker Past Alcohol Use History: Occasional Additional Past Alcohol Use History / Comment(s): STARTED SMOKING 1960 quit smoking 1992, smoked 1ppd Past Drug Use History: None Reported - Past Family History Mother Family Medical History: Dementia Sister(s) Family Medical History: Cancer Additional Family Medical History / Comment(s): melanoma Father Family Medical History: Myocardial Infarction ([place]) Medications and Allergies Home Medications Medication Instructions Recorded Confirmed Type Aspirin 81 mg PO DAILY@0730 09/02/13 02/22/24 History Digoxin [Lanoxin] 125 mcg PO HS 09/02/13 02/22/24 History Isosorbide Mononitrate [Imdur] 60 mg PO HS 09/02/13 02/22/24 History Simvastatin [Zocor] 40 mg PO HS 09/02/13 02/22/24 History Warfarin [Coumadin] 2.5 mg PO MO@1830 09/02/13 02/22/24 History Warfarin [Coumadin] 1.25 mg PO SUTUWETHFRSA@1830 03/06/18 02/22/24 History Metoprolol Tartrate [Lopressor] 75 mg PO BID@0730,1800 04/20/20 02/22/24 History Cholecalciferol (Vitamin D3) 50 mcg PO DAILY 08/25/23 02/22/24 History [Vitamin D3 (50 Mcg = 2000 Iu)] Cyanocobalamin (Vitamin B-12) 1,000 mcg PO DAILY 08/25/23 02/22/24 History [Vitamin B-12] Gabapentin 600 mg PO HS 08/25/23 02/22/24 History Vitamin B Complex 1 cap PO MOTH 08/25/23 02/22/24 History Baclofen 10 mg PO HS 02/22/24 02/22/24 History Trimethoprim [Trimpex] 100 mg PO DAILY 02/22/24 02/22/24 History ramipriL [Altace] 5 mg PO HS 02/22/24 02/22/24 History Allergies Allergy/AdvReac Type Severity Reaction Status Date / Time No Known Allergies Allergy Verified 02/22/24 07:37 Physical Exam Vitals: Vital Signs Temp Pulse Pulse Resp BP BP Pulse Ox 02/22/24 13:38 97.7 F 83 17 159/83 94 L 02/22/24 07:51 97.7 F 81 16 122/72 97 02/22/24 07:18 97.1 F L 70 16 137/68 97 02/22/24 05:02 82 19 119/59 95 02/22/24 02:31 79 15 146/91 95 02/22/24 01:00 61 13 120/58 96 02/22/24 00:30 63 16 100/43 95 02/21/24 21:30 98.6 F 77 18 129/67 97 02/21/24 20:00 100.3 F H 69 18 137/60 95 02/21/24 18:50 100.4 F H 68 18 135/73 94 L Intake and Output 02/22/24 02/22/24 02/22/24 06:59 14:59 22:59 Output Total 400 Balance -400 Output: Urine 400 Straight 400 Other: Weight 77.111 kg GENERAL DESCRIPTION: Elderly male lying in bed, no distress. No tachypnea or accessory muscle of respiration use. HEENT: Shows Pallor , no scleral icterus. Oral mucous membrane is dry. No pharyngeal erythema or thrush NECK: Trachea central, no thyromegaly. LUNGS: Unlabored breathing. Clear to auscultation anteriorly. No wheeze or crackle. HEART: S1, S2, regular rate and rhythm. No loud murmur ABDOMEN: Soft, no tenderness , guarding or rigidity, no organomegaly EXTREMITIES: No edema of feet. SKIN: No rash, no masses palpable. NEUROLOGICAL: The patient is awake, alert, oriented x3, mood and affect normal. Results CBC & Chem 7: 02/23/24 03:35 02/23/24 03:35 Labs: Abnormal Lab Results - Last 24 Hours (Table) 02/21/24 02/21/24 02/21/24 Range/Units 19:42 19:42 19:42 WBC 13.8 H (3.8-10.6) k/uL Plt Count 132 L (150-450) k/uL Neutrophils # 11.9 H (1.3-7.7) k/uL Lymphocytes # 0.6 L (1.0-4.8) k/uL PT 29.6 H (10.0-12.5) sec INR 3.0 H (<1.2) APTT 35.2 H (22.0-30.0) sec BUN 29 H (9-20) mg/dL Creatinine 1.87 H (0.66-1.25) mg/dL Glucose 119 H (74-99) mg/dL Total Bilirubin (0.2-1.3) mg/dL Urine Blood (Negative) Ur Leukocyte Esterase (Negative) Urine RBC (0-5) /hpf Urine WBC (0-5) /hpf Urine Bacteria (None) /hpf Urine Mucus (None) /hpf Urine Yeast (Budding) (None) /hpf 02/21/24 02/22/24 02/22/24 Range/Units 20:37 08:24 08:24 WBC 11.0 H (3.8-10.6) k/uL Plt Count 143 L (150-450) k/uL Neutrophils # 8.8 H (1.3-7.7) k/uL Lymphocytes # 0.8 L (1.0-4.8) k/uL PT 29.6 H (10.0-12.5) sec INR 3.0 H (<1.2) APTT (22.0-30.0) sec BUN (9-20) mg/dL Creatinine (0.66-1.25) mg/dL Glucose (74-99) mg/dL Total Bilirubin (0.2-1.3) mg/dL Urine Blood Large H (Negative) Ur Leukocyte Esterase Moderate H (Negative) Urine RBC 36 H (0-5) /hpf Urine WBC 33 H (0-5) /hpf Urine Bacteria Rare H (None) /hpf Urine Mucus Rare H (None) /hpf Urine Yeast (Budding) Occasional H (None) /hpf 02/22/24 Range/Units 08:24 WBC (3.8-10.6) k/uL Plt Count (150-450) k/uL Neutrophils # (1.3-7.7) k/uL Lymphocytes # (1.0-4.8) k/uL PT (10.0-12.5) sec INR (<1.2) APTT (22.0-30.0) sec BUN 24 H (9-20) mg/dL Creatinine 1.70 H (0.66-1.25) mg/dL Glucose 118 H (74-99) mg/dL Total Bilirubin 1.5 H (0.2-1.3) mg/dL Urine Blood (Negative) Ur Leukocyte Esterase (Negative) Urine RBC (0-5) /hpf Urine WBC (0-5) /hpf Urine Bacteria (None) /hpf Urine Mucus (None) /hpf Urine Yeast (Budding) (None) /hpf Assessment and Plan (1) Sepsis Current Visit: Yes Status: Acute Code(s): A41.9 - SEPSIS, UNSPECIFIED ORGANISM SNOMED Code(s): 35958966 (2) UTI (urinary tract infection) Current Visit: Yes Status: Acute Code(s): N39.0 - URINARY TRACT INFECTION, SITE NOT SPECIFIED SNOMED Code(s): 23368780 Plan: 1patient presented to hospital with sepsis in this patient who did have a fever 100.4 F, did have elevated white count source is likely UTI in this patient who did have a history of prostate disorder urinary retention requiring self- catheterization likely the risk factor and likely from enteric gram-negative pathogen 2-Rocephin 2 g daily should provide adequate empiric coverage while waiting for the culture to finalize We will follow on clinical condition and cultures to further adjust medication if needed Thank you for this consultation we will follow the patient along with you Dictation was produced using [employer] dictation software. please excuse any grammatical, word or spelling errors. Time with Patient: Greater than 30
--- NOTE | 2024-02-23 13:47 | P.PN ---
Subjective Progress Note Date: 02/23/24 Hospital course: Patient is a 83-year-old male with a atrial fibrillation on warfarin, with permanent pacemaker, history of CVA/TIA, hyperlipidemia, hypertension, prostate cancer with radiation in 2014 currently in remission, thyroid disorder, osteoarthritis presenting with generalized weakness. Typically ambulates with walker. He states his weakness started yesterday in the afternoon, while walking to his comode to urinate. Shortly after, he was not able to stand up. He slid down to the ground easily, and called EMS. Denies shortness of breath, chest pain, chills aches, nausea, vomiting, diarrhea, back, neck pain, cough, sore throat. Admits to fever. Admits to history of multiple UTI due self- catheterization. States he feels weaker every time he has a UTI. Patient denies dysuria, hematuria. EKG independently interpreted displays Tronic ventricular pacemaker, vent rate 66 bpm, QTc 442 MS CXR independently interpreted displays no acute pulmonary process Knee x-ray shows small joint effusion, no acute osseous abnormality WBC 11.0, Hgb 6.5, platelet 143, INR 3.0, BUN 24, creatinine 1.70 T97.9 F, [place] 81, RR 16, BP 122/72, O2 sat 97% on room air 02/23/2024: Patient seen and examined at bedside. No acute events overnight. No acute complaints. Seen by urologist to place in catheter due to history of urethral stricture. Pertinent positives and negatives as discussed above, a complete review of systems was performed and all other systems are negative. Vitals: Signs Reviewed Physical examination: Vital signs reviewed General: non toxic, no distress, appears at stated age, normal weight Derm: no unusual rashes/lesions, warm Head: atraumatic, normocephalic, symmetric Eyes: EOMI, anicteric sclera, pupils equal round reactive to light ENT: Nose and ears atraumatic Mouth: no lip lesion, mucus membranes moist Cardiovascular: S1S2 reg, no murmur, positive dorsalis pedis pulse bilateral, no edema Lungs: CTA bilateral, no rhonchi, no rales, no accessory muscle use Abdominal: soft, nontender to palpation, no guarding Ext: muscle strength 2/5 weakness on right hip flexion/extension and ankle p lantar flexion, 5/5 muscle strength in rest of extremities Neuro: CN II-XI grossly intact, no gross focal neuro deficits Psych: Alert, oriented to person, place, and time Data Received Today: Pertinent Labs: WBC 7.78, Hgb 12.3, INR 2.7, creatinine 1.6 Imaging: No recent imaging Assessment/Plan: Patient is a 83-year-old male with a atrial fibrillation on warfarin, with permanent pacemaker, history of CVA/TIA, hyperlipidemia, hypertension, prostate cancer with radiation in 2015 currently in remission, thyroid disorder, osteoarthritis presenting with generalized weakness. Active: #. Generalized weakness PT/OT consultedrecommend subacute rehab #. Complicated urinary tract infection #. Leukocytosis likely 2 in the setting of above WBC downtrending from 13.8 => 11.0 Neck denies any super pubic tenderness or abdominal flank pain Patient self catheterizes at home Rocephin 2 g IVPB daily Urine culture displayed >100,000 CFU/mL apparent skin and/or genital mulugeta Intake output, bladder scan as needed On normal saline at 130 cc/hr Urinary catheter in place Infectious disease consulted. #. TEO Admission creatinine 1.87 and downtrending => 1.70 => 1.6 Close to baseline Renal ultrasound ordered History of recurrent UTI and urinary retention #. History of urinary retention Patient self catheterizes at home Nursing staff unsuccessful in placing Mendenhall catheter, urology consulted. Uri nary catheter in place by urology Chronic: #. Atrial fibrillation, on warfarin with permanent pacemaker INR 3.0, maintain between Continue with metoprolol 75 mg p.o. twice daily Keep potassium > 4.0 and magnesium > 2.05 continue with digoxin 125 mcg p.o. at bedtime #. Hypertension #. History of CVA/TIA #. Hyperlipidemia Continue atorvastatin 20 mg p.o. at bedtime Aspirin 81 mg p.o. daily Continue with lisinopril 20 mg p.o. daily Continue with metoprolol 75 mg p.o. twice daily #. BPH Continue with Flomax 0.4 mg p.o. twice daily F: NS at 130 cc/hr E: Replete as needed N: Heart healthy diet A: PT/OT consulted DVT prophylaxis: Warfarin GI prophylaxis Pepcid 20 mg p.o. daily The patient is admitted with an anticipated greater than than 2 midnight stay for evaluation of generalized weakness and UTI. CODE STATUS: Full code Discussed with: Patient Anticipated discharge place: ECF Attestation I have seen and examined this patient with my resident , discussed the same with the resident/NANCY, and agree with the dictator's assessment and plan as written Dr. Oswald santos Objective - Vital Signs Vital signs: Vital Signs Temp 97.7 F 02/23/24 07:41 Pulse 81 02/23/24 08:00 Resp 16 02/23/24 08:00 BP 113/55 02/23/24 07:41 Pulse Ox 97 02/23/24 07:41 FiO2 Intake & Output 02/22/24 02/23/24 02/23/24 18:59 06:59 18:59 Intake Total 780 Output Total 1400 900 Balance -620 -900 Weight 77.111 kg Intake: Oral 780 Output: Urine 1400 900 Straight 1400 Other: Voiding Method Indwelling Catheter Indwelling Catheter - Labs CBC & Chem 7: 02/23/24 03:35 02/23/24 03:35 Labs: Abnormal Lab Results - Last 24 Hours (Table) 02/23/24 02/23/24 02/23/24 Range/Units 03:35 03:35 03:35 RBC 4.03 L (4.40-5.60) X 10*6/uL Hgb 12.3 L (13.0-17.0) g/dL Hct 37.5 L (39.6-50.0) % Monocytes # 1.15 H (0.20-1.00) X 10*3/uL PT 26.6 H (10.0-12.5) sec INR 2.7 H (<1.2) Creatinine 1.6 H (0.6-1.5) mg/dL Est GFR (CKD-EPI) 43 L (>=60) Calcium 8.6 L (8.7-10.3) mg/dL Microbiology - Last 24 Hours (Table) 02/21/24 20:37 Urine Culture - Final Urine,Catheterized
--- NOTE | 2024-02-23 15:00 | P.PN ---
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 On today's evaluation that is 02/23/2024, Patient did have resolution of his fever is afebrile this morning patient is currently on room air and denies having any shortness of breath, the patient denies any chest pain or cough, the patient denies any nausea vomiting did not have any abdominal pain and no diarrhea. Patient white count normalized to 7.78, creatinine is 1.6 cultures currently pending Objective - Vital Signs Vital signs: Vital Signs Temp 97.7 F 02/23/24 07:41 Pulse 81 02/23/24 08:00 Resp 16 02/23/24 08:00 BP 113/55 02/23/24 07:41 Pulse Ox 97 02/23/24 07:41 FiO2 Intake & Output 02/22/24 02/23/24 02/23/24 18:59 06:59 18:59 Intake Total 780 Output Total 1400 900 Balance -620 -900 Weight 77.111 kg Intake: Oral 780 Output: Urine 1400 900 Straight 1400 Other: Voiding Method Indwelling Catheter Indwelling Catheter - Exam GENERAL DESCRIPTION: An elderly male up in the chair in no distress RESPIRATORY SYSTEM: Unlabored breathing , decreased breath sounds at bases HEART: S1 S2 regular rate and rhythm , ABDOMEN: Soft , no tenderness EXTREMITIES: No edema feet - Labs CBC & Chem 7: 02/23/24 03:35 02/23/24 03:35 Labs: Abnormal Lab Results - Last 24 Hours (Table) 02/23/24 02/23/24 02/23/24 Range/Units 03:35 03:35 03:35 RBC 4.03 L (4.40-5.60) X 10*6/uL Hgb 12.3 L (13.0-17.0) g/dL Hct 37.5 L (39.6-50.0) % Monocytes # 1.15 H (0.20-1.00) X 10*3/uL PT 26.6 H (10.0-12.5) sec INR 2.7 H (<1.2) Creatinine 1.6 H (0.6-1.5) mg/dL Est GFR (CKD-EPI) 43 L (>=60) Calcium 8.6 L (8.7-10.3) mg/dL Microbiology - Last 24 Hours (Table) 02/21/24 20:37 Urine Culture - Final Urine,Catheterized Assessment and Plan (1) Sepsis Current Visit: Yes Status: Acute Code(s): A41.9 - SEPSIS, UNSPECIFIED ORGANISM SNOMED Code(s): 11394816 (2) UTI (urinary tract infection) Current Visit: Yes Status: Acute Code(s): N39.0 - URINARY TRACT INFECTION, SITE NOT SPECIFIED SNOMED Code(s): 75217542 Plan: 1patient presented to hospital with sepsis in this patient who did have a fever 100.4 F, did have elevated white count source is likely UTI in this patient who did have a history of prostate disorder urinary retention requiring self- catheterization likely the risk factor and likely from enteric gram-negative pathogen 2-patient did have resolution of his fever white normalized, continue with Rocephin 2 g daily and will transition to oral antibiotics on discharge Dictation was produced using [employer] dictation software. please excuse any grammatical, word or spelling errors. Time with Patient: Less than 30
[2024-02-24 06:12] LABS: INR 2.3 (<1.2); Prothrombin Time 22.8 sec (10.0-12.5)
[2024-02-24 08:57] LABS: Basophils # (A) 0.03 X 10*3/uL (0.00-0.10); Basophils % (A) 0.4 %; Eosinophils # (A) 0.29 X 10*3/uL (0.04-0.35); Eosinophils % (A) 4.3 %; HCT 35.3 % (39.6-50.0); HGB 11.4 g/dL (13.0-17.0); Lymphocytes # (A) 0.85 X 10*3/uL (0.90-5.00); Lymphocytes % (A) 12.7 %; MCH 29.5 pg (27.0-32.0); MCHC 32.3 g/dL (32.0-37.0); MCV 91.5 FL (80.0-97.0); Mean Platelet Volume 10.2 FL (9.5-12.2); Monocytes % (A) 14.9 %; NRBC Per 100 WBC 0 X 10*3/uL (0.00-0.01); Neutrophils # (A) 4.49 X 10*3/uL (1.80-7.70); Neutrophils % (A) 67.3 %; Platelet Count 127 X 10*3/uL (140-440); RBC 3.86 X 10*6/uL (4.40-5.60); RDW 13.5 % (11.5-14.5); WBC 6.69 X 10*3/uL (4.50-10.00)
[2024-02-24 09:06] LABS: Blood Urea Nitrogen 19.2 mg/dL (9.0-27.0); Calcium 8.4 mg/dL (8.7-10.3); Carbon Dioxide 20.9 mmol/L (21.6-31.8); Chloride 111 mmol/L (96-109); Glucose 104 mg/dL (70-110); Magnesium 1.7 mg/dL (1.5-2.4); Potassium 4.1 mmol/L (3.5-5.5); Sodium 142 mmol/L (135-145)
--- NOTE | 2024-02-24 13:37 | P.PN ---
Subjective Progress Note Date: 02/24/24 Hospital course: Patient is a 83-year-old male with a atrial fibrillation on warfarin, with permanent pacemaker, history of CVA/TIA, hyperlipidemia, hypertension, prostate cancer with radiation in 2014 currently in remission, thyroid disorder, osteoarthritis presenting with generalized weakness. Typically ambulates with walker. He states his weakness started yesterday in the afternoon, while walking to his comode to urinate. Shortly after, he was not able to stand up. He slid down to the ground easily, and called EMS. Denies shortness of breath, chest pain, chills aches, nausea, vomiting, diarrhea, back, neck pain, cough, sore throat. Admits to fever. Admits to history of multiple UTI due self- catheterization. States he feels weaker every time he has a UTI. Patient denies dysuria, hematuria. EKG independently interpreted displays Tronic ventricular pacemaker, vent rate 66 bpm, QTc 442 MS CXR independently interpreted displays no acute pulmonary process Knee x-ray shows small joint effusion, no acute osseous abnormality WBC 11.0, Hgb 6.5, platelet 143, INR 3.0, BUN 24, creatinine 1.70 T97.9 F, DC 81, RR 16, BP 122/72, O2 sat 97% on room air 02/23/2024: Patient seen and examined at bedside. No acute events overnight. No acute complaints. Seen by urologist to place in catheter due to history of urethral stricture. Pertinent positives and negatives as discussed above, a complete review of systems was performed and all other systems are negative. 02/23. Patient seen and examined. States he feels much better. Physical examination: GENERAL: The patient is alert and oriented x3, not in any acute distress. Well developed, well nourished. HEENT: Pupils are round and equally reacting to light. EOMI. No scleral icterus. No conjunctival pallor. Normocephalic, atraumatic. No pharyngeal erythema. No thyromegaly. CARDIOVASCULAR: S1 and S2 present. No murmurs, rubs, or gallops. PULMONARY: Chest is clear to auscultation, no wheezing or crackles. ABDOMEN: Soft, nontender, nondistended, normoactive bowel sounds. No palpable organomegaly. MUSCULOSKELETAL: No joint swelling or deformity. EXTREMITIES: No cyanosis, clubbing, or pedal edema. NEUROLOGICAL: Gross neurological examination did not reveal any focal deficits. SKIN: No rashes. no petechiae. Assessment/Plan: Patient is a 83-year-old male with a atrial fibrillation on warfarin, with permanent pacemaker, history of CVA/TIA, hyperlipidemia, hypertension, prostate cancer with radiation in 2015 currently in remission, thyroid disorder, osteoarthritis presenting with generalized weakness. Active: #. Generalized weakness PT/OT consultedrecommend subacute rehab #. Complicated urinary tract infection #. Leukocytosis likely 2 in the setting of above Monitor vital sign Monitor CBC Monitor CMP Continue IV Rocephin ID following #. TEO Resolved #. History of urinary retention Patient self catheterizes at home Nursing staff unsuccessful in placing Mendenhall catheter, urology consulted. Urinary catheter in place by urology Chronic: #. Atrial fibrillation, on warfarin with permanent pacemaker Continue with metoprolol 75 mg p.o. twice daily Continue with Coumadin pharmacy close #. Hypertension #. History of CVA/TIA #. Hyperlipidemia Continue atorvastatin 20 mg p.o. at bedtime Aspirin 81 mg p.o. daily Continue with lisinopril 20 mg p.o. daily Continue with metoprolol 75 mg p.o. twice daily #. BPH Continue with Flomax 0.4 mg p.o. twice daily Objective - Vital Signs Vital signs: Vital Signs Temp 97.9 F 02/24/24 13:00 Pulse 66 02/24/24 13:00 Resp 17 02/24/24 13:00 BP 152/77 02/24/24 13:00 Pulse Ox 99 02/24/24 13:00 FiO2 Intake & Output 02/23/24 02/24/24 02/24/24 19:59 06:59 18:59 Output Total Balance Output: Urine Other: Voiding Method Indwelling Catheter # Bowel Movements - Labs CBC & Chem 7: 02/24/24 05:12 02/24/24 05:12 Labs: Abnormal Lab Results - Last 24 Hours (Table) 02/24/24 02/24/24 02/24/24 Range/Units 05:12 05:12 05:12 RBC 3.86 L (4.40-5.60) X 10*6/uL Hgb 11.4 L (13.0-17.0) g/dL Hct 35.3 L (39.6-50.0) % Plt Count 127 L (140-440) X 10*3/uL Lymphocytes # 0.85 L (0.90-5.00) X 10*3/uL PT 22.8 H (10.0-12.5) sec INR 2.3 H (<1.2) Chloride 111 H (96-109) mmol/L Carbon Dioxide 20.9 L (21.6-31.8) mmol/L Est GFR (CKD-EPI) 46 L (>=60) Calcium 8.4 L (8.7-10.3) mg/dL
--- NOTE | 2024-02-24 15:04 | P.PN ---
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 On today's evaluation that is 02/24/2024, patient has been afebrile, patient is breathing comfortably and is currently on room air, patient denies having any significant cough no chest pain, patient denies nausea vomiting or diarrhea and no abdominal pain still complaining of weakness. Patient white count 6.69, creatinine is 1.5 culture has been negative so far Objective - Vital Signs Vital signs: Vital Signs Temp 97.9 F 02/24/24 13:00 Pulse 66 02/24/24 13:00 Resp 17 02/24/24 13:00 BP 152/77 02/24/24 13:00 Pulse Ox 99 02/24/24 13:00 FiO2 Intake & Output 02/23/24 02/24/24 02/24/24 19:59 06:59 18:59 Output Total Balance Output: Urine Other: Voiding Method Indwelling Catheter # Bowel Movements - Exam GENERAL DESCRIPTION: An elderly male up in the chair in no distress RESPIRATORY SYSTEM: Unlabored breathing , decreased breath sounds at bases HEART: S1 S2 regular rate and rhythm , ABDOMEN: Soft , no tenderness EXTREMITIES: No edema feet - Labs CBC & Chem 7: 02/24/24 05:12 02/24/24 05:12 Labs: Abnormal Lab Results - Last 24 Hours (Table) 02/24/24 02/24/24 02/24/24 Range/Units 05:12 05:12 05:12 RBC 3.86 L (4.40-5.60) X 10*6/uL Hgb 11.4 L (13.0-17.0) g/dL Hct 35.3 L (39.6-50.0) % Plt Count 127 L (140-440) X 10*3/uL Lymphocytes # 0.85 L (0.90-5.00) X 10*3/uL PT 22.8 H (10.0-12.5) sec INR 2.3 H (<1.2) Chloride 111 H (96-109) mmol/L Carbon Dioxide 20.9 L (21.6-31.8) mmol/L Est GFR (CKD-EPI) 46 L (>=60) Calcium 8.4 L (8.7-10.3) mg/dL Assessment and Plan (1) Sepsis Current Visit: Yes Status: Acute Code(s): A41.9 - SEPSIS, UNSPECIFIED ORGANISM SNOMED Code(s): 81541713 (2) UTI (urinary tract infection) Current Visit: Yes Status: Acute Code(s): N39.0 - URINARY TRACT INFECTION, SITE NOT SPECIFIED SNOMED Code(s): 73227849 Plan: 1patient presented to hospital with sepsis in this patient who did have a fever 100.4 F, did have elevated white count source is likely UTI in this patient who did have a history of prostate disorder urinary retention requiring self-ca theterization likely the risk factor and likely from enteric gram-negative pathogen 2-patient did have resolution of his fever and the white count has normalized while on Rocephin we will consider a 7-day course of Ceftin on discharge Dictation was produced using [employer] dictation software. please excuse any grammatical, word or spelling errors. Time with Patient: Less than 30
[2024-02-24] MEDS: BACLOFEN 10 MG TAB PO SCH (20:07)
[2024-02-25 05:23] LABS: Prothrombin Time 20.2 sec (10.0-12.5)
[2024-02-25 07:32] VITALS: RESP 17
--- NOTE | 2024-02-25 12:14 | P.PN ---
Subjective Progress Note Date: 02/25/24 Principal diagnosis: Reason for follow-up is a urinary tract infection Patient is a 83-year-old male with a past medical history significant for atrial fibrillation hypertension hyperlipidemia osteoarthritis CVA TIA history of prostate disorder with the urinary outflow obstruction requiring self-catheterization presented to hospital with weakness did have a positive UA elevated white count concerning for UTI Mendenhall catheter has been placed by urology. On today's evaluation that is 02/25/2024, Patient is afebrile this morning patient denies having any chest pain shortness of breath or cough, the patient is currently on room air, patient denies any abdominal pain no diarrhea no nausea no vomiting still complaining of feeling weak and wants to go to rehab then home. Patient did have INR of 2.0 culture has been negative so far Objective - Vital Signs Vital signs: Vital Signs Temp 97.7 F 02/25/24 07:30 Pulse 59 L 02/25/24 07:30 Resp 17 02/25/24 07:30 BP 128/74 02/25/24 07:30 Pulse Ox 98 02/25/24 07:30 FiO2 Intake & Output 02/24/24 02/25/24 02/25/24 18:59 06:59 18:59 Intake Total 780 Output Total 1600 1600 Balance -820 -1600 Intake: Oral 780 Output: Urine 1600 1600 Other: Voiding Method Indwelling Catheter Indwelling Catheter - Exam GENERAL DESCRIPTION: An elderly male up in the chair in no distress RESPIRATORY SYSTEM: Unlabored breathing , decreased breath sounds at bases HEART: S1 S2 regular rate and rhythm , ABDOMEN: Soft , no tenderness EXTREMITIES: No edema feet - Labs CBC & Chem 7: 02/24/24 05:12 02/24/24 05:12 Labs: Abnormal Lab Results - Last 24 Hours (Table) 02/25/24 Range/Units 04:34 PT 20.2 H (10.0-12.5) sec INR 2.0 H (<1.2) Assessment and Plan (1) Sepsis Current Visit: Yes Status: Acute Code(s): A41.9 - SEPSIS, UNSPECIFIED ORGANISM SNOMED Code(s): 14739885 (2) UTI (urinary tract infection) Current Visit: Yes Status: Acute Code(s): N39.0 - URINARY TRACT INFECTION, SITE NOT SPECIFIED SNOMED Code(s): 06394359 Plan: 1patient presented to hospital with sepsis in this patient who did have a fever 100.4 F, did have elevated white count source is likely UTI in this patient who did have a history of prostate disorder urinary retention requiring self-catheterization likely the risk factor and likely from enteric gram- negative pathogen 2-patient did have resolution of his fever and the white count has normalized, culture have been negative so far in view of improvement on Rocephin will consider short course of oral Ceftin on discharge Dictation was produced using [employer] dictation software. please excuse any grammatical, word or spelling errors. Time with Patient: Less than 30
[2024-02-25 13:37] VITALS: BP 134/69; PULSE 60; TEMP 97.5
--- NOTE | 2024-02-25 14:32 | P.DS ---
Providers Date of admission: 02/21/24 23:06 Attending physician: Rip Martinez Consults: 02/22/24 12:34 Consult Physician Urgent Consulting Provider: Jonas Padilla Consult Reason/Comments: urinary retention Do you want consulting provider notified?: Yes 02/22/24 12:45 Consult Physician Routine Consulting Provider: Kacie Whitmore Consult Reason/Comments: reccurent UTI Do you want consulting provider notified?: Yes Primary care physician: Jeison Reyes Hospital Course: Discharge diagnosis: Generalized weakness Complicated urinary tract infection Leukocytosis likely secondary the setting of above TEO History of urinary retention Atrial fibrillation on warfarin with permanent pacemaker Hypertension History of CVA/TIA Hyperlipidemia BPH Hospital Course: Patient is a 83-year-old male with a atrial fibrillation on warfarin, with permanent pacemaker, history of CVA/TIA, hyperlipidemia, hypertension, prostate cancer with radiation in 2014 currently in remission, thyroid disorder, osteoarthritis presenting with generalized weakness. He states his weakness started yesterday in the afternoon, while walking to his comode to urinate. Shortly after, he was not able to stand up. He slid down to the ground easily, and called EMS. Denies shortness of breath, chest pain, chills aches, nausea, vomiting, diarrhea, back, neck pain, cough, sore throat. Admits to fever. Admits to history of multiple UTI due self-catheterization. States he feels weaker every time he has a UTI. Patient denies dysuria, hematuria. Vitals on admission T97.9 F, [place] 81, RR 16, BP 122/72, O2 sat 97% on room air. EKG independently interpreted displays Tronic ventricular pacemaker, vent rate 66 bpm, QTc 442 MS. CXR independently interpreted displays no acute pulmonary process. Knee x-ray shows small joint effusion, no acute osseous abnormality. Labs on admission WBC 11.0, Hgb 6.5, platelet 143, INR 3.0, BUN 24, creatinine 1.70. UA showed large blood, moderate leukocyte esterase, 36 RBC, 33 WBC, rare bacteria and mucus and occasional budding yeast. The patient was started on IV fluids and Rocephin. Abdomen bladder ultrasound was obtained that showed no evidence for obstructive uropathy, but showed bilateral renal cyst. A bladder scan was done that showed postvoid residual to be 559 and a Mendenhall catheter was placed in by urology which they recommended to keep for 1 week. Urine culture was obtained that showed more than 100,000 CFU per mL apparent skin or genitalia mulugeta. Over the next 3 days his WBC count normalized and his fever subsided. PT and OT were consulted due to weakness who recommended subacute rehab on discharge. He has been accepted into [facility], where he will go upon discharge. Patient will be discharged to [facility] today and is advised to be compliant with medications. Patient is advised to follow-up with PCP in 1 to 2 days and urologist in 1 week. Patient seen at bedside today and is feeling good and excited about discharge. Vital signs are reviewed and stable GENERAL: The patient is alert and oriented x3, not in any acute distress. Well developed, well nourished. HEENT: Pupils are round and equally reacting to light. EOMI. No scleral icterus. No conjunctival pallor. Normocephalic, atraumatic. No pharyngeal erythema. No thyromegaly. CARDIOVASCULAR: S1 and S2 present. No murmurs, rubs, or gallops. PULMONARY: Chest is clear to auscultation, no wheezing or crackles. ABDOMEN: Soft, nontender, nondistended, normoactive bowel sounds. No palpable organomegaly. MUSCULOSKELETAL: No joint swelling or deformity. EXTREMITIES: No cyanosis, clubbing, or pedal edema. NEUROLOGICAL: Gross neurological examination did not reveal any focal deficits. SKIN: No rashes. no petechiae. A total of 30 minutes of time were spent preparing this complex discharge summary. Patient was discharged on 02/25/2024 at 2:30 PM. Patient Condition at Discharge: Stable Plan - Discharge Summary Discharge Rx Participant: No New Discharge Prescriptions: No Action Isosorbide Mononitrate [Imdur] 60 mg PO HS Warfarin [Coumadin] 2.5 mg PO MO@1830 Aspirin 81 mg PO DAILY@0730 Digoxin [Lanoxin] 125 mcg PO HS Simvastatin [Zocor] 40 mg PO HS Warfarin [Coumadin] 1.25 mg PO SUTUWETHFRSA@1830 Metoprolol Tartrate [Lopressor] 75 mg PO BID@0730,1800 Vitamin B Complex 1 cap PO MOTH Cyanocobalamin (Vitamin B-12) [Vitamin B-12] 1,000 mcg PO DAILY Trimethoprim [Trimpex] 100 mg PO DAILY Baclofen 10 mg PO HS Gabapentin 600 mg PO HS Cholecalciferol (Vitamin D3) [Vitamin D3 (50 Mcg = 2000 Iu)] 50 mcg PO DAILY ramipriL [Altace] 5 mg PO HS Discharge Medication List Aspirin 81 mg PO DAILY@0730 09/02/13 [History] Digoxin [Lanoxin] 125 mcg PO HS 09/02/13 [History] Isosorbide Mononitrate [Imdur] 60 mg PO HS 09/02/13 [History] Simvastatin [Zocor] 40 mg PO HS 09/02/13 [History] Warfarin [Coumadin] 2.5 mg PO MO@1830 09/02/13 [History] Warfarin [Coumadin] 1.25 mg PO SUTUWETHFRSA@1830 03/06/18 [History] Metoprolol Tartrate [Lopressor] 75 mg PO BID@0730,1800 04/20/20 [History] Cholecalciferol (Vitamin D3) [Vitamin D3 (50 Mcg = 2000 Iu)] 50 mcg PO DAILY 08/25/23 [History] Cyanocobalamin (Vitamin B-12) [Vitamin B-12] 1,000 mcg PO DAILY 08/25/23 [History] Gabapentin 600 mg PO HS 08/25/23 [History] Vitamin B Complex 1 cap PO MOTH 08/25/23 [History] Baclofen 10 mg PO HS 02/22/24 [History] Trimethoprim [Trimpex] 100 mg PO DAILY 02/22/24 [History] ramipriL [Altace] 5 mg PO HS 02/22/24 [History] Follow up Appointment(s)/Referral(s): Jeison Reyes MD [Primary Care Provider] - 1-2 days Jonas Padilla MD [STAFF PHYSICIAN] - 1 Week Discharge Disposition: TRANSFER TO SNF/ECF
[2024-02-25] MEDS: WARFARIN 2.5 MG TAB PO SCH (17:09)
== END 2024-02-25 17:32 | DRG 698 ==
LOC: EC 18:48 → 5NMEDONC 23:06
PROVIDERS: ADMIT Hospitalist; ATTEND Hospitalist
PROC: 0T9B70Z Drainage of Bladder with Drainage Device, Via Natural or Artificial Opening (ICD-10-PCS; principal; 2024-02-22)
DX: T83.511A Infection and inflammatory reaction due to indwelling urethral catheter, initial encounter (principal); A41.9 Sepsis, unspecified organism; N17.9 Acute kidney failure, unspecified; I48.91 Unspecified atrial fibrillation; I10 Essential (primary) hypertension; N39.0 Urinary tract infection, site not specified; E78.5 Hyperlipidemia, unspecified; N40.1 Benign prostatic hyperplasia with lower urinary tract symptoms; R33.8 Other retention of urine; N28.1 Cyst of kidney, acquired; N35.912 Unspecified bulbous urethral stricture, male; Y73.1 Therapeutic (nonsurgical) and rehabilitative gastroenterology and urology devices associated with adverse incidents; Y84.6 Urinary catheterization as the cause of abnormal reaction of the patient, or of later complication, without mention of misadventure at the time of the procedure; Z79.01 Long term (current) use of anticoagulants; Z85.46 Personal history of malignant neoplasm of prostate; Z86.73 Personal history of transient ischemic attack (TIA), and cerebral infarction without residual deficits; Z92.3 Personal history of irradiation; Z87.440 Personal history of urinary (tract) infections; Z79.899 Other long term (current) drug therapy; I25.2 Old myocardial infarction; Z79.82 Long term (current) use of aspirin; Z87.891 Personal history of nicotine dependence
CPT/HCPCS: 36415; 71046; 76770; 80048; 80053; 81001; 83605; 83735; 84484; 85025; 85610; 85730; 87086; 93005; 96374; 99285

== ENCOUNTER 2024-06-01 18:05 | Inpatient (IN) | payer MEDICARE ==
--- NOTE | 2024-06-01 19:32 | ED ---
General Adult HPI - General Chief complaint: Urogenital Stated complaint: nvd/ weakness discharge 05/31 Time Seen by Provider: 06/01/24 18:52 Source: patient, RN notes reviewed Mode of arrival: ambulatory Limitations: no limitations - History of Present Illness Initial comments: 84-year-old male presents to the emergency department for evaluation of gen eralized weakness. Patient reports that he was unable to get around his house today as he was so weak. He notes that he was just discharged from the hospital yesterday for urinary tract infection. He was advised to go to rehab but the patient did did not want this at the time and therefore he went home. He admits to continued chills - Related Data Home Medications Medication Instructions Recorded Confirmed Aspirin 81 mg PO DAILY@0730 09/02/13 06/02/24 Digoxin [Lanoxin] 125 mcg PO HS 09/02/13 06/02/24 Isosorbide Mononitrate [Imdur] 60 mg PO HS 09/02/13 06/02/24 Simvastatin [Zocor] 40 mg PO HS 09/02/13 06/02/24 Warfarin [Coumadin] 2.5 mg PO MO@1830 09/02/13 06/02/24 Warfarin [Coumadin] 1.25 mg PO SUTUWETHFRSA@1830 03/06/18 06/02/24 Metoprolol Tartrate [Lopressor] 75 mg PO BID@0730,1800 04/20/20 06/02/24 Cholecalciferol (Vitamin D3) 50 mcg PO DAILY 08/25/23 06/02/24 [Vitamin D3 (50 Mcg = 2000 Iu)] Cyanocobalamin (Vitamin B-12) 1,000 mcg PO DAILY 08/25/23 06/02/24 [Vitamin B-12] Gabapentin 600 mg PO HS 08/25/23 06/02/24 Vitamin B Complex 1 cap PO MOTH 08/25/23 06/02/24 Baclofen 10 mg PO HS 02/22/24 06/02/24 ramipriL [Altace] 10 mg PO HS 05/28/24 06/02/24 Previous Rx's Medication Instructions Recorded Tamsulosin [Flomax] 0.4 mg PO BID-W/MEALS 15 Days #30 02/25/24 cap Amoxic-Pot Clav 875-125Mg 1 tab PO Q12HR 7 Days #14 tab 02/08/25 [Augmentin 875-680] Allergies Allergy/AdvReac Type Severity Reaction Status Date / Time No Known Allergies Allergy Verified 06/02/24 07:42 Review of Systems ROS Statement: Those systems with pertinent positive or pertinent negative responses have been documented in the HPI. ROS Other: All systems not noted in ROS Statement are negative. Past Medical History Past Medical History: Atrial Fibrillation, Cancer, CVA/TIA, Hyperlipidemia, Hypertension, Osteoarthritis (OA), Prostate Disorder, Thyroid Disorder Additional Past Medical History / Comment(s): MS, hx. prostate cancer 2014-had radiation. Generator change-01/14/2019 PACEMAKER ONLY, NO DEFIBRILLATOR Last Myocardial Infarction Date:: unk DATE History of Any Multi-Drug Resistant Organisms: None Reported Past Surgical History: Back Surgery, Heart Catheterization, Hernia Repair, Pacemaker Additional Past Surgical History / Comment(s): PACEMAKER, Generator change- 01/14/2019 Past Anesthesia/Blood Transfusion Reactions: No Reported Reaction Additional Past Anesthesia/Blood Transfusion Reaction / Comment(s): NA Type of Cardiac Device: Permanent Pacemaker Device Placement Date:: 05/02/11 Past Psychological History: No Psychological Hx Reported Smoking Status: Former smoker Past Alcohol Use History: Occasional Past Drug Use History: None Reported - Past Family History Mother Family Medical History: Dementia Sister(s) Family Medical History: Cancer Additional Family Medical History / Comment(s): melanoma Father Family Medical History: Myocardial Infarction ([place]) General Exam Limitations: no limitations General appearance: alert, in no apparent distress Head exam: Present: atraumatic, normocephalic, normal inspection Eye exam: Present: normal appearance, PERRL, EOMI. Absent: scleral icterus, conjunctival injection, periorbital swelling ENT exam: Present: normal exam, mucous membranes moist Neck exam: Present: normal inspection. Absent: tenderness, meningismus, lymphadenopathy Respiratory exam: Present: normal lung sounds bilaterally. Absent: respiratory distress, wheezes, rales, rhonchi, stridor Cardiovascular Exam: Present: regular rate, normal rhythm, normal heart sounds. Absent: systolic murmur, diastolic murmur, rubs, gallop, clicks GI/Abdominal exam: Present: soft. Absent: distended, tenderness, guarding, rebound, rigid Extremities exam: Present: normal inspection, full ROM, normal capillary refill. Absent: tenderness, pedal edema, joint swelling, calf tenderness Back exam: Present: normal inspection Neurological exam: Present: alert, oriented X3 Psychiatric exam: Present: normal affect, normal mood Skin exam: Present: warm, dry, intact, normal color. Absent: rash Course Vital Signs 06/01/24 06/01/24 06/02/24 18:16 20:45 01:20 Temperature 99.6 F Pulse Rate 78 75 84 Respiratory 20 18 18 Rate Blood Pressure 156/83 155/73 127/72 O2 Sat by Pulse 95 94 L 96 Oximetry 06/02/24 06/02/24 02:26 06:00 Temperature Pulse Rate 73 80 Respiratory 18 18 Rate Blood Pressure 119/77 118/71 O2 Sat by Pulse 95 95 Oximetry Medical Decision Making - Medical Decision Making Was pt. sent in by a medical professional or institution (, PA, JAVA [employer] APPLICATION DEVELOPER, urgent care, hospital, or skilled nursing...) When possible be specific @ -No Did you speak to anyone other than the patient for history (EMS, parent, family, police, friend...)? What history was obtained from this source @ -No Did you review nursing and triage notes (agree or disagree)? Why? @ -I reviewed and agree with nursing and triage notes Were old charts reviewed (outside hosp., previous admission, EMS record, old EKG, old radiological studies, urgent care reports/EKG's, skilled nursing records)? Report findings @ -No old charts were reviewed Differential Diagnosis (chest pain, altered mental status, abdominal pain women, abdominal pain men, vaginal bleeding, weakness, fever, dyspnea, syncope, headache, dizziness, GI bleed, back pain, seizure, CVA, palpatations, mental health, musculoskeletal)? @ -Differential Weakness: Hypoglycemia, shock, sepsis, hyponatremia, anemia, infection, [place], ETOH, adverse medicine reaction, overdose, stroke, this is not meant to be an all-inclusive list. EKG interpreted by me (3pts min.). @ -EKG at 1858 shows afib rate 74, QRS 111, QTQTc [id number] X-rays interpreted by me (1pt min.). @ -None done CT interpreted by me (1pt min.). @ -None done U/S interpreted by me (1pt. min.). @ -None done What testing was considered but not performed or refused? (CT, X-rays, U/S, labs)? Why? @ -None What meds were considered but not given or refused? Why? @ -None Did you discuss the management of the patient with other professionals (professionals i.e. , PA, JAVA WE[employer] APPLICATION DEVELOPER, lab, RT, psych nurse, social media sr strategy manager, truck unloader, teacher, code enforcement officer, manager of case management)? Give summary @ -Management discussed with [facility] who is accepting of the admission Was smoking cessation discussed for >3mins.? @ -No Was critical care preformed (if so, how long)? @ -No Were there social determinants of health that impacted care today? How? (Homelessness, low income, unemployed, alcoholism, drug addiction, transportation, low edu. Level, literacy, decrease access to med. care, alf, rehab)? @ -No Was there de-escalation of care discussed even if they declined (Discuss DNR or withdrawal of care, Hospice)? DNR status @ -No What co-morbidities impacted this encounter? (DM, HTN, Smoking, COPD, CAD, Cancer, CVA, ARF, Chemo, Hep., AIDS, mental health diagnosis, sleep apnea, morbid obesity)? @ -None Was patient admitted / discharged? Hospital course, mention meds given and route, prescriptions, significant lab abnormalities, going to OR and other pert inent info. @ -Admitted. Presented to emergency department for evaluation of generalized weakness. He was recently admitted for a urinary tract infection and discharged home. Patient states that he was offered rehab at that time but did not want to go. Now he states that he feels he needs to go to rehab. Laboratory studies obtainedHad really no significant leukocytosis, hemoglobin at 11.9; CMP shows creatinine 1.42, potassium 5.6 with hemolysis UA shows trace protein, trace ketones of infectious process. Patient will be continued on his p.o. antibiotics. Patient admitted for possible rehab placement with PT and OT consultation. Case discussed with Dr. Courtney who is accepting of the admission. Case discussed with Dr. Lozano Undiagnosed new problem with uncertain prognosis? @ -No Drug Therapy requiring intensive monitoring for toxicity (Heparin, Nitro, Insulin, Cardizem)? @ -No Were any procedures done? @ -No Diagnosis/symptom? @ -Generalized weakness Acute, or Chronic, or Acute on Chronic? @ -acute Uncomplicated (without systemic symptoms) or Complicated (systemic symptoms)? @ -uncomplicated Side effects of treatment? @ -No Exacerbation, Progression, or Severe Exacerbation? @ -No Poses a threat to life or bodily function? How? (Chest pain, [place], [place], pneumonia, PE, COPD, DKA, ARF, appy, cholecystitis, CVA, Diverticulitis, Homicidal, Suicidal, threat to staff... and all critical care pts) @ -No - Lab Data Result diagrams: 06/04/24 03:14 06/04/24 03:14 Lab Results 06/01/24 06/01/24 06/01/24 Range/Units 19:57 19:57 22:17 WBC 7.4 (3.8-10.6) k/uL RBC 3.93 L (4.30-5.90) m/uL Hgb 11.9 L (13.0-17.5) gm/dL Hct 36.4 L (39.0-53.0) % MCV 92.6 (80.0-100.0) fL MCH 30.4 (25.0-35.0) pg MCHC 32.8 (31.0-37.0) g/dL RDW 14.4 (11.5-15.5) % Plt Count 136 L (150-450) k/uL MPV 7.7 Neutrophils % 85 % Lymphocytes % 4 % Monocytes % 7 % Eosinophils % 3 % Basophils % 0 % Neutrophils # 6.3 (1.3-7.7) k/uL Lymphocytes # 0.3 L (1.0-4.8) k/uL Monocytes # 0.5 (0-1.0) k/uL Eosinophils # 0.3 (0-0.7) k/uL Basophils # 0.0 (0-0.2) k/uL ESR (0-20) mm/Hr PT (10.0-12.5) sec INR (<1.2) Sodium 137 (137-145) mmol/L Potassium 5.6 H (3.5-5.1) mmol/L Chloride 106 (98-107) mmol/L Carbon Dioxide 24 (22-30) mmol/L Anion Gap 7 mmol/L BUN 19 (9-20) mg/dL Creatinine 1.42 H (0.66-1.25) mg/dL Est GFR (CKD-EPI)AfAm 53 (>60 ml/min/1.73 sqM) Est GFR (CKD-EPI)NonAf 46 (>60 ml/min/1.73 sqM) Glucose 95 (74-99) mg/dL Calcium 8.9 (8.4-10.2) mg/dL Total Bilirubin 1.5 H (0.2-1.3) mg/dL AST 53 (17-59) U/L ALT 20 (4-49) U/L Alkaline Phosphatase 28 L (38-126) U/L C-Reactive Protein (<1.0) mg/dL Total Protein 6.5 (6.3-8.2) g/dL Albumin 3.9 (3.5-5.0) g/dL Procalcitonin (0.02-0.50) ng/mL Urine Color Light Yellow Urine Appearance Clear (Clear) Urine pH 6.0 (5.0-8.0) Ur Specific [place] 1.016 (1.001-1.035) Urine Protein Trace H (Negative) Urine Glucose (UA) Negative (Negative) Urine Ketones Trace H (Negative) Urine Blood Trace H (Negative) Urine Nitrite Negative (Negative) Urine Bilirubin Negative (Negative) Urine Urobilinogen <2.0 (<2.0) mg/dL Ur Leukocyte Esterase Negative (Negative) Urine RBC 5 (0-5) /hpf Urine WBC 1 (0-5) /hpf Ur Squamous Epith Cells 1 (0-4) /hpf Urine Bacteria Rare H (None) /hpf Granular Casts 9 (0) /lpf Urine Mucus Rare H (None) /hpf Influenza Type A (PCR) (Not Detectd) Influenza Type B (PCR) (Not Detectd) RSV (PCR) (Not Detectd) SARS-CoV-2 (PCR) (Not Detectd) 06/02/24 06/02/24 06/02/24 Range/Units 08:16 08:16 08:16 WBC 5.7 (3.8-10.6) k/uL RBC 3.83 L (4.30-5.90) m/uL Hgb 11.3 L (13.0-17.5) gm/dL Hct 35.2 L (39.0-53.0) % MCV 92.1 (80.0-100.0) fL MCH 29.5 (25.0-35.0) pg MCHC 32.0 (31.0-37.0) g/dL RDW 14.6 (11.5-15.5) % Plt Count 124 L (150-450) k/uL MPV 7.3 Neutrophils % 83 % Lymphocytes % 6 % Monocytes % 7 % Eosinophils % 2 % Basophils % 0 % Neutrophils # 4.7 (1.3-7.7) k/uL Lymphocytes # 0.3 L (1.0-4.8) k/uL Monocytes # 0.4 (0-1.0) k/uL Eosinophils # 0.1 (0-0.7) k/uL Basophils # 0.0 (0-0.2) k/uL ESR 11 (0-20) mm/Hr PT (10.0-12.5) sec INR (<1.2) Sodium 139 (137-145) mmol/L Potassium 3.9 (3.5-5.1) mmol/L Chloride 107 (98-107) mmol/L Carbon Dioxide 21 L (22-30) mmol/L Anion Gap 11 mmol/L BUN 18 (9-20) mg/dL Creatinine 1.43 H (0.66-1.25) mg/dL Est GFR (CKD-EPI)AfAm 53 (>60 ml/min/1.73 sqM) Est GFR (CKD-EPI)NonAf 46 (>60 ml/min/1.73 sqM) Glucose 112 H (74-99) mg/dL Calcium 8.9 (8.4-10.2) mg/dL Total Bilirubin (0.2-1.3) mg/dL AST (17-59) U/L ALT (4-49) U/L Alkaline Phosphatase (38-126) U/L C-Reactive Protein (<1.0) mg/dL Total Protein (6.3-8.2) g/dL Albumin (3.5-5.0) g/dL Procalcitonin (0.02-0.50) ng/mL Urine Color Urine Appearance (Clear) Urine pH (5.0-8.0) Ur Specific [place] (1.001-1.035) Urine Protein (Negative) Urine Glucose (UA) (Negative) Urine Ketones (Negative) Urine Blood (Negative) Urine Nitrite (Negative) Urine Bilirubin (Negative) Urine Urobilinogen (<2.0) mg/dL Ur Leukocyte Esterase (Negative) Urine RBC (0-5) /hpf Urine WBC (0-5) /hpf Ur Squamous Epith Cells (0-4) /hpf Urine Bacteria (None) /hpf Granular Casts (0) /lpf Urine Mucus (None) /hpf Influenza Type A (PCR) (Not Detectd) Influenza Type B (PCR) (Not Detectd) RSV (PCR) (Not Detectd) SARS-CoV-2 (PCR) (Not Detectd) 06/02/24 06/02/24 06/02/24 Range/Units 08:16 08:16 10:34 WBC (3.8-10.6) k/uL RBC (4.30-5.90) m/uL Hgb (13.0-17.5) gm/dL Hct (39.0-53.0) % MCV (80.0-100.0) fL MCH (25.0-35.0) pg MCHC (31.0-37.0) g/dL RDW (11.5-15.5) % Plt Count (150-450) k/uL MPV Neutrophils % % Lymphocytes % % Monocytes % % Eosinophils % % Basophils % % Neutrophils # (1.3-7.7) k/uL Lymphocytes # (1.0-4.8) k/uL Monocytes # (0-1.0) k/uL Eosinophils # (0-0.7) k/uL Basophils # (0-0.2) k/uL ESR (0-20) mm/Hr PT 22.8 H (10.0-12.5) sec INR 2.3 H (<1.2) Sodium (137-145) mmol/L Potassium (3.5-5.1) mmol/L Chloride (98-107) mmol/L Carbon Dioxide (22-30) mmol/L Anion Gap mmol/L BUN (9-20) mg/dL Creatinine (0.66-1.25) mg/dL Est GFR (CKD-EPI)AfAm (>60 ml/min/1.73 sqM) Est GFR (CKD-EPI)NonAf (>60 ml/min/1.73 sqM) Glucose (74-99) mg/dL Calcium (8.4-10.2) mg/dL Total Bilirubin (0.2-1.3) mg/dL AST (17-59) U/L ALT (4-49) U/L Alkaline Phosphatase (38-126) U/L C-Reactive Protein 3.8 H (<1.0) mg/dL Total Protein (6.3-8.2) g/dL Albumin (3.5-5.0) g/dL Procalcitonin 0.11 (0.02-0.50) ng/mL Urine Color Urine Appearance (Clear) Urine pH (5.0-8.0) Ur Specific [place] (1.001-1.035) Urine Protein (Negative) Urine Glucose (UA) (Negative) Urine Ketones (Negative) Urine Blood (Negative) Urine Nitrite (Negative) Urine Bilirubin (Negative) Urine Urobilinogen (<2.0) mg/dL Ur Leukocyte Esterase (Negative) Urine RBC (0-5) /hpf Urine WBC (0-5) /hpf Ur Squamous Epith Cells (0-4) /hpf Urine Bacteria (None) /hpf Granular Casts (0) /lpf Urine Mucus (None) /hpf Influenza Type A (PCR) (Not Detectd) Influenza Type B (PCR) (Not Detectd) RSV (PCR) (Not Detectd) SARS-CoV-2 (PCR) (Not Detectd) 06/02/24 06/03/24 Range/Units 14:23 03:29 WBC (3.8-10.6) k/uL RBC (4.30-5.90) m/uL Hgb (13.0-17.5) gm/dL Hct (39.0-53.0) % MCV (80.0-100.0) fL MCH (25.0-35.0) pg MCHC (31.0-37.0) g/dL RDW (11.5-15.5) % Plt Count (150-450) k/uL MPV Neutrophils % % Lymphocytes % % Monocytes % % Eosinophils % % Basophils % % Neutrophils # (1.3-7.7) k/uL Lymphocytes # (1.0-4.8) k/uL Monocytes # (0-1.0) k/uL Eosinophils # (0-0.7) k/uL Basophils # (0-0.2) k/uL ESR (0-20) mm/Hr PT 19.4 H (10.0-12.5) sec INR 1.9 H (<1.2) Sodium (137-145) mmol/L Potassium (3.5-5.1) mmol/L Chloride (98-107) mmol/L Carbon Dioxide (22-30) mmol/L Anion Gap mmol/L BUN (9-20) mg/dL Creatinine (0.66-1.25) mg/dL Est GFR (CKD-EPI)AfAm (>60 ml/min/1.73 sqM) Est GFR (CKD-EPI)NonAf (>60 ml/min/1.73 sqM) Glucose (74-99) mg/dL Calcium (8.4-10.2) mg/dL Total Bilirubin (0.2-1.3) mg/dL AST (17-59) U/L ALT (4-49) U/L Alkaline Phosphatase (38-126) U/L C-Reactive Protein (<1.0) mg/dL Total Protein (6.3-8.2) g/dL Albumin (3.5-5.0) g/dL Procalcitonin (0.02-0.50) ng/mL Urine Color Urine Appearance (Clear) Urine pH (5.0-8.0) Ur Specific [place] (1.001-1.035) Urine Protein (Negative) Urine Glucose (UA) (Negative) Urine Ketones (Negative) Urine Blood (Negative) Urine Nitrite (Negative) Urine Bilirubin (Negative) Urine Urobilinogen (<2.0) mg/dL Ur Leukocyte Esterase (Negative) Urine RBC (0-5) /hpf Urine WBC (0-5) /hpf Ur Squamous Epith Cells (0-4) /hpf Urine Bacteria (None) /hpf Granular Casts (0) /lpf Urine Mucus (None) /hpf Influenza Type A (PCR) Detected A (Not Detectd) Influenza Type B (PCR) Not Detected (Not Detectd) RSV (PCR) Not Detected (Not Detectd) SARS-CoV-2 (PCR) Not Detected (Not Detectd) Disposition Clinical Impression: Generalized weakness Disposition: ADMITTED IP TO THIS HOSP Condition: Stable Is patient prescribed a controlled substance at d/c from ED?: No
[2024-06-01 20:18] LABS: Basophils % (A) 0 %; Eosinophils # (A) 0.3 k/uL (0-0.7); Eosinophils % (A) 3 %; HCT 36.4 % (39.0-53.0); HGB 11.9 gm/dL (13.0-17.5); Lymphocytes # (A) 0.3 k/uL (1.0-4.8); Lymphocytes % (A) 4 %; MCH 30.4 pg (25.0-35.0); MCHC 32.8 g/dL (31.0-37.0); MCV 92.6 fL (80.0-100.0); Mean Platelet Volume 7.7; Monocytes # (A) 0.5 k/uL (0-1.0); Monocytes % (A) 7 %; Neutrophils # (A) 6.3 k/uL (1.3-7.7); Neutrophils % (A) 85 %; Platelet Count 136 k/uL (150-450); RBC 3.93 m/uL (4.30-5.90); RDW 14.4 % (11.5-15.5); WBC 7.4 k/uL (3.8-10.6)
[2024-06-01 20:45] LABS: ALT 20 U/L (4-49); AST 53 U/L (17-59); African American GFR (CKD) 53 (>60 ml/min/1.73 sqM); Albumin 3.9 g/dL (3.5-5.0); Alkaline Phosphatase 28 U/L (38-126); Anion Gap 7 mmol/L; Blood Urea Nitrogen 19 mg/dL (9-20); Calcium 8.9 mg/dL (8.4-10.2); Carbon Dioxide 24 mmol/L (22-30); Chloride 106 mmol/L (98-107); Glucose 95 mg/dL (74-99); Non-African American GFR(CKD) 46 (>60 ml/min/1.73 sqM); Sodium 137 mmol/L (137-145); Total Bilirubin 1.5 mg/dL (0.2-1.3); Total Protein 6.5 g/dL (6.3-8.2)
[2024-06-01 20:49] LABS: Potassium 5.6 mmol/L (3.5-5.1)
[2024-06-01 22:44] LABS: Appearance,Urine Clear (Clear); Bacteria,Urine Rare /hpf; Bilirubin,Urine Negative (Negative); Blood,Urine Trace (Negative); Color,Urine Light Yellow; Glucose,Urine (UA) Negative (Negative); Granular Casts,Urine 9 /lpf (0); Ketones,Urine Trace (Negative); Leukocyte Esterase,Urine Negative (Negative); Mucus,Urine Rare /hpf; Nitrite,Urine Negative (Negative); Protein,Urine Trace (Negative); RBC,Urine 5 /hpf (0-5); Specific Gravity,Urine 1.016 (1.001-1.035); Squamous Epithelial Cell,Urine 1 /hpf (0-4); Urobilinogen,Urine <2.0 mg/dL (<2.0); WBC,Urine 1 /hpf (0-5)
[2024-06-01] MEDS ORDERED: MORPHINE SULFATE 2 MG/ML SYRINGE IV PRN (22:50)
[2024-06-01] MEDS ORDERED: NALOXONE 0.4 MG/ML 1 ML VIAL IV PRN (22:50)
[2024-06-01] MEDS: ACETAMINOPHEN TAB 325 MG TAB PO STA (23:08)
[2024-06-01] MEDS: AMOXIC-POT CLAV 875-125MG 1 EACH TAB PO SCH (23:09)
[2024-06-02] MEDS: ACETAMINOPHEN TAB 325 MG TAB PO PRN (05:39)
[2024-06-02 08:37] LABS: Basophils % (A) 0 %; Eosinophils # (A) 0.1 k/uL (0-0.7); Eosinophils % (A) 2 %; HCT 35.2 % (39.0-53.0); HGB 11.3 gm/dL (13.0-17.5); Lymphocytes # (A) 0.3 k/uL (1.0-4.8); Lymphocytes % (A) 6 %; MCH 29.5 pg (25.0-35.0); MCV 92.1 fL (80.0-100.0); Mean Platelet Volume 7.3; Monocytes # (A) 0.4 k/uL (0-1.0); Monocytes % (A) 7 %; Neutrophils # (A) 4.7 k/uL (1.3-7.7); Neutrophils % (A) 83 %; Platelet Count 124 k/uL (150-450); RBC 3.83 m/uL (4.30-5.90); RDW 14.6 % (11.5-15.5); WBC 5.7 k/uL (3.8-10.6)
[2024-06-02 08:49] LABS: African American GFR (CKD) 53 (>60 ml/min/1.73 sqM); Anion Gap 11 mmol/L; Blood Urea Nitrogen 18 mg/dL (9-20); Calcium 8.9 mg/dL (8.4-10.2); Carbon Dioxide 21 mmol/L (22-30); Chloride 107 mmol/L (98-107); Glucose 112 mg/dL (74-99); Non-African American GFR(CKD) 46 (>60 ml/min/1.73 sqM); Potassium 3.9 mmol/L (3.5-5.1); Sodium 139 mmol/L (137-145)
[2024-06-02] MEDS ORDERED: AMOXIC-POT CLAV 875-125MG 1 EACH TAB PO SCH (09:00)
[2024-06-02] MEDS ORDERED: NON FORMULARY DRUG (Vitamin B Complex [Vitamin B Complex] 1 EACH Capsule) PO SCH (10:00)
[2024-06-02 11:17] LABS: INR 2.3 (<1.2); Prothrombin Time 22.8 sec (10.0-12.5)
[2024-06-02] MEDS: LACTOBACILLUS ACIDOPHILUS/PECT 1 EACH CAPSULE PO SCH (13:35)
--- NOTE | 2024-06-02 13:36 | P.HPIM ---
History of Present Illness H&P Date: 06/02/24 Chief Complaint: Generalized weakness Patient is a 84 year-old male with a atrial fibrillation on warfarin, with permanent pacemaker, history of CVA/TIA, hyperlipidemia, hypertension, prostate cancer with radiation in 2015 currently in remission, thyroid disorder, osteoarthritis, and recurrent UTIs secondary to neurogenic bladder(follow with Dr. Padilla) presenting with generalized weakness and chills. Patient was recently discharged for UTI and weakness and started on oral antibiotic course. Typically ambulates with walker. He states this came on yesterday afternoon, when he had trouble getting out of recliner. Shortly after, he was not able to stand up. Patient endorsing chills and diarrhea since starting Augmentin. Denies shortness of breath, chest pain, bodyaches, nausea, vomiting, back, neck pain, cough, sore throat. Admits to history of multiple UTI due to self- catheterization 4 times daily. States he feels weaker every time he has a UTI. Patient denied dysuria, hematuria. Vitals on admission Temperature 99.6, heart rate 78 bpm, respiratory rate 20, blood pressure 156/83, O2 saturation 95% on room air EKG independently interpreted as regular rate 74 bpm, QTc 375 ms Labs on admission show WBC 7.4, hemoglobin 11.9, MCV 93.6, platelets 136. Sodium 137, potassium 5.6(slight hemolysis) repeat was 3.9, chloride 106, bicarb 24, BUN 19, creatinine 1.42, glucose 97. UA was negative for leukocyte esterase, trace protein, trace ketones trace blood. Review of systems: Pertinent positives and negatives as discussed in HPI, a complete review of systems was performed and all other systems are negative. Allergies: NKDA PCP: Dr. Jeison Reyes Social history: Tobacco: none Alcohol: occasionsl Recreational drugs: none Travel: none Sick contacts: none Physical examination: Vital signs reviewed General: nontoxic, no distress, appears at stated age Derm: warm, dry, intact Head: atraumatic, normocephalic, symmetric Eyes: anicteric sclera Mouth: no lip lesion, mucus membranes moist Cardiovascular: S1 S2 reg, no murmur Lungs: CTA bilateral, no rhonchi, no rales, no accessory muscle use Abdominal: soft, non-tender to palpation, distended Extremities: No cyanosis, clubbing, or pedal edema. Neuro: Alert, Oriented to person, time and place, Gross neurological examination did not reveal any focal deficits. Cranial nerves II to XII grossly intact. Bilateral upper and lower extremity muscle strength intact and sensation intact. Psych: well appearing, appropriate affect Assessment/Plan: 84 year-old male with a atrial fibrillation on warfarin, with permanent pacemaker, history of CVA/TIA, hyperlipidemia, hypertension, prostate cancer with radiation in 2015 currently in remission, thyroid disorder, osteoarthritis, and recurrent UTIs secondary to neurogenic bladder(follow with Dr. Padilla) presenting with generalized weakness and chills. Active: Generalized weakness & chills without source of infection Recent admission for UTI PT/OT consulted, appreciate recommendations Will discuss MARY with case management for discharge Intake output, bladder scan as needed Follow-up renal ultrasound Follow-up blood cultures Follow-up Cepheid Follow-up CRP and ESR Follow-up procalcitonin Chronic kidney disease Close to baseline History of recurrent UTI and urinary retention Chronic: Atrial fibrillation, on warfarin with permanent pacemaker INR is 2.3, continue to monitor Continue metoprolol 75 mg p.o. twice daily Keep potassium > 4.0 and magnesium > 2 Continue with digoxin 125 mcg p.o. at bedtime Cardiac monitoring Hypertension History of CVA/TIA Hyperlipidemia Continue atorvastatin 40 mg p.o. at bedtime Aspirin 81 mg p.o. daily Continue Ramipril 10mg PO HS Continue with metoprolol 75 mg p.o. twice daily BPH Continue with Flomax 0.4 mg p.o. twice daily F: None E: Replete as needed N: Heart healthy diet A: PT/OT consulted DVT prophylaxis: Warfarin for Afib Attestation I have seen and examined this patient with my resident , discussed the same with the resident/NANCY, and agree with the dictator's assessment and plan as written GENERAL: The patient is alert and oriented x3, not in any acute distress. Well developed, well nourished. HEENT: Pupils are round and equally reacting to light. EOMI. No scleral icterus. No conjunctival pallor. Normocephalic, atraumatic. No pharyngeal erythema. No thyromegaly. CARDIOVASCULAR: S1 and S2 present. No murmurs, rubs, or gallops. PULMONARY: Chest is clear to auscultation, no wheezing or crackles. ABDOMEN: Soft, nontender, nondistended, normoactive bowel sounds. No palpable organomegaly. MUSCULOSKELETAL: No joint swelling or deformity. EXTREMITIES: No cyanosis, clubbing, or pedal edema. NEUROLOGICAL: Gross neurological examination did not reveal any focal deficits. SKIN: No rashes. Dr. Oswald santos Past Medical History Past Medical History: Atrial Fibrillation, Cancer, CVA/TIA, Hyperlipidemia, Hypertension, Osteoarthritis (OA), Prostate Disorder, Thyroid Disorder Additional Past Medical History / Comment(s): MS, hx. prostate cancer 2015-had radiation. Generator change-01/14/2019 PACEMAKER ONLY, NO DEFIBRILLATOR Last Myocardial Infarction Date:: unk DATE History of Any Multi-Drug Resistant Organisms: None Reported Past Surgical History: Back Surgery, Heart Catheterization, Hernia Repair, Pacemaker Additional Past Surgical History / Comment(s): PACEMAKER, Generator change- 01/14/2019 Past Anesthesia/Blood Transfusion Reactions: No Reported Reaction Additional Past Anesthesia/Blood Transfusion Reaction / Comment(s): NA Type of Cardiac Device: Permanent Pacemaker Device Placement Date:: 05/02/11 Past Psychological History: No Psychological Hx Reported Smoking Status: Former smoker Past Alcohol Use History: Occasional Past Drug Use History: None Reported - Past Family History Mother Family Medical History: Dementia Sister(s) Family Medical History: Cancer Additional Family Medical History / Comment(s): melanoma Father Family Medical History: Myocardial Infarction ([place]) Medications and Allergies Home Medications Medication Instructions Recorded Confirmed Type Aspirin 81 mg PO DAILY@0730 09/02/13 06/02/24 History Digoxin [Lanoxin] 125 mcg PO 09/02/13 06/02/24 History Isosorbide Mononitrate [Imdur] 60 mg PO 09/02/13 06/02/24 History Simvastatin [Zocor] 40 mg PO 09/02/13 06/02/24 History Warfarin [Coumadin] 2.5 mg PO MO@1830 09/02/13 06/02/24 History Warfarin [Coumadin] 1.25 mg PO SUTUWETHFRSA@1830 03/06/18 06/02/24 History Metoprolol Tartrate [Lopressor] 75 mg PO BID@0730,1800 04/20/20 06/02/24 History Cholecalciferol (Vitamin D3) 50 mcg PO DAILY 08/25/23 06/02/24 History [Vitamin D3 (50 Mcg = 2000 Iu)] Cyanocobalamin (Vitamin B-12) 1,000 mcg PO DAILY 08/25/23 06/02/24 History [Vitamin B-12] Gabapentin 600 mg PO HS 08/25/23 06/02/24 History Vitamin B Complex 1 cap PO MOTH 08/25/23 06/02/24 History Baclofen 10 mg PO HS 02/22/24 06/02/24 History Tamsulosin [Flomax] 0.4 mg PO BID-W/MEALS 15 Days #30 02/25/24 06/02/24 Rx cap ramipriL [Altace] 10 mg PO HS 05/28/24 06/02/24 History Amoxic-Pot Clav 875-125Mg 1 tab PO Q12HR 7 Days #14 tab 05/31/24 06/02/24 Rx [Augmentin 875-125] Allergies Allergy/AdvReac Type Severity Reaction Status Date / Time No Known Allergies Allergy Verified 06/02/24 07:42 Physical Exam Vitals: Vital Signs Temp Pulse Resp BP Pulse Ox 06/02/24 06:00 80 18 118/71 95 06/02/24 02:26 73 18 119/77 95 06/02/24 01:20 84 18 127/72 96 06/01/24 20:45 75 18 155/73 94 L 06/01/24 18:16 99.6 F 78 20 156/83 95 Intake and Output 06/01/24 06/02/24 06/02/24 22:59 06:59 14:59 Other: Voiding Method Toilet Weight 77.111 kg Results CBC & Chem 7: 06/02/24 08:16 06/02/24 08:16 Labs: Abnormal Lab Results - Last 24 Hours (Table) 06/01/24 06/01/24 06/01/24 Range/Units 19:57 19:57 22:17 RBC 3.93 L (4.30-5.90) m/uL Hgb 11.9 L (13.0-17.5) gm/dL Hct 36.4 L (39.0-53.0) % Plt Count 136 L (150-450) k/uL Lymphocytes # 0.3 L (1.0-4.8) k/uL Potassium 5.6 H (3.5-5.1) mmol/L Creatinine 1.42 H (0.66-1.25) mg/dL Total Bilirubin 1.5 H (0.2-1.3) mg/dL Alkaline Phosphatase 28 L (38-126) U/L Urine Protein Trace H (Negative) Urine Ketones Trace H (Negative) Urine Blood Trace H (Negative) Urine Bacteria Rare H (None) /hpf Urine Mucus Rare H (None) /hpf
--- NOTE | 2024-06-02 13:54 | US ---
EXAMINATION TYPE: US kidneys/renal and bladder DATE OF EXAM: 06/02/2024 COMPARISON: US February 22, 2024 CLINICAL INDICATION: Male, 84 years old with history of Nephrogenic bladder, hx of recurrent UTIs; Ne phrogenic bladder. Hx of recurrent UTIs TECHNIQUE: Grayscale imaging of the bilateral kidneys and urinary bladder: FINDINGS: EXAM MEASUREMENTS: Right Kidney: 13.9 x 6.4 x 6.6 cm Left Kidney: 8.6 x 5.2 x 4.0 cm Right Kidney: Slightly Enlarged. Increased cortical echogenicity redemonstrated. -Anechoic area seen at mid: 2.9 x 2.4 x 2.8 cm. -Complex area seen inferior to right kidney: 4.1 x 0.9 x 1.4 cm. Suspect some perinephric fluid which is nonspecific. Left Kidney: Very limited. Cystic area seen upper: 4.0 x 2.8 x 3.9 cm. -Cystic area seen medially/inferior- question complex mass versus appearance of possible hydro?: 8.1 x 4.2 x 4.9 cm. The latter is favored. Bladder: Anechoic. Bilateral Jets seen: No, only left jet was seen during exam. *Incidental finding: appearance of probable left pleural effusion in LUQ imaging. IMPRESSION: Suboptimal study with suspicion for moderate left sided hydronephrosis. Consider further investigatio n with contrast-enhanced CT exam and nuclear medicine renal function study. [facility], , 06/02/2024 1:51 PM
[2024-06-02 15:17] LABS: Influenza A Detected (Not Detectd); Influenza B Not Detected (Not Detectd); RSV Not Detected (Not Detectd)
[2024-06-02] MEDS: WARFARIN 1.25 MG TAB PO SCH (18:02)
[2024-06-02] MEDS: TAMSULOSIN 0.4 MG CAP.ER.24H PO SCH (18:02)
[2024-06-02] MEDS: METOPROLOL TARTRATE 25 MG TAB PO SCH (18:02)
[2024-06-02] MEDS: OSELTAMIVIR 30 MG CAP PO SCH (18:03)
[2024-06-02] MEDS ORDERED: WARFARIN 2.5 MG TAB PO SCH (18:30)
[2024-06-02] MEDS: BACLOFEN 10 MG TAB PO SCH (21:16)
[2024-06-02] MEDS: ISOSORBIDE MONONITRATE ER 60 MG TAB.ER.24H PO SCH (21:16)
[2024-06-02] MEDS: GABAPENTIN 300 MG CAP PO SCH (21:16)
[2024-06-02] MEDS: ATORVASTATIN 20 MG TAB PO SCH (21:16)
[2024-06-02] MEDS: lisinopriL 20 MG TAB PO SCH (21:17)
[2024-06-02] MEDS: DIGOXIN 125 MCG TAB PO SCH (21:19)
[2024-06-03] MEDS: SODIUM CHLORIDE 0.9% 1,000 ML IV ONE (02:00)
[2024-06-03] MEDS: SODIUM CHLORIDE 0.9% 1,000 ML IV SCH (03:16)
[2024-06-03 05:08] LABS: INR 1.9 (<1.2); Prothrombin Time 19.4 sec (10.0-12.5)
[2024-06-03] MEDS: ASPIRIN 81 MG PO SCH (06:57)
[2024-06-03] MEDS: CHOLECALCIFEROL 25 MCG (1000 IU) TABLET PO SCH (08:06)
[2024-06-03] MEDS: CYANOCOBALAMIN 500 MCG TAB PO SCH (08:07)
--- NOTE | 2024-06-03 13:08 | P.PN ---
Subjective Progress Note Date: 06/03/24 Principal diagnosis: Hospital course: Patient is a 84 year-old male with a atrial fibrillation on warfarin, with permanent pacemaker, history of CVA/TIA, hyperlipidemia, hypertension, prostate cancer with radiation in 2015 currently in remission, thyroid disorder, osteoarthritis, and recurrent UTIs secondary to neurogenic bladder(follow with Dr. Padilla) presenting with generalized weakness and chills. Patient was recently discharged for UTI and weakness and started on oral antibiotic course. Typically ambulates with walker. He states this came on yesterday afternoon, when he had trouble getting out of recliner. Shortly after, he was not able to stand up. Patient endorsing chills and diarrhea since starting Augmentin. Denies shortness of breath, chest pain, bodyaches, nausea, vomiting, back, neck pain, cough, sore throat. Admits to history of multiple UTI due to self- catheterization 4 times daily. States he feels weaker every time he has a UTI. Patient denied dysuria, hematuria. Vitals on admission Temperature 99.6, heart rate 78 bpm, respiratory rate 20, blood pressure 156/83, O2 saturation 95% on room air EKG independently interpreted as regular rate 74 bpm, QTc 375 ms Labs on admission show WBC 7.4, hemoglobin 11.9, MCV 93.6, platelets 136. Sodium 137, potassium 5.6(slight hemolysis) repeat was 3.9, chloride 106, bicarb 24, BUN 19, creatinine 1.42, glucose 97. UA was negative for leukocyte esterase, trace protein, trace ketones trace blood. 06/03/24: Patient seen and examined at bedside today. Patient is on 3L O2 via nasal cannula and is saturating at 90%. Labs today show PT 19.4, INR 1.9. Respiratory panel is positive for influenza A. CRP is 3.8 and ESR 11, Pro-Zhen 0.11. Abdomen bladder ultrasound shows suspicion for moderate left-sided hydronephrosis. Review of systems: Pertinent positives and negatives as discussed in HPI, a complete review of systems was performed and all other systems are negative. Vitals: Signs Reviewed Physical examination: General: nontoxic, no distress, appears at stated age Derm: warm, dry, intact Head: atraumatic, normocephalic, symmetric Eyes: anicteric sclera Mouth: no lip lesion, mucus membranes moist Cardiovascular: S1 S2 reg, no murmur Lungs: CTA bilateral, no rhonchi, no rales, no accessory muscle use Abdominal: soft, non-tender to palpation, distended Extremities: No cyanosis, clubbing, or pedal edema. Neuro: Alert, Oriented to person, time and place, Gross neurological examination did not reveal any focal deficits. Cranial nerves II to XII grossly intact. Bilateral upper and lower extremity muscle strength intact and sensation intact. Psych: well appearing, appropriate affect Assessment/Plan: 84 year-old male with a atrial fibrillation on warfarin, with permanent pacema ker, history of CVA/TIA, hyperlipidemia, hypertension, prostate cancer with radiation in 2015 currently in remission, thyroid disorder, osteoarthritis, and recurrent UTIs secondary to neurogenic bladder(follow with Dr. Padilla) presenting with generalized weakness and chills. Active: #. Generalized weakness & chills likely secondary to infections #. Influenza A infection #. Recent admission for UTI Respiratory panel is positive for influenza A CRP is 3.8, ESR 11, Pro-Zhen 0.11 Continue Oseltamivir 30 mg PO Q12HR, 4/10 doses Continue Augmentin 875-125 PO BID, 3/6 days Intake output, bladder scan as needed Abdomen bladder ultrasound shows suspicion for moderate left-sided hydronephrosis Follow-up blood cultures PT/OT consulted, recommend MARY #. Chronic kidney disease Close to baseline History of recurrent UTI and urinary retention Chronic: #. Atrial fibrillation, on warfarin with permanent pacemaker INR is 1.9, continue to monitor Continue metoprolol 75 mg p.o. twice daily Keep potassium > 4.0 and magnesium > 2 Continue with digoxin 125 mcg p.o. at bedtime Cardiac monitoring #. Hypertension #. History of CVA/TIA #. Hyperlipidemia Continue atorvastatin 40 mg p.o. at bedtime Aspirin 81 mg p.o. daily Continue Ramipril 10mg PO HS Continue with metoprolol 75 mg p.o. twice daily #. BPH Continue with Flomax 0.4 mg p.o. twice daily F: 0.9 normal saline at 75 ml/hr E: Replete as needed N: Heart healthy diet A: PT/OT consulted DVT prophylaxis: Warfarin for Afib Attestation I have seen and examined this patient with my resident , discussed the same with the resident/NANCY, and agree with the dictator's assessment and plan as written GENERAL: The patient is alert and oriented x3, not in any acute distress. Well developed, well nourished. HEENT: Pupils are round and equally reacting to light. EOMI. No scleral icterus. No conjunctival pallor. Normocephalic, atraumatic. No pharyngeal erythema. No thyromegaly. CARDIOVASCULAR: S1 and S2 present. No murmurs, rubs, or gallops. PULMONARY: Chest is clear to auscultation, no wheezing or crackles. ABDOMEN: Soft, nontender, nondistended, normoactive bowel sounds. No palpable organomegaly. MUSCULOSKELETAL: No joint swelling or deformity. EXTREMITIES: No cyanosis, clubbing, or pedal edema. NEUROLOGICAL: Gross neurological examination did not reveal any focal deficits. SKIN: No rashes. Dr. Oswald santos Objective - Vital Signs Vital signs: Vital Signs Temp 98.4 F 06/03/24 07:05 Pulse 88 06/03/24 07:05 Resp 18 06/03/24 07:05 BP 152/72 06/03/24 07:05 Pulse Ox 90 L 06/03/24 07:05 FiO2 Intake & Output 06/02/24 06/03/24 06/03/24 18:59 06:59 18:59 Intake Total 1620 Output Total 1150 300 350 Balance 470 -300 -350 Weight 77.111 kg Intake: Oral 1620 Output: Urine 1150 300 350 Straight 1150 300 350 Other: Voiding Method Self-Catheterization # Bowel Movements 2 - Labs CBC & Chem 7: 06/04/24 03:14 06/04/24 03:14 Labs: Abnormal Lab Results - Last 24 Hours (Table) 06/02/24 06/02/24 06/02/24 Range/Units 08:16 08:16 08:16 RBC 3.83 L (4.30-5.90) m/uL Hgb 11.3 L (13.0-17.5) gm/dL Hct 35.2 L (39.0-53.0) % Plt Count 124 L (150-450) k/uL Lymphocytes # 0.3 L (1.0-4.8) k/uL PT (10.0-12.5) sec INR (<1.2) Carbon Dioxide 21 L (22-30) mmol/L Creatinine 1.43 H (0.66-1.25) mg/dL Glucose 112 H (74-99) mg/dL C-Reactive Protein 3.8 H (<1.0) mg/dL Influenza Type A (PCR) (Not Detectd) 06/02/24 06/02/24 06/03/24 Range/Units 10:34 14:23 03:29 RBC (4.30-5.90) m/uL Hgb (13.0-17.5) gm/dL Hct (39.0-53.0) % Plt Count (150-450) k/uL Lymphocytes # (1.0-4.8) k/uL PT 22.8 H 19.4 H (10.0-12.5) sec INR 2.3 H 1.9 H (<1.2) Carbon Dioxide (22-30) mmol/L Creatinine (0.66-1.25) mg/dL Glucose (74-99) mg/dL C-Reactive Protein (<1.0) mg/dL Influenza Type A (PCR) Detected A (Not Detectd)
[2024-06-03] MEDS: WARFARIN 2 MG TAB PO ONE (17:05)
[2024-06-04 04:02] LABS: INR 1.8 (<1.2); Prothrombin Time 18.2 sec (10.0-12.5)
--- NOTE | 2024-06-04 08:30 | XR ---
EXAMINATION TYPE: XR chest 1V portable DATE OF EXAM: 06/04/2024 CLINICAL HISTORY: Influenza. TECHNIQUE: 2 frontal views of the chest are obtained. COMPARISON: Chest x-ray from February 21, 2024 FINDINGS: Persisting cardiomegaly with dual lead pacemaker. There is new small right pleural effusio n and moderate-sized left pleural effusion. There are bibasilar opacities. Background chronic parench ymal change and atherosclerotic thoracic aorta. Osseous structures are intact. IMPRESSION: Cardiomegaly with new small right and moderate-sized left pleural effusions and new left greater than right bibasilar acute infiltrate and/or atelectasis. [facility], , 06/04/2024 8:27 AM
[2024-06-04 08:49] LABS: BUN/Creat Ratio 16.07 Ratio (12.00-20.00); Blood Urea Nitrogen 24.1 mg/dL (9.0-27.0); Calcium 7.9 mg/dL (8.7-10.3); Carbon Dioxide 23.2 mmol/L (21.6-31.8); Chloride 106 mmol/L (96-109); Glucose 95 mg/dL (70-110); Potassium 3.8 mmol/L (3.5-5.5); Sodium 138 mmol/L (135-145)
[2024-06-04 08:50] LABS: HCT 32.4 % (39.6-50.0); HGB 10.5 g/dL (13.0-17.0); MCH 29.6 pg (27.0-32.0); MCHC 32.4 g/dL (32.0-37.0); MCV 91.3 FL (80.0-97.0); Mean Platelet Volume 10.5 FL (9.5-12.2); NRBC Per 100 WBC 0 X 10*3/uL (0.00-0.01); Platelet Count 108 X 10*3/uL (140-440); RBC 3.55 X 10*6/uL (4.40-5.60); WBC 4.21 X 10*3/uL (4.50-10.00)
[2024-06-04] MEDS: FUROSEMIDE 10 MG/ML 2 ML VIAL IV ONE (11:29)
--- NOTE | 2024-06-04 16:37 | P.PN ---
Subjective Progress Note Date: 06/04/24 Hospital Course: Patient is a 84 year-old male with a atrial fibrillation on warfarin, with permanent pacemaker, history of CVA/TIA, hyperlipidemia, hypertension, prostate cancer with radiation in 2015 currently in remission, thyroid disorder, osteoarthritis, and recurrent UTIs secondary to neurogenic bladder(follow with Dr. Padilla) presenting with generalized weakness and chills. Patient was recently discharged for UTI and weakness and started on oral antibiotic course. Typically ambulates with walker. He states this came on yesterday afternoon, when he had trouble getting out of recliner. Shortly after, he was not able to stand up. Patient endorsing chills and diarrhea since starting Augmentin. Denies shortness of breath, chest pain, bodyaches, nausea, vomiting, back, neck pain, cough, sore throat. Admits to history of multiple UTI due to self- catheterization 4 times daily. States he feels weaker every time he has a UTI. Patient denied dysuria, hematuria. Vitals on admission Temperature 99.6, heart rate 78 bpm, respiratory rate 20, blood pressure 156/83, O2 saturation 95% on room air EKG independently interpreted as regular rate 74 bpm, QTc 375 ms Labs on admission show WBC 7.4, hemoglobin 11.9, MCV 93.6, platelets 136. Sodium 137, potassium 5.6(slight hemolysis) repeat was 3.9, chloride 106, bicarb 24, BUN 19, creatinine 1.42, glucose 97. UA was negative for leukocyte esterase, trace protein, trace ketones trace blood. 06/04/24 Patient seen and examined at bedside. No acute events overnight. Patient is endorsing some cough. Patient had fever this morning of 102.7 which has since resolved. Blood cultures were ordered and will be completed tomorrow. Patient states he has had decreased oral intake and would like some Ensure. Pertinent positives and negatives discussed above, a complete review of systems was preformed and all the other systems were negative. Vitals Signs Reviewed. General: non toxic, no distress, appears at stated age, normal weight Derm: no unusual rashes/lesions, warm Head: atraumatic, normocephalic, symmetric Eyes: EOMI, anicteric sclera, pupils equal round reactive to light ENT: Nose and ears atraumatic Neck: No cervical lymphadenopathy, trachea midline, supple Mouth: no lip lesion, mucus membranes moist Cardiovascular: S1S2 reg, no murmur, positive dorsalis pedis pulse bilateral, no edema Lungs: Equal air entry bilaterally, some crackles noted on lung bases bilaterally Abdominal: soft, nontender to palpation, no guarding Ext: muscle strength 5 out of 5 in all 4 extremities grossly, no gross muscle atrophy, no contractures, Neuro: CN II-XI grossly intact, no gross focal neuro deficits Psych: Alert, oriented, appropriate affect Data Reviewed Today: Patient Labs: WBCs 4.21, hemoglobin 10.5, platelets 108. PT 18.2, INR 1.8. Sodium 138, potassium 3.8, chloride 106, bicarb 23.2, BUN 24.1, creatinine 1.5, glucose 95. Calcium 7.9. NT proBNP 5830. Imaging: Chest x-ray shows small pleural effusions bilaterally. Assessment and Plan: 84 year-old male with a atrial fibrillation on warfarin, with permanent pacemaker, history of CVA/TIA, hyperlipidemia, hypertension, prostate cancer with radiation in 2014 currently in remission, thyroid disorder, osteoarthritis, and recurrent UTIs secondary to neurogenic bladder(follow with Dr. Padilla) presenting with generalized weakness and chills. Generalized weakness & chills likely secondary to infections Influenza A infection Recent admission for UTI Continue Oseltamivir 30 mg PO Q12HR, 4/10 doses Continue Augmentin 875-125 PO BID, 4/6 days Intake output, Mendenhall catheter in place Abdomen bladder ultrasound shows suspicion for moderate left-sided hydronephrosis Follow-up blood cultures PT/OT consulted, recommend MARY Encouraged incentive spirometer Chronic kidney disease Close to baseline History of recurrent UTI and urinary retention Chronic: Atrial fibrillation, on warfarin with permanent pacemaker INR is 1.8, continue to monitor Continue metoprolol 75 mg p.o. twice daily Keep potassium > 4.0 and magnesium > 2 Continue with digoxin 125 mcg p.o. at bedtime Cardiac monitoring Hypertension History of CVA/TIA Hyperlipidemia Continue atorvastatin 40 mg p.o. at bedtime Aspirin 81 mg p.o. daily Continue Ramipril 10mg PO HS Continue with metoprolol 75 mg p.o. twice daily BPH Continue with Flomax 0.4 mg p.o. twice daily F: 0.9 normal saline at 75 ml/hr E: Replete as needed N: Heart healthy diet A: PT/OT consulted DVT prophylaxis: Warfarin for Afib Attestation I have seen and examined this patient with my resident , discussed the same with the resident/NANCY, and agree with the dictator's assessment and plan as written GENERAL: The patient is alert and oriented x3, ill looking HEENT: Pupils are round and equally reacting to light. EOMI. No scleral icterus. No conjunctival pallor. Normocephalic, atraumatic. No pharyngeal erythema. No thyromegaly. CARDIOVASCULAR: S1 and S2 present. No murmurs, rubs, or gallops. PULMONARY: Diminished breath sounds at the bases bilaterally, no wheezing or crackles. ABDOMEN: Soft, nontender, nondistended, normoactive bowel sounds. No palpable organomegaly. MUSCULOSKELETAL: No joint swelling or deformity. EXTREMITIES: No cyanosis, clubbing, or pedal edema. NEUROLOGICAL: Gross neurological examination did not reveal any focal deficits. SKIN: No rashes. Dr. Oswald santos Objective - Vital Signs Vital signs: Vital Signs Temp 102.7 F H 06/04/24 07:48 Pulse 64 06/04/24 07:05 Resp 18 06/04/24 07:05 BP 151/63 06/04/24 07:05 Pulse Ox 92 L 06/04/24 07:05 FiO2 Intake & Output 06/03/24 06/04/24 06/04/24 18:59 06:59 18:59 Output Total 350 700 550 Balance -350 -700 -550 Output: Urine 350 700 550 Straight 350 Uretheral (Mendenhall) 700 Other: Voiding Method Indwelling Catheter Self-Catheterization # Bowel Movements 1 1 - Labs CBC & Chem 7: 06/06/24 10:01 06/06/24 10:01 Labs: Abnormal Lab Results - Last 24 Hours (Table) 06/04/24 Range/Units 03:14 PT 18.2 H (10.0-12.5) sec INR 1.8 H (<1.2) Microbiology - Last 24 Hours (Table) 06/02/24 14:02 Blood Culture - Preliminary Blood
[2024-06-04] MEDS: guaiFENesin-DM 100-10MG/5ML 10 ML CUP PO PRN (17:53)
[2024-06-04] MEDS: WARFARIN 2 MG TAB PO ONE (17:53)
[2024-06-05 03:54] LABS: INR 1.9 (<1.2); Prothrombin Time 19.7 sec (10.0-12.5)
[2024-06-05 08:56] LABS: BUN/Creat Ratio 18.57 Ratio (12.00-20.00); Calcium 7.8 mg/dL (8.7-10.3); Carbon Dioxide 24.8 mmol/L (21.6-31.8); Chloride 106 mmol/L (96-109); Glucose 94 mg/dL (70-110); Potassium 3.5 mmol/L (3.5-5.5); Sodium 140 mmol/L (135-145)
[2024-06-05 09:17] LABS: Basophils # (A) 0.01 X 10*3/uL (0.00-0.10); Basophils % (A) 0.3 %; Eosinophils # (A) 0.03 X 10*3/uL (0.04-0.35); HCT 33.7 % (39.6-50.0); HGB 10.8 g/dL (13.0-17.0); Lymphocytes # (A) 0.66 X 10*3/uL (0.90-5.00); Lymphocytes % (A) 22.3 %; MCV 90.6 FL (80.0-97.0); Mean Platelet Volume 10.8 FL (9.5-12.2); Monocytes # (A) 0.56 X 10*3/uL (0.20-1.00); Monocytes % (A) 18.9 %; NRBC Per 100 WBC 0 X 10*3/uL (0.00-0.01); Neutrophils # (A) 1.68 X 10*3/uL (1.80-7.70); Neutrophils % (A) 56.8 %; Platelet Count 114 X 10*3/uL (140-440); RBC 3.72 X 10*6/uL (4.40-5.60); RDW 14.8 % (11.5-14.5); WBC 2.96 X 10*3/uL (4.50-10.00)
[2024-06-05] MEDS: FUROSEMIDE 10 MG/ML 2 ML VIAL IV ONE (10:14)
--- NOTE | 2024-06-05 14:27 | P.PN ---
Subjective Progress Note Date: 06/05/24 Hospital Course: Patient is a 84 year-old male with a atrial fibrillation on warfarin, with permanent pacemaker, history of CVA/TIA, hyperlipidemia, hypertension, prostate cancer with radiation in 2015 currently in remission, thyroid disorder, osteoarthritis, and recurrent UTIs secondary to neurogenic bladder(follow with Dr. Padilla) presenting with generalized weakness and chills. Patient was recently discharged for UTI and weakness and started on oral antibiotic course. Typically ambulates with walker. He states this came on yesterday afternoon, when he had trouble getting out of recliner. Shortly after, he was not able to stand up. Patient endorsing chills and diarrhea since starting Augmentin. Denies shortness of breath, chest pain, bodyaches, nausea, vomiting, back, neck pain, cough, sore throat. Admits to history of multiple UTI due to self- catheterization 4 times daily. States he feels weaker every time he has a UTI. Patient denied dysuria, hematuria. Vitals on admission Temperature 99.6, heart rate 78 bpm, respiratory rate 20, blood pressure 156/83, O2 saturation 95% on room air EKG independently interpreted as regular rate 74 bpm, QTc 375 ms Labs on admission show WBC 7.4, hemoglobin 11.9, MCV 93.6, platelets 136. Sodium 137, potassium 5.6(slight hemolysis) repeat was 3.9, chloride 106, bicarb 24, BUN 19, creatinine 1.42, glucose 97. UA was negative for leukocyte esterase, trace protein, trace ketones trace blood. 06/04/24 Patient seen and examined at bedside. No acute events overnight. Patient is complaining of loose stools which began after antibiotics were initiated. He denies any abdominal pain, fevers, chills, shortness of breath. Pertinent positives and negatives discussed above, a complete review of systems was preformed and all the other systems were negative. Vitals Signs Reviewed. General: non toxic, no distress, appears at stated age, normal weight Derm: no unusual rashes/lesions, warm Head: atraumatic, normocephalic, symmetric Eyes: EOMI, anicteric sclera, pupils equal round reactive to light ENT: Nose and ears atraumatic Neck: No cervical lymphadenopathy, trachea midline, supple Mouth: no lip lesion, mucus membranes moist Cardiovascular: S1S2 reg, no murmur, positive dorsalis pedis pulse bilateral, no edema Lungs: Bilateral crackles and rhonchi throughout which improved after lasix Abdominal: soft, nontender to palpation, no guarding Ext: muscle strength 5 out of 5 in all 4 extremities grossly, no gross muscle atrophy, no contractures, Neuro: CN II-XI grossly intact, no gross focal neuro deficits Psych: Alert, oriented, appropriate affect Data Reviewed Today: Patient Labs: WBCs 2.96, hemoglobin 10.8, MCV 90.6, platelets 114. PT 19.7, INR 1.9. Sodium 140, potassium 3.5, chloride 106, bicarb 24.8, BUN 26, creatinine 1.4, glucose 94. Imaging: Chest x-ray shows small pleural effusions bilaterally. Assessment and Plan: 84 year-old male with a atrial fibrillation on warfarin, with permanent pacemaker, history of CVA/TIA, hyperlipidemia, hypertension, prostate cancer with radiation in 2014 currently in remission, thyroid disorder, osteoarthritis, and recurrent UTIs secondary to neurogenic bladder(follow with Dr. Padilla) presenting with generalized weakness and chills. Generalized weakness & chills likely secondary to infections Influenza A infection Recent admission for UTI Continue Oseltamivir 30 mg PO Q12HR, 6/10 doses Continue Augmentin 875-125 PO BID, 5/6 days Intake output, Mendenhall catheter in place Abdomen bladder ultrasound shows suspicion for moderate left-sided hydronephrosis Follow-up blood cultures PT/OT consulted, recommend MARY Encouraged incentive spirometer Pancytopenia, likely multifactorial Continue to monitor Mild CHF exacerbation, NT proBNP 5830 Patient received 1 dose of IV Lasix 20 mg Strict intake and output Daily weight Cardiac monitoring Obtain daily BMP and Magnesium levels Chronic kidney disease Close to baseline History of recurrent UTI and urinary retention Chronic: Atrial fibrillation, on warfarin with permanent pacemaker INR is 1.8, continue to monitor Continue metoprolol 75 mg p.o. twice daily Keep potassium > 4.0 and magnesium > 2 Continue with digoxin 125 mcg p.o. at bedtime Cardiac monitoring Hypertension History of CVA/TIA Hyperlipidemia Continue atorvastatin 40 mg p.o. at bedtime Aspirin 81 mg p.o. daily Continue Ramipril 10mg PO HS Continue with metoprolol 75 mg p.o. twice daily BPH Continue with Flomax 0.4 mg p.o. twice daily F: NONE E: Replete as needed N: Heart healthy diet A: PT/OT consulted DVT prophylaxis: Warfarin for Afib Objective - Vital Signs Vital signs: Vital Signs Temp 97.5 F L 06/05/24 07:12 Pulse 62 06/05/24 08:00 Resp 18 06/05/24 08:00 BP 118/66 06/05/24 07:12 Pulse Ox 95 06/05/24 07:12 FiO2 Intake & Output 06/04/24 06/05/24 06/05/24 18:59 06:59 18:59 Output Total 2550 1800 Balance -2550 -1800 Output: Urine 2550 1800 Other: Voiding Method Indwelling Catheter Indwelling Catheter # Bowel Movements 3 - Labs CBC & Chem 7: 06/05/24 03:19 06/05/24 03:19 Labs: Abnormal Lab Results - Last 24 Hours (Table) 06/05/24 06/05/24 06/05/24 Range/Units 03:19 03:19 03:19 WBC 2.96 L (4.50-10.00) X 10*3/uL RBC 3.72 L (4.40-5.60) X 10*6/uL Hgb 10.8 L (13.0-17.0) g/dL Hct 33.7 L (39.6-50.0) % RDW 14.8 H (11.5-14.5) % Plt Count 114 L (140-440) X 10*3/uL Neutrophils # 1.68 L (1.80-7.70) X 10*3/uL Lymphocytes # 0.66 L (0.90-5.00) X 10*3/uL Eosinophils # 0.03 L (0.04-0.35) X 10*3/uL PT 19.7 H (10.0-12.5) sec INR 1.9 H (<1.2) Est GFR (CKD-EPI) 50 L (>=60) Calcium 7.8 L (8.7-10.3) mg/dL Microbiology - Last 24 Hours (Table) 06/02/24 14:02 Blood Culture - Preliminary Blood
[2024-06-05] MEDS: WARFARIN 2 MG TAB PO ONE (17:51)
[2024-06-05] MEDS ORDERED: ZINC OXIDE PASTE (Z-GUARD) 1 APPLIC TOPICAL PRN (19:55)
[2024-06-05] MEDS: LOPERAMIDE 2 MG CAP PO PRN (22:42)
[2024-06-06 04:51] LABS: Prothrombin Time 20.2 sec (10.0-12.5)
[2024-06-06] MEDS ORDERED: FLUTICASONE NASAL 50MCG/SPRAY 16GM BTL EA NOSTRIL PRN (10:04)
[2024-06-06 10:23] LABS: Basophils % (A) 1 %; Eosinophils # (A) 0.1 k/uL (0-0.7); Eosinophils % (A) 3 %; HGB 11.8 gm/dL (13.0-17.5); Hypochromasia Slight; Lymphocytes # (A) 0.6 k/uL (1.0-4.8); Lymphocytes % (A) 20 %; MCH 30.4 pg (25.0-35.0); MCHC 32.8 g/dL (31.0-37.0); MCV 92.5 fL (80.0-100.0); Mean Platelet Volume 7.6; Monocytes # (A) 0.2 k/uL (0-1.0); Monocytes % (A) 8 %; Neutrophils # (A) 1.8 k/uL (1.3-7.7); Neutrophils % (A) 67 %; Platelet Count 119 k/uL (150-450); RBC 3.89 m/uL (4.30-5.90); RDW 14.3 % (11.5-15.5); WBC 2.7 k/uL (3.8-10.6)
[2024-06-06 10:40] LABS: African American GFR (CKD) 60 (>60 ml/min/1.73 sqM); Anion Gap 5 mmol/L; Blood Urea Nitrogen 27 mg/dL (9-20); Calcium 8.2 mg/dL (8.4-10.2); Carbon Dioxide 30 mmol/L (22-30); Chloride 103 mmol/L (98-107); Glucose 115 mg/dL (74-99); Magnesium 1.8 mg/dL (1.6-2.3); Non-African American GFR(CKD) 52 (>60 ml/min/1.73 sqM); Potassium 3.6 mmol/L (3.5-5.1); Sodium 138 mmol/L (137-145)
[2024-06-06 10:47] VITALS: BP 113/54; PULSE 60; RESP 20; TEMP 97.6
--- NOTE | 2024-06-06 14:20 | P.DS ---
Providers Date of admission: 06/03/24 12:33 Expected date of discharge: 06/06/24 Attending physician: Oswald Courtney MD Primary care physician: Jeison Reyes Hospital Course: Discharge diagnoses; Generalized weakness/chills likely secondary to infections Influenza A infection Pancytopenia Mild CHF exacerbation Chronic kidney disease Atrial fibrillation on warfarin with permanent pacemaker Hypertension History of CVA/TIA Hyperlipidemia BPH Hospital course; Patient is a 84 year-old male with a atrial fibrillation on warfarin, with permanent pacemaker, history of CVA/TIA, hyperlipidemia, hypertension, prostate cancer with radiation in 2014 currently in remission, thyroid disorder, osteoarthritis, and recurrent UTIs secondary to neurogenic bladder(follow with Dr. Padilla) presenting with generalized weakness and chills. Patient was recently discharged for UTI and weakness and started on oral antibiotic course. Typically ambulates with walker. He states this came on yesterday afternoon, when he had trouble getting out of recliner. Shortly after, he was not able to stand up. Patient endorsing chills and diarrhea since starting Augmentin. Denies shortness of breath, chest pain, bodyaches, nausea, vomiting, back, neck pain, cough, sore throat. Admits to history of multiple UTI due to self- catheterization 4 times daily. States he feels weaker every time he has a UTI. Patient denied dysuria, hematuria.Vitals on admission Temperature 99.6, heart rate 78 bpm, respiratory rate 20, blood pressure 156/83, O2 saturation 95% on room air. EKG independently interpreted as regular rate 74 bpm, QTc 375 ms. Labs on admission show WBC 7.4, hemoglobin 11.9, MCV 93.6, platelets 136. Sodium 137, potassium 5.6(slight hemolysis) repeat was 3.9, chloride 106, bicarb 24, BUN 19, creatinine 1.42, glucose 97. UA was negative for leukocyte esterase, trace protein, trace ketones trace blood. 06/06/24 Patient seen and examined at bedside today. Patient has noticed a significant improvement in his breathing. Patient denies any chest pain, shortness of breath or other complaints at this time. Patient will be discharged to [facility] today. Patient is advised to be compliant with medications. Patient is advised to follow-up with PCP in 1 to 2 days. Physical Exam: General: nontoxic, no distress, appears at stated age Derm: warm, dry, intact Head: atraumatic, normocephalic, symmetric Eyes: EOMI, anicteric sclera ENT: Patient has bilateral ear tubes Mouth: no lip lesion, mucus membranes moist Cardiovascular: S1 S2 reg, no murmur, rubs, or gallops Lungs: CTA bilateral, bilateral rhonchi, no rales, no accessory muscle use Abdominal: soft, non-tender to palpataion, no appreciable organomegaly Extremities: no gross muscle atrophy, no edema, no contractures Neuro: Alert, Oriented, CNII-XII grossly intact, gait normal Psych: well appearing, appropriate affect Dictation was produced using [employer] dictation software. please excuse any grammatical, word or spelling errors. A total of minutes of time were spent preparing this complex discharge summary. Patient was discharged on 06/06/2024 at 1411. Patient Condition at Discharge: Fair Plan - Discharge Summary New Discharge Prescriptions: New Warfarin [Coumadin] 2 mg PO DAILY #30 tab Potassium Chloride ER [K-Dur 10] 10 meq PO DAILY #30 tab Furosemide [Lasix] 20 mg PO DAILY #30 tablet Continue Isosorbide Mononitrate [Imdur] 60 mg PO HS Aspirin 81 mg PO DAILY@0730 Digoxin [Lanoxin] 125 mcg PO HS Simvastatin [Zocor] 40 mg PO HS Metoprolol Tartrate [Lopressor] 75 mg PO BID@0730,1800 Vitamin B Complex 1 cap PO MOTH Cyanocobalamin (Vitamin B-12) [Vitamin B-12] 1,000 mcg PO DAILY Baclofen 10 mg PO HS ramipriL [Altace] 10 mg PO HS Gabapentin 600 mg PO HS Cholecalciferol (Vitamin D3) [Vitamin D3 (50 Mcg = 2000 Iu)] 50 mcg PO DAILY Tamsulosin [Flomax] 0.4 mg PO BID-W/MEALS 15 Days #30 cap Discontinued Warfarin [Coumadin] 2.5 mg PO MO@1830 Warfarin [Coumadin] 1.25 mg PO SUTUWETHFRSA@1830 Amoxic-Pot Clav 875-125Mg [Augmentin 875-125] 1 tab PO Q12HR 7 Days #14 tab Discharge Medication List Aspirin 81 mg PO DAILY@0730 09/02/13 [History] Digoxin [Lanoxin] 125 mcg PO HS 09/02/13 [History] Isosorbide Mononitrate [Imdur] 60 mg PO HS 05/13/14 [History] Simvastatin [Zocor] 40 mg PO HS 09/02/13 [History] Metoprolol Tartrate [Lopressor] 75 mg PO BID@0730,1800 04/20/20 [History] Cholecalciferol (Vitamin D3) [Vitamin D3 (50 Mcg = 2000 Iu)] 50 mcg PO DAILY 08/25/23 [History] Cyanocobalamin (Vitamin B-12) [Vitamin B-12] 1,000 mcg PO DAILY 08/25/23 [History] Gabapentin 600 mg PO HS 08/25/23 [History] Vitamin B Complex 1 cap PO MOTH 08/25/23 [History] Baclofen 10 mg PO HS 02/22/24 [History] Tamsulosin [Flomax] 0.4 mg PO BID-W/MEALS 15 Days #30 cap 02/25/24 [Rx] ramipriL [Altace] 10 mg PO HS 05/28/24 [History] Furosemide [Lasix] 20 mg PO DAILY #30 tablet 06/06/24 [Rx] Potassium Chloride ER [K-Dur 10] 10 meq PO DAILY #30 tab 06/06/24 [Rx] Warfarin [Coumadin] 2 mg PO DAILY #30 tab 06/06/24 [Rx] Follow up Appointment(s)/Referral(s): Jeison Reyes MD [Primary Care Provider] - 1-2 days Discharge Disposition: TRANSFER TO SNF/ECF
[2024-06-06] MEDS ORDERED: WARFARIN 1.25 MG TAB PO ONE (18:00)
[2024-06-06] MEDS ORDERED: lisinopriL 20 MG TAB PO SCH (21:00)
--- NOTE | 2024-06-09 14:10 | CDI ---
Documentation Clarification Form Date: 06/09/2024 01:46:03 PM From: Susy Pickett RN, CCDS Email: [email or web address] Admit Date: 06/03/2024 12:33:00 PM Patient Name: Semaj Peralta Visit Number: [id number] Discharge Date: 06/06/2024 03:56:00 PM ATTENTION: The Clinical Documentation Specialists (CDI) and [facility] Coding Staff appreciate your assistance in clarifying documentation. Please respond to the clarification below the line at the bottom and electronically sign. The CDI & [facility] Coding staff will review the response and follow-up if needed. Please note: Queries are made part of the Legal Health Record. If you have any questions, please contact the author of this message via ITS. Doctor Oswald Courtney The patient had the documented diagnosis of mild CHF exacerbation. Additional information regarding the type of CHF is requested. History/Risk Factors: atrial fibrillation on warfarin, with permanent pacemaker, CVA/TIA, hyperlipidemia, hypertension, prostate cancer with radiation in 2014 currently in remission, thyroid disorder, osteoarthritis, and recurrent UTIs secondary to neurogenic bladder. Presents with generalized weakness and chills. Admitted with influenza A infection, pancytopenia and mild CHF exacerbation. Clinical Indicators: 06/01-06/06 Pulse OX: 90-98% 06/04 BNP: 5830 06/04 Chest X Ray: Cardiomegaly with new small right and moderate-sized left pleural effusions and new left greater than right bibasilar acute infiltrate and/or atelectasis. 06/05 IM: "Lungs: Bilateral crackles and rhonchi throughout which improved after Lasix. Mild CHF exacerbation, NT proBNP 5830." 06/06 Discharge summary: "Mild CHF exacerbation." Treatment: IV Lasix 20mg x1 on 06/04 and 06/05; Lisinopril 40mg po QHS 06/02-06/05; Lopressor 75mg po BID 06/02-06/06 In your professional opinion, can you please clarify the type of CHF if known? [ ] Acute Systolic Heart Failure (reduced EF) [ ] Acute on Chronic Systolic Heart Failure (reduced EF) [ x ] Acute Diastolic Heart Failure (preserved EF) [ ] Acute on Chronic Diastolic Heart Failure (preserved EF) [ ] Acute Systolic & Diastolic Heart Failure [ ] Acute on Chronic Heart Failure Systolic & Diastolic Heart Failure [ ] Other, please specify [ ] Unable to determine MTDD
== END 2024-06-06 15:56 | DRG 193 ==
LOC: EC 18:05 → 5NMEDONC 22:53 → 4SSUR 06-02 22:08 → OBSVTOIN 06-03 12:33
PROVIDERS: ADMIT Internal Medicine; ATTEND Internal Medicine
DX: J10.1 Influenza due to other identified influenza virus with other respiratory manifestations (principal); I50.31 Acute diastolic (congestive) heart failure; D61.818 Other pancytopenia; I13.0 Hypertensive heart and chronic kidney disease with heart failure and stage 1 through stage 4 chronic kidney disease, or unspecified chronic kidney disease; N18.9 Chronic kidney disease, unspecified; N39.0 Urinary tract infection, site not specified; I48.91 Unspecified atrial fibrillation; Z11.52 Encounter for screening for COVID-19; N31.9 Neuromuscular dysfunction of bladder, unspecified; E78.5 Hyperlipidemia, unspecified; I25.2 Old myocardial infarction; M19.90 Unspecified osteoarthritis, unspecified site; N40.0 Benign prostatic hyperplasia without lower urinary tract symptoms; E07.9 Disorder of thyroid, unspecified; Z79.01 Long term (current) use of anticoagulants; Z79.82 Long term (current) use of aspirin; Z79.899 Other long term (current) drug therapy; Z82.49 Family history of ischemic heart disease and other diseases of the circulatory system; Z85.46 Personal history of malignant neoplasm of prostate; Z86.73 Personal history of transient ischemic attack (TIA), and cerebral infarction without residual deficits; Z87.440 Personal history of urinary (tract) infections; Z87.891 Personal history of nicotine dependence; Z92.3 Personal history of irradiation
CPT/HCPCS: 36415; 71045; 76770; 80048; 80053; 81001; 83735; 83880; 84145; 85025; 85027; 85610; 85652; 86140; 87040; 87324; 87636; 99285